=== PATIENT | female | born 1960 | race Caucasian/White ===

== ENCOUNTER 2017-12-20 06:11 | Inpatient (IN) | payer OTHER ==
[2017-12-20] MEDS ORDERED: IPRATROPIUM BROM 0.5MG/2.5ML ONE (06:38)
[2017-12-20] MEDS ORDERED: LEVALBUTEROL 1.25 MG/3 ML NEB ONE (06:38)
[2017-12-20 06:52] LABS: Absolute Lymphocytes (CBC) 4.6 K/uL (0.7-4.9); Absolute Neutrophil 7.2 K/uL (1.8-8.0); Basophils % 0.7 % (0-1.3); Eosinophils % 1.4 % (0-4.4); Hematocrit 42.4 % (36.0-45.0); Lymphocytes % 35.4 % (15.3-44.8); MCH 27.5 pg (27.0-35.0); MCV 86.2 fL (80-100); MPV 8.7 fL (7.6-11.3); Monocytes % 7.5 % (3.3-12.3); RBC Red Blood Cell Count 4.92 M/uL (3.86-4.86)
[2017-12-20 07:07] LABS: Protime INR 0.85
[2017-12-20 07:12] LABS: Potassium 3.9 mEq/L (3.6-5.0)
--- NOTE | 2017-12-20 07:15 | ER ---
Nurse's Notes [facility] Name: Ansley Henderson Age: 57 yrs Sex: Female : 1960 Arrival Date: 12/20/2017 Time: 06:13 Bed 7 Private MD: Diagnosis: Chronic obstructive pulmonary disease with (acute) exacerbation;Hypoxemia Presentation: 12/20 06:15 Presenting complaint: EMS states: they were called out for SOB. Upon arrival to aa1 residence pt RA O2 sat 88%. Pt given albuterol tx x 1 which increased O2 sat to 94% on RA. Pt reports hx of COPD and has been having SOB for over a month but became significantly worse in the past 24 hrs. Transition of care: patient was not received from another setting of care. Onset of symptoms was November 2017. Care prior to arrival: Medication(s) given: Albuterol Neb x 1. 06:15 Method Of Arrival: EMS: [facility] aa 06:15 Acuity: ENMANUEL 2 aa1 Triage Assessment: 06:20 General: Appears distressed, uncomfortable, Behavior is calm, cooperative, appropriate aa1 for age. Pain: Complains of pain in chest. Historical: - Allergies: 06:22 No Known Allergies; aa1 - Home Meds: 06:20 albuterol sulfate 90 mcg/actuation Inhl HFAA 1 puff every 4 hours [Active]; aspirin 81 aa1 mg Oral TbEC 1 tab once daily [Active]; lisinopril 20 mg Oral tab 1 tab once daily [Active]; prednisone 10 mg Oral tab 1 tab 2 times per day [Active]; Spiriva with HandiHaler 18 mcg inhalation CpDv 1 cap once daily [Active]; - PMHx: 06:20 CAD; COPD; HEART STENT; Hypertension; CVA; aa1 - PSHx: 06:20 ; aa1 - Immunization history:: Flu vaccine is not up to date. - Social history:: Smoking status: Patient/guardian denies using tobacco, the patient reports quitting approximately 2 years ago. Screenin:40 Abuse screen: Denies threats or abuse. Denies injuries from another. Nutritional tl1 screening: No deficits noted. Tuberculosis screening: No symptoms or risk factors identified. Fall Risk IV access (20 points). Assessment: 06:38 General: Appears distressed, uncomfortable, Behavior is cooperative, appropriate for tl1 age, anxious. Pain: Complains of pain in chest Pain currently is 10 out of 10 on a pain scale. Quality of pain is described as pressure, stabbing. Neuro: Level of Consciousness is awake, alert, obeys commands, Oriented to person, place, time, situation. Cardiovascular: Reports chest pain, shortness of breath, Rhythm is sinus rhythm. Respiratory: Reports shortness of breath at rest labored breathing pain with respiration Airway is patent Trachea midline Respiratory effort is labored, gasping, with retractions, using tripod position, Respiratory pattern is tachypnea Breath sounds are diminished bilaterally. Breath sounds with wheezes the patient has moderate shortness of breath. GI: Abdomen is non-distended, Bowel sounds present X 4 quads. Abd is soft and non tender X 4 quads. : No signs and/or symptoms were reported regarding the genitourinary system. EENT: No signs and/or symptoms were reported regarding the EENT system. Derm: No signs and/or symptoms reported regarding the dermatologic system. 07:45 Reassessment: Patient appears in no apparent distress at this time. Patient and/or ph family updated on plan of care and expected duration. Pain level reassessed. Patient is alert, oriented x 3, equal unlabored respirations, skin warm/dry/pink. Pt c/o pain in R side of chest, states, " I've been having pain off and on." Pt reports that pain is sharp and stabbing, worsened by inspiration, VSS, Spo2 95% on RA. 09:07 Reassessment: Patient appears in no apparent distress at this time. Patient and/or ph family updated on plan of care and expected duration. Pain level reassessed. Patient is alert, oriented x 3, equal unlabored respirations, skin warm/dry/pink. Dr Lucero at bedside to speak w/ pt. 10:30 Reassessment: Patient appears in no apparent distress at this time. Patient and/or ph family updated on plan of care and expected duration. Pain level reassessed. Patient is alert, oriented x 3, equal unlabored respirations, skin warm/dry/pink. Pt ambulated to restroom, became SOB and tachypneic, taken back to room via wheelchair, Spo2 91% RA after reaching room, pt placed on 2L NC for comfort, Spo2 95%. Vital Signs: 06:20 BP 139 / 89; Pulse 88; Resp 44; Temp 97.2; Pulse Ox 94% on R/A; Weight 72.57 kg; Height aa1 5 ft. 1 in. (154.94 cm); Pain 10/10; 06:41 BP 123 / 62; Pulse 73; Resp 28; Pulse Ox 100% on BiPAP; tl1 07:44 BP 126 / 55; Pulse 86; Resp 22; Pulse Ox 95% on R/A; ph 09:08 BP 129 / 50; Pulse 86; Resp 18; Temp 97.8(TE); Pulse Ox 95% on R/A; ph 10:30 BP 136 / 68; Pulse 79; Resp 22; Temp 97.8; Pulse Ox 95% on 2 lpm NC; ph 06:20 Body Mass Index 30.23 (72.57 kg, 154.94 cm) aa1 ED Course: 06:13 Patient arrived in ED. em1 06:17 Agustín Claudio MD is Attending Physician. tw4 06:19 Triage completed. aa1 06:20 Arm band placed on right wrist. Patient placed in an exam room, on a stretcher. aa1 06:29 X-ray completed. Portable x-ray completed in exam room. Patient tolerated procedure kp1 well. 06:30 XRAY Chest (1 view) In Process Unspecified. EDMS 06:41 No provider procedures requiring assistance completed. Inserted saline lock: 20 gauge tl1 in right antecubital area, using aseptic technique. Blood collected. 07:12 Sd Lucero MD is Hospitalizing Provider. tw4 07:32 Key Pickens, MESHA is Primary Nurse. ph 10:45 Patient has correct armband on for positive identification. Placed in gown. Bed in low ph position. Call light in reach. Side rails up X 1. laboratory monitor on. Pulse ox on. NIBP on. Warm blanket given. 10:45 Patient admitted, IV remains in place. ph Administered Medications: 06:22 Drug: Albuterol - atroVENT (3:1) (2.5 mg - 0.5 mg) 3 ml Route: Nebulizer; tl2 07:43 Follow up: Response: No adverse reaction ph 07:41 Drug: SOLU-Medrol 125 mg Route: IVP; Site: right antecubital; ph 07:43 Follow up: Response: No adverse reaction ph Outcome: 07:14 Decision to Hospitalize by Provider. tw4 10:50 Admitted to Tele accompanied by tech, via wheelchair, room 426, with oxygen, with ph chart, Report called to MESHA Levi 10:50 Condition: stable 10:50 Instructed on the need for admit. 11:04 Patient left the ED. ms Signatures: Dispatcher [employer] EDVirginia Sanchez RN RN aa1 Kayla Pickens ms, Eric em1 Lynnette Man RN RN tl1 Key Pickens RN RN Victoriano, Anamaria RN RN tl2 Zoe Rangel kp1 Agustín Claudio MD MD tw4 Corrections: (The following items were deleted from the chart) 09:08 09:07 Reassessment: Patient appears in no apparent distress at this time. Patient ph and/or family updated on plan of care and expected duration. Pain level reassessed. Patient is alert, oriented x 3, equal unlabored respirations, skin warm/dry/pink. ph
--- NOTE | 2017-12-20 07:15 | EDPHYS ---
Physician Documentation [facility] Name: Ansley Henderson Age: 57 yrs Sex: Female : 1960 Arrival Date: 12/20/2017 Time: 06:13 Bed 7 Private MD: ED Physician Agustín Claudio HPI: 12/20 06:33 This 57 yrs old Female presents to ER via EMS with complaints of SOB. tw4 06:33 The patient has shortness of breath at rest. Onset: The symptoms/episode began/occurred tw4 today. Duration: The symptoms are continuous, and are unchanged since they started. The patient's shortness of breath has no apparent modifying factors. Associated signs and symptoms: The patient has no apparent associated signs or symptoms. Severity of symptoms: At their worst the symptoms were moderate in the emergency department the symptoms are unchanged. The patient has not experienced similar symptoms in the past. Historical: - Allergies: 06:22 No Known Allergies; aa1 - Home Meds: 06:20 albuterol sulfate 90 mcg/actuation Inhl HFAA 1 puff every 4 hours [Active]; aspirin 81 aa1 mg Oral TbEC 1 tab once daily [Active]; lisinopril 20 mg Oral tab 1 tab once daily [Active]; prednisone 10 mg Oral tab 1 tab 2 times per day [Active]; Spiriva with HandiHaler 18 mcg inhalation CpDv 1 cap once daily [Active]; - PMHx: 06:20 CAD; COPD; HEART STENT; Hypertension; CVA; aa1 - PSHx: 06:20 ; aa1 - Immunization history:: Flu vaccine is not up to date. - Social history:: Smoking status: Patient/guardian denies using tobacco, the patient reports quitting approximately 2 years ago. ROS: 06:33 Constitutional: Negative for fever, chills, and weight loss, Eyes: Negative for injury, tw4 pain, redness, and discharge, Cardiovascular: Negative for chest pain, palpitations, and edema, Abdomen/GI: Negative for abdominal pain, nausea, vomiting, diarrhea, and constipation, Back: Negative for injury and pain. 06:33 Neuro: Negative for headache, weakness, numbness, tingling, and seizure, Psych: Negative for depression, anxiety, suicide ideation, homicidal ideation, and hallucinations. 06:33 Respiratory: Positive for cough, dyspnea on exertion, shortness of breath, wheezing, Negative for hemoptysis, orthopnea, pleurisy. Exam: 06:33 Constitutional: This is a well developed, well nourished patient who is awake, alert, tw4 and in no acute distress. Head/Face: Normocephalic, atraumatic. Chest/axilla: Normal chest wall appearance and motion. Nontender with no deformity. No lesions are appreciated. Cardiovascular: Regular rate and rhythm with a normal S1 and S2. No gallops, murmurs, or rubs. Normal PMI, no JVD. No pulse deficits. Respiratory: Lungs have equal breath sounds bilaterally, clear to auscultation and percussion. No rales, rhonchi or wheezes noted. No increased work of breathing, no retractions or nasal flaring. Abdomen/GI: Soft, non-tender, with normal bowel sounds. No distension or tympany. No guarding or rebound. No evidence of tenderness throughout. MS/ Extremity: Pulses equal, no cyanosis. Neurovascular intact. Full, normal range of motion. Neuro: Awake and alert, GCS 15, oriented to person, place, time, and situation. Cranial nerves II-XII grossly intact. Motor strength 5/5 in all extremities. Sensory grossly intact. Cerebellar exam normal. Normal gait. Vital Signs: 06:20 BP 139 / 89; Pulse 88; Resp 44; Temp 97.2; Pulse Ox 94% on R/A; Weight 72.57 kg; Height aa1 5 ft. 1 in. (154.94 cm); Pain 10/10; 06:41 BP 123 / 62; Pulse 73; Resp 28; Pulse Ox 100% on BiPAP; tl1 07:44 BP 126 / 55; Pulse 86; Resp 22; Pulse Ox 95% on R/A; ph 09:08 BP 129 / 50; Pulse 86; Resp 18; Temp 97.8(TE); Pulse Ox 95% on R/A; ph 10:30 BP 136 / 68; Pulse 79; Resp 22; Temp 97.8; Pulse Ox 95% on 2 lpm NC; ph 06:20 Body Mass Index 30.23 (72.57 kg, 154.94 cm) aa1 MDM: 06:17 Patient medically screened. tw4 07:10 Differential diagnosis: Chronic Obstructive Pulmonary Disease. Data reviewed: vital tw4 signs, nurses notes. Test interpretation: by ED physician or midlevel provider: ECG. Counseling: I had a detailed discussion with the patient and/or guardian regarding: the historical points, exam findings, and any diagnostic results supporting the discharge/admit diagnosis, lab results, radiology results. Physician consultation: Sd Lucero MD was contacted at 07:05, regarding admission, to the telemetry unit. patient's condition, and will see patient in ED. Admission orders: after a detailed discussion of the patient's condition and case, the admit orders are written by me. ED course: pt placed on BiPAP states she feels better. 12/20 06:21 Order name: Basic Metabolic Panel tw4 12/20 06:21 Order name: BNP tw4 12/20 06:21 Order name: CBC with Diff; Complete Time: 07:05 tw4 12/20 06:21 Order name: Ckmb tw4 12/20 06:21 Order name: CPK tw4 12/20 06:21 Order name: LFT's tw4 12/20 06:21 Order name: Magnesium tw4 12/20 06:21 Order name: PT-INR tw4 12/20 06:21 Order name: Ptt, Activated tw4 12/20 06:21 Order name: Troponin (emerg Dept Use Only) tw4 12/20 06:21 Order name: XRAY Chest (1 view) tw4 12/20 06:21 Order name: BIPAP tw4 12/20 07:15 Order name: ABG tw4 12/20 07:15 Order name: ABG Arterial Blood Gas [facility] 12/20 06:21 Order name: EKG; Complete Time: 06:22 tw12/20 06:21 Order name: Cardiac monitoring; Complete Time: 06:22 tw4 12/20 06:21 Order name: EKG - Nurse/Tech; Complete Time: 06:22 tw4 12/20 06:21 Order name: IV Saline Lock; Complete Time: 06:22 tw4 12/20 06:21 Order name: Labs collected and sent; Complete Time: 06:22 tw4 12/20 06:21 Order name: O2 Per Protocol; Complete Time: 06:22 tw4 12/20 06:21 Order name: O2 Sat Monitoring; Complete Time: 06:22 tw4 Administered Medications: 06:22 Drug: Albuterol - atroVENT (3:1) (2.5 mg - 0.5 mg) 3 ml Route: Nebulizer; tl2 07:43 Follow up: Response: No adverse reaction ph 07:41 Drug: SOLU-Medrol 125 mg Route: IVP; Site: right antecubital; ph 07:43 Follow up: Response: No adverse reaction ph Disposition: 12/20/17 07:14 Hospitalization ordered by Sd Lucero for Inpatient Admission. Preliminary diagnosis are Chronic obstructive pulmonary disease with (acute) exacerbation, Hypoxemia. - Bed requested for Telemetry/MedSurg (Inpatient). - Status is Inpatient Admission. ms - Condition is Fair. - Problem is an ongoing problem. - Symptoms are unchanged. UTI on Admission? No Signatures: Dispatcher [employer] Virginia Barcenas, RN RN aa1 Kayla Pickens ms, Shelby, RN RN Key Pickens RN RN [facility] RN RN tl2 Agustín Claudio MD MD tw4
[2017-12-20 07:18] LABS: Albumin 4.4 g/dL (3.2-5.5); Bilirubin Direct 0.1 mg/dL (0-0.2); Bilirubin Total 0.9 mg/dL (0.3-1.2); Magnesium 1.9 mg/dL (1.8-2.5); Protein, Total 7.5 g/dL (6.0-8.3)
[2017-12-20 07:22] LABS: CKMB Creatine Kinase MB 8.4 ng/ml (0.3-4.0)
[2017-12-20 07:31] LABS: Arterial Blood Carboxyhemoglob 0.5 % (0-1.5); Blood Gas Oxyhemoglobin 98.1 % (94-97); Blood O2 Saturation 99.4 % (92-98.5)
[2017-12-20] MEDS ORDERED: METHYLPREDNISOLONE 125 MG INJ ONE (07:54)
--- NOTE | 2017-12-20 09:56 | P.HP ---
Certification for Inpatient Patient admitted to: Observation With expected LOS: <2 Midnights Patient will require the following post-hospital care: None Practitioner: I am a practitioner with admitting privileges, knowledge of patient current condition, hospital course, and medical plan of care. Services: Services provided to patient in accordance with Admission requirements found in Title 42 Section 412.3 of the Code of Federal Regulations Patient History Date of Service: 12/20/17 (Hospitalist note) Reason for admission: Right-sided chest pain History of Present Illness: Patient is 57 years of age with a history off COPD noncompliance has not followed up with me for quite some time admitted with sudden onset of right- sided chest pain worse in the supine position unable to take a deep breath denies any fever chills cough sputum or hemoptysis no other complaints was admitted here from the emergency room Allergies No Known Allergies Allergy (Verified 01/18/17 22:07) Home Medications: Acetaminophen [Tylenol Extra Strength] 1,000 mg PO DAILY 01/18/17 Aspirin Chewable [Aspirin Chewable*] 81 mg PO DAILY 01/18/17 Albuterol Sulfate [Albuterol Sulfate 0.083% Neb Soln] 2.5 mg IH TID PRN #90 ml 01/20/17 Albuterol Sulfate [Proair Hfa] 8.5 gm IH TID PRN #90 hfa.aer.ad 01/20/17 Amlodipine [Norvasc*] 10 mg PO DAILY #30 tab 01/20/17 Carvedilol [Coreg*] 6.25 mg PO BID #60 tab 01/20/17 Fluticasone/Salmeterol [Advair 250/50 Diskus*] 1 puff IH BID #1 disk 01/20/17 Lisinopril [Prinivil*] 20 mg PO BID #60 tab 01/20/17 Omeprazole Magnesium [Prilosec Otc] 20 mg PO DAILY #30 tablet. 01/20/17 Prednisone [Prednisone*] 20 mg PO SEECOM #15 tab 01/20/17 Sulfamethoxazole/Trimethoprim [Bactrim Ds Tablet] 1 each PO BID #14 tablet 01/20 Tramadol HCl [Ultram] 50 mg PO TID PRN #15 tablet 01/20/17 - Past Medical/Surgical History Diabetic: No -: Hypertension -: Coronary artery disease, stent -: COPD -: hx Tobacco abuse -: GERD -: Gastric ulcers -: -: Stent placement Psychosocial/ Personal History: The patient is . She has 5 children. She currently lives by herself. She recently moved to the area from [place]. - Family History Mother -: Heart disease - Social History Alcohol use: Yes CD- Drugs: No Caffeine use: Yes Review of Systems 10-point ROS is otherwise unremarkable Physical Examination - Physical Exam General: Alert, Oriented x3 HEENT: Atraumatic Neck: Supple Respiratory: Clear to auscultation bilaterally, Diminished Cardiovascular: No edema, Normal S1 S2 Gastrointestinal: Normal bowel sounds, Soft and benign Musculoskeletal: No clubbing, No swelling, No contractures Integumentary: No rashes, No significant lesion Neurological: Normal speech, Normal strength at 5/5 x4 extr - Studies Laboratory Data (last 24 hrs) 12/20/17 05:15: PT 10.0, INR 0.85, APTT 29.8 12/20/17 05:15: WBC 13.1 H, Hgb 13.5, Hct 42.4, Plt Count 356 12/20/17 05:15: B-Natriuretic Peptide 12 12/20/17 05:15: Sodium 133 L, Potassium 3.9, BUN 16, Creatinine 0.75, Glucose 122 H, Magnesium 1.9, Total Bilirubin 0.9, AST 20, ALT 21, Alkaline Phosphatase 72 Assessment and Plan - Problems (Diagnosis) (1) Chest pain Onset Date: 01/20/17 Current Visit: No Status: Acute Plan: Patient is 57 years of age with a history of COPD noncompliance active smoker admitted with sudden onset of right-sided chest pain which is worse in the supine positions came on rather suddenly noncompliant with it inhalers patient' s chest x-ray is clear mildly elevated white count mildly hypoxic will Dc BiPAP start on bronchodilators steroids is atypical cuff chest pain monitor resume her home medication possible discharge tomorrow troponins Qualifiers: Chest pain type: chest pain on breathing Qualified Code(s): R07.1 - Chest pain on breathing; R07.81 - Pleurodynia - Advance Directives Does patient have a Living Will: Yes Does patient have a Durable POA for Healthcare: No
[2017-12-20 11:09] VITALS: BMI 30.2
--- NOTE | 2017-12-20 11:44 | RAD REPORT ---
EXAM DESCRIPTION: RAD - Chest Single View - 12/20/2017 6:31 am CLINICAL HISTORY: Shortness of breath. COMPARISON: 05/30/2017 FINDINGS: Portable technique limits examination quality. The lungs are grossly clear. The heart is normal in size. No displaced fractures. IMPRESSION: No acute intrathoracic process suspected.
--- NOTE | 2017-12-20 12:02 | EKG ---
Test Date: 2017-12-20 Test Time: 06:19:26 Digital Photographer: BRANDEE MEASUREMENT RESULTS: Intervals: Rate: 82 NJ: 126 QRSD: 72 QT: 368 QTc: 429 [employer]: P: 70 NJ: 126 QRS: 75 T: 72 INTERPRETIVE STATEMENTS: Normal sinus rhythm Normal ECG Compared to ECG 05/30/2017 15:33:41 No significant changes Electronically Signed On 12-20-17 12:02:09 CDT by Duc Winslow
[2017-12-20] MEDS: IPRATROPIUM BROM 0.5MG/2.5ML NEB SCH ×2 (13:30→19:48)
[2017-12-20] MEDS: METHYLPREDNISOLONE 40 MG INJ IV SCH (16:50)
[2017-12-20] MEDS ORDERED: ACETAMINOPHEN 500 MG TAB PO PRN (19:52)
[2017-12-21] MEDS: METHYLPREDNISOLONE 40 MG INJ IV SCH ×3 (00:36→16:33)
[2017-12-21] MEDS: IPRATROPIUM BROM 0.5MG/2.5ML NEB SCH ×6 (01:31→23:15)
[2017-12-21] MEDS ORDERED: ASPIRIN 81 MG CHEWABLE TABLET PO SCH (09:00)
[2017-12-21] MEDS ORDERED: RANITIDINE 150 MG TABLET PO SCH (09:00)
[2017-12-21] MEDS ORDERED: NITROGLYCERIN 0.4 MG/TAB SL PRN (09:31)
--- NOTE | 2017-12-21 09:38 | P.PN ---
Subjective Date of Service: 12/21/17 (Hospitalist) Chief Complaint: Right-sided chest pain No change she is still having a significant amount of discomfort and right admitted that chest worse with exertion for when she is lying down did by breathing no change with bronchodilators no ischemic changes Review of Systems General: Weakness Respiratory: Cough, Shortness of Breath Cardiovascular: Chest Pain Physical Examination - Vital Signs Temperature: 97 F Blood Pressure: 147/70 Pulse: 86 Respirations: 16 Pulse Ox (%): 90 - Physical Exam General: Alert, Oriented x3 Neck: Supple Respiratory: Clear to auscultation bilaterally Cardiovascular: No edema, Regular rate/rhythm, Normal S1 S2 Gastrointestinal: Normal bowel sounds, Soft and benign Assessment & Plan - Problems (Diagnosis) (1) Chest pain Onset Date: 01/20/17 Current Visit: No Status: Acute Plan: Patient admitted with chest pain she still continues to have chest pain despite the steroids and bronchodilators worse with exertion he points to the right- sided and retrosternal area of order another chest x-ray repeat EKG upon his negative EKGs normal cardiology consult Qualifiers: Chest pain type: chest pain on breathing Qualified Code(s): R07.1 - Chest pain on breathing; R07.81 - Pleurodynia
[2017-12-21] MEDS ORDERED: METOPROLOL TAR 25 MG TAB PO SCH (10:00)
[2017-12-21] MEDS ORDERED: ASPIRIN EC 81 MG TAB PO SCH (10:00)
--- NOTE | 2017-12-21 10:19 | EKG ---
Test Date: 2017-12-21 Test Time: 10:09:11 Japanese Tutor: SON MEASUREMENT RESULTS: Intervals: Rate: 88 TN: 136 QRSD: 76 QT: 356 QTc: 430 [place]: P: 69 TN: 136 QRS: 69 T: 70 INTERPRETIVE STATEMENTS: Normal sinus rhythm Normal ECG Compared to ECG 12/20/2017 06:19:26 No significant changes Electronically Signed On 12-21-17 10:18:54 CDT by Duc Winslow
[2017-12-21] MEDS: MORPHINE 4 MG/ML SYR IV PRN ×2 (10:21→23:51)
[2017-12-21 10:22] LABS: Hematocrit 39.5 % (36.0-45.0); MCH 27.9 pg (27.0-35.0); MCV 85.9 fL (80-100); MPV 8.7 fL (7.6-11.3)
[2017-12-21] MEDS: PANTOPRAZOLE 40MG TABLET PO SCH ×2 (10:22→16:33)
--- NOTE | 2017-12-21 10:57 | RAD REPORT ---
EXAM DESCRIPTION: [place] Single View12/21/2017 10:42 am CLINICAL HISTORY: Chest pain COMPARISON: December 20 2017 FINDINGS: The lungs are hyperaerated. The lungs appear clear of acute infiltrate. The heart is norm al size IMPRESSION: No acute abnormalities displayed
[2017-12-21] MEDS: ALBUTEROL 2.5 MG/3 ML NEB SOL NEB SCH ×4 (11:25→23:15)
[2017-12-21] MEDS ORDERED: IPRATROPIUM BROM 0.5MG/2.5ML ONE (11:43)
[2017-12-21] MEDS ORDERED: ALBUTEROL 2.5 MG/3 ML NEB SOL ONE (11:43)
[2017-12-21] MEDS: TIOTROPIUM (SPIRIVA) 5 SPRAYS/INHALER IH SCH (12:00)
--- NOTE | 2017-12-21 15:48 | CON ---
Chief Complaint: Chest pain. History Of Present Illness: Ms. Henderson has stent placed in her right coronary artery in April 2015 . Since then, she has had 4 separate evaluations for ischemic heart disease. They have all been neg ative. Nobody has repeated a cardiac cath, but she admitted in hospital, had negative enzymes, lalit l EKGs, normal stress test, normal echocardiogram, her last one was some 6 months ago, it was not don e here. The last one done in our hospital was January 20, 2017, so 11 months ago roughly. She is a heavy cigarette smoker. She has severe COPD. She has a record of poor medical compliance, often gets off medicines. She states that she quit smoking in April 2015. Outpatient Medications: Aspirin, albuterol, ranitidine, Spiriva, prednisone, and lisinopril. Allergies: SHE HAS NO ALLERGIES. Physical Examination: Vital Signs: 5 feet 1 inch, 160 pounds. General: Appears to be older than stated age. She is in [id number] respiratory distress. She is not wheezing. There was actually very little air movement. Lungs: Do not reveal wheezes or crackles. Abdomen: Soft. Extremities: Significant for palpable distal pulses. There is no cyanosis, clubbing, or edema. No ulcers. The EKG is normal and the troponins are all normal. Impression: Ms. Henderson is not having heart failure or an acute coronary syndrome. She is having se le asthma attack. Her chest x-ray would argue that is the case as well. The lungs are hyperinflat ed, diaphragm is depressed. There is no mass or infiltrate or pulmonary edema. I think we should in crease the amount of bronchodilator treatment she has. She is on metoprolol, which probably is harmf ul in her case. It is supposedly is cardioselective that I think her breathing probably got worse an d it is perhaps because of that she is on a significant dose of methylprednisolone when I think addin g albuterol to her regimen and increasing it every 4 hours would probably be helpful. When she is br eathing better, we can attempt a pharmacologic nuclear stress test. SH/MODL Voice ID: [id number] Report ID: [id number]
[2017-12-22] MEDS: METHYLPREDNISOLONE 40 MG INJ IV SCH ×2 (00:22→08:11)
[2017-12-22] MEDS: IPRATROPIUM BROM 0.5MG/2.5ML NEB SCH ×5 (03:36→19:28)
[2017-12-22] MEDS: ALBUTEROL 2.5 MG/3 ML NEB SOL NEB SCH ×5 (03:37→19:29)
[2017-12-22] MEDS: ARFORMOTEROL TARTRATE 15 MCG/2 ML VIAL.NEB NEB SCH ×2 (07:42→19:29)
[2017-12-22] MEDS: ASPIRIN EC 81 MG TAB PO SCH (08:11)
[2017-12-22] MEDS: PANTOPRAZOLE 40MG TABLET PO SCH ×2 (08:11→16:32)
[2017-12-22] MEDS: TIOTROPIUM (SPIRIVA) 5 SPRAYS/INHALER IH SCH (09:00)
[2017-12-22] MEDS: ALPRAZOLAM 0.25 MG TABLET PO PRN ×2 (09:52→20:28)
--- NOTE | 2017-12-22 11:06 | ECHO ---
HEIGHT: 5 ft 1 in WEIGHT: 160 lb 0 oz DATE OF STUDY: 12/22/[address]: Sd Lucero MD 2-DIMENSIONAL: YES M.MODE: YES DOPPLER: YES COLOR FLOW: YES TDS: NO PORTABLE: NO DEFINITY: NO BUBBLE STUDY: NO DIAGNOSIS: CHEST PAIN CARDIAC HISTORY: CATHERIZATION: YES SURGERY: NO PROSTHETIC VALVE: NO PACEMAKER: NO MEASUREMENTS (cm) DIASTOLIC (NORMALS) SYSTOLIC (NORMALS) IVSd 0.8 (0.6-1.2) LA Diam 2.7 (1.9-4.0) LVEF 71% LVIDd 3.7 (3.5-5.7) LVIDs 2.3 (2.0-3.5) %FS 39% LVPWd 0.9 (0.6-1.2) Ao Diam 2.7 (2.0-3.7) 2 DIMENSIONAL ASSESSMENT: RIGHT ATRIUM: NORMAL LEFT ATRIUM: NORMAL RIGHT VENTRICLE: NORMAL LEFT VENTRICLE: NORMAL TRICUSPID VALVE: NORMAL MITRAL VALVE: NORMAL PULMONIC VALVE: NORMAL AORTIC VALVE: NORMAL PERICARDIAL EFFUSION: NONE AORTIC ROOT: NORMAL LEFT VENTRICULAR WALL MOTION: NORMAL. DOPPLER/COLOR FLOW: PHYSIOLOGIC TRICUSPID REGURGITATION. NORMAL RIGHT VENTRICULAR SYSTOLIC PRESSURE. TRACE OF AORTIC REGURGITATION. COMMENTS: NORMAL 2D ECHO. TRACE OF AORTIC REGURGITATION. TECHNOLOGIST: GIANNA DUMONT
--- NOTE | 2017-12-22 11:35 | P.PN ---
Subjective Date of Service: 12/22/17 Chief Complaint: Right-sided chest pain Subjective: Doing well Physical Examination - Vital Signs Temperature: 97.1 F Blood Pressure: 130/69 Pulse: 71 Respirations: 16 Pulse Ox (%): 99 - Physical Exam General: Alert, In no apparent distress, Oriented x3, Cooperative HEENT: Atraumatic Neck: Supple Respiratory: Expiratory wheezes (Bilateral) Cardiovascular: Normal pulses, Regular rate/rhythm Gastrointestinal: Normal bowel sounds, Soft and benign, Non-distended, No tenderness, No masses, No rebound, No guarding Musculoskeletal: No erythema, No tenderness, No warmth Integumentary: No tenderness/swelling, No erythema, No warmth, No cyanosis Neurological: Normal speech, Normal strength at 5/5 x4 extr, Normal tone, Normal affect Lymphatics: No axilla or inguinal lymphadenopathy - Studies Medications List Reviewed: Yes Assessment & Plan - Problems (Diagnosis) (1) Chest pain Onset Date: 12/22/17 Current Visit: Yes Status: Acute Plan: Patient has history of CAD. Cardiology plans for a cardiac stress test. If negative plan to discharge for COPD exacerbation. Echo shows ejection fraction 71% with trace aortic regurgitation. Qualifiers: Chest pain type: chest pain on breathing Qualified Code(s): R07.1 - Chest pain on breathing; R07.81 - Pleurodynia (2) COPD (chronic obstructive pulmonary disease) Onset Date: 01/20/17 Current Visit: No Status: Acute Plan: Will continue with medication. Medications adjusted. Qualifiers: COPD type: COPD with acute exacerbation Qualified Code(s): J44.1 - Chronic obstructive pulmonary disease with (acute) exacerbation (3) Shortness of breath Onset Date: 01/20/17 Current Visit: No Status: Acute Plan: Secondary COPD exacerbation. Will continue with treatment. (4) Coronary artery disease Onset Date: 01/20/17 Current Visit: No Status: Chronic Plan: Cardiology recommends cardiac stress test. Await results. Qualifiers: Coronary Disease-Associated Artery/Lesion type: unspecified vessel or lesion type [place] vs. transplanted heart: unspecified whether [place] or transplanted heart Associated angina: angina presence unspecified Qualified Code(s): I25.10 - Atherosclerotic heart disease of [place] coronary artery without angina pectoris (5) GERD (gastroesophageal reflux disease) Onset Date: 01/20/17 Current Visit: No Status: Chronic Plan: Will provide medication. Qualifiers: Esophagitis presence: esophagitis presence not specified Qualified Code(s) : K21.9 - Gastro-esophageal reflux disease without esophagitis (6) Hypertension Onset Date: 01/20/17 Current Visit: No Status: Chronic Plan: Blood pressure stable at this time. Will monitor closely. Qualifiers: Hypertension type: essential hypertension Qualified Code(s): I10 - Essential (primary) hypertension (7) Noncompliance Current Visit: Yes Status: Acute Plan: Patient has been non compliance with medication and follow up. This was addressed in detail. At discharge patient will need to follow up with a PCP and with specialty care. Discharge Plan: Home Plan to discharge in: 24 Hours Time Spent Managing Pts Care (In Minutes): 55
--- NOTE | 2017-12-22 13:10 | RAD REPORT ---
EXAM DESCRIPTION: CT - Chest For Pe Angio - 12/22/2017 12:54 pm CLINICAL HISTORY: Chest pain, shortness of breath, past history of vascular stenting not otherwise specified COMPARISON: Chest film December 21, CT PE study May 2017 TECHNIQUE: Dynamically enhanced 3 mm thick images of the chest were obtained during administration o f approximately 150mL Isovue 370 IV contrast. Coronal and oblique reconstruction images were generate d and reviewed. Exam utilizes a protocol to evaluate the pulmonary arterial tree. All CT scans are performed using dose optimization technique as appropriate and may include automated exposure control or mA/KV adjustment according to patient size. FINDINGS: No pulmonary emboli are identified. The aorta as imaged shows no acute or suspicious finding. No pericardial thickening or effusion. No focal mass or infiltrate of the lung parenchyma. Emphysematous changes are present throughout the lung colindres in a pattern similar to the May comparison. No pleural effusion or pleural thickeni ng. No mediastinal or hilar suspicious masses. No chest wall masses or abnormal axillary lymphadenopathy. IMPRESSION: No pulmonary emboli identified. Lung parenchymal emphysema changes are similar to May 2017. No acute lung parenchymal process.
[2017-12-22] MEDS ORDERED: TRAMADOL HCL 50 MG TAB PO PRN (15:21)
[2017-12-22] MEDS ORDERED: ENOXAPARIN 40 MG/0.4 ML SQ SCH (17:00)
[2017-12-22 17:38] LABS: Barbiturates NEGATIVE; Benzodiazepines NEGATIVE; Cocaine NEGATIVE; METHAMPHETAM NEGATIVE; Opiates NEGATIVE; Phencyclidine NEGATIVE; THC Cannibis POSITIVE
[2017-12-22] MEDS: predniSONE 20 MG TAB PO SCH (20:28)
[2017-12-22] MEDS: MORPHINE 4 MG/ML SYR IV PRN (21:46)
[2017-12-23] MEDS: IPRATROPIUM BROM 0.5MG/2.5ML NEB SCH ×5 (03:56→16:07)
[2017-12-23] MEDS: ALBUTEROL 2.5 MG/3 ML NEB SOL NEB SCH ×5 (03:56→16:07)
[2017-12-23 06:16] LABS: Potassium 5.2 mEq/L (3.6-5.0)
[2017-12-23] MEDS: ARFORMOTEROL TARTRATE 15 MCG/2 ML VIAL.NEB NEB SCH (07:25)
[2017-12-23] MEDS ORDERED: REGADENOSON 0.4 MG/5 ML SYR IV ONE (07:40)
[2017-12-23] MEDS ORDERED: LISINOPRIL 10 MG TAB PO SCH (09:00)
[2017-12-23] MEDS ORDERED: TIOTROPIUM 5 SPRAYS/INHALER IH SCH (09:00)
--- NOTE | 2017-12-23 10:23 | P.PN ---
Subjective Date of Service: 12/23/17 Chief Complaint: Right-sided chest pain Subjective: Improving (Patient doing well. Patient to have stress test today.) Physical Examination - Vital Signs Temperature: 98.7 F Blood Pressure: 138/67 Pulse: 82 Respirations: 18 Pulse Ox (%): 93 - Physical Exam General: Alert, In no apparent distress, Oriented x3, Cooperative HEENT: Atraumatic Neck: Supple Respiratory: Clear to auscultation bilaterally, Normal air movement Cardiovascular: Normal pulses, Regular rate/rhythm Gastrointestinal: Normal bowel sounds, Soft and benign, Non-distended Musculoskeletal: No erythema, No tenderness, No warmth Integumentary: No tenderness/swelling, No erythema, No warmth, No cyanosis Neurological: Normal speech, Normal strength at 5/5 x4 extr, Normal tone, Normal affect Lymphatics: No axilla or inguinal lymphadenopathy - Studies Medications List Reviewed: Yes Assessment & Plan - Problems (Diagnosis) (1) Chest pain Onset Date: 12/22/17 Current Visit: Yes Status: Acute Plan: Patient has history of CAD. Cardiology plans for a cardiac stress test today. If negative plan to discharge for COPD exacerbation. Echo shows ejection fraction 71% with trace aortic regurgitation. CT angiogram negative for pulmonary embolism. COPD changes noted. Qualifiers: Chest pain type: chest pain on breathing Qualified Code(s): R07.1 - Chest pain on breathing; R07.81 - Pleurodynia (2) COPD (chronic obstructive pulmonary disease) Onset Date: 01/20/17 Current Visit: No Status: Acute Plan: Will continue with medication. Medications adjusted. Patient qualified for home oxygen to maintain sats above 90%. Patient will need Spiriva and Symbicort at discharge. Patient will need a follow up with pulmonology as an outpatient. Tobacco cessation addressed in detail. Qualifiers: COPD type: COPD with acute exacerbation Qualified Code(s): J44.1 - Chronic obstructive pulmonary disease with (acute) exacerbation (3) Shortness of breath Onset Date: 01/20/17 Current Visit: No Status: Acute Plan: Secondary COPD exacerbation. Will continue with treatment. Patient to have stress test today. Continue with above plan of care. (4) Coronary artery disease Onset Date: 01/20/17 Current Visit: No Status: Chronic Plan: Cardiology recommends cardiac stress test. Await results. Qualifiers: Coronary Disease-Associated Artery/Lesion type: unspecified vessel or lesion type [place] vs. transplanted heart: unspecified whether [place] or transplanted heart Associated angina: angina presence unspecified Qualified Code(s): I25.10 - Atherosclerotic heart disease of [place] coronary artery without angina pectoris (5) GERD (gastroesophageal reflux disease) Onset Date: 01/20/17 Current Visit: No Status: Chronic Plan: Will provide medication. Patient will need Protonix at discharge. Patient may benefit with GI evaluation as an outpatient. Qualifiers: Esophagitis presence: esophagitis presence not specified Qualified Code(s) : K21.9 - Gastro-esophageal reflux disease without esophagitis (6) Hypertension Onset Date: 01/20/17 Current Visit: No Status: Chronic Plan: Blood pressure stable at this time. Will monitor closely. Patient will require lisinopril at discharge. Qualifiers: Hypertension type: essential hypertension Qualified Code(s): I10 - Essential (primary) hypertension (7) Noncompliance Current Visit: Yes Status: Acute Plan: Patient has been non compliance with medication and follow up. This was addressed in detail. At discharge patient will need to follow up with a PCP and with specialty care. Discharge Plan: Home Plan to discharge in: 24 Hours Time Spent Managing Pts Care (In Minutes): 55
[2017-12-23] MEDS: PANTOPRAZOLE 40MG TABLET PO SCH (10:43)
[2017-12-23] MEDS: ASPIRIN EC 81 MG TAB PO SCH (10:43)
[2017-12-23] MEDS: predniSONE 20 MG TAB PO SCH (10:44)
--- NOTE | 2017-12-23 10:50 | RAD REPORT ---
EXAM DESCRIPTION: NM - Rest Stress Cardiac Imaging - 12/23/2017 10:28 am CLINICAL HISTORY: Chest pain. COMPARISON: 01/20/2017 TECHNIQUE: The patient was administered approximately 10mCi of Tc 99m Sestamibi prior to resting SPE CT imaging of the heart. The patient was then administered approximately 30 mCi of Tc 99m Sestamibi f ollowing exercise or pharmacologic stress. Multiplanar SPECT images were reviewed. FINDINGS: No stress induced ischemic defect is seen to suggest stress induced ischemia. No fixed def ect is seen to suggest hibernating myocardium or scarred myocardium. The end diastolic volume is 78 ml, the end systolic volume is 26 ml, and the ejection fraction is 67 %. IMPRESSION: No stress induced ischemia.
--- NOTE | 2017-12-23 11:09 | TREADPHA ---
DX: CHEST PAIN Date of Study: 12/23/2017 Ht: 5' 1 " Wt: 160 lb 0 oz Consulting Physician: LIV MEDICATIONS: TYLENOL, PROVENTIL, XANAX, BROVANA, ASPIRIN, LOVENOX, NITROSTAT, PROTONIX, DELTASONE, ULTRAM. HISTORY: 57 YEAR OLD FEMALE HERE FOR CHEST PAIN. HISTORY OF CORONARY ARTERY DISEASE, COPD, CARDIAC STENT, HYPERTENSION AND CEREBRAL VASCULAR ACCIDENT. PHYSICIAL EXAMINATION: RESTING B.P.: 158/81 RESTING H.R.: 84 RESTING EKG: NORMAL PROTOCOL: LEXISCAN EXERCISE TIME: 3:30 B.P. AT [place] STRESS: 155/67 IMPRESSION: LEXISCAN STRESS TEST PERFORMED. CARDIOLITE INJECTED PER PROTOCOL. NO ARRHYTHMIAS NOTED. COMPLAINTS 2/10 RIGHT UPPER CHEST PAIN THAT INCREASES WITH DEEP BREATH PRIOR TO TEST. PAIN RELIEVED DURING TEST. SEE NUCLEAR MEDICINE REPORT.
--- NOTE | 2017-12-23 11:14 | P.DS ---
Admission Date: 12/20/17 Discharge Date: 12/23/17 Primary Care Provider: guille Disposition: ROUTINE DISCHARGE Discharge Condition: GOOD Reason for Admission: Right-sided chest pain Consultations: Pulmonology-Dr. Lucero Cardiology-Dr. Winslow Procedures: Cardiac stress test: No stress-induced ischemia noted. Echocardiogram: Ejection fraction 71%. Trace aortic regurgitation noted CT angiogram: No pulmonary embolism. COPD changes noted - Problems (1) Chest pain Onset Date: 12/22/17 Current Visit: Yes Status: Acute Qualifiers: Chest pain type: chest pain on breathing Qualified Code(s): R07.1 - Chest pain on breathing; R07.81 - Pleurodynia (2) COPD (chronic obstructive pulmonary disease) Onset Date: 01/20/17 Current Visit: No Status: Acute Qualifiers: COPD type: COPD with acute exacerbation Qualified Code(s): J44.1 - Chronic obstructive pulmonary disease with (acute) exacerbation (3) Shortness of breath Onset Date: 01/20/17 Current Visit: No Status: Acute (4) Coronary artery disease Onset Date: 01/20/17 Current Visit: No Status: Chronic Qualifiers: Coronary Disease-Associated Artery/Lesion type: unspecified vessel or lesion type [place] vs. transplanted heart: unspecified whether [place] or transplanted heart Associated angina: angina presence unspecified Qualified Code(s): I25.10 - Atherosclerotic heart disease of [place] coronary artery without angina pectoris (5) GERD (gastroesophageal reflux disease) Onset Date: 01/20/17 Current Visit: No Status: Suspected Qualifiers: Esophagitis presence: esophagitis presence not specified Qualified Code(s) : K21.9 - Gastro-esophageal reflux disease without esophagitis (6) Hypertension Onset Date: 01/20/17 Current Visit: No Status: Chronic Qualifiers: Hypertension type: essential hypertension Qualified Code(s): I10 - Essential (primary) hypertension (7) Noncompliance Current Visit: Yes Status: Acute (8) Former smoker Onset Date: 01/20/17 Current Visit: No Status: Chronic Brief History of Present Illness: 57-year-old female present emergency room with increasing shortness of breath, cough, congestion with right-sided chest pain. Patient has been non compliant with her medications in the past. Patient with history of COPD, hypertension and CAD. Patient was admitted for treatment. Hospital Course: Patient presented with chest pain and shortness of breath. Patient evaluated by Cardiology and pulmonology. Cardiac enzymes remained unremarkable. Echocardiogram showed normal ejection fraction 71% with trace aortic regurgitation. Stress test showed no stress-induced ischemia. CT angiogram showed no pulmonary embolism, COPD changes noted. Chest pain likely related to COPD exacerbation. Patient was evaluated by pulmonology. Apparently the patient is not been compliant with her medication and follow up. Patient required oxygen at discharge. At discharge patient will continue with prednisone 20 mg 1 pill twice daily for 5 days then 1 pill once daily for 5 days. Patient will continue with Spiriva 1 puff daily. New medication- Symbicort 160 mcg 2 puffs twice daily will be added. She may continue with Pro air 2 puffs 3 times a day as needed for shortness of breath. Patient has qualified for home oxygen with her diagnosis of COPD. She will maintain sats above 90%. Patient will need to limit activity and exercise. Further adjustment can be done by pulmonology. Recommendation is for the patient to follow up with pulmonology as an outpatient to further monitor and address. Cardiology recommended no use of beta blockers in the future is the patient is not been able tolerate medication. Patient has hypertension. Patient has been non compliant with her medication. Medications have been adjusted. Patient will continue with lisinopril 10 mg daily at discharge. Recommendation is to maintain blood pressures less 150/80. Further adjustment can be done by her PCP. Tobacco cessation education will be provided. Compliance with follow up and medications addressed in detail. Patient likely has GERD. Patient will continue with Protonix 40 mg 1 pill once daily. Patient may benefit with GI evaluation as an outpatient. Vital Signs/Physical Exam: Temp Pulse Resp BP Pulse Ox 98.7 F 82 18 138/67 93 12/23/17 10:23 12/23/17 10:44 12/23/17 10:23 12/23/17 10:44 12/23/17 10:23 General: Alert, In no apparent distress, Oriented x3, Cooperative HEENT: Atraumatic, Mucous membr. moist/pink Neck: Supple Respiratory: Clear to auscultation bilaterally, Normal air movement Cardiovascular: Normal pulses, Regular rate/rhythm Gastrointestinal: Normal bowel sounds, Soft and benign, Non-distended, No tenderness, No masses, No rebound, No guarding Musculoskeletal: No erythema, No tenderness, No warmth Integumentary: No tenderness/swelling, No erythema, No warmth, No cyanosis Neurological: Normal speech, Normal strength at 5/5 x4 extr, Normal tone, Normal affect Laboratory Data at Discharge: WBC 15.2 K/uL (4.3-10.9) H D 12/21/17 10:02 Hgb 12.8 g/dL (12.0-15.0) 12/21/17 10:02 Hct 39.5 % (36.0-45.0) 12/21/17 10:02 Plt Count 315 K/uL (152-406) 12/21/17 10:02 PT 10.0 SECONDS (9.5-12.5) 12/20/17 05:15 INR 0.85 12/20/17 05:15 APTT 29.8 SECONDS (24.3-36.9) 12/20/17 05:15 Sodium 135 mEq/L (135-145) 12/23/17 05:31 Potassium 4.8 mEq/L (3.6-5.0) 12/23/17 07:59 BUN 14 mg/dL (6-20) 12/23/17 05:31 Creatinine 0.77 mg/dL (0.44-1.00) 12/23/17 05:31 Glucose 133 mg/dL (65-120) H 12/23/17 05:31 Magnesium 2.0 mg/dL (1.8-2.5) 12/23/17 05:31 Total Bilirubin 0.9 mg/dL (0.3-1.2) 12/20/17 05:15 AST 20 IU/L (10-42) 12/20/17 05:15 ALT 21 IU/L (10-60) 12/20/17 05:15 Alkaline Phosphatase 72 IU/L (42-121) 12/20/17 05:15 Troponin I 0.03 ng/mL (<0.03) 12/23/17 05:31 B-Natriuretic Peptide 12 pg/ml (<=100) 12/20/17 05:15 Home Medications: Aspirin Chewable [Aspirin Chewable*] 81 mg PO DAILY 01/18/17 Albuterol Sulfate [Proair Hfa] 8.5 gm IH TID PRN #90 hfa.aer.ad 01/20/17 Budesonide/Formoterol Fumarate [Symbicort 160-4.5 Mcg Inhaler] 2 puff IH BID #1 hfa.aer.ad 12/22/17 Lisinopril [Prinivil*] 10 mg PO DAILY #30 tab 12/22/17 Pantoprazole [Protonix Tab] 40 mg PO DAILY #30 tab 12/22/17 Prednisone [Prednisone*] 20 mg PO SEECOM #15 tab 12/22/17 Tiotropium [place] [Spiriva] 1 inhaler IH DAILY #1 inhaler 12/22/17 New Medications: Budesonide/Formoterol Fumarate [Symbicort 160-4.5 Mcg Inhaler] 2 puff IH BID #1 hfa.aer.ad Lisinopril [Prinivil*] 10 mg PO DAILY #30 tab Pantoprazole [Protonix Tab] 40 mg PO DAILY #30 tab Prednisone [Prednisone*] 20 mg PO SEECOM #15 tab Tiotropium [place] [Spiriva] 1 inhaler IH DAILY #1 inhaler Patient Discharge Instructions: 1. Patient will need a follow up with her PCP in 1 week to follow up this hospitalization. 2. Patient presented with chest pain patient evaluated by Cardiology. Cardiac enzymes unremarkable. Echocardiogram showed normal ejection fraction 71%. Stress test showed no stress-induced ischemia. CT angiogram showed no pulmonary embolism. Chest pain likely related to COPD exacerbation. At discharge patient will continue with prednisone 20 mg 1 pill twice daily for 5 days then 1 pill once daily for 5 days. Patient will continue with Spiriva 1 puff daily. New medication- Symbicort 160 mcg 2 puffs twice daily will be added. She may continue with Pro air 2 puffs 3 times a day as needed for shortness of breath. Patient has qualified for home oxygen with her diagnosis of COPD. She will maintain sats above 90%. Further adjustment can be done by pulmonology. Recommendation is for the patient to follow up with pulmonology as an outpatient to further monitor and address. 3. Patient has hypertension. Medications have been adjusted. Patient will continue with lisinopril 10 mg daily. Recommendation is to maintain blood pressures less 150/80. Further adjustment can be done by her PCP. 4. Tobacco cessation education will be provided. 5. Compliance with follow up and medications addressed in detail. 6. Patient likely has GERD. Patient will continue with Protonix 40 mg 1 pill once daily. Patient may benefit with GI evaluation as an outpatient. Diet: AHA Activity: Ad cathy Time spent managing pt's care (in minutes): 55
[2017-12-23 12:45] VITALS: O2SAT 93
[2017-12-23 12:52] VITALS: BP 132/61; TEMP 97.7
--- NOTE | 2017-12-24 02:21 | PN ---
The patient was admitted by Dr. Brown and seen by Dr. Winslow for chest pain. A stress Cardiolite th at was done today was normal. The EKG interpretation did not show any ischemic changes with normal b lood pressure response. No arrhythmias. Lexiscan interpretation was negative. She can go home when ever it is okay with Dr. Brown. WU/NATALY Voice ID: [id number] Report ID: [id number]
== END 2017-12-23 16:20 | disposition home or self-care (01) | DRG 192 ==
LOC: ER 06:11 → ERHOLD 08:21 → 4TH 10:51
PROVIDERS: ADMIT Internal Medicine Sleep Medicine; ATTEND Internal Medicine Sleep Medicine
DX: J44.1 Chronic obstructive pulmonary disease with (acute) exacerbation (principal); I25.10 Atherosclerotic heart disease of native coronary artery without angina pectoris; I10 Essential (primary) hypertension; Z91.14 Patient's other noncompliance with medication regimen; K21.9 Gastro-esophageal reflux disease without esophagitis; Z95.5 Presence of coronary angioplasty implant and graft; F17.210 Nicotine dependence, cigarettes, uncomplicated
CPT/HCPCS: 36415; 71045; 71275; 78452; 80048; 80076; 80307; 82550; 82553; 82805; 83735; 83880; 84132; 84484; 85025; 85027; 85610; 85730; 93005; 93017; 93306; 94640; 94660; 94760; 96374; 97163; 99285; A9500; J1650; J2785; J2920; J2930; J7512; J7605; Q9967

== ENCOUNTER 2018-05-24 10:21 | Emergency (ER) | payer OTHER ==
--- NOTE | 2018-05-24 10:59 | RAD REPORT ---
EXAM DESCRIPTION: CT - [id number] - 05/24/2018 10:45 am CLINICAL HISTORY: Fall, head and neck injury, altered mental status COMPARISON: None. TECHNIQUE: Axial 5 mm thick images of the head were obtained. Axial 2 mm thick images of the cervic al spine were obtained with sagittal and coronal reconstruction images generated and reviewed. All CT scans are performed using dose optimization technique as appropriate and may include automated exposure control or mA/KV adjustment according to patient size. FINDINGS: No intracranial hemorrhage, mass, edema or acute intracranial finding. No suspicion for acute infarct ion. No extra-axial fluid collections. Mastoid air cells and paranasal sinuses are clear. No globe or orbit abnormality seen. Cervical body height and alignment are normal. No disk space narrowing. No fracture or acute bony abn ormality. Moderate degenerative change at the dens anterior arch C1 level. No paraspinal mass or hematoma. IMPRESSION: Negative CT head examination for acute or significant finding. Negative CT cervical spine examination for acute or significant finding.
[2018-05-24] MEDS ORDERED: MULTIVITAMINS 10 ML VIAL (INJ) IV ONE (11:02)
[2018-05-24] MEDS ORDERED: FOLIC ACID 5 MG/ML VIAL ONE (11:02)
[2018-05-24] MEDS ORDERED: NA CHLORIDE 0.9% 100 ML IV ONE (11:02)
[2018-05-24] MEDS ORDERED: THIAMINE 200 MG/2 ML INJ ONE (11:02)
[2018-05-24 11:09] LABS: Absolute Lymphocytes (CBC) 2.5 K/uL (0.7-4.9); Absolute Monocytes 0.4 K/uL (0.1-1.3); Absolute Neutrophil 2.1 K/uL (1.8-8.0); Basophils % 1.5 % (0-1.3); Eosinophils % 3.1 % (0-4.4); Hematocrit 40.7 % (36.0-45.0); Lymphocytes % 47.3 % (15.3-44.8); MCH 28.9 pg (27.0-35.0); MCV 84.2 fL (80-100); MPV 7.9 fL (7.6-11.3); Monocytes % 7.1 % (3.3-12.3); RBC Red Blood Cell Count 4.83 M/uL (3.86-4.86)
[2018-05-24 11:15] LABS: Protime INR 0.94
[2018-05-24 11:28] LABS: BUN Blood Urea Nitrogen 10 mg/dL (7-18); Bicarbonate 31 mmol/L (21-32); CKMB Creatine Kinase MB 7.3 ng/mL (0.3-3.6); Creatine Phosphokinase 116 U/L (26-192); Glucose Level 92 mg/dL (74-106); Magnesium 2.2 mg/dL (1.8-2.4); Potassium 4.5 mmol/L (3.5-5.1); Sodium Level 140 mmol/L (136-145); Troponin (Emerg Dept Use Only) < 0.02 ng/mL (0.0-0.045)
[2018-05-24] MEDS ORDERED: ASPIRIN 81 MG CHEWABLE TABLET ONE (14:06)
[2018-05-24] MEDS ORDERED: NA CHLORIDE 0.9% 1,000 ML ONE (14:06)
[2018-05-24] MEDS ORDERED: LEVALBUTEROL 1.25 MG/3 ML NEB ONE (14:18)
--- NOTE | 2018-05-24 15:08 | EDPHYS ---
Physician Documentation [facility] Name: Ansley Henderson Age: 57 yrs Sex: Female : 1960 Arrival Date: 05/24/2018 Time: 10:22 Bed 7 Private MD: ED Physician Jose Mcmahon HPI: 05/24 10:29 This 57 yrs old Female presents to ER via Unassigned with complaints of Fall rn Injury. 10:29 Details of fall: The patient fell from an upright position. Onset: The symptoms/episode rn began/occurred this morning. Associated injuries: The patient sustained injury to the head. Severity of symptoms: At their worst the symptoms were mild, in the emergency department the symptoms are unchanged. It is unknown whether or not the patient has had similar symptoms in the past. Reports drinking heavily last night, woke up today outside, thinks tripped over brick and fell, reports thinks hit head on pole, when woke up noticed her speech was stuttering and left sided weakness. Has had stroke before, takes baby aspirin, and denies residual deficits from before. . Historical: - Allergies: 10:46 No Known Allergies; hb - Home Meds: 10:46 albuterol sulfate 90 mcg/actuation Inhl HFAA 1 puff every 4 hours [Active]; aspirin 81 hb mg Oral TbEC 1 tab once daily [Active]; lisinopril 20 mg Oral tab 1 tab once daily [Active]; prednisone 10 mg Oral tab 1 tab 2 times per day [Active]; Spiriva with HandiHaler 18 mcg inhalation CpDv 1 cap once daily [Active]; - PMHx: 10:46 COPD; CVA; HEART STENT; CAD; Hypertension; hb - PSHx: 10:46 ; hb - Immunization history:: Adult Immunizations up to date. - Family history:: not pertinent. - Social history:: Smoking status: Patient/guardian denies using tobacco. - Ebola Screening: : No symptoms or risks identified at this time. - Hospitalizations: : No recent hospitalization is reported. ROS: 10:29 Constitutional: Negative for fever, chills, and weight loss, Eyes: Negative for injury, rn pain, redness, and discharge, Neck: Negative for injury, pain, and swelling, Cardiovascular: Negative for chest pain, palpitations, and edema, Respiratory: Negative for shortness of breath, cough, wheezing, and pleuritic chest pain, Abdomen/GI: Negative for abdominal pain, nausea, vomiting, diarrhea, and constipation, MS/Extremity: Negative for injury and deformity, Skin: Negative for injury, rash, and discoloration, Neuro: + headache and weakness, + stuttering speech Exam: 10:29 Constitutional: This is a well developed, well nourished patient who is awake, alert, rn and in no acute distress. Head/Face: Normocephalic, atraumatic. Eyes: Pupils equal round and reactive to light, extra-ocular motions intact. Lids and lashes normal. Conjunctiva and sclera are non-icteric and not injected. Cornea within normal limits. Periorbital areas with no swelling, redness, or edema. Neck: Trachea midline, no thyromegaly or masses palpated, and no cervical lymphadenopathy. Supple, full range of motion without nuchal rigidity, or vertebral point tenderness. No Meningismus. Chest/axilla: Normal chest wall appearance and motion. Nontender with no deformity. No lesions are appreciated. Cardiovascular: Regular rate and rhythm with a normal S1 and S2. No gallops, murmurs, or rubs. Normal PMI, no JVD. No pulse deficits. Respiratory: mild tachypnea with bilateral wheezing Abdomen/GI: Soft, non-tender, with normal bowel sounds. No distension or tympany. No guarding or rebound. No evidence of tenderness throughout. MS/ Extremity: Pulses equal, no cyanosis. Neurovascular intact. Full, normal range of motion. Equal circumference. Neuro: Awake and alert, GCS 15, oriented to person, place, time, and situation. Cranial nerves II-XII grossly intact. Motor strength 4/5 LUE/LLE, 5/5 RUE/RLE. Sensory grossly intact. Cerebellar exam normal. + stuttering speech but not slurred and perfectly comprehensible Vital Signs: 10:23 BP 110 / 67; Pulse 75; Resp 19; Temp 98.2; Pulse Ox 95% on R/A; hb 11:20 BP 124 / 71; Pulse 71; Resp 17; Pulse Ox 96% on 3 lpm NC; hb 12:26 BP 97 / 68; Pulse 64; Resp 16; Pulse Ox 96% on 3 lpm NC; hb 13:00 BP 126 / 72; Pulse 65; Resp 19; Pulse Ox 96% on 3 lpm NC; hb 14:19 BP 138 / 73; Pulse 66; Resp 18; Pulse Ox 96% 3 lpm ; hb NIH Stroke Scale Scores: 10:46 NIHSS Score: 3 hb MDM: 10:23 Patient medically screened. rn 10:38 ED course: Last known normal last night, trauma involved, no TPA indicated given rn outside of window, still seems intoxicated, and head injury with syncope.. 15:06 Differential diagnosis: closed head injury, CVA, TIA, metabolic disorder. Data rn reviewed: vital signs, nurses notes, lab test result(s), EKG, radiologic studies, and as a result, I will admit patient. Counseling: I had a detailed discussion with the patient and/or guardian regarding: the historical points, exam findings, and any diagnostic results supporting the discharge/admit diagnosis, lab results, radiology results, the need to transfer to another facility, for higher level of care, [facility] does not immediately have the required specialist. Response to treatment: the patient's symptoms have mildly improved after treatment. Admission orders: after a detailed discussion of the patient's condition and case, the admit orders are written by me. ED course: Accepted for transfer to [facility] for neuro consult, still has left sided weakness even after clinically sober.. 05/24 10:23 Order name: glucometer results - FOR PT WITH NO ID; Complete Time: 13:35 ss 05/24 10:24 Order name: Basic Metabolic Panel; Complete Time: 12:23 rn 05/24 10:24 Order name: CBC with Diff; Complete Time: 11: rn 05/24 10:24 Order name: Ckmb; Complete Time: 12:23 rn 05/24 10:24 Order name: CPK; Complete Time: 12:23 rn 05/24 10:24 Order name: Magnesium; Complete Time: 12:23 rn 05/24 10:24 Order name: CT Head C Spine; Complete Time: 11:00 rn 05/24 10:24 Order name: Protime (+inr); Complete Time: 11:23 rn 05/24 10:24 Order name: Ptt, Activated; Complete Time: 11:23 rn 05/24 10:24 Order name: Troponin (emerg Dept Use Only); Complete Time: 12:23 rn 05/24 10:24 Order name: ETOH Level; Complete Time: 11:23 rn 05/24 16:06 Order name: Urine Dipstick--Ancillary (enter results) bd 05/24 10:24 Order name: EKG; Complete Time: 10:25 rn 05/24 10:24 Order name: Cardiac monitoring; Complete Time: 12:25 rn 05/24 10:24 Order name: EKG - Nurse/Tech; Complete Time: 12:25 rn 05/24 10:24 Order name: IV Saline Lock; Complete Time: 12:25 rn 05/24 10:24 Order name: Labs collected and sent; Complete Time: 12:25 rn 05/24 10:24 Order name: NPO; Complete Time: 12:25 rn 05/24 10:24 Order name: O2 Per Protocol; Complete Time: 12: rn 05/24 10:24 Order name: O2 Sat Monitoring; Complete Time: 12:25 rn Administered Medications: 10:55 Drug: Banana Bag - (NS 0.9% 1000 ml, foLIC Acid 1 mg, Thiamine 100 mg, Multivitamin 1 hb amp) Route: IV; Rate: calculated rate; Site: right antecubital; 12:16 Follow up: Response: No adverse reaction; IV Status: Completed infusion hb 14:07 Drug: Aspirin Chewable Tablet 324 mg Route: PO; hb 15:13 Follow up: Response: No adverse reaction hb 14:07 Drug: NS 0.9% 1000 ml Route: IV; Rate: 1000 ml; Site: right antecubital; hb 14:18 Drug: Xopenex 1.25 mg Route: Inhalation; hb 14:50 Follow up: Response: No adverse reaction hb 15:12 Drug: morphine 4 mg Route: IVP; Site: right antecubital; hb Point of Care Testing: Blood Glucose: 10:23 Blood Glucose: 89 mg/dL; ss Ranges: Critical Glucose Levels:Adult <50 mg/dl or >400 mg/dl <40 mg/dl or >180 mg/dl Disposition: 05/24/18 15:07 Transfer ordered to [facility]. Diagnosis are Weakness, Syncope and collapse, Chronic obstructive pulmonary disease, unspecified. - Reason for transfer: Higher level of care. - Accepting physician is Dr. Rodriguez. - Condition is Stable. - Problem is new. - Symptoms have improved. NIH Stroke Scale - NIH Stroke Score Date: 05/24/2018 Time: 10:46 Total Score = 3 1a. Level of Consciousness (LOC) - 0(Alert) 1b. Level of Consciousness (LOC) (Year \T\ Age) - 0(Both) 1c. LOC Commands (Open \T\ Closes Eyes/Chef & Owner) - 0(Both) 2. Best Gaze (Lateral Gaze Paresis) - 0(Normal) 3. Visual Field Loss - 0(No visual loss) 4. Facial Palsy - 0(Normal) 5a. Left Arm: Motor (10-second hold) - 1(Drift) 5b. Right Arm: Motor (10-second hold) - 0(No drift) 6a. Left Leg: Motor (5-second hold - always test supine) - 1(Drift) 6b. Right Leg: Motor (5-second hold - always test supine) - 0(No drift) 7. Limb Ataxia (finger/nose \T\ heel/cueto - test with eyes open) - 0(Absent) 8. Sensory Loss (pinprick arms/legs/face) - 0(Normal) 9. Best Language: Aphasia (description/naming/reading) - 0(No aphasia) 10. Dysarthria (speech clarity - read or repeat words) - 1(Mild to Moderate) 11. Extinction and Inattention (visual/tactile/auditory/spatial/personal) - 0(No abnormality) Initials: hb Signatures: Dispatcher [employer] EDMS Jose Mcmahon MD MD rn Smirch, Shelby, RN RN Annika Rivers RN RN hb Corrections: (The following items were deleted from the chart) 16:37 15:07 05/24/2018 15:07 Transfer ordered to [facility]. Diagnosis is Weakness; Syncope and collapse; Chronic obstructive pulmonary disease, unspecified. Reason for transfer: Higher level of care. Accepting physician is Dr. Rodriguez. Condition is Stable. Problem is new. Symptoms have improved. rn
--- NOTE | 2018-05-24 15:08 | ER ---
Nurse's Notes [facility] Name: Ansley Henderson Age: 57 yrs Sex: Female : 1960 Arrival Date: 05/24/2018 Time: 10:22 Bed 7 Private MD: Diagnosis: Weakness;Syncope and collapse;Chronic obstructive pulmonary disease, unspecified Presentation: 05/24 10:23 Presenting complaint: EMS states: Left sided weakness and stuttering after fall from standing this morning. Pt reported drinking a bottle of wine and 3 beers followed by "some whiskey" last night, woke this morning with generalized weakness, worse on left side, then fell outside of her house this morning. Unknown LOC. Last known normal was yesterday evening. No injuries noted. Smells of ETOH. GCS 15. VS WNL. Transition of care: patient was not received from another setting of care. Onset of symptoms was May 24, 2018. Risk Assessment: Do you want to hurt yourself or someone else? Patient reports no desire to harm self or others. Care prior to arrival: None. 10:23 Method Of Arrival: EMS: [facility] 10:23 Acuity: ENMANUEL 3 hb Triage Assessment: 10:24 General: Appears in no apparent distress. Behavior is calm, cooperative, Smells of alcohol. Pain: Denies pain. EENT: No signs and/or symptoms were reported regarding the EENT system. Neuro: Level of Consciousness is awake, alert, obeys commands, Oriented to person, place, time, situation, Nurse Special are weak on left Weakness in left leg(s) Speech stuttering. Facial symmetry appears normal, Pupils are PERRLA, Intact. Cardiovascular: Heart tones S1 S2 present Capillary refill < 3 seconds Patient's skin is warm and dry. Respiratory: Airway is patent Trachea midline Respiratory effort is even, unlabored, Respiratory pattern is regular, symmetrical, Breath sounds are clear bilaterally. GI: No signs and/or symptoms were reported involving the gastrointestinal system. : No signs and/or symptoms were reported regarding the genitourinary system. Derm: No signs and/or symptoms reported regarding the dermatologic system. Skin is intact, is healthy with good turgor. Musculoskeletal: No signs and/or symptoms reported regarding the musculoskeletal system. Historical: - Allergies: 10:46 No Known Allergies; hb - Home Meds: 10:46 albuterol sulfate 90 mcg/actuation Inhl HFAA 1 puff every 4 hours [Active]; aspirin 81 hb mg Oral TbEC 1 tab once daily [Active]; lisinopril 20 mg Oral tab 1 tab once daily [Active]; prednisone 10 mg Oral tab 1 tab 2 times per day [Active]; Spiriva with HandiHaler 18 mcg inhalation CpDv 1 cap once daily [Active]; - PMHx: 10:46 COPD; CVA; HEART STENT; CAD; Hypertension; hb - PSHx: 10:46 ; hb - Immunization history:: Adult Immunizations up to date. - Family history:: not pertinent. - Social history:: Smoking status: Patient/guardian denies using tobacco. - Ebola Screening: : No symptoms or risks identified at this time. - Hospitalizations: : No recent hospitalization is reported. Screenin:39 Abuse screen: Denies threats or abuse. Denies injuries from another. Nutritional hb screening: No deficits noted. Tuberculosis screening: No symptoms or risk factors identified. Fall Risk Total Lazar Fall Scale indicates Low Risk Score (25-44 pts). Fall prevention measures have been instituted. Side Rails Up X 2 Frequent Obs/Assesments occuring As available Patient and Family Educated on Fall Prevention Program and strategies. Assessment: 10:31 Reassessment: PT transported to CT via stretcher with tech. hb 10:40 Reassessment: Pt returned from CT. hb 11:00 Reassessment: Patient appears in no apparent distress at this time. No changes from hb previously documented assessment. Patient and/or family updated on plan of care and expected duration. Pain level reassessed. Patient is alert, oriented x 3, equal unlabored respirations, skin warm/dry/pink. 12:00 Reassessment: Patient appears in no apparent distress at this time. Patient and/or hb family updated on plan of care and expected duration. Pain level reassessed. Patient is alert, oriented x 3, equal unlabored respirations, skin warm/dry/pink. 13:00 Reassessment: Patient appears in no apparent distress at this time. No changes from hb previously documented assessment. Patient and/or family updated on plan of care and expected duration. Pain level reassessed. Patient is alert, oriented x 3, equal unlabored respirations, skin warm/dry/pink. 14:00 Reassessment: Patient appears in no apparent distress at this time. No changes from hb previously documented assessment. Patient and/or family updated on plan of care and expected duration. Pain level reassessed. Patient is alert, oriented x 3, equal unlabored respirations, skin warm/dry/pink. 14:54 Reassessment: Pt reports substernal chest pain 6/10, described as squeezing. Repeat EKG hb performed and Dr. Mcmahon notified. 15:32 Reassessment: Report called to Stefani ZIMMER at [facility]. hb 15:45 Reassessment: Patient appears in no apparent distress at this time. Patient and/or hb family updated on plan of care and expected duration. Pain level reassessed. Patient is alert, oriented x 3, equal unlabored respirations, skin warm/dry/pink. Vital Signs: 10:23 BP 110 / 67; Pulse 75; Resp 19; Temp 98.2; Pulse Ox 95% on R/A; hb 11:20 BP 124 / 71; Pulse 71; Resp 17; Pulse Ox 96% on 3 lpm NC; hb 12:26 BP 97 / 68; Pulse 64; Resp 16; Pulse Ox 96% on 3 lpm NC; hb 13:00 BP 126 / 72; Pulse 65; Resp 19; Pulse Ox 96% on 3 lpm NC; hb 14:19 BP 138 / 73; Pulse 66; Resp 18; Pulse Ox 96% 3 lpm ; hb NIH Stroke Scale Scores: 10:46 NIHSS Score: 3 hb ED Course: 10:22 Patient arrived in ED. ss 10:23 Jose Mcmahon MD is Attending Physician. rn 10:37 Triage completed. hb 10:37 Arm band placed on left wrist. hb 10:45 CT completed. Patient tolerated procedure well. Patient moved back from CT. bq 10:45 CT Head C Spine In Process Unspecified. EDMS 10:50 Inserted saline lock: 20 gauge in right antecubital area, using aseptic technique. hb Blood collected. 12:15 Annika Rivers, RN is Primary Nurse. hb Administered Medications: 10:55 Drug: Banana Bag - (NS 0.9% 1000 ml, foLIC Acid 1 mg, Thiamine 100 mg, Multivitamin 1 hb amp) Route: IV; Rate: calculated rate; Site: right antecubital; 12:16 Follow up: Response: No adverse reaction; IV Status: Completed infusion hb 14:07 Drug: Aspirin Chewable Tablet 324 mg Route: PO; hb 15:13 Follow up: Response: No adverse reaction hb 14:07 Drug: NS 0.9% 1000 ml Route: IV; Rate: 1000 ml; Site: right antecubital; hb 14:18 Drug: Xopenex 1.25 mg Route: Inhalation; hb 14:50 Follow up: Response: No adverse reaction hb 15:12 Drug: morphine 4 mg Route: IVP; Site: right antecubital; hb Point of Care Testing: Blood Glucose: 10:23 Blood Glucose: 89 mg/dL; Ranges: Outcome: 15:07 ER care complete, transfer ordered by . rn 16:37 Patient left the ED. NIH Stroke Scale - NIH Stroke Score Date: 05/24/2018 Time: 10:46 Total Score = 3 1a. Level of Consciousness (LOC) - 0(Alert) 1b. Level of Consciousness (LOC) (Year \\T\\ Age) - 0(Both) 1c. LOC Commands (Open \\T\\ Closes Eyes/Manager Commission) - 0(Both) 2. Best Gaze (Lateral Gaze Paresis) - 0(Normal) 3. Visual Field Loss - 0(No visual loss) 4. Facial Palsy - 0(Normal) 5a. Left Arm: Motor (10-second hold) - 1(Drift) 5b. Right Arm: Motor (10-second hold) - 0(No drift) 6a. Left Leg: Motor (5-second hold - always test supine) - 1(Drift) 6b. Right Leg: Motor (5-second hold - always test supine) - 0(No drift) 7. Limb Ataxia (finger/nose \\T\\ heel/cueto - test with eyes open) - 0(Absent) 8. Sensory Loss (pinprick arms/legs/face) - 0(Normal) 9. Best Language: Aphasia (description/naming/reading) - 0(No aphasia) 10. Dysarthria (speech clarity - read or repeat words) - 1(Mild to Moderate) 11. Extinction and Inattention (visual/tactile/auditory/spatial/personal) - 0(No abnormality) Initials: hb Signatures: Dispatcher [employer] EDMS Quilty, Nicole bq Mcmahon, Jose, MD MD rn Smirch, Zenaida, RN RN ss Rivers, Annika, RN RN hb Corrections: (The following items were deleted from the chart) 10:39 10:23 Pulse 75bpm; Resp 19bpm; Pulse Ox 95% RA; hb hb 10:47 10:28 NIHSS Score: 3 hb hb
[2018-05-24] MEDS ORDERED: MORPHINE 4 MG/ML SYR ONE (15:15)
[2018-05-24 16:13] LABS: Urine Blood NEGATIVE (NEG); Urine Glucose NEGATIVE (NEG); Urine Protein NEGATIVE (NEG); Urine Specific Gravity <1.005 (1.005-1.030); Urine pH 5.5 (5.0-7.0)
[2018-05-24 16:46] VITALS: TEMP 98.2
[2018-05-24 16:47] VITALS: O2SAT 96
[2018-05-24 16:51] VITALS: BP 138/73
--- NOTE | 2018-05-25 07:03 | EKG ---
Test Date: 2018-05-24 Test Time: 14:53:29 Weatherization Technician: YOLI MEASUREMENT RESULTS: Intervals: Rate: 85 NC: 150 QRSD: 74 QT: 390 QTc: 464 [place]: P: 78 NC: 150 QRS: 76 T: 71 INTERPRETIVE STATEMENTS: Normal sinus rhythm Normal ECG Compared to ECG 12/21/2017 10:09:11 No significant changes Electronically Signed On 05-25-18 07:01:13 CDT by Yosvany Vizcarra
== END 2018-05-24 16:37 | disposition short-term general hospital (02) ==
LOC: ER 10:21
DX: R55 Syncope and collapse (principal); J44.9 Chronic obstructive pulmonary disease, unspecified; R53.1 Weakness; F10.129 Alcohol abuse with intoxication, unspecified; R29.703 NIHSS score 3; I10 Essential (primary) hypertension; I25.10 Atherosclerotic heart disease of native coronary artery without angina pectoris; Z79.82 Long term (current) use of aspirin; Z79.52 Long term (current) use of systemic steroids; Z95.5 Presence of coronary angioplasty implant and graft; Z86.73 Personal history of transient ischemic attack (TIA), and cerebral infarction without residual deficits
CPT/HCPCS: 36415; 70450; 72125; 80048; 80320; 81003; 82550; 82553; 82962; 83735; 84484; 85025; 85610; 85730; 93005; 96365; 96375; 99285; J3411; J7030

== ENCOUNTER 2018-07-30 23:17 | Inpatient (IN) | payer OTHER ==
--- OUTSIDE RECORDS SUMMARY | 2018-07-30 23:20 | XMS REPORT ---
:1960 [facility] [address] [place] [address] Care Team Providers Name Role Phone JESE MABRYCecilia Unavailable Unavailable Problems This patient has no known problems. Allergies, Adverse Reactions, Alerts This patient has no known allergies or adverse reactions. Medications This patient has no known medications. Results Test Description Test Time Test Comments Text Results Atomic Results Result Comments [facility], [facility], 2018-05-26 16:02:00 FINAL REPORT PHARM, SPECT PROCEDURE: Rest/Stress MYOCARDIAL PERFUSION SPECT with regadenoson\XA9\ CPT CODE: 83117 INDICATION: Chest pain HISTORY: Cardiac risk factors: Hypertension, family history of early CAD. Other cardiovascular history: No reported CAD. Recent cardiac symptoms: Chest pain. PROTOCOL: 10.5 mCi of Tc-99m sestamibi was injected iv at rest, and SPECT (tomographic) images were obtained. Also, 32.4 mCi of Tc-99m sestamibi was injected iv at expected peak pharmacologic effect, and gated SPECT images were obtained. PRELIMINARY STRESS TEST DATA FROM NONINVASIVE CARDIOLOGY: Pharmacologic stress was by 10-second iv infusion of 0.4 mg of regadenoson. Radiotracer was injected 30 seconds after start of stress. Heart rate was 62 beats/min at rest and 83 beats/min (51 % of MPHR) at tracer injection. BP was 166/88 mmHg at rest and 170/88 mmHg at tracer injection. Stress was stopped for predetermined endpoint. The patient experienced dyspnea; treatment was not required. Preliminary ECG evaluation revealed sinus rhythm at rest and no ischemic changes with stress. (Final ECG interpretation and other stress and monitoring data are reported separately by Cardiology.) IMAGING FINDINGS: Study quality is good. Images obtained after rest and stress injections show normal LV activity. LV and RV volumes appear normal. Gated images obtained at rest after stress show normal LV wall motion and thickening. QGS LVEF is 68%. IMPRESSION: 1. Normal study. 2. Appropriate pharmacologic stress. 3. Normal myocardial perfusion. 4. Normal resting LV function. 5. Normal extracardiac tracer distribution. There is flattening of the diaphragms in the unprocessed images consistent with hyperinflation of the lung due to COPD. 6. No previous [facility] study for comparison. NONINVASIVE RISK STRATIFICATION: The above findings are considered low risk (<1% annual mortality rate) based on the following criterion:- Normal or small myocardial perfusion defect at rest or with stress(JACC. 2012;59(9):857-81.) Signed: Facundo Carpenter MDReport Verified Date/Time: 05/26/2018 16:02:19 Reading Location: [address] Reading Room C METABOLIC PANEL 2018-05-26 04:33:00 Test Item Value Reference Range Comments SODIUM (BEAKER) (test 135 meq/L 136-145 nuzn=365) POTASSIUM (BEAKER) (test 4.4 meq/L 3.5-5.1 anvx=489) CHLORIDE (BEAKER) (test 102 meq/L 98-107 dfhk=807) CO2 (BEAKER) (test nljg=842) 24 meq/L 22-29 BLOOD UREA NITROGEN (BEAKER) 11 mg/dL 7-21 (test njcv=240) CREATININE (BEAKER) (test 0.68 mg/dL 0.57-1.25 uqxa=060) GLUCOSE RANDOM (BEAKER) 96 mg/dL 70-105 (test tfdh=684) CALCIUM (BEAKER) (test 9.1 mg/dL 8.4-10.2 dzip=243) EGFR (BEAKER) (test 89 mL/min/1.73 sq m ESTIMATED GFR IS NOT kdxy=9539) ACCURATE CREATININE CLEARANCE IN PREDICTING GLOMERULAR FILTRATION RATE. ESTIMATED GFR IS NOT APPLICABLE FOR DIALYSIS PATIENTS. CBC (HEMOGRAM ONLY)2018-05-26 04:24:00 Test Item Value Reference Range Comments WHITE BLOOD CELL COUNT (BEAKER) (test gius=515) 6.3 K/ L 3.5-10.5 RED BLOOD CELL COUNT (BEAKER) (test rgsi=789) 4.07 M/ L 3.93-5.22 HEMOGLOBIN (BEAKER) (test exsj=439) 11.1 GM/DL 11.2-15.7 HEMATOCRIT (BEAKER) (test qehz=971) 35.9 % 34.1-44.9 MEAN CORPUSCULAR VOLUME (BEAKER) (test ghkx=373) 88.2 fL 79.4-94.8 MEAN CORPUSCULAR HEMOGLOBIN (BEAKER) (test 27.3 pg 25.6-32.2 isay=487) MEAN CORPUSCULAR HEMOGLOBIN CONC (BEAKER) (test 30.9 GM/DL 32.2-35.5 uhcw=289) RED CELL DISTRIBUTION WIDTH (BEAKER) (test 14.1 % 11.7-14.4 bfiu=937) PLATELET COUNT (BEAKER) (test ravu=254) 210 K/CU MM 150-450 MEAN PLATELET VOLUME (BEAKER) (test upxp=563) 9.9 fL 9.4-12.3 NUCLEATED RED BLOOD CELLS (BEAKER) (test 0 /100 WBC 0-0 ktzc=695) MR, MRA, BRAIN, WITHOUT [id number] 22:00:00Reason for exam:-> Ischemic Stroke EvaluationFINAL REPORT MR, BRAIN, WITHOUT CONTRAST, MR, MRA, NECK, WITHOUT IV CONTRAST,MR, MRA, BRAIN, WITHOUT CONTRAST INDICATION: StrokeIschemic Stroke Evaluation TECHNIQUE: Multiplanar, multisequence MR images of the brain. 3-D time of flight MRA of the cranial and cervical circulation. 2-D time of flight MRA of the neck. 3D MIP angiographic post-processing was performed. Stenosis evaluation utilized NASCET criteria. COMPARISON: Noncontrast brain CT of the same date FINDINGS: MRI BRAIN : Cerebral parenchyma: Unremarkable.Midline structures: Normally positioned.Cerebellum and brainstem: Normal.Ventricles: Normal volume.Extra- axial spaces: Unremarkable. Calvarium and skull base: Normal signal.Paranasal sinuses and mastoid air cells: Visible chambers are clear.Orbital contents: No acute abnormality. Additional findings: None. MRA BRAIN:Internal carotid arteries: Patent. Middle cerebral arteries: Patent to distal branches.Anterior cerebral arteries: Intact.Basilar system: Patent vertebrobasilar system.Posterior cerebral arteries:Patent beyond the quadrigeminal segments.Additionalfindings: None. MRA NECK:Common carotid arteries: Unremarkable. Bifurcations: No flow-limiting stenosis. Cervical internal carotid arteries: No flow limiting stenosis.Vertebral arteries: Codominant. Noorigin or extracranial stenosis. IMPRESSION: No acute ischemia or parenchymal hemorrhage. No flow limiting stenosis in the major branch vessels of the cervical or cranial circulation. Signed: JR Keating Robert MDReport Verified Date/Time: 05/25/2018 22:00:39 Reading Location: [address] Body Reading Room MR, MRA, NECK, WITHOUT IV [id number] 22:00: 00Reason for exam:->Ischemic Stroke EvaluationFINAL REPORT MR, BRAIN, WITHOUT CONTRAST, MR, MRA, NECK, WITHOUT IV CONTRAST,MR, MRA , BRAIN, WITHOUT CONTRAST INDICATION: StrokeIschemic Stroke Evaluation TECHNIQUE : Multiplanar, multisequence MR images of the brain. 3-D time of flight MRA of the cranial and cervical circulation. 2-D time of flight MRA of the neck. 3D MIP angiographic post-processing was performed. Stenosis evaluation utilized NASCET criteria. COMPARISON: Noncontrast brain CT of the same date FINDINGS: MRI BRAIN: Cerebral parenchyma: Unremarkable.Midline structures: Normally positioned.Cerebellum and brainstem: Normal.Ventricles: Normal volume.Extra- axial spaces: Unremarkable. Calvarium and skull base: Normal signal.Paranasal sinuses and mastoid air cells: Visible chambers are clear.Orbital contents: No acute abnormality. Additional findings: None. MRA BRAIN:Internal carotid arteries: Patent. Middle cerebral arteries: Patent to distal branches.Anterior cerebral arteries: Intact.Basilar system: Patent vertebrobasilar system.Posterior cerebral arteries:Patent beyond the quadrigeminal segments.Additionalfindings: None. MRA NECK:Common carotid arteries: Unremarkable. Bifurcations: No flow-limiting stenosis. Cervical internal carotid arteries: No flow limiting stenosis.Vertebral arteries: Codominant. Noorigin or extracranial stenosis. IMPRESSION: No acute ischemia or parenchymal hemorrhage. No flow limiting stenosis in the major branch vessels of the cervical or cranial circulation. Signed: JR Keating Robert MDReport Verified Date/Time: 05/25/2018 22:00:39 Reading Location: [address] Body Reading Room MR, BRAIN, WITHOUT [id number] 22:00:00Reason for exam:->Ischemic Stroke EvaluationFINAL REPORT MR, BRAIN, WITHOUT CONTRAST, MR, MRA, NECK, WITHOUT IV CONTRAST,MR, MRA, BRAIN, WITHOUT CONTRAST INDICATION: StrokeIschemic Stroke Evaluation TECHNIQUE: Multiplanar, multisequence MR images of the brain. 3-D time of flight MRA of the cranial and cervical circulation. 2-D time of flight MRA of the neck. 3D MIP angiographic post-processing was performed. Stenosis evaluation utilized NASCET criteria. COMPARISON: Noncontrast brain CT of the same date FINDINGS: MRI BRAIN: Cerebral parenchyma: Unremarkable.Midline structures: Normally positioned.Cerebellum and brainstem: Normal.Ventricles: Normal volume.Extra- axial spaces: Unremarkable. Calvarium and skull base: Normal signal.Paranasal sinuses and mastoid air cells: Visible chambers are clear.Orbital contents: No acute abnormality. Additional findings: None. MRA BRAIN:Internal carotid arteries: Patent. Middle cerebral arteries: Patent to distal branches.Anterior cerebral arteries: Intact.Basilar system: Patent vertebrobasilar system.Posterior cerebral arteries:Patent beyond the quadrigeminal segments.Additionalfindings: None. MRA NECK:Common carotid arteries: Unremarkable. Bifurcations: No flow-limiting stenosis. Cervical internal carotid arteries: No flow limiting stenosis.Vertebral arteries: Codominant. Noorigin or extracranial stenosis. IMPRESSION: No acute ischemia or parenchymal hemorrhage. No flow limiting stenosis in the major branch vessels of the cervical or cranial circulation. Signed: JR Keating Robert MDReport Verified Date/Time: 05/25/2018 22:00:39 Reading Location: [facility] B1 C013Y CT Body Reading Room HEMOGLOBIN [id number] 09:45:00 Test Item Value Reference Range Comments HEMOGLOBIN A1C (BEAKER) (test tpwb=559) 5.4 % 4.3-6.1 LIPID [id number] 07:58:00 Test Item Value Reference Range Comments TRIGLYCERIDES (BEAKER) (test huvh=474) 190 mg/dL CHOLESTEROL (BEAKER) (test osrc=550) 170 mg/dL HDL CHOLESTEROL (BEAKER) (test hqon=620) 62 mg/dL LDL CHOLESTEROL CALCULATED (BEAKER) (test 70 mg/dL ppyn=614) Triglyceride Reference Range: Low Risk <150 Borderline 150- 199 High Risk 200-499 Very High Risk >=500Cholesterol Reference Range: Low Risk <200 Borderline 200-239 High Risk > 240HDL Cholesterol Reference Range: Low Risk >=60 High Risk <40LDL Cholesterol Reference Range: Optimal <100 Near Optimal 100-129 Borderline 130-159 High 160-189 Very High >=190TSH/FREE T4 IF [id number] 06:27:00 Test Item Value Reference Range Comments THYROID STIMULATING HORMONE (BEAKER) (test 4.27 uIU/mL 0.35-4.94 udna=361) CREATINE KINASE (CK), TOTAL AND [id number] 06:13:00 Test Item Value Reference Range Comments CREATINE KINASE TOTAL (BEAKER) (test eyww=961) 53 U/L 29-200 CREATINE KINASE-MB (BEAKER) (test eleb=883) 3.9 ng/mL 0.0-6.6 CREATINE KINASE-MB INDEX (BEAKER) (test hvcl=390) 7.4 % CK-MB Reference Range:<6.7 Normal6.7-10.0 Borderline>10.0 AbnormalTROPONIN [id number] 06:13:00 Test Item Value Reference Range Comments TROPONIN I (BEAKER) (test wxft=635) < ng/mL 0.00-0.03 Troponin I (TnI) levels must be interpreted in the context of the presenting symptoms and the clinical findings. Elevated TnI levels indicate myocardial damage, but are not specific for ischemic heart disease. Elevated TnI levels are seen in patients with other cardiac conditions (including myocarditis and congestive heart failure), and slight TnI elevations occur in patients with other conditions, including sepsis, renal failure, acidosis, acute neurological disease, and persistent tachyarrhythmia.CALCIUM, [id number] 06:13:00 Test Item Value Reference Range Comments CALCIUM IONIZED (BEAKER) (test uwbw=236) 1.17 mmol/L 1.12-1.27 PH, BLOOD (BEAKER) (test dfym=8230) 7.33 [id number] 06:05:00 Test Item Value Reference Range Comments PHOSPHORUS (BEAKER) (test qhsg=048) 4.1 mg/dL 2.3-4.7 [id number] 06:05:00 Test Item Value Reference Range Comments MAGNESIUM (BEAKER) (test coio=070) 2.0 mg/dL 1.6-2.6 CBC W/PLT COUNT & AUTO [id number] 05:44:00 Test Item Value Reference Range Comments WHITE BLOOD CELL COUNT (BEAKER) (test uqgb=368) 7.1 K/ L 3.5-10.5 RED BLOOD CELL COUNT (BEAKER) (test ogcy=480) 4.23 M/ L 3.93-5.22 HEMOGLOBIN (BEAKER) (test ubcv=244) 11.6 GM/DL 11.2-15.7 HEMATOCRIT (BEAKER) (test homs=462) 37.2 % 34.1-44.9 MEAN CORPUSCULAR VOLUME (BEAKER) (test xuup=555) 87.9 fL 79.4-94.8 MEAN CORPUSCULAR HEMOGLOBIN (BEAKER) (test 27.4 pg 25.6-32.2 yrrx=525) MEAN CORPUSCULAR HEMOGLOBIN CONC (BEAKER) (test 31.2 GM/DL 32.2-35.5 efkz=214) RED CELL DISTRIBUTION WIDTH (BEAKER) (test 14.4 % 11.7-14.4 ukaq=583) PLATELET COUNT (BEAKER) (test ognw=298) 215 K/CU MM 150-450 MEAN PLATELET VOLUME (BEAKER) (test zick=188) 10.0 fL 9.4-12.3 NUCLEATED RED BLOOD CELLS (BEAKER) (test 0 /100 WBC 0-0 wewh=459) NEUTROPHILS RELATIVE PERCENT (BEAKER) (test 54 % cfbs=376) LYMPHOCYTES RELATIVE PERCENT (BEAKER) (test 35 % weqq=085) MONOCYTES RELATIVE PERCENT (BEAKER) (test 8 % fyba=356) EOSINOPHILS RELATIVE PERCENT (BEAKER) (test 2 % tamb=977) BASOPHILS RELATIVE PERCENT (BEAKER) (test 1 % jost=825) NEUTROPHILS ABSOLUTE COUNT (BEAKER) (test 3.79 K/ L 1.56-6.13 xddw=400) LYMPHOCYTES ABSOLUTE COUNT (BEAKER) (test 2.50 K/ L 1.18-3.74 rypm=969) MONOCYTES ABSOLUTE COUNT (BEAKER) (test 0.57 K/ L 0.24-0.36 rtjd=440) EOSINOPHILS ABSOLUTE COUNT (BEAKER) (test 0.15 K/ L 0.04-0.36 gpkg=792) BASOPHILS ABSOLUTE COUNT (BEAKER) (test 0.04 K/ L 0.01-0.08 unsq=543) IMMATURE GRANULOCYTES-RELATIVE PERCENT (BEAKER) 0 % 0-1 (test sthh=4845) TROPONIN [id number] 01:50:00 Test Item Value Reference Range Comments TROPONIN I (BEAKER) (test uqsa=353) 0.02 ng/mL 0.00-0.03 Troponin I (TnI) levels must be interpreted in the context of the presenting symptoms and the clinical findings. Elevated TnI levels indicate myocardial damage, but are not specific for ischemic heart disease. Elevated TnI levels are seen in patients with other cardiac conditions (including myocarditis and congestive heart failure), and slight TnI elevations occur in patients with other conditions, including sepsis, renal failure, acidosis, acute neurological disease, and persistent tachyarrhythmia.BASIC METABOLIC [id number] 22:36:00 Test Item Value Reference Range Comments SODIUM (BEAKER) (test 137 meq/L 136-145 oequ=453) POTASSIUM (BEAKER) (test 4.9 meq/L 3.5-5.1 Specimen slightly auqo=525) hemolyzed CHLORIDE (BEAKER) (test 106 meq/L 98-107 uucl=045) CO2 (BEAKER) (test 22 meq/L 22-29 edow=770) BLOOD UREA NITROGEN 13 mg/dL 7-21 (BEAKER) (test jqws=692) CREATININE (BEAKER) (test 0.72 mg/dL 0.57-1.25 Specimen slightly fiyz=056) hemolyzed GLUCOSE RANDOM (BEAKER) 100 mg/dL 70-105 (test fptz=477) CALCIUM (BEAKER) (test 8.6 mg/dL 8.4-10.2 eihn=692) EGFR (BEAKER) (test 83 mL/min/1.73 sq m ESTIMATED GFR IS NOT kooj=7258) ACCURATE CREATININE CLEARANCE IN PREDICTING GLOMERULAR FILTRATION RATE. ESTIMATED GFR IS NOT APPLICABLE FOR DIALYSIS PATIENTS. CREATINE KINASE (CK), TOTAL AND [id number] 21:46:00 Test Item Value Reference Range Comments CREATINE KINASE TOTAL (BEAKER) (test wmvo=305) 82 U/L 29-200 CREATINE KINASE-MB (BEAKER) (test psbj=147) 6.0 ng/mL 0.0-6.6 CREATINE KINASE-MB INDEX (BEAKER) (test iqcy=166) 7.3 % CK-MB Reference Range:<6.7 Normal6.7-10.0 Borderline>10.0 AbnormalPT/[id number] 21:28:00 Test Item Value Reference Range Comments PROTIME (BEAKER) (test bmvr=027) 14.5 seconds 11.7-14.7 INR (BEAKER) (test claz=325) 1.1 <=5.9 PARTIAL THROMBOPLASTIN TIME (BEAKER) (test 29.0 seconds 22.5-36.0 eday=713) RECOMMENDED COUMADIN/WARFARIN INR THERAPY RANGESSTANDARD DOSE: 2.0 - 3.0 Includes: PROPHYLAXIS forvenous thrombosis, systemic embolization; TREATMENT for venous thrombosis and/or pulmonary embolus.HIGH RISK: Target INR is 2.5-3.5 for patients with mechanical heart valves.RAD, CHEST, 1 VIEW, NON [id number] 20:22:00Reason for exam:->SOBShould this be performed at the bedside?-> YesIs the patient ?->NoFINAL REPORT History: Shortness of breath. Comparison: None. Findings: A single view of the chest is submitted. The patient is rotated to the left. The cardiomediastinal contours are unremarkable. The lungs are hyperinflated. There is no focal consolidation , pneumothorax, large pleural effusion or evidence of overt pulmonary edema. There is no acute bony abnormality. Signed: Jose Mercado Verified Date /Time: 05/24/2018 20:22:32 Reading Location: [address] Reading Room
--- OUTSIDE RECORDS SUMMARY | 2018-07-30 23:20 | XMS REPORT | Clinical Summary ---
:1960 Author Organization [facility] Address [address] [place] [address] Care Team Providers Name Role Phone Unavailable Primary Care Provider Unavailable Allergies No Known Allergies Medications Medication Sig Dispensed Refills Start Date End Date Status aspirin 81 MG Take 81 mg by 0 Active chewable tablet mouth daily. tiotropium Inhale 18 mcg by 0 Active (SPIRIVA) 18 mcg mouth via inhaler inhalation capsule daily. omeprazole Take 20 mg by 0 Active (PRILOSEC) 20 MG mouth daily. capsule nitroglycerin Place 0.4 mg 0 Active (NITROSTAT) 0.4 MG under the tongue SL tablet every 5 (five) minutes as needed for Chest pain Put 1 pill under tongue every 5min as needed for chest pain.No more than 3 doses in 15min.Call 911 if pain is unrelieved 5min after 1st dose . ipratropium Take 500 mcg by 0 Active (ATROVENT) 0.02 % nebulization nebulizer solution every 4 (four) hours. isosorbide Take 1 tablet (30 30 tablet 0 05/27/2018 Active mononitrate mg total) by 9 (IMDUR) 30 MG 24 mouth daily. hr tablet metoprolol Take 1 tablet (25 60 tablet 0 05/26/2018 Active (LOPRESSOR) 25 MG mg total) by 9 tablet mouth 2 (two) times daily. senna-docusate Take 1 tablet by 30 tablet 0 05/26/2018 Active (SENOKOT S) 8.6-50 mouth 2 (two) 9 mg per tablet times daily. amLODIPine Take 1 tablet (5 30 tablet 0 05/28/2018 Active (NORVASC) 5 MG mg total) by 9 tablet mouth daily. losartan (COZAAR) Take 1 tablet (50 30 tablet 0 05/28/2018 Active 50 MG tablet mg total) by 9 mouth daily. ipratropium Take 2.5 mLs (0.5 220 mL 0 05/27/2018 Active (ATROVENT) 0.02 % mg total) by 9 nebulizer solution nebulization 3 (three) times daily. atorvastatin Take 1 tablet (80 30 tablet 0 05/27/2018 Active (LIPITOR) 80 MG mg total) by 9 tablet mouth nightly. atorvastatin Take 1 tablet (80 30 tablet 0 05/26/2018 Discontinued (LIPITOR) 80 MG mg total) by 8 tablet mouth nightly. losartan (COZAAR) Take 1 tablet 30 tablet 0 05/28/2018 Discontinued 100 MG tablet (100 mg total) by 8 mouth daily. Active Problems Problem Noted Date Chronic bronchitis, unspecified chronic bronchitis type 05/25/2018 COPD (chronic obstructive pulmonary disease) 05/24/2018 Hypertension 05/24/2018 Chronic alcohol abuse 05/24/2018 Left-sided weakness 05/24/2018 Stroke (cerebrum) 05/24/2018 Encounters Date Type Specialty Care Team Description 05/24/2018 - Hospital Encounter General Internal Laurent Malagon Chronic bronchitis, unspecified chronic bronchitis type (HCC); 05/27/2018 Kulwinder Hill MD Essential hypertension; Juliocesar, Left-sided weakness; MD Zane Chronic alcohol abuse Verito Bhagat after 07/29/2017 Social History Tobacco Use Types Packs/Day Years Used Date Former Smoker Smokeless Tobacco: Never Used Alcohol Use Drinks/Week oz/Week Comments Yes 14 Glasses of wine 10.8 4 Cans of beer Sex Assigned at Date Recorded Not on file Job Start Date Occupation Industry Not on file Not on file Not on file Travel History Travel Start Travel End No recent travel history available. Last Filed Vital Signs Vital Sign Reading Time Taken Blood Pressure 138/63 05/27/2018 11:30 AM CDT Pulse 78 05/27/2018 12:32 PM CDT Temperature 36.4 C (97.5 F) 05/27/2018 11:30 AM CDT Respiratory Rate 18 05/27/2018 12:32 PM CDT Oxygen Saturation 95% 05/27/2018 12:32 PM CDT Inhaled Oxygen Concentration 28% 05/24/2018 9:09 PM CDT Weight 65.8 kg (145 lb) 05/24/2018 7:02 PM CDT Height 154.9 cm (5' 1") 05/24/2018 7:02 PM CDT Body Mass Index 27.4 05/24/2018 7:02 PM CDT Plan of Treatment Not on file Procedures Procedure Name Priority Date/Time Associated Comments Diagnosis RHYTHM STRIP - SCAN 05/28/2018 2:51 PM CDT NM MYOCARDIAL PERFUSION Routine 05/26/2018 3:46 Results for this SPECT, PHARM(LEXISCAN) PM CDT procedure are in the results section. TREADMILL Routine 05/26/2018 11:06 Results for this TOLERANCE(NON-NUCLEAR AM CDT procedure are in TREADMILL) the results section. BASIC METABOLIC PANEL Routine 05/26/2018 4:08 Results for this (7) AM CDT procedure are in the results section. CBC (HEMOGRAM ONLY) Routine 05/26/2018 4:08 Results for this AM CDT procedure are in the results section. MR BRAIN WITHOUT IV Routine 05/25/2018 9:50 Results for this CONTRAST PM CDT procedure are in the results section. MR MRA NECK WITHOUT IV Routine 05/25/2018 9:50 Results for this CONTRAST PM CDT procedure are in the results section. MR MRA HEAD WITHOUT Routine 05/25/2018 9:50 Results for this CONTRAST PM CDT procedure are in the results section. ECHOCARDIOGRAM REPORT - 05/25/2018 5:50 SCAN PM CDT 2D ECHO W/ DOPPLER Routine 05/25/2018 2:21 Results for this (CW/PW/COLOR) PM CDT procedure are in the results section. CBC W/PLT COUNT & AUTO Routine 05/25/2018 4:51 Results for this DIFFERENTIAL AM CDT procedure are in the results section. LIPID PANEL Add-On 05/25/2018 4:51 Results for this AM CDT procedure are in the results section. TROPONIN I Routine 05/25/2018 4:51 Results for this AM CDT procedure are in the results section. TSH/FREE T4 IF Routine 05/25/2018 4:51 Results for this INDICATED AM CDT procedure are in the results section. HEMOGLOBIN A1C Routine 05/25/2018 4:51 Results for this AM CDT procedure are in the results section. MAGNESIUM Routine 05/25/2018 4:51 Results for this AM CDT procedure are in the results section. CBC W/PLT COUNT & AUTO Routine 05/25/2018 4:51 Results for this DIFFERENTIAL AM CDT procedure are in the results section. PHOSPHORUS Routine 05/25/2018 4:51 Results for this AM CDT procedure are in the results section. CALCIUM, IONIZED Routine 05/25/2018 4:51 Results for this AM CDT procedure are in the results section. CREATINE KINASE (CK), Routine 05/25/2018 4:51 Results for this TOTAL AND MB AM CDT procedure are in the results section. BASIC METABOLIC PANEL Routine 05/24/2018 8:59 Results for this (7) PM CDT procedure are in the results section. PT/APTT Routine 05/24/2018 8:59 Results for this PM CDT procedure are in the results section. TROPONIN I Routine 05/24/2018 8:59 Results for this PM CDT procedure are in the results section. CREATINE KINASE (CK), Routine 05/24/2018 8:59 Results for this TOTAL AND MB PM CDT procedure are in the results section. XR CHEST 1 VIEW Routine 05/24/2018 7:09 Results for this PORTABLE/BEDSIDE PM CDT procedure are in the results section. ECG 12-LEAD STAT 05/24/2018 6:43 Results for this PM CDT procedure are in the results section. after 07/29/2017 Results RHYTHM STRIP - SCAN (05/28/2018 2:51 PM CDT) Narrative Performed At NM myocardial perfusion SPECT,pharm(Lexiscan) (05/26/2018 3:46 PM CDT) Narrative Performed At FINAL REPORT [employer] PROCEDURE:Rest/Stress MYOCARDIAL PERFUSION SPECT with regadenoson\\XA9\\ CPT CODE:15053 INDICATION:Chest pain HISTORY:Cardiac risk factors: Hypertension, family history of early CAD. Other cardiovascular history: No reported CAD. Recent cardiac symptoms: Chest pain. PROTOCOL:10.5 mCi of Tc-99m sestamibi was injected iv [...] data are reported separately by Cardiology.) IMAGING FINDINGS:Study quality is good. Images obtained after rest and stress injections show normal LV activity. LV and RV volumes appear normal. Gated images obtained at rest after stress show normal LV wall motion and thickening. QGS LVEF is 68%. IMPRESSION: 1. Normal study.2. Appropriate pharmacologic stress. 3. Normal myocardial perfusion.4. Normal resting LV function.5. Normal extracardiac tracer distribution. There is flattening of the diaphragms in the unprocessed images consistent with hyperinflation of the lung due to COPD.6. No previous [facility] study for comparison. NONINVASIVE RISK STRATIFICATION: The above findings are considered low risk (<1% annual mortality rate) based on the following criterion: - Normal or small myocardial perfusion defect at rest or with stress (JACC. 2012;59(9):857-81.) Signed: Case Carpenter MD Report Verified Date/Time:05/26/2018 16:02:19 Reading Location: [address] Reading Room Procedure Note Interface, External Ris In - 05/26/2018 4:04 PM CDT FINAL REPORT PROCEDURE: Rest/Stress MYOCARDIAL PERFUSION SPECT with regadenoson\\XA9\\ CPT CODE: 40871 INDICATION: Chest pain HISTORY: Cardiac risk factors: [...] lung due to COPD. 6. No previous [facility] study for comparison. NONINVASIVE RISK STRATIFICATION: The above findings are considered low risk (<1% annual mortality rate) based on the following criterion: - Normal or small myocardial perfusion defect at rest or with stress (JACC. 2012;59(9):857-81.) Signed: Case Carpenter MD Report Verified Date/Time: 05/26/2018 16:02:19 Reading Location: [address] Reading Room Performing Organization Address City/State/Zipcode Phone Number [employer] RIS Treadmill tolerance(Non-Nuclear Treadmill) (05/26/2018 11:06 AM CDT) Narrative Performed At Protocol Name Ezekiel SeatID Time In Exercise Phase 00:01:00 Max. Systolic BP 170 mmHg Max Diastolic BP 88 mmHg Max Heart Rate 83 BPM Max Predicted Heart Rate 161 BPM Reason For Termination Predetermined end point Reason for Test Chest Pain Target HR Formula (220 - Age)*100% Arrhythmias none Resting ECG Normal sinus rhythm ST Changes No Significant Changes Overall Impression Indeterminate due to pharmacological stress Chest Pain none HR Response To Exercise BP Response To Exercise ASA Atorvastatin Imdur lovenox metoprolol Confirmed by fellow Nick Fairchild ([id number]) on 05/26/2018 1:09:22 PM Confirmed by Tank Laurent ([id number]) on 05/28/2018 4:59:37 PM Procedure Note Interface, External Ris In - 05/28/2018 4:59 PM CDT Protocol Name Ezekiel Time In Exercise Phase 00:01:00 Max. Systolic BP 170 mmHg Max Diastolic BP 88 mmHg Max Heart Rate 83 BPM Max Predicted Heart Rate 161 BPM Reason For Termination Predetermined end point Reason for Test Chest Pain Target HR Formula (220 - Age)*100% Arrhythmias none Resting ECG Normal sinus rhythm ST Changes No Significant Changes Overall Impression Indeterminate due to pharmacological stress Chest Pain none HR Response To Exercise BP Response To Exercise ASA Atorvastatin Imdur lovenox metoprolol Confirmed by fellow Nick Fairchild ([id number]) on 05/26/2018 1:09:22 PM Confirmed by Tank Laurent ([id number]) on 05/28/2018 4:59:37 PM Performing Organization Address City/State/Zipcode Phone Number GE MUSE CBC (Hemogram only) (05/26/2018 4:08 AM CDT) WBC 6.3 3.5 - 10.5 K/L [facility] RBC 4.07 3.93 - 5.22 M/L [facility] Hemoglobin 11.1 (L) 11.2 - 15.7 GM/DL [facility] Hematocrit 35.9 34.1 - 44.9 % [facility] MCV 88.2 79.4 - 94.8 fL [facility] MCH 27.3 25.6 - 32.2 pg [facility] MCHC 30.9 (L) 32.2 - 35.5 GM/DL [facility] RDW 14.1 11.7 - 14.4 % [facility] Platelets 210 150 - 450 K/CU MM [facility] MPV 9.9 9.4 - 12.3 fL [facility] nRBC 0 0 - 0 /100 WBC [facility] Specimen Blood - Arm, Left Performing Organization Address [facility]/Zipcode Phone Number [facility] [address] [place] [address] [phone] PAW PAW Basic Metabolic Panel (05/26/2018 4:08 AM CDT)Only the most recent of2 resultswithin the time period is included. Sodium 135 (L) 136 - 145 meq/L [facility] Potassium 4.4 3.5 - 5.1 meq/L [facility] Chloride 102 98 - 107 meq/L [facility] CO2 24 22 - 29 meq/L [facility] BUN 11 7 - 21 mg/dL [facility] Creatinine 0.68 0.57 - 1.25 mg/dL [facility] Glucose 96 70 - 105 mg/dL [facility] Calcium 9.1 8.4 - 10.2 mg/dL [facility] EGFR 89Comment: ESTIMATED GFR IS mL/min/1.73 sq m [facility] NOT ACCURATE [facility] CLEARANCE IN PREDICTING GLOMERULAR FILTRATION RATE. ESTIMATED GFR IS NOT APPLICABLE FOR DIALYSIS PATIENTS. Specimen Blood - Arm, Left Performing Organization Address [facility] Phone Number [facility] [address] [place] [address] PAW PAW MR brain without IV contrast (05/25/2018 9:50 PM CDT) Narrative Performed At FINAL REPORT [employer] [facility] MR, BRAIN, WITHOUT CONTRAST, MR, MRA, NECK, WITHOUT IV CONTRAST, MR, MRA, BRAIN, WITHOUT CONTRAST INDICATION: Stroke Ischemic Stroke Evaluation TECHNIQUE: Multiplanar, multisequence MR images of the brain.3-D time of flight MRA of the cranial and cervical circulation. 2-D time of flight MRA of the neck. 3D MIP angiographic post-processing was performed. Stenosis evaluation utilized NASCET criteria. COMPARISON: Noncontrast brain CT of the same date FINDINGS: MRI BRAIN: Cerebral parenchyma: Unremarkable. Midline structures: Normally positioned. Cerebellum and brainstem: Normal. Ventricles: Normal volume. Extra-axial spaces: Unremarkable. Calvarium and skull base: Normal signal. Paranasal sinuses and mastoid air cells: Visible chambers are clear. Orbital contents: No acute abnormality. Additional findings: None. MRA BRAIN: Internal carotid arteries: Patent. Middle cerebral arteries: Patent to distal branches. Anterior cerebral arteries: Intact. Basilar system: Patent vertebrobasilar system. Posterior cerebral arteries:Patent beyond the quadrigeminal segments. Additional findings: None. MRA NECK: Common carotid arteries: Unremarkable. Bifurcations: No flow-limiting stenosis. Cervical internal carotid arteries: No flow limiting stenosis. Vertebral arteries: Codominant. No origin or extracranial stenosis. IMPRESSION: No acute ischemia or parenchymal hemorrhage. No flow limiting stenosis in the major branch vessels of the cervical or cranial circulation. Signed: JR Keating Robert MD Report Verified Date/Time:05/25/2018 22:00:39 Reading Location: [address] Body Reading Room Procedure Note Interface, External Ris In - 05/25/2018 10:02 PM CDT FINAL REPORT MR, BRAIN, WITHOUT CONTRAST, MR, MRA, NECK, WITHOUT IV CONTRAST, MR, MRA, BRAIN, WITHOUT CONTRAST INDICATION: Stroke Ischemic Stroke Evaluation TECHNIQUE: Multiplanar, multisequence MR images of the brain. 3-D time of flight MRA of the cranial and cervical circulation. 2-D time of flight MRA of the neck. 3D MIP angiographic post-processing was performed. Stenosis evaluation utilized NASCET criteria. COMPARISON: Noncontrast brain CT of the same date FINDINGS: MRI BRAIN: Cerebral parenchyma: Unremarkable. Midline structures: Normally positioned. Cerebellum and brainstem: Normal. Ventricles: Normal volume. Extra-axial spaces: Unremarkable. Calvarium and skull base: Normal signal. Paranasal sinuses and mastoid air cells: Visible chambers are clear. Orbital contents: No acute abnormality. Additional findings: None. MRA BRAIN: Internal carotid arteries: Patent. Middle cerebral arteries: Patent to distal branches. Anterior cerebral arteries: Intact. Basilar system: Patent vertebrobasilar system. Posterior cerebral arteries:Patent beyond the quadrigeminal segments. Additional findings: None. MRA NECK: Common carotid arteries: Unremarkable. Bifurcations: No flow-limiting stenosis. Cervical internal carotid arteries: No flow limiting stenosis. Vertebral arteries: Codominant. No origin or extracranial stenosis. IMPRESSION: No acute ischemia or parenchymal hemorrhage. No flow limiting stenosis in the major branch vessels of the cervical or cranial circulation. Signed: JR Keating Robert MD Report Verified Date/Time: 05/25/2018 22:00:39 Reading Location: [facility] C0[facility] CT Body Reading Room Performing Organization Address City/State/Zipcode Phone Number [employer] RIS MRA neck without IV contrast (05/25/2018 9:50 PM CDT) Narrative Performed At FINAL REPORT [employer] MR, BRAIN, WITHOUT CONTRAST, MR, MRA, NECK, WITHOUT IV CONTRAST, MR, MRA, BRAIN, WITHOUT CONTRAST INDICATION: Stroke Ischemic Stroke Evaluation TECHNIQUE: Multiplanar, multisequence MR images of the brain.3-D time of flight MRA of the cranial and cervical circulation. 2-D time of flight MRA of the neck. 3D MIP angiographic post-processing was performed. Stenosis evaluation utilized NASCET criteria. COMPARISON: Noncontrast brain CT of the same date FINDINGS: MRI BRAIN: Cerebral parenchyma: Unremarkable. Midline structures: Normally positioned. Cerebellum and brainstem: Normal. Ventricles: Normal volume. Extra-axial spaces: Unremarkable. Calvarium and skull base: Normal signal. Paranasal sinuses and mastoid air cells: Visible chambers are clear. Orbital contents: No acute abnormality. Additional findings: None. MRA BRAIN: Internal carotid arteries: Patent. Middle cerebral arteries: Patent to distal branches. Anterior cerebral arteries: Intact. Basilar system: Patent vertebrobasilar system. Posterior cerebral arteries:Patent beyond the quadrigeminal segments. Additional findings: None. MRA NECK: Common carotid arteries: Unremarkable. Bifurcations: No flow-limiting stenosis. Cervical internal carotid arteries: No flow limiting stenosis. Vertebral arteries: Codominant. No origin or extracranial stenosis. IMPRESSION: No acute ischemia or parenchymal hemorrhage. No flow limiting stenosis in the major branch vessels of the cervical or cranial circulation. Signed: JR Keating Robert MD Report Verified Date/Time:05/25/2018 22:00:39 Reading Location: [facility] C0[facility] CT Body Reading Room Procedure Note Interface, External Ris In - 05/25/2018 10:02 PM CDT FINAL REPORT MR, BRAIN, WITHOUT CONTRAST, MR, MRA, NECK, WITHOUT IV CONTRAST, MR, MRA, BRAIN, WITHOUT CONTRAST INDICATION: Stroke Ischemic Stroke Evaluation TECHNIQUE: Multiplanar, multisequence MR images of the brain. 3-D time of flight MRA of the cranial and cervical circulation. 2-D time of flight MRA of the neck. 3D MIP angiographic post-processing was performed. Stenosis evaluation utilized NASCET criteria. COMPARISON: Noncontrast brain CT of the same date FINDINGS: MRI BRAIN: Cerebral parenchyma: Unremarkable. Midline structures: Normally positioned. Cerebellum and brainstem: Normal. Ventricles: Normal volume. Extra-axial spaces: Unremarkable. Calvarium and skull base: Normal signal. Paranasal sinuses and mastoid air cells: Visible chambers are clear. Orbital contents: No acute abnormality. Additional findings: None. MRA BRAIN: Internal carotid arteries: Patent. Middle cerebral arteries: Patent to distal branches. Anterior cerebral arteries: Intact. Basilar system: Patent vertebrobasilar system. Posterior cerebral arteries:Patent beyond the quadrigeminal segments. Additional findings: None. MRA NECK: Common carotid arteries: Unremarkable. Bifurcations: No flow-limiting stenosis. Cervical internal carotid arteries: No flow limiting stenosis. Vertebral arteries: Codominant. No origin or extracranial stenosis. IMPRESSION: No acute ischemia or parenchymal hemorrhage. No flow limiting stenosis in the major branch vessels of the cervical or cranial circulation. Signed: JR Keating Robert MD Report Verified Date/Time: 05/25/2018 22:00:39 Reading Location: [facility] C013Y CT Body Reading Room Performing Organization Address City/State/Zipcode Phone Number [employer] MRA head without IV contrast (05/25/2018 9:50 PM CDT) Narrative Performed At FINAL REPORT [employer] MR, BRAIN, WITHOUT CONTRAST, MR, MRA, NECK, WITHOUT IV CONTRAST, MR, MRA, BRAIN, WITHOUT CONTRAST INDICATION: Stroke Ischemic Stroke Evaluation TECHNIQUE: Multiplanar, multisequence MR images of the brain.3-D time of flight MRA of the cranial and cervical circulation. 2-D time of flight MRA of the neck. 3D MIP angiographic post-processing was performed. Stenosis evaluation utilized NASCET criteria. COMPARISON: Noncontrast brain CT of the same date FINDINGS: MRI BRAIN: Cerebral parenchyma: Unremarkable. Midline structures: Normally positioned. Cerebellum and brainstem: Normal. Ventricles: Normal volume. Extra-axial spaces: Unremarkable. Calvarium and skull base: Normal signal. Paranasal sinuses and mastoid air cells: Visible chambers are clear. Orbital contents: No acute abnormality. Additional findings: None. MRA BRAIN: Internal carotid arteries: Patent. Middle cerebral arteries: Patent to distal branches. Anterior cerebral arteries: Intact. Basilar system: Patent vertebrobasilar system. Posterior cerebral arteries:Patent beyond the quadrigeminal segments. Additional findings: None. MRA NECK: Common carotid arteries: Unremarkable. Bifurcations: No flow-limiting stenosis. Cervical internal carotid arteries: No flow limiting stenosis. Vertebral arteries: Codominant. No origin or extracranial stenosis. IMPRESSION: No acute ischemia or parenchymal hemorrhage. No flow limiting stenosis in the major branch vessels of the cervical or cranial circulation. Signed: JR Keating Robert MD Report Verified Date/Time:05/25/2018 22:00:39 Reading Location: [address] Body Reading Room Procedure Note Interface, External Ris In - 05/25/2018 10:02 PM CDT FINAL REPORT MR, BRAIN, WITHOUT CONTRAST, MR, MRA, NECK, WITHOUT IV CONTRAST, MR, MRA, BRAIN, WITHOUT CONTRAST INDICATION: Stroke Ischemic Stroke Evaluation TECHNIQUE: Multiplanar, multisequence MR images of the brain. 3-D time of flight MRA of the cranial and cervical circulation. 2-D time of flight MRA of the neck. 3D MIP angiographic post-processing was performed. Stenosis evaluation utilized NASCET criteria. COMPARISON: Noncontrast brain CT of the same date FINDINGS: MRI BRAIN: Cerebral parenchyma: Unremarkable. Midline structures: Normally positioned. Cerebellum and brainstem: Normal. Ventricles: Normal volume. Extra-axial spaces: Unremarkable. Calvarium and skull base: Normal signal. Paranasal sinuses and mastoid air cells: Visible chambers are clear. Orbital contents: No acute abnormality. Additional findings: None. MRA BRAIN: Internal carotid arteries: Patent. Middle cerebral arteries: Patent to distal branches. Anterior cerebral arteries: Intact. Basilar system: Patent vertebrobasilar system. Posterior cerebral arteries:Patent beyond the quadrigeminal segments. Additional findings: None. MRA NECK: Common carotid arteries: Unremarkable. Bifurcations: No flow-limiting stenosis. Cervical internal carotid arteries: No flow limiting stenosis. Vertebral arteries: Codominant. No origin or extracranial stenosis. IMPRESSION: No acute ischemia or parenchymal hemorrhage. No flow limiting stenosis in the major branch vessels of the cervical or cranial circulation. Signed: JR Keating Robert MD Report Verified Date/Time: 05/25/2018 22:00:39 Reading Location: [facility] B1 C013Y CT Body Reading Room Performing Organization Address City/State/Zipcode Phone Number [employer] ECHOCARDIOGRAM REPORT - SCAN (05/25/2018 5:50 PM CDT) Narrative Performed At 2D Echo W/Doppler(CW/PW/Color) (05/25/2018 2:21 PM CDT) Ejection Fraction [facility] Narrative Performed At Transthoracic Echocardiography Report (TTE) [facility] Demographics Patient Name Marion ELLIOTT of Study 05/25/2018 [id number] GenderFemale Visit Number [id number] RaceCaucasian [id number] m Number [id number] Number Date of Birth1960 Referring Physician Michael Guardado MD Age57 year(s) Senior Trainer Mehran Muniz [facility] Franco Jones MD [facility] Physician Procedure Type of Study TTE procedure:2DECHO W DOPPLER(CW/PW/COLOR) (Routine) Indications:Shortness of breath. Clinical History HGB 11.6 HCT 37.2 % COPD, HTN, CVA, HX SMOKING, CAD, ALCOHOLISM, STENT (2015) Height: 61 inches Weight: 65.77 kg (145 lbs) BSA: 1.65 m^2 BMI: 27.4 kg/m^2 HR: 77 bpm BP: 183/77 mmHg Summary The left ventricle is chamber size (by vol index) is normal (female - LVED vol - 29-61ml/m2). Normal LV wall thickness. All of the LV segments are hyperkinetic . Global LV systolic function hyperdynamic . LVEF by [place]'s method of disk assessment is increased (>60%) . The LVEF was measured using [place]'s bi-plane method of disk . High (cardiac index >4 L/min/m2) cardiac output state at rest is noted. Grade 1 diastolic dysfunction (impaired relaxation and low-normal LA pressure). The right ventricular chamber size and systolic function are within normal limits. Unable to estimate peak systolic PA pressure; inadequate TR velocity signal. No pericardial effusion is visualized. Previous Study No prior exam available for comparison. Signature Findings Technical Quality: Technically adequate exam. Left Ventricle The left ventricle is chamber size (by vol index) is normal (female - LVED vol - 29-61ml/m2). Normal LV wall thickness. All of the LV segments are hy perkinetic . Global LV systolic function hy perdynamic . LVEF by [place]'s method of disk as sessment is increased (>60%) . The LVEF was me asured using [place]'s bi-plane method of disk . Hi gh (cardiac index >4 L/min/m2) cardiac output st ate at rest is noted. Grade 1 diastolic dy sfunction (impaired relaxation and low-normal LA pr essure). Left AtriumLA size is normal (16-34 ml/m2) . Right VentricleThe right ventricular chamber size and systolic fu nction are within normal limits. Right Atrium RA cavity size is normal . Aortic Valve AoV is partially visualized. Mi ld aortic regurgitation. Mitral Valve Normal MV structure. No evidence of mitral regurgitation. Tricuspid ValveA trace of tricuspid regurgitation. TV structure is normal. Un able to estimate peak systolic PA pressure; in adequate TR velocity signal. Pulmonic Valve PV is not well visualized; function appears normal by Doppler visualized. AortaAortic root size (SInus of Valsalva diameter) is no rmal . PericardiumNo pericardial effusion is visualized. IVC/SVC/PA/PV/PleuralThe estimated RA pressure by IVC dynamics 5-10mmHg . Th e inferior vena cava size is normal . Th e inferior vena cava is adequately visualized. Chambers/Structures Left Atrium LA Volume: 31.71 ml LA Area: 14.02 cm^2 LA Vol. Index: 19 ml/m^2 Left Ventricle LVIDd: 3.86 cm LVEDV:82.01 ml LV Septum Diastolic: 1.02 cm LV PW Diastolic: 1.1 cm LVEDV [place]'s:71.86 mlLV Length: 7.22 cm LVESV [place]'s:24.66 ml LVEF [place]'s: 65.7 %L VEDVI: 44 ml/m^2 LVESVI: 15 ml/m^2 LVOT Diameter: 1.93 cm Aorta Ao Root S of Jeannine.: 3.2 cm Doppler/Quantitative Measurements Mitral Valve MV Peak E-Wave: 0.98 m/s MV Peak A-Wave: 1.21 m/s P1/2t: 76.1 msec E/A Ratio: 0.81 Peak Gradient: 3.88 mmHg Deceleration Time: 206.4 msec MV Area (PHT): 2.89 cm^2 MV Michael. Peak: Aortic Valve Peak Velocity: 1.6 m/s Mean Velocity: 1.1 m/s Peak Gradient: 10.22 mmHgMean Gradient: 5.49 mmHg AV Area (continuity): 2.51 cm^2 AV VTI: 34.52 cm AV DVI: 0.86 LVOT Peak Velocity: 1.46 m/s Peak Gradient: 8.48 mmHg Mean Velocity: 0.87 m/s Mean Gradient: 3.64 mmHg LVOT Diameter: 1.93 cmLVOT VTI: 29.65 cm LVOT Area: 2.93 cm^2LVOT SV:86.7 ml LVOT CO: 6.68 l/min LVOT CI: 4.05 l/min/m^2 Procedure Note Interface, External Ris In - 05/25/2018 5:20 PM CDT Transthoracic Echocardiography Report (TTE) Demographics Patient Name ANSLEY ELLIOTT Date of Study 05/25/2018 Gender Female Visit Number [id number] Race Room Number 2251 Number Date of 1960 Referring Physician Michael Guardado MD Age 57 year(s) 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 Clinical History HGB 11.6 HCT 37.2 % COPD, HTN, CVA, HX SMOKING, CAD, ALCOHOLISM, STENT (2016) Height: 61 inches Weight: 65.77 kg (145 lbs) BSA: 1.65 m^2 BMI: 27.4 kg/m^2 HR: 77 bpm BP: 183/77 mmHg Summary The left ventricle is chamber size (by vol index) is normal (female - LVED vol - 29-61ml/m2). Normal LV wall thickness. All of the LV segments are hyperkinetic . Global LV systolic function hyperdynamic . LVEF by [place]'s method of disk assessment is increased (>60%) . The LVEF was measured using [place]'s bi-plane method of disk . High (cardiac index >4 L/min/m2) cardiac output state at rest is noted. Grade 1 diastolic dysfunction (impaired relaxation and low-normal LA pressure). The right ventricular chamber size and systolic function are within normal limits. Unable to estimate peak systolic PA pressure; inadequate TR velocity signal. No pericardial effusion is visualized. Previous Study No prior exam available for comparison. Signature Findings Technical Quality: Technically adequate exam. Left Ventricle The left ventricle is chamber size (by vol index) is normal (female - LVED vol - 29-61ml/m2). Normal LV wall thickness. All of the LV segments are hyperkinetic . Global LV systolic function hyperdynamic . LVEF by [place]'s method of disk assessment is increased (>60%) . The LVEF was measured using [place]'s bi-plane method of disk . High (cardiac index >4 L/min/m2) cardiac output state at rest is noted. Grade 1 diastolic dysfunction (impaired relaxation and low-normal LA pressure). Left Atrium LA size is normal (16-34 ml/m2) . Right Ventricle The right ventricular chamber size and systolic function are within normal limits. Right Atrium RA cavity size is normal . Aortic Valve AoV is partially visualized. Mild aortic regurgitation. Mitral Valve Normal MV structure. No evidence of mitral regurgitation. Tricuspid Valve A trace of tricuspid regurgitation. TV structure is normal. Unable to estimate peak systolic PA pressure; inadequate TR velocity signal. Pulmonic Valve PV is not well visualized; function appears normal by Doppler visualized. Aorta Aortic root size (SInus of Valsalva diameter) is normal . Pericardium No pericardial effusion is visualized. IVC/SVC/PA/PV/Pleural The estimated RA pressure by IVC dynamics 5-10mmHg . The inferior vena cava size is normal . The inferior vena cava is adequately visualized. Chambers/Structures Left Atrium LA Volume: 31.71 ml LA Area: 14.02 cm^2 LA Vol. Index: 19 ml/m^2 Left Ventricle LVIDd: 3.86 cm LVEDV:82.01 ml LV Septum Diastolic: 1.02 cm LV PW Diastolic: 1.1 cm LVEDV [place]'s:71.86 ml LV Length: 7.22 cm LVESV [place]'s:24.66 ml LVEF [place]'s: 65.7 % LVEDVI: 44 ml/m^2 LVESVI: 15 ml/m^2 LVOT Diameter: 1.93 cm Aorta Ao Root S of Jeannine.: 3.2 cm Doppler/Quantitative Measurements Mitral Valve MV Peak E-Wave: 0.98 m/s MV Peak A-Wave: 1.21 m/s P1/2t: 76.1 msec E/A Ratio: 0.81 Peak Gradient: 3.88 mmHg Deceleration Time: 206.4 msec MV Area (PHT): 2.89 cm^2 MV Michael. Peak: Aortic Valve Peak Velocity: 1.6 m/s Mean Velocity: 1.1 m/s Peak Gradient: 10.22 mmHg Mean Gradient: 5.49 mmHg AV Area (continuity): 2.51 cm^2 AV VTI: 34.52 cm AV DVI: 0.86 LVOT Peak Velocity: 1.46 m/s Peak Gradient: 8.48 mmHg Mean Velocity: 0.87 m/s Mean Gradient: 3.64 mmHg LVOT Diameter: 1.93 cm LVOT VTI: 29.65 cm LVOT Area: 2.93 cm^2 LVOT SV:86.7 ml LVOT CO: 6.68 l/min LVOT CI: 4.05 l/min/m^2 Performing Organization Address [facility] Phone Number [facility] ECHO HEARTLAB MKCKESSON CPACS TSH/Free T4 If Indicated (05/25/2018 4:51 AM CDT) TSH 4.27 0.35 - 4.94 uIU/mL [facility] Specimen Blood Performing Organization Address [facility] Phone Number [address] [address] CENTER Calcium, Ionized (05/25/2018 4:51 AM CDT) Calcium, Ion 1.17 1.12 - 1.27 mmol/L [facility] pH, Blood 7.33 [facility] Specimen Blood Performing Organization Address [facility] Phone Number [address] [address] PAW PAW CBC with platelet count + automated diff (05/25/2018 4:51 AM CDT) WBC 7.1 3.5 - 10.5 K/L [facility] RBC 4.23 3.93 - 5.22 M/L [facility] Hemoglobin 11.6 11.2 - 15.7 GM/DL [facility] Hematocrit 37.2 34.1 - 44.9 % [facility] MCV 87.9 79.4 - 94.8 fL [facility] MCH 27.4 25.6 - 32.2 pg [facility] MCHC 31.2 (L) 32.2 - 35.5 GM/DL [facility] RDW 14.4 11.7 - 14.4 % [facility] Platelets 215 150 - 450 K/CU MM [facility] MPV 10.0 9.4 - 12.3 fL [facility] nRBC 0 0 - 0 /100 WBC [facility] % Neutros 54 % [facility] % Lymphs 35 % [facility] % Monos 8 % [facility] % Eos 2 % [facility] % Baso 1 % [facility] # Neutros 3.79 1.56 - 6.13 K/L [facility] # Lymphs 2.50 1.18 - 3.74 K/L [facility] # Monos 0.57 (H) 0.24 - 0.36 K/L [facility] # Eos 0.15 0.04 - 0.36 K/L [facility] # Baso 0.04 0.01 - 0.08 K/L [facility] Immature Granulocytes-Relative 0 0 - 1 % [facility] Specimen Blood Performing Organization Address City/State/Zipcode Phone Number [facility] [address] [place] [address] CENTER Troponin I (05/25/2018 4:51 AM CDT)Only the most recent of2 resultswithin the time period is included. Troponin I <0.01 0.00 - 0.03 ng/mL [facility] Specimen Blood Narrative Performed At [facility] Troponin I (TnI) levels must be interpreted [...] failure, acidosis, acute neurological disease, and persistent tachyarrhythmia. Performing Organization Address City/State/Zipcode Phone Number [address] [address] [phone] CENTER Phosphorus (05/25/2018 4:51 AM CDT) Phosphorus 4.1 2.3 - 4.7 mg/dL [facility] Specimen Blood Performing Organization Address City/[facility] Phone Number [address] [address] CENTER Magnesium (05/25/2018 4:51 AM CDT) Magnesium 2.0 1.6 - 2.6 mg/dL [facility] Specimen Blood Performing Organization Address City/[facility]/Zipcode Phone Number [address] [address] CENTER Hemoglobin A1c (05/25/2018 4:51 AM CDT) Hemoglobin A1C 5.4 4.3 - 6.1 % [facility] Specimen Blood Performing Organization Address [facility] Phone Number [address] [address] [phone] CENTER Creatine Kinase (CK), Total and MB (05/25/2018 4:51 AM CDT)Only the most recent of2 resultswithin the time period is included. Total CK 53 29 - 200 U/L [facility] CK-MB 3.9 0.0 - 6.6 ng/mL [facility] MB Relative Index 7.4 % [facility] Specimen Blood Narrative Performed At CK-MB Reference Range: [facility] <6.7Normal 6.7-10.0Borderline >10.0 Abnormal Performing Organization Address [facility] Phone Number [address] [address] PAW PAW Lipid panel (05/25/2018 4:51 AM CDT) Triglycerides 190 mg/dL [facility] Cholesterol 170 mg/dL [facility] HDL 62 mg/dL [facility] LDL Calculated 70 mg/dL [facility] Specimen Blood Narrative Performed At [facility] Triglyceride Reference Range: Low Risk <150 [id number] High Risk 200-499 Very High Risk>=500 Cholesterol Reference Range: Low Risk <200 [id number] High Risk>240 HDL Cholesterol Reference Range: Low Risk >=60 High Risk <40 LDL Cholesterol Reference Range: Optimal<100 Near [id number] [id number] Lycu443-594 Very High >=190 Performing Organization Address [facility] Phone Number [address] [address] PAW PAW PT/aPTT (05/24/2018 8:59 PM CDT) Protime 14.5 11.7 - 14.7 seconds [facility] INR 1.1 <=5.9 [facility] PTT 29.0 22.5 - 36.0 seconds [facility] Specimen Blood Narrative Performed At [facility] RECOMMENDED COUMADIN/WARFARIN INR THERAPY RANGES STANDARD DOSE: 2.0 - 3.0 Includes: PROPHYLAXIS for venous thrombosis, systemic embolization; TREATMENT for venous thrombosis and/or pulmonary embolus. HIGH RISK: Target INR is 2.5-3.5 for patients with mechanical heart valves. Performing Organization Address City/[facility]/Zipcode Phone Number [facility] [address] [place] [address] CENTER XR chest 1 view portable / bedside (05/24/2018 7:09 PM CDT) Narrative Performed At FINAL REPORT [employer] History: Shortness of breath. Comparison: None. Findings: A single view of the chest is submitted. The patient is rotated to the left. The cardiomediastinal contours are unremarkable. The lungs are hyperinflated. There is no focal consolidation, pneumothorax, large pleural effusion or evidence of overt pulmonary edema. There is no acute bony abnormality. Signed: Jose Decker MD Report Verified Date/Time:05/24/2018 20:22:32 Reading Location: [address] Reading Room Procedure Note Interface, External Ris In - 05/24/2018 8:24 PM CDT FINAL REPORT History: Shortness of breath. Comparison: None. Findings: A single view of the chest is submitted. The patient is rotated to the left. The cardiomediastinal contours are unremarkable. The lungs are hyperinflated. There is no focal consolidation, pneumothorax, large pleural effusion or evidence of overt pulmonary edema. There is no acute bony abnormality. Signed: Jose Decker MD Report Verified Date/Time: 05/24/2018 20:22:32 Reading Location: [address] Reading Room Performing Organization Address City/[facility]/Zipcode Phone Number [facility] ECG 12 lead (05/24/2018 6:43 PM CDT) Narrative Performed At Ventricular Rate 85 BPM [facility] Atrial Rate 85 BPM P-R Interval 146 ms QRS Duration 76 ms Q-T Interval 368 ms QTC Calculation(Bazett) 437 ms P Mims 77 degrees R Mims 68 degrees T Mims 61 degrees Normal sinus rhythm Normal ECG No previous ECGs available Confirmed by MD MAURILIO, CYN ([id number]) on 05/25/2018 6:30:52 AM Procedure Note Interface, External Ris In - 05/25/2018 6:31 AM CDT Ventricular Rate 85 BPM Atrial Rate 85 BPM P-R Interval 146 ms QRS Duration 76 ms Q-T Interval 368 ms QTC Calculation(Bazett) 437 ms P Mims 77 degrees R Mims 68 degrees T Mims 61 degrees Normal sinus rhythm Normal ECG No previous ECGs available Confirmed by MD MAURILIO, CYN ([id number]) on 05/25/2018 6:30:52 AM Performing Organization Address City/State/Zipcode Phone Number [facility] MUSE after 07/29/2017 Insurance Payer Benefit Plan / Group Subscriber ID Type Phone Address MEDICAID - MEDICAID MEDICAID [employer] xxxxxxxxx Medicaid [facility]GD CARE Non-Contracted Advance Directives For more information, please contact:[address] [phone] Code Status Date Activated Date Inactivated Comments Full Code 05/24/2018 6:42 PM 05/27/2018 6:57 PM This code status was determined by: Patient
[2018-07-30] MEDS ORDERED: ALBUTEROL 2.5 MG/3 ML NEB SOL ONE (23:47)
[2018-07-30] MEDS ORDERED: METHYLPREDNISOLONE 125 MG INJ ONE (23:47)
[2018-07-30] MEDS ORDERED: IPRATROPIUM BROM 0.5MG/2.5ML ONE (23:47)
[2018-07-30] MEDS ORDERED: MAGNESIUM SULFATE 1 gm IVPB 1 GM/100 ML BAG IV ONE (23:48)
[2018-07-31 00:24] LABS: Absolute Monocytes 0.6 K/uL (0.1-1.3); Absolute Neutrophil 2.9 K/uL (1.8-8.0); Basophils % 0.3 % (0-1.3); Eosinophils % 2.1 % (0-4.4); Hematocrit 39.3 % (36.0-45.0); MCV 86.3 fL (80-100); RBC Red Blood Cell Count 4.55 M/uL (3.86-4.86)
[2018-07-31 00:26] LABS: BUN Blood Urea Nitrogen 11 mg/dL (7-18); Bicarbonate 28 mmol/L (21-32); Glucose Level 124 mg/dL (74-106); NT PRO-BNP 26 pg/mL (<125); Potassium 3.5 mmol/L (3.5-5.1); Sodium Level 143 mmol/L (136-145); Troponin (Emerg Dept Use Only) < 0.02 ng/mL (0.0-0.045)
[2018-07-31 01:23] LABS: Urine Blood TRACE (NEG); Urine Glucose NEGATIVE (NEG); Urine Protein NEGATIVE (NEG); Urine Specific Gravity <1.005 (1.005-1.030); Urine pH 6.5 (5.0-7.0)
[2018-07-31 01:30] LABS: Urine Culture Reflex Order REFLEXED
[2018-07-31 01:31] LABS: Urine Bacteria 20-50 /HPF (<20); Urine RBC NONE SEEN /HPF (NONE SEEN)
[2018-07-31] MEDS ORDERED: ALBUTEROL 2.5 MG/3 ML NEB SOL ONE (01:31)
[2018-07-31] MEDS ORDERED: IPRATROPIUM BROM 0.5MG/2.5ML ONE (01:31)
--- NOTE | 2018-07-31 01:56 | EDPHYS ---
Physician Documentation [facility] Name: Ansley Henderson Age: 57 yrs Sex: Female : 1960 Arrival Date: 07/30/2018 Time: 23:19 Bed 30 Private MD: ED Physician Gil Anderson HPI: 07/31 00:03 This 57 yrs old Female presents to ER via EMS with complaints of Breathing kb Difficulty. 00:03 The patient has shortness of breath at rest, and the patient has a history of COPD. kb Onset: The symptoms/episode began/occurred this morning. Duration: The symptoms are continuous. The patient's shortness of breath is aggravated by nothing, is alleviated by nothing. Associated signs and symptoms: Pertinent positives: productive cough, Pertinent negatives: chest pain, diaphoresis, dizziness, fever, hemoptysis, loss of consciousness, nausea, numbness in extremities, visual changes, vomiting. Severity of symptoms: At their worst the symptoms were moderate in the emergency department the symptoms are unchanged. The patient has experienced similar episodes in the past, chronically. The patient has not recently seen a physician. Historical: - Home Meds: 07/30 23:27 albuterol sulfate 90 mcg/actuation Inhl HFAA 1 puff every 4 hours [Active]; aspirin 81 tl3 mg Oral TbEC 1 tab once daily [Active]; lisinopril 20 mg Oral tab 1 tab once daily [Active]; Spiriva with HandiHaler 18 mcg inhalation CpDv 1 cap once daily [Active]; - PMHx: 23:27 CAD; COPD; CVA; HEART STENT; Hypertension; tl3 - PSHx: 23:27 ; tl3 - Immunization history:: Adult Immunizations unknown. - Social history:: Smoking status: unknown. - Ebola Screening: : No symptoms or risks identified at this time. ROS: 07/31 00:01 Constitutional: Negative for fever, chills, and weight loss, Cardiovascular: Negative kb for chest pain, palpitations, and edema, Abdomen/GI: Negative for abdominal pain, nausea, vomiting, diarrhea, and constipation, Back: Negative for injury and pain, MS/Extremity: Negative for injury and deformity, Skin: Negative for injury, rash, and discoloration, Neuro: Negative for headache, weakness, numbness, tingling, and seizure. Respiratory: Positive for cough, dyspnea on exertion, shortness of breath, Negative for hemoptysis, orthopnea, pleurisy. Exam: 00:01 Constitutional: This is a well developed, well nourished patient who is awake, alert, kb and in no acute distress. Head/Face: Normocephalic, atraumatic. Chest/axilla: Normal chest wall appearance and motion. Nontender with no deformity. No lesions are appreciated. Cardiovascular: Regular rate and rhythm with a normal S1 and S2. No gallops, murmurs, or rubs. Normal PMI, no JVD. No pulse deficits. Abdomen/GI: Soft, non-tender, with normal bowel sounds. No distension or tympany. No guarding or rebound. No evidence of tenderness throughout. Back: No spinal tenderness. No costovertebral tenderness. Full range of motion. Skin: Warm, dry with normal turgor. Normal color with no rashes, no lesions, and no evidence of cellulitis. MS/ Extremity: Pulses equal, no cyanosis. Neurovascular intact. Full, normal range of motion. Neuro: Awake and alert, GCS 15, oriented to person, place, time, and situation. Cranial nerves II-XII grossly intact. Motor strength 5/5 in all extremities. Sensory grossly intact. Cerebellar exam normal. Normal gait. 00:01 Respiratory: moderate respiratory distress is noted, Respirations: labored breathing, that is moderate, Breath sounds: rhonchi, that are moderate, are heard in the right middle lobe, right lower lobe, right posterior middle lobe and right posterior lower lobe, wheezing: expiratory that is moderate, is heard in the left lower lobe and left posterior lower lobe. Vital Signs: 07/30 23:27 BP 144 / 76; Pulse 83; Resp 20; Pulse Ox 95% on 3 lpm NC; tl3 07/31 00:00 BP 122 / 87; Pulse 86; Resp 21; Pulse Ox 97% on 2 lpm NC; rv 00:48 BP 136 / 74; Pulse 86; Resp 21; Pulse Ox 97% on 2 lpm NC; rv 01:07 BP 104 / 49; Pulse 89; Resp 17; Pulse Ox 97% on 2 lpm NC; rv 01:50 BP 118 / 65; Pulse 97; Resp 20; Pulse Ox 95% on 2 lpm NC; rv 02:35 BP 116 / 48; Pulse 93; Resp 25; Pulse Ox 95% on 2 lpm NC; rv 03:00 Pulse 91; Resp 17; Pulse Ox 95% on 2 lpm NC; rv MDM: 07/30 23:24 Patient medically screened. 07/31 00:00 Data reviewed: vital signs, nurses notes. Data interpreted: Pulse oximetry: on 1.5L(s) kb per nasal canula, is 95 %. Interpretation: acceptable. 01:54 Counseling: I had a detailed discussion with the patient and/or guardian regarding: the kb historical points, exam findings, and any diagnostic results supporting the discharge/admit diagnosis, lab results, radiology results, the need for further work-up and treatment in the hospital. 01:56 Physician consultation: Joycelyn Washburn MD was contacted at 01:56, regarding admission, kb to the telemetry unit. patient's condition, and will see patient in ED, immediately. 07/30 23:32 Order name: Basic Metabolic Panel; Complete Time: 00:30 kb 07/30 23:32 Order name: CBC with Diff; Complete Time: 00:30 kb 07/30 23:32 Order name: Magnesium; Complete Time: 00:30 kb 07/30 23:32 Order name: NT PRO-BNP; Complete Time: 00:30 kb 07/30 23:32 Order name: Troponin (emerg Dept Use Only); Complete Time: 00:30 kb 07/30 23:43 Order name: Flu; Complete Time: 00:36 kb 07/30 23:32 Order name: XRAY Chest (1 view) kb 07/31 00:26 Order name: Urine Microscopic Only; Complete Time: 01:49 rv 07/31 00:29 Order name: Urine Dipstick--Ancillary (enter results); Complete Time: 01:25 ms 07/31 01:33 Order name: Urine Culture EDMS 07/30 23:32 Order name: EKG; Complete Time: 23:33 kb 07/30 23:32 Order name: Cardiac monitoring; Complete Time: 00:05 kb 07/30 23:32 Order name: EKG - Nurse/Tech; Complete Time: 00:05 kb 07/30 23:32 Order name: IV Saline Lock; Complete Time: 00:07 kb 07/30 23:32 Order name: Labs collected and sent; Complete Time: 00:07 kb 07/30 23:32 Order name: O2 Per Protocol; Complete Time: 00:07 kb 07/30 23:32 Order name: O2 Sat Monitoring; Complete Time: 00:08 kb 07/31 01:05 Order name: Vital Signs; Complete Time: 01:07 kb Administered Medications: 07/30 23:30 Drug: DuoNeb (3:1) (2.5 mg - 0.5 mg) 3 ml Route: Nebulizer; rv 07/31 01:25 Follow up: Response: No adverse reaction rv 07/30 23:45 Drug: SOLU-Medrol 125 mg Route: IVP; Site: right forearm; rv 07/31 01:26 Follow up: Response: No adverse reaction rv 07/30 23:45 Drug: Magnesium Sulfate 1 grams Route: IVPB; Infused Over: 30 mins; Site: right forearm;rv 07/31 01:25 Follow up: IV Status: Completed infusion rv 01:25 Drug: DuoNeb (3:1) (2.5 mg - 0.5 mg) 3 ml Route: Nebulizer; rv 02:37 Follow up: Response: No adverse reaction rv Disposition: 07/31/18 01:56 Hospitalization ordered by Joycelyn Washburn for Observation. Preliminary diagnosis is Chronic obstructive pulmonary disease with (acute) exacerbation. - Bed requested for Telemetry/MedSurg (observation). - Status is Observation. aa1 - Condition is Stable. - Problem is an acute exacerbation. - Symptoms are unchanged. UTI on Admission? Yes Addendum: 08/03/2018 06:55 Co-signature as Attending Physician, Gil Anderson MD I agree with the assessment and c foster plan of care. Signatures: Dispatcher [employer] Yuliya Campos, TRAIN BRAKER-C TRAIN BRAKER-CkYoko Andrade RN RN kl Virginia Somers RN RN aa1 Gil Anderson MD MD cha Lowrey, Tammy, RN RN tl3 René Augustine RN RN rv Corrections: (The following items were deleted from the chart) 07/31 02:52 01:56 Hospitalization Ordered by Joycelyn Washburn MD for Observation. Preliminary kl diagnosis is Chronic obstructive pulmonary disease with (acute) exacerbation. Bed requested for Telemetry/MedSurg (observation). Status is Observation. Condition is Stable. Problem is an acute exacerbation. Symptoms are unchanged. UTI on Admission? Yes. kb 03:28 02:52 07/31/2018 01:56 Hospitalization Ordered by Joycelyn Washburn MD for Observation. aa1 Preliminary diagnosis is Chronic obstructive pulmonary disease with (acute) exacerbation. Bed requested for Telemetry/MedSurg (observation). Status is Observation. Condition is Stable. Problem is an acute exacerbation. Symptoms are unchanged. UTI on Admission? Yes. kl
--- NOTE | 2018-07-31 01:56 | ER ---
Nurse's Notes [facility] Name: Ansley Henderson Age: 57 yrs Sex: Female : 1960 Arrival Date: 07/30/2018 Time: 23:19 Bed 30 Private MD: Diagnosis: Chronic obstructive pulmonary disease with (acute) exacerbation Presentation: 07/30 23:23 Presenting complaint: EMS states: pt c/o shortness of breath and back pain, is on home tl3 O2 received albuterol and atrovent neb en route to hospital. Pt also reports drinking about 2.5-3 inches of whisky bottle with water tonight. Transition of care: patient was not received from another setting of care. Onset of symptoms was July 30, 2018 at 23:25. Risk Assessment: Do you want to hurt yourself or someone else? Patient reports no desire to harm self or others. Initial Sepsis Screen: Does the patient meet any 2 criteria? No. Patient's initial sepsis screen is negative. Does the patient have a suspected source of infection? No. Patient's initial sepsis screen is negative. Care prior to arrival: None. 23:23 Method Of Arrival: EMS: [facility] tl3 23:23 Acuity: ENMANUEL 3 tl3 Triage Assessment: 23:27 General: Appears uncomfortable, slender, Behavior is cooperative, appropriate for age, tl3 anxious, Smells of alcohol. Pain: Complains of pain in back and chest. EENT: Nares with drainage noted. Neuro: Level of Consciousness is awake, alert, obeys commands, Oriented to person, place, time, situation, Appropriate for age. Cardiovascular: Patient's skin is warm and dry. Respiratory: Reports shortness of breath at rest air hunger Airway is patent Respiratory effort is even, labored, Respiratory pattern is symmetrical, tachypnea Onset: The symptoms/episode began/occurred gradually, the patient has moderate shortness of breath. GI: No signs and/or symptoms were reported involving the gastrointestinal system. : No signs and/or symptoms were reported regarding the genitourinary system. Historical: - Home Meds: 23:27 albuterol sulfate 90 mcg/actuation Inhl HFAA 1 puff every 4 hours [Active]; aspirin 81 tl3 mg Oral TbEC 1 tab once daily [Active]; lisinopril 20 mg Oral tab 1 tab once daily [Active]; Spiriva with HandiHaler 18 mcg inhalation CpDv 1 cap once daily [Active]; - PMHx: 23:27 CAD; COPD; CVA; HEART STENT; Hypertension; tl3 - PSHx: 23:27 ; tl3 - Immunization history:: Adult Immunizations unknown. - Social history:: Smoking status: unknown. - Ebola Screening: : No symptoms or risks identified at this time. Screenin:29 Abuse screen: Denies threats or abuse. Nutritional screening: No deficits noted. tl3 Tuberculosis screening: No symptoms or risk factors identified. Fall Risk None identified. Assessment: 23:29 Reassessment: No changes from previously documented assessment. tl3 07/31 00:44 Cardiovascular: Rhythm is regular. Respiratory: Airway is patent Breath sounds with rv wheezes bilaterally. 00:50 Reassessment: Patient appears in no apparent distress at this time. Patient and/or rv family updated on plan of care and expected duration. Pain level reassessed. Patient is alert, oriented x 3, equal unlabored respirations, skin warm/dry/pink. 01:51 Reassessment: Patient appears in no apparent distress at this time. Patient and/or rv family updated on plan of care and expected duration. Pain level reassessed. Patient is alert, oriented x 3, equal unlabored respirations, skin warm/dry/pink. Vital Signs: 07/30 23:27 BP 144 / 76; Pulse 83; Resp 20; Pulse Ox 95% on 3 lpm NC; tl3 07/31 00:00 BP 122 / 87; Pulse 86; Resp 21; Pulse Ox 97% on 2 lpm NC; rv 00:48 BP 136 / 74; Pulse 86; Resp 21; Pulse Ox 97% on 2 lpm NC; rv 01:07 BP 104 / 49; Pulse 89; Resp 17; Pulse Ox 97% on 2 lpm NC; rv 01:50 BP 118 / 65; Pulse 97; Resp 20; Pulse Ox 95% on 2 lpm NC; rv 02:35 BP 116 / 48; Pulse 93; Resp 25; Pulse Ox 95% on 2 lpm NC; rv 03:00 Pulse 91; Resp 17; Pulse Ox 95% on 2 lpm NC; rv ED Course: 07/30 23:19 Patient arrived in ED. ds1 23:24 Yuliya Fabian FNP-C [facility] kb 23:24 Gil Anderson MD is Attending Physician. kb 23:25 Triage completed. tl3 23:27 Arm band placed on right wrist. tl3 23:29 Patient has correct armband on for positive identification. Placed in gown. Bed in low tl3 position. Call light in reach. Side rails up X2. sales counselor on. Pulse ox on. NIBP on. 23:29 No provider procedures requiring assistance completed. tl3 23:57 Initial lab(s) drawn, by me, sent to lab. Inserted saline lock: 20 gauge in right tl3 forearm, using aseptic technique. Blood collected. 07/31 00:14 XRAY Chest (1 view) In Process Unspecified. EDMS 01:55 Joycelyn Washburn MD is Hospitalizing Provider. kb 03:02 Patient admitted, IV remains in place. intact. rv Administered Medications: 07/30 23:30 Drug: DuoNeb (3:1) (2.5 mg - 0.5 mg) 3 ml Route: Nebulizer; rv 07/31 01:25 Follow up: Response: No adverse reaction rv 07/30 23:45 Drug: SOLU-Medrol 125 mg Route: IVP; Site: right forearm; rv 07/31 01:26 Follow up: Response: No adverse reaction rv 07/30 23:45 Drug: Magnesium Sulfate 1 grams Route: IVPB; Infused Over: 30 mins; Site: right forearm;rv 07/31 01:25 Follow up: IV Status: Completed infusion rv 01:25 Drug: DuoNeb (3:1) (2.5 mg - 0.5 mg) 3 ml Route: Nebulizer; rv 02:37 Follow up: Response: No adverse reaction rv Outcome: 00:50 Condition: good rv 01:56 Decision to Hospitalize by Provider. kb 03:01 Admitted to Med/surg accompanied by nurse, via wheelchair, room 218, with chart, Report rv called to STEVE ZIMMER 03:01 Instructed on the need for admit. 03:28 Patient left the ED. aa1 Signatures: Dispatcher [employer] EDCA Yuliya Fabian FNP-C FNP-[place]ia Mata RN RN aa1 Sujatha Storey ds1 Soco Coles RN RN tl3 Davide, René, RN RN rv
--- NOTE | 2018-07-31 03:27 | P.HP ---
Certification for Inpatient Patient admitted to: Observation With expected LOS: <2 Midnights Practitioner: I am a practitioner with admitting privileges, knowledge of patient current condition, hospital course, and medical plan of care. Services: Services provided to patient in accordance with Admission requirements found in Title 42 Section 412.3 of the Code of Federal Regulations Patient History Date of Service: 07/31/18 Reason for admission: COPD exacerbation History of Present Illness: Ms Henderson is a 57-year-old woman with history of coronary artery disease, COPD on home oxygen about 2 L by [facility] with productive cough about 3 or 4 days ago , her sputum is whitish, she also has had progressive shortness of breath. This afternoon around 2 o'clock, her symptoms had worse and she decided to come to ER for further evaluation. She denied any fever or chills at home. Workup in ER revealed normal WBC count, is afebrile, chest-x-ray showed not acute infiltrate. After receive breathing treatment and steroid IV steroid, the patient slightly improved, but she is still on significant shortness of breath and sign bronchospasm. Allergies No Known Allergies Allergy (Verified 01/18/17 22:07) Home medications list reviewed: Yes Home Medications: Aspirin Chewable [Aspirin Chewable*] 81 mg PO DAILY 01/18/17 Albuterol Sulfate [Proair Hfa] 8.5 gm IH TID PRN #90 hfa.aer.ad 01/20/17 Budesonide/Formoterol Fumarate [Symbicort 160-4.5 Mcg Inhaler] 2 puff IH BID #1 hfa.aer.ad 12/22/17 Lisinopril [Prinivil*] 10 mg PO DAILY #30 tab 12/22/17 Pantoprazole [Protonix Tab] 40 mg PO DAILY #30 tab 12/22/17 Tiotropium [place] [Spiriva] 1 inhaler IH DAILY #1 inhaler 12/22/17 predniSONE [Prednisone*] 20 mg PO SEECOM #15 tab 12/22/17 - Past Medical/Surgical History Diabetic: No -: Hypertension -: Coronary artery disease, stent -: COPD -: hx Tobacco abuse -: GERD -: Gastric ulcers -: -: Stent placement Psychosocial/ Personal History: The patient is . She has 5 children. She currently lives by herself. She recently moved to the area from [place]. - Family History Mother -: Heart disease - Social History Smoking Status: Former smoker Alcohol use: Yes CD- Drugs: No Caffeine use: Yes Place of Residence: Home Review of Systems 10-point ROS is otherwise unremarkable Physical Examination - Physical Exam General: Alert, In no apparent distress HEENT: Atraumatic, PERRLA, Mucous membr. moist/pink, EOMI, Sclerae nonicteric Neck: Supple, 2+ carotid pulse no bruit, No LAD, Without JVD or thyroid abnormality Respiratory: Diminished, Expiratory wheezes, Rhonchi/gurgles Cardiovascular: Regular rate/rhythm, Normal S1 S2 Gastrointestinal: Normal bowel sounds, No tenderness Musculoskeletal: No tenderness Integumentary: No rashes Neurological: Normal speech, Normal strength at 5/5 x4 extr, Normal tone, Normal affect Lymphatics: No axilla or inguinal lymphadenopathy - Studies Laboratory Data (last 24 hrs) 07/30/18 23:40: WBC 7.8, Hgb 13.2, Hct 39.3, Plt Count 268 07/30/18 23:40: Sodium 143, Potassium 3.5, BUN 11, Creatinine 0.60, Glucose 124 H, Magnesium 2.0 Microbiology Data (last 24 hrs): 07/30/18 23:40 Nasopharnyx Influenza Type A Antigen Screen - Final 07/30/18 23:40 Nasopharnyx Influenza Type B Antigen Screen - Final Assessment and Plan - Problems (Diagnosis) (1) COPD exacerbation Current Visit: Yes Status: Acute (2) Coronary artery disease Onset Date: 01/20/17 Current Visit: No Status: Chronic Qualifiers: Coronary Disease-Associated Artery/Lesion type: [place] artery [place] vs. transplanted heart: [place] heart Associated angina: without angina Qualified Code(s): I25.10 - Atherosclerotic heart disease of [place] coronary artery without angina pectoris (3) Former smoker Onset Date: 01/20/17 Current Visit: No Status: Chronic (4) Hypertension Onset Date: 01/20/17 Current Visit: No Status: Chronic Qualifiers: Hypertension type: essential hypertension (5) GERD (gastroesophageal reflux disease) Onset Date: 01/20/17 Current Visit: No Status: Suspected Qualifiers: Esophagitis presence: without esophagitis Qualified Code(s): K21.9 - Gastro -esophageal reflux disease without esophagitis - Plan The patient will be admitted to the hospital due to COPD exacerbation. She has normal WBC count, procalcitonin and lactate is still pending. Chest x-ray shows no acute infiltrate. Will continue IV steroids, breathing treatment. Will consult pulmonology for evaluation and recommendation. - Advance Directives Does patient have a Living Will: Yes Does patient have a Durable POA for Healthcare: No - Code Status/Comfort Care Code Status Assessed: Yes Code Status: Full Code
[2018-07-31] MEDS ORDERED: ONDANSETRON 4 MG/2 ML VIAL IV PRN (03:37)
[2018-07-31] MEDS ORDERED: NA CHLORIDE 0.9% 1,000 ML IV SCH (04:00)
[2018-07-31] MEDS: ALBUTEROL 2.5 MG/3 ML NEB SOL NEB SCH ×5 (04:32→20:00)
[2018-07-31] MEDS: IPRATROPIUM BROM 0.5MG/2.5ML NEB SCH ×4 (04:32→19:30)
[2018-07-31] MEDS: METHYLPREDNISOLONE 125 MG INJ IV SCH ×2 (05:29→11:55)
[2018-07-31] MEDS: ACETAMINOPHEN 500 MG TAB PO PRN ×3 (05:32→19:13)
[2018-07-31 06:03] VITALS: BMI 24.7
--- NOTE | 2018-07-31 07:05 | EKG ---
Test Date: 2018-07-31 Test Time: 00:14:12 Veneer Clipper Helper: MEASUREMENT RESULTS: Intervals: Rate: 87 CA: 162 QRSD: 74 QT: 368 QTc: 442 [place]: P: 70 CA: 162 QRS: 78 T: 68 INTERPRETIVE STATEMENTS: Normal sinus rhythm Nonspecific ST abnormality Abnormal ECG Compared to ECG 05/24/2018 14:53:29 ST (T wave) deviation now present Electronically Signed On 07-31-18 07:04:10 SHRIMP CLEANER by Duc Winslow
[2018-07-31] MEDS ORDERED: POTASSIUM CL SA 10 MEQ TAB PO ONE (07:54)
--- NOTE | 2018-07-31 08:19 | RAD REPORT ---
EXAM DESCRIPTION: RAD - Chest Single View - 07/31/2018 12:07 am CLINICAL HISTORY: Cough;Dyspnea Chest pain. COMPARISON: Chest Single View dated 12/21/2017; Chest Single View dated 12/20/2017; Chest Single View da christine 05/30/2017; Chest Pa And Lat (2 Views) dated 01/19/2017 FINDINGS: Portable technique limits examination quality. The lungs are grossly clear. The heart is normal in size. No displaced fractures. IMPRESSION: No acute intrathoracic process suspected.
[2018-07-31] MEDS: ENOXAPARIN 40 MG/0.4 ML SQ SCH (08:53)
--- NOTE | 2018-07-31 12:40 | P.CNS ---
Date of Consult: 07/31/18 Chief Complaint: COPD exacerbation History of Present Illness: Patient is 57 years of age well known to me history of recurrent COPD exacerbation been sick for about a month and now dollar inhalers currently not smoking she developed an upper respiratory tract infection was admitted with worsening dyspnea doing better she was much better are inhalers Allergies No Known Allergies Allergy (Verified 01/18/17 22:07) Home Medications: Amlodipine Besylate 5 mg PO DAILY 07/31/18 Aspirin [Adult Aspirin] 81 mg PO DAILY 07/31/18 Atorvastatin Calcium [Lipitor] 80 mg PO BEDTIME 07/31/18 Isosorbide Dinitrate 30 mg PO DAILY 07/31/18 Metoprolol Tartrate 25 mg PO DAILY 07/31/18 Omeprazole [Prilosec] 40 mg PO DAILY 07/31/18 - Past Medical/Surgical History Diabetic: No -: Hypertension -: Coronary artery disease, stent -: COPD -: hx Tobacco abuse -: GERD -: Gastric ulcers -: -: Stent placement Psychosocial/ Personal History: The patient is . She has 5 children. She currently lives by herself. She recently moved to the area from [place]. - Family History Mother Medical History: Heart disease - Social History Smoking Status: Unknown if ever smoked Alcohol use: Yes CD- Drugs: No Caffeine use: Yes Place of Residence: Home Review of Systems 10-point ROS is otherwise unremarkable Physical Examination Temp Pulse Resp BP Pulse Ox 97 F 105 H 18 132/64 92 07/31/18 08:00 07/31/18 08:00 07/31/18 08:00 07/31/18 08:00 07/31/18 08:00 General: Alert, Oriented x3 HEENT: Atraumatic Neck: Supple Respiratory: Expiratory wheezes Cardiovascular: No edema, Regular rate/rhythm Gastrointestinal: Normal bowel sounds, Soft and benign Musculoskeletal: No clubbing, No swelling Laboratory Data (last 24 hrs) 07/30/18 23:40: WBC 7.8, Hgb 13.2, Hct 39.3, Plt Count 268 07/30/18 23:40: Sodium 143, Potassium 3.5, BUN 11, Creatinine 0.60, Glucose 124 H, Magnesium 2.0 - Problems (1) COPD exacerbation Current Visit: Yes Status: Acute Plan: Patient is 57 years of age well known to me with a history of recurrent COPD exacerbation admitted with worsening dyspnea for the past month she had a are all or inhalers currently doing better labs reviewed unremarkable chest clear prior to discharge home tomorrow on prednisone 10 mg twice a day refill her Symbicort patient now has Medicaid recommend adding Spiriva continue with ProAir follow up in my office in 2 weeks patient has oxygen at home once portable oxygen with a regulator
[2018-07-31] MEDS: ARFORMOTEROL TARTRATE 15 MCG/2 ML VIAL.NEB NEB SCH ×2 (12:41→19:30)
--- NOTE | 2018-07-31 13:01 | EKG ---
Test Date: 2018-07-31 Test Time: 00:15:14 Decaler: MEASUREMENT RESULTS: Intervals: Rate: 84 [place]: 164 QRSD: 78 QT: 384 QTc: 453 [place]: P: 77 [place]: 164 QRS: 76 T: 74 INTERPRETIVE STATEMENTS: Normal sinus rhythm Nonspecific ST abnormality Abnormal ECG Compared to ECG 07/31/2018 00:14:12 No significant changes Electronically Signed On 07-31-18 13:00:15 ANAESTHETIC TECHNICIAN by Duc Winslow
[2018-07-31] MEDS: METHYLPREDNISOLONE 40 MG INJ IV SCH (16:19)
[2018-07-31] MEDS: ATORVASTATIN 80 MG TAB PO SCH (20:47)
[2018-08-01] MEDS: METHYLPREDNISOLONE 40 MG INJ IV SCH ×3 (00:03→16:41)
[2018-08-01] MEDS: TRAMADOL HCL 50 MG TAB PO PRN ×2 (00:56→20:08)
[2018-08-01] MEDS: IPRATROPIUM BROM 0.5MG/2.5ML NEB SCH ×3 (01:18→13:59)
[2018-08-01] MEDS: ALBUTEROL 2.5 MG/3 ML NEB SOL NEB SCH ×3 (02:00→13:59)
[2018-08-01] MEDS: PANTOPRAZOLE 40MG TABLET PO SCH (05:31)
[2018-08-01 06:12] LABS: Absolute Monocytes 0.2 K/uL (0.1-1.3); Absolute Neutrophil 10.6 K/uL (1.8-8.0); Basophils % 0.1 % (0-1.3); Lymphocytes % 8.7 % (15.3-44.8); MCH 29.2 pg (27.0-35.0); MCV 87.6 fL (80-100); MPV 8.3 fL (7.6-11.3); Monocytes % 1.8 % (3.3-12.3); RBC Red Blood Cell Count 3.88 M/uL (3.86-4.86)
[2018-08-01 06:29] LABS: BUN Blood Urea Nitrogen 11 mg/dL (7-18); Bicarbonate 29 mmol/L (21-32); Glucose Level 158 mg/dL (74-106); Potassium 4.5 mmol/L (3.5-5.1); Sodium Level 141 mmol/L (136-145)
[2018-08-01 07:10] LABS: Blood Morphology Comment NOT SEEN (NOT SEEN); Platelet Estimate ADEQ; Urine White Blood Cell Casts OK
[2018-08-01] MEDS: ARFORMOTEROL TARTRATE 15 MCG/2 ML VIAL.NEB NEB SCH ×2 (07:40→20:07)
[2018-08-01] MEDS: ASPIRIN EC 81 MG TAB PO SCH (08:40)
[2018-08-01] MEDS: ISOSORBIDE MONO SR 30 MG TAB PO SCH (08:41)
[2018-08-01] MEDS: AMLODIPINE 5 MG TAB PO SCH (08:41)
[2018-08-01] MEDS: METOPROLOL TAR 25 MG TAB PO SCH (08:41)
[2018-08-01] MEDS: ENOXAPARIN 40 MG/0.4 ML SQ SCH (08:42)
--- NOTE | 2018-08-01 09:39 | EKG ---
Test Date: 2018-08-01 Test Time: 08:56:39 Offset Pressman: GROVER Musa MEASUREMENT RESULTS: Intervals: Rate: 109 OH: 166 QRSD: 80 QT: 344 QTc: 463 [place]: P: 79 OH: 166 QRS: 67 T: 68 INTERPRETIVE STATEMENTS: Sinus tachycardia Nonspecific ST abnormality Abnormal ECG Compared to ECG 07/31/2018 00:15:14 Sinus rhythm no longer present ST (T wave) deviation still present Electronically Signed On 08-02-18 11:54:43 SHOT BLASTER by Duc Winslow
--- NOTE | 2018-08-01 11:10 | P.PN ---
Subjective Date of Service: 08/01/18 Chief Complaint: COPD exacerbation Subjective: Tolerating diet, Ambulating, Improving, Working w/ PT, Doing well Review of Systems 10-point ROS is otherwise unremarkable Physical Examination - Vital Signs Temperature: 98.4 F Blood Pressure: 151/65 Pulse: 114 Respirations: 18 Pulse Ox (%): 97 - Physical Exam General: Alert, In no apparent distress HEENT: Atraumatic, PERRLA, EOMI Neck: Supple, JVD not distended Respiratory: Normal air movement, Expiratory wheezes, Inspiratory wheezes Cardiovascular: Regular rate/rhythm, Normal S1 S2 Gastrointestinal: Normal bowel sounds, No tenderness Musculoskeletal: No tenderness Integumentary: No rashes Neurological: Normal speech, Normal tone, Normal affect Lymphatics: No axilla or inguinal lymphadenopathy - Studies Medications List Reviewed: Yes Assessment And Plan - Current Problems (Diagnosis) (1) COPD exacerbation Current Visit: Yes Status: Acute Plan: COPD exacerbation due to Viral Illness -Duonebs, Steriods and Oxygen for now -Uses Oxygen at home -anticipate Discharge 24 to 48 hrs (2) Coronary artery disease Onset Date: 01/20/17 Current Visit: No Status: Chronic Qualifiers: Coronary Disease-Associated Artery/Lesion type: [place] artery [place] vs. transplanted heart: [place] heart Associated angina: without angina Qualified Code(s): I25.10 - Atherosclerotic heart disease of [place] coronary artery without angina pectoris (3) Former smoker Onset Date: 01/20/17 Current Visit: No Status: Chronic (4) Hypertension Onset Date: 01/20/17 Current Visit: No Status: Chronic Qualifiers: Hypertension type: essential hypertension (5) GERD (gastroesophageal reflux disease) Onset Date: 01/20/17 Current Visit: No Status: Suspected Qualifiers: Esophagitis presence: without esophagitis Qualified Code(s): K21.9 - Gastro -esophageal reflux disease without esophagitis Discharge Plan: Home Plan to discharge in: 48 Hours - Code Status/Comfort Care Code Status Assessed: Yes Critical Care: No
[2018-08-01] MEDS ORDERED: IPRATROPIUM BROM 0.5MG/2.5ML NEB PRN (14:10)
[2018-08-01] MEDS ORDERED: LEVALBUTEROL 0.63 MG/3 ML NEB NEB PRN (14:10)
[2018-08-01] MEDS: ATORVASTATIN 80 MG TAB PO SCH (20:07)
[2018-08-02] MEDS: METHYLPREDNISOLONE 40 MG INJ IV SCH ×2 (00:04→09:00)
[2018-08-02] MEDS: PANTOPRAZOLE 40MG TABLET PO SCH (05:31)
[2018-08-02] MEDS: ARFORMOTEROL TARTRATE 15 MCG/2 ML VIAL.NEB NEB SCH (08:09)
[2018-08-02 09:03] VITALS: O2SAT 98
[2018-08-02 09:14] VITALS: TEMP 97.2
[2018-08-02] MEDS: AMLODIPINE 5 MG TAB PO SCH (09:21)
[2018-08-02] MEDS: ISOSORBIDE MONO SR 30 MG TAB PO SCH (09:21)
[2018-08-02] MEDS: ENOXAPARIN 40 MG/0.4 ML SQ SCH (09:21)
[2018-08-02] MEDS: METOPROLOL TAR 25 MG TAB PO SCH (09:22)
[2018-08-02] MEDS: ASPIRIN EC 81 MG TAB PO SCH (09:22)
--- NOTE | 2018-08-02 11:28 | P.PN ---
Subjective Date of Service: 08/02/18 Chief Complaint: COPD exacerbation Subjective: Improving (Patient is doing better still complaining of cough congestion coughing up some clear sputum) Review of Systems General: Weakness Respiratory: Cough, Shortness of Breath Physical Examination - Vital Signs Temperature: 97.2 F Blood Pressure: 149/75 Pulse: 81 Respirations: 18 Pulse Ox (%): 98 - Physical Exam General: Alert, Oriented x3 HEENT: Atraumatic Neck: Supple Respiratory: Expiratory wheezes Cardiovascular: No edema, Regular rate/rhythm - Studies Microbiology Data (last 24 hrs): 07/31/18 00:15 Clean Catch Urine [place] Count - Final >100,000 CFU/ML. 07/31/18 00:15 Clean Catch Urine - Final Escherichia Coli Medications List Reviewed: Yes Assessment & Plan - Problems (Diagnosis) (1) COPD exacerbation Current Visit: Yes Status: Acute Plan: Patient is 57 years of age admitted with COPD exacerbation from noncompliance ran out of her medications/can be discharged home Stiolto and pro air in addition to low-dose prednisone patient will not qualify for portable oxygen is chest x-rays clear no evidence of sepsis no antibiotics needed follow up with me in 1 or 2 weeks labs unremarkable E. coli isolated in the urine probably nonspecific Discharge Plan: Home
[2018-08-02 13:09] VITALS: BP 143/66
--- NOTE | 2018-08-02 14:25 | P.DS ---
Admission Date: 07/31/18 Discharge Date: 08/02/18 Disposition: ROUTINE DISCHARGE Discharge Condition: FAIR Reason for Admission: COPD exacerbation Consultations: Pulmonology - Problems (1) COPD exacerbation Status: Acute (2) Coronary artery disease Onset Date: 01/20/17 Status: Chronic Qualifiers: Coronary Disease-Associated Artery/Lesion type: [place] artery [place] vs. transplanted heart: [place] heart Associated angina: without angina Qualified Code(s): I25.10 - Atherosclerotic heart disease of [place] coronary artery without angina pectoris (3) Former smoker Onset Date: 01/20/17 Status: Chronic (4) Hypertension Onset Date: 01/20/17 Status: Chronic Qualifiers: Hypertension type: essential hypertension (5) GERD (gastroesophageal reflux disease) Onset Date: 01/20/17 Status: Suspected Qualifiers: Esophagitis presence: without esophagitis Qualified Code(s): K21.9 - Gastro -esophageal reflux disease without esophagitis Brief History of Present Illness: Ms Henderson is a 57-year-old woman with history of coronary artery disease, COPD on home oxygen about 2 L by [place] start with productive cough about 3 or 4 days ago , her sputum is whitish, she also has had progressive shortness of breath. This afternoon around 2 o'clock, her symptoms had worse and she decided to come to ER for further evaluation. She denied any fever or chills at home. Workup in ER revealed normal WBC count, is afebrile, chest-x-ray showed not acute infiltrate. After receive breathing treatment and steroid IV steroid, the patient slightly improved, but she is still on significant shortness of breath and sign bronchospasm. Hospital Course: Overall the hospital stay patient remained stable The patient was initially admitted to the hospital for COPD exacerbation was started on duo nebs, steroids, oxygen here. Pulmonology was consulted here in the hospital who recommended the patient be started on a new inhaler. After 48 hr of observation and resolution of her symptoms patient was discharged home under stable condition. Was asked to follow up with pulmonology in about 1-2 days post discharge. Vital Signs/Physical Exam: Temp Pulse Resp BP Pulse Ox 97.2 F 66 20 143/66 H 93 08/02/18 12:00 08/02/18 12:00 08/02/18 12:00 08/02/18 12:00 08/02/18 12:00 General: Alert, In no apparent distress HEENT: Atraumatic, PERRLA, EOMI Neck: Supple, JVD not distended Respiratory: Clear to auscultation bilaterally, Normal air movement Cardiovascular: Regular rate/rhythm, Normal S1 S2 Gastrointestinal: Normal bowel sounds, No tenderness Musculoskeletal: No tenderness Integumentary: No rashes Neurological: Normal speech, Normal tone, Normal affect Lymphatics: No axilla or inguinal lymphadenopathy Laboratory Data at Discharge: WBC 11.9 K/uL (4.3-10.9) H D 08/01/18 05:15 Hgb 11.3 g/dL (12.0-15.0) L 08/01/18 05:15 Hct 34.0 % (36.0-45.0) L 08/01/18 05:15 Plt Count 241 K/uL (152-406) 08/01/18 05:15 Sodium 141 mmol/L (136-145) 08/01/18 05:15 Potassium 4.5 mmol/L (3.5-5.1) 08/01/18 05:15 BUN 11 mg/dL (7-18) 08/01/18 05:15 Creatinine 0.50 mg/dL (0.55-1.3) L 08/01/18 05:15 Glucose 158 mg/dL (74-106) H 08/01/18 05:15 Magnesium 2.0 mg/dL (1.8-2.4) 07/30/18 23:40 Home Medications: Amlodipine Besylate 5 mg PO DAILY 07/31/18 Aspirin [Adult Aspirin] 81 mg PO DAILY 07/31/18 Atorvastatin Calcium [Lipitor] 80 mg PO BEDTIME 07/31/18 Isosorbide Dinitrate 30 mg PO DAILY 07/31/18 Metoprolol Tartrate 25 mg PO DAILY 07/31/18 Omeprazole [Prilosec] 40 mg PO DAILY 07/31/18 Tiotropium Br/Olodaterol HCl [Stiolto Respimat Inhal Reasnor] 4 gm IH DAILY #1 mist.inhal 08/02/18 predniSONE [Deltasone] 10 mg PO BID #20 tab 08/02/18 New Medications: predniSONE [Deltasone] 10 mg PO BID #20 tab Tiotropium Br/Olodaterol HCl [Stiolto Respimat Inhal Reasnor] 4 gm IH DAILY #1 mist.inhal Patient Discharge Instructions: I have faxed prescription for STiato and prednisone. Patient will not qualify for portable oxygen as a room-air sats is normal please inform patient will discuss at followup Diet: Regular Activity: Ad cathy Followup: Sd Lucero MD [ACTIVE - CAN ADMIT] - 1-2 Weeks (call to schedule an appointment)
== END 2018-08-02 14:15 | disposition home or self-care (01) | DRG 192 ==
LOC: ER 23:17 → ERHOLD 07-31 02:12 → 2ND 07-31 03:06 → OBSVTOIN 07-31 12:30
PROVIDERS: ADMIT Internal Medicine; ATTEND Internal Medicine
DX: J44.1 Chronic obstructive pulmonary disease with (acute) exacerbation (principal); Z99.81 Dependence on supplemental oxygen; I25.10 Atherosclerotic heart disease of native coronary artery without angina pectoris; I10 Essential (primary) hypertension; K21.9 Gastro-esophageal reflux disease without esophagitis; Z95.5 Presence of coronary angioplasty implant and graft; Z87.891 Personal history of nicotine dependence; Z79.82 Long term (current) use of aspirin
CPT/HCPCS: 36415; 71045; 80048; 81003; 81015; 83605; 83735; 83880; 84132; 84145; 84484; 85025; 87077; 87086; 87088; 87186; 87804; 93005; 94640; 94760; 96365; 96366; 96375; 99285; G0378; J1650; J2920; J2930; J3475; J7030; J7605

== ENCOUNTER 2018-08-15 21:17 | Inpatient (IN) | payer OTHER ==
--- OUTSIDE RECORDS SUMMARY | 2018-08-15 21:19 | XMS REPORT | Clinical Summary ---
:1960 Author Organization [facility] Address [address] [place] [address] Care Team Providers Name Role Phone Unavailable [...] Zane Chronic alcohol abuse Verito Bhagat after 08/14/2017 Social History Tobacco Use Types Packs/Day Years [...] procedure are in the results section. after 08/14/2017 Results RHYTHM STRIP - SCAN (05/28/2018 2:51 PM CDT) Narrative Performed At NM myocardial perfusion SPECT,pharm(Lexiscan) (05/26/2018 3:46 PM CDT) Narrative Performed At FINAL REPORT [employer] PROCEDURE:Rest/Stress MYOCARDIAL PERFUSION SPECT with regadenoson\\XA9\\ CPT CODE:27410 INDICATION:Chest pain HISTORY:Cardiac risk factors: Hypertension, family [...] the lung due to COPD.6. No previous [facility] study for comparison. NONINVASIVE RISK STRATIFICATION: The above findings are considered low risk (<1% annual mortality rate) based on the following criterion: - Normal or small myocardial perfusion defect at rest or with stress (JACC. 2012;59(9):857-81.) Signed: Case Carpenter MD Report Verified Date/Time:05/26/2018 16:02:19 Reading Location: [address] Reading Room Procedure Note Interface, External Ris In - 05/26/2018 4:04 PM CDT FINAL REPORT PROCEDURE: Rest/Stress MYOCARDIAL PERFUSION SPECT with regadenoson\\XA9\\ CPT CODE: 82869 INDICATION: Chest pain HISTORY: Cardiac risk factors: [...] lung due to COPD. 6. No previous [facility] study for comparison. NONINVASIVE RISK STRATIFICATION: The above findings are considered low risk (<1% annual mortality rate) based on the following criterion: - Normal or small myocardial perfusion defect at rest or with stress (JACC. 2012;59(9):857-81.) Signed: Case Carpenter MD Report Verified Date/Time: 05/26/2018 16:02:19 Reading Location: [address] Reading Room Performing Organization Address City/State/Zipcode Phone Number [employer] RIS Treadmill tolerance(Non-Nuclear Treadmill) (05/26/2018 11:06 AM CDT) Narrative Performed At Protocol Name [facility] Time In Exercise Phase 00:01:00 Max. Systolic [...] lovenox metoprolol Confirmed by fellow Nick Fairchild ([id number]) on 05/26/2018 1:09:22 PM Confirmed by Tank Laurent ([id number]) on 05/28/2018 4:59:37 PM Procedure Note Interface, [...] 05/26/2018 1:09:22 PM Confirmed by Tank Laurent ([id number]) on 05/28/2018 4:59:37 PM Performing Organization Address City/State/Zipcode Phone Number GE MUSE CBC (Hemogram only) (05/26/2018 4:08 AM CDT) WBC 6.3 3.5 - 10.5 K/L [facility] RBC 4.07 3.93 - 5.22 M/L [facility] Hemoglobin 11.1 (L) 11.2 - 15.7 GM/DL [facility] Hematocrit 35.9 34.1 - 44.9 % [facility] MCV 88.2 79.4 - 94.8 fL [facility] MCH 27.3 25.6 - 32.2 pg [facility] MCHC 30.9 (L) 32.2 - 35.5 GM/DL [facility] RDW 14.1 11.7 - 14.4 % [facility] Platelets 210 150 - 450 K/CU MM [facility] MPV 9.9 9.4 - 12.3 fL [facility] nRBC 0 0 - 0 /100 WBC [facility] Specimen Blood - Arm, Left Performing Organization Address [facility]/Zipcode Phone Number [facility] [address] [place] [address] [place] Basic Metabolic Panel (05/26/2018 4:08 AM CDT)Only the most recent of2 resultswithin the time period is included. Sodium 135 (L) 136 - 145 meq/L [facility] Potassium 4.4 3.5 - 5.1 meq/L [facility] Chloride 102 98 - 107 meq/L [facility] CO2 24 22 - 29 meq/L [facility] BUN 11 7 - 21 mg/dL [facility] Creatinine 0.68 0.57 - 1.25 mg/dL [facility] Glucose 96 70 - 105 mg/dL [facility] Calcium 9.1 8.4 - 10.2 mg/dL [facility] EGFR 89Comment: ESTIMATED GFR IS mL/min/1.73 sq m [facility] NOT ACCURATE CREATININE [facility] CLEARANCE IN PREDICTING GLOMERULAR FILTRATION RATE. ESTIMATED GFR IS NOT APPLICABLE FOR DIALYSIS PATIENTS. Specimen Blood - Arm, Left Performing Organization Address [facility] Phone Number [facility] [address] [place] [address] [place] MR brain without IV contrast (05/25/2018 9:50 PM CDT) Narrative Performed At FINAL REPORT [facility] MR, BRAIN, WITHOUT CONTRAST, MR, MRA, [...] MD Report Verified Date/Time:05/25/2018 22:00:39 Reading Location: [address] Body Reading Room Procedure Note [...] Report Verified Date/Time: 05/25/2018 22:00:39 Reading Location: [facility] C[facility] Body Reading Room Performing Organization Address City/State/Zipcode Phone Number [employer] RIS MRA neck without IV contrast (05/25/2018 9:50 PM CDT) Narrative Performed At FINAL REPORT [employer] MR, BRAIN, WITHOUT CONTRAST, MR, MRA, NECK, [...] MD Report Verified Date/Time:05/25/2018 22:00:39 Reading Location: [facility] C[facility] Body Reading Room Procedure Note [...] Report Verified Date/Time: 05/25/2018 22:00:39 Reading Location: [facility] C013Y CT Body Reading Room Performing Organization Address City/State/Zipcode Phone Number [employer] MRA head without IV contrast (05/25/2018 9:50 PM CDT) Narrative Performed At FINAL REPORT [employer] MR, BRAIN, WITHOUT CONTRAST, MR, MRA, NECK, [...] MD Report Verified Date/Time:05/25/2018 22:00:39 Reading Location: [address] Body Reading Room Procedure Note [...] Verified Date/Time: 05/25/2018 22:00:39 Reading Location: [facility] B1 C[address] [address] Body Reading Room Performing Organization Address City/State/Zipcode Phone Number [employer] ECHOCARDIOGRAM REPORT - SCAN (05/25/2018 5:50 PM CDT) Narrative Performed At 2D Echo W/Doppler(CW/PW/Color) (05/25/2018 2:21 PM CDT) Ejection Fraction [facility] Narrative Performed At Transthoracic Echocardiography Report (TTE) [facility] Demographics Patient Name Marion ELLIOTT of Study 05/25/2018 [id number] GenderFemale Visit Number [id number] RaceCaucasian [id number] m Number 2251 Number Date of Birth1960 Referring Physician Michael Guardado MD Age57 year(s) Support Representative Mehran Muniz [facility] Franco Jones MD [facility] Physician Procedure Type of Study TTE [...] of Study 05/25/2018 Gender Female Visit Number [id number] Race Room Number 2251 Number Date of 1960 Referring Physician Michael Guardado MD Age 57 year(s) Support Representative Mehran Muniz [facility] Clamp Jig Assembler Sarah Snider, Interpreting Yong Javed MD [facility] Physician Procedure Type of Study TTE [...] LVOT CI: 4.05 l/min/m^2 Performing Organization Address [facility] Phone Number [facility] ECHO HEART[facility] MKCKESSON CPACS TSH/Free T4 If Indicated (05/25/2018 4:51 AM CDT) TSH 4.27 0.35 - 4.94 uIU/mL [facility] Specimen Blood Performing Organization Address [facility] [place] Phone Number [address] [address] [phone] CENTER Calcium, Ionized (05/25/2018 4:51 AM CDT) Calcium, Ion 1.17 1.12 - 1.27 mmol/L [facility] pH, Blood 7.33 [facility] Specimen Blood Performing Organization Address [facility] [place] Phone Number [address] [address] [phone] [place] CBC with platelet count + automated diff (05/25/2018 4:51 AM CDT) WBC 7.1 3.5 - 10.5 K/L [facility] RBC 4.23 3.93 - 5.22 M/L [facility] Hemoglobin 11.6 11.2 - 15.7 GM/DL [facility] Hematocrit 37.2 34.1 - 44.9 % [facility] MCV 87.9 79.4 - 94.8 fL [facility] MCH 27.4 25.6 - 32.2 pg [facility] MCHC 31.2 (L) 32.2 - 35.5 GM/DL [facility] RDW 14.4 11.7 - 14.4 % [facility] Platelets 215 150 - 450 K/CU MM [facility] MPV 10.0 9.4 - 12.3 fL [facility] nRBC 0 0 - 0 /100 WBC [facility] % Neutros 54 % [facility] % Lymphs 35 % [facility] % Monos 8 % [facility] % Eos 2 % [facility] % Baso 1 % [facility] # Neutros 3.79 1.56 - 6.13 K/L [facility] # Lymphs 2.50 1.18 - 3.74 K/L [facility] # Monos 0.57 (H) 0.24 - 0.36 K/L [facility] # Eos 0.15 0.04 - 0.36 K/L [facility] # Baso 0.04 0.01 - 0.08 K/L [facility] Immature Granulocytes-Relative 0 0 - 1 % [facility] Specimen Blood Performing Organization Address City/State/Zipcode Phone Number [facility] [address] [place] [address] CENTER Troponin I (05/25/2018 4:51 AM CDT)Only the most recent of2 resultswithin the time period is included. Troponin I <0.01 0.00 - 0.03 ng/mL [facility] Specimen Blood Narrative Performed At [facility] Troponin I (TnI) levels must be interpreted [...] tachyarrhythmia. Performing Organization Address City/State/Zipcode Phone Number [address] [address] [phone] CENTER Phosphorus (05/25/2018 4:51 AM CDT) Phosphorus 4.1 2.3 - 4.7 mg/dL [facility] Specimen Blood Performing Organization Address City/[facility] Phone Number [address] [address] [phone] CENTER Magnesium (05/25/2018 4:51 AM CDT) Magnesium 2.0 1.6 - 2.6 mg/dL [facility] Specimen Blood Performing Organization Address City/[facility]/Zipcode Phone Number [address] [address] CENTER Hemoglobin A1c (05/25/2018 4:51 AM CDT) Hemoglobin A1C 5.4 4.3 - 6.1 % [facility] Specimen Blood Performing Organization Address [facility] Phone Number [address] [address] [phone] CENTER Creatine Kinase (CK), Total and MB (05/25/2018 4:51 AM CDT)Only the most recent of2 resultswithin the time period is included. Total CK 53 29 - 200 U/L [facility] CK-MB 3.9 0.0 - 6.6 ng/mL [facility] MB Relative Index 7.4 % [facility] Specimen Blood Narrative Performed At CK-MB Reference Range: [facility] <6.7Normal 6.7-10.0Borderline >10.0 Abnormal Performing Organization Address [facility] [place] Phone Number [address] [address] [place] Lipid panel (05/25/2018 4:51 AM CDT) Triglycerides 190 mg/dL [facility] Cholesterol 170 mg/dL [facility] HDL 62 mg/dL [facility] LDL Calculated 70 mg/dL [facility] Specimen Blood Narrative Performed At [facility] Triglyceride Reference Range: Low Risk <150 Exylvmfsbo762-905 High Risk 200-499 Very High Risk>=500 Cholesterol Reference Range: Low Risk <200 Gspbnnlzox672-523 High Risk>240 HDL Cholesterol Reference Range: Low Risk >=60 High Risk <40 LDL Cholesterol Reference Range: Optimal<100 Near Oxujggd729-355 Jeobgoqufh677-847 Lxkv189-305 Very High >=190 Performing Organization Address City/[facility] Phone Number [address] [address] [place] PT/aPTT (05/24/2018 8:59 PM CDT) Protime 14.5 11.7 - 14.7 seconds [facility] INR 1.1 <=5.9 [facility] PTT 29.0 22.5 - 36.0 seconds [facility] Specimen Blood Narrative Performed At [facility] RECOMMENDED COUMADIN/WARFARIN INR THERAPY RANGES STANDARD DOSE: 2.0 - 3.0 Includes: PROPHYLAXIS for venous thrombosis, systemic embolization; TREATMENT for venous thrombosis and/or pulmonary embolus. HIGH RISK: Target INR is 2.5-3.5 for patients with mechanical heart valves. Performing Organization Address City/[facility]/Zipcode Phone Number [facility] [address] [place] [address] [phone] CENTER XR chest 1 view portable / bedside (05/24/2018 7:09 PM CDT) Narrative Performed At FINAL REPORT [employer] History: Shortness of breath. Comparison: None. Findings: A single view of the chest is submitted. The patient is rotated to the left. The cardiomediastinal contours are unremarkable. The lungs are hyperinflated. There is no focal consolidation, pneumothorax, large pleural effusion or evidence of overt pulmonary edema. There is no acute bony abnormality. Signed: Jose Decker MD Report Verified Date/Time:05/24/2018 20:22:32 Reading Location: [address] Reading Room Procedure Note Interface, External [...] Report Verified Date/Time: 05/24/2018 20:22:32 Reading Location: [address] Reading Room Performing Organization Address City/[facility]/Zipcode Phone Number GE RIS ECG 12 lead (05/24/2018 6:43 PM CDT) Narrative Performed At Ventricular Rate 85 BPM GE MUSE Atrial Rate 85 BPM P-R Interval 146 ms QRS Duration 76 ms Q-T Interval 368 ms QTC Calculation(Bazett) 437 ms P [place] 77 degrees R [place] 68 degrees T [place] 61 degrees Normal sinus rhythm Normal ECG No previous ECGs available Confirmed by MD MAURILIO, CYN ([id number]) on 05/25/2018 6:30:52 AM Procedure Note Interface, External Ris In - 05/25/2018 6:31 AM CDT Ventricular Rate 85 BPM Atrial Rate 85 BPM P-R Interval 146 ms QRS Duration 76 ms Q-T Interval 368 ms QTC Calculation(Bazett) 437 ms P [place] 77 degrees R [place] 68 degrees T [place] 61 degrees Normal sinus rhythm Normal ECG No previous ECGs available Confirmed by MD MAURILIO, CYN ([id number]) on 05/25/2018 6:30:52 AM Performing Organization Address City/State/Zipcode Phone Number GE MUSE after 08/14/2017 Insurance Payer Benefit Plan / Group Subscriber ID Type Phone Address MEDICAID - MEDICAID MEDICAID [employer] xxxxxxxxx Medicaid MGD CARE Non-Contracted Advance Directives For more information, please contact:[address] [phone] Code Status Date Activated Date Inactivated Comments Full Code 05/24/2018 6:42 PM 05/27/2018 6:57 PM This code status was determined by: Patient
--- OUTSIDE RECORDS SUMMARY | 2018-08-15 21:20 | XMS REPORT ---
:1960 [facility] Address [address] [place] [address] Care Team Providers Name Role Phone JESE MABRYCecilia Unavailable Unavailable Problems This patient has no known problems. Allergies, Adverse Reactions, Alerts This patient has no known allergies or adverse reactions. Medications This patient has no known medications. Results Test Description Test Time Test Comments Text Results Atomic Results Result Comments MYOCARD MICAELA, YANCY, 2018-05-26 16:02:00 FINAL REPORT PHARM, SPECT PROCEDURE: Rest/Stress MYOCARDIAL PERFUSION SPECT with regadenoson\XA9\ CPT CODE: [id number] INDICATION: Chest pain HISTORY: Cardiac risk factors: [...] lung due to COPD. 6. No previous [facility] study for comparison. NONINVASIVE RISK STRATIFICATION: The above findings are considered low risk (<1% annual mortality rate) based on the following criterion:- Normal or small myocardial perfusion defect at rest or with stress(JACC. 2012;59(9):857-81.) Signed: Facundo Carpenter MDReport Verified Date/Time: 05/26/2018 16:02:19 Reading Location: [address] Reading Room C METABOLIC PANEL 2018-05-26 04:33:00 Test Item Value Reference Range Comments SODIUM (BEAKER) (test 135 meq/L 136-145 riew=620) POTASSIUM (BEAKER) (test 4.4 meq/L 3.5-5.1 qdkh=273) CHLORIDE (BEAKER) (test 102 meq/L 98-107 zjvg=329) CO2 (BEAKER) (test bxzp=895) 24 meq/L 22-29 BLOOD UREA NITROGEN (BEAKER) 11 mg/dL 7-21 (test wabh=321) CREATININE (BEAKER) (test 0.68 mg/dL 0.57-1.25 ekio=605) GLUCOSE RANDOM (BEAKER) 96 mg/dL 70-105 (test ddwz=525) CALCIUM (BEAKER) (test 9.1 mg/dL 8.4-10.2 yvhl=657) EGFR (BEAKER) (test 89 mL/min/1.73 sq m ESTIMATED GFR IS NOT dhpu=4456) ACCURATE CREATININE CLEARANCE IN PREDICTING GLOMERULAR FILTRATION RATE. ESTIMATED GFR IS NOT APPLICABLE FOR DIALYSIS PATIENTS. CBC (HEMOGRAM ONLY)2018-05-26 04:24:00 Test Item Value Reference Range Comments WHITE BLOOD CELL COUNT (BEAKER) (test tgjc=702) 6.3 K/ L 3.5-10.5 RED BLOOD CELL COUNT (BEAKER) (test uwfl=036) 4.07 M/ L 3.93-5.22 HEMOGLOBIN (BEAKER) (test csvy=978) 11.1 GM/DL 11.2-15.7 HEMATOCRIT (BEAKER) (test iyra=116) 35.9 % 34.1-44.9 MEAN CORPUSCULAR VOLUME (BEAKER) (test uejr=188) 88.2 fL 79.4-94.8 MEAN CORPUSCULAR HEMOGLOBIN (BEAKER) (test 27.3 pg 25.6-32.2 zejw=778) MEAN CORPUSCULAR HEMOGLOBIN CONC (BEAKER) (test 30.9 GM/DL 32.2-35.5 xvch=700) RED CELL DISTRIBUTION WIDTH (BEAKER) (test 14.1 % 11.7-14.4 bhli=297) PLATELET COUNT (BEAKER) (test mkaj=974) 210 K/CU MM 150-450 MEAN PLATELET VOLUME (BEAKER) (test upow=472) 9.9 fL 9.4-12.3 NUCLEATED RED BLOOD CELLS (BEAKER) (test 0 /100 WBC 0-0 jpli=789) MR, MRA, BRAIN, WITHOUT [id number] 22:00:00Reason for exam:-> Ischemic Stroke EvaluationFINAL REPORT [...] MDReport Verified Date/Time: 05/25/2018 22:00:39 Reading Location: [address] Body Reading Room MR, MRA, NECK, WITHOUT IV [id number] 22:00: 00Reason for exam:->Ischemic Stroke EvaluationFINAL REPORT [...] MDReport Verified Date/Time: 05/25/2018 22:00:39 Reading Location: [address] Body Reading Room MR, BRAIN, WITHOUT [id number] 22:00:00Reason for exam:->Ischemic Stroke EvaluationFINAL REPORT MR, [...] MDReport Verified Date/Time: 05/25/2018 22:00:39 Reading Location: [facility] B1 C013[facility] CT Body Reading Room HEMOGLOBIN [id number] 09:45:00 Test Item Value Reference Range Comments HEMOGLOBIN A1C (BEAKER) (test ppyr=325) 5.4 % 4.3-6.1 LIPID [id number] 07:58:00 Test Item Value Reference Range Comments TRIGLYCERIDES (BEAKER) (test yady=484) 190 mg/dL CHOLESTEROL (BEAKER) (test bswh=408) 170 mg/dL HDL CHOLESTEROL (BEAKER) (test btvh=446) 62 mg/dL LDL CHOLESTEROL CALCULATED (BEAKER) (test 70 mg/dL uzuy=513) Triglyceride Reference Range: Low Risk <150 Borderline 150- 199 High Risk 200-499 Very High Risk >=500Cholesterol Reference Range: Low Risk <200 Borderline 200-239 High Risk > 240HDL Cholesterol Reference Range: Low Risk >=60 High Risk <40LDL Cholesterol Reference Range: Optimal <100 Near Optimal 100-129 Borderline 130-159 High 160-189 Very High >=190TSH/FREE T4 IF [id number] 06:27:00 Test Item Value Reference Range Comments THYROID STIMULATING HORMONE (BEAKER) (test 4.27 uIU/mL 0.35-4.94 bxrf=292) CREATINE KINASE (CK), TOTAL AND [id number] 06:13:00 Test Item Value Reference Range Comments CREATINE KINASE TOTAL (BEAKER) (test made=869) 53 U/L 29-200 CREATINE KINASE-MB (BEAKER) (test prsj=357) 3.9 ng/mL 0.0-6.6 CREATINE KINASE-MB INDEX (BEAKER) (test ejdr=688) 7.4 % CK-MB Reference Range:<6.7 Normal6.7-10.0 Borderline>10.0 AbnormalTROPONIN [id number] 06:13:00 Test Item Value Reference Range Comments TROPONIN I (BEAKER) (test cmpw=373) < ng/mL 0.00-0.03 Troponin I (TnI) levels [...] acidosis, acute neurological disease, and persistent tachyarrhythmia.CALCIUM, [id number] 06:13:00 Test Item Value Reference Range Comments CALCIUM IONIZED (BEAKER) (test tamg=438) 1.17 mmol/L 1.12-1.27 PH, BLOOD (BEAKER) (test bzln=4805) 7.33 [id number] 06:05:00 Test Item Value Reference Range Comments PHOSPHORUS (BEAKER) (test obgo=930) 4.1 mg/dL 2.3-4.7 [id number] 06:05:00 Test Item Value Reference Range Comments MAGNESIUM (BEAKER) (test wwaq=503) 2.0 mg/dL 1.6-2.6 CBC W/PLT COUNT & AUTO [id number] 05:44:00 Test Item Value Reference Range Comments WHITE BLOOD CELL COUNT (BEAKER) (test hqtg=508) 7.1 K/ L 3.5-10.5 RED BLOOD CELL COUNT (BEAKER) (test iggt=233) 4.23 M/ L 3.93-5.22 HEMOGLOBIN (BEAKER) (test vstw=014) 11.6 GM/DL 11.2-15.7 HEMATOCRIT (BEAKER) (test fkcf=772) 37.2 % 34.1-44.9 MEAN CORPUSCULAR VOLUME (BEAKER) (test trky=507) 87.9 fL 79.4-94.8 MEAN CORPUSCULAR HEMOGLOBIN (BEAKER) (test 27.4 pg 25.6-32.2 hbba=857) MEAN CORPUSCULAR HEMOGLOBIN CONC (BEAKER) (test 31.2 GM/DL 32.2-35.5 pbci=295) RED CELL DISTRIBUTION WIDTH (BEAKER) (test 14.4 % 11.7-14.4 narm=159) PLATELET COUNT (BEAKER) (test sxbv=412) 215 K/CU MM 150-450 MEAN PLATELET VOLUME (BEAKER) (test gljg=159) 10.0 fL 9.4-12.3 NUCLEATED RED BLOOD CELLS (BEAKER) (test 0 /100 WBC 0-0 ptqc=061) NEUTROPHILS RELATIVE PERCENT (BEAKER) (test 54 % acdy=613) LYMPHOCYTES RELATIVE PERCENT (BEAKER) (test 35 % pmdi=386) MONOCYTES RELATIVE PERCENT (BEAKER) (test 8 % vxhn=289) EOSINOPHILS RELATIVE PERCENT (BEAKER) (test 2 % avuu=108) BASOPHILS RELATIVE PERCENT (BEAKER) (test 1 % eptl=809) NEUTROPHILS ABSOLUTE COUNT (BEAKER) (test 3.79 K/ L 1.56-6.13 lbtu=520) LYMPHOCYTES ABSOLUTE COUNT (BEAKER) (test 2.50 K/ L 1.18-3.74 pbir=280) MONOCYTES ABSOLUTE COUNT (BEAKER) (test 0.57 K/ L 0.24-0.36 bheg=154) EOSINOPHILS ABSOLUTE COUNT (BEAKER) (test 0.15 K/ L 0.04-0.36 fxke=651) BASOPHILS ABSOLUTE COUNT (BEAKER) (test 0.04 K/ L 0.01-0.08 euwa=786) IMMATURE GRANULOCYTES-RELATIVE PERCENT (BEAKER) 0 % 0-1 (test evut=2188) TROPONIN [id number] 01:50:00 Test Item Value Reference Range Comments TROPONIN I (BEAKER) (test tlrx=854) 0.02 ng/mL 0.00-0.03 Troponin I (TnI) levels [...] acute neurological disease, and persistent tachyarrhythmia.BASIC METABOLIC [id number] 22:36:00 Test Item Value Reference Range Comments SODIUM (BEAKER) (test 137 meq/L 136-145 vldl=318) POTASSIUM (BEAKER) (test 4.9 meq/L 3.5-5.1 Specimen slightly ylzn=739) hemolyzed CHLORIDE (BEAKER) (test 106 meq/L 98-107 rawu=280) CO2 (BEAKER) (test 22 meq/L 22-29 bedb=089) BLOOD UREA NITROGEN 13 mg/dL 7-21 (BEAKER) (test antd=015) CREATININE (BEAKER) (test 0.72 mg/dL 0.57-1.25 Specimen slightly bthu=480) hemolyzed GLUCOSE RANDOM (BEAKER) 100 mg/dL 70-105 (test vigj=011) CALCIUM (BEAKER) (test 8.6 mg/dL 8.4-10.2 vltn=751) EGFR (BEAKER) (test 83 mL/min/1.73 sq m ESTIMATED GFR IS NOT ddgd=3228) ACCURATE CREATININE CLEARANCE IN PREDICTING GLOMERULAR FILTRATION RATE. ESTIMATED GFR IS NOT APPLICABLE FOR DIALYSIS PATIENTS. CREATINE KINASE (CK), TOTAL AND [id number] 21:46:00 Test Item Value Reference Range Comments CREATINE KINASE TOTAL (BEAKER) (test rcxj=070) 82 U/L 29-200 CREATINE KINASE-MB (BEAKER) (test iikj=030) 6.0 ng/mL 0.0-6.6 CREATINE KINASE-MB INDEX (BEAKER) (test pavs=885) 7.3 % CK-MB Reference Range:<6.7 Normal6.7-10.0 Borderline>10.0 AbnormalPT/[id number] 21:28:00 Test Item Value Reference Range Comments PROTIME (BEAKER) (test ydyu=869) 14.5 seconds 11.7-14.7 INR (BEAKER) (test iexb=470) 1.1 <=5.9 PARTIAL THROMBOPLASTIN TIME (BEAKER) (test 29.0 seconds 22.5-36.0 afxh=815) RECOMMENDED COUMADIN/WARFARIN INR THERAPY RANGESSTANDARD DOSE: 2.0 - 3.0 Includes: PROPHYLAXIS forvenous thrombosis, systemic embolization; TREATMENT for venous thrombosis and/or pulmonary embolus.HIGH RISK: Target INR is 2.5-3.5 for patients with mechanical heart valves.RAD, CHEST, 1 VIEW, NON [id number] 20:22:00Reason for exam:->SOBShould this be performed [...] There is no acute bony abnormality. Signed: Cash Mercado Verified Date /Time: 05/24/2018 20:22:32 Reading Location: [address] Reading Room
[2018-08-15] MEDS ORDERED: IPRATROPIUM BROM 0.5MG/2.5ML ONE ×2 (21:39→23:35)
[2018-08-15] MEDS ORDERED: LEVALBUTEROL 1.25 MG/3 ML NEB ONE ×2 (21:39→23:35)
[2018-08-15 21:44] LABS: Absolute Lymphocytes (CBC) 2.8 K/uL (0.7-4.9); Absolute Monocytes 0.9 K/uL (0.1-1.3); Absolute Neutrophil 9.3 K/uL (1.8-8.0); Basophils % 0.8 % (0-1.3); Eosinophils % 0.2 % (0-4.4); Hematocrit 36.9 % (36.0-45.0); Lymphocytes % 21.5 % (15.3-44.8); MCH 28.9 pg (27.0-35.0); MCV 86.7 fL (80-100); Monocytes % 6.7 % (3.3-12.3); RBC Red Blood Cell Count 4.25 M/uL (3.86-4.86)
[2018-08-15 22:00] LABS: BUN Blood Urea Nitrogen 14 mg/dL (7-18); Bicarbonate 24 mmol/L (21-32); Glucose Level 136 mg/dL (74-106); NT PRO-BNP 42 pg/mL (<125); Potassium 4.1 mmol/L (3.5-5.1); Sodium Level 128 mmol/L (136-145); Troponin (Emerg Dept Use Only) < 0.02 ng/mL (0.0-0.045)
[2018-08-15] MEDS ORDERED: MAGNESIUM SULFATE 1 gm IVPB 1 GM/100 ML BAG IV ONE (22:00)
[2018-08-15] MEDS ORDERED: METHYLPREDNISOLONE 125 MG INJ ONE (22:00)
[2018-08-15] MEDS ORDERED: NA CHLORIDE 0.9% 500 ML ONE (22:00)
--- NOTE | 2018-08-15 23:24 | EDPHYS ---
Physician Documentation [facility] Name: Ansley Henderson Age: 57 yrs Sex: Female : 1960 Arrival Date: 08/15/2018 Time: 21:19 Bed 4 Private MD: ED Physician Jose Mcmahon HPI: 08/15 21:27 This 57 yrs old Female presents to ER via Unassigned with complaints of rn cough/sob. 21:27 The patient has shortness of breath at rest. Onset: The symptoms/episode began/occurred rn 3 day(s) ago. Duration: The symptoms are continuous. The patient's shortness of breath is aggravated by coughing, light activity, talking, walking. Severity of symptoms: At their worst the symptoms were moderate in the emergency department the symptoms have improved. The patient has experienced similar episodes in the past. Reports 2-3 days of cough/sob, worse today, no fever, no hemoptysis, on 3L home O2, had respiratory distress, EMS gave albuterol/atrovent, with some improvement but still sob. . Historical: - Allergies: 22: No Known Allergies; aj1 - Home Meds: 22:01 lisinopril 20 mg Oral tab 1 tab once daily [Active]; prednisone 20 mg Oral tab 1 tab 2 aj1 times per day [Active]; aspirin 81 mg Oral TbEC 1 tab once daily [Active]; tiotropium bromide inhalation inhalation once daily [Active]; ranitidine HCl 150 mg Oral tab 1 tab once daily [Active]; albuterol sulfate 90 mcg/actuation Inhl HFAA 1 puff every 4 hours [Active]; - PMHx: 22: CAD; COPD; CVA; HEART STENT; Hypertension; GERD; aj1 - PSHx: 22:01 ; aj1 - Immunization history:: Flu vaccine is not up to date. - Social history:: Smoking status: Patient/guardian denies using tobacco, the patient reports quitting approximately 3 years ago. - Family history:: not pertinent. - Ebola Screening: : Patient denies travel to an Ebola-affected area in the 21 days before illness onset. - Hospitalizations: : No recent hospitalization is reported. ROS: 21:27 Constitutional: Negative for fever, chills, and weight loss, Eyes: Negative for injury, rn pain, redness, and discharge, Neck: Negative for injury, pain, and swelling, Cardiovascular: Negative for edema, Respiratory: + sob and cough Abdomen/GI: Negative for abdominal pain, nausea, vomiting, diarrhea, and constipation, MS/Extremity: Negative for injury and deformity, Skin: Negative for injury, rash, and discoloration, Neuro: Negative for headache, numbness, tingling, and seizure. Exam: 21:27 Constitutional: This is a well developed, well nourished patient who is awake, alert, rn mild tachypnea Head/Face: Normocephalic, atraumatic. ENT: no stridor Cardiovascular: irregular rhythm, normal rate Respiratory: + coarse bilateral breath sounds, + diffuse wheezing, + moderate tachypnea, speaking 5 wors sentences Abdomen/GI: Soft, non-tender, with normal bowel sounds. No distension or tympany. No guarding or rebound. No evidence of tenderness throughout. MS/ Extremity: Pulses equal, no cyanosis. Neurovascular intact. Full, normal range of motion. Equal circumference. Neuro: Awake and alert, GCS 15, oriented to person, place, time, and situation. Cranial nerves II-XII grossly intact. Motor strength 5/5 in all extremities. Sensory grossly intact. Vital Signs: 21:25 BP 130 / 72; Pulse 87; Resp 22; Temp 98.7(O); Pulse Ox 93% on R/A; Weight 68.04 kg (R); aj1 Height 5 ft. 1 in. (154.94 cm) (R); 21:30 Resp 16; Pulse Ox 98% on 3 lpm NC; aj1 22:01 BP 135 / 64; Pulse 108; Resp 15; Pulse Ox 99% on Nebulizer Mask; aj1 23:20 BP 160 / 89; Pulse 102; Resp 23; Pulse Ox 96% on 3 lpm NC; ak1 23:45 BP 136 / 60; Pulse 110; Resp 21; Temp 98.7; Pulse Ox 96% on Nebulizer Mask; ak1 08/16 00:34 BP 124 / 58; Pulse 92; Resp 19; Temp 98.7; Pulse Ox 98% on 3 lpm NC; Pain 0/10; ak1 08/15 21:25 Body Mass Index 28.34 (68.04 kg, 154.94 cm) aj MDM: 08/15 21:20 Patient medically screened. rn 23:22 Differential diagnosis: Chronic Obstructive Pulmonary Disease pneumonia, Pneumothorax rn pulmonary edema. Data reviewed: vital signs, nurses notes, lab test result(s), EKG, radiologic studies, plain films, and as a result, I will admit patient. Counseling: I had a detailed discussion with the patient and/or guardian regarding: the historical points, exam findings, and any diagnostic results supporting the discharge/admit diagnosis, lab results, radiology results, the need for further work-up and treatment in the hospital. Admission orders: after a detailed discussion of the patient's condition and case, the admit orders are written by me. 08/15 21:25 Order name: Blood Culture Adult (2) rn 08/15 21:25 Order name: BMP rn 08/15 21:25 Order name: CBC with Diff rn 08/15 21:25 Order name: NT PRO-BNP rn 08/15 21:25 Order name: Troponin (emerg Dept Use Only) rn 08/15 21:45 Order name: CBC with Automated Diff; Complete Time: 23:12 EDMS 08/15 21:25 Order name: XRAY CXR (1 view) rn 08/15 22:00 Order name: Basic Metabolic Panel; Complete Time: 23:12 EDMS 08/15 22:00 Order name: Troponin (Emerg Dept Use Only); Complete Time: 23:12 EDMS 08/15 22:00 Order name: NT PRO-BNP; Complete Time: 23:12 EDMS 08/15 21:25 Order name: EKG; Complete Time: 21:26 rn 08/15 21:25 Order name: Cardiac monitoring; Complete Time: 21:42 rn 08/15 21:25 Order name: EKG - Nurse/Tech; Complete Time: 21:42 rn 08/15 21:25 Order name: IV Saline Lock; Complete Time: 21:42 rn 08/15 21:25 Order name: Labs collected and sent; Complete Time: 21:42 rn 08/15 21:25 Order name: O2 Per Protocol; Complete Time: 21:42 rn 08/15 21:25 Order name: O2 Sat Monitoring; Complete Time: 21:42 rn Administered Medications: 21:25 Drug: Xopenex (3) 1.25 mg Route: Inhalation; aj1 22:00 Drug: SOLU-Medrol 125 mg Route: IVP; Site: right antecubital; aj1 23:52 Follow up: Response: No adverse reaction ak1 22:00 Drug: Magnesium Sulfate 1 grams Route: IVPB; Infused Over: 1 hrs; Site: right aj1 antecubital; 23:38 Follow up: IV Status: Completed infusion ak1 22:00 Drug: NS 0.9% 500 ml Route: IV; Rate: bolus; Site: right antecubital; aj1 23:37 Follow up: IV Status: Completed infusion ak1 23:36 Drug: Xopenex 1.25 mg Route: Inhalation; ak1 23:36 Drug: AtroVENT Aerosol 0.5 mg Route: Inhalation; ak1 Disposition: 08/15/18 23:23 Hospitalization ordered by Jacinda Markham for Inpatient Admission. Preliminary diagnosis is Chronic obstructive pulmonary disease with (acute) exacerbation. - Bed requested for Telemetry/MedSurg (Inpatient). - Status is Inpatient Admission. ak1 - Condition is Stable. - Problem is an acute exacerbation. - Symptoms have improved. UTI on Admission? No Signatures: Dispatcher [employer] EDMS Angelica Padron RN RN aj1 Yoko Reaves RN RN kl Nieto, Roman, MD MD rn Krenek, Amber, RN RN ak Corrections: (The following items were deleted from the chart) 08/16 00:07 08/15 23:23 Hospitalization Ordered by Jacinda Markham MD for Inpatient Admission. kl Preliminary diagnosis is Chronic obstructive pulmonary disease with (acute) exacerbation. Bed requested for Telemetry/MedSurg (Inpatient). Status is Inpatient Admission. Condition is Stable. Problem is an acute exacerbation. Symptoms have improved. UTI on Admission? No. rn 08/16 01:20 00:07 08/15/2018 23:23 Hospitalization Ordered by Jacinda Markham MD for Inpatient ak1 Admission. Preliminary diagnosis is Chronic obstructive pulmonary disease with (acute) exacerbation. Bed requested for Telemetry/MedSurg (Inpatient). Status is Inpatient Admission. Condition is Stable. Problem is an acute exacerbation. Symptoms have improved. UTI on Admission? No. kl
--- NOTE | 2018-08-15 23:24 | ER ---
Nurse's Notes [facility] Name: Ansley Henderson Age: 57 yrs Sex: Female : 1960 Arrival Date: 08/15/2018 Time: 21:19 Bed 4 Private MD: Diagnosis: Chronic obstructive pulmonary disease with (acute) exacerbation Presentation: 08/15 21:25 Presenting complaint: Patient states: Shortness of breath for the past 3 days, today aj1 she starting having chest pain as well. Patient wears O2 \T\ 3L per nc at home. EMS personnel states that her O2 saturation was 98% on their arrival. Albuterol and atrovent nebulizer treatments given en route. Breath sounds with wheezing bilaterally. 21:25 Transition of care: patient was not received from another setting of care. Onset of aj1 symptoms was August 14, 2018. Risk Assessment: Do you want to hurt yourself or someone else? Patient reports no desire to harm self or others. Initial Sepsis Screen: Does the patient meet any 2 criteria? RR > 20 per min. No. Patient's initial sepsis screen is negative. Does the patient have a suspected source of infection? Yes: Productive cough/pneumonia. Care prior to arrival: None. 21:25 Method Of Arrival: EMS: [facility] aj1 21:25 Acuity: ENMANUEL 3 aj1 Triage Assessment: 22:01 General: Appears uncomfortable, Behavior is calm, cooperative, appropriate for age. aj1 Pain: Complains of pain in chest Pain currently is 5 out of 10 on a pain scale. Historical: - Allergies: 22: No Known Allergies; aj1 - Home Meds: 22: lisinopril 20 mg Oral tab 1 tab once daily [Active]; prednisone 20 mg Oral tab 1 tab 2 aj1 times per day [Active]; aspirin 81 mg Oral TbEC 1 tab once daily [Active]; tiotropium bromide inhalation inhalation once daily [Active]; ranitidine HCl 150 mg Oral tab 1 tab once daily [Active]; albuterol sulfate 90 mcg/actuation Inhl HFAA 1 puff every 4 hours [Active]; - PMHx: 22:01 CAD; COPD; CVA; HEART STENT; Hypertension; GERD; aj1 - PSHx: 22:01 ; aj1 - Immunization history:: Flu vaccine is not up to date. - Social history:: Smoking status: Patient/guardian denies using tobacco, the patient reports quitting approximately 3 years ago. - Family history:: not pertinent. - Ebola Screening: : Patient denies travel to an Ebola-affected area in the 21 days before illness onset. - Hospitalizations: : No recent hospitalization is reported. Screenin:30 Abuse screen: Denies threats or abuse. Denies injuries from another. Nutritional aj1 screening: No deficits noted. Tuberculosis screening: No symptoms or risk factors identified. 23:18 Fall Risk None identified. ak1 Assessment: 21:30 General: Appears uncomfortable, Behavior is calm, cooperative, appropriate for age. aj1 Pain: Complains of pain in chest Pain does not radiate. Pain currently is 5 out of 10 on a pain scale. Quality of pain is described as pressure. Neuro: Level of Consciousness is awake, alert, obeys commands, Oriented to person, place, time, situation, Speech sounds hoarse. Cardiovascular: Reports chest pain, shortness of breath, Heart tones S1 S2 present Patient's skin is warm and dry. Rhythm is regular. Respiratory: Reports shortness of breath at rest cough that is hacking, persistent Airway is patent Respiratory effort is even, unlabored, Respiratory pattern is regular, symmetrical, Breath sounds with wheezes bilaterally. Onset: The symptoms/episode began/occurred 3 days ago, the patient has moderate shortness of breath. GI: No signs and/or symptoms were reported involving the gastrointestinal system. : No signs and/or symptoms were reported regarding the genitourinary system. EENT: No signs and/or symptoms were reported regarding the EENT system. Derm: No signs and/or symptoms reported regarding the dermatologic system. Skin is pink, warm \T\ dry. normal. Musculoskeletal: No signs and/or symptoms reported regarding the musculoskeletal system. Circulation, motion, and sensation intact. 22:45 Reassessment: Patient appears in no apparent distress at this time. No changes from ak1 previously documented assessment. 23:20 Reassessment: pt with increased SOB and coughing after using restroom. pt informed of ak1 need for admit. Vital Signs: 21:25 BP 130 / 72; Pulse 87; Resp 22; Temp 98.7(O); Pulse Ox 93% on R/A; Weight 68.04 kg (R); aj1 Height 5 ft. 1 in. (154.94 cm) (R); 21:30 Resp 16; Pulse Ox 98% on 3 lpm NC; aj1 22:01 BP 135 / 64; Pulse 108; Resp 15; Pulse Ox 99% on Nebulizer Mask; aj1 23:20 BP 160 / 89; Pulse 102; Resp 23; Pulse Ox 96% on 3 lpm NC; ak1 23:45 BP 136 / 60; Pulse 110; Resp 21; Temp 98.7; Pulse Ox 96% on Nebulizer Mask; ak1 12 00:34 BP 124 / 58; Pulse 92; Resp 19; Temp 98.7; Pulse Ox 98% on 3 lpm NC; Pain 0/10; ak1 08/15 21:25 Body Mass Index 28.34 (68.04 kg, 154.94 cm) aj1 ED Course: 08/15 21:19 Patient arrived in ED. em1 21:20 Jose Mcmahon MD is Attending Physician. rn 21:30 Patient has correct armband on for positive identification. Bed in low position. Call aj1 light in reach. Side rails up X 1. guest services assistant on. Pulse ox on. NIBP on. 21:30 No provider procedures requiring assistance completed. Initial lab(s) drawn, by ky, aj1 sent to lab. Inserted saline lock: 20 gauge in right antecubital area, using aseptic technique. ,using aseptic technique. by MESHA Salas Blood collected. 21:42 Angelica Padron, MESHA is Primary Nurse. aj1 21:47 Triage completed. aj1 23:18 Arm band placed on Patient placed in an exam room, on a stretcher, on oxygen, on ak1 manager cardiac, on pulse oximetry, Patient notified of wait time. 23:23 Jacinda Markham MD is Hospitalizing Provider. rn 23:37 Patient admitted, IV remains in place. ak1 Administered Medications: 21:25 Drug: Xopenex (3) 1.25 mg Route: Inhalation; aj1 22:00 Drug: SOLU-Medrol 125 mg Route: IVP; Site: right antecubital; aj1 23:52 Follow up: Response: No adverse reaction ak1 22:00 Drug: Magnesium Sulfate 1 grams Route: IVPB; Infused Over: 1 hrs; Site: right aj1 antecubital; 23:38 Follow up: IV Status: Completed infusion ak1 22:00 Drug: NS 0.9% 500 ml Route: IV; Rate: bolus; Site: right antecubital; aj1 23:37 Follow up: IV Status: Completed infusion ak1 23:36 Drug: Xopenex 1.25 mg Route: Inhalation; ak1 23:36 Drug: AtroVENT Aerosol 0.5 mg Route: Inhalation; ak1 Outcome: 23:23 Decision to Hospitalize by Provider. rn 23:36 Condition: stable ak1 23:36 Instructed on the need for admit. 08/16 00:23 Admitted to Med/surg accompanied by tech, via wheelchair, room 425, with oxygen, with ak1 chart. 01:20 Patient left the ED. ak1 Signatures: Angelica Padron RN RN aj1 Jose Mcmahon MD MD rn Martinez, Eric em1 Vicki Luis RN RN ak1 Corrections: (The following items were deleted from the chart) 08/15 21:49 21:25 BP 130 / 72; Pulse 87bpm; Resp 32bpm; Pulse Ox 93% RA; Temp 98.7F Oral; 68.04 kg aj1 Reported; Height 5 ft. 1 in. Reported; BMI: 28.3; aj1
[2018-08-15] MEDS ORDERED: NA CHLORIDE 0.9% 1,000 ML IV SCH (23:45)
[2018-08-15] MEDS ORDERED: MAGNESIUM HYDROXIDE 8% 30 ML PO PRN (23:54)
[2018-08-15] MEDS ORDERED: ALBUTEROL 2.5 MG/3 ML NEB SOL NEB PRN (23:54)
[2018-08-15] MEDS ORDERED: ACETAMINOPHEN 500 MG TAB PO PRN (23:54)
[2018-08-15] MEDS ORDERED: ONDANSETRON 4 MG/2 ML VIAL IV PRN (23:54)
[2018-08-16 01:47] VITALS: BMI 25.2
[2018-08-16] MEDS ORDERED: PANTOPRAZOLE 40 MG INJ IVP ONE (01:51)
[2018-08-16] MEDS ORDERED: SODIUM CHLORIDE 0.9% 10ML INJ IV PRN (01:51)
[2018-08-16] MEDS ORDERED: IBUPROFEN 200 MG TAB PO ONE (01:51)
[2018-08-16] MEDS ORDERED: IPRATROPIUM BROM 0.5MG/2.5ML NEB SCH (02:00)
[2018-08-16] MEDS ORDERED: ALBUTEROL 2.5 MG/3 ML NEB SOL NEB SCH (02:00)
[2018-08-16] MEDS ORDERED: NA CHLORIDE 0.9% 1,000 ML IV SCH (02:00)
[2018-08-16] MEDS: IPRATROPIUM BROM 0.5MG/2.5ML NEB SCH ×4 (03:10→20:11)
[2018-08-16 04:39] LABS: Urine Appearance CLEAR; Urine Bilirubin NEGATIVE (NEG); Urine Blood NEGATIVE (NEG); Urine Color YELLOW; Urine Glucose NEGATIVE (NEG); Urine Protein NEGATIVE (NEG); Urine Specific Gravity <=1.005 (1.005-1.030); Urine Urobilinogen 0.2 mg/dL (0.2-1.0)
[2018-08-16 05:42] LABS: Urine Microscopic Reflex NO UMIC
[2018-08-16] MEDS: PANTOPRAZOLE 40MG TABLET PO SCH (06:12)
[2018-08-16] MEDS: METHYLPREDNISOLONE 125 MG INJ IV SCH ×3 (06:12→17:18)
--- NOTE | 2018-08-16 06:16 | EKG ---
Test Date: 2018-08-15 Test Time: 21:22:35 Public Health Social Worker: MEASUREMENT RESULTS: Intervals: Rate: 87 [place]: 146 QRSD: 78 QT: 336 QTc: 404 [place]: P: 68 [place]: 146 QRS: 75 T: 81 INTERPRETIVE STATEMENTS: Sinus rhythm Normal ECG Compared to ECG 08/01/2018 08:56:39 Sinus tachycardia no longer present ST (T wave) deviation no longer present Electronically Signed On 08-16-18 06:15:41 OFFICE REP by Duc Winslow
[2018-08-16 07:16] LABS: Absolute Lymphocytes (CBC) 0.7 K/uL (0.7-4.9); Absolute Monocytes 0.1 K/uL (0.1-1.3); Absolute Neutrophil 6.6 K/uL (1.8-8.0); Basophils % 0.4 % (0-1.3); Hematocrit 34.8 % (36.0-45.0); Lymphocytes % 9.3 % (15.3-44.8); MCH 29.8 pg (27.0-35.0); MCV 87.3 fL (80-100); MPV 8.1 fL (7.6-11.3); RBC Red Blood Cell Count 3.98 M/uL (3.86-4.86)
[2018-08-16 07:35] LABS: Albumin 3.3 g/dL (3.4-5.0); Bilirubin Total 0.3 mg/dL (0.2-1.0); Phosphorus 4.3 mg/dL (2.5-4.9); Potassium 4.7 mmol/L (3.5-5.1); Protein, Total 6.9 g/dL (6.4-8.2)
--- NOTE | 2018-08-16 08:29 | RAD REPORT ---
EXAM DESCRIPTION: RAD - Chest Single View - 08/15/2018 10:04 pm CLINICAL HISTORY: Persistent shortness of breath COMPARISON: July 30 TECHNIQUE: AP portable chest image was obtained 2159 hours . FINDINGS: Motion degradation is present accentuating interstitial pattern. No true change from the p rior study suspected. Heart and vasculature are normal. No measurable pleural effusion and no pneumot horax. No acute bony abnormality seen. No acute aortic findings suspected. IMPRESSION: No acute cardiopulmonary process. No significant change from comparison.
[2018-08-16] MEDS ORDERED: OLODATEROL HCL IH SCH (09:00)
[2018-08-16] MEDS ORDERED: RANITIDINE 150 MG TABLET PO SCH (09:00)
[2018-08-16] MEDS ORDERED: TIOTROPIUM BR IH SCH (09:00)
[2018-08-16] MEDS: CEFTRIAXONE/SWI 1gm 1 GM/10 ML SYR IVP SCH ×2 (09:38→20:54)
[2018-08-16] MEDS: ASPIRIN EC 81 MG TAB PO SCH (09:38)
[2018-08-16] MEDS: FAMOTIDINE 20 MG TAB PO SCH (09:38)
[2018-08-16] MEDS: ENOXAPARIN 40 MG/0.4 ML SQ SCH (09:38)
--- NOTE | 2018-08-16 10:14 | P.HP ---
Certification for Inpatient Patient admitted to: Inpatient With expected LOS: >2 Midnights Patient will require the following post-hospital care: None Practitioner: I am a practitioner with admitting privileges, knowledge of patient current condition, hospital course, and medical plan of care. Services: Services provided to patient in accordance with Admission requirements found in Title 42 Section 412.3 of the Code of Federal Regulations Patient History Date of Service: 08/15/18 Reason for admission: COPD exacerbation History of Present Illness: Patient is a 57-year-old female who came into the hospital with shortness of breath. Patient has some difficulty breathing. Was more more short of breath over the last couple of days. Her symptoms progressively worse. Patient was wheezing and she decided to come into the ER for further evaluation. In the ER patient was given nebs, steroids, and antibiotics. Her clinical symptoms have slightly improved. However, she states she is not feeling back to her baseline. He will be admitted to the hospital for further treatment of her COPD exacerbation. Will consult Pulmonary for further evaluation as well. Allergies No Known Allergies Allergy (Verified 08/16/18 01:17) Home Medications: Aspirin [Adult Aspirin] 81 mg PO DAILY 07/31/18 Albuterol Sulfate [Proair Hfa] 2 puff IH Q2H PRN 08/16/18 Ipratropium Neb [Atrovent*] 1 amp IH Q4H PRN 08/16/18 Lisinopril 1 tab PO DAILY 08/16/18 Ranitidine HCl [Heartburn Relief] 1 tab PO DAILY 08/16/18 Tiotropium Br/Olodaterol HCl [Stiolto Respimat Inhal [place]] 2 spray IH DAILY 11/02 Tiotropium [place] [Spiriva Respimat] 2 spray IH DAILY 08/16/18 predniSONE [Deltasone] 20 mg PO BID 08/16/18 - Past Medical/Surgical History Has patient received pneumonia vaccine in the past: No Diabetic: No -: Hypertension -: Coronary artery disease, stent -: COPD -: hx Tobacco abuse -: GERD -: Gastric ulcers -: -: Stent placement Psychosocial/ Personal History: The patient is . She has 5 children. She currently lives by herself. She recently moved to the area from [place]. - Family History Mother Medical History: Heart disease, Cancer - Social History Smoking Status: Former smoker Alcohol use: Yes CD- Drugs: No Caffeine use: Yes Place of Residence: Home Review of Systems 10-point ROS is otherwise unremarkable Physical Examination - Vital Signs Temperature: 97.4 F Blood Pressure: 145/77 Pulse: 91 Respirations: 18 Pulse Ox (%): 96 - Physical Exam General: Alert, In no apparent distress, Oriented x3 HEENT: Atraumatic, PERRLA, Mucous membr. moist/pink, EOMI, Sclerae nonicteric Neck: Supple, 2+ carotid pulse no bruit, No LAD, Without JVD or thyroid abnormality Respiratory: Diminished, Expiratory wheezes Cardiovascular: Regular rate/rhythm, Normal S1 S2, Systolic murmur Gastrointestinal: Normal bowel sounds, Soft and benign, Non-distended, No tenderness, No rebound, No guarding Musculoskeletal: No clubbing, No swelling, No tenderness Integumentary: No rashes Neurological: Normal gait, Normal speech, Normal strength at 5/5 x4 extr, Normal tone, Sensation intact, Cranial nerves 3-12 intact, Normal reflexes 2+, Normal affect Lymphatics: No axilla or inguinal lymphadenopathy - Studies Laboratory Data (last 24 hrs) 08/15/18 21:30: WBC 13.2 H, Hgb 12.3, Hct 36.9, Plt Count 349 08/15/18 21:30: Sodium 128 L, Potassium 4.1, BUN 14, Creatinine 0.70, Glucose 136 H Assessment & Plan - Problems (Diagnosis) (1) COPD with acute exacerbation Current Visit: Yes Status: Acute (2) Coronary artery disease Onset Date: 01/20/17 Current Visit: No Status: Chronic Qualifiers: Coronary Disease-Associated Artery/Lesion type: [place] artery (3) Former smoker Onset Date: 01/20/17 Current Visit: No Status: Chronic (4) Hypertension Onset Date: 01/20/17 Current Visit: No Status: Chronic Qualifiers: Hypertension type: essential hypertension - Plan -nebs, steroids, and antibiotics -O2 per protocol. -Echo to evaluate right sided pressures -repeat chest x-ray -pulmonary consultation Discharge Plan: Home Plan to discharge in: Greater than 2 days - Advance Directives Does patient have a Living Will: No Does patient have a Durable POA for Healthcare: Yes - Code Status/Comfort Care Code Status Assessed: Yes Code Status: Full Code Critical Care: No Time Spent Managing PTS Care (In Minutes): 50
--- NOTE | 2018-08-16 19:21 | PN ---
Date of Progress Note: 08/16/2018 Subjective: Patient seen and examined. Chart reviewed and case discussed with RN. Patient does rep ort some significant shortness of breath and wheezing. Still having some cough. Review of Systems: Negative except as above. Medications: List reviewed. Physical Examination: Vital Signs: Temperature 98, heart rate 80, blood pressure 164/68, respirations 18, O2 97% on 3 L vi a nasal cannula. General: Awake, alert, oriented x3, in some mild respiratory distress, ill-appearing female. CV: S1, S2. Regular rate and rhythm. Peripheral pulses present. Respiratory: Diminished breath sounds. Diffuse wheezing heard throughout. The patient is not tachy pneic. Not using any 6 accessory muscles. Gastrointestinal: Abdomen is soft, nontender, nondistended. Positive bowel sounds. Extremities: No clubbing, cyanosis, or edema. Neuro: Nonfocal. Cranial nerves 2-12 intact grossly. No focal neurological deficits. Skin: No rashes. Normal skin turgor. Laboratory Data: Sodium 136, potassium 4.7, chloride 102, CO2 27, BUN 13, creatinine 0.7, glucose 18 4, calcium 9.2, phosphorus 4.3, magnesium 2. Troponin less than 0.02 x2. Albumin 3.3, cholesterol o f 210, HDL 97. WBC 7.4, H and H 11.9 and 34.8, platelets 319, neutrophils 89.3%. UA is negative. B lood cultures and sputum cultures pending. Assessment And Plan: A 57-year-old female with: 1.Acute chronic obstructive pulmonary disease exacerbation. Continue with nebulizer treatments and IV steroids. Continue to monitor pulse ox. 2.Coronary artery disease, [place] artery and [place] heart without angina. 3.Essential hypertension, stable. We will resume home medications as appropriate. 4.Gastroesophageal reflux disease without esophagitis. Continue ranitidine. Plan: Consult Pulmonology. Continue to monitor. Likely discharge in the next 24-48 hours depending on clinical response. Chest x-ray is clear, personally reviewed. /NATALY Voice ID: [id number] Report ID: [id number]
[2018-08-17] MEDS: METHYLPREDNISOLONE 125 MG INJ IV SCH ×2 (00:54→06:42)
[2018-08-17] MEDS: IPRATROPIUM BROM 0.5MG/2.5ML NEB SCH ×3 (02:00→13:47)
[2018-08-17 04:58] LABS: Absolute Lymphocytes (CBC) 1.1 K/uL (0.7-4.9); Absolute Monocytes 0.6 K/uL (0.1-1.3); Absolute Neutrophil 14.7 K/uL (1.8-8.0); Basophils % 0.1 % (0-1.3); Hematocrit 34.2 % (36.0-45.0); Lymphocytes % 6.5 % (15.3-44.8); MCH 29.3 pg (27.0-35.0); MCV 87.5 fL (80-100); MPV 8.4 fL (7.6-11.3); Monocytes % 3.6 % (3.3-12.3); RBC Red Blood Cell Count 3.91 M/uL (3.86-4.86)
[2018-08-17 05:14] LABS: Albumin 3.1 g/dL (3.4-5.0); Bilirubin Total 0.2 mg/dL (0.2-1.0); Potassium 4.5 mmol/L (3.5-5.1); Protein, Total 6.3 g/dL (6.4-8.2)
[2018-08-17 05:56] LABS: Blood Morphology Comment NOT SEEN (NOT SEEN); Platelet Estimate ADEQ; Urine White Blood Cell Casts OK
[2018-08-17] MEDS: PANTOPRAZOLE 40MG TABLET PO SCH (06:43)
[2018-08-17] MEDS ORDERED: GUAIFENESIN/CODEINE 5ML UCUP PO PRN (08:22)
[2018-08-17] MEDS: ASPIRIN EC 81 MG TAB PO SCH (08:36)
[2018-08-17] MEDS: FAMOTIDINE 20 MG TAB PO SCH (08:36)
[2018-08-17] MEDS: CEFTRIAXONE/SWI 1gm 1 GM/10 ML SYR IVP SCH (08:37)
[2018-08-17] MEDS: ENOXAPARIN 40 MG/0.4 ML SQ SCH (08:37)
[2018-08-17 08:56] VITALS: O2SAT 97
[2018-08-17] MEDS ORDERED: THEOPHYLLINE SR 100 MG TAB PO SCH (09:00)
[2018-08-17] MEDS ORDERED: predniSONE 20 MG TAB PO SCH (09:00)
[2018-08-17] MEDS ORDERED: LISINOPRIL 20 MG TAB PO SCH (09:00)
--- NOTE | 2018-08-17 12:21 | P.CNS ---
Date of Consult: 08/17/18 Reason for Consult: COPD exacerbation Chief Complaint: COPD exacerbation History of Present Illness: Patient is 57 years of age recurrent hospital admissions admitted yet again she was just here about 2 weeks ago admitted with worsening shortness of breath. Patient has recurrent hospital admissions apparently she ran out of steroids and out call my office wants refills on her medications Allergies No Known Allergies Allergy (Verified 08/16/18 01:17) Home Medications: Aspirin [Adult Aspirin] 81 mg PO DAILY 07/31/18 Albuterol Sulfate [Proair Hfa] 2 puff IH Q2H PRN 08/16/18 Ipratropium Neb [Atrovent*] 1 amp IH Q4H PRN 08/16/18 Lisinopril 1 tab PO DAILY 08/16/18 Ranitidine HCl [Heartburn Relief] 1 tab PO DAILY 08/16/18 Tiotropium Br/Olodaterol HCl [Stiolto Respimat Inhal [place]] 2 spray IH DAILY 11/02 Tiotropium [place] [Spiriva Respimat] 2 spray IH DAILY 08/16/18 predniSONE [Deltasone] 20 mg PO BID 08/16/18 - Past Medical/Surgical History Diabetic: No -: Hypertension -: Coronary artery disease, stent -: COPD -: hx Tobacco abuse -: GERD -: Gastric ulcers -: -: Stent placement Psychosocial/ Personal History: The patient is . She has 5 children. She currently lives by herself. She recently moved to the area from [place]. - Family History Mother Medical History: Heart disease, Cancer - Social History Smoking Status: Unknown if ever smoked Alcohol use: Yes CD- Drugs: No Caffeine use: Yes Place of Residence: Home Review of Systems 10-point ROS is otherwise unremarkable Physical Examination Temp Pulse Resp BP Pulse Ox 97.6 F 89 24 H 145/65 H 98 08/17/18 08:00 08/17/18 08:35 08/17/18 08:00 08/17/18 08:35 08/17/18 08:00 General: Alert, Oriented x3 Neck: Supple Respiratory: Clear to auscultation bilaterally Cardiovascular: No edema, Regular rate/rhythm - Problems (1) COPD (chronic obstructive pulmonary disease) Onset Date: 01/20/17 Current Visit: No Status: Acute Plan: Patient is 57 years of age with a history of COPD recurrent admissions finally she has a problem with ID unable to obtain 1 due to problems with a certificate and appeared in the hospital yet again she does use Stiolto at home I recommend adding theophylline 200 mg twice a day resume prednisone 10 mg once a day is no evidence of infection chest x-rays clear discharge Qualifiers: COPD type: COPD with acute exacerbation Qualified Code(s): J44.1 - Chronic obstructive pulmonary disease with (acute) exacerbation
[2018-08-17 13:35] VITALS: BP 139/66; TEMP 98
--- NOTE | 2018-08-18 13:16 | DS ---
Date of Discharge: 08/17/2018 Consultants: Dr. Lucero with Pulmonology. Admitting Diagnoses: 1.Acute chronic obstructive pulmonary disease exacerbation. 2.Coronary artery disease, pala artery and pala heart without angina. 3.Essential hypertension. 4.Chronic respiratory failure on home oxygen due to chronic obstructive pulmonary disease. 5.Gastroesophageal reflux disease without esophagitis, on ranitidine. Discharge Diagnoses: 1.Acute chronic obstructive pulmonary disease exacerbation, improved. 2.Coronary artery disease, pala artery and pala heart without angina. 3.Essential hypertension, stable. 4.Gastroesophageal reflux disease without esophagitis, on ranitidine. 5.Chronic respiratory failure, on home O2. Hospital Course: The patient is a 57-year-old female, who was recently discharged from the hospital with similar issues. The patient has difficulty establishing care with primary care physician or [facility] er consultants due to lack of form of identification. The patient does not have an ID and she does n ot have a certificate due to some issues long time ago and is unable to make an ID, therefore, is unable to establish care with PCP or other consultants. The patient runs out of her medications a nd comes to the hospital for refills. The patient was treated with IV steroids, nebulizer treatments . Theophylline was added due to her significant dyspnea even with minimal exertion. The patient did have some improvement in her symptoms. Her sodium levels did improve. She was seen by Dr. Lucero with Pulmonology. Cardiac enzymes were negative. Chest pain with ACS was ruled out. The patient d eveloped some steroid-induced leukocytosis. Her flu screen was also negative. Chest x-ray did not s how any acute infiltrates and does show some chronic changes. The patient was doing well. She was b ack to her baseline. The patient was then discharged in a stable condition. Activity: No strenuous activity. Medications: As per medication reconciliation list. Followup: Follow up with primary care in 2-3 days. Follow up with mill worker, Dr. Lucero in 2 weeks. Return to ER for worsening condition. Social Work to discuss with the patient regarding gett ing ID. Diet: Heart healthy. Physical Examination: General: Awake, alert, oriented x3. No acute distress. CV: S1 and S2. No murmurs. Respiratory: Moving air well bilaterally. No wheezing. Abdomen: Abdomen is soft, nontender, nondistended. Positive bowel sounds. Extremities: No clubbing, cyanosis, or edema. Neurologic: Nonfocal. Total time spent discharging the patient was 33 minutes. /NATALY Voice ID: [id number] Report ID: [id number]
== END 2018-08-17 17:14 | disposition home or self-care (01) | DRG 191 ==
LOC: ER 21:17 → ERHOLD 23:25 → 4TH 08-16 00:38
PROVIDERS: ADMIT Hospitalist; ATTEND Family Medicine
DX: J44.1 Chronic obstructive pulmonary disease with (acute) exacerbation (principal); J96.10 Chronic respiratory failure, unspecified whether with hypoxia or hypercapnia; I10 Essential (primary) hypertension; I25.10 Atherosclerotic heart disease of native coronary artery without angina pectoris; K21.9 Gastro-esophageal reflux disease without esophagitis; Z87.11 Personal history of peptic ulcer disease; Z79.82 Long term (current) use of aspirin; Z95.5 Presence of coronary angioplasty implant and graft; Z87.891 Personal history of nicotine dependence; Z99.81 Dependence on supplemental oxygen
CPT/HCPCS: 36415; 71045; 80048; 80053; 80061; 81003; 83735; 83880; 84100; 84484; 85025; 87040; 87070; 87205; 87804; 93005; 94640; 94760; 96365; 96366; 96375; 99285; C9113; J0696; J1650; J2930; J3475; J7030; J7512

== ENCOUNTER 2020-01-16 01:26 | Emergency (ER) | payer OTHER ==
--- OUTSIDE RECORDS SUMMARY | 2020-01-16 01:28 | XMS REPORT ---
:1960 Author Organization [facility] t Address [address] [place] [address] Care Team Providers Name Role Phone JESE MABRY Liz Unavailable Unavailable Problems This patient has no known problems. Allergies, Adverse Reactions, Alerts This patient has no known allergies or adverse reactions. Medications This patient has no known medications. Results Test Description Test Time Test Comments Text Results Atomic Results Result Comments [facility], [facility], 2018-05-26 16:02:00 ANGELICA Sanchez REPORT PHARM, SPECT PROCEDURE: Rest/Stress MYOCARDIAL PERFUSION SPECT w ith regadenoson\XA9\ CPT CODE: 02353 INDICATION: Chest pain HISTORY: Cardiac ri sk factors: Hypertension, famil y history of early CAD. Other cardiovascular history: No r eported CAD. Recent cardiac symptoms : Chest pain. PROTOCOL: 10.5 m Ci of Tc-99m sestamibi was injecte d iv at rest, and SPECT (tomographic ) images were obtained. Also, 32.4 mC i of Tc-99m sestamibi was injecte d iv at expected peak pharmacologic effect, and gated SPECT images were obtained. PRELIMINARY STRES S TEST DATA FROM NONINVASIVE CARDIO LOGY: Pharmacologic stress was by 10-second iv infusion of 0.4 mg of regadenoson. Radiotracer was injected [address] art of stress. Heart rate was 62 be ats/min at rest and 83 beats/min (51 % of MPHR) at tracer injection. B P was 166/88 mmHg at rest and 170/ 88 mmHg at tracer injection. Stress was stopped for predetermined en dpoint. The patient experienced dysp neo; treatment was not required. Preliminary ECG evaluation r evealed sinus rhythm at rest and no ischemic changes with stress. (Final ECG interpretation and other str ess and monitoring data are reported separately by Cardiology.) IMAGING FINDINGS: Study quali ty is good. Images obtained after rest and stress injections show lalit l LV activity. LV and RV volumes appear normal. Gated images obtaine d at rest after stress show lalit l LV wall motion and thickening. QGS LVEF is 68%. IMPRESSION: 1. No rmal study. 2. Appropriate pharm acologic stress. 3. Normal myocardia l perfusion. 4. Normal restin g LV function. 5. Normal extraca rdiac tracer distribution. There i s flattening of the diaphragms in the unprocessed images consisten t with hyperinflation of the lung d ue to COPD. 6. No previous [facility] study for comparison. NONINVASIV E RISK STRATIFICATION: The above fi ndings are considered low risk (<1% annual mortality rate) based on the following criterion:- Normal or small myocardial perfusion d efect at rest or with stress(JACC. 2012;59(9):857-81.) Signed: Facundo Carpenter MDReport Verified Da te/Time: 05/26/2018 16:02:19 Reading Location: [address] Reading Room Electronical ly signed by: FACUNDO VASQUEZ RD, MD on 05/26/2018 04:02 PM BASIC METABOLIC PANEL 2018-05-26 04:33:00 Test Item Value Reference Range Comments SODIUM (BEAKER) (test code = 135 meq/L 136-145 381) POTASSIUM (BEAKER) (test 4.4 meq/L 3.5-5.1 code = 379) CHLORIDE (BEAKER) (test code 102 meq/L 98-107 = 382) CO2 (BEAKER) (test code = 24 meq/L 22-29 355) BLOOD UREA NITROGEN (BEAKER) 11 mg/dL 7-21 (test code = 354) CREATININE (BEAKER) (test 0.68 mg/dL 0.57-1.25 code = 358) GLUCOSE RANDOM (BEAKER) 96 mg/dL 70-105 (test code = 652) CALCIUM (BEAKER) (test code 9.1 mg/dL 8.4-10.2 = 697) EGFR (BEAKER) (test code = 89 mL/min/1.73 sq m E STIMATED GFR IS NOT 1092) ACCURATE CREA TININE CLEARANCE IN PRE DICTING GLOMERULAR FILTR ATION RATE. ESTIMATED GFR IS NOT APPLICABLE FOR D IALYSIS PATIENTS. CBC (HEMOGRAM ONLY)2018-05-26 04:24:00 Test Item Value Reference Range Comments WHITE BLOOD CELL COUNT (BEAKER) (test code = 6.3 K/ L 3.5 -10.5 775) RED BLOOD CELL COUNT (BEAKER) (test code = 761) 4.07 M/ L 3.93-5.22 HEMOGLOBIN (BEAKER) (test code = 410) 11.1 GM/DL 11.2-15.7 HEMATOCRIT (BEAKER) (test code = 411) 35.9 % 34.1-44.9 MEAN CORPUSCULAR VOLUME (BEAKER) (test code = 88.2 fL 79 .4-94.8 753) MEAN CORPUSCULAR HEMOGLOBIN (BEAKER) (test code 27.3 pg 25.6-32.2 = 751) MEAN CORPUSCULAR HEMOGLOBIN CONC (BEAKER) (test 30.9 GM/DL 32.2-35.5 code = 752) RED CELL DISTRIBUTION WIDTH (BEAKER) (test code 14.1 % 11.7-14.4 = 412) PLATELET COUNT (BEAKER) (test code = 756) 210 K/CU MM 150-45 0 MEAN PLATELET VOLUME (BEAKER) (test code = 754) 9.9 fL 9.4-12.3 NUCLEATED RED BLOOD CELLS (BEAKER) (test code = 0 /100 WBC 0-0 413) MR, MRA, BRAIN, WITHOUT [id number] 22:00:00Reason for exam:->Ischemic Stroke EvaluationFINAL REPORT MR, [...] structures: Normally positioned.Cerebellum and brainstem: Normal.Ventricles: Normal volume.Extra-axial spaces: Unremarkable. Calvarium and skull base: Normal [...] MDReport Verified Date/Time: 05/25/2018 22:00:39 Reading Location: [address] Body Reading Room MR, MRA, NECK, WITHOUT IV [id number] 22:00:00Reason for exam:- >Ischemic Stroke EvaluationFINAL REPORT MR, BRAIN, WITHOUT CONTRAST, [...] structures: Normally positioned.Cerebellum and brainstem: Normal.Ventricles: Normal volume.Extra-axial spaces: Unremarkable. Calvarium and skull base: Normal [...] MDReport Verified Date/Time: 05/25/2018 22:00:39 Reading Location: [address] Body Reading Room MR, BRAIN, WITHOUT [id number] 22:00:00Reason for exam:- >Ischemic Stroke EvaluationFINAL REPORT MR, BRAIN, WITHOUT CONTRAST, [...] structures: Normally positioned.Cerebellum and brainstem: Normal.Ventricles: Normal volume.Extra-axial spaces: Unremarkable. Calvarium and skull base: Normal [...] MDReport Verified Date/Time: 05/25/2018 22:00:39 Reading Location: [facility] C013Y CT Body Reading Room HEMOGLOBIN [id number] 09:45:00 Test Item Value Reference Range Comments HEMOGLOBIN A1C (BEAKER) (test code = 368) 5.4 % 4.3-6. 1 LIPID [id number] 07:58:00 Test Item Value Reference Range Comments TRIGLYCERIDES (BEAKER) (test code = 540) 190 mg/dL CHOLESTEROL (BEAKER) (test code = 631) 170 mg/dL HDL CHOLESTEROL (BEAKER) (test code = 976) 62 mg/dL LDL CHOLESTEROL CALCULATED (BEAKER) (test code = 70 mg/dL 633) Triglyceride Reference Range: Low Risk <150 Borderline 150-199 High Risk 200-499 Very High Risk >=500Cholesterol Reference Range: Low Risk <200 Borderline 200-239 High Risk >240HDL Cholesterol Reference Range: Low Risk >=60 High Risk <40LDL Cholesterol Reference Range: Optimal <100 Near Optimal 100-129 Borderline 130-159 High 160-189 Very High >=190TSH/FREE T4 IF [id number] 06:27:00 Test Item Value Reference Range Comments THYROID STIMULATING HORMONE (BEAKER) (test code 4.27 uIU/mL 0.35-4.94 = 772) CREATINE KINASE (CK), TOTAL AND [id number] 06:13:00 Test Item Value Reference Range Comments CREATINE KINASE TOTAL (BEAKER) (test code = 380) 53 U/L 29-200 CREATINE KINASE-MB (BEAKER) (test code = 750) 3.9 ng/mL 0. 0-6.6 CREATINE KINASE-MB INDEX (BEAKER) (test code = 7.4 % 395) CK-MB Reference Range:<6.7 Normal6.7-10.0 Borderline>10.0 AbnormalTROPONIN [id number] 06:13:00 Test Item Value Reference Range Comments TROPONIN I (BEAKER) (test code = 397) < ng/mL 0.00-0.03 Troponin I (TnI) levels [...] acidosis, acute neurological disease, and persistent tachyarrhythmia.CALCIUM, [id number] 06:13:00 Test Item Value Reference Range Comments CALCIUM IONIZED (BEAKER) (test code = 698) 1.17 mmol/L 1.12- 1.27 PH, BLOOD (BEAKER) (test code = 1810) 7.33 [id number] 06:05:00 Test Item Value Reference Range Comments PHOSPHORUS (BEAKER) (test code = 604) 4.1 mg/dL 2.3-4.7 [id number] 06:05:00 Test Item Value Reference Range Comments MAGNESIUM (BEAKER) (test code = 627) 2.0 mg/dL 1.6-2.6 CBC W/PLT COUNT & AUTO [id number] 05:44:00 Test Item Value Reference Range Comments WHITE BLOOD CELL COUNT (BEAKER) (test code = 7.1 K/ L 3.5 -10.5 775) RED BLOOD CELL COUNT (BEAKER) (test code = 761) 4.23 M/ L 3.93-5.22 HEMOGLOBIN (BEAKER) (test code = 410) 11.6 GM/DL 11.2-15.7 HEMATOCRIT (BEAKER) (test code = 411) 37.2 % 34.1-44.9 MEAN CORPUSCULAR VOLUME (BEAKER) (test code = 87.9 fL 79 .4-94.8 753) MEAN CORPUSCULAR HEMOGLOBIN (BEAKER) (test code 27.4 pg 25.6-32.2 = 751) MEAN CORPUSCULAR HEMOGLOBIN CONC (BEAKER) (test 31.2 GM/DL 32.2-35.5 code = 752) RED CELL DISTRIBUTION WIDTH (BEAKER) (test code 14.4 % 11.7-14.4 = 412) PLATELET COUNT (BEAKER) (test code = 756) 215 K/CU MM 150-45 0 MEAN PLATELET VOLUME (BEAKER) (test code = 754) 10.0 fL 9.4-12.3 NUCLEATED RED BLOOD CELLS (BEAKER) (test code = 0 /100 WBC 0-0 413) NEUTROPHILS RELATIVE PERCENT (BEAKER) (test code 54 % = 429) LYMPHOCYTES RELATIVE PERCENT (BEAKER) (test code 35 % = 430) MONOCYTES RELATIVE PERCENT (BEAKER) (test code = 8 % 431) EOSINOPHILS RELATIVE PERCENT (BEAKER) (test code 2 % = 432) BASOPHILS RELATIVE PERCENT (BEAKER) (test code = 1 % 437) NEUTROPHILS ABSOLUTE COUNT (BEAKER) (test code = 3.79 K/ L 1.56-6.13 670) LYMPHOCYTES ABSOLUTE COUNT (BEAKER) (test code = 2.50 K/ L 1.18-3.74 414) MONOCYTES ABSOLUTE COUNT (BEAKER) (test code = 0.57 K/ L 0 .24-0.36 415) EOSINOPHILS ABSOLUTE COUNT (BEAKER) (test code = 0.15 K/ L 0.04-0.36 416) BASOPHILS ABSOLUTE COUNT (BEAKER) (test code = 0.04 K/ L 0 .01-0.08 417) IMMATURE GRANULOCYTES-RELATIVE PERCENT (BEAKER) 0 % 0-1 (test code = 2801) TROPONIN [id number] 01:50:00 Test Item Value Reference Range Comments TROPONIN I (BEAKER) (test code = 397) 0.02 ng/mL 0.00-0.03 Troponin I (TnI) levels [...] acute neurological disease, and persistent tachyarrhythmia.BASIC METABOLIC [id number] 22:36:00 Test Item Value Reference Range Comments SODIUM (BEAKER) (test 137 meq/L 136-145 code = 381) POTASSIUM (BEAKER) (test 4.9 meq/L 3.5-5.1 Specime n slightly code = 379) hemolyzed CHLORIDE (BEAKER) (test 106 meq/L 98-107 code = 382) CO2 (BEAKER) (test code = 22 meq/L 22-29 355) BLOOD UREA NITROGEN 13 mg/dL 7-21 (BEAKER) (test code = 354) CREATININE (BEAKER) (test 0.72 mg/dL 0.57-1.25 Specim en slightly code = 358) hemolyzed GLUCOSE RANDOM (BEAKER) 100 mg/dL 70-105 (test code = 652) CALCIUM (BEAKER) (test 8.6 mg/dL 8.4-10.2 code = 697) EGFR (BEAKER) (test code 83 mL/min/1.73 sq m EST IMATED GFR IS NOT = 1092) ACCURATE CREA TININE CLEARANCE IN PRE DICTING GLOMERULAR FILTR ATION RATE. ESTIMATED GFR IS NOT APPLICABLE F OR DIALYSIS PATIENT S. CREATINE KINASE (CK), TOTAL AND [id number] 21:46:00 Test Item Value Reference Range Comments CREATINE KINASE TOTAL (BEAKER) (test code = 380) 82 U/L 29-200 CREATINE KINASE-MB (BEAKER) (test code = 750) 6.0 ng/mL 0. 0-6.6 CREATINE KINASE-MB INDEX (BEAKER) (test code = 7.3 % 395) CK-MB Reference Range:<6.7 Normal6.7-10.0 Borderline>10.0 [id number] 21:28:00 Test Item Value Reference Range Comments PROTIME (BEAKER) (test code = 759) 14.5 seconds 11.7-14.7 INR (BEAKER) (test code = 370) 1.1 <=5.9 PARTIAL THROMBOPLASTIN TIME (BEAKER) (test code 29.0 seconds 22.5-36.0 = 760) RECOMMENDED COUMADIN/WARFARIN INR THERAPY RANGESSTANDARD DOSE: 2.0 - 3.0 Includes: PROPHYLAXIS forvenous thrombosis, systemic embolization; TREATMENT for venous thrombosis and/or pulmonary embolus.HIGH RISK: Target INR is 2.5-3.5 for patients with mechanical heart valves.RAD, CHEST, 1 VIEW, NON [id number] 20:22:00Reason for exam:->SOBShould this be performed at the bedside?- >YesIs the patient ?->NoFINAL REPORT History: Shortness of breath. Comparison: None. Findings: A single view of the chest is submitted. The patient is rotated to the left. The cardiomediastinal contours are unremarkable. The lungs are hyperinflated. There is no focal consolidation, pneumothorax, large pleural effusion or evidence of overt pulmonary edema. There is no acute bony abnormality. Signed: Jose Mercado MDReport Verified Date/Time: 05/24/2018 20:22:32 Reading Location: [address] Reading Room
[2020-01-16] MEDS ORDERED: NA CHLORIDE 0.9% 1,000 ML ONE (02:06)
[2020-01-16] MEDS ORDERED: MORPHINE 4 MG/ML SYR ONE (02:06)
[2020-01-16] MEDS ORDERED: ONDANSETRON 4 MG/2 ML VIAL ONE (02:06)
[2020-01-16 02:17] LABS: Absolute Lymphocytes (CBC) 2.7 K/uL (0.7-4.9); Basophils % 0.7 % (0-1.3); Hematocrit 31.7 % (36.0-45.0); Lymphocytes % 29.7 % (15.3-44.8); MPV 8.4 fL (7.6-11.3); RBC Red Blood Cell Count 3.59 M/uL (3.86-4.86)
[2020-01-16 02:37] LABS: ALT/SGPT 28 U/L (12-78); AST/SGOT 18 U/L (15-37); Albumin 3.1 g/dL (3.4-5.0); Alkaline Phosphatase 111 U/L (45-117); BUN Blood Urea Nitrogen 5 mg/dL (7-18); Bicarbonate 25 mmol/L (21-32); Bilirubin Total 0.4 mg/dL (0.2-1.0); Glucose Level 111 mg/dL (74-106); Potassium 3.5 mmol/L (3.5-5.1); Protein, Total 6.5 g/dL (6.4-8.2); Sodium Level 132 mmol/L (136-145)
--- NOTE | 2020-01-16 02:53 | EDPHYS ---
Physician Documentation [facility] Name: Ansley Henderson Age: 59 yrs Sex: Female : 1960 Arrival Date: 01/16/2020 Time: 01:27 Bed 5 Private MD: ED Physician Gil Anderson HPI: 01/15 01:42 This 59 yrs old Female presents to ER via EMS with complaints of Fall Injury. [facility] 01:42 Details of fall: The patient fell from an upright position, while standing, while amna walking. Onset: The symptoms/episode began/occurred 3 day(s) ago. Associated injuries: The patient sustained right bicep and right tricep, decreased range of motion, hematoma, painful injury, swelling. Severity of symptoms: At their worst the symptoms were. The patient has not experienced similar symptoms in the past. Historical: - Home Meds: :31 albuterol sulfate 90 mcg/actuation Inhl HFAA 1 puff every 4 hours [Active]; aspirin 81 jd3 mg Oral TbEC 1 tab once daily [Active]; lisinopril 20 mg Oral tab 1 tab once daily [Active]; prednisone 20 mg Oral tab 1 tab 2 times per day [Active]; ranitidine HCl 150 mg Oral tab 1 tab once daily [Active]; tiotropium bromide inhalation once daily [Active]; - PMHx: 01:31 CAD; COPD; CVA; GERD; HEART STENT; Hypertension; jd3 - PSHx: 01:31 ; jd3 - Immunization history:: Adult Immunizations unknown. - Social history:: Smoking status: Patient/guardian denies using tobacco, the patient reports quitting approximately 4 years ago. - Family history:: not pertinent. ROS: 01:42 Constitutional: Negative for fever, chills, and weight loss, Eyes: Negative for injury, amna pain, redness, and discharge, ENT: Negative for injury, pain, and discharge, Neck: Negative for injury, pain, and swelling, Cardiovascular: Negative for chest pain, palpitations, and edema, Respiratory: Negative for shortness of breath, cough, wheezing, and pleuritic chest pain, Abdomen/GI: Negative for abdominal pain, nausea, vomiting, diarrhea, and constipation, Back: Negative for injury and pain, : Negative for injury, bleeding, discharge, and swelling, Skin: Negative for injury, rash, and discoloration, Neuro: Negative for headache, weakness, numbness, tingling, and seizure, Psych: Negative for depression, anxiety, suicide ideation, homicidal ideation, and hallucinations, Allergy/Immunology: Negative for hives, rash, and allergies, Endocrine: Negative for neck swelling, polydipsia, polyuria, polyphagia, and marked weight changes, Hematologic/Lymphatic: Negative for swollen nodes, abnormal bleeding, and unusual bruising. 01:42 MS/extremity: Positive for decreased range of motion, pain, swelling, tenderness, of the right bicep and right tricep. Exam: 01:42 Constitutional: This is a well developed, well nourished patient who is awake, alert, amna and in no acute distress. Head/Face: Normocephalic, atraumatic. Eyes: Pupils equal round and reactive to light, extra-ocular motions intact. Lids and lashes normal. Conjunctiva and sclera are non-icteric and not injected. Cornea within normal limits. Periorbital areas with no swelling, redness, or edema. ENT: Nares patent. No nasal discharge, no septal abnormalities noted. Tympanic membranes are normal and external auditory canals are clear. Oropharynx with no redness, swelling, or masses, exudates, or evidence of obstruction, uvula midline. Mucous membranes moist. Neck: Trachea midline, no thyromegaly or masses palpated, and no cervical lymphadenopathy. Supple, full range of motion without nuchal rigidity, or vertebral point tenderness. No Meningismus. Chest/axilla: Normal chest wall appearance and motion. Nontender with no deformity. No lesions are appreciated. Cardiovascular: Regular rate and rhythm with a normal S1 and S2. No gallops, murmurs, or rubs. Normal PMI, no JVD. No pulse deficits. Respiratory: Lungs have equal breath sounds bilaterally, clear to auscultation and percussion. No rales, rhonchi or wheezes noted. No increased work of breathing, no retractions or nasal flaring. Abdomen/GI: Soft, non-tender, with normal bowel sounds. No distension or tympany. No guarding or rebound. No evidence of tenderness throughout. Back: No spinal tenderness. No costovertebral tenderness. Full range of motion. Skin: Warm, dry with normal turgor. Normal color with no rashes, no lesions, and no evidence of cellulitis. Neuro: Awake and alert, GCS 15, oriented to person, place, time, and situation. Cranial nerves II-XII grossly intact. Motor strength 5/5 in all extremities. Sensory grossly intact. Cerebellar exam normal. Normal gait. Psych: Awake, alert, with orientation to person, place and time. Behavior, mood, and affect are within normal limits. 01:42 Musculoskeletal/extremity: ROM: limited active range of motion due to pain, limited passive range of motion due to pain, Circulation is intact in all extremities. Sensation intact. Compartment Syndrome exam of affected extremity: is normal. DVT Exam: negative Homans' sign noted on exam, no appreciated bluish discoloration, no erythema, no increased warmth, pain, swelling, tenderness. 03:12 Neuro: Orientation: is normal, appropriate for stated age, no acute changes, Mentation: amna is normal, appropriate for stated age, no acute changes, Memory: is normal, appropriate for stated age, no acute changes, Cranial nerves: grossly normal, is grossly normal based on the patient's age, no acute changes, Cerebellar function: is grossly normal, is grossly normal based on the patient's age, no acute changes, Motor: is normal, is grossly normal based on the patient's age, no acute changes, moves all fours, Sensation: tingling, that is mild, that is moderate, of the right hand, Gait: not tested. Deep tendon reflexes are 2+ (normal) in the bilateral brachioradialis, bicep, tricep and patellar and Achilles tendons, seizure activity, is not displayed by the patient. Vital Signs: 01:31 BP 163 / 64; Pulse 97; Resp 19 S; Temp 97.6(A); Pulse Ox 96% on R/A; Weight 68.04 kg jd3 (R); Height 5 ft. 1 in. (154.94 cm) (R); Pain 8/10; 02:56 BP 132 / 60; Pulse 91; Resp 17 S; Pulse Ox 95% on R/A; jd3 01:31 Body Mass Index 28.34 (68.04 kg, 154.94 cm) jd3 MDM: 01:29 Patient medically screened. [facility] 01:45 Data reviewed: vital signs, nurses notes, lab test result(s), radiologic studies, plain amna films. 01:45 Differential diagnosis: fracture. Data interpreted: groundwater monitoring technician: not applicable for [facility] this patient encounter. Pulse oximetry: on room air is 99 %. Test interpretation: by ED physician or midlevel provider: plain radiologic studies. Counseling: I had a detailed discussion with the patient and/or guardian regarding: the historical points, exam findings, and any diagnostic results supporting the discharge/admit diagnosis, lab results, radiology results. 03:11 Other consultation: trauma at [facility], will transfer. [facility] 03:11 ED course: explained reason for transfer, pt understands and is gratful. [facility] 01/15 01:42 Order name: CBC with Diff; Complete Time: 02:46 [facility] 01/15 01:42 Order name: Comprehensive Metabolic Panel; Complete Time: 02:46 [facility] 01/15 01:42 Order name: Humerus Right XRAY [facility] 01/15 01:42 Order name: Chest Single View XRAY [facility] 01/15 01:42 Order name: Splint: coaption splint; Complete Time: 02:25 [facility] Administered Medications: 02:07 Drug: Zofran (Ondansetron) 4 mg Route: IVP; Site: left antecubital; ls4 02:56 Follow up: Response: No adverse reaction jd3 02:08 Drug: NS 0.9% 1000 ml Route: IV; Rate: 125 ml/hr; Site: left antecubital; ls4 03:39 Follow up: Response: No adverse reaction; IV Status: Infusion continued upon transfer jd3 02:08 Drug: morphine 4 mg Route: IVP; Site: left antecubital; ls4 02:56 Follow up: Response: No adverse reaction; RASS: Alert and Calm (0) jd3 02:12 Not Given (Physician Discretion): TORadol 30 mg IVP once jd3 Disposition: 01/16/20 02:52 Transfer ordered to [facility]. Diagnosis are Fall due to bumping against object, Abrasion, left lower leg, Comminuted fracture of shaft of humerus - 3 piece, Chronic obstructive pulmonary disease, unspecified. - Reason for transfer: Higher level of care. - Accepting physician is to trauma, ortho. - Condition is Stable. - Problem is new. - Symptoms have improved. Signatures: Dispatcher [employer] EDMS Gil Anderson MD MD cha Davies, Jonathon, RN RN jd3 Montserrat Stovall RN RN ls4 Corrections: (The following items were deleted from the chart) 03:40 02:52 01/16/2020 02:52 Transfer ordered to [facility]. Diagnosis is Fall jd3 due to bumping against object; Abrasion, left lower leg; Comminuted fracture of shaft of humerus - 3 piece; Chronic obstructive pulmonary disease, unspecified. Reason for transfer: Higher level of care. Accepting physician is to trauma, ortho. Condition is Stable. Problem is new. Symptoms have improved. amna
--- NOTE | 2020-01-16 02:53 | ER ---
Nurse's Notes [facility] Name: Ansley Henderson Age: 59 yrs Sex: Female : 1960 Arrival Date: 01/16/2020 Time: :27 Bed 5 Private MD: Diagnosis: Fall due to bumping against object;Abrasion, left lower leg;Comminuted fracture of shaft of humerus-3 piece;Chronic obstructive pulmonary disease, unspecified Presentation: 01/15 01:27 Chief complaint: Patient states: "The pt fell 2 days ago and she went to the ER in [address] she was told she had a broken arm, splinted, and sent home. she says that today her arm is swelling and she can't get the pain under control.". Coronavirus screen: Proceed with normal triage. Ebola Screen: Patient negative for fever greater than or equal to 101.5 degrees Fahrenheit, and additional compatible Ebola Virus Disease symptoms. Initial Sepsis Screen: Does the patient meet any 2 criteria? No. Patient's initial sepsis screen is negative. Does the patient have a suspected source of infection? No. Patient's initial sepsis screen is negative. Risk Assessment: Do you want to hurt yourself or someone else? Patient reports no desire to harm self or others. Onset of symptoms was January 16, 2020. 01:27 Method Of Arrival: EMS: [facility] 01:27 Acuity: ENMANUEL 3 jd3 Historical: - Home Meds: albuterol sulfate 90 mcg/actuation Inhl HFAA 1 puff every 4 hours [Active]; aspirin 81 jd3 mg Oral TbEC 1 tab once daily [Active]; lisinopril 20 mg Oral tab 1 tab once daily [Active]; prednisone 20 mg Oral tab 1 tab 2 times per day [Active]; ranitidine HCl 150 mg Oral tab 1 tab once daily [Active]; tiotropium bromide inhalation once daily [Active]; - PMHx: 01:31 CAD; COPD; CVA; GERD; HEART STENT; Hypertension; jd3 - PSHx: : ; jd3 - Immunization history:: Adult Immunizations unknown. - Social history:: Smoking status: Patient/guardian denies using tobacco, the patient reports quitting approximately 4 years ago. - Family history:: not pertinent. Screenin:33 Abuse screen: Denies threats or abuse. Nutritional screening: No deficits noted. jd3 Tuberculosis screening: No symptoms or risk factors identified. Fall Risk Ambulatory Aid- None/Bed Rest/Nurse Assist (0 pts). Gait- Normal/Bed Rest/Wheelchair (0 pts) Mental Status- Oriented to own ability (0 pts). Total Lazar Fall Scale indicates No Risk (0-24 pts). Assessment: 01:32 General: Appears in no apparent distress. uncomfortable, Behavior is calm, cooperative, jd3 appropriate for age. Pain: Complains of pain in right arm Quality of pain is described as aching, sharp, tender. Neuro: Level of Consciousness is awake, alert, obeys commands, Oriented to person, place, time, situation. Cardiovascular: Denies chest pain, Capillary refill < 3 seconds Patient's skin is warm and dry. Respiratory: Airway is patent Respiratory effort is even, unlabored, Respiratory pattern is regular, symmetrical, Denies cough, shortness of breath. GI: No signs and/or symptoms were reported involving the gastrointestinal system. : No signs and/or symptoms were reported regarding the genitourinary system. EENT: No signs and/or symptoms were reported regarding the EENT system. Derm: Skin is intact, Skin is dry, Skin is normal, Skin temperature is warm. Musculoskeletal: Circulation, motion, and sensation intact. Range of motion: intact in right hand limited in right arm Swelling present in right hand and right arm. 02:56 Reassessment: Patient appears in no apparent distress at this time. Patient and/or jd3 family updated on plan of care and expected duration. Pain level reassessed. Patient is alert, oriented x 3, equal unlabored respirations, skin warm/dry/pink. Patient states feeling better. 03:09 Reassessment: report given to MESHA Nathan of [facility]. [facility] 03:39 Reassessment: report given to [facility]. [facility] Vital Signs: 01:31 BP 163 / 64; Pulse 97; Resp 19 S; Temp 97.6(A); Pulse Ox 96% on R/A; Weight 68.04 kg jd3 (R); Height 5 ft. 1 in. (154.94 cm) (R); Pain 8/10; 02:56 BP 132 / 60; Pulse 91; Resp 17 S; Pulse Ox 95% on R/A; jd3 01:31 Body Mass Index 28.34 (68.04 kg, 154.94 cm) jd3 ED Course: 01:27 Patient arrived in ED. ds1 01:27 Alessandro De Guzman, RN is Primary Nurse. jd3 01:29 Gil Anderson MD is Attending Physician. amna 01:30 Triage completed. jd3 01:32 Arm band placed on. jd3 01:33 Patient has correct armband on for positive identification. Bed in low position. Call jd3 light in reach. Side rails up X 1. Pulse ox on. NIBP on. 02:01 Inserted saline lock: 20 gauge in left antecubital area, using aseptic technique. Blood jd3 collected. 02:20 Orthoglass splint: Coaptation splint applied on right arm. Sling applied to right arm. ds4 02:25 Comprehensive Metabolic Panel Sent. ds4 02:38 Humerus Right XRAY In Process Unspecified. EDMS 02:38 Chest Single View XRAY In Process Unspecified. EDMS 03:38 No provider procedures requiring assistance completed. Patient transferred, IV remains jd3 in place. Administered Medications: 02:07 Drug: Zofran (Ondansetron) 4 mg Route: IVP; Site: left antecubital; ls4 02:56 Follow up: Response: No adverse reaction jd3 02:08 Drug: NS 0.9% 1000 ml Route: IV; Rate: 125 ml/hr; Site: left antecubital; ls4 03:39 Follow up: Response: No adverse reaction; IV Status: Infusion continued upon transfer jd3 02:08 Drug: morphine 4 mg Route: IVP; Site: left antecubital; ls4 02:56 Follow up: Response: No adverse reaction; RASS: Alert and Calm (0) jd3 02:12 Not Given (Physician Discretion): TORadol 30 mg IVP once jd3 Outcome: 02:52 ER care complete, transfer ordered by . amna 03:38 Transferred by ground EMS to [facility], Transfer form completed. X-rays sent jd3 w/ patient. 03:38 Condition: stable 03:38 Instructed on the need for admit, Demonstrated understanding of instructions. 03:40 Patient left the ED. jd3 Signatures: Dispatcher [employer] EDMS Gil Anderson MD MD amna Storey, Sujatha ds1 Markel Harvey ds4 Alessandro De Guzman RN RN jd3 Shaheen Pires RN RN mg2 Montserrat Stovall RN RN ls4
[2020-01-16 04:20] VITALS: TEMP 97.6
[2020-01-16 04:21] VITALS: BP 132/60; O2SAT 95
--- NOTE | 2020-01-16 11:57 | RAD REPORT ---
EXAM DESCRIPTION: RAD - Humerus Right - 01/16/2020 2:38 am CLINICAL HISTORY: PAIN COMPARISON: No comparisons FINDINGS: Fracture of the proximal right humerus is seen with notable butterfly fragment. Fracture f ragments are mildly angulated. No dislocation evident.
--- NOTE | 2020-01-16 11:57 | RAD REPORT ---
EXAM DESCRIPTION: RAD - Chest Single View - 01/16/2020 2:38 am CLINICAL HISTORY: COUGH Chest pain. COMPARISON: Chest Single View dated 08/15/2018; Chest Single View dated 07/30/2018; Chest Single View dated 12/21/2017; Chest Single View dated 12/20/2017 FINDINGS: Portable technique limits examination quality. The lungs are grossly clear. The heart is normal in size. Oblique fracture is seen proximal right hum erus.
== END 2020-01-16 03:40 | disposition short-term general hospital (02) ==
LOC: ER 01:26
PROC: 2W38X1Z Immobilization of Right Upper Extremity using Splint (ICD-10-PCS; principal; 2020-01-16)
DX: S42.351A Displaced comminuted fracture of shaft of humerus, right arm, initial encounter for closed fracture (principal); S80.812A Abrasion, left lower leg, initial encounter; J44.9 Chronic obstructive pulmonary disease, unspecified; W18.00XA Striking against unspecified object with subsequent fall, initial encounter; Y93.01 Activity, walking, marching and hiking; Y92.9 Unspecified place or not applicable; I10 Essential (primary) hypertension; Z79.82 Long term (current) use of aspirin; Z86.73 Personal history of transient ischemic attack (TIA), and cerebral infarction without residual deficits; Z95.818 Presence of other cardiac implants and grafts
CPT/HCPCS: 85025; 36415; 80053; 71045; 73060; 29105; J7030; J2405; 96361; 96374; 96375; 99285

== ENCOUNTER 2020-11-10 11:38 | Emergency (ER) | payer OTHER ==
--- OUTSIDE RECORDS SUMMARY | 2020-11-10 11:41 | XMS REPORT | Continuity of Care Document ---
:1960 Author Organization [facility] t Address [address] [place] [address] Care Team Providers Name Role Phone Martin Live Attending Clinician Liz MABRY Attending Clinician Unavailable Liz MABRY Admitting Clinician Unavailable Problems Condition Condition Condition Status Onset Resolution Last Treating Co mments Source Name Details Category Date Date Treatment Clinician Date Chronic Chronic Disease Active [facility] bronchitis bronchitis 05-25 - , , 00:00: Medical unspecifie unspecifie 00 [facility] chronic d chronic bronchitis bronchitis type type Left-sided Left-sided Disease Active [facility] weakness weakness 05-24 - 00:00: Medical 00 [place] Stroke Stroke Disease Active [facility] (cerebrum) (cerebrum) 05-24 - 00:00: Medical 00 [place] COPD COPD Disease Active [facility] (chronic (chronic 05-24 - obstructiv obstructiv 00:00: Co dical e e 00 [place] pulmonary pulmonary disease) disease) Hypertensi Hypertensi Disease Active [facility] on on 05-24 - 00:00: Medical 00 [place] Chronic Chronic Disease Active [facility] alcohol alcohol 05-24 [facility] - abuse abuse 00:00: Medical [address] [place] [address] Allergies, Adverse Reactions, Alerts This patient has no known allergies or adverse reactions. Social History Social Habit Start Date Stop Date Quantity Comments Source Sex Assigned At [facility] Tobacco use and 2018-05-26 2018-05-26 Never used [facility] - exposure 00:00:00 00:00:00 [facility] Alcohol intake 2018-05-26 2018-05-26 Current [facility]er [facility] - [facility]00 00:00:00 of alcohol [facility] Center (finding) Smoking Status Start Date Stop Date Source Former smoker 2018-05-26 00:00:00 2018-05-26 00:00:[address] [facility] Medications Ordered Filled Start Stop Current Ordering Indication Dosage Frequency Signature Comments Components Source Medication Medication Date Date Medication? Clinician (SIG) Name Name aspirin 81 Yes 81mg QD Take [address] MG chewable 9-12 by mouth Luke s - tablet 16:57: daily. Medical 24 Center tiotropium Yes 18ug QD Inhale [address] (SPIRIVA) 9-12 mcg by [facility] - 18 mcg 16:57: mouth via Medica l inhalation 24 inhaler Center capsule daily. omeprazole Yes 20mg QD Take [address] (PRILOSEC) 9-12 by mouth [facility]ukes - 20 MG 16:57: daily. Medical capsule 24 Center nitroglycer Yes .4mg Place 0.[address] in 9-12 mg under [facility]ukes - (NITROSTAT) 16:57: the tongue Medical 0.4 MG SL 24 every 5 Center tablet (five) minutes as needed for Chest pain Put 1 pill under tongue every 5min as needed for chest pain.No more than 3 doses in 15min.Call 911 if pain is unrelieved 5min after 1st dose . ipratropium Yes 500ug Take [address] (ATROVENT) 9-12 mcg by [facility] - 0.02 % 16:57: nebulizati Medic al nebulizer 24 on every 4 Cent er solution (four) hours. Procedures This patient has no known procedures. Plan of Care Planned Activity Planned Date Details Comments Source Future Scheduled 2021-05-[address] [facility] - Test 00:00:00 (procedure) [code = [facility] Center [id number]] Future Scheduled 2020-05-16 INFLUENZA VACCINE (#1) [facility] - Test 00:00:00 [code = INFLUENZA Medical Ce nter VACCINE (#1)] Future Scheduled [address] - Test 00:00:00 [facility] cervix (procedure) [code = 428601458] Future Scheduled [address] [facility] - Test 00:00:00 0-64 YRS (1 of 1 - Medical C enter PPSV23) [code = PNEUMOCOCCAL VACCINE 0-64 YRS (1 of 1 - PPSV23)] Future Scheduled [address] [facility] - Test 00:00:00 malignant neoplasm of [facility] breast (procedure) [code = 871135597] Future Scheduled [address] [facility] - Test 00:00:00 malignant neoplasm of [facility] colon (procedure) [code = 793845106] Encounters Start End Encounter Admission Attending Care Care Encounter Source Date/Time Date/Time Type Type Clinicians Facility Department ID 2020-01-18 2020-01-18 [facility] [id number] 09:46:00 23:59:00 Encounter [employer] [id number] Surgical [id number] Specialti [id number] es [address] [place] 2020-01-18 2020-01-18 Office [facility] [id number] 09:27:00 09:42:00 Visit Martin Dot [id number] Surgical [id number] Specialti [id number] es [address] [place] Results Test Description Test Time Test Comments Results Result [facility] e Comments [facility], 2018-05-26 FINAL REPORT PATIENT MITCHELL HAINES, 16:02:00 ID: [id number] SPECT PROCEDURE: Rest/Stress MYOCARDIAL PERFUSION SPECT with regadenoson\XA9\ CPT CODE: 24432 INDICATION: Chest pain HISTORY: Cardiac risk factors: [...] lung due to COPD. 6. No previous [facility] study for comparison. NONINVASIVE RISK STRATIFICATION: The above findings are considered low risk (<1% annual mortality rate) based on the following criterion:- Normal or small myocardial perfusion defect at rest or with stress(JACC. 2012;59(9):857-81.) Signed: Facundo Carpenter MDReport Verified Date/Time: 05/26/2018 16:02:19 Reading Location: [address] Reading Room C METABOLIC PANEL 2018-05-26 04:33:00 Test Item Value Reference Range Interpretation Comme nts SODIUM (BEAKER) (test code 135 meq/L 136-145 L = 381) POTASSIUM (BEAKER) (test 4.4 meq/L 3.5-5.1 code = 379) CHLORIDE (BEAKER) (test 102 meq/L 98-107 code = 382) CO2 (BEAKER) (test code = 24 meq/L 22-29 355) BLOOD UREA NITROGEN 11 mg/dL 7-21 (BEAKER) (test code = 354) CREATININE (BEAKER) (test 0.68 mg/dL 0.57-1.25 code = 358) GLUCOSE RANDOM (BEAKER) 96 mg/dL 70-105 (test code = 652) CALCIUM (BEAKER) (test code 9.1 mg/dL 8.4-10.2 = 697) EGFR (BEAKER) (test code = 89 mL/min/1.73 sq m ESTIMATED GFR IS NOT 1092) ACCURATE CRE ATININE CLEARANCE IN PA EDICTING GLOMERULAR FILT RATION RATE. ESTIMATED GFR IS NOT APPLICABLE FOR DIALYSIS PATIENTS. CBC (HEMOGRAM ONLY)2018-05-26 04:24:00 Test Item Value Reference Range Interpretation Comments WHITE BLOOD CELL COUNT (BEAKER) 6.3 K/ L 3.5-10.5 (test code = 775) RED BLOOD CELL COUNT (BEAKER) 4.07 M/ L 3.93-5.22 (test code = 761) HEMOGLOBIN (BEAKER) (test code = 11.1 GM/DL 11.2-15.7 L 410) HEMATOCRIT (BEAKER) (test code = 35.9 % 34.1-44.9 411) MEAN CORPUSCULAR VOLUME (BEAKER) 88.2 fL 79.4-94.8 (test code = 753) MEAN CORPUSCULAR HEMOGLOBIN 27.3 pg 25.6-32.2 (BEAKER) (test code = 751) MEAN CORPUSCULAR HEMOGLOBIN CONC 30.9 GM/DL 32.2-35.5 L (BEAKER) (test code = 752) RED CELL DISTRIBUTION WIDTH 14.1 % 11.7-14.4 (BEAKER) (test code = 412) PLATELET COUNT (BEAKER) (test 210 K/CU MM 150-450 code = 756) MEAN PLATELET VOLUME (BEAKER) 9.9 fL 9.4-12.3 (test code = 754) NUCLEATED RED BLOOD CELLS 0 /100 WBC 0-0 (BEAKER) (test code = 413) MR, MRA, BRAIN, WITHOUT [id number] 22:00:00Reason for exam:->Ischemic Stroke EvaluationFINAL REPORT MR, [...] MDReport Verified Date/Time: 05/25/2018 22:00:39 Reading Location: [address] Body Reading Room MR, MRA, NECK, WITHOUT IV [id number] 22:00:00Reason for exam:- >Ischemic Stroke EvaluationFINAL REPORT [...] MDReport Verified Date/Time: 05/25/2018 22:00:39 Reading Location: [place] [id number] CT Body Reading Room MR, BRAIN, WITHOUT [id number] 22:00:00Reason for exam:- >Ischemic Stroke EvaluationFINAL REPORT [...] MDReport Verified Date/Time: 05/25/2018 22:00:39 Reading Location: [facility] C013Y CT Body Reading Room HEMOGLOBIN [id number] 09:45:00 Test Item Value Reference Range Interpretation Comments HEMOGLOBIN A1C (BEAKER) (test code = 5.4 % 4.3-6.1 368) LIPID [id number] 07:58:00 Test Item Value Reference Range Interpretation Comments TRIGLYCERIDES (BEAKER) (test code = 190 mg/dL 540) CHOLESTEROL (BEAKER) (test code = 170 mg/dL 631) HDL CHOLESTEROL (BEAKER) (test code 62 mg/dL = 976) LDL CHOLESTEROL CALCULATED (BEAKER) 70 mg/dL (test code = 633) Triglyceride Reference Range: Low Risk <150 Borderline 150-199 High Risk 200-499 Very High Risk >=500Cholesterol Reference Range: Low Risk <200 Borderline 200-239 High Risk >240HDL Cholesterol Reference Range: Low Risk >=60 High Risk <40LDL Cholesterol Reference Range: Optimal <100 Near Optimal 100-129 Borderline 130-159 High 160-189 Very High >=190TSH/FREE T4 IF [id number] 06:27:00 Test Item Value Reference Range Interpretation Comments THYROID STIMULATING HORMONE 4.27 uIU/mL 0.35-4.94 (BEAKER) (test code = 772) CREATINE KINASE (CK), TOTAL AND [id number] 06:13:00 Test Item Value Reference Range Interpretation Comments CREATINE KINASE TOTAL (BEAKER) 53 U/L 29-200 (test code = 380) CREATINE KINASE-MB (BEAKER) (test 3.9 ng/mL 0.0-6.6 code = 750) CREATINE KINASE-MB INDEX (BEAKER) 7.4 % (test code = 395) CK-MB Reference Range:<6.7 Normal6.7-10.0 Borderline>10.0 AbnormalTROPONIN [id number] 06:13:00 Test Item Value Reference Range Interpretation Comments TROPONIN I (BEAKER) (test code = [...] acidosis, acute neurological disease, and persistent tachyarrhythmia.CALCIUM, [id number] 06:13:00 Test Item Value Reference Range Interpretation Comments CALCIUM IONIZED (BEAKER) (test 1.17 mmol/L 1.12-1.27 code = 698) PH, BLOOD (BEAKER) (test code = 7.33 1810) [id number] 06:05:00 Test Item Value Reference Range Interpretation Comments PHOSPHORUS (BEAKER) (test code = 4.1 mg/dL 2.3-4.7 604) [id number] 06:05:00 Test Item Value Reference Range Interpretation Comments MAGNESIUM (BEAKER) (test code = 2.0 mg/dL 1.6-2.6 627) CBC W/PLT COUNT & AUTO [id number] 05:44:00 Test Item Value Reference Range Interpretation Comments WHITE BLOOD CELL COUNT (BEAKER) 7.1 K/ L 3.5-10.5 (test code = 775) RED BLOOD CELL COUNT (BEAKER) 4.23 M/ L 3.93-5.22 (test code = 761) HEMOGLOBIN (BEAKER) (test code = 11.6 GM/DL 11.2-15.7 410) HEMATOCRIT (BEAKER) (test code = 37.2 % 34.1-44.9 411) MEAN CORPUSCULAR VOLUME (BEAKER) 87.9 fL 79.4-94.8 (test code = 753) MEAN CORPUSCULAR HEMOGLOBIN 27.4 pg 25.6-32.2 (BEAKER) (test code = 751) MEAN CORPUSCULAR HEMOGLOBIN CONC 31.2 GM/DL 32.2-35.5 L (BEAKER) (test code = 752) RED CELL DISTRIBUTION WIDTH 14.4 % 11.7-14.4 (BEAKER) (test code = 412) PLATELET COUNT (BEAKER) (test 215 K/CU MM 150-450 code = 756) MEAN PLATELET VOLUME (BEAKER) 10.0 fL 9.4-12.3 (test code = 754) NUCLEATED RED BLOOD CELLS 0 /100 WBC 0-0 (BEAKER) (test code = 413) NEUTROPHILS RELATIVE PERCENT 54 % (BEAKER) (test code = 429) LYMPHOCYTES RELATIVE PERCENT 35 % (BEAKER) (test code = 430) MONOCYTES RELATIVE PERCENT 8 % (BEAKER) (test code = 431) EOSINOPHILS RELATIVE PERCENT 2 % (BEAKER) (test code = 432) BASOPHILS RELATIVE PERCENT 1 % (BEAKER) (test code = 437) NEUTROPHILS ABSOLUTE COUNT 3.79 K/ L 1.56-6.13 (BEAKER) (test code = 670) LYMPHOCYTES ABSOLUTE COUNT 2.50 K/ L 1.18-3.74 (BEAKER) (test code = 414) MONOCYTES ABSOLUTE COUNT (BEAKER) 0.57 K/ L 0.24-0.36 H (test code = 415) EOSINOPHILS ABSOLUTE COUNT 0.15 K/ L 0.04-0.36 (BEAKER) (test code = 416) BASOPHILS ABSOLUTE COUNT (BEAKER) 0.04 K/ L 0.01-0.08 (test code = 417) IMMATURE GRANULOCYTES-RELATIVE 0 % 0-1 PERCENT (BEAKER) (test code = 2801) TROPONIN [id number] 01:50:00 Test Item Value Reference Range Interpretation Comments TROPONIN I (BEAKER) (test code = 0.02 ng/mL 0.00-0.03 397) Troponin I (TnI) levels must be interpreted [...] acute neurological disease, and persistent tachyarrhythmia.BASIC METABOLIC [id number] 22:36:00 Test Item Value Reference Range Interpretation Comments SODIUM (BEAKER) 137 meq/L 136-145 (test code = 381) POTASSIUM (BEAKER) 4.9 meq/L 3.5-5.1 Specimen slightly (test code = 379) hemolyzed CHLORIDE (BEAKER) 106 meq/L 98-107 (test code = 382) CO2 (BEAKER) (test 22 meq/L 22-29 code = 355) BLOOD UREA NITROGEN 13 mg/dL 7-21 (BEAKER) (test code = 354) CREATININE (BEAKER) 0.72 mg/dL 0.57-1.25 Specimen slightly (test code = 358) hemolyzed GLUCOSE RANDOM 100 mg/dL 70-105 (BEAKER) (test code = 652) CALCIUM (BEAKER) 8.6 mg/dL 8.4-10.2 (test code = 697) EGFR (BEAKER) (test 83 mL/min/1.73 ESTIMA HERNAN GFR IS code = 1092) sq m NOT ACCURATE CREATININE CLEARANCE IN PREDICTING GLOMERULAR FILTRATION RATE . ESTIMATED GFR I S NOT APPLICABLE FOR DIALYSIS PATIEN TS. CREATINE KINASE (CK), TOTAL AND [id number] 21:46:00 Test Item Value Reference Range Interpretation Comments CREATINE KINASE TOTAL (BEAKER) 82 U/L 29-200 (test code = 380) CREATINE KINASE-MB (BEAKER) (test 6.0 ng/mL 0.0-6.6 code = 750) CREATINE KINASE-MB INDEX (BEAKER) 7.3 % (test code = 395) CK-MB Reference Range:<6.7 Normal6.7-10.0 Borderline>10.0 AbnormalPT/[id number] 21:28:00 Test Item Value Reference Range Interpretation Comments PROTIME (BEAKER) (test code = 14.5 seconds 11.7-14.7 759) INR (BEAKER) (test code = 370) 1.1 <=5.9 PARTIAL THROMBOPLASTIN TIME 29.0 seconds 22.5-36.0 (BEAKER) (test code = 760) RECOMMENDED COUMADIN/WARFARIN INR THERAPY RANGESSTANDARD DOSE: 2.0 - 3.0 Includes: PROPHYLAXIS forvenous thrombosis, systemic embolization; TREATMENT for venous thrombosis and/or pulmonary embolus.HIGH RISK: Target INR is 2.5-3.5 for patients with mechanical heart valves.RAD, CHEST, 1 VIEW, NON [id number] 20:22:00Reason for exam:->SOBShould this be performed at [...] no acute bony abnormality. Signed: Cash Mercado MDReport Verified Date/Time: 05/24/2018 20:22:32 Reading Location: [address] Reading Room
[2020-11-10] MEDS ORDERED: METHYLPREDNISOLONE 125 MG INJ ONE (12:42)
[2020-11-10] MEDS ORDERED: MAGNESIUM SULFATE 1 gm IVPB 1 GM/100 ML BAG IV ONE (12:43)
[2020-11-10] MEDS ORDERED: IPRATROPIUM BROM 0.5MG/2.5ML ONE (12:43)
[2020-11-10] MEDS ORDERED: ALBUTEROL 2.5 MG/3 ML NEB SOL ONE (12:43)
[2020-11-10 12:46] LABS: Basophils % 1.2 % (0-1.3); Hematocrit 41.5 % (36.0-45.0); Lymphocytes % 29.6 % (15.3-44.8); MPV 7.8 fL (7.6-11.3); RBC Red Blood Cell Count 4.81 M/uL (3.86-4.86)
[2020-11-10 12:54] LABS: BUN Blood Urea Nitrogen 7 mg/dL (7-18); Bicarbonate 23 mmol/L (21-32); Glucose Level 91 mg/dL (74-106); Potassium 4.3 mmol/L (3.5-5.1); Sodium Level 137 mmol/L (136-145)
--- NOTE | 2020-11-10 13:02 | RAD REPORT ---
EXAM DESCRIPTION: RAD - Chest Single View - 11/10/2020 12:56 pm CLINICAL HISTORY: Cough;Congestion Chest pain. COMPARISON: Chest Single View dated 01/16/2020; Chest Single View dated 08/15/2018; Chest Single View d ated 07/30/2018; Chest Single View dated 12/21/2017; Humerus Right dated 01/16/2020 FINDINGS: Portable technique limits examination quality. The lungs are emphysematous but grossly clear. The heart is normal in size. Incompletely healed fract ure of the proximal right humerus noted. IMPRESSION: Mild COPD.
[2020-11-10 13:36] LABS: SARS-COV-2 RT PCR NEGATIVE (NEGATIVE)
--- NOTE | 2020-11-10 13:49 | ER ---
Nurse's Notes [facility] Name: Ansley Henderson Age: 60 yrs Sex: Female : 1960 Arrival Date: 11/10/2020 Time: 11:40 Bed 24 Private MD: Diagnosis: Chronic obstructive pulmonary disease with (acute) exacerbation;Bronchitis, not specified as acute or chronic Presentation: 11/10 11:44 Chief complaint: Patient states: Cough, SOB, CP for 3 days. No fever. Coronavirus ll1 screen: Client denies travel out of the [place] in the last 14 days. congestion, cough unrelated to allergies, difficulty breathing, shortness of breath, sore throat, Client presents with at least one sign or symptom that may indicate coronavirus-19. Standard/surgical mask placed on the client. Ebola Screen: Patient denies travel to an Ebola-affected area in the 21 days before illness onset. Initial Sepsis Screen: Does the patient meet any 2 criteria? HR > 90 bpm. No. Patient's initial sepsis screen is negative. Does the patient have a suspected source of infection? Yes: Productive cough/pneumonia. Risk Assessment: Do you want to hurt yourself or someone else? Patient reports no desire to harm self or others. Onset of symptoms was November 08, 2020. 11:44 Method Of Arrival: Ambulatory ll1 11:44 Acuity: ENMANUEL 3 ll1 Historical: - Allergies: 11:44 No Known Allergies; ll1 - PMHx: 11:44 CAD; COPD; CVA; GERD; HEART STENT; Hypertension; ll1 - PSHx: 11:44 ; ll1 - Immunization history:: Flu vaccine is not up to date. - Social history:: Smoking status: Patient/guardian denies using tobacco, the patient reports quitting approximately 4 years ago. Screenin:52 Abuse screen: Denies threats or abuse. Denies injuries from another. Nutritional ec1 screening: No deficits noted. Tuberculosis screening: No symptoms or risk factors identified. Fall Risk Fall in past 12 months (25 points). Secondary diagnosis (15 points) No IV (0 pts). Ambulatory Aid- None/Bed Rest/Nurse Assist (0 pts). Gait- Normal/Bed Rest/Wheelchair (0 pts) Mental Status- Oriented to own ability (0 pts). Assessment: 11:52 General: Appears comfortable, Behavior is calm, cooperative. Pain: Complains of pain in ec1 chest Pain does not radiate. Pain currently is 5 out of 10 on a pain scale. Quality of pain is described as pressure. Neuro: Level of Consciousness is awake, alert, obeys commands. Cardiovascular: Rhythm is sinus rhythm. Respiratory: Reports cough that is productive, reports yellow and green sputum Airway is patent Respiratory effort is even, labored, Respiratory pattern is tachypnea Breath sounds are diminished bilaterally. GI: No signs and/or symptoms were reported involving the gastrointestinal system. : No signs and/or symptoms were reported regarding the genitourinary system. EENT: No signs and/or symptoms were reported regarding the EENT system. Derm: No signs and/or symptoms reported regarding the dermatologic system. Musculoskeletal: right arm/ shoulder is in sling. 13:11 Reassessment: Patient appears in no apparent distress at this time. No changes from ec1 previously documented assessment. Patient and/or family updated on plan of care and expected duration. Pain level reassessed. 13:12 Respiratory: Reports improved sob. Breath sounds are clear in right upper lobe Breath ec1 sounds are diminished in left upper lobe, left lower lobe and right lower lobe. Vital Signs: 11:44 BP 184 / 89; Pulse 95; Resp 20; Temp 97.4; Pulse Ox 100% ; Weight 68.04 kg; Height 5 ll1 ft. 1 in. (154.94 cm); Pain 7/10; 12:00 BP 127 / 91; Pulse 86; Resp 18; Pulse Ox 97% on R/A; vg1 12:30 BP 149 / 102; Pulse 88; Resp 20; Pulse Ox 98% on R/A; vg1 13:00 BP 133 / 63; Pulse 83; Resp 20 S; Pulse Ox 100% on R/A; ec1 13:45 BP 148 / 71; Pulse 106; Resp 18 S; Pulse Ox 95% on R/A; ec1 11:44 Body Mass Index 28.34 (68.04 kg, 154.94 cm) ll1 ED Course: 11:40 Patient arrived in ED. ds1 11:45 Triage completed. ll1 11:45 Arm band placed on Patient placed in an exam room, on a stretcher. ll1 11:46 Danita Skelton, RN is Primary Nurse. ec1 11:47 [facility]uliya Fabian F[facility]-C [facility]. kb 11:47 Charlie Vásquez MD is Attending Physician. kb 11:52 Patient has correct armband on for positive identification. Bed in low position. ec1 12:22 Inserted saline lock: 20 gauge in right wrist, using aseptic technique. Blood collected.jp3 12:22 First set of blood cultures drawn by me. jp3 12:24 COVID swab sent to lab. Flu and/or RSV swab sent to lab. jp3 12:28 Initial lab(s) drawn, by me, sent to lab. Second set of blood cultures drawn by me. jp3 12:56 Chest Single View XRAY In Process Unspecified. EDMS 14:01 No provider procedures requiring assistance completed. IV discontinued, intact, ec1 bleeding controlled, Pressure dressing applied. Administered Medications: 12:41 Drug: SOLU-Medrol 125 mg Route: IVP; Site: right wrist; vg1 13:38 Follow up: Response: No adverse reaction vg1 12:41 Drug: Magnesium Sulfate 1 grams Route: IVPB; Infused Over: 1 hrs; Site: right wrist; vg1 13:38 Follow up: IV Status: Completed infusion vg1 12:41 Drug: DuoNeb (3:1) (2.5 mg - 0.5 mg) 3 ml Route: Nebulizer; vg1 13:38 Follow up: Response: No adverse reaction vg1 Outcome: 13:49 Discharge ordered by . kb 14:01 Discharged to home ambulatory. ec1 14:01 Discharged to home ambulatory. 14:01 Condition: good 14:01 Discharge instructions given to patient, Instructed on discharge instructions, follow up and referral plans. Demonstrated understanding of instructions, follow-up care, medications, Prescriptions given X 2. 14:02 Patient left the ED. ec1 Signatures: Dispatcher [employer] EDCA Yuliya Fabian FNP-C FNP-Ckb Sanford, Demi ds1 Pisarski, Jacob jp3 Maranda Valentine, MESHA RN vg1 Grover Reaves RN RN ll1 Danita Skelton RN RN ec1
--- NOTE | 2020-11-10 13:49 | EDPHYS ---
Physician Documentation [facility] Name: Ansley Henderson Age: 60 yrs Sex: Female : 1960 Arrival Date: 11/10/2020 Time: 11:40 Bed 24 Private MD: ED Physician Charlie Vásquez HPI: 11/10 19:38 This 60 yrs old Female presents to ER via Ambulatory with complaints of kb Breathing Difficulty. 19:38 The patient or guardian reports cough, that is intermittent, described as mild, kb difficulty breathing. The patient has not experienced similar symptoms in the past. The patient has not recently seen a physician. 19:38 Onset: The symptoms/episode began/occurred 3 day(s) ago. Severity of symptoms: At their kb worst the symptoms were mild, moderate, in the emergency department the symptoms are unchanged. Modifying factors: The symptoms are alleviated by nothing, the symptoms are aggravated by nothing. Associated signs and symptoms: Pertinent positives: rhinorrhea, sore throat, Pertinent negatives: chest pain, diarrhea, ear ache, fever, nausea, vomiting. Historical: - Allergies: 11:44 No Known Allergies; ll1 - PMHx: 11:44 CAD; COPD; CVA; GERD; HEART STENT; Hypertension; ll1 - PSHx: 11:44 ; ll1 - Immunization history:: Flu vaccine is not up to date. - Social history:: Smoking status: Patient/guardian denies using tobacco, the patient reports quitting approximately 4 years ago. ROS: 19:36 Constitutional: Negative for fever, chills, and weight loss, Cardiovascular: Negative kb for chest pain, palpitations, and edema, Abdomen/GI: Negative for abdominal pain, nausea, vomiting, diarrhea, and constipation, MS/Extremity: Negative for injury and deformity, Skin: Negative for injury, rash, and discoloration, Neuro: Negative for headache, weakness, numbness, tingling, and seizure. 19:36 ENT: Positive for rhinorrhea, sinus congestion. 19:36 Respiratory: Positive for cough, with yellow sputum, dyspnea on exertion, shortness of breath. Exam: 19:36 Constitutional: This is a well developed, well nourished patient who is awake, alert, kb and in no acute distress. Head/Face: Normocephalic, atraumatic. Cardiovascular: Regular rate and rhythm with a normal S1 and S2. No gallops, murmurs, or rubs. Normal PMI, no JVD. No pulse deficits. Abdomen/GI: Soft, non-tender, with normal bowel sounds. No distension or tympany. No guarding or rebound. No evidence of tenderness throughout. Skin: Warm, dry with normal turgor. Normal color with no rashes, no lesions, and no evidence of cellulitis. MS/ Extremity: Pulses equal, no cyanosis. Neurovascular intact. Full, normal range of motion. Neuro: Awake and alert, GCS 15, oriented to person, place, time, and situation. Cranial nerves II-XII grossly intact. Motor strength 5/5 in all extremities. Sensory grossly intact. Cerebellar exam normal. Normal gait. 19:36 Respiratory: moderate respiratory distress is noted, Respirations: labored breathing, that is moderate, Breath sounds: wheezing: expiratory that is moderate, is scattered. Vital Signs: 11:44 BP 184 / 89; Pulse 95; Resp 20; Temp 97.4; Pulse Ox 100% ; Weight 68.04 kg; Height 5 ll1 ft. 1 in. (154.94 cm); Pain 7/10; 12:00 BP 127 / 91; Pulse 86; Resp 18; Pulse Ox 97% on R/A; vg1 12:30 BP 149 / 102; Pulse 88; Resp 20; Pulse Ox 98% on R/A; vg1 13:00 BP 133 / 63; Pulse 83; Resp 20 S; Pulse Ox 100% on R/A; ec1 13:45 BP 148 / 71; Pulse 106; Resp 18 S; Pulse Ox 95% on R/A; ec1 11:44 Body Mass Index 28.34 (68.04 kg, 154.94 cm) ll1 MDM: 11:47 Patient medically screened. kb 19:35 Data reviewed: vital signs, nurses notes. Data interpreted: Pulse oximetry: on room air kb is 95 %. Interpretation: normal. Counseling: I had a detailed discussion with the patient and/or guardian regarding: the historical points, exam findings, and any diagnostic results supporting the discharge/admit diagnosis, lab results, radiology results, the need for outpatient follow up, a family practitioner, to return to the emergency department if symptoms worsen or persist or if there are any questions or concerns that arise at home. ED course: Pt has oxygen at home for PRN use. States she doesn't use nebs because she doesn't like the way they make her shake. States her breathing now is the same as it normally is. Pt appears more comfortable than arrival, wheezing decreased. 11/10 12:08 Order name: CBC with Diff; Complete Time: 13:09 kb 11/10 12:08 Order name: Basic Metabolic Panel; Complete Time: 13:09 kb 11/10 12:08 Order name: Procalcitonin; Complete Time: 13:28 kb 11/10 12:08 Order name: Lactate; Complete Time: 13:09 kb 11/10 12:08 Order name: Blood Culture Adult (2) kb 11/10 12:08 Order name: IV Start; Complete Time: 12:37 kb 11/10 12:08 Order name: Chest Single View XRAY; Complete Time: 13:09 kb 11/10 13:37 Order name: COVID-19/FLU A+B; Complete Time: 13:39 EDMS Administered Medications: 12:41 Drug: SOLU-Medrol 125 mg Route: IVP; Site: right wrist; vg1 13:38 Follow up: Response: No adverse reaction vg1 12:41 Drug: Magnesium Sulfate 1 grams Route: IVPB; Infused Over: 1 hrs; Site: right wrist; vg1 13:38 Follow up: IV Status: Completed infusion vg1 12:41 Drug: DuoNeb (3:1) (2.5 mg - 0.5 mg) 3 ml Route: Nebulizer; vg1 13:38 Follow up: Response: No adverse reaction vg1 Disposition: 11/10/20 13:49 Discharged to Home. Impression: Chronic obstructive pulmonary disease with (acute) exacerbation, Bronchitis, not specified as acute or chronic. - Condition is Stable. - Discharge Instructions: Chronic Obstructive Pulmonary Disease Exacerbation, Acute Bronchitis, [id number]. - Prescriptions for Prednisone 20 mg Oral Tablet - take 1 tablet by ORAL route once daily for 5 days; 5 tablet. Zithromax Z- Mickey 250 mg Oral Tablet - take 1 tablet by ORAL route as directed for 5 days Day 1 - take two (2) tablets one time. Day 2, 3, 4 , 5 take one (1) tablet once daily.; 6 tablet. - Medication Reconciliation Form, Thank You Letter, Antibiotic Education, Prescription Opioid Use form. - Follow up: Emergency Department; When: As needed; Reason: Worsening of condition. Follow up: Private Physician; When: 2 - 3 days; Reason: Recheck today's complaints, Continuance of care, Re-evaluation by your physician. Addendum: 11/13/2020 06:01 Co-signature as Attending Physician, Charlie Vásquez MD I agree with the assessment and k dr plan of care. Signatures: Dispatcher [employer] EDUT Yuliya Fabian, HELP DESK REPRESENTATIVE-C HELP DESK REPRESENTATIVE-Ckb Charlie Vásquez MD MD kdr Maranda Valentine, RN RN vg1 Grover Reaves RN RN ll1 Danita Skelton, RN RN ec1 Corrections: (The following items were deleted from the chart) 11/10 12:50 12:09 Influenza Screen (A \T\ B)+BA.LAB.BRZ ordered. EDUT EDUT 12:50 12:09 CORONAVIRUS+MR.LAB.BRZ ordered. EDUT EDMS 14:02 13:49 11/10/2020 13:49 Discharged to Home. Impression: Chronic obstructive pulmonary ec1 disease with (acute) exacerbation; Bronchitis, not specified as acute or chronic. Condition is Stable. Forms are Medication Reconciliation Form, Thank You Letter, Antibiotic Education, Prescription Opioid Use. Follow up: Emergency Department; When: As needed; Reason: Worsening of condition. Follow up: Private Physician; When: 2 - 3 days; Reason: Recheck today's complaints, Continuance of care, Re-evaluation by your physician. kb 19:38 19:35 ED course: Pt has oxygen at home for PRN use. States she doesn't use nebs because kb she doesn't like the way they make her shake. States her breathing now is the same as it normally is.. kb
[2020-11-10 15:01] VITALS: TEMP 97.4
[2020-11-10 15:05] VITALS: BP 133/63; O2SAT 100
== END 2020-11-10 14:02 | disposition home or self-care (01) ==
LOC: ER 11:38
DX: J44.1 Chronic obstructive pulmonary disease with (acute) exacerbation (principal); J40 Bronchitis, not specified as acute or chronic; I10 Essential (primary) hypertension; Z20.822 Contact with and (suspected) exposure to COVID-19; Z87.891 Personal history of nicotine dependence; Z95.818 Presence of other cardiac implants and grafts
CPT/HCPCS: 96365; 87040 ×2; 85025; 80048; 36415; 83605; 84145; 0240U; 71045; 96375; 99285; J3475; J2930

== ENCOUNTER 2021-02-06 22:47 | Observation (INO) | payer OTHER ==
--- OUTSIDE RECORDS SUMMARY | 2021-02-06 22:50 | XMS REPORT | Continuity of Care Document ---
:1960 Author Organization [facility] t Address [address] [place] [address] Care Team Providers Name Role Phone Jean Paul FRANK, Su Gordon Attending Clinician Art GONZALEZ MD Attending Clinician Liz MABRY Attending Clinician Unavailable [...] St weakness weakness 05-24 - 00:00: Medical [address] [place] [address] Stroke Stroke Disease Active [facility] ([facility] (cerebrum) 05-24 - 00:00: Medical [address] [place] [address] COPD COPD Disease Active [facility] (chronic (chronic 05-24 - obstructiv obstructiv 00:00: Ga dical e e 00 [place] pulmonary pulmonary disease) disease) Hypertensi Hypertensi Disease Active [facility] on on 05-24 - 00:00: Medical [address] [place] [address] Chronic Chronic Disease Active [facility] alcohol alcohol 05-24 - abuse abuse 00:00: Medical 00 [place] Allergies, Adverse Reactions, Alerts This patient has no known allergies or adverse reactions. Social History Social Habit Start Date Stop Date Quantity Comments Source Sex Assigned At [facility] Tobacco use and 2018-05-26 2018-05-26 Never used MACKENZIE Cabrera [place] kes - exposure 00:00:00 [facility]:00 [facility] Alcohol intake 2018-05-26 2018-05-26 Current drinker [facility] - 00:[facility]:00 00:00:00 of alcohol [facility] (finding) Smoking Status Start Date Stop Date Source Former smoker 2018-05-26 00:00:00 2018-05-26 00:00:[address] [facility] Medications Ordered Filled Start Stop Current Ordering Indication Dosage Frequency Signature Comments Components Source Medication Medication Date Date Medication? Clinician (SIG) Name Name aspirin 81 2018 Yes 81mg QD Take 81 mg C [...] s - Test 00:00:00 (procedure) [code = [facility] 56645278] Future Scheduled 2020-05-16 INFLUENZA VACCINE (#1) [facility] - Test 00:00:00 [code = INFLUENZA Medical Ce nter VACCINE (#1)] Future Scheduled [address] [facility] - Test 00:00:00 malignant neoplasm of [facility] cervix (procedure) [code = 701364697] Future Scheduled [address] [facility] - Test 00:00:00 0-64 YRS (1 of 1 - Medical C enter PPSV23) [code = PNEUMOCOCCAL VACCINE 0-64 YRS (1 of 1 - PPSV23)] Future Scheduled [address] [facility] - Test 00:00:00 malignant neoplasm of [facility] breast (procedure) [code = 135759956] Future Scheduled [address] [facility] - Test 00:00:00 malignant neoplasm of [facility] colon (procedure) [code = 190842937] Encounters Start End Encounter Admission Attending Care Care Encounter Source Date/Time Date/Time Type Type Clinicians Facility Department ID 2021-01-01 2021-01-01 Abstract Jean Paul [facility] [id number] 00:00:00 00:00:00 Su PRIMARY [id number] [facility] [id number] PAVILLION [id number] 2020-12-14 2020-12-14 Office Art [facility] [id number] 10:39:46 12:35:18 Visit Bereket [facility] [id number] CARE [id number] PAVILLION [id number] Results Test Description Test Time Test Comments Results Result [facility] e Comments [facility], 2018-05-26 FINAL REPORT PATIENT MITCHELL HAINES, 16:02:00 ID: [id number] SPECT PROCEDURE: Rest/Stress MYOCARDIAL PERFUSION SPECT with regadenoson\XA9\ CPT CODE: 03785 INDICATION: Chest pain HISTORY: Cardiac risk factors: [...] lung due to COPD. 6. No previous [facility] study for comparison. NONINVASIVE RISK STRATIFICATION: The above findings are considered low risk (<1% annual mortality rate) based on the following criterion:- Normal or small myocardial perfusion defect at rest or with stress(JACC. 2012;59(9):857-81.) Signed: Case Carpenter MDReport Verified Date/Time: 05/26/2018 16:02:19 Reading Location: [address] Reading Room C METABOLIC PANEL 2018-05-26 [...] NOT 1092) ACCURATE CRE ATININE CLEARANCE IN NC EDICTING GLOMERULAR FILT RATION RATE. ESTIMATED GFR [...] code = 413) MR, MRA, BRAIN, WITHOUT [id number] 22:00:00Reason for exam:->Ischemic Stroke EvaluationFINAL REPORT MR, [...] MDReport Verified Date/Time: 05/25/2018 22:00:39 Reading Location: [address] Body Reading Room MR, MRA, NECK, WITHOUT IV [id number] 22:00:00Reason for exam:- >Ischemic Stroke EvaluationFINAL REPORT [...] or cranial circulation. Signed: JR Keating Robert MDRepremy Verified Date/Time: 05/25/2018 22:00:39 Reading Location: [address] Body Reading Room MR, BRAIN, WITHOUT [id number] 22:00:00Reason for exam:- >Ischemic Stroke EvaluationFINAL REPORT [...] the cervical or cranial circulation. Signed: JR Zuri, Catrachita Wiseman Verified Date/Time: 05/25/2018 22:00:39 Reading Location: [facility] B[address] CT Body Reading Room HEMOGLOBIN [id number] 09:45:00 Test Item Value Reference Range Interpretation Comments HEMOGLOBIN A1C (BEAKER) (test code = 5.4 % 4.3-6.1 368) LIPID [id number] 07:58:00 Test Item Value Reference Range Interpretation [...] High 160-189 Very High >=190TSH/FREE T4 IF [id number] 06:27:00 Test Item Value Reference Range Interpretation Comments THYROID STIMULATING HORMONE 4.27 uIU/mL 0.35-4.94 (BEAKER) (test code = 772) CREATINE KINASE (CK), TOTAL AND [id number] 06:13:00 Test Item Value Reference Range Interpretation Comments CREATINE KINASE TOTAL (BEAKER) 53 U/L 29-200 (test code = 380) CREATINE KINASE-MB (BEAKER) (test 3.9 ng/mL 0.0-6.6 code = 750) CREATINE KINASE-MB INDEX (BEAKER) 7.4 % (test code = 395) CK-MB Reference Range:<6.7 Normal6.7-10.0 Borderline>10.0 AbnormalTROPONIN [id number] 06:13:00 Test Item Value Reference Range Interpretation [...] acidosis, acute neurological disease, and persistent tachyarrhythmia.CALCIUM, [id number] 06:13:00 Test Item Value Reference Range Interpretation Comments CALCIUM IONIZED (BEAKER) (test 1.17 mmol/L 1.12-1.27 code = 698) PH, BLOOD (BEAKER) (test code = 7.33 1810) [id number] 06:05:00 Test Item Value Reference Range Interpretation Comments PHOSPHORUS (BEAKER) (test code = 4.1 mg/dL 2.3-4.7 604) [id number] 06:05:00 Test Item Value Reference Range Interpretation Comments MAGNESIUM (BEAKER) (test code = 2.0 mg/dL 1.6-2.6 627) CBC W/PLT COUNT & AUTO [id number] 05:44:00 Test Item Value Reference Range Interpretation [...] PERCENT (BEAKER) (test code = 2801) TROPONIN [id number] 01:50:00 Test Item Value Reference Range Interpretation [...] acute neurological disease, and persistent tachyarrhythmia.BASIC METABOLIC [id number] 22:36:00 Test Item Value Reference Range Interpretation [...] PATIEN TS. CREATINE KINASE (CK), TOTAL AND [id number] 21:46:00 Test Item Value Reference Range Interpretation Comments CREATINE KINASE TOTAL (BEAKER) 82 U/L 29-200 (test code = 380) CREATINE KINASE-MB (BEAKER) (test 6.0 ng/mL 0.0-6.6 code = 750) CREATINE KINASE-MB INDEX (BEAKER) 7.3 % (test code = 395) CK-MB Reference Range:<6.7 Normal6.7-10.0 Borderline>10.0 AbnormalPT/[id number] 21:28:00 Test Item Value Reference Range Interpretation [...] mechanical heart valves.RAD, CHEST, 1 VIEW, NON [id number] 20:22:00Reason for exam:->SOBShould this be performed at [...] MDReport Verified Date/Time: 05/24/2018 20:22:32 Reading Location: [address] Reading Room
[2021-02-06] MEDS ORDERED: ONDANSETRON 4 MG/2 ML VIAL ONE ×2 (23:08→23:47)
[2021-02-06] MEDS ORDERED: FAMOTIDINE 20 MG/2 ML VIAL IV ONE (23:09)
[2021-02-06] MEDS ORDERED: MORPHINE 4 MG/ML SYR ONE (23:18)
[2021-02-06 23:28] LABS: Protime INR 0.88
[2021-02-06 23:30] LABS: Absolute Lymphocytes (CBC) 3.5 K/uL (0.7-4.9); Basophils % 0.6 % (0-1.3); Hematocrit 42.3 % (36.0-45.0); Lymphocytes % 20.1 % (15.3-44.8); MPV 7.9 fL (7.6-11.3); RBC Red Blood Cell Count 4.76 M/uL (3.86-4.86)
[2021-02-06 23:39] LABS: ALT/SGPT 27 U/L (12-78); AST/SGOT 24 U/L (15-37); Albumin 3.9 g/dL (3.4-5.0); Alkaline Phosphatase 131 U/L (45-117); BUN Blood Urea Nitrogen 12 mg/dL (7-18); Bicarbonate 25 mmol/L (21-32); Bilirubin Direct 0.1 mg/dL (0-0.2); Bilirubin Total 0.3 mg/dL (0.2-1.0); Glucose Level 173 mg/dL (74-106); Lipase 66 U/L (73-393); Magnesium 1.9 mg/dL (1.8-2.4); NT PRO-BNP 55 pg/mL (<125); Potassium 3.5 mmol/L (3.5-5.1); Protein, Total 7.8 g/dL (6.4-8.2); Sodium Level 134 mmol/L (136-145); Troponin (Emerg Dept Use Only) < 0.02 ng/mL (0.0-0.045)
[2021-02-06] MEDS ORDERED: NA CHLORIDE 0.9% 0 ML ONE (23:47)
[2021-02-06] MEDS ORDERED: NA CHLORIDE 0.9% 500 ML ONE (23:49)
[2021-02-07] MEDS ORDERED: LABETALOL 20 MG/4ML SYRINGE IV ONE (00:07)
--- NOTE | 2021-02-07 01:10 | ER ---
Nurse's Notes [facility] Name: Ansley Henderson Age: 60 yrs Sex: Female : 1960 Arrival Date: 02/06/2021 Time: 22:48 Bed 6 Private MD: Diagnosis: Chest pain, unspecified;Nausea and vomiting;Unspecified abdominal pain Presentation: 02/06 22:48 Chief complaint: EMS states: they were called for nausea and vomiting 1 hour prior to 8 arrival. Patient was drinking something and started to have nausea and vomiting. Complaining of chest pain and SOB upon arrival. Dry heaving upon arrival. Coronavirus screen: Client denies travel out of the [place] in the last 14 days. cough unrelated to allergies, difficulty breathing, nausea, vomiting. Client presents with at least one sign or symptom that may indicate coronavirus-19. Ebola Screen: Patient negative for fever greater than or equal to 101.5 degrees Fahrenheit, and additional compatible Ebola Virus Disease symptoms Patient denies exposure to infectious person. Patient denies travel to an Ebola-affected area in the 21 days before illness onset. Initial Sepsis Screen: Does the patient meet any 2 criteria? HR > 90 bpm. Does the patient have a suspected source of infection? No. Patient's initial sepsis screen is negative. Risk Assessment: Do you want to hurt yourself or someone else? Patient reports no desire to harm self or others. Onset of symptoms was February 06, 2021 at 21:30. 22:48 Method Of Arrival: EMS: [facility] 22:48 Acuity: ENMANUEL 2 8 Triage Assessment: 22:59 General: Appears distressed, uncomfortable, Behavior is calm, cooperative, appropriate [facility] for age. Pain: Complains of pain in chest Pain currently is 5 out of 10 on a pain scale. Quality of pain is described as heavy, Pain began 1 hour ago. Alleviated by medications, Also complains of nausea, shortness of breath. EENT: No deficits noted. No signs and/or symptoms were reported regarding the EENT system. 23:00 Neuro: No deficits noted. Level of Consciousness is awake, alert, obeys commands, jm8 Oriented to person, place, time. Cardiovascular: Reports chest pain, Rhythm is sinus rhythm Chest pain is described as diffuse, Pain is 5 out of 10 on a pain scale. quality is pressure. Respiratory: Reports shortness of breath at rest Airway is patent Trachea midline Respiratory effort is even, unlabored, Respiratory pattern is regular, symmetrical, Breath sounds are clear the patient has moderate shortness of breath. GI: Pt is actively vomiting dry heaving Reports nausea, vomiting. : No deficits noted. No signs and/or symptoms were reported regarding the genitourinary system. Derm: No deficits noted. No signs and/or symptoms reported regarding the dermatologic system. Skin is intact, is healthy with good turgor, Skin is diaphoretic, Skin is pink, warm \T\ dry. Skin temperature is cold. Derm: Skin is clammy. Musculoskeletal: No deficits noted. No signs and/or symptoms reported regarding the musculoskeletal system. Historical: - Allergies: 22:58 No Known Allergies; jm8 - Home Meds: 22:58 albuterol sulfate 90 mcg/actuation Inhl HFAA 1 puff every 4 hours [Active]; aspirin 81 jm8 mg Oral TbEC 1 tab once daily [Active]; lisinopril 20 mg Oral tab 1 tab once daily [Active]; prednisone 20 mg Oral tab 1 tab 2 times per day [Active]; ranitidine HCl 150 mg Oral tab 1 tab once daily [Active]; tiotropium bromide inhalation once daily [Active]; - PMHx: 22:58 CAD; COPD; CVA; GERD; HEART STENT; Hypertension; jm8 - PSHx: 22:58 Heart stents; jm8 - Immunization history:: Adult Immunizations up to date. - Social history:: Patient uses street drugs, marijuana, Smoking status: Patient denies any tobacco usage or history of. Screenin:03 Abuse screen: Denies threats or abuse. Denies injuries from another. Nutritional [facility] screening: No deficits noted. Tuberculosis screening: No symptoms or risk factors identified. Fall Risk None identified. IV access (20 points). Assessment: 23:03 Reassessment: see triage assessment. 8 02/07 00:04 Reassessment: Patient and/or family updated on plan of care and expected duration. Pain ad5 level reassessed. Patient is alert, oriented x 3, equal unlabored respirations, skin warm/dry/pink. Patient states feeling better. 02:04 Reassessment: Patient and/or family updated on plan of care and expected duration. Pain ad5 level reassessed. Patient is alert, oriented x 3, equal unlabored respirations, skin warm/dry/pink. Patient states symptoms have improved. Vital Signs: 02/06 22:48 BP 205 / 102; Pulse 95; Resp 20; Temp 97.7; Pulse Ox 95% on R/A; Weight 58.97 kg; jm8 Height 5 ft. 1 in. (154.94 cm); Pain 10/10; 02/07 00:03 BP 172 / 72; Pulse 76; Resp 18; Pulse Ox 98% on 3 lpm NC; ad5 01:16 BP 159 / 73; Pulse 74; Resp 18 S; Pulse Ox 98% on 3 lpm NC; Pain 5/10; ad5 02:04 BP 129 / 55; Pulse 77; Resp 16 S; Pulse Ox 98% on 3 lpm NC; Pain 4/10; ad5 02/06 22:48 Body Mass Index 24.56 (58.97 kg, 154.94 cm) jm8 ED Course: 02/06 22:48 Patient arrived in ED. jm8 22:51 Jacinda Medina MD is Attending Physician. ma2 22:52 Gil Anton PA is PHCP. cp 22:56 Channing Dee is Primary Nurse. ad5 22:56 Triage completed. jm8 23:04 Patient has correct armband on for positive identification. Call light in reach. Side jm8 rails up X2. 23:04 Arm band placed on right wrist. jm8 23:04 Inserted saline lock: 20 gauge in left hand, using aseptic technique. jm8 23:18 No provider procedures requiring assistance completed. Initial lab(s) drawn, by me, ad5 sent to lab. COVID swab sent to lab. 23:32 XRAY Chest (1 view) In Process Unspecified. EDMS 02/07 00:44 CT Aorta for Dissection Sent. ad5 00:52 CT Aorta for Dissection In Process Unspecified. EDMS 01:08 Manuel Andrade FNP-C is Hospitalizing Provider. cp 01:10 Isai Brown DO is Hospitalizing Provider. la1 02:46 Patient admitted, IV remains in place. ad5 Administered Medications: 02/06 22:56 Drug: Zofran (Ondansetron) 4 mg Route: IVP; Site: left hand; ad5 23:32 Follow up: Response: No adverse reaction ad5 22:56 Drug: Pepcid (famotidine) 20 mg Route: IVP; Site: left hand; ad5 23:32 Follow up: Response: No adverse reaction ad5 23:08 Drug: morphine 4 mg Route: IVP; Site: left hand; jm8 23:32 Follow up: Response: No adverse reaction ad5 23:34 Follow up: Response: No adverse reaction; Pain is decreased [facility] 23:30 Drug: NS 0.9% 500 ml Route: IV; Rate: bolus; Site: left hand; 8 02/07 01:09 Follow up: IV Status: Completed infusion; IV Intake: 500ml ad5 02/06 23:31 Drug: Zofran (Ondansetron) 4 mg Route: IVP; Site: left hand; [facility] 02/07 00:03 Follow up: Response: No adverse reaction; Nausea is decreased ad5 02/06 23:55 Drug: Trandate (labetalol) 20 mg Route: IVP; Site: left hand; ad5 02/07 00:44 Follow up: Response: No adverse reaction ad5 01:08 Drug: Zofran (Ondansetron) 4 mg Route: IVP; Site: left forearm; ad5 02:05 Follow up: Response: No adverse reaction; Nausea is decreased ad5 01:08 Drug: morphine 4 mg {Note: RASS 0.} Route: IVP; Site: left forearm; ad5 02:05 Follow up: Response: No adverse reaction; Pain is decreased; RASS: Alert and Calm (0) ad5 01:52 Drug: Cipro (ciprofloxacin) 400 mg Volume: 200 ml; Route: IVPB; Infused Over: 60 mins; jm8 Site: left forearm; 01:52 Drug: Flagyl (metroNIDAZOLE) 500 mg Volume: 100 ml; Route: IVPB; Rate: 200 ml/hr; jm8 Infused Over: 30 mins; Site: left hand; Intake: 01:09 IV: 500ml; Total: 500ml. ad5 Outcome: 01:08 Decision to Hospitalize by Provider. cp 02:45 Admitted to ER Hold. Please see [facility] for further documentation. ad5 02:45 Condition: stable 02:45 Instructed on the need for admit, Demonstrated understanding of instructions. 07:51 Patient left the ED. hb Signatures: Dispatcher [employer] EDMS Manuel Andrade, MEDICATION AIDE-C MEDICATION AIDE-Cla1 Gil Anton PA PA cp Baxter, Heather, RN RN Jacinda Medina MD MD md2 Yong Ko RN RN jm8 Channing Dee Corrections: (The following items were deleted from the chart) 02/06 23:03 22:59 Pain: Complains of pain in chest Pain currently is 10 out of 10 on a pain scale. jm8 Quality of pain is described as heavy, Pain began 1 hour ago. Alleviated by medications, Also complains of nausea, shortness of breath, jm8
--- NOTE | 2021-02-07 01:10 | EDPHYS ---
Physician Documentation [facility] Name: Ansley Henderson Age: 60 yrs Sex: Female : 1960 Arrival Date: 02/06/2021 Time: 22:48 Bed 6 Private MD: ED Physician Jacinda Medina HPI: 02/06 22:55 This 60 yrs old Female presents to ER via EMS with complaints of Nausea and cp Vomiting. 22:55 The patient or guardian reports chest pain that is located primarily in the substernal cp area. Onset: suddenly, just prior to arrival. The pain does not radiate. Associated signs and symptoms: Pertinent positives: nausea, vomiting. Historical: - Allergies: 22:58 No Known Allergies; jm8 - Home Meds: 22:58 albuterol sulfate 90 mcg/actuation Inhl HFAA 1 puff every 4 hours [Active]; aspirin 81 jm8 mg Oral TbEC 1 tab once daily [Active]; lisinopril 20 mg Oral tab 1 tab once daily [Active]; prednisone 20 mg Oral tab 1 tab 2 times per day [Active]; ranitidine HCl 150 mg Oral tab 1 tab once daily [Active]; tiotropium bromide inhalation once daily [Active]; - PMHx: 22:58 CAD; COPD; CVA; GERD; HEART STENT; Hypertension; jm8 - PSHx: 22:58 Heart stents; jm8 - Immunization history:: Adult Immunizations up to date. - Social history:: Patient uses street drugs, marijuana, Smoking status: Patient denies any tobacco usage or history of. ROS: 23:00 Constitutional: Negative for body aches, chills, fever. cp 23:00 Eyes: Negative for injury, pain, redness, and discharge. cp 23:00 Cardiovascular: Positive for chest pain, Negative for edema, palpitations. 23:00 Respiratory: Negative for cough, shortness of breath, wheezing. 23:00 Abdomen/GI: Positive for nausea and vomiting, Negative for diarrhea, constipation, hematemesis. 23:00 Back: Negative for radiated pain. Exam: 22:57 ECG was reviewed by the Attending Physician. cp 23:05 Constitutional: The patient appears alert, awake, non-toxic, well developed, well cp nourished, in obvious distress, mildly distressed, uncomfortable. 23:05 Head/Face: Normocephalic, atraumatic. cp 23:05 Eyes: Periorbital structures: appear normal, Conjunctiva: normal, no exudate, no cp injection, Sclera: no appreciated abnormality, Lids and lashes: appear normal, bilaterally. 23:05 ENT: External ear(s): are unremarkable, Nose: is normal, Mouth: Lips: moist, Oral cp mucosa: moist, Posterior pharynx: Airway: no evidence of obstruction, patent. 23:05 Neck: ROM/movement: is normal, is supple, without pain, no range of motions limitations. 23:05 Chest/axilla: Inspection: normal, Palpation: is normal, no crepitus, no tenderness. 23:05 Cardiovascular: Rate: normal, Rhythm: regular, Pulses: Pulses are 2+ in right radial artery and left radial artery. Edema: is not appreciated, JVD: is not appreciated. 23:05 Respiratory: the patient does not display signs of respiratory distress, Respirations: normal, no use of accessory muscles, no retractions, labored breathing, is not present, Breath sounds: are clear throughout, no decreased breath sounds. 23:05 Abdomen/GI: Inspection: abdomen appears normal, Palpation: soft, in all quadrants, moderate abdominal tenderness, in the epigastric area, rebound tenderness, is not appreciated, involuntary guarding, is elicited in the epigastric area. 23:05 Neuro: Orientation: to person, place \T\ time. Mentation: is normal. Vital Signs: 22:48 BP 205 / 102; Pulse 95; Resp 20; Temp 97.7; Pulse Ox 95% on R/A; Weight 58.97 kg; jm8 Height 5 ft. 1 in. (154.94 cm); Pain 06/24; 02/07 00:03 BP 172 / 72; Pulse 76; Resp 18; Pulse Ox 98% on 3 lpm NC; ad5 01:16 BP 159 / 73; Pulse 74; Resp 18 S; Pulse Ox 98% on 3 lpm NC; Pain 5/10; ad5 02:04 BP 129 / 55; Pulse 77; Resp 16 S; Pulse Ox 98% on 3 lpm NC; Pain 4/10; ad5 02/06 22:48 Body Mass Index 24.56 (58.97 kg, 154.94 cm) 8 MDM: 02/06 22:54 Patient medically screened. 02/07 01:10 Data reviewed: vital signs, nurses notes, lab test result(s), EKG, radiologic studies, cp CT scan, plain films. 02/06 22:54 Order name: Basic Metabolic Panel; Complete Time: 23:43 02/06 23:43 Interpretation: Normal except: NA 134; GLUC 173. 02/06 22:54 Order name: CBC with Diff; Complete Time: 23:43 02/07 00:17 Interpretation: Normal except: WBC 17.70; BASHIR% 76.4; MN% 2.7; NEUT A 13.5. 02/06 22:54 Order name: LFT's; Complete Time: 23:43 02/07 00:17 Interpretation: Normal except: ALK 131; GLOB 3.9; A/G 1.0. 02/06 22:54 Order name: Magnesium; Complete Time: 23:43 02/06 22:54 Order name: NT PRO-BNP; Complete Time: 23:43 02/06 22:54 Order name: PT-INR; Complete Time: 23:43 02/06 22:54 Order name: Troponin (emerg Dept Use Only); Complete Time: 23:43 02/07 00:18 Interpretation: TROPED < 0.02; Reviewed. 02/06 22:54 Order name: Lipase; Complete Time: 23:43 02/07 00:08 Order name: SARS-COV-2 RT PCR; Complete Time: 00:17 [facility] 02/07 00:17 Interpretation: Results reviewed. 02/07 01:44 Order name: Procalcitonin; Complete Time: 02:32 [facility] 02/07 04:59 Order name: CBC with Automated Diff [facility] 02/07 05:34 Order name: Manual Differential [facility] 02/07 05:40 Order name: Comprehensive Metabolic Panel [facility] 02/06 22:54 Order name: XRAY Chest (1 view) 02/06 22:54 Order name: EKG; Complete Time: 22:55 02/06 23:45 Order name: CT Aorta for Dissection 02/07 05:40 Order name: T4 Free [facility] 02/07 05:40 Order name: Magnesium [facility] 02/07 05:40 Order name: Thyroid Stimulating Hormone [facility] 02/06 22:54 Order name: Cardiac monitoring; Complete Time: 22:57 cp 02/06 22:54 Order name: EKG - Nurse/Tech; Complete Time: :57 cp 02/06 22:54 Order name: IV Saline Lock; Complete Time: :57 cp 02/06 22:54 Order name: Labs collected and sent; Complete Time: 23:06 cp 02/06 22:54 Order name: O2 Per Protocol; Complete Time: 23:06 cp 02/06 22:54 Order name: O2 Sat Monitoring; Complete Time: :57 cp EC/25 22:57 Rate is 95 beats/min. Rhythm is regular. MD interval is normal. QRS interval is normal. cp QT interval is normal. T waves are Inverted in lead aVR. Interpreted by me. Reviewed by me. Administered Medications: 22:56 Drug: Zofran (Ondansetron) 4 mg Route: IVP; Site: left hand; ad5 23:32 Follow up: Response: No adverse reaction ad5 22:56 Drug: Pepcid (famotidine) 20 mg Route: IVP; Site: left hand; ad5 23:32 Follow up: Response: No adverse reaction ad5 23:08 Drug: morphine 4 mg Route: IVP; Site: left hand; 8 23:32 Follow up: Response: No adverse reaction ad5 23:34 Follow up: Response: No adverse reaction; Pain is decreased [facility] 23:30 Drug: NS 0.9% 500 ml Route: IV; Rate: bolus; Site: left hand; [facility] 02/07 01:09 Follow up: IV Status: Completed infusion; IV Intake: 500ml ad5 02/06 23:31 Drug: Zofran (Ondansetron) 4 mg Route: IVP; Site: left hand; 8 02/07 00:03 Follow up: Response: No adverse reaction; Nausea is decreased ad5 02/06 23:55 Drug: Trandate (labetalol) 20 mg Route: IVP; Site: left hand; ad5 02/07 00:44 Follow up: Response: No adverse reaction ad5 01:08 Drug: Zofran (Ondansetron) 4 mg Route: IVP; Site: left forearm; ad5 02:05 Follow up: Response: No adverse reaction; Nausea is decreased ad5 01:08 Drug: morphine 4 mg {Note: RASS 0.} Route: IVP; Site: left forearm; ad5 02:05 Follow up: Response: No adverse reaction; Pain is decreased; RASS: Alert and Calm (0) ad5 01:52 Drug: Cipro (ciprofloxacin) 400 mg Volume: 200 ml; Route: IVPB; Infused Over: 60 mins; jm8 Site: left forearm; 01:52 Drug: Flagyl (metroNIDAZOLE) 500 mg Volume: 100 ml; Route: IVPB; Rate: 200 ml/hr; jm8 Infused Over: 30 mins; Site: left hand; Disposition: 02/07/21 01:08 Hospitalization ordered by Isai Brown for Observation. Preliminary diagnosis are Chest pain, unspecified, Nausea and vomiting, Unspecified abdominal pain. - Bed requested for Telemetry/MedSurg (observation). - Status is Observation. hb - Condition is Stable. - Problem is new. - Symptoms have improved. Signatures: Dispatcher [employer] EDWI Edwige Mendez RN RN mw Williams, Irene, RN RN iw Attema, Lee, HORTICULTURAL SERVICES SUPERVISOR-C HORTICULTURAL SERVICES SUPERVISOR-[facility] Gil Anton PA PA cp Annika Rivers RN RN Yong Ko RN RN jm8 Channing Dee ad5 Corrections: (The following items were deleted from the chart) 02/06 23:17 22:55 CORONAVIRUS+.JACKELYN ordered. [facility] 02/07 01:09 01:08 Hospitalization Ordered by Manuel PLAZAP-C for Observation. Preliminary cp diagnosis is Chest pain, unspecified; Nausea and vomiting. Bed requested for Telemetry/MedSurg (observation). Status is Observation. Condition is Stable. Problem is new. Symptoms have improved. cp 01:10 01:09 02/07/2021 01:08 Hospitalization Ordered by Manuel PLAZAP-C for Observation. la1 Preliminary diagnosis is Chest pain, unspecified; Nausea and vomiting; Unspecified abdominal pain. Bed requested for Telemetry/MedSurg (observation). Status is Observation. Condition is Stable. Problem is new. Symptoms have improved. cp 02:38 01:10 02/07/2021 01:08 Hospitalization Ordered by Isai Brown DO for Observation. iw Preliminary diagnosis is Chest pain, unspecified; Nausea and vomiting; Unspecified abdominal pain. Bed requested for Telemetry/MedSurg (observation). Status is Observation. Condition is Stable. Problem is new. Symptoms have improved. la1 04:28 02:38 02/07/2021 01:08 Hospitalization Ordered by Isai Brown DO for Observation. mw Preliminary diagnosis is Chest pain, unspecified; Nausea and vomiting; Unspecified abdominal pain. Bed requested for [facility] ER HOLD. Status is Observation. Condition is Stable. Problem is new. Symptoms have improved. iw 07:51 04:28 02/07/2021 01:08 Hospitalization Ordered by Isai Brown DO for Observation. hb Preliminary diagnosis is Chest pain, unspecified; Nausea and vomiting; Unspecified abdominal pain. Bed requested for Telemetry/MedSurg (observation). Status is Observation. Condition is Stable. Problem is new. Symptoms have improved. mw
[2021-02-07] MEDS ORDERED: ONDANSETRON 4 MG/2 ML VIAL ONE (01:20)
[2021-02-07] MEDS ORDERED: MORPHINE 4 MG/ML SYR ONE (01:20)
[2021-02-07] MEDS ORDERED: METRONIDAZOLE 500mg IVPB 500 MG/100 ML BAG IV ONE (02:04)
[2021-02-07] MEDS ORDERED: CIPROFLOXACIN 400mg IV 400 MG/200 ML BAG IV ONE (02:04)
[2021-02-07] MEDS ORDERED: ACETAMINOPHEN 500 MG TAB PO PRN (02:17)
[2021-02-07] MEDS ORDERED: ONDANSETRON 4 MG/2 ML VIAL IV PRN (02:17)
[2021-02-07] MEDS ORDERED: IPRATROPIUM BROM 0.5MG/2.5ML NEB PRN (02:17)
[2021-02-07] MEDS ORDERED: ALBUTEROL 2.5 MG/3 ML NEB SOL NEB PRN ×2 (02:17→11:00)
[2021-02-07] MEDS ORDERED: MORPHINE 2 MG/ML SYR IV PRN (02:17)
--- NOTE | 2021-02-07 02:17 | P.HP ---
Certification for Inpatient Patient admitted to: Observation With expected LOS: <2 Midnights Patient will require the following post-hospital care: None Practitioner: I am a practitioner with admitting privileges, knowledge of patient current condition, hospital course, and medical plan of care. Services: Services provided to patient in accordance with Admission requirements found in Title 42 Section 412.3 of the Code of Federal Regulations Patient History Date of Service: 02/07/21 Primary Care Provider: none Reason for admission: Enteritis, vomiting History of Present Illness: 60-year-old female with history of CAD, COPD, CVA, GERD, hypertension presents emergency department for abdominal pain and vomiting. Patient reports that pain and vomiting began today. Patient also admits to drinking approximately 1 6 pack per day, last beverage was yesterday in the afternoon. Labs significant for white blood cell count 17.7 [address] chest abdomen pelvis with contrast demonstrates mild wall thickening involving loops of the small bowel in the left abdomen representing likely nonspecific enteritis. Also noted approximately 50 % stenosis of the left common iliac artery and 40% stenosis of the right common iliac artery. Patient not tolerating p.o., still actively vomiting, ED provider wishes to admit under observation for further evaluation and management. Allergies No Known Allergies Allergy (Verified 08/16/18 01:17) Home Medications: Aspirin [Adult Aspirin] 81 mg PO DAILY 07/31/18 Albuterol Sulfate [Proair Hfa] 2 puff IH Q2H PRN 08/16/18 Tiotropium Br/Olodaterol HCl [Stiolto Respimat Inhal Crane] 2 spray IH DAILY 08/16/18 Tiotropium Bolton [Spiriva Respimat] 2 spray IH DAILY 08/16/18 lisinopriL [Lisinopril] 1 tab PO DAILY 08/16/18 raNITIdine HCL [Heartburn Relief] 1 tab PO DAILY 08/16/18 Ipratropium Neb [Atrovent*] 1 amp IH Q6H PRN 30 Days amp 08/17/18 Theophylline [Kirill-Dur] 200 mg PO BID #120 tab 08/17/18 predniSONE [Prednisone] 20 mg PO BID #60 tablet 08/17/18 - Past Medical/Surgical History Diabetic: No -: Hypertension -: Coronary artery disease, stent -: COPD on home oxygen and chronic steroids -: hx Tobacco abuse -: GERD -: Gastric ulcers -: -: Stent placement Psychosocial/ Personal History: The patient is . She has 5 children. She currently lives by herself. She recently moved to the area from [place]. - Family History Mother -: Heart disease, Cancer - Social History Smoking Status: Former smoker Alcohol use: Yes CD- Drugs: Yes Caffeine use: Yes Place of Residence: Home Review of Systems 10-point ROS is otherwise unremarkable Respiratory: Shortness of Breath Gastrointestinal: Nausea, Vomiting, Abdominal Pain Physical Examination - Physical Exam General: Alert, In no apparent distress, Oriented x3 HEENT: Atraumatic, PERRLA, Mucous membr. moist/pink, EOMI, Sclerae nonicteric Neck: Supple, 2+ carotid pulse no bruit, No LAD, Without JVD or thyroid abnormality Respiratory: Clear to auscultation bilaterally, Normal air movement Cardiovascular: Regular rate/rhythm, Normal S1 S2 Gastrointestinal: Normal bowel sounds, Tenderness (Mild left-sided abdominal tenderness noted on exam) Musculoskeletal: No tenderness Integumentary: No rashes Neurological: Normal speech, Normal strength at 5/5 x4 extr, Normal tone, Normal affect - Studies Laboratory Data (last 24 hrs) 02/06/21 22:57: PT 10.1, INR 0.88 02/06/21 22:57: WBC 17.70 H, Hgb 14.0, Hct 42.3, Plt Count 330 02/06/21 22:57: Sodium 134 L, Potassium 3.5, BUN 12, Creatinine 0.57, Glucose 173 H, Magnesium 1.9, Total Bilirubin 0.3, AST 24, ALT 27, Alkaline Phosphatase 131 H, Lipase 66 L Assessment and Plan - Plan Assessment Abdominal pain, vomiting secondary to enteritis Chronic alcohol abuse Chronic COPD on home oxygen and chronic steroid therapy CAD status post stent GERD Hypertension Plan Abdominal pain, vomiting secondary to enteritis: NPO, advanced to clears as tolerated. IV Cipro/Flagyl. Protonix. Daily labs, leukocytosis noted to be contributing by chronic steroid use as well. Serial abdominal exams, mild left- sided tenderness noted. DVT prophylaxis Lovenox 40 mg subcutaneous once daily. Chronic alcohol abuse: Patient reports drinking approximately a 6 pack per day for the last year or 2, last beverage was 02/06/21. Will need to monitor for signs of withdrawal. Chronic COPD on home oxygen and chronic steroid therapy: Continue steroids, inhalers, oxygen. No acute exacerbation noted. CAD status post stent: Continue aspirin GERD: Protonix. Hypertension: Continue home medications once verified. Discharge Plan: Home Plan to discharge in: 24 Hours - Advance Directives Does patient have a Living Will: No Does patient have a Durable POA for Healthcare: Yes - Code Status/Comfort Care Code Status Assessed: Yes (Full code) Critical Care: No Time Spent Managing Pts Care (In Minutes): 55
[2021-02-07 02:35] VITALS: BMI 24.5
[2021-02-07] MEDS ORDERED: LORazepam 2 MG/ML VIAL IV PRN (02:59)
[2021-02-07] MEDS ORDERED: NA CHLORIDE 0.9% 1,000 ML IV SCH (03:00)
[2021-02-07] MEDS ORDERED: LORazepam 2 MG/ML VIAL ONE (03:17)
[2021-02-07] MEDS ORDERED: NA CHLORIDE 0.9% 1,000 ML ONE (03:23)
[2021-02-07 04:57] LABS: Absolute Lymphocytes (CBC) 0.3 K/uL (0.7-4.9); Basophils % 0.2 % (0-1.3); Hematocrit 35.2 % (36.0-45.0); Lymphocytes % 3.7 % (15.3-44.8); MPV 7.6 fL (7.6-11.3)
[2021-02-07 05:19] LABS: ALT/SGPT 21 U/L (12-78); AST/SGOT 14 U/L (15-37); BUN Blood Urea Nitrogen 13 mg/dL (7-18); Bicarbonate 26 mmol/L (21-32); Glucose Level 120 mg/dL (74-106); Potassium 3.6 mmol/L (3.5-5.1); Sodium Level 138 mmol/L (136-145)
[2021-02-07 05:20] LABS: Alkaline Phosphatase 92 U/L (45-117); Bilirubin Total 0.4 mg/dL (0.2-1.0); Magnesium 1.8 mg/dL (1.8-2.4); Protein, Total 5.9 g/dL (6.4-8.2)
[2021-02-07 05:33] LABS: Blood Morphology Comment NOT SEEN (NOT SEEN); Platelet Estimate ADEQ
[2021-02-07] MEDS ORDERED: PANTOPRAZOLE 40MG TABLET PO SCH (06:30)
[2021-02-07] MEDS ORDERED: PANTOPRAZOLE 40MG TABLET PO ONE (06:52)
--- NOTE | 2021-02-07 08:57 | RAD REPORT ---
EXAM DESCRIPTION: RAD - Chest Single View - 02/06/2021 11:32 pm CLINICAL HISTORY: CHEST PAIN Chest pain. COMPARISON: Chest Single View dated 11/10/2020; Chest Single View dated 01/16/2020; Chest Single View d ated 08/15/2018; Chest Single View dated 07/30/2018 FINDINGS: Portable technique limits examination quality. The lungs are grossly clear. The heart is normal in size. No displaced fractures. IMPRESSION: No acute intrathoracic process suspected.
[2021-02-07] MEDS ORDERED: DULERA 100/5 (MOMETASONE/FORMOTEROL) INHALER IH SCH (09:00)
[2021-02-07] MEDS ORDERED: CIPROFLOXACIN 400mg IV 400 MG/200 ML BAG IV SCH (09:00)
[2021-02-07] MEDS ORDERED: LACTOBACILLUS/ACIDOPHILUS TAB PO SCH (09:00)
[2021-02-07] MEDS ORDERED: ASPIRIN EC 81 MG TAB PO SCH (09:00)
[2021-02-07] MEDS ORDERED: ENOXAPARIN 40 MG/0.4 ML SQ SCH (09:00)
[2021-02-07] MEDS ORDERED: METRONIDAZOLE 500mg IVPB 500 MG/100 ML BAG IV SCH (09:00)
[2021-02-07] MEDS ORDERED: predniSONE 10 MG TAB PO SCH (09:00)
[2021-02-07 09:21] VITALS: O2SAT 100
--- NOTE | 2021-02-07 10:41 | P.DS ---
Admission Date: 02/07/21 Discharge Date: 02/07/21 Primary Care Provider: none Disposition: ROUTINE DISCHARGE Discharge Condition: GOOD Reason for Admission: Enteritis, vomiting Consultations: none Procedures: COVID: [Negative] CXR: COMPARISON: Chest Single View dated 11/10/2020; Chest Single View dated 01/16/2020; Chest Single View dated 08/15/2018; Chest Single View dated 07/30/2018 FINDINGS: Portable technique limits examination quality. The lungs are grossly clear. The heart is normal in size. No displaced fractures. IMPRESSION: No acute intrathoracic process suspected. CT Scan: FINDINGS: Chest: Thyroid: No abnormalities of the visualized thyroid. Great Vessels: Great vessels have normal anatomic configuration. Thoracic Aorta: Atherosclerotic calcification of normal caliber thoracic aorta. No dissection.. Pulmonary arteries: The main pulmonary artery is not dilated. Heart: Coronary artery atherosclerosis. No cardiomegaly or significant pericardial effusion. Lymph Nodes: No enlarged mediastinal lymph nodes identified. Esophagus: No abnormalities of the esophagus identified Other: No additional findings. Lungs: Centrilobular emphysematous change. No confluent airspace consolidation Pleura: No pleural effusion or pneumothorax. Trachea/Airways: No abnormalities of the visualized trachea or airways. Abdomen: Liver: Hepatomegaly and decreased density. No intrahepatic mass or biliary dilatation. Gallbladder: No calcified gallstones. Spleen, Pancreas, and Adrenal Glands: The spleen, pancreas, and adrenal glands are unremarkable. Kidneys: The kidneys have normal size and contour without evidence of solid mass or hydronephrosis. Vasculature: The abdominal aorta is normal caliber without evidence of aneurysm or dissection. Calcified and noncalcified atherosclerotic plaque. Approximately 50% stenosis of the left common iliac artery on the basis of calcified atherosclerotic plaque. Proximally 40% stenosis of the right common iliac artery on the basis of calcified atherosclerotic plaque. The external iliac arteries are patent with mild atherosclerotic plaque. Mild atherosclerotic plaque of the common femoral arteries without flow-limiting stenosis. The proximal superficial femoral arteries are patent without flow-limiting stenosis. The internal iliac and profunda femoral arteries are patent. The celiac, superior mesenteric, and inferior mesenteric arteries are patent without stenosis or occlusion. Mild ostial plaque origin of the renal arteries bilaterally. No flow-limiting stenosis. The portal vein is patent. The proximal visceral and renal arteries are patent. Stomach: The stomach and duodenum have normal course. Other: No free intraperitoneal air. No free fluid or lymphadenopathy. Pelvis: Bladder: Urinary bladder is unremarkable. Bowel: No dilated loops of large or small bowel. Mild wall thickening involving loops of small bowel in the left abdomen. Scattered diverticula of the colon. Appendix: Normal appendix. Pelvis: Uterus is not enlarged. Bones: No destructive bone lesions identified. IMPRESSION: 1. No evidence of aortic dissection or aneurysm. No pulmonary embolus. 2. Approximately 50% stenosis of the left common iliac artery and 40% stenosis of the right common iliac artery on the basis of calcified atherosclerotic plaque. 3. Mild wall thickening involving loops of small bowel in the left abdomen. This may represent nonspecific enteritis. 4. Hepatomegaly and hepatic steatosis. 5. Centrilobular emphysematous change. 6. Coronary artery atherosclerosis. Medical Problem List: Abdominal pain, vomiting secondary to enteritis Chronic alcohol abuse Chronic COPD on home oxygen and chronic steroid therapy CAD status post stent GERD Hypertension PVD Brief History of Present Illness: History of Present Illness: 60-year-old female with history of CAD, COPD, CVA, GERD, hypertension presents emergency department for abdominal pain and vomiting. Patient reports that pain and vomiting began today. Patient also admits to drinking approximately 1 6 pack per day, last beverage was yesterday in the afternoon. Labs significant for white blood cell count 17.7 [address] chest abdomen pelvis with contrast demonstrates mild wall thickening involving loops of the small bowel in the left abdomen representing likely nonspecific enteritis. Also noted approximately 50 % stenosis of the left common iliac artery and 40% stenosis of the right common iliac artery. Patient not tolerating p.o., still actively vomiting, ED provider wishes to admit under observation for further evaluation and management. Hospital Course: Patient presented with abdominal pain, nausea secondary to enteritis. Patient was admitted for observation. Patient given and started on IV antibiotic therapy. Her diet was advanced. Patient doing well at this time. At discharge patient will continue with Cipro 500 mg 1 pill twice daily and Flagyl 500 mg 3 times a day for 7 days. Lactobacillus 3 times a day also provided. Recommend follow-up with PCP to further monitor and address. Patient would benefit with GI evaluation as an outpatient in 4 to 6 weeks with possible outpatient colonoscopy to further address. Education on enteritis provided. Patient with chronic alcohol abuse. Alcohol cessation education provided. Patient with chronic COPD on chronic oxygen and chronic steroids. At discharge she will continue with her current COPD medicationStiolto 2 sprays once daily, theophylline 200 mg 1 pill twice daily and prednisone 20 mg twice daily, Albuterol 2 puffs 3 times a day as needed for shortness of breath and Atrovent 1 puff 3 times a day as needed. At discharge she will continue with home oxygen. Patient currently on 2 L per nasal cannula. Recommend follow-up with pulmonology to further monitor and adjust her medication. Patient with CAD and prior stent. At discharge she will continue with aspirin daily. Patient with GERD. At discharge she will continue with Protonix 40 mg daily. Patient with hypertension. At discharge she will continue with her current medicationlisinopril once daily. Recommend to maintain blood pressure less than 130/80. Further adjustment can be done by her PCP. Patient with chronic pain and prior fracture to the right humerus. Patient is to follow-up with orthopedics as an outpatient to further address. Fall precautions in place. Patient with PVD. Follow up with PCP and Cardiology to further address. Vital Signs/Physical Exam: Temp Pulse Resp BP Pulse Ox 98.6 F 81 20 145/71 H 95 02/07/21 08:00 02/07/21 08:00 02/07/21 08:00 02/07/21 08:00 02/07/21 08:00 General: Alert, In no apparent distress, Oriented x3, Cooperative HEENT: Atraumatic Neck: Supple Respiratory: Clear to auscultation bilaterally, Normal air movement Cardiovascular: Normal pulses, Regular rate/rhythm Gastrointestinal: Normal bowel sounds, No ascites, No tenderness, No masses, No rebound, No guarding Musculoskeletal: No erythema, No tenderness, No warmth Integumentary: No tenderness/swelling Neurological: Normal speech, Normal strength at 5/5 x4 extr, Normal tone, Normal affect, Other (Brace to the right humerus in place.) Laboratory Data at Discharge: WBC 9.40 K/uL (4.3-10.9) D 02/07/21 04:42 Hgb 11.9 g/dL (12.0-15.0) L 02/07/21 04:42 Hct 35.2 % (36.0-45.0) L D 02/07/21 04:42 Plt Count 173 K/uL (152-406) D 02/07/21 04:42 PT 10.1 SECONDS (9.5-12.5) 02/06/21 22:57 INR 0.88 02/06/21 22:57 Sodium 138 mmol/L (136-145) 02/07/21 04:42 Potassium 3.6 mmol/L (3.5-5.1) 02/07/21 04:42 BUN 13 mg/dL (7-18) 02/07/21 04:42 Creatinine 0.45 mg/dL (0.55-1.3) L 02/07/21 04:42 Glucose 120 mg/dL (74-106) H 02/07/21 04:42 Magnesium 1.8 mg/dL (1.8-2.4) 02/07/21 04:42 Total Bilirubin 0.4 mg/dL (0.2-1.0) 02/07/21 04:42 AST 14 U/L (15-37) L 02/07/21 04:42 ALT 21 U/L (12-78) 02/07/21 04:42 Alkaline Phosphatase 92 U/L (45-117) 02/07/21 04:42 Lipase 66 U/L (73-393) L 02/06/21 22:57 Home Medications: Aspirin [Adult Aspirin] 81 mg PO DAILY 07/31/18 Albuterol Sulfate [Proair Hfa] 2 puff IH Q2H PRN 08/16/18 Tiotropium Br/Olodaterol HCl [Stiolto Respimat Inhal Thomson] 2 spray IH DAILY 08/16/18 lisinopriL [Lisinopril] 1 tab PO DAILY 08/16/18 Theophylline [Kirill-Dur*] 200 mg PO BID #120 tab 08/17/18 predniSONE [Prednisone] 20 mg PO BID #60 tablet 08/17/18 Ciprofloxacin HCl [Cipro 500 MG Tablet] 500 mg PO BID #14 tab 02/07/21 Lactobacillus Acidophilus [Acidophilus Lactobacilli] 1 each PO TID #90 capsule 02/07/21 Pantoprazole [Protonix Tab] 40 mg PO DAILY #30 tab 02/07/21 metroNIDAZOLE [Flagyl] 500 mg PO Q8H #21 tablet 02/07/21 New Medications: Lactobacillus Acidophilus [Acidophilus Lactobacilli] 1 each PO TID #90 capsule Ciprofloxacin HCl [Cipro 500 MG Tablet] 500 mg PO BID #14 tab metroNIDAZOLE [Flagyl] 500 mg PO Q8H #21 tablet Pantoprazole [Protonix Tab] 40 mg PO DAILY #30 tab Diet: AHA Activity: Ad cathy Followup: NONE,NONE [Primary Care Provider] - Time spent managing pt's care (in minutes): 55
[2021-02-07] MEDS ORDERED: POTASSIUM CL SA 10 MEQ TAB PO ONE (11:00)
[2021-02-07] MEDS ORDERED: MAGNESIUM SULFATE 1 gm IVPB 1 GM/100 ML BAG IV ONE (11:30)
--- NOTE | 2021-02-07 11:31 | RAD REPORT ---
EXAM DESCRIPTION: CTA of the chest, abdomen, and pelvis with contrast CLINICAL HISTORY: CHEST PAIN COMPARISON: 12/22/2017 TECHNIQUE: CTA of the chest, abdomen and pelvis performed following IV administration of iodinated c ontrast. 3-D/MIP reformatted images available. This exam was performed according to our departmental dose-optimization program, which includes automated exposure control, adjustment of the mA and/or kV according to patient size and/or use of iterative reconstruction technique. FINDINGS: Chest: Thyroid: No abnormalities of the visualized thyroid. Great Vessels: Great vessels have normal anatomic configuration. Thoracic Aorta: Atherosclerotic calcification of normal caliber thoracic aorta. No dissection.. Pulmonary arteries: The main pulmonary artery is not dilated. Heart: Coronary artery atherosclerosis. No cardiomegaly or significant pericardial effusion. Lymph Nodes: No enlarged mediastinal lymph nodes identified. Esophagus: No abnormalities of the esophagus identified Other: No additional findings. Lungs: Centrilobular emphysematous change. No confluent airspace consolidation Pleura: No pleural effusion or pneumothorax. Trachea/Airways: No abnormalities of the visualized trachea or airways. Abdomen: Liver: Hepatomegaly and decreased density. No intrahepatic mass or biliary dilatation. Gallbladder: No calcified gallstones. Spleen, Pancreas, and Adrenal Glands: The spleen, pancreas, and adrenal glands are unremarkable. Kidneys: The kidneys have normal size and contour without evidence of solid mass or hydronephrosis. Vasculature: The abdominal aorta is normal caliber without evidence of aneurysm or dissection. Calcif ied and noncalcified atherosclerotic plaque. Approximately 50% stenosis of the left common iliac andi ry on the basis of calcified atherosclerotic plaque. Proximally 40% stenosis of the right common jhony c artery on the basis of calcified atherosclerotic plaque. The external iliac arteries are patent wit h mild atherosclerotic plaque. Mild atherosclerotic plaque of the common femoral arteries without christina w-limiting stenosis. The proximal superficial femoral arteries are patent without flow-limiting steno sis. The internal iliac and profunda femoral arteries are patent. The celiac, superior mesenteric, an d inferior mesenteric arteries are patent without stenosis or occlusion. Mild ostial plaque origin of the renal arteries bilaterally. No flow-limiting stenosis. The portal vein is patent. The proximal visceral and renal arteries are patent. Stomach: The stomach and duodenum have normal course. Other: No free intraperitoneal air. No free fluid or lymphadenopathy. Pelvis: Bladder: Urinary bladder is unremarkable. Bowel: No dilated loops of large or small bowel. Mild wall thickening involving loops of small zac l in the left abdomen. Scattered diverticula of the colon. Appendix: Normal appendix. Pelvis: Uterus is not enlarged. Bones: No destructive bone lesions identified. IMPRESSION: 1. No evidence of aortic dissection or aneurysm. No pulmonary embolus. 2. Approximately 50% stenosis of the left common iliac artery and 40% stenosis of the right common iliac artery on the basis of calcified atherosclerotic plaque. 3. Mild wall thickening involving loops of small bowel in the left abdomen. This may represent nons pecific enteritis. 4. Hepatomegaly and hepatic steatosis. 5. Centrilobular emphysematous change. 6. Coronary artery atherosclerosis. Electronically signed by: Juan Diallo 02/07/2021 1:13 AM CDT Due to temporary technical issues with the PACS/Fluency reporting system, reports are being signed by the in house radiologist without review as a courtesy to ensure prompt reporting. The interpreting r adiologist is fully responsible for the content of the report.
--- NOTE | 2021-02-07 11:57 | EKG ---
Test Date: 2021-02-06 Test Time: 22:50:00 Data Capture Specialist: JESENIA MEASUREMENT RESULTS: Intervals: Rate: 95 HI: 154 QRSD: 76 QT: 350 QTc: 439 [place]: P: 78 HI: 154 QRS: 65 T: 69 INTERPRETIVE STATEMENTS: Normal sinus rhythm Nonspecific ST abnormality Abnormal ECG Compared to ECG 08/15/2018 21:22:35 ST (T wave) deviation now present Electronically Signed On 02-07-21 11:56:51 CDT by Yosvany Vizcarra
[2021-02-07 12:19] VITALS: BP 152/67; TEMP 98.8
== END 2021-02-07 13:55 | disposition home or self-care (01) ==
LOC: ER 22:47 → ERHOLD 02-07 02:05 → 2ND 02-07 07:30
PROVIDERS: ADMIT Family Medicine; ATTEND Family Medicine
DX: K52.9 Noninfective gastroenteritis and colitis, unspecified (principal); F10.10 Alcohol abuse, uncomplicated; J44.9 Chronic obstructive pulmonary disease, unspecified; Z99.81 Dependence on supplemental oxygen; Z79.52 Long term (current) use of systemic steroids; Z20.822 Contact with and (suspected) exposure to COVID-19; I25.10 Atherosclerotic heart disease of native coronary artery without angina pectoris; Z95.5 Presence of coronary angioplasty implant and graft; K21.9 Gastro-esophageal reflux disease without esophagitis; I10 Essential (primary) hypertension; I73.9 Peripheral vascular disease, unspecified; Z86.73 Personal history of transient ischemic attack (TIA), and cerebral infarction without residual deficits; G89.29 Other chronic pain; Z87.891 Personal history of nicotine dependence; R94.31 Abnormal electrocardiogram [ECG] [EKG]
CPT/HCPCS: 93005; 85025 ×2; 80048; 36415 ×2; 83735 ×2; 85610; 80076; 84443; 84484; 84439; 83690; 80053; 84145; 83880; 71275; 74175; 71045; 99285; U0003; Q9967; J7512; J1650; J3475; J7606; J7040; J7030; J2405 ×3; J0744 ×2

== ENCOUNTER 2022-03-09 04:49 | Inpatient (IN) | payer OTHER ==
--- OUTSIDE RECORDS SUMMARY | 2022-03-09 04:54 | XMS REPORT | Continuity of Care Document ---
:1960 Author Organization [facility] t Address [address] [place] [address] Care Team Providers Name Role Phone PCP, PATIENT DOES NOT HAVE A Primary Care Physician Unavailvictorino ALANIS Attending Clinician Unavailable Heidi Reaves MD Attending Clinician Art GONZALEZ MD Attending Clinician Maulik Baker MD Attending Clinician Khris MURDOCK, F Attending Clinician Vincent MIRANDA Attending Clinician Unavailable Ruben SHEFFIELD, S Attending Clinician Rolly Cameron Attending Clinician ROLLY CARRASCO Attending Clinician Unavailable Liz MABRY Attending Clinician Unavailable Liz MABRY Admitting Clinician Unavailable Payers Payer Name Policy Type Policy Number Effective Date Expiration Date [facility] [id number] 2017 00:00:00 Problems Condition Condition Condition Status Onset Resolution Last Treating Co mments Source Name Details Category Date Date Treatment Clinician Date No known No known Disease Unive rs active active ity of problems problems [facility] Allergies, Adverse Reactions, Alerts Allergy Allergy Status Severity Reaction(s) Onset Inactive Treating Comm ents Source Name Type Date Date Clinician NO KNOWN Drug Active Univers ALLERGIE Class ity of S [facility] Social History Social Habit Start Date Stop Date Quantity Comments Source Exposure to Not sure University SARS-CoV-2 (event) [facility] Cigarettes smoked 2020-12-14 2020-12-14 Univers ity of current (pack per 00:00:00 00:00:00 ) - Reported Branch Cigarette 2020-12-14 2020-12-14 University of pack-years 00:00:00 00:00:00 [facility] Alcohol intake 2020-12-14 2020-12-14 Current drinker Unive rsity of 00:00:00 00:00:00 of alcohol [facility] (finding) Branch History of tobacco 2015-12-15 Cigarette Smoker University of use 00:00:00 [facility] Sex [birth year] Universit y of 00:00:00 00:00:00 [facility] Smoking Status Start Date Stop Date Source Former smoker 2020-12-14 00:00:00 2020-12-14 00:00:00 Universi ty [facility] Unknown if ever smoked [facility] Medications Ordered Filled Start Stop Current Ordering Indication Dosage Frequency Signature Comments Components Source Medication Medication Date Date Medication? Clinician (SIG) Name Name theophyllin Yes 200mg Take 200 U nivers e (FÉLIX-24) 4-01 mg by ity of 200 mg 24 16:44: mouth [place] hr capsule 06 daily. Medical Branch tiotropium- Yes 1{puff} Inhale 1 Univers olodaterol 4-01 Puff. ity of (STIOLTO 16:44: [place] RESPIMAT) 06 Medical 2.5-2.5 Branch mcg/actuati on Mist thiamine Yes 100mg Take 100 Univ ers (VITAMIN 4-01 mg by ity of B-1) 100 mg 16:44: mouth [place] tablet 06 daily. Medical Branch predniSONE Yes 10mg Take 10 mg U nivers 10 mg 4-01 by mouth ity of tablet 16:44: daily. [place] [address] Medical Branch theophyllin Yes 200mg Take 200 U nivers e (FÉLIX-24) 4-01 mg by ity of 200 mg 24 16:44: mouth [place] hr capsule 06 daily. Medical Branch tiotropium- Yes 1{puff} Inhale 1 Univers olodaterol 4-01 Puff. ity of (STIOLTO 16:44: [place] RESPIMAT) 06 Medical 2.5-2.5 Branch mcg/actuati on Mist thiamine 2021-0 Yes 100mg Take 100 Univ ers (VITAMIN 4-01 mg by ity of B-1) 100 mg 16:44: mouth [place] tablet 06 daily. Medical Branch predniSONE Yes 10mg Take 10 mg U nivers 10 mg 4-01 by mouth ity of tablet 16:44: daily. Medical Branch theophyllin Yes 200mg Take 200 U nivers e (FÉLIX-24) 4-01 mg by ity of 200 mg 24 16:44: mouth [place] hr capsule 06 daily. Medical Branch tiotropium- Yes 1{puff} Inhale 1 Univers olodaterol 4-01 Puff. ity of (STIOLTO 16:44: [place] RESPIMAT) 06 Medical 2.5-2.5 Branch mcg/actuati on Mist thiamine Yes 100mg Take 100 Univ ers (VITAMIN 4-01 mg by ity of B-1) 100 mg 16:44: mouth [place] tablet 06 daily. Medical Branch predniSONE Yes 10mg Take 10 mg U nivers 10 mg 4-01 by mouth ity of tablet 16:44: daily. Medical Branch theophyllin Yes 200mg Take 200 U nivers e (FÉLIX-24) 4-01 mg by ity of 200 mg 24 16:44: mouth [place] hr capsule 06 daily. Medical Branch tiotropium- Yes 1{puff} Inhale 1 Univers olodaterol 4-01 Puff. ity of (STIOLTO 16:44: [place] RESPIMAT) 06 Medical 2.5-2.5 Branch mcg/actuati on Mist thiamine Yes 100mg Take 100 Univ ers (VITAMIN 4-01 mg by ity of B-1) 100 mg 16:44: mouth [place] tablet 06 daily. Medical Branch predniSONE Yes 10mg Take 10 mg U nivers 10 mg 4-01 by mouth ity of tablet 16:44: daily. Medical Branch theophyllin Yes 200mg Take 200 U nivers e (FÉLIX-24) 4-01 mg by ity of 200 mg 24 16:44: mouth [place] hr capsule 06 daily. Medical Branch tiotropium- Yes 1{puff} Inhale 1 Univers olodaterol 4-01 Puff. ity of (STIOLTO 16:44: [place] RESPIMAT) 06 Medical 2.5-2.5 Branch mcg/actuati on Mist thiamine Yes 100mg Take 100 Univ ers (VITAMIN 4-01 mg by ity of B-1) 100 mg 16:44: mouth [place] tablet 06 daily. Medical Branch predniSONE Yes 10mg Take 10 mg U nivers 10 mg 4-01 by mouth ity of tablet 16:44: daily. 06 Medical Branch ketorolac 2020- No 30mg 30 mg, Unive rs (TORADOL) 12-09 Intramuscu ity of injection 18:00: 17:09 [place], ONCE, [place] 30 mg 00 :00 1 dose, Medical Sat Branch 12/09/20 at 1300, SYMONE
[facility] Rest[facility] medication : SUNNY GARDNER FENTanyl PF 2020- No 50ug 50 mcg, Un hallie (SUBLIMAZE 12-09 Intramuscu it y of (PF)) 16:45: 16:45 lar, ONCE, [place] injection 00 :00 1 dose, Medical 50 mcg Sat Branch 12/09/20 at 1145, Routine traMADoL 50 Yes 2745 50mg Take 1 Univ ers mg tablet 3-27 tablet by ity o f 00:00: mouth [place] 00 every 6 Medical (six) Branch hours as needed for Pain (scale 7-10). Indication s: chronic pain traMADoL 50 Yes 2745 50mg Take 1 Univ ers mg tablet 3-27 tablet by ity o f 00:00: mouth [place] 00 every 6 Medical (six) Branch hours as needed for Pain (scale 7-10). Indication s: chronic pain traMADoL 50 Yes 2745 50mg Take 1 Univ ers mg tablet 3-27 tablet by ity o f 00:00: mouth [place] 00 every 6 Medical (six) Branch hours as needed for Pain (scale 7-10). Indication s: chronic pain traMADoL 50 Yes 2745 50mg Take 1 Univ ers mg tablet 3-27 tablet by ity o f 00:00: mouth [place] 00 every 6 Medical (six) Branch hours as needed for Pain (scale 7-10). Indication s: chronic pain traMADoL 50 2020-0 Yes 2745 50mg Take 1 Univ ers mg tablet 3-27 tablet by ity o f 00:00: mouth [place] 00 every 6 Medical (six) Branch hours as needed for Pain (scale 7-10). Indication s: chronic pain traMADoL 50 2020-0 Yes 2745 50mg Take 1 Univ ers mg tablet 3-27 tablet by ity o f 00:00: mouth [place] 00 every 6 Medical (six) Branch hours as needed for Pain (scale 7-10). Indication s: chronic pain traMADoL 50 2020-0 Yes 2745 50mg Take 1 Univ ers mg tablet 3-27 tablet by ity o f 00:00: mouth [place] 00 every 6 Medical (six) Branch hours as needed for Pain (scale 7-10). Indication s: chronic pain HYDROcodone 2019-0 2020- No 1{tbl} 1 tablet, Univers -acetaminop 5-04 05-04 Oral, ity of hen (NORCO) 04:30: 03:35 [place]CE[place] 1 [place] 10-325 mg 00 :00 dose, Sun Medic al tablet 1 01/16/20 at Branch tablet 2330, Routine albuterol 2019-0 Yes Inhale. Unive rs sulfate 5-04 ity of (PROAIR 02:39: [place] DIGIHALER) 45 Medical 90 Branch mcg/actuati on aebs theophyllin 2019-0 Yes 200mg Take 200 U nivers e (FÉLIX-24) 5-04 mg by ity of 200 mg 24 02:39: mouth [place] hr capsule 45 daily. Medical Branch tiotropium- 2020-0 Yes 1{puff} Inhale 1 Univers olodaterol 5-04 Puff. ity of (STIOLTO 02:39: [place] RESPIMAT) 45 Medical 2.5-2.5 Branch mcg/actuati on Mist thiamine 2020-0 Yes 100mg Take 100 Univ ers (VITAMIN 5-04 mg by ity of B-1) 100 mg 02:39: mouth [place] tablet 45 daily. Medical Branch predniSONE 2020-0 Yes 10mg Take 10 mg U nivers 10 mg 5-04 by mouth ity of tablet 02:39: daily. [place] 45 Medical Branch albuterol 2020-0 Yes Inhale. Unive rs sulfate 5-04 ity of (PROAIR 02:39: [place] DIGIHALER) 45 Medical 90 Branch mcg/actuati on aebs theophyllin 2020-0 Yes 200mg Take 200 U nivers e (FÉLIX-24) 5-04 mg by ity of 200 mg 24 02:39: mouth [place] hr capsule 45 daily. Medical Branch tiotropium- 2020-0 Yes 1{puff} Inhale 1 Univers olodaterol 5-04 Puff. ity of (STIOLTO 02:39: [place] RESPIMAT) 45 Medical 2.5-2.5 Branch mcg/actuati on Mist thiamine 2020-0 Yes 100mg Take 100 Univ ers (VITAMIN 5-04 mg by ity of B-1) 100 mg 02:39: mouth [place] tablet 45 daily. Medical Branch predniSONE 2020-0 Yes 10mg Take 10 mg U nivers 10 mg 5-04 by mouth ity of tablet 02:39: daily. [place] 45 Medical Branch albuterol 2020-0 Yes Inhale. Unive rs sulfate 5-04 ity of (PROAIR 02:39: [place] DIGIHALER) 45 Medical 90 Branch mcg/actuati on aebs albuterol 2020-0 Yes Inhale. Unive rs sulfate 5-04 ity of (PROAIR 02:39: [place] DIGIHALER) 45 Medical 90 Branch mcg/actuati on aebs albuterol 2020-0 Yes Inhale. Unive rs sulfate 5-04 ity of (PROAIR 02:39: [place] DIGIHALER) 45 Medical 90 Branch mcg/actuati on aebs albuterol 2020-0 Yes Inhale. Unive rs sulfate 5-04 ity of (PROAIR 02:39: [place] DIGIHALER) 45 Medical 90 Branch mcg/actuati on aebs albuterol 2020-0 Yes Inhale. Unive rs sulfate 5-04 ity of (PROAIR 02:39: [place] DIGIHALER) 45 Medical 90 Branch mcg/actuati on aebs albuterol 2020-0 Yes Inhale. Unive rs sulfate 5-04 ity of (PROAIR 02:39: [place] DIGIHALER) 45 Medical 90 Branch mcg/actuati on aebs theophyllin 2020-0 Yes 200mg Take 200 U nivers e (FÉLIX-24) 5-04 mg by ity of 200 mg 24 02:39: mouth [place] hr capsule 45 daily. Medical Branch tiotropium- 2020-0 Yes 1{puff} Inhale 1 Univers olodaterol 5-04 Puff. ity of (STIOLTO 02:39: [place] RESPIMAT) 45 Medical 2.5-2.5 Branch mcg/actuati on Mist thiamine 2020-0 Yes 100mg Take 100 Univ ers (VITAMIN 5-04 mg by ity of B-1) 100 mg 02:39: mouth [place] tablet 45 daily. Medical Branch predniSONE 2020-0 Yes 10mg Take 10 mg U nivers 10 mg 5-04 by mouth ity of tablet 02:39: daily. Medical Branch albuterol 2020-0 Yes Inhale. Unive rs sulfate 5-04 ity of (PROAIR 02:39: [place] DIGIHALER) 45 Medical 90 Branch mcg/actuati on aebs theophyllin 2020-0 Yes 200mg Take 200 U nivers e (FÉLIX-24) 5-04 mg by ity of 200 mg 24 02:39: mouth [place] hr capsule 45 daily. Medical Branch tiotropium- 2020-0 Yes 1{puff} Inhale 1 Univers olodaterol 5-04 Puff. ity of (STIOLTO 02:39: [place] RESPIMAT) 45 Medical 2.5-2.5 Branch mcg/actuati on Mist thiamine 2020-0 Yes 100mg Take 100 Univ ers (VITAMIN 5-04 mg by ity of B-1) 100 mg 02:39: mouth [place] tablet 45 daily. Medical Branch predniSONE 2020-0 Yes 10mg Take 10 mg U nivers 10 mg 5-04 by mouth ity of tablet 02:39: daily. Medical Branch albuterol 2020-0 Yes Inhale. Unive rs sulfate 5-04 ity of (PROAIR 02:39: [place] DIGIHALER) 45 Medical 90 Branch mcg/actuati on aebs theophyllin 2020-0 Yes 200mg Take 200 U nivers e (FÉLIX-24) 5-04 mg by ity of 200 mg 24 02:39: mouth [place] hr capsule 45 daily. Medical Branch tiotropium- 2020-0 Yes 1{puff} Inhale 1 Univers olodaterol 5-04 Puff. ity of (STIOLTO 02:39: [place] RESPIMAT) 45 Medical 2.5-2.5 Branch mcg/actuati on Mist thiamine 2020-0 Yes 100mg Take 100 Univ ers (VITAMIN 5-04 mg by ity of B-1) 100 mg 02:39: mouth [place] tablet 45 daily. Medical Branch predniSONE 2020-0 Yes 10mg Take 10 mg U nivers 10 mg 5-04 by mouth ity of tablet 02:39: daily. Medical Branch albuterol 2020-0 Yes Inhale. Unive rs sulfate 5-04 ity of (PROAIR 02:39: [place] DIGIHALER) 45 Medical 90 Branch mcg/actuati on aebs theophyllin 2020-0 Yes 200mg Take 200 U nivers e (FÉLIX-24) 5-04 mg by ity of 200 mg 24 02:39: mouth [place] hr capsule 45 daily. Medical Branch tiotropium- 2020-0 Yes 1{puff} Inhale 1 Univers olodaterol 5-04 Puff. ity of (STIOLTO 02:39: [place] RESPIMAT) 45 Medical 2.5-2.5 Branch mcg/actuati on Mist thiamine 2020-0 Yes 100mg Take 100 Univ ers (VITAMIN 5-04 mg by ity of B-1) 100 mg 02:39: mouth [place] tablet 45 daily. Medical Branch predniSONE 2020-0 Yes 10mg Take 10 mg U nivers 10 mg 5-04 by mouth ity of tablet 02:39: daily. Medical Branch albuterol 2020-0 Yes Inhale. Unive rs sulfate 5-04 ity of (PROAIR 02:39: [place] DIGIHALER) 45 Medical 90 Branch mcg/actuati on aebs theophyllin 2020-0 Yes 200mg Take 200 U nivers e (FÉLIX-24) 5-04 mg by ity of 200 mg 24 02:39: mouth [place] hr capsule 45 daily. Medical Branch tiotropium- 2020-0 Yes 1{puff} Inhale 1 Univers olodaterol 5-04 Puff. ity of (STIOLTO 02:39: [place] RESPIMAT) 45 Medical 2.5-2.5 Branch mcg/actuati on Mist thiamine 2020-0 Yes 100mg Take 100 Univ ers (VITAMIN 5-04 mg by ity of B-1) 100 mg 02:39: mouth [place] tablet 45 daily. Medical Branch predniSONE 2020-0 Yes 10mg Take 10 mg U nivers 10 mg 5-04 by mouth ity of tablet 02:39: daily. [place] 45 Medical Branch acetaminoph 2020-0 Yes [id number] 1{tbl} Take 1 Univers en-codeine 5-03 tablet by ity of 300-30 mg 00:00: mouth [place] tablet 00 every 4 Medical (four) Branch hours as needed for Pain (scale 4-6). acetaminoph 2020-0 Yes [id number] 1{tbl} Take 1 Univers en-codeine 5-03 tablet by ity of 300-30 mg 00:00: mouth [place] tablet 00 every 4 Medical (four) Branch hours as needed for Pain (scale 4-6). acetaminoph 2020-0 Yes [id number] 1{tbl} Take 1 Univers en-codeine 5-03 tablet by ity of 300-30 mg 00:00: mouth [place] tablet 00 every 4 Medical (four) Branch hours as needed for Pain (scale 4-6). acetaminoph 2020-0 Yes [id number] 1{tbl} Take 1 Univers en-codeine 5-03 tablet by ity of 300-30 mg 00:00: mouth [place] tablet 00 every 4 Medical (four) Branch hours as needed for Pain (scale 4-6). acetaminoph 2020-0 Yes [id number] 1{tbl} Take 1 Univers en-codeine 5-03 tablet by ity of 300-30 mg 00:00: mouth [place] tablet 00 every 4 Medical (four) Branch hours as needed for Pain (scale 4-6). acetaminoph 2020-0 Yes [id number] 1{tbl} Take 1 Univers en-codeine 5-03 tablet by ity of 300-30 mg 00:00: mouth [place] tablet 00 every 4 Medical (four) Branch hours as needed for Pain (scale 4-6). acetaminoph 2020-0 Yes [id number] 1{tbl} Take 1 Univers en-codeine 5-03 tablet by ity of 300-30 mg 00:00: mouth [place] tablet 00 every 4 Medical (four) Branch hours as needed for Pain (scale 4-6). acetaminoph 20200 2020- No [id number] 1{tbl} Take 1 Univers en-codeine 5-03 04-01 tablet by ity of 300-30 mg 00:00: 00:00 mouth [place] tablet 00 :00 every 4 Medical (four) Branch hours as needed for Pain (scale 4-6). acetaminoph 2020-0 2020- No [id number] 1{tbl} Take 1 Univers en-codeine 5-03 04-01 tablet by ity of 300-30 mg 00:00: 00:00 mouth [place] tablet 00 :00 every 4 Medical (four) Branch hours as needed for Pain (scale 4-6). acetaminoph 2020-0 2020- No [id number] 1{tbl} Take 1 Univers en-codeine 5-03 04-01 tablet by ity of 300-30 mg 00:00: 00:00 mouth [place] tablet 00 :00 every 4 Medical (four) Branch hours as needed for Pain (scale 4-6). omeprazole 2020-0 Yes Univers 40 mg 3-31 ity of capsule 00:00: 00 Medical Branch PROAIR HFA 2020-0 Yes Univers 90 3-31 ity of mcg/actuati 00:00: on inhaler 00 Medical Branch omeprazole 2020-0 Yes Univers 40 mg 3-31 ity of capsule 00:00: 00 Medical Branch PROAIR HFA 2020-0 Yes Univers 90 3-31 ity of mcg/actuati 00:00: [place] on inhaler 00 Medical Branch omeprazole 2020-0 Yes Univers 40 mg 3-31 ity of capsule 00:00: 00 Medical Branch PROAIR HFA 2020-0 Yes Univers 90 3-31 ity of mcg/actuati 00:00: [place] on inhaler 00 Medical Branch omeprazole 2020-0 Yes Univers 40 mg 3-31 ity of capsule 00:00: 00 Medical Branch PROAIR HFA 2020-0 Yes Univers 90 3-31 ity of mcg/actuati 00:00: [place] on inhaler 00 Medical Branch omeprazole 2020-0 Yes Univers 40 mg 3-31 ity of capsule 00:00: 00 Medical Branch PROAIR HFA 2020-0 Yes Univers 90 3-31 ity of mcg/actuati 00:00: [place] on inhaler 00 Medical Branch omeprazole 2020-0 Yes Univers 40 mg 3-31 ity of capsule 00:00: 00 Medical Branch PROAIR HFA 2020-0 Yes Univers 90 3-31 ity of mcg/actuati 00:00: [place] on inhaler 00 Medical Branch omeprazole 2020-0 Yes Univers 40 mg 3-31 ity of capsule 00:00: [place] 00 Medical Branch PROAIR HFA 2020-0 Yes Univers 90 3-31 ity of mcg/actuati 00:00: [place] on inhaler 00 Medical Branch omeprazole 2020-0 Yes Univers 40 mg 3-31 ity of capsule 00:00: [place] 00 Medical Branch PROAIR HFA 2020-0 Yes Univers 90 3-31 ity of mcg/actuati 00:00: [place] on inhaler 00 Medical Branch omeprazole 2020-0 Yes Univers 40 mg 3-31 ity of capsule 00:00: [place] 00 Medical Branch PROAIR HFA 2020-0 Yes Univers 90 3-31 ity of mcg/actuati 00:00: [place] on inhaler 00 Medical Branch omeprazole 2020-0 Yes Univers 40 mg 3-31 ity of capsule 00:00: [place] 00 Medical Branch PROAIR HFA 2020-0 Yes Univers 90 3-31 ity of mcg/actuati 00:00: [place] on inhaler 00 Medical Branch benzonatate 2020-0 Yes Univer s 100 mg 2-11 ity of capsule 00:00: [place] 00 Medical Branch levoFLOXaci 2020-0 Yes Univer s n 500 mg 2-11 ity of tablet 00:00: [place] 00 Medical Branch benzonatate 2020-0 Yes Univer s 100 mg 2-11 ity of capsule 00:00: [place] 00 Medical Branch levoFLOXaci 2020-0 Yes Univer s n 500 mg 2-11 ity of tablet 00:00: [place] 00 Medical Branch benzonatate 2020-0 Yes Univer s 100 mg 2-11 ity of capsule 00:00: [place] 00 Medical Branch levoFLOXaci 2020-0 Yes Univer s n 500 mg 2-11 ity of tablet 00:00: [place] 00 Medical Branch benzonatate 2020-0 Yes Univer s 100 mg 2-11 ity of capsule 00:00: [place] 00 Medical Branch benzonatate 2020-0 Yes Univer s 100 mg 2-11 ity of capsule 00:00: [place] 00 Medical Branch benzonatate 2020-0 Yes Univer s 100 mg 2-11 ity of capsule 00:00: [place] 00 Medical Branch benzonatate 2020-0 Yes Univer s 100 mg 2-11 ity of capsule 00:00: [place] 00 Medical Branch benzonatate 2020-0 Yes Univer s 100 mg 2-11 ity of capsule 00:00: [place] 00 Medical Branch benzonatate 2020-0 Yes Univer s 100 mg 2-11 ity of capsule 00:00: [place] 00 Medical Branch levoFLOXaci 2020-0 Yes Univer s n 500 mg 2-11 ity of tablet 00:00: [place] 00 Medical Branch benzonatate 2020-0 Yes Univer s 100 mg 2-11 ity of capsule 00:00: [place] 00 Medical Branch levoFLOXaci 2020-0 Yes Univer s n 500 mg 2-11 ity of tablet 00:00: [place] 00 Medical Branch levoFLOXaci 2020-0 2020- No Unive rs n 500 mg 2-11 - ity of tablet 00:00: 00:00 [place] 00 :00 Medical Branch levoFLOXaci 2020-0 2020- No Unive rs n 500 mg 2-07 19- ity of tablet 00:00: 00:00 [place] 00 :00 Medical Branch levoFLOXaci 2020-0 2020- No Unive rs n 500 mg 2-12-14 ity of tablet 00:00: 00:00 [place] 00 :00 Medical Branch Vital Signs Vital Name Observation Time Observation Value Comments Source Body temperature 2020-12-14 16:33:00 36.17 Nicky [facility] Body weight 2020-12-14 16:33:00 61.735 kg [facility] BMI 2020-12-14 16:33:00 25.72 kg/m2 [facility] Body temperature 2020-12-14 16:33:00 36.17 [facility] Body weight 2020-12-14 16:33:00 61.735 kg [facility] BMI 2020-12-14 16:33:00 25.72 kg/m2 [facility] Systolic blood 2020-12-09 18:39:00 139 mm[Hg] Univer sity of pressure [facility] Diastolic blood 2020-12-09 18:39:00 76 mm[Hg] Unive rsity of pressure [facility] Heart rate 2020-12-09 18:39:00 81 /min [facility] Body temperature 2020-12-09 18:39:00 36.67 [facility] [place] [facility] 2020-12-09 18:39:00 18 /min [facility] ersity of [facility] Oxygen saturation in 2020-12-09 18:39:00 93 /min University of Arterial blood by [facility] Pulse oximetry Branch Body weight 2020-12-09 15:32:00 68 kg Universi ty of [facility] BMI 2020-12-09 15:32:00 28.33 kg/m2 Universi ty of [facility] Body height 2020-01-18 14:28:00 154.9 cm Universi ty of [place] [facility] [place] Body weight 2020-01-18 14:28:00 68.04 kg Universi ty of [facility] BMI 2020-01-18 14:28:00 28.34 kg/m2 Universi ty of [facility] Systolic blood 2020-01-17 03:47:00 165 mm[Hg] Univer sity of [facility] Diastolic blood 2020-01-17 03:47:00 71 mm[Hg] [facility] Heart rate 2020-01-17 03:47:00 116 /min Universi ty of [facility] Respiratory rate 2020-01-17 03:47:00 22 /min [facility] [place] [facility] Oxygen saturation in 2020-01-17 03:47:00 98 /min University of Arterial blood by [facility] Pulse oximetry Branch Body temperature 2020-01-17 02:34:00 37.33 Nicky [facility] ersity of [facility] Body height 2020-01-17 02:34:00 154.9 cm Universi ty of [facility] Body weight 2020-01-17 02:34:00 68.04 kg Universi ty of [facility] BMI 2020-01-17 02:34:00 28.34 kg/m2 Universi ty of [facility] Procedures Procedure Date / Time Performed Performing Clinician Mounika newsome XR HUMERUS 2 VW RIGHT 2020-12-14 15:54:43 [facility]UM[facility] 2 VW RIGHT 2020-12-09 16:05:13 [facility]R HUMERUS 2 VW RIGHT 2020-01-18 14:46:40 Miquel Miranda [facility] Encounters Start End Encounter Admission Attending Care Care Encounter Source Date/Time Date/Time Type Type Clinicians Facility Department ID 2021-07-15 Emergency [facility] [id number] Univers 08:56:48 ity [facility] 2021-01-04 2021-01-04 Outpatient Oanh ART [facility] [id number] Univers 11:10:00 11:10:00 JAGDISH [id number] ity [facility] 2021-01-04 2021-01-04 [facility] [id number] Univers 11:10:00 11:10:00 JAGDISH ity [facility] 2021-01-01 2021-01-01 [facility] [id number] 00:00:00 00:00:00 Su PRIMARY [id number] Heidi CARE [id number] PAVILLION [id number] 2021-01-01 2021-01-01 [facility] [id number] Univers 00:00:00 00:00:00 Su PRIMARY [id number] it y of [id number] [id number] Dc dical [address] [place] 2020-12-14 2020-12-14 [facility] [id number] [facility] 10:45:35 23:59:00 Encounter Jagdish PRIMARY [id number] [id number] [id number] Dc dical [address] [place] 2020-12-14 2020-12-14 [facility] [id number] 10:39:46 12:35:18 Visit Jagdish PRIMARY [id number] CARE [id number] PAVILLION [id number] [facility] 2020-12-14 2020-12-14 [facility] [id number] Univers 10:39:46 12:35:18 Visit Jagdish PRIMARY [id number] it [id number] [id number] Me dical [address] [place] 2020-12-14 2020-12-14 Outpatient Oanh ALANIS [facility] [id number] Univers 10:30:00 10:30:00 JAGDISH [id number] ity of [facility] 2020-12-14 2020-12-14 Outpatient Oanh ALANIS [facility] [id number] Univers 10:30:00 10:30:00 JAGDISH ity [facility] 2020-12-13 2020-12-13 [facility] [id number] Univers 00:00:00 00:00:00 Ginette Fluke PRIMARY [id number] it[id number] [id number] Dc dical [address] [place] 2020-12-09 2020-12-09 Emergency Ibikunle, TRAUMA 1.2.840.114 [id number] Univers 09:47:00 14:21:00 [facility] [id number] [id number] [id number] [address] 2020-03-14 2020-03-14 [facility] [id number] Univers 13:00:00 13:00:00 MIQUEL [id number] ity [facility] 2020-03-14 2020-03-14 [facility] [id number] Univers 13:00:00 13:00:00 MIQUEL ity [facility] 2020-01-18 2020-01-18 Outpatient R RUBEN [facility] [id number] Univers 09:46:40 23:59:00 MIQUEL ity [facility] 2020-01-18 2020-01-18 [facility] [id number] Univers 09:46:00 23:59:00 Encounter Miquel [facility] [id number] ity of Surgical [id number] [place] [facility] [id number] Dc dical es [address] [facility] 2020-01-18 2020-01-18 Office [facility] [id number] Univers 09:27:00 09:42:00 Visit [facility] [id number] it y of Surgical 4.2.7.2.686 [place] [id number] Dc dical es 198 [facility] 2020-01-17 2020-01-17 Telephone Ruben [facility] [id number] Univers 00:00:00 00:00:00 Miquel [facility] [id number] it y of Surgical 4.2.7.2.686 [place] [id number] Dc dical es 198 [facility] 2020-01-16 2020-01-16 Emergency Nilam Carrasco [facility] [id number] Univers 21:39:45 22:49:00 [facility] [id number] i [place].2.686 [place] [id number] [facility] 0[address] [place] 2020-01-16 2020-01-16 Emergency X Nilam CARRASCO [facility] ERT [id number] Univers 21:39:45 21:39:45 ity of [facility] Results Test Test Test Results Result Source Description Time Comments Comments XR HUMERUS 2 VW 2020-12- 1. Angulated right [facility] RIGHT 01 humeral shaft fracture [facility] 20:06:57 shows slightly increased Branch callusformation but shows no significant healing.2. There is no new fracture.3. Bones are demineralized. [id number] End of report STUDY:XR HUMERUS 2 VW RIGHT ORDERING PHYSICIAN: JAGDISH ALANIS II CLINICAL HISTORY: fx fu ; COMPARISON:12/09/2020 TECHNIQUE:2 radiographs of the right humerus. ? FINDINGS/[facility], Radiant Results Inft User - 12/14/2020 3:08 PM CDTSTUDY:XR HUMERUS 2 VW RIGHTORDERING PHYSICIAN: JAGDISH ALANIS IICLINICAL HISTORY: fx fu ;COMPARISON:12/09/2020TEC HNIQUE:2 radiographs of the right humerus. FINDINGS/IMPRESSION1. Angulated right humeral shaft fracture shows slightly increased callusformation but shows no significant healing.2. There is no new fracture.3. Bones are demineralized.[id number] of report HUMERUS 2 VW 2020-11- Remote right humerus [facility] 27 fracture with [place] [facility] 16:39:04 posttraumatic remodeling Branch and soft tissuedeformity. Preliminary Report Dictated by Resident: Abdirizak Good MD., have reviewed this study and agree with the abovereport.EXAM: XR HUMERUS 2 VW RIGHT HISTORY: right arm pain COMPARISON: 01/18/2020. FINDINGS: Radiographs of the right humerus demonstrate a remote, comminuted fractureof the proximal tibial diaphysis with heterotopic ossification andposttraumatic remodeling with minimal bridging callus. Alignment appearsworsened with increased lateral apex angulation. Soft tissue deformity isnoted at the right humeral mid-diaphysis. Marked osteopenia is present. [facility], Radiant Results Inft User - 12/09/2020 11:40 AM CDTEXAM: XR HUMERUS 2 VW RIGHTHISTORY: right arm pain COMPARISON: 01/18/2020.FINDINGS: Radiographs of the right humerus demonstrate a remote, comminuted fractureof the proximal tibial diaphysis with heterotopic ossification andposttraumatic remodeling with minimal bridging callus. Alignment appearsworsened with increased lateral apex angulation. Soft tissue deformity isnoted at the right humeral mid-diaphysis. Marked osteopenia is present.IMPRESSIONRemote right humerus fracture with posttraumatic remodeling and soft tissuedeformity.Prelimin whitney Report Dictated by Resident: Rashid Stevenson, Abdirizak Valentine MD., have reviewed this study and agree with the abovereport. XR HUMERUS 2 VW 2020-01- Her immobilization in [place] [address] the [facility] brace and [facility] 15:05:29 arm sling she came in [facility] with are much better than she initially had with a coaptation splint. ?She has a midshaft humerus fracture with a butterfly fragment. MYOCARD 2018-05- FINAL REPORT PATIENT ID: YANCY HINOJOSA, [id number] PROCEDURE: PHARM, SPECT 16:02:00 Rest/Stress MYOCARDIAL PERFUSION SPECT with regadenoson\XA9\ CPT CODE: 05232 INDICATION: Chest pain HISTORY: Cardiac risk factors: [...] lung due to COPD. 6. No previous [facility] study for comparison. NONINVASIVE RISK STRATIFICATION: The above findings are considered low risk (<1% annual mortality rate) based on the following criterion:- Normal or small myocardial perfusion defect at rest or with stress(JACC. 2012;59(9):857-81.) Signed: Case Carpenter MDReport Verified Date/Time: 05/26/2018 16:02:19 Reading Location: [address] Reading Room C METABOLIC PANEL 2018-05-26 [...] NOT 1092) ACCURATE CRE ATININE CLEARANCE IN MD EDICTING GLOMERULAR FILT RATION RATE. ESTIMATED GFR [...] code = 413) MR, MRA, BRAIN, WITHOUT [id number] 22:00:00Reason for exam:->Ischemic Stroke EvaluationFINAL REPORT MR, [...] MDReport Verified Date/Time: 05/25/2018 22:00:39 Reading Location: [address] Body Reading Room MR, MRA, NECK, WITHOUT IV [id number] 22:00:00Reason for exam:->Ischemic Stroke EvaluationFINAL REPORT MR, [...] CT of the same date FINDINGS: MRI B RAIN: Cerebral parenchyma: Unremarkable.Midline structures: Normally positioned.Cerebellum and brainstem: Normal.Ventricles: Normal volume.Extra- axial spaces: Unremarkable. Calvarium and skull base: Normal signal.Paranasal sinuses and mastoid air cells: Visible chambers are clear.Orbital contents: No a cute abnormality. Additional findings: None. MRA BRAIN:Internal carotid [...] MDReport Verified Date/Time: 05/25/2018 22:00:39 Reading Location: [address] Body Reading Room MR, BRAIN, WITHOUT [id number] 22:00:00Reason for exam:- >Ischemic Stroke EvaluationFINAL REPORT [...] MDReport Verified Date/Time: 05/25/2018 22:00:39 Reading Location: [address] Body Reading Room HEMOGLOBIN [id number] 09:45:00 Test Item Value Reference Range Interpretation Comments HEMOGLOBIN A1C (BEAKER) (test code = 5.4 % 4.3-6.1 368) LIPID [id number] 07:58:00 Test Item Value Reference Range Interpretation [...] High 160-189 Very High >=190TSH/FREE T4 IF [id number] 06:27:00 Test Item Value Reference Range Interpretation Comments THYROID STIMULATING HORMONE 4.27 uIU/mL 0.35-4.94 (BEAKER) (test code = 772) CREATINE KINASE (CK), TOTAL AND [id number] 06:13:00 Test Item Value Reference Range Interpretation Comments CREATINE KINASE TOTAL (BEAKER) 53 U/L 29-200 (test code = 380) CREATINE KINASE-MB (BEAKER) (test 3.9 ng/mL 0.0-6.6 code = 750) CREATINE KINASE-MB INDEX (BEAKER) 7.4 % (test code = 395) CK-MB Reference Range:<6.7 Normal6.7-10.0 Borderline>10.0 AbnormalTROPONIN [id number] 06:13:00 Test Item Value Reference Range Interpretation [...] acidosis, acute neurological disease, and persistent tachyarrhythmia.CALCIUM, [id number] 06:13:00 Test Item Value Reference Range Interpretation Comments CALCIUM IONIZED (BEAKER) (test 1.17 mmol/L 1.12-1.27 code = 698) PH, BLOOD (BEAKER) (test code = 7.33 1810) [id number] 06:05:00 Test Item Value Reference Range Interpretation Comments PHOSPHORUS (BEAKER) (test code = 4.1 mg/dL 2.3-4.7 604) [id number] 06:05:00 Test Item Value Reference Range Interpretation Comments MAGNESIUM (BEAKER) (test code = 2.0 mg/dL 1.6-2.6 627) CBC W/PLT COUNT & AUTO [id number] 05:44:00 Test Item Value Reference Range Interpretation [...] PERCENT (BEAKER) (test code = 2801) TROPONIN [id number] 01:50:00 Test Item Value Reference Range Interpretation [...] acute neurological disease, and persistent tachyarrhythmia.BASIC METABOLIC [id number] 22:36:00 Test Item Value Reference Range Interpretation [...] PATIEN TS. CREATINE KINASE (CK), TOTAL AND [id number] 21:46:00 Test Item Value Reference Range Interpretation Comments CREATINE KINASE TOTAL (BEAKER) 82 U/L 29-200 (test code = 380) CREATINE KINASE-MB (BEAKER) (test 6.0 ng/mL 0.0-6.6 code = 750) CREATINE KINASE-MB INDEX (BEAKER) 7.3 % (test code = 395) CK-MB Reference Range:<6.7 Normal6.7-10.0 Borderline>10.0 AbnormalPT/[id number] 21:28:00 Test Item Value Reference Range Interpretation Comments PROTIME (BEAKER) (test code = 14.5 seconds 11.7-14.7 759) INR (BEAKER) (test code = 370) 1.1 <=5.9 PARTIAL THROMBOPLASTIN TIME 29.0 seconds 22.5-36.0 (CHAPITO) (test code = 760) RECOMMENDED COUMADIN/WARFARIN INR THERAPY RANGESSTANDARD DOSE: 2.0 - 3.0 Includes: PROPHYLAXIS forvenous thrombosis, systemic embolization; TREATMENT for venous thrombosis and/or pulmonary embolus.HIGH RISK: Target INR is 2.5-3.5 for patients with mechanical heart valves.RAD, CHEST, 1 VIEW, NON [id number] 20:22:00Reason for exam:->SOBShould this be performed at [...] no acute bony abnormality. Signed: Jose Decker MDReport Verified Date/Time: 05/24/2018 20:22:32 Reading Location: [address] Reading Room
[2022-03-09] MEDS ORDERED: METHYLPREDNISOLONE 125 MG INJ ONE (05:28)
[2022-03-09] MEDS ORDERED: IPRATROPIUM BROM 0.5MG/2.5ML ONE ×2 (05:29→09:24)
[2022-03-09] MEDS ORDERED: ALBUTEROL 2.5 MG/3 ML NEB SOL ONE ×2 (05:29→09:24)
[2022-03-09 05:42] LABS: Absolute Lymphocytes (CBC) 2.1 K/uL (0.7-4.9); Hematocrit 42.1 % (36.0-45.0); Lymphocytes % 21.6 % (15.3-44.8); MCV 90.5 fL (80-100); MPV 6.9 fL (7.6-11.3); RBC Red Blood Cell Count 4.65 M/uL (3.86-4.86)
[2022-03-09 05:43] LABS: Protime INR 0.9
[2022-03-09 05:59] LABS: ALT/SGPT 33 U/L (12-78); AST/SGOT 21 U/L (15-37); Albumin 3.3 g/dL (3.4-5.0); Alkaline Phosphatase 110 U/L (45-117); BUN Blood Urea Nitrogen 5 mg/dL (7-18); Bicarbonate 26 mmol/L (21-32); Bilirubin Total 0.2 mg/dL (0.2-1.0); Glomerular Filtration Rate 107 ml/min (=/>90); Glucose Level 147 mg/dL (74-106); Magnesium 1.9 mg/dL (1.8-2.4); NT PRO-BNP 56 pg/mL (<125); Potassium 3.9 mmol/L (3.5-5.1); Protein, Total 7.1 g/dL (6.4-8.2); Sodium Level 131 mmol/L (136-145); Troponin High Sensitivity 8.3 pg/mL (<58.9)
[2022-03-09 06:02] LABS: Bilirubin Direct < 0.1 mg/dL (0-0.2)
--- NOTE | 2022-03-09 07:32 | ER ---
Nurse's Notes [facility] Name: Ansley Henderson Age: 61 yrs Sex: Female : 1960 Arrival Date: 03/09/2022 Time: 04:52 Bed 20 Private MD: Diagnosis: COPD/ Chronic obstructive pulmonary disease with (acute) exacerbation Presentation: 03/09 04:52 Chief complaint: EMS states: pt has had difficulty breathing for about 2 to 3 days and kd3 has had a cough. pt is audibly wheezing and says he back hurts from coughing so much. pt was given a breathing treatment en route. Coronavirus screen: Vaccine status: Patient reports being unvaccinated. Ebola Screen: No symptoms or risks identified at this time. Initial Sepsis Screen: Does the patient meet any 2 criteria? No. Patient's initial sepsis screen is negative. Does the patient have a suspected source of infection? No. Patient's initial sepsis screen is negative. Risk Assessment: Do you want to hurt yourself or someone else? Patient reports no desire to harm self or others. Onset of symptoms was March 09, 2022. 04:52 Method Of Arrival: EMS kd3 04:52 Acuity: ENMANUEL 3 kd3 Triage Assessment: 04:54 General: Appears uncomfortable, Behavior is calm, cooperative. Pain: Complains of pain kd3 in upper back aches from coughing. Historical: - Home Meds: 04:54 albuterol sulfate 90 mcg/actuation Inhl HFAA 1 puff every 4 hours [Active]; aspirin 81 kd3 mg Oral TbEC 1 tab once daily [Active]; lisinopril 20 mg Oral tab 1 tab once daily [Active]; prednisone 20 mg Oral tab 1 tab 2 times per day [Active]; ranitidine HCl 150 mg Oral tab 1 tab once daily [Active]; tiotropium bromide inhalation once daily [Active]; - PMHx: 04:54 CAD; COPD; CVA; GERD; HEART STENT; Hypertension; kd3 - Immunization history:: Adult Immunizations up to date. - Social history:: Smoking status: unknown. Screenin:55 Abuse screen: Denies threats or abuse. Denies injuries from another. Nutritional kd3 screening: No deficits noted. Tuberculosis screening: No symptoms or risk factors identified. Fall Risk None identified. Assessment: 05:14 General: Appears uncomfortable. Neuro: Level of Consciousness is awake, alert, obeys kd3 commands, Oriented to person, place, time, situation. Cardiovascular: Patient's skin is warm and dry. Respiratory: Airway is patent Trachea midline Respiratory effort is even, unlabored, Respiratory pattern is regular, symmetrical. 06:35 Reassessment: PT took two of her extra strength Tylenol for headache. kd3 07:35 General: Appears comfortable, Behavior is cooperative. Neuro: Level of Consciousness is ww awake, alert, obeys commands, Oriented to person, place, time, situation, Moves all extremities. Speech is normal. Cardiovascular: Patient's skin is warm and dry. Respiratory: Airway is patent Respiratory effort is unlabored, Respiratory pattern is regular, symmetrical, Sputum is green. GI: No signs and/or symptoms were reported involving the gastrointestinal system. : Urine is clear. Derm: No signs and/or symptoms reported regarding the dermatologic system. Musculoskeletal: No signs and/or symptoms reported regarding the musculoskeletal system. 08:30 Reassessment: Patient appears in no apparent distress at this time. No changes from previously documented assessment. Patient and/or family updated on plan of care and expected duration. Pain level reassessed. Patient is alert, oriented x 3, equal unlabored respirations, skin warm/dry/pink. 09:26 Reassessment: Attempted to call report to Leanna and she will call back. 09:33 Reassessment: Patient appears in no apparent distress at this time. No changes from previously documented assessment. Patient and/or family updated on plan of care and expected duration. Pain level reassessed. Patient is alert, oriented x 3, equal unlabored respirations, skin warm/dry/pink. Dr. Tsang at bedside. 10:11 Reassessment: report given to Amita. Patient informed. Vital Signs: 04:58 BP 149 / 70; Pulse 98; Resp 19; Temp 98.3; Pulse Ox 96% ; Weight 65.77 kg; Height 5 ft. kd3 1 in. (154.94 cm); Pain 8/10; 05:14 BP 149 / 70; Pulse 91; Resp 24; Temp 98.3; Pulse Ox 95% on R/A; kd3 06:39 BP 132 / 74; Pulse 102; Resp 23; Pulse Ox 94% on 1 lpm NC; kd3 06:52 BP 145 / 66; Pulse 96; Resp 21; Pulse Ox 97% on 1 lpm NC; kd3 07:50 BP 134 / 54; Pulse 94; Resp 19; Pulse Ox 96% on 1 lpm NC; ww 04:58 Body Mass Index 27.40 (65.77 kg, 154.94 cm) kd3 ED Course: 04:52 Patient arrived in ED. kd3 04:54 Triage completed. kd3 04:54 Arm band placed on right wrist. kd3 04:55 Patient has correct armband on for positive identification. kd3 05:14 Heather Davidson, RN is Primary Nurse. kd3 05:15 Inserted saline lock: 20 gauge in left antecubital area, using aseptic technique. Blood kd3 collected. 05:16 No provider procedures requiring assistance completed. kd3 05:19 Ronaldo Barrios MD is Attending Physician. mh7 05:56 XRAY Chest (1 view) In Process Unspecified. EDMS 07:31 Mitch Tsang MD is Hospitalizing Provider. [facility] 10:11 Patient admitted, IV remains in place. ww Administered Medications: 05:48 Drug: SOLU-Medrol (methylPrednisoLONE) 125 mg Route: IVP; Site: left antecubital; kd3 05:48 Drug: Albuterol - atroVENT (ipratropium) (3:1) (2.5 mg - 0.5 mg) 3 ml Route: Nebulizer; kd3 Medication: 04:59 VIS not applicable for this client. kd3 Outcome: 07:32 Decision to Hospitalize by Provider. 7 10:11 Admitted to Med/surg room 212, with oxygen, Report called to Amita abdi 10:11 Condition: stable 10:11 Instructed on the need for admit. 10:56 Patient left the ED. ww Signatures: Dispatcher [employer] EDMS Ronaldo Barrios MD MD [facility] Heather Davidson, MESHA ZIMMER 3 Melisa Min RN RN ww
--- NOTE | 2022-03-09 07:32 | EDPHYS ---
Physician Documentation [facility] Name: Ansley Henderson Age: 61 yrs Sex: Female : 1960 Arrival Date: 03/09/2022 Time: 04:52 Bed 20 Private MD: ED Physician Ronaldo Barrios HPI: 03/09 05:20 This 61 yrs old Female presents to ER via EMS with complaints of Shortness Of Breath. mh7 05:20 The patient has shortness of breath at rest. Onset: The symptoms/episode began/occurred mh7 3 day(s) ago. Duration: The symptoms are continuous, and are steadily getting worse. The patient's shortness of breath is aggravated by coughing, is alleviated by nothing. Associated signs and symptoms: Pertinent positives: productive cough, Pertinent negatives: chest pain, non-productive cough, diaphoresis, dizziness, fever, hemoptysis, loss of consciousness, nausea, numbness in extremities, visual changes, vomiting. Severity of symptoms: At their worst the symptoms were moderate last night, in the emergency department the symptoms have improved moderately. Historical: - Home Meds: 04:54 albuterol sulfate 90 mcg/actuation Inhl HFAA 1 puff every 4 hours [Active]; aspirin 81 kd3 mg Oral TbEC 1 tab once daily [Active]; lisinopril 20 mg Oral tab 1 tab once daily [Active]; prednisone 20 mg Oral tab 1 tab 2 times per day [Active]; ranitidine HCl 150 mg Oral tab 1 tab once daily [Active]; tiotropium bromide inhalation once daily [Active]; - PMHx: 04:54 CAD; COPD; CVA; GERD; HEART STENT; Hypertension; kd3 - Immunization history:: Adult Immunizations up to date. - Social history:: Smoking status: unknown. ROS: 05:20 Constitutional: Negative for fever, chills, and weight loss, Eyes: Negative for injury, mh7 pain, redness, and discharge, ENT: Negative for injury, pain, and discharge, Neck: Negative for injury, pain, and swelling, Cardiovascular: Negative for chest pain, palpitations, and edema, Abdomen/GI: Negative for abdominal pain, nausea, vomiting, diarrhea, and constipation, Back: Negative for injury and pain, : Negative for injury, bleeding, discharge, and swelling, MS/Extremity: Negative for injury and deformity, Skin: Negative for injury, rash, and discoloration, Neuro: Negative for headache, weakness, numbness, tingling, and seizure, Psych: Negative for depression, anxiety, suicide ideation, homicidal ideation, and hallucinations, Allergy/Immunology: Negative for hives, rash, and allergies. 05:20 Endocrine: Negative for neck swelling, polydipsia, polyuria, polyphagia, and marked mh7 weight changes, Hematologic/Lymphatic: Negative for swollen nodes, abnormal bleeding, and unusual bruising. Exam: 05:20 Head/Face: Normocephalic, atraumatic. Eyes: Pupils equal round and reactive to light, 7 extra-ocular motions intact. Lids and lashes normal. Conjunctiva and sclera are non-icteric and not injected. Cornea within normal limits. Periorbital areas with no swelling, redness, or edema. Neck: Trachea midline, no thyromegaly or masses palpated, and no cervical lymphadenopathy. Supple, full range of motion without nuchal rigidity, or vertebral point tenderness. No Meningismus. Chest/axilla: Normal chest wall appearance and motion. Nontender with no deformity. No lesions are appreciated. Cardiovascular: Regular rate and rhythm with a normal S1 and S2. No gallops, murmurs, or rubs. Normal PMI, no JVD. No pulse deficits. 05:20 Abdomen/GI: Soft, non-tender, with normal bowel sounds. No distension or tympany. No guarding or rebound. No evidence of tenderness throughout. Back: No spinal tenderness. No costovertebral tenderness. Full range of motion. Skin: Warm, dry with normal turgor. Normal color with no rashes, no lesions, and no evidence of cellulitis. MS/ Extremity: Pulses equal, no cyanosis. Neurovascular intact. Full, normal range of motion. Neuro: Awake and alert, GCS 15, oriented to person, place, time, and situation. Cranial nerves II-XII grossly intact. Motor strength 5/5 in all extremities. Sensory grossly intact. Cerebellar exam normal. Normal gait. Psych: Awake, alert, with orientation to person, place and time. Behavior, mood, and affect are within normal limits. 05:20 Constitutional: The patient appears in obvious distress, mildly distressed. 05:20 Respiratory: mild respiratory distress is noted, Respirations: prolonged exhalation, that is moderate, tachypnea, that is mild, Breath sounds: rhonchi, that are moderate, are scattered, wheezing: expiratory that is moderate, is heard diffusely, Respiratory rate: 26 Vital Signs: 04:58 BP 149 / 70; Pulse 98; Resp 19; Temp 98.3; Pulse Ox 96% ; Weight 65.77 kg; Height 5 ft. kd3 1 in. (154.94 cm); Pain 8/10; 05:14 BP 149 / 70; Pulse 91; Resp 24; Temp 98.3; Pulse Ox 95% on R/A; kd3 06:39 BP 132 / 74; Pulse 102; Resp 23; Pulse Ox 94% on 1 lpm NC; kd3 06:52 BP 145 / 66; Pulse 96; Resp 21; Pulse Ox 97% on 1 lpm NC; kd3 07:50 BP 134 / 54; Pulse 94; Resp 19; Pulse Ox 96% on 1 lpm NC; ww 04:58 Body Mass Index 27.40 (65.77 kg, 154.94 cm) kd3 MDM: 07:30 Differential diagnosis: Anemia Anxiety Reaction asthma, Bronchitis CHF exacerbation, mh7 Chronic Obstructive Pulmonary Disease Myocardial Infarction pneumonia, Pneumothorax Psychogenic pulmonary edema, reactive airway disease, Sepsis. Data reviewed: vital signs, nurses notes, lab test result(s), cardiac enzymes, CBC, electrolytes, EKG, radiologic studies, plain films. Data interpreted: Pulse oximetry: on 2L(s) per nasal canula, is 94 %. Interpretation: acceptable. Counseling: I had a detailed discussion with the patient and/or guardian regarding: the historical points, exam findings, and any diagnostic results supporting the discharge/admit diagnosis, the presence of at least one elevated blood pressure reading (>120/80) during this emergency department visit, lab results, radiology results, the need for further work-up and treatment in the hospital. Response to treatment: the patient's symptoms have mildly improved after treatment. 07:[address] [facility] 03/09 05:19 Order name: Basic Metabolic Panel; Complete Time: 06:21 [facility] 03/09 05:19 Order name: CBC with Diff; Complete Time: 06:21 [facility] 03/09 05:19 Order name: LFT's; Complete Time: 06:21 [facility] 03/09 05:19 Order name: Magnesium; Complete Time: 06:21 [facility] 03/09 05:19 Order name: NT PRO-BNP; Complete Time: 06:21 [facility] 03/09 05:19 Order name: PT-INR; Complete Time: 06:21 [facility] 03/09 05:19 Order name: Troponin HS; Complete Time: 06:21 [facility] 03/09 05:19 Order name: XRAY Chest ([address]) [facility] 03/09 06:22 Order name: COVID-19 SARS RT PCR (Document "Date of Onset" if Symptomatic) [facility] 03/09 08:55 Order name: Basic Metabolic Panel [facility] 03/09 08:55 Order name: Basic Metabolic Panel [facility] 03/09 08:55 Order name: CBC with Automated Diff [facility] 03/09 08:55 Order name: CBC with Automated Diff [facility] 03/09 05:19 Order name: EKG; Complete Time: 05:20 [facility] 03/09 05:19 Order name: Cardiac monitoring; Complete Time: 05:20 [facility] 03/09 05:19 Order name: EKG - Nurse/Tech; Complete Time: 05:20 [facility] 03/09 05:19 Order name: IV Saline Lock; Complete Time: 05:20 [facility] 03/09 05:19 Order name: Labs collected and sent; Complete Time: 05:20 [facility] 03/09 05:19 Order name: O2 Per Protocol; Complete Time: 05:20 [facility] 03/09 05:19 Order name: O2 Sat Monitoring; Complete Time: 05:20 [facility] 03/09 08:55 Order name: Heart Healthy EDMS Administered Medications: 05:48 Drug: SOLU-Medrol (methylPrednisoLONE) 125 mg Route: IVP; Site: left antecubital; kd3 05:48 Drug: Albuterol - atroVENT (ipratropium) (3:1) (2.5 mg - 0.5 mg) 3 ml Route: Nebulizer; kd3 Disposition Summary: 03/09/22 07:32 Hospitalization Ordered Hospitalization Status: Inpatient Admission [facility] Provider: Mitch Tsang [facility] Location: Telemetry/MedSurg (Inpatient) [facility] Condition: Stable [facility] Problem: an acute exacerbation [facility] Symptoms: have improved [facility] Bed/Room Type: Standard [facility] Room Assignment: [facility](03/09/22 09:07) mio Diagnosis - COPD/ Chronic obstructive pulmonary disease with (acute) exacerbation [facility] Forms: - Medication Reconciliation Form [facility] - SBAR form [facility] Signatures: Dispatcher [employer] EDAzucena Camacho RN RN bb Botello, Elizabeth eb Holmes, Maurice, MD MD 7 Heather Davidson RN RN kd3 Corrections: (The following items were deleted from the chart) 06:57 06:22 Arterial Blood Gas+RC.LAB.BRZ ordered. [facility] 09:07 07:32 wes lieberman
[2022-03-09] MEDS ORDERED: ONDANSETRON 4 MG/2 ML VIAL IV PRN (08:50)
[2022-03-09] MEDS ORDERED: ALBUTEROL 2.5 MG/3 ML NEB SOL NEB PRN (08:50)
[2022-03-09] MEDS ORDERED: ZOLPIDEM TARTRATE 5 MG TABLET PO PRN (08:50)
--- NOTE | 2022-03-09 08:58 | P.HP ---
Certification for Inpatient Patient admitted to: Observation With expected LOS: <2 Midnights Practitioner: I am a practitioner with admitting privileges, knowledge of patient current condition, hospital course, and medical plan of care. Services: Services provided to patient in accordance with Admission requirements found in Title 42 Section 412.3 of the Code of Federal Regulations Patient History Date of Service: 03/09/22 Reason for admission: COPD exacerbation. History of Present Illness: 61 y o patient was has a medical history significant for hypertension, hyperlipidemia, history of coronary artery disease, COPD who recently had exposure to a family member who was diagnosed with bronchitis. She reports shortness of breath with cough and she has sputum production. Sputum was said to be greenish in color and smells foul. She did report occasions of chills. She had no reported fever. She had no episode of nausea with vomiting or diarrhea. She was worked up in the emergency department and found to have significant respiratory distress and she was started on breathing treatment. She was asked to be admitted for inpatient care secondary to COPD exacerbation with suspicion for infectious process. She did report that she follows up with pulmonary physician on outpatient and she has had significant issues with long-acting medication of Advair and Symbicort. She presently takes Spiriva for COPD management. Allergies No Known Allergies Allergy (Verified 08/16/18 01:17) Home medications list reviewed: Yes Home Medications: Aspirin [Adult Aspirin] 81 mg PO DAILY 07/31/18 Albuterol Sulfate [Proair Hfa] 2 puff IH Q2H PRN 08/16/18 Omeprazole Magnesium [Prilosec Otc] 20 mg PO DAILY 03/09/22 Tiotropium Br/Olodaterol HCl [Stiolto Respimat Inhal [place]] 4 gm IH DAILY 03/09/22 predniSONE [Prednisone] 10 mg PO DAILY 03/09/22 - Past Medical/Surgical History Diabetic: No -: Hypertension -: Coronary artery disease, stent -: COPD on home oxygen and chronic steroids -: hx Tobacco abuse -: GERD -: Gastric ulcers -: -: Stent placement Psychosocial/ Personal History: The patient is . She has 5 children. She currently lives by herself. She recently moved to the area from [place]. - Family History Mother -: Heart disease, Cancer - Social History Alcohol use: Yes CD- Drugs: Yes Caffeine use: Yes Review of Systems General: Malaise Eyes: Unremarkable ENT: Unremarkable Respiratory: Cough, Shortness of Breath, SOB with Excertion Cardiovascular: Unremarkable Gastrointestinal: Unremarkable Genitourinary: Unremarkable Musculoskeletal: Unremarkable Integumentary: Unremarkable Neurological: Unremarkable Physical Examination - Physical Exam General: Alert, Moderate distress HEENT: Atraumatic, Normocephalic Neck: Supple Respiratory: Diminished, Expiratory wheezes Cardiovascular: Regular rate/rhythm, Normal S1 S2 Gastrointestinal: Soft and benign Musculoskeletal: No swelling Neurological: Normal speech, Normal affect - Studies Laboratory Data (last 24 hrs) 03/09/22 05:23: PT 9.9, INR 0.90 03/09/22 05:23: WBC 9.6, Hgb 14.1, Hct 42.1, Plt Count 278 03/09/22 05:23: Sodium 131 L, Potassium 3.9, BUN 5 L, Creatinine 0.47 L, Glucose 147 H, Magnesium 1.9, Total Bilirubin 0.2, AST 21, ALT 33, Alkaline Phosphatase 110 Assessment and Plan - Plan COPD with exacerbation: This is deemed infectious in etiology as per sputum production and symptomatology. Will continue present care with budesonide, DuoNeb inhalation therapy. Will continue IV steroid for management of COPD exacerbation. Empiric antibiotic with Rocephin and azithromycin started for suspected bronchitis/pneumonia management. Will follow symptomatology closely. Pulmonary physician to evaluate. Pneumonia: Presently deemed the cause of COPD exacerbation. Empiric antibiotic with Rocephin and azithromycin started. Follow closely. Hypertension: Monitor vital signs per unit protocol and continue antihypertensive medications History of coronary artery disease: Will continue antiplatelet therapy and statin. Prophylaxis: Lovenox for DVT prophylaxis CODE STATUS: Full code Disposition: She will be discharged home when she is deemed clinically stable. - Advance Directives Does patient have a Living Will: No Does patient have a Durable POA for Healthcare: No
[2022-03-09] MEDS: METHYLPREDNISOLONE 40 MG INJ IV SCH ×2 (09:00→20:33)
[2022-03-09] MEDS ORDERED: METHYLPREDNISOLONE 40 MG INJ ONE (09:24)
[2022-03-09] MEDS: ENOXAPARIN 40 MG/0.4 ML SQ SCH (11:33)
[2022-03-09 12:21] VITALS: BMI 27.3
[2022-03-09] MEDS: CEFTRIAXONE 1,000 MG in NA CHLORIDE 0.9% 50 ML IVPB SCH (12:43)
[2022-03-09] MEDS ORDERED: CEFTRIAXONE 1000 MG/VIAL ONE (12:45)
[2022-03-09] MEDS ORDERED: NA CHLORIDE 0.9% 50 ML ONE (12:47)
[2022-03-09] MEDS ORDERED: AZITHROMYCIN 250 MG TAB PO SCH (13:00)
[2022-03-09] MEDS: IPRATROPIUM BROM 0.5MG/2.5ML NEB SCH ×2 (14:20→19:45)
--- NOTE | 2022-03-09 17:27 | EKG ---
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
[2022-03-09] MEDS: ACETAMINOPHEN 500 MG TAB PO PRN (20:33)
[2022-03-09] MEDS ORDERED: lisinopriL 10 MG TAB PO ONE (20:37)
[2022-03-10] MEDS: IPRATROPIUM BROM 0.5MG/2.5ML NEB SCH ×4 (01:10→19:51)
[2022-03-10 03:49] LABS: Absolute Lymphocytes (CBC) 0.9 K/uL (0.7-4.9); Hematocrit 39.8 % (36.0-45.0); Lymphocytes % 6.1 % (15.3-44.8); MCV 89.6 fL (80-100); MPV 7.1 fL (7.6-11.3); RBC Red Blood Cell Count 4.44 M/uL (3.86-4.86)
[2022-03-10 04:07] LABS: Potassium 4.1 mmol/L (3.5-5.1)
[2022-03-10] MEDS: METHYLPREDNISOLONE 40 MG INJ IV SCH ×2 (07:48→21:37)
[2022-03-10] MEDS: AZITHROMYCIN 250 MG TAB PO SCH (07:49)
[2022-03-10] MEDS: ENOXAPARIN 40 MG/0.4 ML SQ SCH (07:49)
[2022-03-10] MEDS: CEFTRIAXONE 1,000 MG in NA CHLORIDE 0.9% 50 ML IVPB SCH (07:49)
[2022-03-10] MEDS: lisinopriL 10 MG TAB PO SCH (08:40)
[2022-03-10] MEDS ORDERED: ACETAMINOPHEN 500 MG TAB PO PRN (11:38)
[2022-03-10] MEDS: AMLODIPINE 5 MG TAB PO SCH (11:58)
[2022-03-10] MEDS ORDERED: HOME MED 1 EA UNK [ALBUTEROL INHALER 60 PUFF/8 GM] IH PRN (12:10)
[2022-03-10] MEDS: GUAIFENESIN 600 MG SA TAB PO SCH ×2 (15:21→21:37)
[2022-03-10] MEDS: ACETAMINOPHEN 500 MG TAB PO PRN (17:26)
[2022-03-11] MEDS: IPRATROPIUM BROM 0.5MG/2.5ML NEB SCH ×4 (01:41→19:57)
[2022-03-11 06:00] LABS: Phosphorus 3.3 mg/dL (2.5-4.9); Potassium 4.4 mmol/L (3.5-5.1)
[2022-03-11] MEDS: ENOXAPARIN 40 MG/0.4 ML SQ SCH (07:40)
[2022-03-11] MEDS: CEFTRIAXONE 1,000 MG in NA CHLORIDE 0.9% 50 ML IVPB SCH (07:40)
[2022-03-11] MEDS: ASPIRIN EC 81 MG TAB PO SCH (07:41)
[2022-03-11] MEDS: AZITHROMYCIN 250 MG TAB PO SCH (07:41)
[2022-03-11] MEDS: GUAIFENESIN 600 MG SA TAB PO SCH ×2 (07:41→21:23)
[2022-03-11] MEDS: CYANOCOBALAMIN 1,000 MCG TAB PO SCH (07:42)
[2022-03-11] MEDS: PANTOPRAZOLE 40MG TABLET PO SCH (07:42)
[2022-03-11] MEDS: AMLODIPINE 5 MG TAB PO SCH (07:42)
[2022-03-11] MEDS: METHYLPREDNISOLONE 40 MG INJ IV SCH ×2 (07:42→21:23)
[2022-03-11] MEDS: lisinopriL 10 MG TAB PO SCH (07:43)
[2022-03-11] MEDS: OLODATEROL HCL MIST IH SCH (07:45)
[2022-03-11] MEDS: TIOTROPIUM BR IH SCH (07:45)
[2022-03-11] MEDS ORDERED: HOME MED 1 EA UNK (Cyanocobalamin (Vitamin B-12) [Vitamin B-12] 1,000 MCG Capsule) PO SCH (09:00)
[2022-03-11] MEDS ORDERED: HOME MED 1 EA UNK (Omeprazole Magnesium [Prilosec Otc] 20 MG Tablet.Dr) PO SCH (09:00)
--- NOTE | 2022-03-11 12:54 | RAD REPORT ---
EXAM DESCRIPTION: RAD - Chest Single View - 03/09/2022 5:54 am CLINICAL HISTORY: 61 years Female, SOB COMPARISON: CT Chest performed on 02/07/2021 TECHNIQUE: Single portable x-ray view of the chest performed on 03/09/2022 at 5:43 AM FINDINGS: The lungs are well expanded and are clear. There is no evidence of a pneumothorax. There a re punctate granulomata bilaterally. The cardiac silhouette is normal in size and configuration. The mediastinal contours are normal. No acute osseous abnormality is identified. There are chronic changes of the visualized right humeral diaphysis. No acute soft tissue abnormalities are seen. Lines and tubes: None. Free air: None IMPRESSION: 1. No evidence of acute intrathoracic disease. 2. Evidence of prior granulomatous disease. Electronically signed by: Aleta Bhatti DO 03/09/2022 6:30 AM CDT Due to temporary technical issues with the PACS/Fluency reporting system, reports are being signed by the in house radiologist without review as a courtesy to ensure prompt reporting. The interpreting r adiologist is fully responsible for the content of the report.
--- NOTE | 2022-03-11 14:44 | EKG ---
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
[2022-03-11] MEDS ORDERED: HYDRALAZINE HCL 20 MG/ML VIAL IV PRN (23:48)
--- NOTE | 2022-03-11 23:58 | P.PN ---
Date of Service: 03/11/22 Subjective Date of Service: 03/10/22 Chief Complaint: COPD exacerbation. Subjective: No new changes Physical Examination - Vital Signs Temperature: 97.3 F Blood Pressure: 182/78 Pulse: 87 Respirations: 18 Pulse Ox (%): 97 - Physical Exam General: Alert, Oriented x3 HEENT: Atraumatic, Normocephalic Neck: Supple Cardiovascular: Regular rate/rhythm, Normal S1 S2 Gastrointestinal: Soft and benign Musculoskeletal: No swelling Neurological: Normal speech Assessment And Plan - Plan COPD with exacerbation: This is deemed infectious in etiology as per sputum production and symptomatology. She has had some improvement. Will continue present care with DuoNeb inhalation therapy. Will continue IV steroid for management of COPD exacerbation. Empiric antibiotic with Rocephin and azithromycin to be continued for suspected bronchitis/pneumonia management. Will follow symptomatology closely. Pulmonary physician to evaluate. Pneumonia: Presently deemed the cause of COPD exacerbation. Empiric antibiotic with Rocephin and azithromycin to be continued. Follow closely. Hypertension: Blood pressure control is still poor. Monitor vital signs per unit protocol and continue antihypertensive medications. we will add amlodipine for better blood pressure management. History of coronary artery disease: Will continue antiplatelet therapy and statin. Prophylaxis: Lovenox for DVT prophylaxis CODE STATUS: Full code Disposition: for possible discharge in am.
[2022-03-12] MEDS: IPRATROPIUM BROM 0.5MG/2.5ML NEB SCH ×2 (01:10→08:21)
[2022-03-12 06:13] LABS: Absolute Lymphocytes (CBC) 1.1 K/uL (0.7-4.9); Hematocrit 41.8 % (36.0-45.0); Lymphocytes % 10.7 % (15.3-44.8); MPV 7.1 fL (7.6-11.3); RBC Red Blood Cell Count 4.65 M/uL (3.86-4.86)
[2022-03-12 06:29] LABS: Potassium 4.1 mmol/L (3.5-5.1)
--- NOTE | 2022-03-12 07:06 | RAD REPORT ---
EXAM DESCRIPTION: RAD - Chest Single View - 03/12/2022 5:36 am CLINICAL HISTORY: pneumonia COMPARISON: Portable March 09 TECHNIQUE: AP portable chest image was obtained 03/12/2022 5:36 am . FINDINGS: No new or progressive lung parenchymal process. Interstitial pattern is stable from February 14. Heart and vasculature are normal. No measurable pleural effusion and no pneumothorax. No acute bon y abnormality seen. No acute aortic findings suspected. IMPRESSION: Stable chest examination from March 09.
[2022-03-12] MEDS: METHYLPREDNISOLONE 40 MG INJ IV SCH (08:45)
[2022-03-12] MEDS: lisinopriL 10 MG TAB PO SCH (08:45)
[2022-03-12] MEDS: PANTOPRAZOLE 40MG TABLET PO SCH (08:46)
[2022-03-12] MEDS: AMLODIPINE 5 MG TAB PO SCH (08:46)
[2022-03-12] MEDS: CYANOCOBALAMIN 1,000 MCG TAB PO SCH (08:46)
[2022-03-12] MEDS: AZITHROMYCIN 250 MG TAB PO SCH (08:46)
[2022-03-12] MEDS: GUAIFENESIN 600 MG SA TAB PO SCH (08:46)
[2022-03-12] MEDS: ENOXAPARIN 40 MG/0.4 ML SQ SCH (08:47)
[2022-03-12] MEDS: CEFTRIAXONE 1,000 MG in NA CHLORIDE 0.9% 50 ML IVPB SCH (08:47)
[2022-03-12] MEDS: ASPIRIN EC 81 MG TAB PO SCH (08:47)
[2022-03-12] MEDS: TIOTROPIUM BR IH SCH (08:48)
[2022-03-12] MEDS: OLODATEROL HCL MIST IH SCH (08:48)
[2022-03-12] MEDS: ACETAMINOPHEN 500 MG TAB PO PRN (09:02)
[2022-03-12 09:32] VITALS: O2SAT 95
[2022-03-12 12:03] VITALS: BP 138/63; TEMP 99.2
--- NOTE | 2022-03-12 23:48 | P.DS ---
Discharge Date: 03/12/22 Disposition: ROUTINE DISCHARGE Discharge Condition: GOOD Reason for Admission: COPD exacerbation. Brief History of Present Illness: 61 y o patient was has a medical history significant for hypertension, hyperlipidemia, history of coronary artery disease, COPD who recently had exposure to a family member who was diagnosed with bronchitis. She reports shortness of breath with cough and she has sputum production. Sputum was said to be greenish in color and smells foul. She did report occasions of chills. She had no reported fever. She had no episode of nausea with vomiting or diarrhea. She was worked up in the emergency department and found to have significant respiratory distress and she was started on breathing treatment. She was asked to be admitted for inpatient care secondary to COPD exacerbation with suspicion for infectious process. She did report that she follows up with pulmonary physician on outpatient and she has had significant issues with long-acting medication of Advair and Symbicort. She presently takes Spiriva for COPD management. Hospital Course: Patient has done well during hospital stay. Clinically, patient is much better. At this time, patient is stable for discharge home. Patient will follow-up with consultants and PCP as an outpatient. Patient is feeling much better. She is going to follow up with Pulmonary as an outpatient. She is going to continue nebulizer treatments as needed. At this time, she is stable for discharge home. Vital Signs/Physical Exam: Temp Pulse Resp BP Pulse Ox 99.2 F 73 18 138/63 94 03/12/22 12:00 03/12/22 12:00 03/12/22 12:00 03/12/22 12:00 03/12/22 12:00 General: Alert, In no apparent distress, Oriented x3 Laboratory Data at Discharge: WBC 9.8 K/uL (4.3-10.9) D 03/12/22 05:52 Hgb 14.1 g/dL (12.0-15.0) 03/12/22 05:52 Hct 41.8 % (36.0-45.0) 03/12/22 05:52 Plt Count 269 K/uL (152-406) 03/12/22 05:52 PT 9.9 SECONDS (9.5-12.5) 03/09/22 05:23 INR 0.90 03/09/22 05:23 Sodium 132 mmol/L (136-145) L 03/12/22 05:52 Potassium 4.1 mmol/L (3.5-5.1) 03/12/22 05:52 BUN 14 mg/dL (7-18) 03/12/22 05:52 Creatinine 0.64 mg/dL (0.55-1.3) 03/12/22 05:52 Glucose 134 mg/dL (74-106) H 03/12/22 05:52 Phosphorus 3.3 mg/dL (2.5-4.9) 03/11/22 05:30 Magnesium 1.9 mg/dL (1.8-2.4) 03/09/22 05:23 Total Bilirubin 0.2 mg/dL (0.2-1.0) 03/09/22 05:23 AST 21 U/L (15-37) 03/09/22 05:23 ALT 33 U/L (12-78) 03/09/22 05:23 Alkaline Phosphatase 110 U/L (45-117) 03/09/22 05:23 Home Medications: Aspirin [Adult Aspirin] 81 mg PO DAILY 07/31/18 Albuterol Sulfate [Proair Hfa] 1 puff IH Q3H PRN 08/16/18 Acetaminophen [Acetaminophen Extra Strength] 2 tab PO BID PRN 03/09/22 Cyanocobalamin (Vitamin B-12) [Vitamin B-12] 1 tab PO DAILY 03/09/22 Omeprazole Magnesium [Prilosec Otc] 20 mg PO DAILY 03/09/22 Tiotropium Br/Olodaterol HCl [Stiolto Respimat Inhal [place]] 2 puff IH DAILY 03/09/22 Amlodipine [Norvasc*] 5 mg PO DAILY #30 tab 03/12/22 Azithromycin Tab [Zithromax*] 250 mg PO DAILY #5 tab 03/12/22 Ipratropium/Albuterol Sulfate [Iprat-Albut 0.5-3(2.5) mg/3 ml] 3 ml IH Q6HP PRN #60 ampul.neb 03/12/22 Nebulizer Accessories [Aeroneb Go] 1 each MC DAILY #1 each 03/12/22 Nebulizer [Aeroneb Go Nebulizer] 1 each MC DAILY #1 each 03/12/22 lisinopriL [Prinivil*] 10 mg PO DAILY #30 tab 03/12/22 predniSONE [Prednisone] 20 mg PO BID #20 03/12/22 New Medications: Nebulizer Accessories [Aeroneb Go] 1 each MC DAILY #1 each Nebulizer [Aeroneb Go Nebulizer] 1 each MC DAILY #1 each Ipratropium/Albuterol Sulfate [Iprat-Albut 0.5-3(2.5) mg/3 ml] 3 ml IH Q6HP PRN #60 ampul.neb PRN Reason: dyspnea Amlodipine [Norvasc*] 5 mg PO DAILY #30 tab predniSONE [Prednisone] 20 mg PO BID #20 lisinopriL [Prinivil*] 10 mg PO DAILY #30 tab Azithromycin Tab [Zithromax*] 250 mg PO DAILY #5 tab Physician Discharge Instructions: OK TO DC IV AND DC HOME FOLLOW-UP WITH PRIMARY CARE PROVIDER IN 1-2 WEEKS FOLLOW-UP WITH PULMONARY IN 1-2 WEEKS RETURN TO THE ER IF symptoms worsen CALL DR. HERNANDEZ AT [phone] IF ANY QUESTIONS REGARDING HOSPITAL STAY. PLEASE CALL THE FLOOR AT [phone] IF ANY MEDICATION OR NURSING QUESTIONS. Diet: Regular Activity: Fall precautions Followup: NONE,NONE [Primary Care Provider] - Time spent managing pt's care (in minutes): 35
== END 2022-03-12 12:36 | disposition home or self-care (01) | DRG 190 ==
LOC: ER 04:49 → ERHOLD 08:51 → 2ND 10:17 → OBSVTOIN 03-11 17:10
PROVIDERS: ADMIT Internal Medicine Nephrology; ATTEND Internal Medicine Nephrology
DX: J44.0 Chronic obstructive pulmonary disease with (acute) lower respiratory infection (principal); J18.9 Pneumonia, unspecified organism; J44.1 Chronic obstructive pulmonary disease with (acute) exacerbation; E78.5 Hyperlipidemia, unspecified; I25.10 Atherosclerotic heart disease of native coronary artery without angina pectoris; I10 Essential (primary) hypertension; R06.03 Acute respiratory distress; K21.9 Gastro-esophageal reflux disease without esophagitis; Z95.5 Presence of coronary angioplasty implant and graft; Z99.81 Dependence on supplemental oxygen; Z79.51 Long term (current) use of inhaled steroids; Z20.822 Contact with and (suspected) exposure to COVID-19; Z79.82 Long term (current) use of aspirin
CPT/HCPCS: 36415; 71045; 80048; 80076; 83735; 83880; 84100; 84484; 85025; 85610; 87070; 87205; 93005; 94640; 96374; 99285; G0378; J0360; J1650; J2920; J2930; U0003

== ENCOUNTER 2022-04-17 03:42 | Inpatient (IN) | payer OTHER ==
--- OUTSIDE RECORDS SUMMARY | 2022-04-17 03:47 | XMS REPORT | Continuity of Care Document ---
:1960 Author Organization [facility] t Address [address] [place] [address] Care Team Providers Name Role Phone PCP, PATIENT DOES NOT HAVE A Primary Care Physician UnavailJAGDISH Cole Attending Clinician Unavailable Jean Paul FRANK, Su Gordon Attending Clinician Art GONZALEZ MD, John Attending Clinician Samuel FRANK, Ginette Willingham Attending Clinician Sunny Montalvo Attending Clinician MIQUEL MIRANDA Attending Clinician Unavailable Miquel Live Attending Clinician Nilam Cameron Attending Clinician Nilam CARRASCO Attending Clinician Unavailable JESE MABRY Attending Clinician Unavailable JESE MABRY Admitting Clinician Unavailable Payers Payer Name Policy Type Policy Number Effective Date Expiration Date [facility] [id number] 2017 00:00:00 Problems Condition Condition Condition Status Onset Resolution Last Treating Co mments Source Name Details Category Date Date Treatment Clinician Date No known No known Disease Unive rs active active ity of problems problems [facility] Allergies, Adverse Reactions, Alerts Allergy Allergy Status Severity Reaction(s) Onset Inactive Treating Comm ents Source Name Type Date Date Clinician NO KNOWN Drug Active Univers ALLERGIE Class ity of S [facility] Social History Social Habit Start Date Stop Date Quantity Comments Source Exposure to Not sure University SARS-CoV-2 (event) [facility] Cigarettes smoked 2020-12-14 2020-12-14 Univers ity of current (pack per 00:00:00 00:00:00 [facility] ) - Reported Branch Cigarette 2020-12-14 2020-12-14 University of pack-years 00:00:00 00:00:00 [facility] Alcohol intake 2020-12-14 2020-12-14 Current drinker Unive rsity of 00:00:00 00:00:00 of alcohol [place] [facility] (finding) [facility] History of tobacco 2015-12-15 Cigarette Smoker University of use 00:00:00 [facility] Sex [birth year] Universit y of 00:00:00 00:00:00 [facility] Smoking Status Start Date Stop Date Source Former smoker 2020-12-14 00:00:00 2020-12-14 00:00:00 Universi ty of [facility] Unknown if ever smoked Formerly [facility] y [facility] Medications Ordered Filled Start Stop [...] by mouth ity of tablet 16:44: daily. [place] [address] Medical Branch theophyllin Yes 200mg Take 200 [...] by mouth ity of tablet 16:44: daily. [place] 06 Medical Branch ketorolac 2020- No 30mg 30 mg, Unive rs (TORADOL) 12-09 Intramuscu ity of injection 18:00: 17:09 lar, ONCE, [place] 30 mg 00 :00 1 dose, Medical Sat Branch 12/09/20 at 1300, SYMONE
Fa culty member approving Restricted medication : SUNNY GARDNER [...] (scale 7-10). Indication s: chronic pain HYDROcodone 2020-0 2020- No 1{tbl} 1 tablet, Univers -acetaminop 5-04 05-04 Oral, ity of hen (NORCO) 04:30: 03:35 ONCE, 1 [place] 10-325 mg 00 :00 dose, Sun Medic al tablet 1 01/16/20 at Branch tablet 2330, Routine albuterol 2020-0 Yes Inhale. Unive rs sulfate 5-04 ity of (PROAIR 02:39: [place] DIGIHALER) 45 Medical 90 Branch mcg/actuati on [...] by mouth ity of tablet 02:39: daily. [place] 45 [facility] Branch albuterol 2020-0 Yes Inhale. [...] by mouth ity of tablet 02:39: daily. [place] [address] Medical Branch acetaminoph 2020-0 Yes [id number] 1{tbl} Take 1 Univers en-codeine 5-03 tablet by ity of 300-30 mg 00:00: mouth [place] tablet 00 every 4 Medical (four) Branch hours as needed for Pain (scale 4-6). acetaminoph Yes [id number] 1{tbl} Take 1 Univers en-codeine 5-03 tablet by ity of 300-30 mg 00:00: mouth [place] tablet 00 every 4 Medical (four) Branch hours as needed for Pain (scale 4-6). acetaminoph Yes [id number] 1{tbl} Take 1 Univers en-codeine 5-03 tablet by ity of 300-30 mg 00:00: mouth [place] tablet 00 every 4 Medical (four) Branch hours as needed for Pain (scale 4-6). acetaminoph Yes [id number] 1{tbl} Take 1 Univers en-codeine 5-03 tablet by ity of 300-30 mg 00:00: mouth [place] tablet 00 every 4 Medical (four) Branch hours as needed for Pain (scale 4-6). acetaminoph Yes [id number] 1{tbl} Take 1 Univers en-codeine 5-03 tablet by ity of 300-30 mg 00:00: mouth [place] tablet 00 every 4 Medical (four) Branch hours as needed for Pain (scale 4-6). acetaminoph Yes [id number] 1{tbl} Take 1 Univers en-codeine 5-03 tablet by ity of 300-30 mg 00:00: mouth [place] tablet 00 every 4 Medical (four) Branch hours as needed for Pain (scale 4-6). acetaminoph 2020 Yes [id number] 1{tbl} Take 1 Univers en-codeine 5-03 tablet by ity of 300-30 mg 00:00: mouth [place] tablet 00 every 4 Medical (four) Branch hours as needed for Pain (scale 4-6). acetaminoph 2020- No [id number] 1{tbl} Take 1 Univers en-codeine 5-03 04-01 tablet by ity of 300-30 mg 00:00: 00:00 mouth [place] tablet 00 :00 every 4 Medical (four) Branch hours as needed for Pain (scale 4-6). acetaminoph 2020-0 2020- No [id number] 1{tbl} Take 1 Univers en-codeine 5-03 04-01 tablet by ity of 300-30 mg 00:00: 00:00 mouth [place] tablet 00 :00 every 4 Medical (four) Branch hours as needed for Pain (scale 4-6). acetaminoph 2019-0 2020- No [id number] 1{tbl} Take 1 Univers en-codeine 5-03 04-01 [...] 40 mg 3-31 ity of capsule 00:00: [place] 00 Medical Branch PROAIR HFA 2020-0 Yes [...] Univers 90 3-31 ity of mcg/actuati 00:00: [place] on inhaler 00 Medical Branch omeprazole 2020-0 Yes Univers 40 mg 3-31 ity of capsule 00:00: [place] 00 [facility] Branch PROAIR HFA 2020-0 Yes Univers 90 3-31 ity of mcg/actuati 00:00: [place] on inhaler 00 Medical Branch omeprazole 2020-0 Yes Univers 40 mg 3-31 ity of capsule 00:00: [place] 00 [facility] Branch PROAIR HFA 2020-0 Yes Univers 90 3-31 ity of mcg/actuati 00:00: [place] on inhaler 00 Medical Branch omeprazole 2020-0 Yes Univers 40 mg 3-31 ity of capsule 00:00: [place] 00 [facility] Branch PROAIR HFA 2020-0 Yes Univers 90 3-31 ity of mcg/actuati 00:00: [place] on inhaler 00 Medical Branch omeprazole 2020-0 Yes Univers 40 mg 3-31 ity of capsule 00:00: [place] 00 [facility] Branch PROAIR HFA 2020-0 Yes Univers 90 3-31 ity of mcg/actuati 00:00: [place] on inhaler 00 Medical Branch benzonatate 2020-0 Yes Univer s 100 mg 2-11 ity of capsule 00:00: [place] 00 [facility] Branch levoFLOXaci 2020-0 Yes Univer s n 500 mg 2-11 ity of tablet 00:00: [place] 00 [facility] Branch benzonatate 2020-0 Yes Univer s 100 mg 2-11 ity of capsule 00:00: [place] 00 [facility] Branch levoFLOXaci 2020-0 Yes Univer s n 500 mg 2-11 ity of tablet 00:00: [place] 00 [facility] Branch benzonatate 2020-0 Yes Univer s 100 mg 2-11 ity of capsule 00:00: [place] 00 [facility] Branch levoFLOXaci 2020-0 Yes Univer s n 500 mg 2-11 ity of tablet 00:00: [place] 00 [facility] Branch benzonatate 2020-0 Yes Univer s 100 mg 2-11 ity of capsule 00:00: [place] 00 [facility] Branch benzonatate 2020-0 Yes Univer s 100 mg 2-11 ity of capsule 00:00: [place] 00 [facility] Branch benzonatate 2020-0 Yes Univer s 100 mg 2-11 ity of capsule 00:00: [place] 00 [facility] Branch benzonatate 2020-0 Yes Univer s 100 mg 2-11 ity of capsule 00:00: [place] 00 [facility] Branch benzonatate 2020-0 Yes Univer s 100 mg 2-11 ity of capsule 00:00: [place] 00 [facility] Branch benzonatate 2020-0 Yes Univer s 100 mg 2-11 ity of capsule 00:00: [place] 00 [facility] Branch levoFLOXaci 2020-0 Yes Univer s n 500 mg 2-11 ity of tablet 00:00: [place] 00 [facility] Branch benzonatate 2020-0 Yes Univer s 100 mg 2-11 ity of capsule 00:00: [place] 00 [facility] Branch levoFLOXaci 2020-0 Yes Univer s n 500 mg 2-11 ity of tablet 00:00: [place] 00 [facility] Branch levoFLOXaci 2020-0 2020- No Unive rs n 500 mg 2-11 - ity of tablet 00:00: 00:00 [place] 00 :00 Medical Branch levoFLOXaci 2020-0 2020- No Unive rs n 500 mg 2-07 19- ity of tablet 00:00: 00:00 [place] 00 :00 Medical Branch levoFLOXaci 2020-0 2020- No Unive rs n 500 mg 2-07 19- ity of tablet 00:00: 00:00 [place] 00 :00 Medical Branch Vital Signs Vital Name Observation Time Observation Value Comments Source Body temperature 2020-12-14 16:33:00 36.17 [facility] Body weight 2020-12-14 16:33:00 61.735 kg [facility] BMI 2020-12-14 16:33:00 25.72 kg/m2 [facility] Body temperature 2020-12-14 16:33:00 36.17 [facility] Body weight 2020-12-14 16:33:00 61.735 kg [facility] BMI 2020-12-14 16:33:00 25.72 kg/m2 [facility] Systolic blood 2020-12-09 18:39:00 139 mm[Hg] Univer sity of pressure [facility] Diastolic blood 2020-12-09 18:39:00 76 mm[Hg] Unive rsity of pressure [facility] Heart rate 2020-12-09 18:39:00 81 /min [facility] Body temperature 2020-12-09 18:39:00 36.67 [facility] Respiratory rate 2020-12-09 18:39:00 18 /min [facility] Oxygen saturation in 2020-12-09 18:39:00 93 /min University of Arterial blood by [facility] Pulse oximetry Branch Body weight 2020-12-09 15:32:00 68 kg Universi ty of [facility] BMI 2020-12-09 15:32:00 28.33 kg/m2 Universi ty of [facility] Body height 2020-01-18 14:28:00 154.9 cm Universi ty of [facility] Body weight 2020-01-18 14:28:00 68.04 kg Universi ty of [facility] BMI 2020-01-18 14:28:00 28.34 kg/m2 Universi ty of [facility] Systolic blood 2020-01-17 03:47:00 165 mm[Hg] [facility] [place] [facility] 2020-01-17 03:47:00 71 mm[Hg] [facility] Heart rate 2020-01-17 03:47:00 116 /min Universi ty [facility] Respiratory rate 2020-01-17 03:47:00 22 /min [facility] Oxygen saturation in 2020-01-17 03:47:00 98 /min University of Arterial blood by [facility] Pulse oximetry [place] Body temperature 2020-01-17 02:34:00 37.33 Nicky [facility] Body height 2020-01-17 02:34:00 154.9 cm Universi ty of [facility] Body weight 2020-01-17 02:34:00 68.04 kg Universi ty of [facility] BMI 2020-01-17 02:34:00 28.34 kg/m2 Universi ty of [facility] Procedures Procedure Date / Time Performed Performing Clinician Mounika newsome XR HUMERUS 2 VW RIGHT 2020-12-14 15:54:43 [facility] Baker [facility]UM[facility] 2 VW RIGHT 2020-12-09 16:05:13 Sunny Gardner [facility] XR HUMERUS 2 VW RIGHT 2020-01-18 14:46:40 Miquel Miranda [facility] Encounters Start End Encounter Admission Attending Care Care Encounter Source Date/Time Date/Time Type Type Clinicians Facility Department ID 2021-07-15 Emergency [facility] [id number] Univers 08:56:48 ity [facility] 2021-01-04 2021-01-04 Outpatient Oanh ALANIS [facility] [id number] Univers 11:10:00 11:10:00 JAGDISH [id number] ity [facility] 2021-01-04 2021-01-04 [facility] [id number] [facility] 11:10:00 11:10:00 JAGDISH [facility] 2021-01-01 2021-01-01 [facility] [id number] 00:00:00 00:00:00 Su PRIMARY [id number] Heidi CARE [id number] PAVILLION [id number] [facility] 2021-01-01 2021-01-01 Abstract Jean Paul [facility] [id number] [facility] 00:00:00 00:00:00 Su PRIMARY [id number] it y of [place]idi [id number] [id number] Hi dical 198 [place] 2020-12-14 2020-12-14 [facility] [id number] Univers 10:45:35 23:59:00 Encounter Jagdish PRIMARY [id number] it[place] of [id number] [place] [id number] Hi dical 807 [place] 2020-12-14 2020-12-14 Office [facility] [id number] 10:39:46 12:35:18 Visit Jagdish PRIMARY [id number] CARE 4.2.7.2.686 PAVILLION [id number] [facility] 2020-12-14 2020-12-14 [facility] [id number] Univers 10:39:46 12:35:18 Visit Jagdish PRIMARY [id number] it [place] of [id number] [id number] Hi dical [address] [place] 2020-12-14 2020-12-14 Outpatient Oanh ART [facility] [id number] Univers 10:30:00 10:30:00 JAGDISH [id number] ity of [facility] 2020-12-14 2020-12-14 [facility] [id number] Univers 10:30:00 10:30:00 JAGDISH ity [facility] 2020-12-13 2020-12-13 [facility] [id number] Univers 00:00:00 00:00:00 Ginette Fluke PRIMARY [id number] it[place] of [id number] [id number] Hi dical [address] [place] 2020-12-09 2020-12-09 Emergency Ibikunle, TRAUMA 1.2.840.114 [id number] Univers 09:47:00 14:21:00 [facility] [id number] [place] [id number] [address] 2020-03-14 2020-03-14 [facility] [id number] Univers 13:00:00 13:00:00 MIQUEL [id number] ity [facility] 2020-03-14 2020-03-14 [facility] [id number] Univers 13:00:00 13:00:00 MIQUEL ity [facility] 2020-01-18 2020-01-18 [facility]patient [facility] [id number] Univers 09:46:40 23:59:00 MIQUEL ity [facility] 2020-01-18 2020-01-18 [facility] 1.2.840.114 [id number] Univers 09:46:00 23:59:00 Encounter Miquel [facility] [id number] ity of Surgical 4.2.7.2.686 [place] Special[place] [id number] Hi dical es 809 [facility] 2020-01-18 2020-01-18 Office William [facility] [id number] Univers 09:27:00 09:42:00 Visit Miquel Kaur [facility] [id number] it y of Surgical 4.2.7.2.686 [place] [id number] Me dical es 198 [facility] 2020-01-17 2020-01-17 Telephone William [facility] [id number] Univers 00:00:00 00:00:00 Miquel Yan [id number] it y of Surgical 4.2.7.2.686 [place] [id number] Me dical es 198 [facility] 2020-01-16 2020-01-16 Emergency Nilam Carrasco [facility] [id number] Univers 21:39:45 22:49:00 [facility] 350.1.13.10 i ty of [place] 4.2.7.2.686 [place] [facility] [id number] [facility] 084 [place] 2020-01-16 2020-01-16 Emergency X Nilam CARRASCO [facility] ERT [id number] Univers 21:39:45 21:39:45 ity of [facility] Results Test Test Test Results Result Source [...] TECHNIQUE:2 radiographs of the right humerus. ? FINDINGS/[facility], Radiant Results Inft User - 12/14/2020 3:08 PM CDTSTUDY:XR HUMERUS 2 VW RIGHTORDERING PHYSICIAN: JAGDISH ALANIS IICLINICAL HISTORY: fx fu ;COMPARISON:12/09/2020TEC HNIQUE:2 radiographs of the right humerus. FINDINGS/IMPRESSION1. Angulated right humeral shaft fracture shows slightly increased callusformation but shows no significant healing.2. There is no new fracture.3. Bones are demineralized.RL:[id number] of report HUMERUS 2 VW 2020-11- Remote right humerus [facility] 27 fracture with [place] [facility] 16:39:04 [...] soft tissuedeformity.Prelimin whitney Report Dictated by Resident: Abdirizak Cerna MD., have reviewed this study and agree with the abovereport. XR HUMERUS 2 VW 2020-01- Her immobilization in [place] [address] the [place]man[place] brace and [place] [facility] 15:05:29 arm sling she [facility] with are much better than she initially had with a coaptation splint. ?She has a midshaft humerus fracture with a butterfly fragment. MYOCARD 2018-05- FINAL REPORT PATIENT ID: MICAELA, MULTI, 11 [id number] PROCEDURE: PHARM, SPECT 16:02:00 Rest/Stress MYOCARDIAL PERFUSION SPECT with regadenoson\XA9\ CPT CODE: 48901 INDICATION: Chest pain HISTORY: Cardiac risk factors: [...] MDReport Verified Date/Time: 05/26/2018 16:02:19 Reading Location: [address] Reading Room C METABOLIC PANEL 2018-05-26 [...] NOT 1092) ACCURATE CRE ATININE CLEARANCE IN SC EDICTING GLOMERULAR FILT RATION RATE. ESTIMATED GFR [...] code = 413) MR, MRA, BRAIN, WITHOUT [id number] 22:00:00Reason for exam:->Ischemic Stroke EvaluationFINAL REPORT MR, BRAIN, WITHOUT CONTRAST, MR, MRA, NECK, WITHOUT IV CONTRAST, MR, MRA, BRAIN, WITHOUT CONTRAST INDICATION: StrokeIschemic Stroke Evaluation TECHNIQUE: Multiplanar, m ultisequence MR images of the brain. 3-D time of flight MRA of the cranial and cervical circulation.2-D time of flight MRA of the neck. 3D MIP angiographic post-processing was performed. Stenosis evaluation utilized NASCET criteria. COMPARISON: Noncontrast brain CT of the same date FINDINGS: MRI BRAIN: Cerebral parenchyma: Unremarkable.Midline structures: Normally positioned.Cerebellum and brainstem: Normal.Ventricles: Normal volume.Extra-axial spaces: Unremarkable. Calvarium and skull base: Normalsignal.Paranasal sinuses and mastoid air cells: Visible chambers are clear.Orbital contents: No acute abnormality. Additional findings: None. MRA BRAIN:Internal carotid arteries: Patent. Middle cerebral arteries: Patent to distal branches.Anterior cerebral arteries: Intact.Basilar system: Patent vertebrobasilar system.Posterior cerebral arteries:Patent beyond the quadrigeminal segments.Additional findings: None. MRA NECK:Common carotid arteries: Unremarkable. Bifurcations: No flow-limiting stenosis.Cervical internal carotid arteries: No flow limiting stenosis.Vertebral arteries: Codominant. No origin or extracranial stenosis. IMPRESSION: No acute ischemia or parenchymal hemorrhage. No flow limiting stenosis in the major branch vessels of the cervical or cranial circulation. Signed: JR Keating Robert MDReport Verified Date/Time: 05/25/2018 22:00:39 Reading Location: [facility] C013Y CT Body Reading Room MR, MRA, NECK, WITHOUT IV [id number] 22:00:00Reason for exam:- >Ischemic Stroke EvaluationFINAL REPORT MR, BRAIN, WITHOUT CONTRAST, MR, MRA, NECK, WITHOUT IV CONTRAST, MR, MRA, BRAIN, WITHOUT CONTRAST INDICATION: StrokeIschemic Stroke Evaluation TECHNIQUE: Multiplanar, m ultisequence MR images of the brain. 3-D time of flight MRA of the cranial and cervical circulation.2-D time of flight MRA of the neck. 3D MIP angiographic post-processing was performed. Stenosis evaluation utilized NASCET criteria. COMPARISON: Noncontrast brain CT of the same date FINDINGS: MRI BRAIN: Cerebral parenchyma: Unremarkable.Midline structures: Normally positioned.Cerebellum and brainstem: Normal.Ventricles: Normal volume.Extra-axial spaces: Unremarkable. Calvarium and skull base: Normalsignal.Paranasal sinuses and mastoid air cells: Visible chambers are clear.Orbital contents: No acute abnormality. Additional findings: None. MRA BRAIN:Internal carotid arteries: Patent. Middle cerebral arteries: Patent to distal branches.Anterior cerebral arteries: Intact.Basilar system: Patent vertebrobasilar system.Posterior cerebral arteries:Patent beyond the quadrigeminal segments.Additional findings: None. MRA NECK:Common carotid arteries: Unremarkable. Bifurcations: No flow-limiting stenosis.Cervical internal carotid arteries: No flow limiting stenosis.Vertebral arteries: Codominant. No origin or extracranial stenosis. IMPRESSION: No acute ischemia or parenchymal hemorrhage. No flow limiting stenosis in the major branch vessels of the cervical or cranial circulation. Signed: JR Keating Robert MDReport Verified Date/Time: 05/25/2018 22:00:39 Reading Location: [address] Body Reading Room MR, BRAIN, WITHOUT [id number] 22:00:00Reason for exam:- >Ischemic Stroke EvaluationFINAL REPORT MR, BRAIN, WITHOUT CONTRAST, MR, MRA, NECK, WITHOUT IV CONTRAST, MR, MRA, BRAIN, WITHOUT CONTRAST INDICATION: StrokeIschemic Stroke Evaluation TECHNIQUE: Multiplanar, m ultisequence MR images of the brain. 3-D time of flight MRA of the cranial and cervical circulation.2-D time of flight MRA of the neck. 3D MIP angiographic post-processing was performed. Stenosis evaluation utilized NASCET criteria. COMPARISON: Noncontrast brain CT of the same date FINDINGS: MRI BRAIN: Cerebral parenchyma: Unremarkable.Midline structures: Normally positioned.Cerebellum and brainstem: Normal.Ventricles: Normal volume.Extra-axial spaces: Unremarkable. Calvarium and skull base: Normalsignal.Paranasal sinuses and mastoid air cells: Visible chambers are clear.Orbital contents: No acute abnormality. Additional findings: None. MRA BRAIN:Internal carotid arteries: Patent. Middle cerebral arteries: Patent to distal branches.Anterior cerebral arteries: Intact.Basilar system: Patent vertebrobasilar system.Posterior cerebral arteries:Patent beyond the quadrigeminal segments.Additional findings: None. MRA NECK:Common carotid arteries: Unremarkable. Bifurcations: No flow-limiting stenosis.Cervical internal carotid arteries: No flow limiting stenosis.Vertebral arteries: Codominant. No origin or extracranial stenosis. IMPRESSION: No acute ischemia or parenchymal hemorrhage. No flow limiting stenosis in the major branch vessels of the cervical or cranial circulation. Signed: JR Keating Robert MDReport Verified Date/Time: 05/25/2018 22:00:39 Reading Location: [place] [id number] CT Body Reading Room HEMOGLOBIN [id number] 09:45:00 Test Item Value Reference Range Interpretation Comments HEMOGLOBIN A1C (BEAKER) (test code = 5.4 % 4.3-6.1 368) LIPID [id number] 07:58:00 Test Item Value Reference Range Interpretation Comments TRIGLYCERIDES (BEAKER) (test code = 190 mg/dL 540) CHOLESTEROL (BEAKER) (test code = 170 mg/dL 631) HDL CHOLESTEROL (BEAKER) (test code 62 mg/dL = 976) LDL CHOLESTEROL CALCULATED (BEAKER) 70 mg/dL (test code = 633) Triglyceride Reference Range: Low Risk <150 Borderline 150-199 High Risk 200- 499 Very High Risk >=500Cholesterol Reference Range: Low Risk <200 Borderline 200-239 High Risk >240HDL Cholesterol Reference Range: Low Risk >=60 High Risk <40LDL Cholesterol Reference Range: Optimal <100 Near Optimal 100-129 Borderline 130-159 High 160-189 Very High >=190TSH/FREE T4 IF [id number] 06:27:00 Test Item Value Reference Range Interpretation Comments THYROID STIMULATING HORMONE 4.27 uIU/mL 0.35-4.94 (BEAKER) (test code = 772) CREATINE KINASE (CK), TOTAL AND [id number] 06:13:00 Test Item Value Reference Range Interpretation Comments CREATINE KINASE TOTAL (BEAKER) 53 U/L 29-200 (test code = 380) CREATINE KINASE-MB (BEAKER) (test 3.9 ng/mL 0.0-6.6 code = 750) CREATINE KINASE-MB INDEX (BEAKER) 7.4 % (test code = 395) CK-MB Reference Range:<6.7 Normal6.7-10.0 Borderline>10.0 AbnormalTROPONIN [id number] 06:13:00 Test Item Value Reference Range Interpretation [...] acidosis, acute neurological disease, and persistent tachyarrhythmia.CALCIUM, [id number] 06:13:00 Test Item Value Reference Range Interpretation Comments CALCIUM IONIZED (BEAKER) (test 1.17 mmol/L 1.12-1.27 code = 698) PH, BLOOD (BEAKER) (test code = 7.33 1810) [id number] 06:05:00 Test Item Value Reference Range Interpretation Comments PHOSPHORUS (BEAKER) (test code = 4.1 mg/dL 2.3-4.7 604) [id number] 06:05:00 Test Item Value Reference Range Interpretation Comments MAGNESIUM (BEAKER) (test code = 2.0 mg/dL 1.6-2.6 627) CBC W/PLT COUNT & AUTO [id number] 05:44:00 Test Item Value Reference Range Interpretation [...] PERCENT (BEAKER) (test code = 2801) TROPONIN [id number] 01:50:00 Test Item Value Reference Range Interpretation [...] acute neurological disease, and persistent tachyarrhythmia.BASIC METABOLIC [id number] 22:36:00 Test Item Value Reference Range Interpretation [...] PATIEN TS. CREATINE KINASE (CK), TOTAL AND [id number] 21:46:00 Test Item Value Reference Range Interpretation Comments CREATINE KINASE TOTAL (BEAKER) 82 U/L 29-200 (test code = 380) CREATINE KINASE-MB (BEAKER) (test 6.0 ng/mL 0.0-6.6 code = 750) CREATINE KINASE-MB INDEX (BEAKER) 7.3 % (test code = 395) CK-MB Reference Range:<6.7 Normal6.7-10.0 Borderline>10.0 AbnormalPT/APTT 2018-05-24 21:28:00 Test Item Value Reference Range Interpretation Comments PROTIME (BEAKER) (test code = 14.5 seconds 11.7-14.7 759) INR (BEAKER) (test code = 370) 1.1 <=5.9 PARTIAL THROMBOPLASTIN TIME 29.0 seconds 22.5-36.0 (CHAPITO) (test code = 760) RECOMMENDED COUMADIN/WARFARIN INR THERAPY RANGESSTANDARD DOSE: 2.0 - 3.0 Includes: PROPHYLAXIS for venous thrombosis, systemic embolization; TREATMENT for venous thrombosis and/or pulmonary embolus.HIGH RISK: Target INR is 2.5-3.5 for patients with mechanical heart valves.RAD, CHEST, 1 VIEW, NON [id number] 20:22:00Reason for exam:->SOBShould this be performed at the bedside?- >YesIs the patient ?->NoFINAL REPORT History: Shortness of breath. Comparison: None. Findings: A singleview of the chest is submitted. The patient is rotated to the left. The cardiomediastinal contours ar e unremarkable. The lungs are hyperinflated. There is no focal consolidation, pneumothorax, large pleural effusion or evidence of overt pulmonary edema. There is no acute bony abnormality. Signed: Jose Decker MDReport Verified Date/Time: 05/24/2018 20:22:32 Reading Location: [address] Reading Room
[2022-04-17] MEDS ORDERED: LEVALBUTEROL 1.25 MG/3 ML NEB ONE (03:54)
[2022-04-17] MEDS ORDERED: METHYLPREDNISOLONE 125 MG INJ ONE (03:54)
[2022-04-17] MEDS ORDERED: MAGNESIUM SULFATE 1 gm IVPB 1 GM/100 ML BAG IV ONE (04:02)
[2022-04-17] MEDS ORDERED: NA CHLORIDE 0.9% 1,000 ML ONE (04:02)
[2022-04-17 04:20] LABS: Arterial Blood Carboxyhemoglob 1.2 % (0-1.5); Blood Gas Oxyhemoglobin 92.7 % (94-97); Blood O2 Saturation 95.2 % (92-98.5)
[2022-04-17 05:00] LABS: Absolute Lymphocytes (CBC) 5.1 K/uL (0.7-4.9); Hematocrit 41.3 % (36.0-45.0); Lymphocytes % 38.3 % (15.3-44.8); MCV 91.5 fL (80-100); MPV 6.6 fL (7.6-11.3); RBC Red Blood Cell Count 4.51 M/uL (3.86-4.86)
[2022-04-17 05:03] LABS: Protime INR 0.85
[2022-04-17 05:13] LABS: ALT/SGPT 27 U/L (12-78); AST/SGOT 21 U/L (15-37); Albumin 3.6 g/dL (3.4-5.0); Alkaline Phosphatase 90 U/L (45-117); BUN Blood Urea Nitrogen 8 mg/dL (7-18); Bicarbonate 33 mmol/L (21-32); Bilirubin Total 0.1 mg/dL (0.2-1.0); Glomerular Filtration Rate 100 ml/min (=/>90); Glucose Level 118 mg/dL (74-106); Magnesium 2.3 mg/dL (1.8-2.4); NT PRO-BNP 51 pg/mL (<125); Potassium 3.9 mmol/L (3.5-5.1); Protein, Total 7.5 g/dL (6.4-8.2); Sodium Level 137 mmol/L (136-145)
[2022-04-17 05:14] LABS: Bilirubin Direct < 0.1 mg/dL (0-0.2)
--- NOTE | 2022-04-17 05:32 | P.HP ---
Certification for Inpatient Patient admitted to: Inpatient With expected LOS: >2 Midnights Patient will require the following post-hospital care: None Practitioner: I am a practitioner with admitting privileges, knowledge of patient current condition, hospital course, and medical plan of care. Services: Services provided to patient in accordance with Admission requirements found in Title 42 Section 412.3 of the Code of Federal Regulations <Manuel Andrade - Last Filed: 04/17/22 05:28> Patient History Date of Service: 04/17/22 Reason for admission: COPD exacerbation History of Present Illness: 61-year-old female with history of COPD on chronic home oxygen at 2 L and chronic steroid therapy prednisone 10 mg daily, CVA, GERD, hypertension, CAD presents to the emergency department for hypoxia. She also admits to drinking daily, she had had a few beers this evening and fell asleep without her oxygen on she was found by her family hypoxic and cyanotic, oxygen was applied to patient and her color and mental status had improved although she still has diffuse expiratory wheezing and COPD exacerbation. Her labs were significant for mild hypercapnic respiratory failure, mild leukocytosis although she is on chronic steroids and alcohol level of 430. ED provider wishes to admit for further evaluation and management of COPD with exacerbation, acute on chronic hypercapnic/hypoxic respiratory. - Past Medical/Surgical History Diabetic: No -: Hypertension -: Coronary artery disease, stent -: COPD on home oxygen and chronic steroids -: hx Tobacco abuse -: GERD -: Gastric ulcers -: Alcohol abuse -: -: Stent placement Psychosocial/ Personal History: The patient is . She has 5 children. She currently lives by herself. She recently moved to the area from [place]. - Family History Mother -: Heart disease, Cancer - Social History Alcohol use: Yes CD- Drugs: Yes Caffeine use: Yes Place of Residence: Home <Manuel Andrade - Last Filed: 04/17/22 05:28> Date of Service: 04/17/22 <Josue Mcmahon - Last Filed: 04/17/22 19:08> Allergies No Known Allergies Allergy (Verified 08/16/18 01:17) Home Medications: Aspirin [Adult Aspirin] 81 mg PO DAILY 07/31/18 Albuterol Sulfate [Proair Hfa] 1 puff IH Q3H PRN 08/16/18 Acetaminophen [Acetaminophen Extra Strength] 2 tab PO BID PRN 03/09/22 Cyanocobalamin (Vitamin B-12) [Vitamin B-12] 1 tab PO DAILY 03/09/22 Omeprazole Magnesium [Prilosec Otc] 20 mg PO DAILY 03/09/22 Tiotropium Br/Olodaterol HCl [Stiolto Respimat Inhal [place]] 2 puff IH DAILY 03/09/22 Amlodipine [Norvasc*] 5 mg PO DAILY #30 tab 03/12/22 Azithromycin Tab [Zithromax*] 250 mg PO DAILY #5 tab 03/12/22 Ipratropium/Albuterol Sulfate [Iprat-Albut 0.5-3(2.5) mg/3 ml] 3 ml IH Q6HP PRN #60 ampul.neb 03/12/22 Nebulizer Accessories [Aeroneb Go] 1 each MC DAILY #1 each 03/12/22 Nebulizer [Aeroneb Go Nebulizer] 1 each MC DAILY #1 each 03/12/22 lisinopriL [Prinivil*] 10 mg PO DAILY #30 tab 03/12/22 predniSONE [Prednisone] 10 mg PO BID 04/17/22 traMADol HCL [Ultram*] 1 tab PO Q12H 04/17/22 Review of Systems 10-point ROS is otherwise unremarkable Respiratory: Cough, Shortness of Breath, SOB with Excertion, Sputum, Wheezing <Manuel Andrade - Last Filed: 04/17/22 05:28> Physical Examination - Physical Exam General: Alert, In no apparent distress, Oriented x3 HEENT: Atraumatic, PERRLA, Mucous membr. moist/pink, EOMI, Sclerae nonicteric Neck: Supple, 2+ carotid pulse no bruit, No LAD, Without JVD or thyroid abnormality Respiratory: Diminished, Expiratory wheezes, Other (Tachypnea) Cardiovascular: Regular rate/rhythm, Normal S1 S2 Capillary refill: <2 Seconds Gastrointestinal: Normal bowel sounds, No tenderness Musculoskeletal: No tenderness Integumentary: No rashes Neurological: Normal speech, Normal strength at 5/5 x4 extr, Normal tone, Normal affect Lymphatics: No axilla or inguinal lymphadenopathy - Studies Laboratory Data (last 24 hrs) 04/17/22 03:45: PT 9.3 L, INR 0.85, APTT 34.7 04/17/22 03:45: WBC 13.2 H, Hgb 13.6, Hct 41.3, Plt Count 349 04/17/22 03:45: Sodium 137, Potassium 3.9, BUN 8, Creatinine 0.61, Glucose 118 H, Magnesium 2.3, Total Bilirubin 0.1 L, AST 21, ALT 27, Alkaline Phosphatase 90 <Manuel Andrade - Last Filed: 04/17/22 05:28> - Studies Laboratory Data (last 24 hrs) 04/17/22 03:46: PT Cancelled, INR Cancelled, APTT Cancelled 04/17/22 03:46: WBC Cancelled, Hgb Cancelled, Hct Cancelled, Plt Count Cancelled 04/17/22 03:46: Sodium Cancelled, Potassium Cancelled, BUN Cancelled, Creatinine Cancelled, Glucose Cancelled, Magnesium Cancelled, Total Bilirubin Cancelled, AST Cancelled, ALT Cancelled, Alkaline Phosphatase Cancelled 04/17/22 03:45: PT 9.3 L, INR 0.85, APTT 34.7 04/17/22 03:45: WBC 13.2 H, Hgb 13.6, Hct 41.3, Plt Count 349 04/17/22 03:45: Sodium 137, Potassium 3.9, BUN 8, Creatinine 0.61, Glucose 118 H, Magnesium 2.3, Total Bilirubin 0.1 L, AST 21, ALT 27, Alkaline Phosphatase 90 <Josue Mcmahon - Last Filed: 04/17/22 19:08> Assessment and Plan - Plan Assessment: Acute on chronic hypercapnic/hypoxic respiratory failure secondary to COPD with exacerbation-on home oxygen/chronic steroids History of CAD History of CVA Hypertension GERD Alcohol abuse Plan: Acute on chronic hypercapnic/hypoxic respiratory failure secondary to COPD with exacerbation-on home oxygen/chronic steroids: IV steroids, scheduled nebs, ICS, pulmonology consult in place. Supplemental oxygen as needed, daily saturations on 2 L nasal cannula. Appreciate further input from pulmonology. Patient counseled on dangers of drinking/not wearing oxygen at home as she was found hypoxic/cyanotic after falling asleep or passing out without her oxygen on. History of CAD: Continue medications, patient unsure of her medications but does take aspirin daily we will continue aspirin. History of CVA: Continue aspirin, other home medications once verified. Hypertension: Lisinopril continued, continue other home medications once verified. GERD: Continue home medications Alcohol abuse: Alcohol level significantly elevated 430 she reports drinking around 6 18 ounce beers per day and also occasionally "some whiskey". Monitor for signs of alcohol withdrawal, as needed benzos. DVT PPX: Lovenox Code status: Full Discharge Plan: Home Plan to discharge in: 48 Hours - Advance Directives Does patient have a Living Will: No Does patient have a Durable POA for Healthcare: No - Code Status/Comfort Care Code Status Assessed: Yes (Full code) Critical Care: No Time Spent Managing Pts Care (In Minutes): 70 <Manuel Andrade - Last Filed: 04/17/22 05:28> - Plan Plan of care reviewed and agree as noted above. patient seen and examined on rounds this morning COPD exacerbation, continue treatment as noted above. pulm consulted h/o CAD, CVA, presentation most likely COPD. reports progressive SOB and dyspnea over the last month check echocardiogram, r/o CHF <Josue Mcmahon - Last Filed: 04/17/22 19:08>
[2022-04-17 06:04] VITALS: BMI 25.0
[2022-04-17] MEDS ORDERED: ONDANSETRON 4 MG/2 ML VIAL IV PRN (06:08)
[2022-04-17] MEDS ORDERED: BENZONATATE 100 MG CAP PO PRN (06:08)
--- NOTE | 2022-04-17 07:20 | EKG ---
Test Date: 2022-04-17 Test Time: 03:50:58 Candle Cutter: MEASUREMENT RESULTS: Intervals: Rate: 97 CT: 142 QRSD: 76 QT: 328 QTc: 416 [place]: P: 61 CT: 142 QRS: 54 T: 66 INTERPRETIVE STATEMENTS: Normal sinus rhythm Normal ECG Compared to ECG 03/30/2022 05:14:32 No significant changes Electronically Signed On 04-17-22 07:19:12 CDT by Yosvany Vizcarra
[2022-04-17] MEDS: ALBUTEROL 2.5 MG/3 ML NEB SOL NEB SCH ×2 (08:00→14:00)
[2022-04-17] MEDS: IPRATROPIUM BROM 0.5MG/2.5ML NEB SCH ×2 (08:15→14:00)
[2022-04-17] MEDS ORDERED: ALBUTEROL 2.5 MG/3 ML NEB SOL ONE (08:18)
[2022-04-17] MEDS ORDERED: IPRATROPIUM BROM 0.5MG/2.5ML ONE (08:18)
[2022-04-17] MEDS ORDERED: lisinopriL 10 MG TAB PO SCH (09:00)
[2022-04-17] MEDS ORDERED: METHYLPREDNISOLONE 40 MG INJ IV SCH (09:00)
[2022-04-17] MEDS ORDERED: ENOXAPARIN 40 MG/0.4 ML SQ SCH (09:00)
[2022-04-17] MEDS ORDERED: DULERA 200/5 (MOMETASONE/FORMOTEROL) INHALER IH SCH (09:00)
[2022-04-17] MEDS ORDERED: ASPIRIN EC 81 MG TAB PO SCH (09:00)
[2022-04-17] MEDS ORDERED: ASPIRIN EC 81 MG TAB PO ONE (09:33)
[2022-04-17] MEDS ORDERED: lisinopriL 10 MG TAB ONE (09:34)
[2022-04-17] MEDS ORDERED: METHYLPREDNISOLONE 40 MG INJ ONE (09:34)
[2022-04-17] MEDS ORDERED: ENOXAPARIN 40 MG/0.4 ML SQ ONE (09:35)
--- NOTE | 2022-04-17 10:46 | EDPHYS ---
Physician Documentation [facility] Name: Ansley Henderson Age: 61 yrs Sex: Female : 1960 Arrival Date: 04/17/2022 Time: 03:45 Bed 7 Private MD: ED Physician Jose Mcmahon HPI: 04/17 03:49 This 61 yrs old Female presents to ER via Unassigned with complaints of Breathing rn Difficulty. 03:49 The patient has shortness of breath at rest. Onset: The symptoms/episode began/occurred rn just prior to arrival. Duration: The symptoms are continuous. The patient's shortness of breath is aggravated by exertion, light activity, talking. Associated signs and symptoms: Pertinent positives: non-productive cough, Pertinent negatives: chest pain, fever, hemoptysis, loss of consciousness. Severity of symptoms: At their worst the symptoms were moderate in the emergency department the symptoms have improved. The patient has experienced similar episodes in the past. The patient has not recently seen a physician. EMS reports patient drinking tonight with daughter, thinks fell asleep without oxygen on. Normally on 2 L O2. NO fever. EMS reported respiratory distress, patient was "blue", put on oxygen with improvement of mental status and color. . Historical: - Allergies: 04:04 No Known Allergies; ll3 - PMHx: 04:04 CAD; COPD; CVA; GERD; HEART STENT; Hypertension; ll3 - Immunization history:: Client reports having NOT received the Covid vaccine. - Social history:: Smoking status: Patient/guardian denies using tobacco. - Family history:: not pertinent. - Hospitalizations: : No recent hospitalization is reported. ROS: 03:49 Constitutional: Negative for fever, chills, and weight loss, Eyes: Negative for injury, rn pain, redness, and discharge, Neck: Negative for injury, pain, and swelling, Cardiovascular: Negative for chest pain, palpitations, and edema, Respiratory: + sob Abdomen/GI: Negative for abdominal pain, nausea, vomiting, diarrhea, and constipation, Back: Negative for injury and pain, MS/Extremity: Negative for injury and deformity, Skin: Negative for injury, rash, and discoloration, Neuro: Negative for headache, weakness, numbness, tingling, and seizure. Exam: 03:49 Constitutional: This is a well developed, well nourished patient who is awake, alert, rn appears intoxicated, moderate tachypnea with 2-3 word sentences. Head/Face: Normocephalic, atraumatic. Eyes: Periorbital areas with no swelling, redness, or edema. ENT: dry MM, no stridor Cardiovascular: Tachycardic, regular. No pulse deficits. Respiratory: + moderate tachypnea with diffuse wheezing Abdomen/GI: soft, non-tender Skin: Warm, dry, no current cyanosis MS/ Extremity: Pulses equal, no cyanosis Neuro: Awake and alert, GCS 15 05:26 ECG was reviewed by the Attending Physician. rn Vital Signs: 03:58 BP 111 / 54; Pulse 96; Resp 25; Temp 97.6(O); Pulse Ox 89% on R/A; Weight 60.15 kg (M); ll3 Height 5 ft. 1 in. (154.94 cm); 05:22 BP 109 / 61; Pulse 98; Pulse Ox 100% on 2.5 lpm NC; ll3 03:58 Body Mass Index 25.05 (60.15 kg, 154.94 cm) ll3 MDM: 03:45 Patient medically screened. rn 05:08 Differential diagnosis: Bronchitis Chronic Obstructive Pulmonary Disease pneumonia, rn Pneumothorax pulmonary edema, reactive airway disease. Data reviewed: vital signs, nurses notes, lab test result(s), radiologic studies, plain films, and as a result, I will admit patient. Counseling: I had a detailed discussion with the patient and/or guardian regarding: the historical points, exam findings, and any diagnostic results supporting the discharge/admit diagnosis, lab results, radiology results, the need for further work-up and treatment in the hospital. Response to treatment: the patient's symptoms have mildly improved after treatment, and as a result, I will admit patient. Admission orders: after a detailed discussion of the patient's condition and case, the admit orders are written by me. ED course: Pt still dyspneic and tachypneic, speaking 2-3 word sentences, no longer cyanotic but require admission for COPD exacerbation. . 04/17 03:46 Order name: BMP rn 04/17 03:46 Order name: Blood Culture Adult (2) rn 04/17 03:46 Order name: CBC with Diff rn 04/17 03:46 Order name: Hepatic Function rn 04/17 03:46 Order name: Magnesium rn 04/17 03:46 Order name: NT PRO-BNP rn 04/17 03:46 Order name: PT-INR rn 04/17 03:46 Order name: Ptt, Activated rn 04/17 03:46 Order name: ETOH Level rn 04/17 03:46 Order name: SARS-COV-2 RT PCR (Document "Date of Onset" if Symptomatic) rn 04/17 03:48 Order name: ABG rn 04/17 03:54 Order name: ABG Arterial Blood Gas; Complete Time: 04:28 EDMS 04/17 04:25 Order name: SARS-COV-2 RT PCR EDMS 04/17 04:52 Order name: Basic Metabolic Panel; Complete Time: 05:27 EDMS 04/17 03:46 Order name: XRAY CXR (1 view) rn 04/17 03:52 Order name: Chest Single View EDMS 04/17 04:52 Order name: Liver (Hepatic) Function; Complete Time: 05:27 EDMS 04/17 04:52 Order name: NT PRO-BNP; Complete Time: 05:27 EDMS 04/17 04:52 Order name: Magnesium; Complete Time: 05:27 EDMS 04/17 04:52 Order name: Alcohol Serum/Plasma; Complete Time: 05:27 EDMS 04/17 04:52 Order name: CBC with Automated Diff; Complete Time: 05:05 EDMS 04/17 04:52 Order name: Protime (+INR); Complete Time: 05:05 EDMS 04/17 04:52 Order name: PTT, Activated Partial Thromb; Complete Time: 05:05 EDMS 04/17 04:53 Order name: Blood Culture EDMS 04/17 04:53 Order name: Blood Culture EDMS 04/17 11:52 Order name: Blood Culture EDMS 04/17 03:46 Order name: EKG; Complete Time: 08:27 rn 04/17 03:46 Order name: Cardiac monitoring; Complete Time: 04:26 rn 04/17 03:46 Order name: EKG - Nurse/Tech; Complete Time: 03:52 rn 04/17 03:46 Order name: IV Saline Lock; Complete Time: 04:43 rn 04/17 03:46 Order name: Labs collected and sent; Complete Time: 04:43 rn 04/17 03:46 Order name: O2 Per Protocol; Complete Time: 04:08 rn 04/17 03:46 Order name: O2 Sat Monitoring; Complete Time: 04:08 rn EC:26 Rate is 97 beats/min. Rhythm is regular. QRS [place] is Normal. MS interval is normal. QRS rn interval is normal. QT interval is normal. No Q waves. T waves are Normal. No ST changes noted. Clinical impression: Normal ECG. Interpreted by me. Reviewed by me. Administered Medications: 03:52 Drug: SOLU-Medrol (methylPrednisoLONE) 125 mg Route: IVP; Site: left wrist; kl 03:52 Drug: Xopenex (levalbuterol) (3) 1.25 mg Route: Inhalation; kl 04:38 Drug: Magnesium Sulfate 1 grams Route: IVPB; Infused Over: 1 hrs; Site: left forearm; aa9 04:38 Drug: NS 0.9% 1000 ml Route: IV; Rate: 1000 ml; Site: left forearm; aa9 Disposition Summary: 04/17/22 05:11 Hospitalization Ordered Hospitalization Status: Inpatient Admission rn Provider: Josue Mcmahon rn Condition: Stable rn Problem: an acute exacerbation rn Symptoms: have improved rn Bed/Room Type: Standard rn Location: Telemetry/MedSurg (Inpatient)(04/17/22 18:25) bd Room Assignment: 209(04/17/22 18:25) bd Diagnosis - COPD/ Chronic obstructive pulmonary disease with (acute) exacerbation rn - Alcohol abuse with intoxication rn Forms: - Medication Reconciliation Form rn - SBAR form rn Signatures: Dispatcher [employer] EDMS Fannie Noe Kimberly RN Edwige Pope RN Jose Andrews MD MD rn Attema, Lee, MAP MAKER-C MAP MAKER-Cla1 Guillaume Rush RN RN ll3 Mary Anne Orozco RN RN aa9 Corrections: (The following items were deleted from the chart) 05:39 05:11 Telemetry/MedSurg (Inpatient) jose j jhaveri 05:39 05:11 jose j jhaveri 18:25 05:39 [facility] ER HOLD mw 18:25 05:39 ERHOLD- bd
--- NOTE | 2022-04-17 10:46 | ER ---
Nurse's Notes [facility] Name: Ansley Henderson Age: 61 yrs Sex: Female : 1960 Arrival Date: 04/17/2022 Time: 03:45 Bed 7 Private MD: Diagnosis: COPD/ Chronic obstructive pulmonary disease with (acute) exacerbation;Alcohol abuse with intoxication Presentation: 04/17 03:58 Chief complaint: EMS states: Toned out for respiratory distress, EMS states pt was ll3 purple and O2 sats were in the 80s upon arrival, EMS reports pt intoxicated. Coronavirus screen: Vaccine status: Patient reports being unvaccinated. shortness of breath. Ebola Screen: No symptoms or risks identified at this time. Initial Sepsis Screen: Does the patient meet any 2 criteria? No. Patient's initial sepsis screen is negative. Does the patient have a suspected source of infection? No. Patient's initial sepsis screen is negative. Risk Assessment: Do you want to hurt yourself or someone else? Patient reports no desire to harm self or others. Onset of symptoms was April 17, 2022. Care prior to arrival: IV initiated. 20 GA, in the left wrist, Oxygen administered. via a non-rebreather mask. 03:58 Method Of Arrival: EMS: [facility] ll3 03:58 Acuity: ENMANUEL 2 ll3 04:50 Note pt refusing to be monitored removing cardiac leads bp cuff and o2 sensor. kl Triage Assessment: 04:04 General: Appears uncomfortable, Behavior is calm, agitated. General: Smells of alcohol. ll3 Pain: Denies pain. Neuro: Level of Consciousness is awake, alert, obeys commands, Oriented to person, place, time, situation. Respiratory: Reports shortness of breath Respiratory effort is labored, Onset: The symptoms/episode began/occurred today, the patient has moderate shortness of breath. Derm: Skin is pink, warm \T\ dry. Historical: - Allergies: 04:04 No Known Allergies; ll3 - PMHx: 04:04 CAD; COPD; CVA; GERD; HEART STENT; Hypertension; ll3 - Immunization history:: Client reports having NOT received the Covid vaccine. - Social history:: Smoking status: Patient/guardian denies using tobacco. - Family history:: not pertinent. - Hospitalizations: : No recent hospitalization is reported. Screenin:20 Abuse screen: Denies threats or abuse. Nutritional screening: No deficits noted. ll3 Tuberculosis screening: No symptoms or risk factors identified. Fall Risk No fall in past 12 months (0 pts). No secondary diagnosis (0 pts). IV access (20 points). Ambulatory Aid- None/Bed Rest/Nurse Assist (0 pts). Gait- Normal/Bed Rest/Wheelchair (0 pts) Mental Status- Oriented to own ability (0 pts). Total Lazar Fall Scale indicates No Risk (0-24 pts). Assessment: 04:15 General: Appears uncomfortable, Behavior is anxious, uncooperative, Smells of alcohol. kl Pain: Denies pain. Neuro: Level of Consciousness is awake, alert, obeys commands, Oriented to person, place. Cardiovascular: No deficits noted. Rhythm is sinus rhythm. Respiratory: Airway is patent Trachea midline Respiratory effort is labored, with nasal flaring, pursed lip, Respiratory pattern is tachypnea Breath sounds are diminished bilaterally. GI: No deficits noted. No signs and/or symptoms were reported involving the gastrointestinal system. : No deficits noted. No signs and/or symptoms were reported regarding the genitourinary system. EENT: No deficits noted. No signs and/or symptoms were reported regarding the EENT system. Derm: Bruising that is dark purple, on right arm and left arm. Musculoskeletal: brace to right upper arm pt reports broken humerus in 2015. 04:15 Respiratory: Breath sounds with wheezes bilaterally. kl 05:22 Reassessment: No changes from previously documented assessment. Patient and/or family ll3 updated on plan of care and expected duration. Pain level reassessed. 19:01 Reassessment: PT REFUSING ADMIT. COUNSELED BY HOSPITALIST TO REMAIN, BUT REFUSED. bp Vital Signs: 03:58 BP 111 / 54; Pulse 96; Resp 25; Temp 97.6(O); Pulse Ox 89% on R/A; Weight 60.15 kg (M); ll3 Height 5 ft. 1 in. (154.94 cm); 05:22 BP 109 / 61; Pulse 98; Pulse Ox 100% on 2.5 lpm NC; ll3 03:58 Body Mass Index 25.05 (60.15 kg, 154.94 cm) ll3 ED Course: 03:45 Patient arrived in ED. bb 03:45 Jose Mcmahon MD is Attending Physician. rn 04:04 Triage completed. ll3 04:04 Arm band placed on Patient placed in an exam room, on a stretcher, on rn cardiac, ll3 on pulse oximetry. 04:11 Chest Single View In Process Unspecified. EDMS 04:25 SARS-COV-2 RT PCR Sent. ll3 04:33 Guillaume Rush RN is Primary Nurse. ll3 04:50 Maintain EMS IV. Dressing intact. Good blood return noted. Site clean \T\ dry. Gauge \T\ kl site: 18 left wrist. 05:10 Josue Mcmahon MD is Hospitalizing Provider. rn 07:18 Primary Nurse role handed off by Guillaume Rush RN bp 07:18 Rashid Haywood, RN is Primary Nurse. bp 19:02 No provider procedures requiring assistance completed. IV discontinued. bp Administered Medications: 03:52 Drug: SOLU-Medrol (methylPrednisoLONE) 125 mg Route: IVP; Site: left wrist; kl 03:52 Drug: Xopenex (levalbuterol) (3) 1.25 mg Route: Inhalation; kl 04:38 Drug: Magnesium Sulfate 1 grams Route: IVPB; Infused Over: 1 hrs; Site: left forearm; aa9 04:38 Drug: NS 0.9% 1000 ml Route: IV; Rate: 1000 ml; Site: left forearm; aa9 Outcome: 05:11 Decision to Hospitalize by Provider. rn 19:02 AMA AMA form signed bp 19:02 Condition: stable 19:02 Instructed on the need for admit. 19:06 Patient left the ED. bp Signatures: Dispatcher [employer] EDMS Yoko Reaves RN RN kl Ballard, Brenda, RN RN bb Nieto, Roman, MD MD rn Peltier, Brian, RN RN bp Guillaume Rush RN RN ll3 Mary Anne Orozco RN RN aa9 Corrections: (The following items were deleted from the chart) 04:20 03:58 BP 111 / 54; Pulse 96bpm; Resp 22bpm; Pulse Ox 95% RA; Temp 97.6F Oral; Height 5 ll3 ft. 1 in.; ll3 05:59 03:58 BP 111 / 54; Pulse 96bpm; Resp 25bpm; Pulse Ox 89% RA; Temp 97.6F Oral; Height 5 ll3 ft. 1 in.; ll3
[2022-04-17] MEDS ORDERED: PNEUMOCOCCAL VACCINE 0.5 ML IMVAC ONE (12:00)
--- NOTE | 2022-04-17 13:56 | RAD REPORT ---
EXAM DESCRIPTION: RAD - Chest Single View - 04/17/2022 4:09 am CLINICAL HISTORY: 61 years Female, dyspnea COMPARISON: 03/09/2022 TECHNIQUE: Single portable x-ray view of the chest performed on 04/17/2022 at 4:05 AM FINDINGS: The lungs are hyperinflated. There is very mild coarsening of the interstitial lung markin gs. No focal airspace consolidation is identified. The lateral costophrenic sulci are clear. There is no evidence of a pneumothorax. The cardiac silhouette is normal in size and configuration. The mediastinal contours are normal. No acute osseous abnormality is identified. No acute soft tissue abnormalities are seen. Lines and tubes: None. Free air: None IMPRESSION: 1. Hyperinflation of the lungs. 2. Mild coarsening of the interstitial lung markings. No focal airspace consolidation is identified . No significant change when compared to the prior study. Electronically signed by: Aleta Bhatti DO 04/17/2022 4:56 AM CDT Due to temporary technical issues with the PACS/Fluency reporting system, reports are being signed by the in house radiologists without review as a courtesy to insure prompt reporting. The interpreting radiologist is fully responsible for the content of the report.
--- NOTE | 2022-04-17 14:22 | P.CNS ---
Date of Consult: 04/17/22 Reason for Consult: Respiratory failure Chief Complaint: COPD exacerbation History of Present Illness: Patient is 61 years of age well known to me with a history of severe COPD frequent exacerbations admitted to the hospital patient apparently ran out of her medications noncompliance as far as follow-up is concerned came in with hypoxic hypercapnia respiratory failure Allergies No Known Allergies Allergy (Verified 08/16/18 01:17) Home Medications: Aspirin [Adult Aspirin] 81 mg PO DAILY 07/31/18 Albuterol Sulfate [Proair Hfa] 1 puff IH Q3H PRN 08/16/18 Acetaminophen [Acetaminophen Extra Strength] 2 tab PO BID PRN 03/09/22 Cyanocobalamin (Vitamin B-12) [Vitamin B-12] 1 tab PO DAILY 03/09/22 Omeprazole Magnesium [Prilosec Otc] 20 mg PO DAILY 03/09/22 Tiotropium Br/Olodaterol HCl [Stiolto Respimat Inhal [place]] 2 puff IH DAILY 03/09/22 Amlodipine [Norvasc*] 5 mg PO DAILY #30 tab 03/12/22 Azithromycin Tab [Zithromax*] 250 mg PO DAILY #5 tab 03/12/22 Ipratropium/Albuterol Sulfate [Iprat-Albut 0.5-3(2.5) mg/3 ml] 3 ml IH Q6HP PRN #60 ampul.neb 03/12/22 Nebulizer Accessories [Aeroneb Go] 1 each MC DAILY #1 each 03/12/22 Nebulizer [Aeroneb Go Nebulizer] 1 each MC DAILY #1 each 03/12/22 lisinopriL [Prinivil*] 10 mg PO DAILY #30 tab 03/12/22 predniSONE [Prednisone] 10 mg PO BID 04/17/22 traMADol HCL [Ultram*] 1 tab PO Q12H 04/17/22 - Past Medical/Surgical History Diabetic: No -: Hypertension -: Coronary artery disease, stent -: COPD on home oxygen and chronic steroids -: hx Tobacco abuse -: GERD -: Gastric ulcers -: Alcohol abuse -: -: Stent placement Psychosocial/ Personal History: The patient is . She has 5 children. She currently lives by herself. She recently moved to the area from [place]. - Family History Mother Medical History: Heart disease, Cancer - Social History Smoking Status: Unknown if ever smoked Alcohol use: Yes CD- Drugs: Yes Caffeine use: Yes Place of Residence: Home Review of Systems General: Weakness Respiratory: Shortness of Breath Physical Examination Temp Pulse Resp BP Pulse Ox 93 H 20 126/76 97 04/17/22 08:00 04/17/22 08:00 04/17/22 08:00 04/17/22 08:00 General: Alert, Oriented x3, Mild distress Respiratory: Clear to auscultation bilaterally Cardiovascular: No edema, Regular rate/rhythm, Normal S1 S2 Integumentary: No rashes Laboratory Data (last 24 hrs) 04/17/22 03:46: PT Cancelled, INR Cancelled, APTT Cancelled 04/17/22 03:46: WBC Cancelled, Hgb Cancelled, Hct Cancelled, Plt Count Cancelled 04/17/22 03:46: Sodium Cancelled, Potassium Cancelled, BUN Cancelled, Creatinine Cancelled, Glucose Cancelled, Magnesium Cancelled, Total Bilirubin Cancelled, AST Cancelled, ALT Cancelled, Alkaline Phosphatase Cancelled 04/17/22 03:45: PT 9.3 L, INR 0.85, APTT 34.7 04/17/22 03:45: WBC 13.2 H, Hgb 13.6, Hct 41.3, Plt Count 349 04/17/22 03:45: Sodium 137, Potassium 3.9, BUN 8, Creatinine 0.61, Glucose 118 H, Magnesium 2.3, Total Bilirubin 0.1 L, AST 21, ALT 27, Alkaline Phosphatase 90 - Problems (1) Respiratory failure, acute and chronic Current Visit: Yes Status: Acute Plan: Patient is 61 years of age severe terminal COPD history of frequent exacerbations admitted again now with an exacerbation she was just recently discharged that I need and out of her medications patient does not follow up in my office did not contact my officeChest x-ray is consistent with COPD there is no evidence of an infectionPatient continues to drink heavily at home /Medications fax from my office medications fax from my office include prednisone, omeprazole, ProCare and Stiolto. Patient's oxygenation is satisfactory she is 96% on 2 L blood pressure is also stable patient continues to drink heavily and has been counseled many times is also following in the past with the fractures prognosis over already poorly planned to follow-up in my clinic and wonder two weeks Qualifiers: Respiratory failure complication: hypoxia and hypercapnia Qualified Code(s): J96.21 - Acute and chronic respiratory failure with hypoxia; J96.22 - Acute and chronic respiratory failure with hypercapnia
[2022-04-17 20:06] VITALS: TEMP 97.6
[2022-04-17 20:09] VITALS: BP 109/61; O2SAT 100
--- NOTE | 2022-04-17 23:59 | P.DS ---
Admission Date: 04/17/22 Discharge Date: 04/17/22 Disposition: AMA-LEFT AGAINST MEDICAL ADVIC Discharge Condition: FAIR Reason for Admission: COPD exacerbation Consultations: pulmonary-Jazmine Procedures: CXR 04/17/2022 4:09 am CLINICAL HISTORY: 61 years Female, dyspnea COMPARISON: 03/09/2022 TECHNIQUE: Single portable x-ray view of the chest performed on 04/17/2022 at 4:05 AM FINDINGS: The lungs are hyperinflated. There is very mild coarsening of the interstitial lung markings. No focal airspace consolidation is identified. The lateral costophrenic sulci are clear. There is no evidence of a pneumothorax. The cardiac silhouette is normal in size and configuration. The mediastinal contours are normal. No acute osseous abnormality is identified. No acute soft tissue abnormalities are seen. Lines and tubes: None. Free air: None IMPRESSION: 1. Hyperinflation of the lungs. 2. Mild coarsening of the interstitial lung markings. No focal airspace consolidation is identified. No significant change when compared to the prior study. Brief History of Present Illness: 61-year-old female with history of COPD on chronic home oxygen at 2 L and chronic steroid therapy prednisone 10 mg daily, CVA, GERD, hypertension, CAD presents to the emergency department for hypoxia. She also admits to drinking daily, she had had a few beers this evening and fell asleep without her oxygen on she was found by her family hypoxic and cyanotic, oxygen was applied to patient and her color and mental status had improved although she still has diffuse expiratory wheezing and COPD exacerbation. Her labs were significant for mild hypercapnic respiratory failure, mild leukocytosis although she is on chronic steroids and alcohol level of 430. ED provider wishes to admit for further evaluation and management of COPD with exacerbation, acute on chronic hypercapnic/hypoxic respiratory. Hospital Course: Pt was admitted overnight for COPD exacerbation, this evening she decided hat she wanted to leave AMA. She reports that she would like to go back home and sleep in her own bed and she will call Dr. Lucero for an appointment. She was instructed to increase her prednisone to 20mg PO BID for the next four days then back down to 10mg daily. She does have home 02. She was counseled on the risks of drinking excessively with her need for oxygen as it had come off in her sleep yesterday which could lead to from respiratory arrest. She feels as if her breathing is better and desires to leave now AMA. Pt was given strict return precautions. Vital Signs/Physical Exam: Temp Pulse Resp BP Pulse Ox 97.6 F 98 H 25 H 109/61 98 04/17/22 20:05 04/17/22 20:07 04/17/22 20:05 04/17/22 20:07 04/17/22 16:00 General: Alert, In no apparent distress, Oriented x3 HEENT: Atraumatic, PERRLA, EOMI Neck: Supple, JVD not distended Respiratory: Clear to auscultation bilaterally, Normal air movement Cardiovascular: Regular rate/rhythm, Normal S1 S2 Gastrointestinal: Normal bowel sounds, No tenderness Musculoskeletal: No tenderness Integumentary: No rashes Neurological: Normal speech, Normal tone, Normal affect Lymphatics: No axilla or inguinal lymphadenopathy Laboratory Data at Discharge: WBC Cancelled 04/17/22 03:46 Hgb Cancelled 04/17/22 03:46 Hct Cancelled 04/17/22 03:46 Plt Count Cancelled 04/17/22 03:46 PT Cancelled 04/17/22 03:46 INR Cancelled 04/17/22 03:46 APTT Cancelled 04/17/22 03:46 Sodium Cancelled 04/17/22 03:46 Potassium Cancelled 04/17/22 03:46 BUN Cancelled 04/17/22 03:46 Creatinine Cancelled 04/17/22 03:46 Glucose Cancelled 04/17/22 03:46 Magnesium Cancelled 04/17/22 03:46 Total Bilirubin Cancelled 04/17/22 03:46 AST Cancelled 04/17/22 03:46 ALT Cancelled 04/17/22 03:46 Alkaline Phosphatase Cancelled 04/17/22 03:46 Home Medications: Aspirin [Adult Aspirin] 81 mg PO DAILY 07/31/18 Albuterol Sulfate [Proair Hfa] 1 puff IH Q3H PRN 08/16/18 Acetaminophen [Acetaminophen Extra Strength] 2 tab PO BID PRN 03/09/22 Cyanocobalamin (Vitamin B-12) [Vitamin B-12] 1 tab PO DAILY 03/09/22 Omeprazole Magnesium [Prilosec Otc] 20 mg PO DAILY 03/09/22 Tiotropium Br/Olodaterol HCl [Stiolto Respimat Inhal [place]] 2 puff IH DAILY 03/09/22 Amlodipine [Norvasc*] 5 mg PO DAILY #30 tab 03/12/22 Azithromycin Tab [Zithromax*] 250 mg PO DAILY #5 tab 03/12/22 Ipratropium/Albuterol Sulfate [Iprat-Albut 0.5-3(2.5) mg/3 ml] 3 ml IH Q6HP PRN #60 ampul.neb 03/12/22 Nebulizer Accessories [Aeroneb Go] 1 each MC DAILY #1 each 03/12/22 Nebulizer [Aeroneb Go Nebulizer] 1 each MC DAILY #1 each 03/12/22 lisinopriL [Prinivil*] 10 mg PO DAILY #30 tab 03/12/22 predniSONE [Prednisone] 10 mg PO BID 04/17/22 traMADol HCL [Ultram*] 1 tab PO Q12H 04/17/22 Diet: Regular Activity: Ad cathy Followup: Unknown,U [Primary Care Provider] - Time spent managing pt's care (in minutes): 35
== END 2022-04-17 19:05 | disposition left against medical advice (07) | DRG 189 ==
LOC: ER 03:42 → ERHOLD 05:21
PROVIDERS: ADMIT Hospitalist; ATTEND Hospitalist
DX: J96.21 Acute and chronic respiratory failure with hypoxia (principal); J44.1 Chronic obstructive pulmonary disease with (acute) exacerbation; J96.22 Acute and chronic respiratory failure with hypercapnia; K21.9 Gastro-esophageal reflux disease without esophagitis; I10 Essential (primary) hypertension; I25.10 Atherosclerotic heart disease of native coronary artery without angina pectoris; F10.10 Alcohol abuse, uncomplicated; Z99.81 Dependence on supplemental oxygen; Z53.29 Procedure and treatment not carried out because of patient's decision for other reasons; Z79.52 Long term (current) use of systemic steroids; Z86.73 Personal history of transient ischemic attack (TIA), and cerebral infarction without residual deficits; Z95.5 Presence of coronary angioplasty implant and graft; Z91.19 Patient's noncompliance with other medical treatment and regimen; Z20.822 Contact with and (suspected) exposure to COVID-19
CPT/HCPCS: 36415; 71045; 80048; 80076; 80320; 82805; 83735; 83880; 85025; 85610; 85730; 87040; 87205; 93005; 99285; J1650; J2920; J2930; J3475; J7030; U0003

== ENCOUNTER 2022-04-28 08:15 | Emergency (ER) | payer OTHER ==
--- OUTSIDE RECORDS SUMMARY | 2022-04-28 08:19 | XMS REPORT | Continuity of Care Document ---
:1960 Author Organization [facility] t Address [address] [place] [address] Care Team Providers Name Role Phone PCP, [...] Type Policy Number Effective Date Expiration Date [facility] [id number] 2017 00:00:00 Problems Condition Condition Condition Status Onset Resolution Last Treating Co mments Source Name Details Category Date Date Treatment Clinician Date No known No known Disease Unive rs active active ity of problems problems [facility] Allergies, Adverse Reactions, Alerts Allergy Allergy Status Severity Reaction(s) Onset Inactive Treating Comm ents Source Name Type Date Date Clinician NO KNOWN Drug Active Univers ALLERGIE Class ity of S [facility] Social History Social Habit Start Date Stop Date Quantity Comments Source Exposure to Not sure University of SARS-CoV-2 (event) [facility] Cigarettes smoked 2020-12-14 2020-12-14 Univers ity of current (pack per 00:00:00 00:00:00 [facility] ) - Reported Branch Cigarette 2020-12-14 2020-12-14 University of pack-years 00:00:00 00:00:00 [facility] Alcohol intake 2020-12-14 2020-12-14 Current drinker Unive rsity of 00:00:00 00:00:00 of alcohol [place] [facility] (finding) Branch History of tobacco 2015-12-15 Cigarette Smoker University of use 00:00:00 [facility] Sex [birth year] At [birth year] Universit y of 00:00:00 00:00:00 [facility] Smoking Status Start Date Stop Date Source Former smoker 2020-12-14 00:00:00 2020-12-14 00:00:00 Universi ty [facility] Unknown if ever smoked [facility] y [facility] Medications Ordered Filled Start Stop Current Ordering [...] by mouth ity of tablet 16:44: daily. [place] [address] Medical Branch theophyllin Yes 200mg Take 200 [...] hr capsule 06 daily. Medical Branch tiotropium- 2021-0 Yes 1{puff} Inhale 1 Univers olodaterol 4-01 [...] rs sulfate 5-04 ity of (PROAIR 02:39: [place] DIGIHALER) 45 Medical 90 Branch mcg/actuati on [...] by mouth ity of tablet 02:39: daily. [place] 45 Medical Branch albuterol 2020-0 Yes Inhale. [...] tablet 02:39: daily. [place] 45 [facility] Branch acetaminoph 2020- Yes [id number] 1{tbl} Take 1 Univers en-codeine 5-03 tablet by ity of 300-30 mg 00:00: mouth [place] tablet 00 every 4 Medical (four) Branch hours as needed for Pain (scale 4-6). acetaminoph 2019- Yes [id number] 1{tbl} Take 1 Univers en-codeine 5-03 tablet by ity of 300-30 mg 00:00: mouth [place] tablet 00 every 4 Medical (four) Branch hours as needed for Pain (scale 4-6). acetaminoph Yes [id number] 1{tbl} Take 1 Univers en-codeine 5-03 tablet by ity of 300-30 mg 00:00: mouth [place] tablet 00 every 4 Medical (four) Branch hours as needed for Pain (scale 4-6). acetaminoph Yes [id number] 1{tbl} Take 1 Univers en-codeine 5-03 tablet by ity of 300-30 mg 00:00: mouth [place] tablet 00 every 4 Medical (four) Branch hours as needed for Pain (scale 4-6). acetaminoph Yes [id number] 1{tbl} Take 1 Univers en-codeine 5-03 tablet by ity of 300-30 mg 00:00: mouth [place] tablet 00 every 4 Medical (four) Branch hours as needed for Pain (scale 4-6). acetaminoph Yes [id number] 1{tbl} Take 1 Univers en-codeine 5-03 tablet by ity of 300-30 mg 00:00: mouth [place] tablet 00 every 4 Medical (four) Branch hours as needed for Pain (scale 4-6). acetaminoph Yes [id number] 1{tbl} Take 1 Univers en-codeine 5-03 tablet by ity of 300-30 mg 00:00: mouth [place] tablet 00 every 4 Medical (four) Branch hours as needed for Pain (scale 4-6). acetaminoph 2020- No [id number] 1{tbl} Take 1 Univers en-codeine 5-03 04-01 tablet by ity of 300-30 mg 00:00: 00:00 mouth [place] tablet 00 :00 every 4 Medical (four) Branch hours as needed for Pain (scale 4-6). acetaminoph 2020-0 2020- No [id number] 1{tbl} Take 1 Univers en-codeine 5-11 16- tablet by ity of 300-30 mg 00:00: 00:00 mouth [place] tablet 00 :00 every 4 Medical (four) Branch hours as needed for Pain (scale 4-6). acetaminoph 2020-0 2020- No [id number] 1{tbl} Take 1 Univers en-codeine 5-11 16- tablet by ity of 300-30 mg 00:00: 00:00 mouth [place] tablet 00 :00 every 4 Medical (four) Branch hours as needed for Pain (scale 4-6). omeprazole 2020-0 Yes Univers 40 mg 3-31 ity of capsule 00:00: [place] 00 Medical Branch PROAIR HFA 2020-0 Yes Univers 90 3-31 ity of mcg/actuati 00:00: [place] on inhaler 00 Medical Branch omeprazole 2020-0 Yes Univers 40 mg 3-31 ity of capsule 00:00: [place] 00 Medical Branch PROAIR HFA 2020-0 Yes Univers 90 3-31 ity of mcg/actuati 00:00: [place] on inhaler 00 Medical Branch omeprazole 2020-0 Yes Univers 40 mg 3-31 ity of capsule 00:00: [place] 00 Medical Branch PROAIR HFA 2020-0 Yes Univers 90 3-31 ity of mcg/actuati 00:00: [place] on inhaler 00 Medical Branch omeprazole 2020-0 Yes Univers 40 mg 3-31 ity of capsule 00:00: [place] 00 Medical Branch PROAIR HFA 2020-0 Yes Univers 90 3-31 ity of mcg/actuati 00:00: [place] on inhaler 00 Medical Branch omeprazole 2020-0 Yes Univers 40 mg 3-31 ity of capsule 00:00: [place] 00 Medical Branch PROAIR HFA 2020-0 Yes Univers 90 3-31 ity of mcg/actuati 00:00: [place] on inhaler 00 Medical Branch omeprazole 2020-0 Yes Univers 40 mg 3-31 ity of capsule 00:00: [place] 00 Medical Branch PROAIR HFA 2020-0 Yes Univers 90 3-31 ity of mcg/actuati 00:00: [place] on inhaler 00 Medical Branch omeprazole 2020-0 Yes Univers 40 mg 3-31 ity of capsule 00:00: [place] 00 Medical Branch PROAIR HFA 2020-0 Yes Univers 90 3-31 ity of mcg/actuati 00:00: [place] on inhaler 00 Medical Branch omeprazole 2020-0 Yes Univers 40 mg 3-31 ity of capsule 00:00: [place] 00 Medical Branch PROAIR HFA 2020-0 Yes Univers 90 3-31 ity of mcg/actuati 00:00: [place] on inhaler 00 Medical Branch omeprazole 2020-0 Yes Univers 40 mg 3-31 ity of capsule 00:00: [place] 00 Medical Branch PROAIR HFA 2020-0 Yes Univers 90 3-31 ity of mcg/actuati 00:00: [place] on inhaler 00 Medical Branch omeprazole 2020-0 Yes Univers 40 mg 3-31 ity of capsule 00:00: [place] 00 Medical Branch PROAIR HFA 2020-0 Yes Univers 90 3-31 ity of mcg/actuati 00:00: [place] on inhaler 00 Medical Branch benzonatate 2020-0 Yes Univer s 100 mg 2-11 ity of capsule 00:00: [place] 00 Medical Branch levoFLOXaci 2020-0 Yes Univer s n 500 mg 2-11 ity of tablet 00:00: [place] 00 Medical Branch benzonatate 2020-0 Yes Univer s 100 mg 2-11 ity of capsule 00:00: [place] 00 Medical Branch levoFLOXaci 2020-0 Yes Univer s n 500 mg 2-11 ity of tablet 00:00: [place] 00 Medical Branch benzonatate 2020-0 Yes Univer s 100 mg 2-11 ity of capsule 00:00: [place] 00 Medical Branch levoFLOXaci 2020-0 Yes Univer s n 500 mg 2-11 ity of tablet 00:00: [place] 00 Medical Branch benzonatate 2020-0 Yes Univer s 100 mg 2-11 ity of capsule 00:00: [place] 00 Medical Branch benzonatate 2020-0 Yes Univer s 100 mg 2-11 ity of capsule 00:00: [place] 00 Medical Branch benzonatate 2020-0 Yes Univer s 100 mg 2-11 ity of capsule 00:00: [place] 00 Medical Branch benzonatate 2020-0 Yes Univer s 100 mg 2-11 ity of capsule 00:00: [place] 00 Medical Branch benzonatate 2020-0 Yes Univer s 100 mg 2-11 ity of capsule 00:00: [place] 00 Medical Branch benzonatate 2020-0 Yes Univer s 100 mg 2-11 ity of capsule 00:00: [place] 00 Medical Branch levoFLOXaci 2020-0 Yes Univer s n 500 mg 2-11 ity of tablet 00:00: [place] 00 Medical Branch benzonatate 2020-0 Yes Univer s 100 mg 2-11 ity of capsule 00:00: [place] 00 Medical Branch levoFLOXaci 2020-0 Yes Univer s n 500 mg 2-11 ity of tablet 00:00: [place] 00 Medical Branch levoFLOXaci 2020-0 2020- No Unive rs n 500 mg 2-07 19- ity of tablet 00:00: 00:00 [place] 00 :00 Medical Branch levoFLOXaci 2020-0 2020- No Unive rs n 500 mg 2- ity of tablet 00:00: 00:00 [place] 00 :00 Medical Branch levoFLOXaci 2020-0 2020- No Unive rs n 500 mg 10-26- ity of tablet 00:00: 00:00 [place] 00 :00 Medical Branch Vital Signs Vital Name Observation Time Observation Value Comments Source Body temperature 2020-12-14 16:33:00 36.17 [facility] Body weight 2020-12-14 16:33:00 61.735 kg [facility] BMI 2020-12-14 16:33:00 25.72 kg/m2 [facility] Body temperature 2020-12-14 16:33:00 36.17 [facility] Body weight 2020-12-14 16:33:00 61.735 kg [facility] BMI 2020-12-14 16:33:00 25.72 kg/m2 [facility] Systolic blood 2020-12-09 18:39:00 139 mm[Hg] Univer sity of pressure [facility] Diastolic blood 2020-12-09 18:39:00 76 mm[Hg] Unive rsity of pressure [facility] Heart rate 2020-12-09 18:39:00 81 /min [facility] Body temperature 2020-12-09 18:39:00 36.67 Nicky [facility] ersity of [facility] Respiratory rate 2020-12-09 18:39:00 18 /min [facility] ersity of [facility] Oxygen saturation in 2020-12-09 18:39:00 93 /min University of Arterial blood by [facility] Pulse oximetry Branch Body weight 2020-12-09 15:32:00 68 kg Universi ty of [facility] BMI 2020-12-09 15:32:00 28.33 kg/m2 Universi ty of [facility] Body height 2020-01-18 14:28:00 154.9 cm Universi ty of [facility] Body weight 2020-01-18 14:28:00 68.04 kg Universi ty of [facility] BMI 2020-01-18 14:28:00 28.34 kg/m2 Universi ty of [facility] Systolic blood 2020-01-17 03:47:00 165 mm[Hg] [facility] Diastolic blood 2020-01-17 03:47:00 71 mm[Hg] [facility] 2020-01-17 03:47:00 116 /min Universi ty of [facility] Respiratory rate 2020-01-17 03:47:00 22 /min [facility] Oxygen saturation in 2020-01-17 03:47:00 98 /min University of Arterial blood by [facility] Pulse oximetry Branch Body temperature 2020-01-17 02:34:00 37.33 Nicky [facility] ersity [facility] Body height 2020-01-17 02:34:00 154.9 cm Universi ty of [facility] Body weight 2020-01-17 02:34:00 68.04 kg Universi ty of [facility] BMI 2020-01-17 02:34:00 28.34 kg/m2 Universi ty of [facility] Procedures Procedure Date / Time Performed Performing Clinician Mounika newsome XR HUMERUS 2 VW RIGHT 2020-12-14 15:54:43 [facility]W RIGHT 2020-12-09 16:05:13 [facility] HUMERUS 2 VW RIGHT 2020-01-18 14:46:40 Miquel Miranda [facility] En[facility] Start End Encounter Admission Attending Care Care Encounter Source Date/Time Date/Time Type Type Clinicians Facility Department ID 2021-07-15 Emergency [facility] [id number] Univers 08:56:48 ity [facility] 2021-01-04 2021-01-04 Outpatient [facility] [id number] Univers 11:10:00 11:10:00 JAGDISH [id number] ity [facility] 2021-01-04 2021-01-04 Outpatient [facility] [id number] Univers 11:10:00 11:10:00 JAGDISH [place] [facility] 2021-01-01 2021-01-01 [facility] [id number] 00:00:00 00:00:00 Su PRIMARY [id number] Heidi CARE [id number] PAVILLION [id number] 198 2021-01-01 2021-01-01 Abstract Jean Paul [facility] [id number] [facility] 00:00:00 00:00:00 Su PRIMARY [id number] it y of [id number] [id number] [place] dical 198 Branch 2020-12-14 2020-12-14 [facility] [id number] [facility] 10:45:35 23:59:00 Encounter Jagdish PRIMARY [id number] it[place] of [id number] [id number] [place]ical [address] [place] 2020-12-14 2020-12-14 [facility] [id number] 10:39:46 12:35:18 Visit Jagdish PRIMARY [id number] CARE [id number] PAVILLION [id number] [facility] 2020-12-14 2020-12-14 [facility] [id number] Univers 10:39:46 12:35:18 Visit Jagdish PRIMARY [id number] it [place] of [id number] [id number] Me dical [address] [place] 2020-12-14 2020-12-14 Outpatient Oanh ART [facility] [id number] Univers 10:30:00 10:30:00 JAGDISH [id number] ity of [facility] 2020-12-14 2020-12-14 Outpatient [facility] [id number] Univers 10:30:00 10:30:00 JAGDISH ity of [facility] 2020-12-13 2020-12-13 [facility] 1.2.840.114 [id number] Univers 00:00:00 00:00:00 Ginette Fluke PRIMARY [id number] it[place] of [id number] [id number] [place] dical [address] [place] 2020-12-09 2020-12-09 Emergency Ibikunle, TRAUMA 1.2.840.114 [id number] Univers 09:47:00 14:21:00 [facility] [id number] [place] [id number] [address] 2020-03-14 2020-03-14 Outpatient [facility] [id number] Univers 13:00:00 13:00:00 MIQUEL [id number] ity [facility] 2020-03-14 2020-03-14 Outpatient Oanh [facility] [id number] Univers 13:00:00 13:00:00 MIQUEL ity [facility] 2020-01-18 2020-01-18 Outpatient Oanh MIRANDA [facility] [id number] Univers 09:46:40 23:59:00 MIQUEL ity [facility] 2020-01-18 2020-01-18 [facility] 1.2.840.114 [id number] Univers 09:46:00 23:59:00 Encounter Miquel [facility] 350.1.13.10 ity of Surgical 4.2.7.2.686 [place] [id number] [place] dical es 809 [facility] 2020-01-18 2020-01-18 Office William [facility] 1.2.840.114 [id number] Univers 09:27:00 09:42:00 Visit Miquel Kaur [facility] [id number] it y of Surgical [id number] [place] [id number] Me dical es 198 [facility] 2020-01-17 2020-01-17 Telephone William [facility] [id number] Univers 00:00:00 00:00:00 Miquel Kaur [facility] [id number] it y of Surgical [id number] [place] [id number] Me dical es 198 [facility] 2020-01-16 2020-01-16 Emergency Nilam Carrasco [facility] 1.2.840.114 [id number] Univers 21:39:45 22:49:00 Rebecca Tok [id number] [place] [id number] [facility] 0[address] [place] 2020-01-16 2020-01-16 Emergency X DANILO, K [facility] ERT [id number] Univers 21:39:45 21:39:45 ity of [facility] Results Test Test Test Results Result Source [...] HUMERUS 2 VW 2020-11- Remote right humerus [facility] 27 fracture with [place] [facility] [...] soft tissuedeformity.Prelimin whitney Report Dictated by Resident: Adbirizak Cerna MD., have reviewed this study and agree with the abovereport. XR HUMERUS 2 VW 2020-01- Her immobilization in [place] [address] the Almanzar brace and [facility] 15:05:29 arm sling she came in [facility] with are much better than she initially had with a coaptation splint. ?She has a midshaft humerus fracture with a butterfly fragment. MYOCARD 2018-05- FINAL REPORT PATIENT ID: MICAELA, [facility], [id number] PROCEDURE: PHARM, SPECT 16:02:00 Rest/Stress MYOCARDIAL PERFUSION SPECT with regadenoson\XA9\ CPT CODE: 92323 INDICATION: Chest pain HISTORY: Cardiac risk factors: [...] lung due to COPD. 6. No previous [facility] study for comparison. NONINVASIVE RISK STRATIFICATION: The above findings are considered low risk (<1% annual mortality rate) based on the following criterion:- Normal or small myocardial perfusion defect at rest or with stress(JACC. 2012;59(9):857-81.) Signed: Case Carpenter MDReport Verified Date/Time: 05/26/2018 16:02:19 Reading Location: [address] Reading Room C METABOLIC PANEL 2018-05-26 [...] NOT 1092) ACCURATE CRE ATININE CLEARANCE IN [place] EDICTING GLOMERULAR FILT RATION RATE. ESTIMATED GFR [...] code = 413) MR, MRA, BRAIN, WITHOUT [id number] 22:00:00Reason for exam:->Ischemic Stroke EvaluationFINAL REPORT MR, [...] MDReport Verified Date/Time: 05/25/2018 22:00:39 Reading Location: [facility] B[facility] C013Y [facility] Body Reading Room MR, MRA, NECK, WITHOUT IV [id number] 22:00:00Reason for exam:- >Ischemic Stroke EvaluationFINAL REPORT [...] MDReport Verified Date/Time: 05/25/2018 22:00:39 Reading Location: [address] Body Reading Room MR, BRAIN, WITHOUT [id number] 22:00:00Reason for exam:- >Ischemic Stroke EvaluationFINAL REPORT [...] MDReport Verified Date/Time: 05/25/2018 22:00:39 Reading Location: [facility] C013Y CT Body Reading Room HEMOGLOBIN [id number] 09:45:00 Test Item Value Reference Range Interpretation Comments HEMOGLOBIN A1C (BEAKER) (test code = 5.4 % 4.3-6.1 368) LIPID [id number] 07:58:00 Test Item Value Reference Range Interpretation [...] High 160-189 Very High >=190TSH/FREE T4 IF [id number] 06:27:00 Test Item Value Reference Range Interpretation Comments THYROID STIMULATING HORMONE 4.27 uIU/mL 0.35-4.94 (BEAKER) (test code = 772) CREATINE KINASE (CK), TOTAL AND [id number] 06:13:00 Test Item Value Reference Range Interpretation Comments CREATINE KINASE TOTAL (BEAKER) 53 U/L 29-200 (test code = 380) CREATINE KINASE-MB (BEAKER) (test 3.9 ng/mL 0.0-6.6 code = 750) CREATINE KINASE-MB INDEX (BEAKER) 7.4 % (test code = 395) CK-MB Reference Range:<6.7 Normal6.7-10.0 Borderline>10.0 AbnormalTROPONIN [id number] 06:13:00 Test Item Value Reference Range Interpretation [...] acidosis, acute neurological disease, and persistent tachyarrhythmia.CALCIUM, [id number] 06:13:00 Test Item Value Reference Range Interpretation Comments CALCIUM IONIZED (BEAKER) (test 1.17 mmol/L 1.12-1.27 code = 698) PH, BLOOD (BEAKER) (test code = 7.33 1810) [id number] 06:05:00 Test Item Value Reference Range Interpretation Comments PHOSPHORUS (BEAKER) (test code = 4.1 mg/dL 2.3-4.7 604) [id number] 06:05:00 Test Item Value Reference Range Interpretation Comments MAGNESIUM (BEAKER) (test code = 2.0 mg/dL 1.6-2.6 627) CBC W/PLT COUNT & AUTO [id number] 05:44:00 Test Item Value Reference Range Interpretation [...] PERCENT (BEAKER) (test code = 2801) TROPONIN [id number] 01:50:00 Test Item Value Reference Range Interpretation [...] acute neurological disease, and persistent tachyarrhythmia.BASIC METABOLIC [id number] 22:36:00 Test Item Value Reference Range Interpretation [...] PATIEN TS. CREATINE KINASE (CK), TOTAL AND [id number] 21:46:00 Test Item Value Reference Range Interpretation [...] mechanical heart valves.RAD, CHEST, 1 VIEW, NON [id number] 20:22:00Reason for exam:->SOBShould this be performed at [...] MDReport Verified Date/Time: 05/24/2018 20:22:32 Reading Location: [address] Reading Room
[2022-04-28] MEDS ORDERED: METHYLPREDNISOLONE 125 MG INJ ONE (08:39)
[2022-04-28] MEDS ORDERED: ALBUTEROL 2.5 MG/3 ML NEB SOL ONE (08:40)
[2022-04-28] MEDS ORDERED: MAGNESIUM SULFATE 1 gm IVPB 1 GM/100 ML BAG IV ONE (08:40)
[2022-04-28] MEDS ORDERED: IPRATROPIUM BROM 0.5MG/2.5ML ONE (08:40)
[2022-04-28 09:13] LABS: Protime INR 0.85
[2022-04-28 09:14] LABS: Absolute Lymphocytes (CBC) 1.1 K/uL (0.7-4.9); MCV 92.1 fL (80-100); MPV 6.7 fL (7.6-11.3); RBC Red Blood Cell Count 4.56 M/uL (3.86-4.86)
[2022-04-28 09:26] LABS: ALT/SGPT 56 U/L (12-78); AST/SGOT 27 U/L (15-37); Albumin 3.3 g/dL (3.4-5.0); Alkaline Phosphatase 65 U/L (45-117); BUN Blood Urea Nitrogen 13 mg/dL (7-18); Bicarbonate 23 mmol/L (21-32); Bilirubin Total 0.2 mg/dL (0.2-1.0); Glomerular Filtration Rate 103 ml/min (=/>90); Glucose Level 161 mg/dL (74-106); Magnesium 2.2 mg/dL (1.8-2.4); NT PRO-BNP 28 pg/mL (<125); Potassium 4.5 mmol/L (3.5-5.1); Protein, Total 6.9 g/dL (6.4-8.2); Sodium Level 129 mmol/L (136-145); Troponin High Sensitivity 6.3 pg/mL (<58.9)
[2022-04-28 09:27] LABS: Bilirubin Direct < 0.1 mg/dL (0-0.2)
[2022-04-28 09:34] LABS: SARS-CoV-2 Antigen Rapid Res Negative (Negative)
--- NOTE | 2022-04-28 10:22 | RAD REPORT ---
EXAM DESCRIPTION: RAD - Chest Single View - 04/28/2022 9:06 am CLINICAL HISTORY: SOB Chest pain. COMPARISON: Chest Single View dated 04/17/2022; Chest Single View dated 03/12/2022; Chest Single View d ated 03/09/2022; Chest Single View dated 02/06/2021 FINDINGS: Portable technique limits examination quality. The lungs are grossly clear. The heart is normal in size. No displaced fractures. IMPRESSION: No acute intrathoracic process suspected.
--- NOTE | 2022-04-28 11:13 | ER ---
Nurse's Notes [facility] Name: Ansley Henderson Age: 61 yrs Sex: Female : 1960 Arrival Date: 04/28/2022 Time: 08:17 Bed 4 Private MD: Diagnosis: COPD/ Chronic obstructive pulmonary disease with (acute) exacerbation Presentation: 04/28 08:17 Chief complaint: EMS states: SHORTNESS OF BREATH AFTER DRINKING LAST NIGHT. Coronavirus bp screen: At this time, the client does not indicate any symptoms associated with coronavirus-19. Ebola Screen: No symptoms or risks identified at this time. Initial Sepsis Screen: Does the patient meet any 2 criteria? No. Patient's initial sepsis screen is negative. Does the patient have a suspected source of infection? No. Patient's initial sepsis screen is negative. Risk Assessment: Do you want to hurt yourself or someone else? Patient reports no desire to harm self or others. Onset of symptoms was April 28, 2022 at 06:00. Care prior to arrival: Medication(s) given: Albuterol Neb x 1, Atrovent Neb x 1. 08:17 Method Of Arrival: EMS: [facility] bp 08:17 Acuity: ENMNAUEL 3 bp Triage Assessment: 08:19 General: Appears distressed, Behavior is cooperative, appropriate for age, anxious. bp Pain: Denies pain. EENT: No deficits noted. Neuro: No deficits noted. Cardiovascular: Rhythm is sinus rhythm. Respiratory: Reports shortness of breath cough that is Onset: The symptoms/episode began/occurred this morning, the patient has moderate shortness of breath. GI: No signs and/or symptoms were reported involving the gastrointestinal system. : No signs and/or symptoms were reported regarding the genitourinary system. Derm: No deficits noted. Musculoskeletal: No deficits noted. Historical: - Allergies: 08: No Known Allergies; bp - Home Meds: 08: albuterol sulfate 90 mcg/actuation Inhl HFAA 1 puff every 4 hours [Active]; aspirin 81 bp mg Oral TbEC 1 tab once daily [Active]; lisinopril 20 mg Oral tab 1 tab once daily [Active]; prednisone 20 mg Oral tab 1 tab 2 times per day [Active]; ranitidine HCl 150 mg Oral tab 1 tab once daily [Active]; tiotropium bromide inhalation once daily [Active]; - PMHx: 08:19 CAD; COPD; CVA; GERD; HEART STENT; Hypertension; bp - Immunization history:: Adult Immunizations up to date. - Social history:: Smoking status: Patient reports the use of cigarette tobacco products, unknown amount. Screenin:21 Abuse screen: Denies threats or abuse. Denies injuries from another. Nutritional bp screening: No deficits noted. Tuberculosis screening: No symptoms or risk factors identified. Fall Risk None identified. Assessment: 08:20 General: SEE TRIAGE NOTE. Cardiovascular: Rhythm is sinus rhythm. Respiratory: Airway bp is patent Respiratory effort is labored, Breath sounds with wheezes bilaterally. 09:57 Reassessment: No changes from previously documented assessment. Patient and/or family bp updated on plan of care and expected duration. Pain level reassessed. 11:29 Reassessment: PT D/C HOME AMBULATORY WITH FAMILY. bp Vital Signs: 08:17 BP 136 / 78; Pulse 78; Resp 20; Temp 98; Pulse Ox 97% on 10% Nebulizer Mask; bp 09:57 BP 126 / 59; Pulse 92; Resp 20; Pulse Ox 98% ; bp 11:29 bp 11:29 PT REFUSED bp ED Course: 08:17 Patient arrived in ED. bp 08:19 Triage completed. bp 08:19 Luis Jeong PA is PHCP. jmm 08:19 Jonathan Marroquin DO is Attending Physician. jmm 08:20 Arm band placed on. bp 08:21 Patient has correct armband on for positive identification. Bed in low position. Call bp light in reach. Side rails up X2. 08:22 Attending Physician role handed off by Jonathan Marroquin DO amna 08:22 Gil Anderson MD is Attending Physician. amna 08:26 Rashid Haywood, MESHA is Primary Nurse. bp 08:45 Inserted saline lock: 22 gauge in right forearm, using aseptic technique. Blood bp collected. 08:56 EKG done, by ED staff. tm3 09:08 XRAY Chest (1 view) In Process Unspecified. EDMS 11:30 No provider procedures requiring assistance completed. IV discontinued, intact, bp bleeding controlled, No redness/swelling at site. Pressure dressing applied. Administered Medications: 08:45 Drug: DuoNeb (albuterol 2.5 mg, ipratropium 0.5 mg) (3:1) (2.5 mg - 0.5 mg) 3 ml Route: bp Nebulizer; 11:31 Follow up: Response: No adverse reaction bp 08:45 Drug: Magnesium Sulfate 1 grams Route: IVPB; Infused Over: 1 hrs; Site: right forearm; bp 11:31 Follow up: IV Status: Completed infusion; IV Intake: 100ml bp 08:45 Drug: SOLU-Medrol (methylPrednisoLONE) 125 mg Route: IVP; Site: right forearm; bp 11:31 Follow up: Response: No adverse reaction bp Medication: 11:29 VIS not applicable for this client. bp Intake: 11:31 IV: 100ml; Total: 100ml. bp Outcome: 11:13 Discharge ordered by . carline 11:30 Discharged to home ambulatory, with family. bp 11:30 Condition: stable 11:30 Discharge instructions given to patient, Instructed on discharge instructions, follow up and referral plans. medication usage, Demonstrated understanding of instructions, follow-up care, medications, Prescriptions given X 3. 11:32 Patient left the ED. bp Signatures: Dispatcher [employer] EDMS Slade Chao tm3 Gil Anderson MD MD cha Mickail, Joel, PA PA Rashid Morse, RN RN bp
--- NOTE | 2022-04-28 11:13 | EDPHYS ---
Physician Documentation [facility] Name: Ansley Henderson Age: 61 yrs Sex: Female : 1960 Arrival Date: 04/28/2022 Time: 08:17 Bed 4 Private MD: ED Physician Gil Anderson HPI: 04/28 08:27 This 61 yrs old Female presents to ER via EMS with complaints of Shortness Of Breath. jmm 08:27 The patient has shortness of breath at rest. Onset: The symptoms/episode began/occurred jmm gradually, last night. Duration: The symptoms are continuous, and are steadily getting worse. The patient's shortness of breath is aggravated by nothing, is alleviated by nothing. Associated signs and symptoms: Pertinent positives: chest pain, non-productive cough. This is a 61 year old female with a history of copd, cva, cad, that presents to the ED with complaints of shortness of breath, wheezing which she states is consistent with her copd. Patient states being released from the hospital 2 days ago. . Historical: - Allergies: 08:19 No Known Allergies; bp - Home Meds: 08:19 albuterol sulfate 90 mcg/actuation Inhl HFAA 1 puff every 4 hours [Active]; aspirin 81 bp mg Oral TbEC 1 tab once daily [Active]; lisinopril 20 mg Oral tab 1 tab once daily [Active]; prednisone 20 mg Oral tab 1 tab 2 times per day [Active]; ranitidine HCl 150 mg Oral tab 1 tab once daily [Active]; tiotropium bromide inhalation once daily [Active]; - PMHx: 08:19 CAD; COPD; CVA; GERD; HEART STENT; Hypertension; bp - Immunization history:: Adult Immunizations up to date. - Social history:: Smoking status: Patient reports the use of cigarette tobacco products, unknown amount. ROS: 08:27 Constitutional: Positive for body aches. jmm 08:27 Cardiovascular: Positive for chest pain, with cough. 08:27 Respiratory: Positive for cough, shortness of breath, wheezing. 08:27 All other systems are negative. Exam: 08:27 Constitutional: This is a well developed, well nourished patient who is awake, alert, jmm and in no acute distress. Head/Face: atraumatic. Eyes: EOMI, no conjunctival erythema appreciated ENT: Moist Mucus Membranes Neck: Trachea midline, Supple Chest/axilla: Normal chest wall appearance and motion. Cardiovascular: Regular rate and rhythm. No edema appreciated 08:27 Back: Normal ROM Skin: General appearance color normal MS/ Extremity: Moves all extremities, no obvious deformities appreciated, no edema noted to the lower extremities Neuro: Awake and alert Psych: Behavior is normal, Mood is normal, Patient is cooperative and pleasant 08:27 Respiratory: moderate respiratory distress is noted, Respirations: accessory muscle usage, that is moderate, Breath sounds: decreased breath sounds, that are moderate, are located in both bases. Vital Signs: 08:17 BP 136 / 78; Pulse 78; Resp 20; Temp 98; Pulse Ox 97% on 10% Nebulizer Mask; bp 09:57 BP 126 / 59; Pulse 92; Resp 20; Pulse Ox 98% ; bp 11:29 bp 11:29 PT REFUSED bp MDM: 08:23 Patient medically screened. amna 11:13 Data reviewed: vital signs, nurses notes. Counseling: I had a detailed discussion with [facility] the patient and/or guardian regarding: the historical points, exam findings, and any diagnostic results supporting the discharge/admit diagnosis, lab results, radiology results, the need for outpatient follow up, to return to the emergency department if symptoms worsen or persist or if there are any questions or concerns that arise at home. 12:13 Refusal of service: The patient/guardian displays adequate decision making capability [facility] and despite a detailed discussion of alternatives, benefits, risks, and consequences refuses: Admission to the hospital for further work-up and treatment. 04/28 08:24 Order name: Basic Metabolic Panel; Complete Time: [facility] 04/28 08:24 Order name: CBC with Diff; Complete Time: 09:24 [facility] 04/28 08:24 Order name: LFT's; Complete Time: : [facility] 04/28 08:24 Order name: Magnesium; Complete Time: [facility] 04/28 08:24 Order name: NT PRO-BNP; Complete Time: [facility] 04/28 08:24 Order name: PT-INR; Complete Time: 09:15 [facility] 04/28 08:24 Order name: Troponin HS; Complete Time: [facility] 04/28 08:24 Order name: XRAY Chest (1 view); Complete Time: 10:38 [facility] 04/28 08:24 Order name: EKG; Complete Time: 08:26 [facility] 04/28 08:25 Order name: SARS RAPID; Complete Time: 09:35 [facility] 04/28 09:25 Order name: ETOH Level; Complete Time: 11:14 [facility] 04/28 08:24 Order name: Cardiac monitoring; Complete Time: 09:01 [facility] 04/28 08:24 Order name: EKG - Nurse/Tech; Complete Time: 09:01 [facility] 04/28 08:24 Order name: IV Saline Lock; Complete Time: 09:01 [facility] 04/28 08:24 Order name: Labs collected and sent; Complete Time: 09:01 [facility] 04/28 08:24 Order name: O2 Per Protocol; Complete Time: 08:27 [facility] 04/28 08:24 Order name: O2 Sat Monitoring; Complete Time: 08:27 [facility] Administered Medications: 08:45 Drug: DuoNeb (albuterol 2.5 mg, ipratropium 0.5 mg) (3:1) (2.5 mg - 0.5 mg) 3 ml Route: bp Nebulizer; 11:31 Follow up: Response: No adverse reaction bp 08:45 Drug: Magnesium Sulfate 1 grams Route: IVPB; Infused Over: 1 hrs; Site: right forearm; bp 11:31 Follow up: IV Status: Completed infusion; IV Intake: 100ml bp 08:45 Drug: SOLU-Medrol (methylPrednisoLONE) 125 mg Route: IVP; Site: right forearm; bp 11:31 Follow up: Response: No adverse reaction bp Disposition Summary: 04/28/22 11:13 Discharge Ordered Location: Home [facility] Condition: Stable [facility] Diagnosis - COPD/ Chronic obstructive pulmonary disease with (acute) exacerbation [facility] Followup: [facility] - With: Private Physician - When: Tomorrow - Reason: Recheck today's complaints, Continuance of care, Re-evaluation by your physician Discharge Instructions: - Discharge Summary Sheet [facility] - Chronic Obstructive Pulmonary Disease Exacerbation [facility] Forms: - Medication Reconciliation Form [facility] - Thank You Letter [facility] - Antibiotic Education [facility] - Prescription Opioid Use [facility] Prescriptions: - albuterol sulfate 90 mcg/actuation Inhalation HFA aerosol inhaler - inhale 2 puff by INHALATION route every 4 hours; 1 Pump; Refills: 0, Product [facility] Selection Permitted - Prednisone 20 mg Oral Tablet - take 3 tablets by ORAL route once daily for 5 days; 15 tablet; Refills: 0, [facility] Product Selection Permitted - Zithromax Z-Mickey 250 mg Oral Tablet - take 1 tablet by ORAL route as directed for 5 days Day 1 - take two (2) tablets m one time. Day 2, 3, 4 , 5 take one (1) tablet once daily.; 6 tablet; Refills: 0, Product Selection Permitted Signatures: Dispatcher [employer] Gil Hwang MD MD cha Mickail, Joel, PA PA jmm Peltier, Brian, RN RN bp
[2022-04-28 12:27] VITALS: TEMP 98
[2022-04-28 12:36] VITALS: BP 126/59; O2SAT 98
--- NOTE | 2022-04-30 08:20 | EKG ---
Test Date: 2022-04-28 Test Time: 08:54:31 Correctional Supervisor Lieutenant: TM MEASUREMENT RESULTS: Intervals: Rate: 80 W[place]: 144 QRSD: 78 QT: 352 QTc: 405 [place]: P: 58 W[place]: 144 QRS: 43 T: 77 INTERPRETIVE STATEMENTS: Normal sinus rhythm Normal ECG Compared to ECG 04/17/2022 03:50:58 No significant changes Electronically Signed On 04-30-22 08:11:59 CDT by Yosvany Vizcarra
--- NOTE | 2022-04-30 08:20 | EKG ---
Test Date: 2022-04-28 Test Time: 08:55:40 Dry Room Attendant: TM MEASUREMENT RESULTS: Intervals: Rate: 85 [place]: 140 QRSD: 84 QT: 350 QTc: 416 [place]: P: 58 [place]: 140 QRS: 46 T: 68 INTERPRETIVE STATEMENTS: Normal sinus rhythm Normal ECG Compared to ECG 04/28/2022 08:54:31 No significant changes Electronically Signed On 04-30-22 08:11:58 CDT by Yosvany Vizcarra
== END 2022-04-28 11:32 | disposition home or self-care (01) ==
LOC: ER 08:15
DX: J44.1 Chronic obstructive pulmonary disease with (acute) exacerbation (principal); F17.210 Nicotine dependence, cigarettes, uncomplicated; I10 Essential (primary) hypertension; Z20.822 Contact with and (suspected) exposure to COVID-19; Z79.82 Long term (current) use of aspirin; Z95.5 Presence of coronary angioplasty implant and graft
CPT/HCPCS: 96365; 93005 ×2; 85025; 80048; 36415; 80320; 83735; 85610; 80076; 84484; 83880; 71045; 94640; 96375; 99285; 96366; 87811; J3475; J2930

== ENCOUNTER 2022-07-19 01:52 | Inpatient (IN) | payer OTHER ==
--- OUTSIDE RECORDS SUMMARY | 2022-07-19 01:57 | XMS REPORT | Continuity of Care Document ---
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 neurological disease, and persistent tachyarrhythmia.CALCIUM, [id number] 06:13:00 Test Item Value Reference Range Interpretation Comments CALCIUM IONIZED (BEAKER) (test 1.17 mmol/L 1.12-1.27 code = 698) PH, BLOOD (BEAKER) (test code = 7.33 1810) [id number] 06:05:00 Test Item Value Reference Range Interpretation Comments PHOSPHORUS (BEAKER) (test code = 4.1 mg/dL 2.3-4.7 604) [id number] 06:05:00 Test Item Value Reference Range Interpretation Comments MAGNESIUM (BEAKER) (test code = 2.0 mg/dL 1.6-2.6 627) CBC W/PLT COUNT & AUTO [id number] 05:44:00 Test Item Value Reference Range Interpretation [...] PERCENT (BEAKER) (test code = 2801) TROPONIN [id number] 01:50:00 Test Item Value Reference Range Interpretation [...] acute neurological disease, and persistent tachyarrhythmia.BASIC METABOLIC [id number] 22:36:00 Test Item Value Reference Range Interpretation [...] PATIEN TS. CREATINE KINASE (CK), TOTAL AND [id number] 21:46:00 Test Item Value Reference Range Interpretation [...] mechanical heart valves.RAD, CHEST, 1 VIEW, NON [id number] 20:22:00Reason for exam:->SOBShould this be performed at [...] MDReport Verified Date/Time: 05/24/2018 20:22:32 Reading Location: [address] Reading Room
[2022-07-19] MEDS ORDERED: ALBUTEROL 2.5 MG/3 ML NEB SOL ONE (02:06)
[2022-07-19] MEDS ORDERED: IPRATROPIUM BROM 0.5MG/2.5ML ONE (02:07)
[2022-07-19 02:21] LABS: Absolute Lymphocytes (CBC) 1.3 K/uL (0.7-4.9); Hematocrit 40.6 % (36.0-45.0); Lymphocytes % 18.9 % (15.3-44.8); RBC Red Blood Cell Count 4.41 M/uL (3.86-4.86)
[2022-07-19 02:36] LABS: ALT/SGPT 41 U/L (12-78); AST/SGOT 37 U/L (15-37); Albumin 3.1 g/dL (3.4-5.0); Alkaline Phosphatase 88 U/L (45-117); BUN Blood Urea Nitrogen 4 mg/dL (7-18); Bicarbonate 26 mmol/L (21-32); Bilirubin Direct < 0.1 mg/dL (0-0.2); Bilirubin Total 0.2 mg/dL (0.2-1.0); Glomerular Filtration Rate 106 ml/min (=/>90); Glucose Level 139 mg/dL (74-106); Lipase 108 U/L (73-393); Potassium 4.7 mmol/L (3.5-5.1); Protein, Total 6.7 g/dL (6.4-8.2); Sodium Level 120 mmol/L (136-145)
--- NOTE | 2022-07-19 04:10 | EDPHYS ---
Physician Documentation [facility] Name: Ansley Henderson Age: 61 yrs Sex: Female : 1960 Arrival Date: 07/19/2022 Time: 01:55 Bed 5 Private MD: ED Physician Nolan Rebollar HPI: 07/19 02:03 This 61 yrs old Female presents to ER via Unassigned with complaints of bs3 wrist, chest, head pain. 02:03 This is a 61-year-old female history of alcohol abuse, COPD, hypertension, CAD who bs3 presents status post fall complaining of head pain chest pain and wrist pain she notes that she was going to the bathroom and tripped and fell she did not have any lightheadedness or dizziness before the fall she was ambulatory after the incident no numbness tingling or weakness she does feel slightly short of breath she also notes a history of a right humerus fracture which they cannot do surgery on and it is always in a splint. Historical: - Allergies: 02:02 No Known Allergies; vc1 - Home Meds: 02:02 albuterol sulfate 90 mcg/actuation Inhl HFAA 1 puff every 4 hours [Active]; aspirin 81 vc1 mg Oral TbEC 1 tab once daily [Active]; prednisone 20 mg Oral tab 1 tab 2 times per day [Active]; Thiamine Oral [Active]; tramadol 50 mg Oral tab 1 tab twice a day [Active]; omeprazole 40 mg oral cpDR 1 cap once daily [Active]; ProAir HFA 90 mcg/actuation inhalation HFAA [Active]; - PMHx: 02:02 CAD; COPD; CVA; GERD; HEART STENT; Hypertension; Alcoholism; vc1 - Immunization history:: Client reports having NOT received the Covid vaccine. - Social history:: Smoking status: Patient denies any tobacco usage or history of. Patient uses alcohol, on a daily basis. ROS: 02:03 Constitutional: Negative for fever, chills Neck: Negative for injury, pain, and bs3 swelling, Cardiovascular: Negative for chest pain, palpitations, and edema, Abdomen/GI: Negative for abdominal pain, nausea, vomiting, diarrhea Neuro: Negative for headache, weakness, numbness, tingling, and seizure, Psych: Negative for depression, anxiety, suicide ideation, homicidal ideation, and hallucinations. 02:03 All other systems are negative. Exam: 02:03 Constitutional: This is a well developed, well nourished patient who is awake, alert, bs3 and in no acute distress. Head/Face: periorbital ecchymosis on right, PERRL, FROM of right eye muscles, pain to palpation over right orbit, no loose teeth. Eyes: Pupils equal round and reactive to light, extra-ocular motions intact. Lids and lashes normal. ENT: mmm, no posterior phyarngeal erythema Neck: Trachea midline, no thyromegaly, no neck stiffness Chest/axilla: right chest wall tenderness, no ecchymosis or bruising, anteriology on upper chest Cardiovascular: Regular rate and rhythm with a normal S1 and S2. symmetric pulses in upper extremities Respiratory: diffuse wheezing b/l, no hypoxia, mild inc wob Abdomen/GI: Soft, non-tender, no rebound or guarding Back: No spinal tenderness. No costovertebral tenderness. Full range of motion. Skin: Warm, dry with normal turgor. Normal color with no rashes, no lesions, and no evidence of cellulitis. MS/ Extremity: Pulses equal, no cyanosis. Neurovascular intact. Full, normal range of motion., hematoma to dorsum of right wrist, no scaphoid tenderness, pain to palpation over right right, pain with rom. normal sensation in first, 3rd and fifth digits. Neuro: Awake and alert, GCS 15, oriented to person, place, time, and situation. Cranial nerves II-XII grossly intact. Motor strength 5/5 in all extremities. Sensory grossly intact. Psych: Awake, alert, with orientation to person, place and time. Behavior, mood, and affect are within normal limits. Vital Signs: 02:01 BP 139 / 74; Pulse 87; Resp 15; Temp 97.5(O); Pulse Ox 99% on NC; Weight 68.04 kg; vc1 Height 5 ft. 1 in. (154.94 cm); Pain 10/10; 04:19 BP 128 / 57; Pulse 90; Resp 15 S; Pulse Ox 93% on R/A; as6 04:41 BP 125 / 54; Pulse 98; Resp 15; Pulse Ox 97% on R/A; vc1 05:20 BP 139 / 63; Pulse 79; Resp 14; Pulse Ox 92% on R/A; vc1 02:01 Body Mass Index 28.34 (68.04 kg, 154.94 cm) vc1 MDM: 01:58 Patient medically screened. bs3 02:07 Data interpreted: nurse monitoring:. ED course: ecg nsr [address] elevation or depression bs3 qtc 418. Patient with multiple injuries status post slip and fall in the setting of alcohol use, will rule out distal radius fracture will rule out rib fractures will rule out intracranial hemorrhage and orbital fracture given her alcohol use will rule out C-spine fracture will give DuoNeb given her diffuse wheezing although I suspect this is chronic we will reassess. 02:37 ED course: xr consistent with not sig displaced fx, will place in sugartong.. bs3 03:58 ED course: ct head/neck neg for acute pathology, labs notable for elevated etoh. bs3 04:05 ED course: pt found to be hyponatremia, likely beer potomania. will admit. will place bs3 on CIWA. 04:09 Data reviewed: vital signs, nurses notes. bs3 07/19 02:01 Order name: Basic Metabolic Panel; Complete Time: 03:58 bs3 07/19 02:01 Order name: CBC with Diff; Complete Time: 02:32 bs3 07/19 02:01 Order name: ETOH Level; Complete Time: 03:58 bs3 07/19 02:01 Order name: Hepatic Function; Complete Time: 03:58 bs3 07/19 02:01 Order name: Lipase; Complete Time: 03:58 bs3 07/19 02:01 Order name: Type And Screen; Complete Time: 03:58 bs3 07/19 02:01 Order name: CT Head C Spine bs3 07/19 02:01 Order name: CT Chest Wo Con bs3 07/19 02:01 Order name: Wrist Right 3 View XRAY bs3 07/19 02:33 Interpretation: Abnormal: non-displaced fx. bs3 07/19 04:12 Order name: SARS RAPID; Complete Time: 04:43 as6 07/19 02:01 Order name: EKG; Complete Time: 02:01 bs3 07/19 02:01 Order name: EKG - Nurse/Tech; Complete Time: 02:04 bs3 07/19 02:01 Order name: IV Saline Lock; Complete Time: 02:04 bs3 07/19 02:01 Order name: Labs collected and sent; Complete Time: 02:10 bs3 07/19 02:01 Order name: NPO; Complete Time: 02:04 bs3 07/19 02:01 Order name: O2 Per Protocol; Complete Time: 02:04 bs3 07/19 02:01 Order name: O2 Sat Monitoring; Complete Time: 02:04 bs3 Administered Medications: 02:10 Drug: DuoNeb (albuterol 2.5 mg, ipratropium 0.5 mg) (3:1) (2.5 mg - 0.5 mg) 3 ml Route: vc1 Nebulizer; 05:38 Follow up: Response: No adverse reaction as6 04:38 Drug: NS 0.9% 500 ml Route: IV; Rate: bolus; Site: left antecubital; as6 05:39 Follow up: Response: No adverse reaction; IV Status: Completed infusion; IV Intake: as6 500ml 04:38 Drug: Thiamine 100 mg Route: IV; Rate: 1 bolus; Site: left antecubital; as6 05:39 Follow up: Response: No adverse reaction; IV Status: Completed infusion; IV Intake: [id number] 04:38 Drug: foLIC Acid 1 mg Route: PO; as6 05:39 Follow up: Response: No adverse reaction as6 Disposition Summary: 07/19/22 04:09 Hospitalization Ordered Hospitalization Status: Inpatient Admission bs3 Provider: Jacinda Markham [facility] bs3 Condition: Guarded bs3 Problem: new bs3 Symptoms: have worsened bs3 Bed/Room Type: Standard bs3 Room Assignment: 201(07/19/22 05:06) Diagnosis - Hypo-osmolality and hyponatremia bs3 - Colles' fracture of right radius bs3 Forms: - Medication Reconciliation Form bs3 - SBAR form bs3 Signatures: Dispatcher [employer] Edwige Arshad RN RN mw Gautam Haddad RN RN as6 Shauna Simpson RN RN vc1 Nolan Rebollar MD MD bs3 Minerva Perry PA-C PABenton sb4 Corrections: (The following items were deleted from the chart) 05:06 04:09 bs3 mw
--- NOTE | 2022-07-19 04:10 | ER ---
Nurse's Notes [facility] Name: Ansley Henderson Age: 61 yrs Sex: Female : 1960 Arrival Date: 07/19/2022 Time: 01:55 Bed 5 Private MD: Diagnosis: Hypo-osmolality and hyponatremia;Colles' fracture of right radius Presentation: 07/19 02:04 Coronavirus screen: Vaccine status: Patient reports being unvaccinated. Client denies vc1 travel out of the [place] in the last 14 days. At this time, the client does not indicate any symptoms associated with coronavirus-19. Ebola Screen: No symptoms or risks identified at this time. Initial Sepsis Screen: Does the patient meet any 2 criteria? No. Patient's initial sepsis screen is negative. Does the patient have a suspected source of infection? No. Patient's initial sepsis screen is negative. Risk Assessment: Do you want to hurt yourself or someone else? Patient reports no desire to harm self or others. Onset of symptoms was July 19, 2022. 02:04 Acuity: ENMANUEL 2 vc1 02:04 Method Of Arrival: EMS: [facility] vc1 02:04 Chief complaint: Patient states: "I got drunk and fell". vc1 Triage Assessment: 02:17 General: Appears in no apparent distress. Behavior is cooperative, Smells of alcohol. vc1 Pain: Complains of pain in right side of forehead and dorsal aspect of right wrist Pain does not radiate. Pain currently is 10 out of 10 on a pain scale. EENT: No deficits noted. Neuro: Level of Consciousness is obeys commands, Oriented to person, place, time, situation. Cardiovascular: No deficits noted. Respiratory: Airway is patent Respiratory effort is even, unlabored, Respiratory pattern is regular, symmetrical. GI: No deficits noted. : No deficits noted. Derm: Bruising that is bright red, on right side of forehead and dorsal aspect of right wrist. Musculoskeletal: Bony deformity noted of dorsal aspect of right wrist Swelling present in right side of forehead and dorsal aspect of right wrist. Historical: - Allergies: 02:02 No Known Allergies; vc1 - Home Meds: 02:02 albuterol sulfate 90 mcg/actuation Inhl HFAA 1 puff every 4 hours [Active]; aspirin 81 vc1 mg Oral TbEC 1 tab once daily [Active]; prednisone 20 mg Oral tab 1 tab 2 times per day [Active]; Thiamine Oral [Active]; tramadol 50 mg Oral tab 1 tab twice a day [Active]; omeprazole 40 mg oral cpDR 1 cap once daily [Active]; ProAir HFA 90 mcg/actuation inhalation HFAA [Active]; - PMHx: 02:02 CAD; COPD; CVA; GERD; HEART STENT; Hypertension; Alcoholism; vc1 - Immunization history:: Client reports having NOT received the Covid vaccine. - Social history:: Smoking status: Patient denies any tobacco usage or history of. Patient uses alcohol, on a daily basis. Screenin:13 Abuse screen: Denies threats or abuse. Denies injuries from another. Nutritional as6 screening: No deficits noted. Tuberculosis screening: No symptoms or risk factors identified. Fall Risk Fall in past 12 months (25 points). IV access (20 points). Total Lazar Fall Scale indicates High Risk Score (45 or more points). Fall prevention measures have been instituted. Side Rails Up X 2. Assessment: 04:11 Reassessment: No changes from previously documented assessment. Patient and/or family as6 updated on plan of care and expected duration. Pain level reassessed. Vital Signs: 02:01 BP 139 / 74; Pulse 87; Resp 15; Temp 97.5(O); Pulse Ox 99% on NC; Weight 68.04 kg; vc1 Height 5 ft. 1 in. (154.94 cm); Pain 10/10; 04:19 BP 128 / 57; Pulse 90; Resp 15 S; Pulse Ox 93% on R/A; as6 04:41 BP 125 / 54; Pulse 98; Resp 15; Pulse Ox 97% on R/A; vc1 05:20 BP 139 / 63; Pulse 79; Resp 14; Pulse Ox 92% on R/A; vc1 02:01 Body Mass Index 28.34 (68.04 kg, 154.94 cm) vc1 ED Course: 01:55 Patient arrived in ED. vc1 01:58 Nolan Rebollar MD is Attending Physician. bs3 02:01 Shauna Simpson RN is Primary Nurse. vc1 02:04 Triage completed. vc1 02:05 Maintain EMS IV. Dressing intact. Good blood return noted. Site clean \\T\\ dry. Gauge \\T\\ as 6 site: 20g left ac. 02:12 Basic Metabolic Panel Sent. as6 02:12 CBC with Diff Sent. as6 02:12 ETOH Level Sent. as6 02:12 Hepatic Function Sent. as6 02:12 Lipase Sent. as6 02:12 Type And Screen Sent. as6 02:13 Bed in low position. Call light in reach. Side rails up X2. Client placed on continuous as6 cardiac and pulse oximetry monitoring. NIBP monitoring applied. 02:13 Arm band placed on. as6 02:19 Wrist Right 3 View XRAY In Process Unspecified. EDMS 02:52 CT Head C Spine In Process Unspecified. EDMS 02:52 CT Chest Wo Con In Process Unspecified. EDMS 04:07 Jacinda [place] MD is Hospitalizing Provider. bs3 04:19 SARS RAPID Sent. as6 05:26 Patient admitted, IV remains in place. as6 05:40 No provider procedures requiring assistance completed. Orthoglass splint: Sugar tong as6 splint applied on right arm. Administered Medications: 02:10 Drug: DuoNeb (albuterol 2.5 mg, ipratropium 0.5 mg) (3:1) (2.5 mg - 0.5 mg) 3 ml Route: vc1 Nebulizer; 05:38 Follow up: Response: No adverse reaction as6 04:38 Drug: NS 0.9% 500 ml Route: IV; Rate: bolus; Site: left antecubital; as6 05:39 Follow up: Response: No adverse reaction; IV Status: Completed infusion; IV Intake: as6 500ml 04:38 Drug: Thiamine 100 mg Route: IV; Rate: 1 bolus; Site: left antecubital; as6 05:39 Follow up: Response: No adverse reaction; IV Status: Completed infusion; IV Intake: [id number] 04:38 Drug: foLIC Acid 1 mg Route: PO; as6 05:39 Follow up: Response: No adverse reaction as6 Medication: 04:42 VIS not applicable for this client. vc1 Intake: 05:39 IV: 500ml; Total: 500ml. as6 05:39 IV: 10ml; Total: 510ml. as6 Outcome: 04:09 Decision to Hospitalize by Provider. bs3 05:25 Admitted to Med/surg accompanied by tech, via wheelchair, room 201, with chart, Report as6 called to susie ZIMMER 05:25 Condition: stable 05:25 Instructed on the need for admit. 06:02 Patient left the ED. as6 Signatures: Dispatcher [employer] Gautam Kruger RN RN as6 Shauna Simpson RN RN vc1 Nolan Rebollar MD MD bs3
[2022-07-19] MEDS ORDERED: THIAMINE 200 MG/2 ML INJ ONE (04:34)
[2022-07-19] MEDS ORDERED: FOLIC ACID 1 MG TABLET ONE (04:34)
[2022-07-19] MEDS ORDERED: NA CHLORIDE 0.9% 500 ML ONE (04:34)
[2022-07-19 04:35] LABS: SARS-CoV-2 Antigen Rapid Res Negative (Negative)
--- NOTE | 2022-07-19 04:52 | P.HP ---
Certification for Inpatient Patient admitted to: Inpatient With expected LOS: <2 Midnights Patient will require the following post-hospital care: None Practitioner: I am a practitioner with admitting privileges, knowledge of patient current condition, hospital course, and medical plan of care. Services: Services provided to patient in accordance with Admission requirements found in Title 42 Section 412.3 of the Code of Federal Regulations Patient History Date of Service: 07/19/22 Reason for admission: Hyponatremia History of Present Illness: Patient is a 61-year-old female with history of COPD on chronic home oxygen, CVA, GERD, hypertension, CAD, and alcohol abuse who presented to the ED s/p fall. She had been drinking tonight, slipped and fell. She landed on her right wrist and also hit her head. She did not lose consciousness nor is she on blood thinners. Her head CT was negative. Chest xray showed emphysema. Xray showed right distal radius fracture. Labs significant for sodium 120, chloride 85,serum alcohol 430. Patient reports she had 6 beers tonight but she typically drinks 4 beers/night. She was given 500 mL NS, breathing treatment, thiamine, and folic acid in ED. Patient is admitted for further management. Allergies No Known Allergies Allergy (Verified 08/16/18 01:17) Home medications list reviewed: Yes Home Medications: Aspirin [Adult Aspirin] 81 mg PO DAILY 07/31/18 Albuterol Sulfate [Proair Hfa] 1 puff IH Q3H PRN 08/16/18 Acetaminophen [Acetaminophen Extra Strength] 2 tab PO BID PRN 03/09/22 Cyanocobalamin (Vitamin B-12) [Vitamin B-12] 1 tab PO DAILY 03/09/22 Omeprazole Magnesium [Prilosec Otc] 20 mg PO DAILY 03/09/22 Tiotropium Br/Olodaterol HCl [Stiolto Respimat Inhal [facility]] 2 puff IH DAILY 03/09/22 Amlodipine [Norvasc*] 5 mg PO DAILY #30 tab 03/12/22 Azithromycin Tab [Zithromax*] 250 mg PO DAILY #5 tab 03/12/22 Ipratropium/Albuterol Sulfate [Iprat-Albut 0.5-3(2.5) mg/3 ml] 3 ml IH Q6HP PRN #60 ampul.neb 03/12/22 Nebulizer Accessories [Aeroneb Go] 1 each MC DAILY #1 each 03/12/22 Nebulizer [Aeroneb Go Nebulizer] 1 each MC DAILY #1 each 03/12/22 lisinopriL [Prinivil*] 10 mg PO DAILY #30 tab 03/12/22 predniSONE [Prednisone] 10 mg PO BID 04/17/22 traMADol HCL [Ultram*] 1 tab PO Q12H 04/17/22 - Past Medical/Surgical History Diabetic: No -: Hypertension -: Coronary artery disease, stent -: COPD on home oxygen and chronic steroids -: hx Tobacco abuse -: GERD -: Gastric ulcers -: Alcohol abuse -: -: Stent placement Psychosocial/ Personal History: The patient is . She has 5 children. - Family History Mother -: Heart disease, Cancer - Social History Smoking Status: Former smoker Alcohol use: Yes CD- Drugs: Yes Caffeine use: Yes Place of Residence: Home Review of Systems Cardiovascular: Chest Pain Musculoskeletal: Arm Pain Physical Examination - Physical Exam General: Alert, In no apparent distress HEENT: PERRLA, Other (ecchymosis noted to right eye), EOMI, Sclerae nonicteric Neck: Supple, 2+ carotid pulse no bruit, No LAD, Without JVD or thyroid abnormality Respiratory: Clear to auscultation bilaterally, Normal air movement Cardiovascular: Regular rate/rhythm, Normal S1 S2 Gastrointestinal: Normal bowel sounds, No tenderness Musculoskeletal: No tenderness Integumentary: No rashes Neurological: Normal gait, Normal speech, Normal strength at 5/5 x4 extr, Normal tone, Normal affect - Studies Laboratory Data (last 24 hrs) 07/19/22 02:09: WBC 7.00, Hgb 13.4, Hct 40.6, Plt Count 231 07/19/22 02:09: Sodium 120 L, Potassium 4.7, BUN 4 L, Creatinine 0.49 L, Glucose 139 H, Total Bilirubin 0.2, AST 37, ALT 41, Alkaline Phosphatase 88, Lipase 108 Assessment and Plan - Problems (Diagnosis) (1) Hyponatremia Current Visit: Yes Status: Acute (2) Alcohol abuse Current Visit: Yes Status: Chronic (3) COPD (chronic obstructive pulmonary disease) Current Visit: Yes Status: Acute Qualifiers: COPD type: emphysema Emphysema type: unspecified Qualified Code(s): J43.9 - Emphysema, unspecified (4) Coronary artery disease Current Visit: Yes Status: Chronic Qualifiers: Coronary Disease-Associated Artery/Lesion type: [place] artery [place] vs. transplanted heart: [place] heart Associated angina: without angina Qualified Code(s): I25.10 - Atherosclerotic heart disease of [place] coronary artery with out angina pectoris (5) Hypertension Current Visit: Yes Status: Chronic Qualifiers: Hypertension type: primary hypertension Qualified Code(s): I10 - Essential (primary) hypertension - Plan Hyponatremia likely secondary to beer potomania. Serum osmolality, urine osmolality, urine sodium pending Patient reports drinking 4 beers/night although she likely consumes more given her serum etoh level. CIWA protocol if necessary Patient has home O2, 3L, but reports she only uses it after exertion. Breathing treatments PRN Continue NS @ 100 for now and adjust based on repeat BMP. BMP ordered q6h Outpatient ortho follow up for distal radius fracture. Patient has previous nonoperative right humerus fracture requiring splint as well. Urine pending- urinalysis and UDS Monitor and replete electrolytes per protocol Reconcile and continue home medications Lovenox for VTE prophylaxis Full code Discharge Plan: Home Plan to discharge in: 48 Hours - Advance Directives Does patient have a Living Will: No Does patient have a Durable POA for Healthcare: No - Code Status/Comfort Care Code Status Assessed: Yes (Full) Critical Care: No Time Spent Managing Pts Care (In Minutes): 50
[2022-07-19] MEDS ORDERED: ONDANSETRON 4 MG/2 ML VIAL IV PRN (05:27)
[2022-07-19 06:25] VITALS: BMI 25.6
[2022-07-19 07:08] LABS: Magnesium 1.8 mg/dL (1.8-2.4); Phosphorus 2.8 mg/dL (2.5-4.9)
[2022-07-19] MEDS ORDERED: ALBUTEROL 2.5 MG/3 ML NEB SOL NEB PRN (08:00)
[2022-07-19] MEDS: ENOXAPARIN 40 MG/0.4 ML SQ SCH (08:17)
[2022-07-19] MEDS: NA CHLORIDE 0.9% 1,000 ML IV SCH ×3 (08:20→17:49)
[2022-07-19] MEDS ORDERED: MAGNESIUM SULFATE 1 gm IVPB 1 GM/100 ML BAG IV ONE (09:00)
[2022-07-19] MEDS: ACETAMINOPHEN 500 MG TAB PO PRN ×3 (11:32→21:13)
--- NOTE | 2022-07-19 12:07 | P.PN ---
Date of Service: 07/19/22 Patient seen and examined. She is awake and alert. She states she has been ambulating to and from bathroom without issues since hospitalization. Repeat sodium level is up to 127. Diagnosis; Hyponatremia secondary to beer potomania. Chronic alcoholism with alcohol intoxication Fall secondary to alcohol intoxication. Right radial Colles' fracture. Right periorbital bruise. Plan: Continue IV normal saline and monitor BMP closely. Pain management as needed. PT evaluation Right upper extremity immobilized
[2022-07-19 12:37] LABS: Potassium 4.1 mmol/L (3.5-5.1)
--- NOTE | 2022-07-19 15:19 | RAD REPORT ---
EXAM DESCRIPTION: CT - Thorax Javon Brito - 07/19/2022 2:49 am CLINICAL HISTORY: The patient is 61 years old and is Female; pain around chest sp fall TECHNIQUE: Axial computed tomography images of the chest without intravenous contrast. Sagittal an d coronal reformatted images were created and reviewed. This CT exam was performed using one or mor e of the following dose reduction techniques: automated exposure control, adjustment of the mA and/ or kV according to patient size, and/or use of iterative reconstruction technique. COMPARISON: No relevant prior studies available. FINDINGS: Lungs: Mild centrilobular emphysema. No pulmonary consolidation or groundglass opacities to suggest pneumonia. Pleural space: No pleural effusion or pneumothorax. Heart: Coronary artery calcifications. No significant pericardial effusion. Mediastinum: No pneumomediastinum. Bones/joints: No acute sternal fracture. No sternoclavicular joint dislocation. Mild kyphoscoliosis. T8 and T4 compression fractures, old/chronic in appearance. No retropuls ion. No acute rib fracture visualized. 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 Soft tissues: Unremarkable. Vasculature: Unremarkable. No thoracic aortic aneurysm. Lymph nodes: No pathologically enlarged lymph nodes. IMPRESSION: 1. No acute thoracic injury identified. 2. Mild centrilobular emphysema. Electronically signed by: Sadia Hinojosa MD 07/19/2022 3:18 AM CDT Due to temporary technical issues with the PACS/Fluency reporting system, reports are being signed by the in house radiologists without review as a courtesy to insure prompt reporting. The interpreting radiologist is fully responsible for the content of the report.
--- NOTE | 2022-07-19 15:24 | RAD REPORT ---
EXAM DESCRIPTION: CT - Head C Spine Mpr Wo Con - 07/19/2022 2:49 am CLINICAL HISTORY: Trauma TECHNIQUE: Axial computed tomography images of the head/brain and cervical spine without intravenous contrast. Sagittal and coronal reformatted images were created and reviewed. This CT exam was pe rformed using one or more of the following dose reduction techniques: automated exposure control, a djustment of the mA and/or kV according to patient size, and/or use of iterative reconstruction techn ique. COMPARISON: CT Head Cervical Spine dated 05/24/2018 FINDINGS: Brain: Unremarkable. No hemorrhage. No significant white matter disease. No edema. Ventricles: Unremarkable. No ventriculomegaly. Skull: No acute fracture. Sinuses: Unremarkable as visualized. No acute sinusitis. Mastoid air cells: Unremarkable as visualized. No mastoid effusion. Vertebrae: Unremarkable. No acute fracture. Normal alignment. Discs/spinal canal/neural foramina: Early degenerative changes at C5-C6 mildly progressed. No spi nal canal stenosis. Soft tissues: Moderate right forehead/supraorbital soft tissue contusion/hematoma. Vasculature: There is atherosclerotic disease of the internal carotid arteries bilaterally. Lung apices: Moderate bilateral upper lobe centrilobular emphysema. IMPRESSION: 1. No acute intracranial or extra-axial abnormality. 2. No acute cervical spine injury. Electronically signed by: Susan Caballero MD 07/19/2022 3:14 AM CDT Due to temporary technical issues with the PACS/Fluency reporting system, reports are being signed by the in house radiologists without review as a courtesy to insure prompt reporting. The interpreting radiologist is fully responsible for the content of the report.
--- NOTE | 2022-07-19 15:29 | RAD REPORT ---
EXAM DESCRIPTION: RAD - Wrist Right 3 View - 07/19/2022 2:18 am CLINICAL HISTORY: DEFORMITY TECHNIQUE: Frontal, lateral and oblique views of the right wrist. COMPARISON: No relevant prior studies available. FINDINGS: Bones/joints: Osseous structures are osteopenic. Mildly impacted distal radial metaphy seal fracture. Intra-articular extension cannot be entirely excluded. No dislocation. Soft tissues: Moderate soft tissue swelling most pronounced along the dorsal aspect of the wrist. No radiopaque foreign body. IMPRESSION: Distal radial fracture. Intra-articular extension cannot be excluded. Electronically signed by: Susan Caballero MD 07/19/2022 3:22 AM CDT Due to temporary technical issues with the PACS/Fluency reporting system, reports are being signed by the in house radiologists without review as a courtesy to insure prompt reporting. The interpreting radiologist is fully responsible for the content of the report.
[2022-07-19] MEDS ORDERED: HYDRALAZINE HCL 20 MG/ML VIAL IV PRN (20:24)
[2022-07-19] MEDS: MORPHINE 4 MG/ML SYR IV PRN (21:29)
[2022-07-19 22:04] LABS: Barbiturates NEGATIVE (NEGATIVE); Benzodiazepines NEGATIVE (NEGATIVE); Cocaine NEGATIVE (NEGATIVE); METHAMPHETAM NEGATIVE (NEGATIVE); Methadone NEGATIVE (NEGATIVE); Opiates NEGATIVE (NEGATIVE); Phencyclidine NEGATIVE (NEGATIVE); THC Cannibis NEGATIVE (NEGATIVE)
[2022-07-19 22:24] LABS: Urine Bacteria <20 /HPF (<20); Urine Mucus Slight /HPF (None Seen)
[2022-07-19 22:25] LABS: Specific Gravity < 1.005 (1.005-1.030); Urine Bilirubin NEGATIVE (Negative); Urine Blood Negative (Negative); Urine Clarity Clear (Clear); Urine Color Colorless (Yellow); Urine Glucose NEGATIVE (Negative); Urine Protein NEGATIVE (Negative); Urine Urobilinogen Normal (Normal); Urine pH 5.5 (5.0-7.0)
[2022-07-20] MEDS: NA CHLORIDE 0.9% 1,000 ML IV SCH ×3 (01:33→09:57)
[2022-07-20 06:00] LABS: Absolute Lymphocytes (CBC) 1.6 K/uL (0.7-4.9); Hematocrit 35.8 % (36.0-45.0); MCV 92.1 fL (80-100); MPV 6.9 fL (7.6-11.3); RBC Red Blood Cell Count 3.89 M/uL (3.86-4.86)
[2022-07-20 06:10] LABS: Magnesium 2.1 mg/dL (1.8-2.4); Potassium 3.9 mmol/L (3.5-5.1)
[2022-07-20] MEDS: ENOXAPARIN 40 MG/0.4 ML SQ SCH (07:37)
[2022-07-20] MEDS ORDERED: POTASSIUM CL SA 10 MEQ TAB PO ONE (09:00)
[2022-07-20] MEDS ORDERED: AMLODIPINE 5 MG TAB PO SCH (09:00)
[2022-07-20] MEDS ORDERED: lisinopriL 10 MG TAB PO SCH (09:00)
[2022-07-20] MEDS: MORPHINE 4 MG/ML SYR IV PRN (09:50)
[2022-07-20 10:19] VITALS: O2SAT 100
--- NOTE | 2022-07-20 12:31 | P.DS ---
Admission Date: 07/19/22 Discharge Date: 07/20/22 Disposition: ROUTINE DISCHARGE Discharge Condition: FAIR Reason for Admission: Hyponatremia - Problems (1) Alcohol intoxication Current Visit: Yes Status: Acute (2) Right wrist fracture Current Visit: Yes Status: Acute (3) Chronic respiratory failure with hypoxia Current Visit: Yes Status: Acute (4) COPD (chronic obstructive pulmonary disease) Current Visit: Yes Status: Acute Qualifiers: COPD type: emphysema Emphysema type: unspecified Qualified Code(s): J43.9 - Emphysema, unspecified (5) Hyponatremia Current Visit: Yes Status: Acute (6) Alcohol abuse Current Visit: Yes Status: Chronic Brief History of Present Illness: Patient is a 61-year-old female with history of COPD on chronic home oxygen, CVA, GERD, hypertension, CAD, and alcohol abuse who presented to the ED s/p fall. She had been drinking tonight, slipped and fell. She landed on her right wrist and also hit her head. She did not lose consciousness nor is she on blood thinners. Her head CT was negative. Chest xray showed emphysema. Xray showed right distal radius fracture. Labs significant for sodium 120, chloride 85,serum alcohol 430. Patient reports she had 6 beers tonight but she typically drinks 4 beers/night. She was given 500 mL NS, breathing treatment, thiamine, and folic acid in ED. Patient was admitted for further management. Hospital Course: Patient was treated with IV normal saline for be able to manage. Sodium level improved to 135. Patient remained alert and oriented. She did not experience alcohol withdrawal. She ambulated with physical therapy in the hallway independently, no walker or any form of assistance. Sodium level has significantly improved, right wrist immobilized. Patient is deemed stable for discharge. Fall precautions discussed. Recommending home health to reevaluate her risk of falls at home. Vital Signs/Physical Exam: Temp Pulse Resp BP Pulse Ox 97 F 87 20 148/70 H 99 07/20/22 08:00 07/20/22 09:51 07/20/22 09:50 07/20/22 09:51 07/20/22 09:50 General: Alert, In no apparent distress, Other HEENT: Mucous membr. moist/pink Neck: JVD not distended Respiratory: Clear to auscultation bilaterally, Normal air movement Cardiovascular: Regular rate/rhythm, Normal S1 S2 Gastrointestinal: Normal bowel sounds, Soft and benign, Non-distended, No tenderness Integumentary: No cyanosis Neurological: Normal strength at 5/5 x4 extr Laboratory Data at Discharge: WBC 5.40 K/uL (4.3-10.9) 07/20/22 05:47 Hgb 12.0 g/dL (12.0-15.0) D 07/20/22 05:47 Hct 35.8 % (36.0-45.0) L 07/20/22 05:47 Plt Count 142 K/uL (152-406) L D 07/20/22 05:47 Sodium 135 mmol/L (136-145) L D 07/20/22 05:47 Potassium 3.9 mmol/L (3.5-5.1) 07/20/22 05:47 BUN 4 mg/dL (7-18) L 07/20/22 05:47 Creatinine 0.35 mg/dL (0.55-1.3) L 07/20/22 05:47 Glucose 96 mg/dL (74-106) 07/20/22 05:47 Phosphorus 2.8 mg/dL (2.5-4.9) 07/19/22 06:48 Magnesium 2.1 mg/dL (1.8-2.4) 07/20/22 05:47 Total Bilirubin 0.2 mg/dL (0.2-1.0) 07/19/22 02:09 AST 37 U/L (15-37) 07/19/22 02:09 ALT 41 U/L (12-78) 07/19/22 02:09 Alkaline Phosphatase 88 U/L (45-117) 07/19/22 02:09 Lipase 108 U/L (73-393) 07/19/22 02:09 Home Medications: Aspirin [Adult Aspirin] 81 mg PO DAILY 07/31/18 Albuterol Sulfate [Proair Hfa] 1 puff IH Q3H PRN 08/16/18 Acetaminophen [Acetaminophen Extra Strength] 2 tab PO BID PRN 03/09/22 Cyanocobalamin (Vitamin B-12) [Vitamin B-12] 1 tab PO DAILY 03/09/22 Omeprazole Magnesium [Prilosec Otc] 20 mg PO DAILY 03/09/22 Tiotropium Br/Olodaterol HCl [Stiolto Respimat Inhal [place]] 2 puff IH DAILY 03/09/22 Amlodipine [Norvasc*] 5 mg PO DAILY #30 tab 03/12/22 Ipratropium/Albuterol Sulfate [Iprat-Albut 0.5-3(2.5) mg/3 ml] 3 ml IH Q6HP PRN #60 ampul.neb 03/12/22 lisinopriL [Prinivil*] 10 mg PO DAILY #30 tab 03/12/22 Hydrocodone 5/APAP 325 [[place] 5/325] 1 tab PO Q6H PRN #12 tab 07/20/22 Thiamine HCl 100 mg PO DAILY #30 tab 07/20/22 predniSONE [Prednisone] 10 mg PO BID #8 tab 07/20/22 New Medications: Hydrocodone 5/APAP 325 [[place] 5/325] 1 tab PO Q6H PRN #12 tab PRN Reason: Pain predniSONE [Prednisone] 10 mg PO BID #8 tab Thiamine HCl 100 mg PO DAILY #30 tab Diet: AHA Activity: Fall precautions Followup: NONE,NONE [Primary Care Provider] - 1 Week Time spent managing pt's care (in minutes): 34
--- NOTE | 2022-07-20 12:38 | EKG ---
Test Date: 2022-07-19 Test Time: 02:01:37 Turning Sander Operator: MEASUREMENT RESULTS: Intervals: Rate: 82 CT: 160 QRSD: 86 QT: 358 QTc: 418 Shiner: P: 64 CT: 160 QRS: 65 T: 84 INTERPRETIVE STATEMENTS: Normal sinus rhythm Nonspecific ST abnormality Abnormal ECG Compared to ECG 04/28/2022 08:55:40 ST (T wave) deviation now present Electronically Signed On 07-20-22 12:36:00 CDT by Yosvany Vizcarra
[2022-07-20 14:01] VITALS: BP 194/88; TEMP 98.4
== END 2022-07-20 14:15 | disposition home or self-care (01) | DRG 641 ==
LOC: ER 01:52 → ERHOLD 05:06 → 2ND 05:11
PROVIDERS: ADMIT Internal Medicine; ATTEND Internal Medicine
DX: E87.1 Hypo-osmolality and hyponatremia (principal); S52.531A Colles' fracture of right radius, initial encounter for closed fracture; J96.11 Chronic respiratory failure with hypoxia; I10 Essential (primary) hypertension; J43.9 Emphysema, unspecified; M25.531 Pain in right wrist; K21.9 Gastro-esophageal reflux disease without esophagitis; I25.10 Atherosclerotic heart disease of native coronary artery without angina pectoris; F10.129 Alcohol abuse with intoxication, unspecified; S09.90XA Unspecified injury of head, initial encounter; R07.9 Chest pain, unspecified; Z95.5 Presence of coronary angioplasty implant and graft; Z79.82 Long term (current) use of aspirin; Z79.52 Long term (current) use of systemic steroids; Z99.81 Dependence on supplemental oxygen; Z86.73 Personal history of transient ischemic attack (TIA), and cerebral infarction without residual deficits; Z87.891 Personal history of nicotine dependence; Z79.899 Other long term (current) drug therapy; Z28.310 Unvaccinated for COVID-19; Z20.822 Contact with and (suspected) exposure to COVID-19; W01.0XXA Fall on same level from slipping, tripping and stumbling without subsequent striking against object, initial encounter; Y92.091 Bathroom in other non-institutional residence as the place of occurrence of the external cause; Y93.01 Activity, walking, marching and hiking; Y90.8 Blood alcohol level of 240 mg/100 ml or more
CPT/HCPCS: 36415; 70450; 71250; 72125; 80048; 80076; 80307; 80320; 81003; 83690; 83735; 83930; 83935; 84100; 84300; 85025; 86850; 86900; 86901; 87811; 93005; 94640; 94760; 96365; 97161; 99285; J0360; J1650; J3411; J3475; J7030; J7040

== ENCOUNTER 2022-09-12 09:13 | Observation (INO) | payer OTHER ==
--- OUTSIDE RECORDS SUMMARY | 2022-09-12 09:18 | XMS REPORT | Continuity of Care Document ---
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 ATININE CLEARANCE IN [place] EDICTING GLOMERULAR FILT RATION RATE. ESTIMATED GFR [...] code = 413) MR, MRA, BRAIN, WITHOUT [id number] 22:00:00Reason for exam:->Ischemic Stroke EvaluationFINAL REPORT MR, [...] MDReport Verified Date/Time: 05/25/2018 22:00:39 Reading Location: [facility] C013Y CT Body Reading Room MR, MRA, NECK, WITHOUT IV [id number] 22:00:00Reason for exam:- >Ischemic Stroke EvaluationFINAL REPORT [...] MDReport Verified Date/Time: 05/25/2018 22:00:39 Reading Location: [facility] B1 C013Y CT Body Reading Room MR, BRAIN, WITHOUT [id number] 22:00:00Reason for exam:- >Ischemic Stroke EvaluationFINAL REPORT [...] MDReport Verified Date/Time: 05/25/2018 22:00:39 Reading Location: [place] [address] CT Body Reading Room HEMOGLOBIN [id number] 09:45:00 Test Item Value Reference Range Interpretation Comments HEMOGLOBIN A1C (BEAKER) (test code = 5.4 % 4.3-6.1 368) LIPID [id number] 07:58:00 Test Item Value Reference Range Interpretation [...] High 160-189 Very High >=190TSH/FREE T4 IF [id number] 06:27:00 Test Item Value Reference Range Interpretation Comments THYROID STIMULATING HORMONE 4.27 uIU/mL 0.35-4.94 (BEAKER) (test code = 772) CREATINE KINASE (CK), TOTAL AND [id number] 06:13:00 Test Item Value Reference Range Interpretation Comments CREATINE KINASE TOTAL (BEAKER) 53 U/L 29-200 (test code = 380) CREATINE KINASE-MB (BEAKER) (test 3.9 ng/mL 0.0-6.6 code = 750) CREATINE KINASE-MB INDEX (BEAKER) 7.4 % (test code = 395) CK-MB Reference Range:<6.7 Normal6.7-10.0 Borderline>10.0 AbnormalTROPONIN [id number] 06:13:00 Test Item Value Reference Range Interpretation [...] acidosis, acute neurological disease, and persistent tachyarrhythmia.CALCIUM, [id number] 06:13:00 Test Item Value Reference Range Interpretation Comments CALCIUM IONIZED (BEAKER) (test 1.17 mmol/L 1.12-1.27 code = 698) PH, BLOOD (BEAKER) (test code = 7.33 1810) [id number] 06:05:00 Test Item Value Reference Range Interpretation Comments PHOSPHORUS (BEAKER) (test code = 4.1 mg/dL 2.3-4.7 604) [id number] 06:05:00 Test Item Value Reference Range Interpretation Comments MAGNESIUM (BEAKER) (test code = 2.0 mg/dL 1.6-2.6 627) CBC W/PLT COUNT & AUTO [id number] 05:44:00 Test Item Value Reference Range Interpretation [...] PERCENT (BEAKER) (test code = 2801) TROPONIN [id number] 01:50:00 Test Item Value Reference Range Interpretation [...] acute neurological disease, and persistent tachyarrhythmia.BASIC METABOLIC [id number] 22:36:00 Test Item Value Reference Range Interpretation [...] PATIEN TS. CREATINE KINASE (CK), TOTAL AND [id number] 21:46:00 Test Item Value Reference Range Interpretation [...] mechanical heart valves.RAD, CHEST, 1 VIEW, NON [id number] 20:22:00Reason for exam:->SOBShould this be performed at [...] MDReport Verified Date/Time: 05/24/2018 20:22:32 Reading Location: [address] Reading Room
[2022-09-12] MEDS ORDERED: NITROGLYCERIN 0.4 MG/TAB SL ONE (09:30)
[2022-09-12 09:34] LABS: Absolute Lymphocytes (CBC) 2.4 K/uL (0.7-4.9); Hematocrit 43.6 % (36.0-45.0); Lymphocytes % 33.6 % (15.3-44.8); MPV 6.8 fL (7.6-11.3); RBC Red Blood Cell Count 4.64 M/uL (3.86-4.86)
[2022-09-12 09:36] LABS: Protime INR 0.86
[2022-09-12 09:51] LABS: ALT/SGPT 27 U/L (13-56); AST/SGOT 25 U/L (15-37); Albumin 3.2 g/dL (3.4-5.0); Alkaline Phosphatase 121 U/L (45-117); BUN Blood Urea Nitrogen 5 mg/dL (7-18); Bicarbonate 24 mmol/L (21-32); Bilirubin Total 0.2 mg/dL (0.2-1.0); Glomerular Filtration Rate 111 ml/min (=/>90); Glucose Level 126 mg/dL (74-106); Magnesium 1.9 mg/dL (1.6-2.4); NT PRO-BNP 44 pg/mL (<125); Potassium 4.5 mmol/L (3.5-5.1); Sodium Level 132 mmol/L (136-145); Troponin High Sensitivity 8.2 pg/mL (<58.9)
[2022-09-12 09:52] LABS: Bilirubin Direct < 0.1 mg/dL (0-0.2)
[2022-09-12 10:10] LABS: SARS-COV-2 RT PCR NEGATIVE (NEGATIVE)
--- NOTE | 2022-09-12 10:25 | RAD REPORT ---
EXAM DESCRIPTION: RAD - Chest Single View - 09/12/2022 10:03 am CLINICAL HISTORY: CHEST PAIN COMPARISON: Chest Single View dated 04/28/2022; Chest Single View dated 04/17/2022; Chest Single View d ated 03/12/2022; Chest Single View dated 03/09/2022 FINDINGS: Lines: None. Lungs: No evidence of edema or pneumonia. Pleural: No significant pleural effusions or pneumothorax. Cardiac: The heart size is within normal limits. Mediastinum: Within normal limits. Bones: No acute fractures. Other: None IMPRESSION: No acute cardiopulmonary disease.
[2022-09-12] MEDS ORDERED: METOPROLOL TAR 25 MG TAB ONE (10:54)
[2022-09-12] MEDS ORDERED: MORPHINE 2 MG/ML SYR ONE (10:54)
[2022-09-12] MEDS ORDERED: IPRATROPIUM BROM 0.5MG/2.5ML ONE (10:55)
[2022-09-12] MEDS ORDERED: ALBUTEROL 2.5 MG/3 ML NEB SOL ONE (10:55)
--- NOTE | 2022-09-12 11:46 | EDPHYS ---
Physician Documentation [facility] Name: Ansley Henderson Age: 61 yrs Sex: Female : 1960 Arrival Date: 09/12/2022 Time: 09:17 Bed 7 Private MD: ED Physician Sadia Moyer HPI: 09/12 09:25 This 61 yrs old Female presents to ER via EMS with complaints of Chest Pain. cp 09:25 The patient or guardian reports chest pain that is located primarily in the anterior cp chest wall, bilaterally. Onset: this morning. The pain does not radiate. 09/13 13:04 Associated signs and symptoms: Pertinent positives: cough, Pertinent negatives: cp abdominal pain, lower extremity pain, lower extremity swelling, syncope, vomiting. Historical: - Allergies: 09/12 09:20 No Known Allergies; ko1 - PMHx: 09:20 Alcoholism; CAD; COPD; CVA; GERD; HEART STENT; Hypertension; ko1 - Immunization history:: Adult Immunizations unknown. - Social history:: Smoking status: Patient/guardian denies using tobacco. ROS: 09:28 Constitutional: Negative for body aches, chills, fever, poor PO intake. cp 09:28 Cardiovascular: Positive for chest pain, Negative for edema, palpitations. 09:28 Respiratory: Negative for cough, shortness of breath, wheezing. 09:28 Abdomen/GI: Negative for abdominal pain, nausea, vomiting, and diarrhea. 09:28 Eyes: Negative for injury, pain, redness, and discharge. cp 09:28 ENT: Negative for drainage from ear(s), ear pain, sore throat, difficulty swallowing, difficulty handling secretions. 09:28 Back: Negative for pain at rest, pain with movement. cp 09:28 Skin: Negative for cellulitis, rash. 09:28 Neuro: Negative for altered mental status, dizziness, headache, numbness, syncope, weakness. 09:29 All other systems are negative. cp Exam: 09:22 ECG was reviewed by the Attending Physician. cp 09:30 Constitutional: The patient appears in no acute distress, alert, awake, cp non-diaphoretic, non-toxic, well developed, well nourished, uncomfortable. 09:30 Head/Face: Normocephalic, atraumatic. cp 09:30 Eyes: Periorbital structures: appear normal, Pupils: equal, round, and reactive to cp light and accomodation, Extraocular movements: intact throughout, Conjunctiva: normal, no exudate, no injection, Sclera: no appreciated abnormality, Lids and lashes: appear normal, bilaterally. 09:30 ENT: External ear(s): are unremarkable, Nose: is normal, Mouth: Lips: moist, Oral mucosa: pink and intact, moist, Posterior pharynx: Airway: no evidence of obstruction, patent. 09:30 Neck: ROM/movement: is normal, is supple, without pain, no range of motions limitations. 09:30 Chest/axilla: Inspection: normal, Palpation: is normal, no crepitus, no tenderness. 09:30 Cardiovascular: Rate: normal, Rhythm: regular, Edema: is not appreciated, JVD: is not appreciated. 09:30 Respiratory: the patient does not display signs of respiratory distress, Respirations: labored breathing, that is mild, Breath sounds: decreased breath sounds, that are moderate, throughout, stridor, is not appreciated, wheezing: is not appreciated. 09:30 Abdomen/GI: Inspection: abdomen appears normal, Palpation: abdomen is soft and non-tender, in all quadrants. 09:30 Back: pain, is absent, ROM is normal. cp 09:30 Skin: cellulitis, is not appreciated, no rash present. 09:30 Neuro: Orientation: to person, place \T\ time. Mentation: is normal, Motor: moves all fours, strength is normal, Sensation: is normal. Vital Signs: 09:18 BP 170 / 87; Pulse 80; Resp 22; Temp 97.4(O); Pulse Ox 97% on 3 lpm NC; ko1 11:04 BP 127 / 71; Pulse 92; Pulse Ox 96% on 3 lpm NC; ko1 14:18 BP 134 / 90; Pulse 99; Pulse Ox 100% on 3 lpm NC; ko1 15:29 BP 152 / 86; Pulse 91; Resp 17; Pulse Ox 99% on 3 lpm NC; hb MDM: 09:21 Patient medically screened. cp 10:00 Differential diagnosis: abnormal EKG, acute myocardial infarction, acute pericarditis, cp pleurisy, pneumonia, pneumothorax, pulmonary embolus, stable angina, thoracic aortic disection, unstable angina. 11:40 The patient was not given aspirin in the Emergency Department. Administered by EMS. 11:40 Data reviewed: vital signs, nurses notes, lab test result(s), EKG, radiologic studies, cp plain films. Test interpretation: by ED physician or midlevel provider: ECG, plain radiologic studies. Counseling: I had a detailed discussion with the patient and/or guardian regarding: the historical points, exam findings, and any diagnostic results supporting the discharge/admit diagnosis, lab results, radiology results, the need for further work-up and treatment in the hospital. Physician consultation: Yong Gaona was contacted at 11:40, regarding admission, to the telemetry unit. patient's condition. 09/12 09:22 Order name: Basic Metabolic Panel; Complete Time: 10:20 09/12 10:20 Interpretation: Normal except: NA 132; GLUC 126; BUN 5; CRE 0.40. 09/12 09:22 Order name: CBC with Diff; Complete Time: 10:20 09/12 10:21 Interpretation: Normal except: MPV 6.8. 09/12 09:22 Order name: LFT's; Complete Time: 10:20 09/12 10:26 Interpretation: Normal except: ALK 121; ALB 3.2; GLOB 3.8; A/G 0.8. 09/12 09:22 Order name: Magnesium; Complete Time: 10:20 09/12 09:22 Order name: NT PRO-BNP; Complete Time: 10:20 09/12 09:22 Order name: PT-INR; Complete Time: 10:20 09/12 09:22 Order name: Troponin HS; Complete Time: 10:20 09/12 10:30 Interpretation: Reviewed. 09/12 09:22 Order name: XRAY Chest (1 view); Complete Time: 10:25 09/12 10:26 Interpretation: Report review. 09/12 09:23 Order name: COVID-19/FLU A+B; Complete Time: 10:20 09/12 10:51 Order name: LAB Add On 09/12 10:51 Order name: D-Dimer; Complete Time: 11:17 09/12 09:22 Order name: EKG; Complete Time: 09:23 09/12 09:22 Order name: Cardiac monitoring; Complete Time: 09: cp 09/12 09:22 Order name: EKG - Nurse/Tech; Complete Time: : cp 09/12 09:22 Order name: IV Saline Lock; Complete Time: cp 09/12 09:22 Order name: Labs collected and sent; Complete Time: cp 09/12 09:22 Order name: O2 Per Protocol; Complete Time: cp 09/12 09:22 Order name: O2 Sat Monitoring; Complete Time: cp 09/12 11:48 Order name: Diet Regular; Complete Time: 12:05 cp EC:22 Rate is 87 beats/min. Rhythm is regular. MS interval is normal. QRS interval is normal. cp QT interval is normal. T waves are Inverted in lead aVR. Interpreted by me. Reviewed by me. Administered Medications: : Drug: Nitroglycerin 0.4 mg Route: Sublingual; ko1 09: Not Given (given by EMS): Aspirin Chewable Tablet 324 mg PO once; 81 mg tablets x 4 ko1 10:59 Drug: AtroVENT (ipratropium) Aerosol 0.5 mg Route: Inhalation; ko1 11:00 Drug: morphine 2 mg Route: IVP; Infused Over: 4 mins; Site: left forearm; ko1 11:00 Drug: Albuterol 2.5 mg Route: Inhalation; ko1 Disposition Summary: 09/12/22 11:45 Hospitalization Ordered Hospitalization Status: Observation cp Provider: Yong Gaona cp Location: Telemetry/MedSurg (observation) cp Condition: Stable cp Problem: new cp Symptoms: have improved cp Bed/Room Type: Standard cp Room Assignment: 219(09/12/22 14:27) Diagnosis - Chest pain, unspecified cp Forms: - Medication Reconciliation Form cp - SBAR form cp Addendum: 09/16/2022 18:23 STAFF ATTESTATION STATEMENT: I was immediately available onsite in the emergency s d2 department for consultation in the care of this patient. I did not see or examine this patient. Sadia Moyer MD. Signatures: Dispatcher [employer] EDZenaida Dennison RN RN ss Gil Anton, BOBY PA Sadia Urbina MD MD sd2 Zoe Abernathy RN RN ko1 Corrections: (The following items were deleted from the chart) 09/12 09: 09:26 Constitutional: This is a well developed, well nourished patient who is awake, cp alert, and in no acute distress. Head/Face: Normocephalic, atraumatic. Eyes: Pupils equal round and reactive to light, extra-ocular motions intact. Lids and lashes normal. Conjunctiva and sclera are non-icteric and not injected. Cornea within normal limits. Periorbital areas with no swelling, redness, or edema. ENT: Nares patent. No nasal discharge, no septal abnormalities noted. Tympanic membranes are normal and external auditory canals are clear. Oropharynx with no redness, swelling, or masses, exudates, or evidence of obstruction, uvula midline. Mucous membranes moist. Neck: Trachea midline, no thyromegaly or masses palpated, and no cervical lymphadenopathy. Supple, full range of motion without nuchal rigidity, or vertebral point tenderness. No Meningismus. Chest/axilla: Normal chest wall appearance and motion. Nontender with no deformity. No lesions are appreciated. Cardiovascular: Regular rate and rhythm with a normal S1 and S2. No gallops, murmurs, or rubs. Normal PMI, no JVD. No pulse deficits. Respiratory: Lungs have equal breath sounds bilaterally, clear to auscultation and percussion. No rales, rhonchi or wheezes noted. No increased work of breathing, no retractions or nasal flaring. Abdomen/GI: Soft, non-tender, with normal bowel sounds. No distension or tympany. No guarding or rebound. No evidence of tenderness throughout. Back: No spinal tenderness. No costovertebral tenderness. Full range of motion. Skin: Warm, dry with normal turgor. Normal color with no rashes, no lesions, and no evidence of cellulitis. Neuro: Awake and alert, GCS 15, oriented to person, place, time, and situation. Cranial nerves II-XII grossly intact. Motor strength 5/5 in all extremities. Sensory grossly intact. Cerebellar exam normal. Normal gait. cp : 09:27 Constitutional: Negative for fever, chills, and weight loss, Eyes: Negative for cp injury, pain, redness, and discharge, ENT: Negative for injury, pain, and discharge, Neck: Negative for injury, pain, and swelling, Cardiovascular: Negative for chest pain, palpitations, and edema, Respiratory: Negative for shortness of breath, cough, wheezing, and pleuritic chest pain, Abdomen/GI: Negative for abdominal pain, nausea, vomiting, diarrhea, and constipation, Back: Negative for injury and pain, : Negative for injury, bleeding, discharge, and swelling, MS/Extremity: Negative for injury and deformity, Skin: Negative for injury, rash, and discoloration, Neuro: Negative for headache, weakness, numbness, tingling, and seizure, Psych: Negative for depression, anxiety, suicide ideation, homicidal ideation, and hallucinations, cp 14:27 11:45 cp ss 09/13 13:21 09/12 09:28 All other systems are negative, cp cp
--- NOTE | 2022-09-12 11:46 | ER ---
Nurse's Notes [facility] Name: Ansley Henderson Age: 61 yrs Sex: Female : 1960 Arrival Date: 09/12/2022 Time: 09:17 Bed 7 Private MD: Diagnosis: Chest pain, unspecified Presentation: 09/12 09:18 Chief complaint: EMS states: patient called for chest pain, has a history of AR with ko1 stent placement, COPD, CVA and HTN. Coronavirus screen: At this time, the client does not indicate any symptoms associated with coronavirus-19. Ebola Screen: No symptoms or risks identified at this time. Initial Sepsis Screen: Does the patient meet any 2 criteria? No. Patient's initial sepsis screen is negative. Does the patient have a suspected source of infection? No. Patient's initial sepsis screen is negative. Risk Assessment: Do you want to hurt yourself or someone else? Patient reports no desire to harm self or others. Onset of symptoms. 09:18 Method Of Arrival: EMS: [facility] ko1 09:18 Acuity: ENMANUEL 2 ko1 09:23 Care prior to arrival: Medication(s) given: ASA, 81 mg, x 4. ko1 09:29 Onset of symptoms was September 08, 2022 at 08:00. ko1 Triage Assessment: 09:20 General: Appears in no apparent distress. uncomfortable, Behavior is calm, cooperative, ko1 appropriate for age. Pain: Complains of pain in chest. Historical: - Allergies: 09:20 No Known Allergies; ko1 - PMHx: 09:20 Alcoholism; CAD; COPD; CVA; GERD; HEART STENT; Hypertension; ko1 - Immunization history:: Adult Immunizations unknown. - Social history:: Smoking status: Patient/guardian denies using tobacco. Screenin:42 [facility] ED Fall Risk Assessment (Adult) Score/Fall Risk Level 3 or more points = High hb Risk Oriented to surroundings, Maintained a safe environment. Abuse screen: Denies threats or abuse. Denies injuries from another. Nutritional screening: No deficits noted. Tuberculosis screening: No symptoms or risk factors identified. Assessment: 09:23 Neuro: No deficits noted. Cardiovascular: Reports chest pain. Respiratory: No deficits ko1 noted. GI: No deficits noted. : No signs and/or symptoms were reported regarding the genitourinary system. EENT: No deficits noted. Derm: No deficits noted. Musculoskeletal: No deficits noted. 11:00 Reassessment: Patient appears in no apparent distress at this time. Patient and/or hb family updated on plan of care and expected duration. Pain level reassessed. Patient is alert, oriented x 3, equal unlabored respirations, skin warm/dry/pink. 12:30 Reassessment: Patient appears in no apparent distress at this time. Patient and/or hb family updated on plan of care and expected duration. Pain level reassessed. Patient is alert, oriented x 3, equal unlabored respirations, skin warm/dry/pink. 14:00 Reassessment: Patient appears in no apparent distress at this time. Patient and/or hb family updated on plan of care and expected duration. Pain level reassessed. Patient is alert, oriented x 3, equal unlabored respirations, skin warm/dry/pink. Vital Signs: 09:18 BP 170 / 87; Pulse 80; Resp 22; Temp 97.4(O); Pulse Ox 97% on 3 lpm NC; ko1 11:04 BP 127 / 71; Pulse 92; Pulse Ox 96% on 3 lpm NC; ko1 14:18 BP 134 / 90; Pulse 99; Pulse Ox 100% on 3 lpm NC; ko1 15:29 BP 152 / 86; Pulse 91; Resp 17; Pulse Ox 99% on 3 lpm NC; hb ED Course: 09:17 Patient arrived in ED. ko1 09:18 Gil Anton PA is PHCP. cp 09:18 Sadia Moyer MD is Attending Physician. cp 09:20 Triage completed. ko1 09:20 Arm band placed on left wrist. ko1 09:22 Patient has correct armband on for positive identification. Fall risk band placed. Bed ko1 in low position. Call light in reach. Side rails up X2. Client placed on continuous cardiac and pulse oximetry monitoring. NIBP monitoring applied. rail car repair carman on. :22 Inserted saline lock: 20 gauge in left forearm, using aseptic technique. Blood ko1 collected. 09:24 Basic Metabolic Panel Sent. ko1 09:24 CBC with Diff Sent. ko1 09:24 LFT's Sent. ko1 09:24 Magnesium Sent. ko1 09:24 NT PRO-BNP Sent. ko1 09:24 PT-INR Sent. ko1 09:24 Troponin HS Sent. ko1 09:29 COVID-19/FLU A+B Sent. hb 09:42 Annika Rivers, RN is Primary Nurse. hb 10:05 XRAY Chest (1 view) In Process Unspecified. EDMS 10:59 LAB Add On Sent. ko1 11:44 Yong Gaona is Hospitalizing Provider. cp 13:03 No provider procedures requiring assistance completed. ko1 14:28 Primary Nurse role handed off by Annika Rivers, RN ss Administered Medications: :28 Drug: Nitroglycerin 0.4 mg Route: Sublingual; ko1 09:28 Not Given (given by EMS): Aspirin Chewable Tablet 324 mg PO once; 81 mg tablets x 4 ko1 10:59 Drug: AtroVENT (ipratropium) Aerosol 0.5 mg Route: Inhalation; ko1 11:00 Drug: morphine 2 mg Route: IVP; Infused Over: 4 mins; Site: left forearm; ko1 11:00 Drug: Albuterol 2.5 mg Route: Inhalation; ko1 Medication: 09:42 VIS not applicable for this client. hb Outcome: 11:45 Decision to Hospitalize by Provider. cp 14:28 Patient left the ED. ss 16:47 Patient left the ED. hb Signatures: Dispatcher [employer] EDMD Zenaida Hewitt RN RN Gil Anton PA PA cp Annika Rivers RN RN Zoe Abernathy RN RN ko1
--- NOTE | 2022-09-12 13:23 | P.HP ---
Patient History Date of Service: 09/12/22 Allergies No Known Allergies Allergy (Verified 08/16/18 01:17) Home Medications: Aspirin [Adult Aspirin] 81 mg PO DAILY 07/31/18 Albuterol Sulfate [Proair Hfa] 1 puff IH Q3H PRN 08/16/18 Acetaminophen [Acetaminophen Extra Strength] 2 tab PO BID PRN 03/09/22 Cyanocobalamin (Vitamin B-12) [Vitamin B-12] 1 tab PO DAILY 03/09/22 Omeprazole Magnesium [Prilosec Otc] 20 mg PO DAILY 03/09/22 Tiotropium Br/Olodaterol HCl [Stiolto Respimat Inhal [place]] 2 puff IH DAILY 03/09/22 Amlodipine [Norvasc*] 5 mg PO DAILY #30 tab 03/12/22 Ipratropium/Albuterol Sulfate [Iprat-Albut 0.5-3(2.5) mg/3 ml] 3 ml IH Q6HP PRN #60 ampul.neb 03/12/22 lisinopriL [Prinivil*] 10 mg PO DAILY #30 tab 03/12/22 Hydrocodone 5/APAP 325 [[place] 5/325] 1 tab PO Q6H PRN #12 tab 07/20/22 Thiamine HCl 100 mg PO DAILY #30 tab 07/20/22 predniSONE [Prednisone] 10 mg PO BID #8 tab 07/20/22 - Past Medical/Surgical History Diabetic: No -: Hypertension -: Coronary artery disease, stent -: COPD on home oxygen and chronic steroids -: hx Tobacco abuse -: GERD -: Gastric ulcers -: Alcohol abuse -: -: Stent placement Psychosocial/ Personal History: The patient is . She has 5 children. - Family History Mother -: Heart disease, Cancer - Social History Alcohol use: Yes CD- Drugs: Yes Caffeine use: Yes Physical Examination - Studies Laboratory Data (last 24 hrs) 09/12/22 09:20: PT 9.5, INR 0.86 09/12/22 09:20: WBC 7.00, Hgb 14.6, Hct 43.6, Plt Count 362 09/12/22 09:20: Sodium 132 L, Potassium 4.5, BUN 5 L, Creatinine 0.40 L, Glucose 126 H, Magnesium 1.9, Total Bilirubin 0.2, AST 25, ALT 27, Alkaline Phosphatase 121 H Assessment and Plan - Advance Directives Does patient have a Living Will: No Does patient have a Durable POA for Healthcare: Yes
--- NOTE | 2022-09-12 16:16 | P.HP ---
Certification for Inpatient Patient admitted to: Observation With expected LOS: <2 Midnights Practitioner: I am a practitioner with admitting privileges, knowledge of patient current condition, hospital course, and medical plan of care. Services: Services provided to patient in accordance with Admission requirements found in Title 42 Section 412.3 of the Code of Federal Regulations Patient History Date of Service: 09/12/22 Reason for admission: Chest pain History of Present Illness: 61-year-old woman with a history of COPD and coronary artery disease status post stent several years ago presented to the emergency department with a complaint of chest pain of onset this morning. Patient report intermittent chest pain located in bilateral flanks and in-between shoulder blades that has been present for a month, worse with deep breathing and coughing. She stated her pain became much worse today precipitated by an argument with her daughter. She described his pain as worse with deep breathing and coughing. She has a history of COPD and chronic respiratory failure on oxygen by nasal cannula. No known relieving factors. Work-up in the emergency department has been unremarkable, initial troponin negative, EKG with no ischemic changes, chest x-ray shows no acute disease. Patient chest pain appears atypical and likely pleuritic but given personal history of coronary artery disease patient is placed on observation for further work-up for ACS. Allergies No Known Allergies Allergy (Verified 08/16/18 01:17) Home Medications: Aspirin [Adult Aspirin] 81 mg PO DAILY 07/31/18 Albuterol Sulfate [Proair Hfa] 1 puff IH Q3H PRN 08/16/18 Acetaminophen [Acetaminophen Extra Strength] 2 tab PO BID PRN 03/09/22 Cyanocobalamin (Vitamin B-12) [Vitamin B-12] 1 tab PO DAILY 03/09/22 Omeprazole Magnesium [Prilosec Otc] 20 mg PO DAILY 03/09/22 Tiotropium Br/Olodaterol HCl [Stiolto Respimat Inhal [place]] 2 puff IH DAILY 03/09/22 Amlodipine [Norvasc*] 5 mg PO DAILY #30 tab 03/12/22 Ipratropium/Albuterol Sulfate [Iprat-Albut 0.5-3(2.5) mg/3 ml] 3 ml IH Q6HP PRN #60 ampul.neb 03/12/22 lisinopriL [Prinivil*] 10 mg PO DAILY #30 tab 03/12/22 Hydrocodone 5/APAP 325 [[place] 5/325] 1 tab PO Q6H PRN #12 tab 07/20/22 Thiamine HCl 100 mg PO DAILY #30 tab 07/20/22 predniSONE [Prednisone] 10 mg PO BID #8 tab 07/20/22 - Past Medical/Surgical History Diabetic: No -: Hypertension -: Coronary artery disease, stent -: COPD on home oxygen and chronic steroids -: hx Tobacco abuse -: GERD -: Gastric ulcers -: Alcohol abuse -: -: Stent placement Psychosocial/ Personal History: The patient is . She has 5 children. - Family History Mother -: Heart disease, Cancer - Social History Alcohol use: Yes CD- Drugs: Yes Caffeine use: Yes Review of Systems Other: Patient denied any fever, denied abdominal pain, denied any nausea or vomiting or diarrhea. Except as documented, all other systems reviewed and negative. Physical Examination - Physical Exam General: Alert, In no apparent distress, Oriented x3 HEENT: Mucous membr. moist/pink Neck: JVD not distended Respiratory: Clear to auscultation bilaterally, Diminished (Bilateral) Cardiovascular: No edema, Regular rate/rhythm, Normal S1 S2 Capillary refill: <2 Seconds Gastrointestinal: Normal bowel sounds, Soft and benign, Non-distended, No tenderness Musculoskeletal: No swelling, No tenderness Integumentary: No rashes, No cyanosis Neurological: Normal speech, Normal strength at 5/5 x4 extr, Cranial nerves 3-12 intact Lymphatics: No axilla or inguinal lymphadenopathy - Studies Laboratory Data (last 24 hrs) 09/12/22 09:20: PT 9.5, INR 0.86 09/12/22 09:20: WBC 7.00, Hgb 14.6, Hct 43.6, Plt Count 362 09/12/22 09:20: Sodium 132 L, Potassium 4.5, BUN 5 L, Creatinine 0.40 L, Glucose 126 H, Magnesium 1.9, Total Bilirubin 0.2, AST 25, ALT 27, Alkaline Phosphatase 121 H Assessment and Plan - Problems (Diagnosis) (1) Chest pain Onset Date: 12/22/17 Current Visit: No Status: Acute Qualifiers: Chest pain type: chest pain on breathing Qualified Code(s): R07.1 - Chest pain on breathing; R07.81 - Pleurodynia (2) COPD (chronic obstructive pulmonary disease) Current Visit: No Status: Acute Qualifiers: COPD type: emphysema Emphysema type: unspecified Qualified Code(s): J43.9 - Emphysema, unspecified (3) Chronic respiratory failure with hypoxia Current Visit: No Status: Acute (4) Coronary artery disease Current Visit: No Status: Chronic Qualifiers: Coronary Disease-Associated Artery/Lesion type: [place] artery [place] vs. transplanted heart: [place] heart Associated angina: without angina Qualified Code(s): I25.10 - Atherosclerotic heart disease of [place] coronary artery without angina pectoris (5) GERD (gastroesophageal reflux disease) Onset Date: 01/20/17 Current Visit: No Status: Suspected Qualifiers: Esophagitis presence: without esophagitis Qualified Code(s): K21.9 - Gastro-esophageal reflux disease without esophagitis - Plan Place under observation on the medical floor. Continue to trend troponin. Patient chest pain appears atypical and likely secondary to pleurisy. Given patient's CAD risk factors including personal history, would recommend stress test in a.m. if her troponin trend negative. Continue bronchodilators for COPD. Continue home dose steroid. Aspirin. No beta-blockers for now given history of advanced COPD. Check lipid profile and start statin. Reconcile and continue other home medications. - Advance Directives Does patient have a Living Will: No Does patient have a Durable POA for Healthcare: Yes
[2022-09-12] MEDS ORDERED: NITROGLYCERIN 0.4 MG/TAB SL PRN (16:33)
[2022-09-12 17:03] VITALS: BMI 24.5
[2022-09-12 18:16] LABS: Troponin High Sensitivity 11.4 pg/mL (<58.9)
[2022-09-12] MEDS: MORPHINE 2 MG/ML SYR IV PRN (18:59)
[2022-09-13] MEDS: MORPHINE 2 MG/ML SYR IV PRN ×2 (03:28→09:32)
[2022-09-13 03:56] LABS: Absolute Lymphocytes (CBC) 2.4 K/uL (0.7-4.9); Hematocrit 37.9 % (36.0-45.0); Lymphocytes % 30.6 % (15.3-44.8); MCV 93.7 fL (80-100); MPV 6.9 fL (7.6-11.3); RBC Red Blood Cell Count 4.04 M/uL (3.86-4.86)
[2022-09-13 04:13] LABS: Potassium 4.2 mmol/L (3.5-5.1)
[2022-09-13 08:34] VITALS: BP 181/63; TEMP 97.8
[2022-09-13] MEDS ORDERED: ASPIRIN EC 81 MG TAB PO SCH (09:00)
[2022-09-13] MEDS ORDERED: ENOXAPARIN 40 MG/0.4 ML SQ SCH (09:00)
[2022-09-13 10:57] VITALS: O2SAT 95
--- NOTE | 2022-09-13 12:42 | P.DS ---
Admission Date: 09/12/22 Discharge Date: 09/13/22 Discharge Condition: FAIR Reason for Admission: Chest pain - Problems (1) Chest pain Onset Date: 12/22/17 Current Visit: No Status: Acute Qualifiers: Chest pain type: chest pain on breathing Qualified Code(s): R07.1 - Chest pain on breathing; R07.81 - Pleurodynia (2) COPD (chronic obstructive pulmonary disease) Current Visit: No Status: Acute Qualifiers: COPD type: emphysema Emphysema type: unspecified Qualified Code(s): J43.9 - Emphysema, unspecified (3) Chronic respiratory failure with hypoxia Current Visit: No Status: Acute (4) Coronary artery disease Current Visit: No Status: Chronic Qualifiers: Coronary Disease-Associated Artery/Lesion type: [place] artery [place] vs. transplanted heart: [place] heart Associated angina: without angina Qualified Code(s): I25.10 - Atherosclerotic heart disease of [place] coronary artery without angina pectoris (5) GERD (gastroesophageal reflux disease) Onset Date: 01/20/17 Current Visit: No Status: Suspected Qualifiers: Esophagitis presence: without esophagitis Qualified Code(s): K21.9 - Gastro-esophageal reflux disease without esophagitis Brief History of Present Illness: 61-year-old woman with a history of COPD and coronary artery disease status post stent several years ago presented to the emergency department with a complaint of chest pain of onset this morning. Patient report intermittent chest pain located in bilateral flanks and in-between shoulder blades that has been present for a month, worse with deep breathing and coughing. She stated her pain became much worse today precipitated by an argument with her daughter. She described his pain as worse with deep breathing and coughing. She has a history of COPD and chronic respiratory failure on oxygen by nasal cannula. No known relieving factors. Work-up in the emergency department has been unremarkable, initial troponin negative, EKG with no ischemic changes, chest x-ray shows no acute disease. Patient chest pain appears atypical and likely pleuritic but given personal history of coronary artery disease patient is placed on observation for further work-up for ACS. Hospital Course: Patient placed on observation on medical floor. Troponin trended negative. Patient was complaining of shortness of breath related to her COPD which is chronic. She also reported bilateral flank pain only with coughing or deep breathing. ACS has been ruled out. Patient is informed to follow-up with cardiology to [facility] as outpatient for arrangement for stress test. Dr. Guzman made aware. She is also prescribed prednisone and a nebulizer for her COPD. Patient deemed stable for discharge. Vital Signs/Physical Exam: Temp Pulse Resp BP Pulse Ox 97.8 F 88 16 181/63 H 95 09/13/22 08:00 09/13/22 08:00 09/13/22 09:32 09/13/22 08:00 09/13/22 09:32 General: Alert, In no apparent distress HEENT: Mucous membr. moist/pink Neck: JVD not distended Respiratory: Diminished, Other (No crackles or wheezes) Cardiovascular: No edema, Regular rate/rhythm, Normal S1 S2 Gastrointestinal: Normal bowel sounds, Soft and benign, Non-distended, No t enderness Musculoskeletal: No swelling Integumentary: No rashes, No cyanosis Neurological: Normal strength at 5/5 x4 extr Laboratory Data at Discharge: WBC 7.90 K/uL (4.3-10.9) 09/13/22 03:23 Hgb 12.7 g/dL (12.0-15.0) D 09/13/22 03:23 Hct 37.9 % (36.0-45.0) 09/13/22 03:23 Plt Count 263 K/uL (152-406) D 09/13/22 03:23 PT 9.5 SECONDS (9.5-12.5) 09/12/22 09:20 INR 0.86 09/12/22 09:20 Sodium 136 mmol/L (136-145) D 09/13/22 03:23 Potassium 4.2 mmol/L (3.5-5.1) 09/13/22 03:23 BUN 10 mg/dL (7-18) 09/13/22 03:23 Creatinine 0.42 mg/dL (0.55-1.02) L 09/13/22 03:23 Glucose 107 mg/dL (74-106) H 09/13/22 03:23 Magnesium 1.9 mg/dL (1.6-2.4) 09/12/22 09:20 Total Bilirubin 0.2 mg/dL (0.2-1.0) 09/12/22 09:20 AST 25 U/L (15-37) 09/12/22 09:20 ALT 27 U/L (13-56) 09/12/22 09:20 Alkaline Phosphatase 121 U/L (45-117) H 09/12/22 09:20 Triglycerides 232 mg/dL (<150) H 09/12/22 17:36 Cholesterol 225 mg/dL (<200) H 09/12/22 17:36 HDL Cholesterol 105 mg/dL (40-60) H 09/12/22 17:36 Cholesterol/HDL Ratio 2.14 09/12/22 17:36 Home Medications: Tiotropium Br/Olodaterol HCl [Stiolto Respimat Inhal [place]] 2 puff IH DAILY 03/09/22 Ipratropium/Albuterol Sulfate [Iprat-Albut 0.5-3(2.5) mg/3 ml] 3 ml IH Q6HP PRN #60 ampul.neb 03/12/22 Aspirin [Aspirin EC 81 MG] 81 mg PO DAILY #30 tab 09/13/22 Atorvastatin Calcium [Lipitor] 40 mg PO BEDTIME #30 tab 09/13/22 Hydrocodone 5/APAP 325 [[place] 5/325] 1 tab PO Q6H PRN #15 tab 09/13/22 Nebulizer 1 each IH QID #1 kit 09/13/22 predniSONE [Prednisone] 10 mg PO BID #10 tab 09/13/22 New Medications: Aspirin [Aspirin EC 81 MG] 81 mg PO DAILY #30 tab Atorvastatin Calcium [Lipitor] 40 mg PO BEDTIME #30 tab Nebulizer 1 each IH QID #1 kit Hydrocodone 5/APAP 325 [[place] 5/325] 1 tab PO Q6H PRN #15 tab PRN Reason: Pain predniSONE [Prednisone] 10 mg PO BID #10 tab Diet: AHA Activity: Ad cathy Followup: González Guzman MD [ACTIVE - CAN ADMIT] - 1-2 Weeks (Please [phone] for arrangement for stress test.)
--- NOTE | 2022-09-13 14:52 | EKG ---
Test Date: 2022-09-12 Test Time: 09:15:39 Associate Professor Of Biostatistics: HB MEASUREMENT RESULTS: Intervals: Rate: 87 WA: 146 QRSD: 72 QT: 364 QTc: 438 [place]: P: 50 WA: 146 QRS: 61 T: 51 INTERPRETIVE STATEMENTS: Normal sinus rhythm Cannot rule out Anterior infarct, age undetermined Abnormal ECG Compared to ECG 07/19/2022 02:01:37 Myocardial infarct finding now present ST (T wave) deviation no longer present Electronically Signed On 09-13-22 14:50:48 [employer]GEMENT ADVISER by González Guzman
--- NOTE | 2022-09-17 07:47 | ECHO ---
HEIGHT: 5 ft 1 in WEIGHT: 130 lb 0 oz DATE OF STUDY: 09/13/[address]: Yong Gaona MD 2-DIMENSIONAL: YES M.MODE: YES DOPPLER: YES COLOR FLOW: YES TDS: NO PORTABLE: YES DEFINITY: NO BUBBLE STUDY: NO DIAGNOSIS: CORONARY ARTERY DISEASE WITH CHEST PAIN CARDIAC HISTORY: CATHERIZATION: YES SURGERY: NO PROSTHETIC VALVE: NO PACEMAKER: NO MEASUREMENTS (cm) DIASTOLIC (NORMALS) SYSTOLIC (NORMALS) IVSd 1.0 (0.6-1.2) LA Diam 3.5 (1.9-4.0) LVEF 75% LVIDd 3.5 (3.5-5.7) LVIDs 2.0 (2.0-3.5) %FS 43% LVPWd 1.2 (0.6-1.2) Ao Diam 3.0 (2.0-3.7) 2 DIMENSIONAL ASSESSMENT: RIGHT ATRIUM: NORMAL LEFT ATRIUM: NORMAL RIGHT VENTRICLE: NORMAL LEFT VENTRICLE: NORMAL TRICUSPID VALVE: MILD TRICUSPID REGURGITATION MITRAL VALVE: NORMAL PULMONIC VALVE: NORMAL AORTIC VALVE: MILD AORTIC INSUFFICIENCY PERICARDIAL EFFUSION: NONE AORTIC ROOT: NORMAL LEFT VENTRICULAR WALL MOTION: NORMAL. DOPPLER/COLOR FLOW: SEE BELOW. COMMENTS: NORMAL LEFT VENTRICULAR EJECTION FRACTION 60-65%. NORMAL WALL MOTION. MILD TRICUSPID REGURGITATION. MILD AORTIC INSUFFICIENCY. TECHNOLOGIST: ACACIA LONG
== END 2022-09-13 14:32 | disposition home or self-care (01) ==
LOC: ER 09:13 → ERHOLD 13:16 → 2ND 16:18 → UNDODISOB 09-13 11:53
PROVIDERS: ADMIT Internal Medicine; ATTEND Internal Medicine
DX: R07.1 Chest pain on breathing (principal); J43.9 Emphysema, unspecified; J96.11 Chronic respiratory failure with hypoxia; I25.10 Atherosclerotic heart disease of native coronary artery without angina pectoris; K21.9 Gastro-esophageal reflux disease without esophagitis; Z95.5 Presence of coronary angioplasty implant and graft; Z20.822 Contact with and (suspected) exposure to COVID-19
CPT/HCPCS: 93005; 93306; 85025 ×2; 80048 ×2; 36415; 83735; 85610; 80061; 85379; 80076; 84484 ×3; 83880; 0240U; 71045; 94760 ×3; 96374; 99285; J7613; J7644; J1650; J2270 ×4

== ENCOUNTER 2022-10-16 16:09 | Observation (INO) | payer OTHER ==
--- OUTSIDE RECORDS SUMMARY | 2022-10-16 16:16 | XMS REPORT | Continuity of Care Document ---
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 small myocardial perfusion defect at rest or with stress(JACC. 2012;59(9):857-81.) Signed: Case Carpenter MDReport Verified Date/Time: 05/26/2018 16:02:19 Reading Location: [address] Reading Room C METABOLIC PANEL 2018-05-26 [...] NOT 1092) ACCURATE CRE ATININE CLEARANCE IN MO EDICTING GLOMERULAR FILT RATION RATE. ESTIMATED GFR [...] code = 413) MR, MRA, BRAIN, WITHOUT [id number] 22:00:00Reason for exam:->Ischemic Stroke EvaluationFINAL REPORT MR, [...] MDReport Verified Date/Time: 05/25/2018 22:00:39 Reading Location: [address] Body Reading Room MR, MRA, NECK, WITHOUT IV [id number] 22:00:00Reason for exam:- >Ischemic Stroke EvaluationFINAL REPORT [...] MDReport Verified Date/Time: 05/25/2018 22:00:39 Reading Location: [address] Body Reading Room MR, BRAIN, WITHOUT [id number] 22:00:00Reason for exam:- >Ischemic Stroke EvaluationFINAL REPORT [...] MDReport Verified Date/Time: 05/25/2018 22:00:39 Reading Location: [facility] B[facility] C[facility] Body Reading Room HEMOGLOBIN [id number] 09:45:00 Test Item Value Reference Range Interpretation Comments HEMOGLOBIN A1C (BEAKER) (test code = 5.4 % 4.3-6.1 368) LIPID [id number] 07:58:00 Test Item Value Reference Range Interpretation [...] High 160-189 Very High >=190TSH/FREE T4 IF [id number] 06:27:00 Test Item Value Reference Range Interpretation Comments THYROID STIMULATING HORMONE 4.27 uIU/mL 0.35-4.94 (BEAKER) (test code = 772) CREATINE KINASE (CK), TOTAL AND [id number] 06:13:00 Test Item Value Reference Range Interpretation Comments CREATINE KINASE TOTAL (BEAKER) 53 U/L 29-200 (test code = 380) CREATINE KINASE-MB (BEAKER) (test 3.9 ng/mL 0.0-6.6 code = 750) CREATINE KINASE-MB INDEX (BEAKER) 7.4 % (test code = 395) CK-MB Reference Range:<6.7 Normal6.7-10.0 Borderline>10.0 AbnormalTROPONIN [id number] 06:13:00 Test Item Value Reference Range Interpretation [...] acidosis, acute neurological disease, and persistent tachyarrhythmia.CALCIUM, [id number] 06:13:00 Test Item Value Reference Range Interpretation Comments CALCIUM IONIZED (BEAKER) (test 1.17 mmol/L 1.12-1.27 code = 698) PH, BLOOD (BEAKER) (test code = 7.33 1810) [id number] 06:05:00 Test Item Value Reference Range Interpretation Comments PHOSPHORUS (BEAKER) (test code = 4.1 mg/dL 2.3-4.7 604) [id number] 06:05:00 Test Item Value Reference Range Interpretation Comments MAGNESIUM (BEAKER) (test code = 2.0 mg/dL 1.6-2.6 627) CBC W/PLT COUNT & AUTO [id number] 05:44:00 Test Item Value Reference Range Interpretation [...] PERCENT (BEAKER) (test code = 2801) TROPONIN [id number] 01:50:00 Test Item Value Reference Range Interpretation [...] acute neurological disease, and persistent tachyarrhythmia.BASIC METABOLIC [id number] 22:36:00 Test Item Value Reference Range Interpretation [...] PATIEN TS. CREATINE KINASE (CK), TOTAL AND [id number] 21:46:00 Test Item Value Reference Range Interpretation [...] mechanical heart valves.RAD, CHEST, 1 VIEW, NON [id number] 20:22:00Reason for exam:->SOBShould this be performed at [...] MDReport Verified Date/Time: 05/24/2018 20:22:32 Reading Location: [address] Reading Room
[2022-10-16 16:56] LABS: Protime INR 0.85
[2022-10-16 17:06] LABS: Absolute Lymphocytes (CBC) 3.5 K/uL (0.7-4.9); Hematocrit 41.7 % (36.0-45.0); Lymphocytes % 30.1 % (15.3-44.8); MCV 93.6 fL (80-100); MPV 6.8 fL (7.6-11.3); RBC Red Blood Cell Count 4.45 M/uL (3.86-4.86)
[2022-10-16 17:10] LABS: Albumin 3.2 g/dL (3.4-5.0); Bilirubin Direct 0.1 mg/dL (0-0.2); Bilirubin Total 0.5 mg/dL (0.2-1.0); Potassium 3.6 mmol/L (3.5-5.1); Protein, Total 6.7 g/dL (6.4-8.2); Troponin High Sensitivity 11.1 pg/mL (<58.9)
--- NOTE | 2022-10-16 17:19 | RAD REPORT ---
EXAM DESCRIPTION: rPosper Single View10/16/2022 5:06 pm CLINICAL HISTORY: Shortness of breath COMPARISON: August 2022 FINDINGS: Lungs are mildly hyperaerated. The lungs appear clear of acute infiltrate. The heart is normal size IMPRESSION: No acute abnormalities displayed
[2022-10-16] MEDS ORDERED: METHYLPREDNISOLONE 125 MG INJ ONE (17:35)
[2022-10-16] MEDS ORDERED: MAGNESIUM SULFATE 1 gm IVPB 1 GM/100 ML BAG IV ONE (17:36)
[2022-10-16] MEDS ORDERED: LEVALBUTEROL 1.25 MG/3 ML NEB ONE ×2 (17:36→20:31)
--- NOTE | 2022-10-16 19:38 | ER ---
Nurse's Notes [facility] Name: Ansley Henderson Age: 61 yrs Sex: Female : 1960 Arrival Date: 10/16/2022 Time: 16:10 Bed External Waiting Private MD: Diagnosis: COPD/ Chronic obstructive pulmonary disease with (acute) exacerbation Presentation: 10/16 16:11 Chief complaint: EMS states: Pt c/o SOB and back pain x 1 week, hx of COPD, room air ph Spo2 96%, BP elevated at 200s systolic, pt states that she has been out of her prescriptions for multiple months, other VSS. Coronavirus screen: Vaccine status: Patient reports being unvaccinated. Ebola Screen: No symptoms or risks identified at this time. Initial Sepsis Screen: Does the patient meet any 2 criteria? No. Patient's initial sepsis screen is negative. Does the patient have a suspected source of infection? No. Patient's initial sepsis screen is negative. Risk Assessment: Do you want to hurt yourself or someone else? Patient reports no desire to harm self or others. Onset of symptoms was October 16, 2022. 16:11 Method Of Arrival: EMS: [facility] ph 16:11 Acuity: ENMANUEL 2 ph Historical: - Allergies: 16:14 No Known Allergies; ph - Home Meds: 16:14 albuterol sulfate 90 mcg/actuation Inhl HFAA 1 puff every 4 hours [Active]; aspirin 81 ph mg Oral TbEC 1 tab once daily [Active]; lisinopril 20 mg Oral tab 1 tab once daily [Active]; omeprazole 40 mg Oral cpDR 1 cap once daily [Active]; prednisone 20 mg Oral tab 1 tab 2 times per day [Active]; ProAir HFA 90 mcg/actuation inhalation HFAA [Active]; ranitidine HCl 150 mg Oral tab 1 tab once daily [Active]; Thiamine Oral [Active]; tiotropium bromide inhalation once daily [Active]; tramadol 50 mg Oral tab 1 tab twice a day [Active]; - PMHx: 16:14 Alcoholism; CAD; COPD; CVA; GERD; HEART STENT; Hypertension; ph - Immunization history:: Adult Immunizations unknown. - Social history:: Smoking status: Patient/guardian denies using tobacco, the patient reports quitting approximately 6 years ago. Screenin:15 Abuse screen: Denies threats or abuse. Denies injuries from another. Nutritional ph screening: No deficits noted. Tuberculosis screening: No symptoms or risk factors identified. 17:51 [facility] ED Fall Risk Assessment (Adult) History of falling in the last 3 months, ph including since admission No falls in past 3 months (0 pts) Confusion or Disorientation No (0 pts) Intoxicated or Sedated No (0 pts) Impaired Gait No (0 pts) Mobility Assist Device Used No (0 pt) Altered Elimination No (0 pt) Score/Fall Risk Level 0 - 2 = Low Risk Oriented to surroundings, Maintained a safe environment, Hourly rounding (assess needs \T\ fall precautionary measures) done. Assessment: 16:30 General: Appears in no apparent distress. uncomfortable, Behavior is calm, cooperative, ph appropriate for age, Denies fever, feeling ill. Pain: Complains of pain in mid back area. Neuro: Level of Consciousness is awake, alert, obeys commands, Oriented to person, place, time, situation. Cardiovascular: Reports shortness of breath, Denies chest pain, Capillary refill < 3 seconds in bilateral fingers Patient's skin is warm and dry. Rhythm is regular. Respiratory: Reports shortness of breath at rest on exertion Airway is patent Respiratory effort is even, unlabored, Respiratory pattern is regular, symmetrical, Breath sounds are clear bilaterally. GI: No signs and/or symptoms were reported involving the gastrointestinal system. Derm: Skin is healthy with good turgor, Skin is pink, warm \T\ dry. Musculoskeletal: Circulation, motion, and sensation intact. Range of motion: intact in all extremities. 17:30 Reassessment: Patient appears in no apparent distress at this time. Patient and/or eh3 family updated on plan of care and expected duration. Pain level reassessed. Patient is alert, oriented x 3, equal unlabored respirations, skin warm/dry/pink. 18:30 Reassessment: Patient appears in no apparent distress at this time. Patient and/or eh3 family updated on plan of care and expected duration. Pain level reassessed. Patient is alert, oriented x 3, equal unlabored respirations, skin warm/dry/pink. 19:30 Reassessment: Patient appears in no apparent distress at this time. Patient and/or eh3 family updated on plan of care and expected duration. Pain level reassessed. Patient is alert, oriented x 3, equal unlabored respirations, skin warm/dry/pink. 19:37 Reassessment: After ambulating to restroom O2 sat is 89% on room air. 3 20:30 Reassessment: Patient appears in no apparent distress at this time. Patient and/or 3 family updated on plan of care and expected duration. Pain level reassessed. Patient is alert, oriented x 3, equal unlabored respirations, skin warm/dry/pink. Vital Signs: 16:11 BP 214 / 105; Pulse 88; Resp 24; Temp 97.9(O); Pulse Ox 96% on R/A; Weight 61.23 kg; ph Height 5 ft. 1 in. (154.94 cm); 17:50 BP 208 / 98; Pulse 89; Resp 18; Pulse Ox 99% on Nebulizer Mask; ph 19:00 BP 173 / 77; Pulse 106; Resp 20; Pulse Ox 93% on R/A; eh3 20:30 BP 162 / 65; Pulse 115; Resp 18; Pulse Ox 97% on Nebulizer Mask; eh3 16:11 Body Mass Index 25.51 (61.23 kg, 154.94 cm) ph ED Course: 16:10 Patient arrived in ED. ph 16:13 Luis Jeong PA is PHCP. [facility] 16:13 Charlie Vásquez MD is Attending Physician. [facility] 16:14 Triage completed. ph 16:14 Arm band placed on Patient placed in an exam room, on a stretcher, on pulse oximetry. ph 16:16 Patient has correct armband on for positive identification. Bed in low position. Call light in reach. Side rails up X 1. wreath inspector on. Pulse ox on. NIBP on. 16:39 Initial lab(s) drawn, by de, sent to lab. EKG done, by ED staff, reviewed by Luis em1 Jean-Paul LANDIS. Inserted saline lock: 22 gauge in left antecubital area, using aseptic technique. Blood collected. 17:08 XRAY Chest (1 view) In Process Unspecified. EDMS 17:12 Key Pickens, MESHA is Primary Nurse. ph 19:37 Philippe Salinas MD is Hospitalizing Provider. [facility] 19:51 ABG: ok for vbg Sent. eh3 19:59 COVID-19/FLU A+B Sent. eh3 10/17 19:20 Attending Physician role handed off by Charlie Vásquez MD 19:20 PHCP role handed off by Luis Jeong PA Administered Medications: 10/16 09:42 Drug: hydrALAZINE 10 mg Route: IVP; Site: left antecubital; eh3 20:30 Follow up: Response: No adverse reaction eh3 17:47 Drug: Magnesium Sulfate 1 grams Route: IVPB; Infused Over: 1 hrs; Site: left ph antecubital; 19:00 Follow up: Response: No adverse reaction; IV Status: Completed infusion; IV Intake: eh3 100ml 17:48 Drug: SOLU-Medrol (methylPrednisoLONE) 125 mg Route: IVP; Site: left antecubital; ph 19:00 Follow up: Response: No adverse reaction eh3 17:48 Drug: Xopenex (levalbuterol) (3) 1.25 mg Route: Inhalation; ph 19:00 Follow up: Response: No adverse reaction eh3 20:30 Drug: morphine 2 mg Route: IVP; Infused Over: 4 mins; Site: left antecubital; eh3 21:00 Follow up: Response: Pain is decreased eh3 20:55 Drug: Xopenex (levalbuterol) 1.25 mg Route: Inhalation; eh3 Intake: 19:00 IV: 100ml; Total: 100ml. eh3 Outcome: 19:38 Decision to Hospitalize by Provider. [facility] 21:51 Patient left the ED. kl Signatures: Dispatcher [employer] EDMS Yoko Reaves RN RN kl Mickail, Joel, PA PA jmm Martinez, Eric em1 Zenaida Hewitt RN RN ss Hall, Patricia, RN RN Ginette Pickens RN RN eh3 Corrections: (The following items were deleted from the chart) 10/17 19:26 19:25 Patient left the ED. 3 eh3
--- NOTE | 2022-10-16 19:39 | EDPHYS ---
Physician Documentation [facility] Name: Ansley Henderson Age: 61 yrs Sex: Female : 1960 Arrival Date: 10/16/2022 Time: 16:10 Bed External Waiting Private MD: ED Physician HPI: 10/16 16:15 This 61 yrs old Female presents to ER via EMS with complaints of Shortness Of Breath, jmm Back Pain. 16:15 The patient has shortness of breath at rest. Onset: The symptoms/episode began/occurred jmm gradually, 1 week(s) ago. Duration: The symptoms are continuous, and are steadily getting worse. The patient's shortness of breath is aggravated by nothing, is alleviated by nothing. Associated signs and symptoms: Pertinent negatives: chest pain. The patient has experienced similar episodes in the past. Historical: - Allergies: 16:14 No Known Allergies; ph - Home Meds: 16:14 albuterol sulfate 90 mcg/actuation Inhl HFAA 1 puff every 4 hours [Active]; aspirin 81 ph mg Oral TbEC 1 tab once daily [Active]; lisinopril 20 mg Oral tab 1 tab once daily [Active]; omeprazole 40 mg Oral cpDR 1 cap once daily [Active]; prednisone 20 mg Oral tab 1 tab 2 times per day [Active]; ProAir HFA 90 mcg/actuation inhalation HFAA [Active]; ranitidine HCl 150 mg Oral tab 1 tab once daily [Active]; Thiamine Oral [Active]; tiotropium bromide inhalation once daily [Active]; tramadol 50 mg Oral tab 1 tab twice a day [Active]; - PMHx: 16:14 Alcoholism; CAD; COPD; CVA; GERD; HEART STENT; Hypertension; ph - Immunization history:: Adult Immunizations unknown. - Social history:: Smoking status: Patient/guardian denies using tobacco, the patient reports quitting approximately 6 years ago. ROS: 16:15 Constitutional: Negative for fever, chills, and weight loss, Cardiovascular: Negative jmm for chest pain, palpitations, and edema. 16:15 Respiratory: Positive for cough, shortness of breath. 16:15 All other systems are negative. Exam: 16:15 Constitutional: This is a well developed, well nourished patient who is awake, alert, jmm and in no acute distress. Head/Face: atraumatic. Eyes: EOMI, no conjunctival erythema appreciated ENT: Moist Mucus Membranes Neck: Trachea midline, Supple Chest/axilla: Normal chest wall appearance and motion. Cardiovascular: Regular rate and rhythm. No edema appreciated Respiratory: Normal respirations, no respiratory distress appreciated 16:15 Back: Normal ROM Skin: General appearance color normal MS/ Extremity: Moves all extremities, no obvious deformities appreciated, no edema noted to the lower extremities Neuro: Awake and alert Psych: Behavior is normal, Mood is normal, Patient is cooperative and pleasant 16:15 Abdomen/GI: Inspection: abdomen appears normal, Bowel sounds: normal, Palpation: soft, nontender, in all quadrants. Vital Signs: 16:11 BP 214 / 105; Pulse 88; Resp 24; Temp 97.9(O); Pulse Ox 96% on R/A; Weight 61.23 kg; ph Height 5 ft. 1 in. (154.94 cm); 17:50 BP 208 / 98; Pulse 89; Resp 18; Pulse Ox 99% on Nebulizer Mask; ph 19:00 BP 173 / 77; Pulse 106; Resp 20; Pulse Ox 93% on R/A; eh3 20:30 BP 162 / 65; Pulse 115; Resp 18; Pulse Ox 97% on Nebulizer Mask; eh3 16:11 Body Mass Index 25.51 (61.23 kg, 154.94 cm) ph MDM: 16:15 Patient medically screened. [facility] 17:10 Data reviewed: vital signs, nurses notes. [facility] 19:36 Differential diagnosis: Pneumonia, COPD, myocardial infarction. Consideration of [facility] Admission/Observation Patient was admitted/placed on observation. Management of patient was discussed with the following: Hospitalist: Manuel Andrade. I considered the following discharge prescriptions or medication management in the emergency department Medications were administered in the Emergency Department. See MAR. Independent interpretation of the following test(s) in the Emergency Department X-Ray: My interpretation is No infiltrate appreciated, COPD. Counseling: I had a detailed discussion with the patient and/or guardian regarding: the historical points, exam findings, and any diagnostic results supporting the discharge/admit diagnosis, lab results, radiology results, the need for further work-up and treatment in the hospital. 10/16 16:16 Order name: Basic Metabolic Panel; Complete Time: 17:[address] [facility] 10/16 16:16 Order name: CBC with Diff; Complete Time: 17:[address] [facility] 10/16 16:16 Order name: LFT's; Complete Time: 17:[address] [facility] 10/16 16:16 Order name: Magnesium; Complete Time: 17:[address] [facility] 10/16 16:16 Order name: NT PRO-BNP; Complete Time: 17:[address] [facility] 10/16 16:16 Order name: PT-INR; Complete Time: 17:[address] [facility] 10/16 16:16 Order name: Troponin HS; Complete Time: 17:[address] [facility] 10/16 16:16 Order name: XRAY Chest (1 view); Complete Time: 17:[address] [facility] 10/16 19:43 Order name: ABG: ok for vbg; Complete Time: 21:30 rt 10/16 19:44 Order name: COVID-19/FLU A+B; Complete Time: 20:52 la1 10/16 16:16 Order name: EKG; Complete Time: 16:[address] [facility] 10/16 16:16 Order name: Cardiac monitoring; Complete Time: 17:[address] [facility] 10/16 16:16 Order name: EKG - Nurse/Tech; Complete Time: 16:[address] [facility] 10/16 16:16 Order name: IV Saline Lock; Complete Time: 16:[address] [facility] 10/16 16:16 Order name: Labs collected and sent; Complete Time: 16:[address] [facility] 10/16 16:16 Order name: O2 Per Protocol; Complete Time: 16:[address] [facility] 10/16 16:16 Order name: O2 Sat Monitoring; Complete Time: 16:[address] [facility] 10/16 18:21 Order name: Misc. Order: ambulate o2; Complete Time: 19:37 jm Administered Medications: 09:42 Drug: hydrALAZINE 10 mg Route: IVP; Site: left antecubital; eh3 20:30 Follow up: Response: No adverse reaction eh3 17:47 Drug: Magnesium Sulfate 1 grams Route: IVPB; Infused Over: 1 hrs; Site: left ph antecubital; 19:00 Follow up: Response: No adverse reaction; IV Status: Completed infusion; IV Intake: eh3 100ml 17:48 Drug: SOLU-Medrol (methylPrednisoLONE) 125 mg Route: IVP; Site: left antecubital; ph 19:00 Follow up: Response: No adverse reaction eh3 17:48 Drug: Xopenex (levalbuterol) (3) 1.25 mg Route: Inhalation; ph 19:00 Follow up: Response: No adverse reaction eh3 20:30 Drug: morphine 2 mg Route: IVP; Infused Over: 4 mins; Site: left antecubital; eh3 21:00 Follow up: Response: Pain is decreased eh3 20:55 Drug: Xopenex (levalbuterol) 1.25 mg Route: Inhalation; eh3 Disposition Summary: 10/16/22 19:38 Hospitalization Ordered Hospitalization Status: Inpatient Admission [facility] Provider: Philippe Salinas Location: Telemetry/MedSurg (Inpatient) [facility] Condition: Stable [facility] Problem: an acute exacerbation jm Symptoms: are unchanged [facility] Bed/Room Type: Standard [facility] Room Assignment: 425(10/16/22 20:46) eb1 Diagnosis - COPD/ Chronic obstructive pulmonary disease with (acute) exacerbation [facility] Forms: - Medication Reconciliation Form [facility] - SBAR form [facility] Signatures: Dispatcher [employer] EDMS Luis Jeong PA PA [facility] Manuel Andrade, ELECTRON BEAM PHOTO MASK MAKER-C ELECTRON BEAM PHOTO MASK MAKER-Cla1 Key Pickens RN RN Danita Valentine RN RN eb1 Ginette Pickens RN RN 3 Corrections: (The following items were deleted from the chart) 20:46 19:38 [place] [id number]
[2022-10-16] MEDS ORDERED: MORPHINE 2 MG/ML SYR ONE (19:56)
--- NOTE | 2022-10-16 20:17 | P.HP ---
Certification for Inpatient Patient admitted to: Observation With expected LOS: <2 Midnights Patient will require the following post-hospital care: None Practitioner: I am a practitioner with admitting privileges, knowledge of patient current condition, hospital course, and medical plan of care. Services: Services provided to patient in accordance with Admission requirements found in Title 42 Section 412.3 of the Code of Federal Regulations <Manuel Andrade - Last Filed: 10/16/22 20:13> Patient History Date of Service: 10/16/22 Reason for admission: COPD exacerbation History of Present Illness: 61-year-old female with history of COPD on chronic steroids/home O2, CAD, CVA, GERD, hypertension presents to the emergency department for shortness of breath. She reports increasing dyspnea over the course of the last 1 week. She has also been out of her home medications for the past few months. In the ER she was given nebulizer treatments, IV steroids, IV magnesium still with significant dyspnea, expiratory wheezing. ED provider wishes to admit for further evaluation and management of COPD exacerbation. - Past Medical/Surgical History Diabetic: No -: Hypertension -: Coronary artery disease, stent -: COPD on home oxygen and chronic steroids -: hx Tobacco abuse -: GERD -: Gastric ulcers -: Alcohol abuse -: -: Stent placement Psychosocial/ Personal History: The patient is . She has 5 children. - Family History Mother -: Heart disease, Cancer - Social History Smoking Status: Former smoker Alcohol use: Yes CD- Drugs: No Caffeine use: Yes Place of Residence: Home <Manuel Andrade - Last Filed: 10/16/22 20:13> Date of Service: 10/17/22 <Philippe Salinas - Last Filed: 10/17/22 19:33> Allergies No Known Allergies Allergy (Verified 10/16/22 21:54) Home Medications: RX: Tiotropium Br/Olodaterol HCl [Stiolto Respimat Inhal [place]] 2 puff IH DAILY 03/09/22 RX: Ipratropium/Albuterol Sulfate [Iprat-Albut 0.5-3(2.5) mg/3 ml] 3 ml IH Q6HP PRN #60 ampul.neb 03/12/22 Aspirin [Aspirin EC 81 MG] 81 mg PO DAILY #30 tab 09/13/22 Acetaminophen [Tylenol Extra Strength] 1,250 mg PO Q6H 10/16/22 RX: Omeprazole 1 tab PO DAILY 10/16/22 RX: predniSONE [Prednisone] 10 mg PO DAILY 10/16/22 Review of Systems 10-point ROS is otherwise unremarkable Respiratory: Shortness of Breath, SOB with Excertion, Wheezing <Manuel Andrade - Last Filed: 10/16/22 20:13> Physical Examination - Physical Exam General: Alert, In no apparent distress, Oriented x3 HEENT: Atraumatic, PERRLA, Mucous membr. moist/pink, EOMI, Sclerae nonicteric Neck: Supple, 2+ carotid pulse no bruit, No LAD, Without JVD or thyroid abnormality Respiratory: Diminished, Expiratory wheezes Cardiovascular: Regular rate/rhythm, Normal S1 S2 Capillary refill: <2 Seconds Gastrointestinal: Normal bowel sounds, No tenderness Musculoskeletal: No tenderness Integumentary: No rashes Neurological: Normal speech, Normal strength at 5/5 x4 extr, Normal tone, Normal affect - Studies Laboratory Data (last 24 hrs) 10/16/22 16:30: PT 9.4 L, INR 0.85 10/16/22 16:30: WBC 11.50 H, Hgb 13.8, Hct 41.7, Plt Count 304 10/16/22 16:30: Sodium 134 L, Potassium 3.6, BUN 10, Creatinine 0.42 L, Glucose 86, Magnesium 2.0, Total Bilirubin 0.5, AST 14 L, ALT 22, Alkaline Phosphatase 107 <Manuel Andrade - Last Filed: 10/16/22 20:13> Assessment and Plan - Plan Assessment: COPD with exacerbationon home O2/chronic steroids Hypertension hyperlipidemia History of CAD/CVA GERD Plan: COPD with exacerbationon home O2/chronic steroids: Continue IV steroids, as needed nebs, ICS, supplemental oxygen. Daily room air sats on 3 L per nasal cannula. Pulmonology consult in place. Hypertension: Continue home meds once verified hyperlipidemia:Continue home meds once verified History of CAD/CVA: Continue ASA, other home meds GERD: Continue PPI DVT PPX: Lovenox Code status: Full Discharge Plan: Home Plan to discharge in: 24 Hours - Advance Directives Does patient have a Living Will: No Does patient have a Durable POA for Healthcare: Yes - Code Status/Comfort Care Code Status Assessed: Yes (Full code) Critical Care: No Time Spent Managing Pts Care (In Minutes): 55 <Manuel Andrade - Last Filed: 10/16/22 20:13> Physician Review: Patient Assessed, Agree with Above Assessment and Plan <Philippe Salinas - Last Filed: 10/17/22 19:33>
[2022-10-16 20:39] LABS: SARS-COV-2 RT PCR NEGATIVE (NEGATIVE)
[2022-10-16 21:25] LABS: Arterial Blood Carboxyhemoglob 0.9 % (0-1.5); Blood O2 Saturation 64.6 % (92-98.5)
[2022-10-16] MEDS ORDERED: IPRATROPIUM BROM 0.5MG/2.5ML NEB PRN (21:52)
[2022-10-16] MEDS ORDERED: BENZONATATE 100 MG CAP PO PRN (21:52)
[2022-10-16] MEDS: DULERA 200/5 (MOMETASONE/FORMOTEROL) INHALER IH SCH (21:52)
[2022-10-16] MEDS ORDERED: ONDANSETRON 4 MG/2 ML VIAL IV PRN (21:52)
[2022-10-16] MEDS ORDERED: ALBUTEROL 2.5 MG/3 ML NEB SOL NEB PRN (21:52)
[2022-10-16 22:17] VITALS: BMI 24.7
[2022-10-17] MEDS ORDERED: HYDROCODONE/APAP 5/325 MG TAB PO PRN (00:59)
[2022-10-17] MEDS ORDERED: HYDRALAZINE HCL 20 MG/ML VIAL IV PRN (00:59)
[2022-10-17] MEDS: METHYLPREDNISOLONE 40 MG INJ IV SCH ×2 (01:13→07:43)
[2022-10-17 03:28] LABS: Absolute Lymphocytes (CBC) 0.3 K/uL (0.7-4.9); Hematocrit 38.9 % (36.0-45.0); Lymphocytes % 3.2 % (15.3-44.8); MCV 94.3 fL (80-100); MPV 7.1 fL (7.6-11.3); RBC Red Blood Cell Count 4.12 M/uL (3.86-4.86)
[2022-10-17 03:34] LABS: Potassium 4.5 mmol/L (3.5-5.1)
[2022-10-17 04:25] LABS: Blood Morphology Comment NOT SEEN (NOT SEEN); Platelet Estimate ADEQ
[2022-10-17] MEDS: lisinopriL 10 MG TAB PO SCH (07:43)
[2022-10-17] MEDS: ENOXAPARIN 40 MG/0.4 ML SQ SCH (07:43)
[2022-10-17] MEDS: ASPIRIN EC 81 MG TAB PO SCH (07:43)
[2022-10-17] MEDS: DULERA 200/5 (MOMETASONE/FORMOTEROL) INHALER IH SCH ×2 (07:44→21:00)
[2022-10-17] MEDS ORDERED: INFLUENZA VACCINE (for 6+ mo) 0.5 ML DOSE IMVAC ONE (08:00)
[2022-10-17] MEDS: IPRATROPIUM BROM 0.5MG/2.5ML NEB SCH ×3 (08:52→19:35)
[2022-10-17] MEDS: predniSONE 20 MG TAB PO SCH ×2 (09:00→20:22)
[2022-10-17] MEDS: levoFLOXacin 750 MG TAB PO SCH (10:00)
[2022-10-17] MEDS: HYDROCODONE/APAP 10/325 TAB PO PRN ×2 (10:05→20:21)
--- NOTE | 2022-10-17 10:42 | RAD REPORT ---
EXAM DESCRIPTION: CT - Chest Angio - 10/17/2022 10:05 am CLINICAL HISTORY: R/O PE, chest pain, shortness of breath COMPARISON: Thorax Wo Con dated 07/19/2022 TECHNIQUE: Dynamically enhanced 3 mm thick images of the chest were obtained during administration o f approximately 150mL Isovue 370 IV contrast. Coronal and oblique MIP reconstruction images were gene rated and reviewed. Exam utilizes a protocol to evaluate the pulmonary arterial tree. All CT scans are performed using dose optimization technique as appropriate and may include automated exposure control or mA/KV adjustment according to patient size. FINDINGS: No pulmonary emboli are identified. Respiratory motion limits the far peripheral pulmonary artery branch assessment. However, no pulmonary emboli suspected. The aorta as imaged shows no acute or suspicious finding. No pericardial thickening or effusion. No infiltrate or mass in the lung parenchyma. No pleural effusion or pleural thickening. Emphysema ch anges are present in the lung parenchyma similar to prior imaging. No mediastinal or hilar suspicious masses. No chest wall masses or abnormal axillary lymphadenopathy. IMPRESSION: No pulmonary emboli identified. Lung parenchymal emphysema changes with no acute infiltrate or mass.
--- NOTE | 2022-10-17 10:45 | RAD REPORT ---
EXAM DESCRIPTION: CT - C Spine Wo Con - 10/17/2022 10:05 am CLINICAL HISTORY: Neck pain, possible compression fracture, radiculopathy COMPARISON: CT cervical spine study of 07/19/2022 TECHNIQUE: Axial 2 mm thick images of the cervical spine were obtained with sagittal and coronal rec onstruction images generated and reviewed. All CT scans are performed using dose optimization technique as appropriate and may include automated exposure control or mA/KV adjustment according to patient size. FINDINGS: Cervical bodies are normal in height. No compression fracture or acute cervical finding. T here is slight retrolisthesis of C5 on C6 with C5-6 disc space narrowing. This matches the prior stud y. No other measurable disc space narrowing. No pathologic bone process. Facet joint degenerative amna nges are present. No paraspinal mass or hematoma. Central canal detail is inherently limited. No gross evidence for a large disc herniation or other si gnificant central canal process. IMPRESSION: Negative CT cervical spine examination for fracture or acute finding.
--- NOTE | 2022-10-17 10:51 | RAD REPORT ---
EXAM DESCRIPTION: CT - Thoracic Spine W/o Cont - 10/17/2022 10:05 am CLINICAL HISTORY: Back pain COMPARISON: CT chest 07/19/2022 TECHNIQUE: Axial 2 mm thick images of the thoracic spine were obtained with sagittal and coronal rec onstruction images generated and reviewed. All CT scans are performed using dose optimization technique as appropriate and may include automated exposure control or mA/KV adjustment according to patient size. FINDINGS: Minimal T4 wedge compression has not change from the comparison study. T8 wedge compressio n fracture also stable. Since the prior examination mild wedge compression deformities are present in the T6 and T7 vertebral bodies. No retropulsion into the central canal. There is gas in the T5-6 and T6-7 disc spaces that is new from prior imaging. Age of the new fractures is indeterminate. Patholog ic component is not suspected. Pedicles and posterior elements are not involved. There is slightly ac centuated kyphosis now present. No other significant disc space narrowing or degenerative disc diseas e. No paraspinal mass or hematoma. Central canal detail is inherently limited on CT imaging. IMPRESSION: Since the July 2022 CT chest examination, the patient has developed mild wedge compr ession fractures in the T6 and T7 vertebrae. Height loss is approximately 20% in each vertebral body. Age of the fractures is indeterminate other than new from July 19. No pathologic changes suspected . Stable mild wedge compression fractures of T4 and T8. New degenerative disc disease T5-6 and T6-7.
--- NOTE | 2022-10-17 13:24 | P.CNS ---
Chief Complaint: COPD exacerbation Allergies No Known Allergies Allergy (Verified 10/16/22 21:54) Home Medications: Tiotropium Br/Olodaterol HCl [Stiolto Respimat Inhal [place]] 2 puff IH DAILY 03/09/22 Ipratropium/Albuterol Sulfate [Iprat-Albut 0.5-3(2.5) mg/3 ml] 3 ml IH Q6HP PRN #60 ampul.neb 03/12/22 Aspirin [Aspirin EC 81 MG] 81 mg PO DAILY #30 tab 09/13/22 Acetaminophen [Tylenol Extra Strength] 1,250 mg PO Q6H 10/16/22 Omeprazole 1 tab PO DAILY 10/16/22 predniSONE [Prednisone] 10 mg PO DAILY 10/16/22 - Past Medical/Surgical History Diabetic: No -: Hypertension -: Coronary artery disease, stent -: COPD on home oxygen and chronic steroids -: hx Tobacco abuse -: GERD -: Gastric ulcers -: Alcohol abuse -: -: Stent placement Psychosocial/ Personal History: The patient is . She has 5 children. - Family History Mother Medical History: Heart disease, Cancer - Social History Smoking Status: Current every day smoker Alcohol use: Yes CD- Drugs: No Caffeine use: Yes Place of Residence: Home Physical Examination Temp Pulse Resp BP Pulse Ox 97 F 95 H 19 167/72 H 96 10/17/22 12:00 10/17/22 12:00 10/17/22 12:00 10/17/22 12:00 10/17/22 12:00 Laboratory Data (last 24 hrs) 10/16/22 16:30: PT 9.4 L, INR 0.85 10/16/22 16:30: WBC 11.50 H, Hgb 13.8, Hct 41.7, Plt Count 304 10/16/22 16:30: Sodium 134 L, Potassium 3.6, BUN 10, Creatinine 0.42 L, Glucose 86, Magnesium 2.0, Total Bilirubin 0.5, AST 14 L, ALT 22, Alkaline Phosphatase 107
--- NOTE | 2022-10-17 19:37 | P.PN ---
Subjective Date of Service: 10/17/22 Chief Complaint: COPD exacerbation No acute events overnight. She reports persistent shortness of breath and dry cough. She denies any chest pain or palpitations. She reports persistent mid- back pain. Review of Systems 10-point ROS is otherwise unremarkable Respiratory: Cough, Dry, Shortness of Breath Musculoskeletal: Back Pain Physical Examination - Vital Signs Temperature: 97.7 F Blood Pressure: 153/66 Pulse: 85 Respirations: 18 Pulse Ox (%): 97 - Physical Exam General: Alert, In no apparent distress, Oriented x3 HEENT: Atraumatic, Mucous membr. moist/pink, EOMI, Sclerae nonicteric Neck: JVD not distended Respiratory: Diminished, Expiratory wheezes (end-expiratory) Cardiovascular: No edema, Regular rate/rhythm, Normal S1 S2, No gallops, No rubs, No murmurs Gastrointestinal: Normal bowel sounds, Soft and benign, Non-distended, No tenderness, No rebound, No guarding Musculoskeletal: No clubbing, Tenderness (mid-thoracic, lower-cervical point tenderness) Integumentary: No rashes Neurological: Normal speech, Normal affect Assessment And Plan - Plan # Acute Chronic Obstructive Pulmonary Disease Exacerbation # Chronic Respiratory Failure secondary to COPD on Home Oxygen 3 L - Evaluation thus far: - Physical exam = faint expiratory-wheezing throughout - Chest x-ray = "No acute abnormalities displayed" - CT chest angiogram = pending - Plan: - Pulmonary Medicine consulted and spoke with Dr. Lucero - recommendations appreciated - Bronchodilators and steroids per Pulm - Consulted Respiratory Therapy - Supplemental oxygen to maintain SpO2 > 92% - Assess inhaler technique one improved from COPD exacerbation # Severe Back Pain - Ordered CT cervical/thoracic spine to evaluate for compression fractures - PRN pain control # History of Coronary Artery Disease # History of Cerebrovascular Accident # Hypertension # Dyslipidemia # Gastroesophageal Reflux Disease - Continue home medications Philippe Salinas M.D.
[2022-10-18] MEDS: IPRATROPIUM BROM 0.5MG/2.5ML NEB SCH ×3 (01:30→13:51)
[2022-10-18 03:55] LABS: Potassium 4.9 mmol/L (3.5-5.1)
[2022-10-18] MEDS: ENOXAPARIN 40 MG/0.4 ML SQ SCH (08:06)
[2022-10-18] MEDS: lisinopriL 10 MG TAB PO SCH (08:06)
[2022-10-18] MEDS: ASPIRIN EC 81 MG TAB PO SCH (08:07)
[2022-10-18] MEDS: levoFLOXacin 750 MG TAB PO SCH (08:07)
[2022-10-18] MEDS: predniSONE 20 MG TAB PO SCH (08:07)
[2022-10-18] MEDS: DULERA 200/5 (MOMETASONE/FORMOTEROL) INHALER IH SCH (08:07)
[2022-10-18] MEDS: HYDROCODONE/APAP 10/325 TAB PO PRN ×2 (11:02→18:33)
--- NOTE | 2022-10-18 12:21 | P.PN ---
Subjective Date of Service: 10/18/22 Chief Complaint: COPD exacerbation No change in patient's condition she has a compression fracture of her thoracic spine complaining of pain also has a problem with her right arm has a chronic fracture still short of breath coughing wheezing Review of Systems General: Weakness Respiratory: Cough, Shortness of Breath Physical Examination - Vital Signs Temperature: 98.2 F Blood Pressure: 179/70 Pulse: 83 Respirations: 18 Pulse Ox (%): 100 - Physical Exam General: Alert, Oriented x3, Moderate distress Respiratory: Expiratory wheezes Cardiovascular: No edema, Regular rate/rhythm, Normal S1 S2 Gastrointestinal: Normal bowel sounds, Soft and benign, Non-distended Assessment And Plan - Current Problems (Diagnosis) (1) COPD (chronic obstructive pulmonary disease) Current Visit: No Status: Acute Plan: Patient is 61 years of age well-known to me history of chronic alcohol tobacco abuse she quit drinking recently frequent falls minute with chronic severe back pain from compression fractures currently stable conservative treatment Labs meds reviewed blood pressure elevated scheduled pain meds sickle therapy orthopedic consult no evidence of thromboembolism CT scan is negative blood pressure control increase lisinopril add low-dose spironolactone I suspect this is venous blood gases Qualifiers: COPD type: emphysema Emphysema type: unspecified Qualified Code(s): J43.9 - Emphysema, unspecified Physician Review: Patient Assessed, Agree with Above Assessment and Plan
--- NOTE | 2022-10-18 12:22 | P.CNS ---
Date of Consult: 10/17/22 Chief Complaint: COPD exacerbation History of Present Illness: Patient is 61 years of age well-known to me admitted with worsening dyspnea severe pain in her back area able to ambulate she has a history of chronic falls alcohol abuse he also had fractures of her right arm has not been able to seek any treatment complaining of coughing productive Allergies No Known Allergies Allergy (Verified 10/16/22 21:54) Home Medications: Tiotropium Br/Olodaterol HCl [Stiolto Respimat Inhal [place]] 2 puff IH DAILY 03/09/22 Ipratropium/Albuterol Sulfate [Iprat-Albut 0.5-3(2.5) mg/3 ml] 3 ml IH Q6HP PRN #60 ampul.neb 03/12/22 Aspirin [Aspirin EC 81 MG] 81 mg PO DAILY #30 tab 09/13/22 Acetaminophen [Tylenol Extra Strength] 1,250 mg PO Q6H 10/16/22 Omeprazole 1 tab PO DAILY 10/16/22 predniSONE [Prednisone] 10 mg PO DAILY 10/16/22 - Past Medical/Surgical History Diabetic: No -: Hypertension -: Coronary artery disease, stent -: COPD on home oxygen and chronic steroids -: hx Tobacco abuse -: GERD -: Gastric ulcers -: Alcohol abuse -: -: Stent placement Psychosocial/ Personal History: The patient is . She has 5 children. - Family History Mother Medical History: Heart disease, Cancer - Social History Smoking Status: Current every day smoker Alcohol use: Yes CD- Drugs: No Caffeine use: Yes Place of Residence: Home Review of Systems General: Weakness Respiratory: Cough, Shortness of Breath Musculoskeletal: Arm Pain Physical Examination Temp Pulse Resp BP Pulse Ox 98.2 F 83 18 179/70 H 100 10/18/22 12:20 10/18/22 12:20 10/18/22 12:20 10/18/22 12:20 10/18/22 12:20 General: Alert, In no apparent distress, Moderate distress Respiratory: Expiratory wheezes Cardiovascular: No edema, Regular rate/rhythm, Normal S1 S2 Gastrointestinal: Normal bowel sounds, Soft and benign, Non-distended - Problems (1) COPD (chronic obstructive pulmonary disease) Current Visit: No Status: Acute Plan: Patient is 61 years of age history of terminal COPD alcoholism frequent falls. With thoracic pain she does have compression fractures continue with conservative management resume her inhalers low-dose prednisone regular diet oxygenation stable history is reviewed white count is normal levofloxacin Qualifiers: COPD type: emphysema Emphysema type: unspecified Qualified Code(s): J43.9 - Emphysema, unspecified
[2022-10-18] MEDS ORDERED: SPIRONOLACTONE 25 MG TABLET PO SCH (12:28)
--- NOTE | 2022-10-18 15:22 | RAD REPORT ---
EXAM DESCRIPTION: RAD - Humerus Right - 10/18/2022 3:02 pm CLINICAL HISTORY: Right arm pain FINDINGS: Comminuted old moderately to markedly displaced fracture proximal to mid humerus. Nonunion of fracture fragments. Prominent angulation present at the fracture site. Lucencies are present throughout the bone. These may represent areas of focal osteoporosis. . If the patient has clinical symptoms to suggest osteomyelitis then MRI would be recommended
[2022-10-18 16:51] VITALS: BP 158/71; TEMP 97
--- NOTE | 2022-10-18 16:53 | P.DS ---
Admission Date: 10/16/22 Discharge Date: 10/18/22 Disposition: ROUTINE DISCHARGE Discharge Condition: GOOD Reason for Admission: COPD exacerbation Consultations: 1. Pulmonary Medicine 2. Orthopedic Surgery Hospital Course: DIAGNOSES: # Acute Chronic Obstructive Pulmonary Disease Exacerbation # Chronic Respiratory Failure secondary to COPD on Home Oxygen 3 L # Hypertensive Urgency # Severe Back Pain secondary to Mild T6-T7 Wedge Compression Fractures # Right Arm Pain secondary Old Communited Displaced Proximal/Mid Humerus Fracture # Osteoporosis # History of Coronary Artery Disease # History of Cerebrovascular Accident # Alcohol Use Disorder # Hypertension # Dyslipidemia # Gastroesophageal Reflux Disease HOSPITAL COURSE: Ms. Ansley Henderson is a 61 year old female with a past medical history significant for chronic respiratory failure secondary to chronic obstructive pulmonary disease on home oxygen, chronic right humerus fracture, coronary art alexus disease, history of cerebrovascular accident, alcohol use disorder, hypertension, dyslipidemia, and gastroesophageal reflux disease who was admitted to the [facility] on 10/16/2022 for shortness of breath. She was admitted to the Medicine service. Upon further evaluation, she was found to be in an acute COPD exacerbation. Her chest x-ray revealed, "no acute abnormalities displayed." Her CT chest angiogram revealed, "no pulmonary emboli identified. Lung parenchymal emphysema changes with no acute infiltrate or mass." Pulmonary Medicine was consulted and she was evaluated by Dr. Lucero. She was treated with bronchodilators and steroids, with significant improvement in her breathing. He has cleared her for discharge on her home home medications. He states that he will see her within the next week. Of note, during her stay, she reported significant back pain and right arm pain. She states that she has had a chronic fracture in her right humerus for over 6 years, which has not been surgically corrected. A CT of the cervical and thoracic spine was obtained. Her CT cervical spine revealed, "negative CT cervical spine examination for fracture or acute finding." CT thoracic spine revealed, "since the July 2022 CT chest examination, the patient has developed mild wedge compression fractures in the T6 and T7 vertebrae. Height loss is approximately 20% in each vertebral body. Age of the fractures is indeterminate other than new from July 19. No pathologic changes suspected. Stable mild wedge compression fractures of T4 and T8. New degenerative disc disease T5-6 and T6-7." She denied any alarm symptoms, specifically denying any saddle anesthesia, unilateral leg weakness, or urinary/bowel incontinence. A right humerus x-ray was obtained which revealed, "comminuted old moderately to markedly displaced fracture proximal to mid humerus. Nonunion of fracture fragments. Prominent angulation present at the fracture site. Lucencies are present throughout the bone. These may represent areas of focal osteoporosis." Orthopedic Surgery was consulted and her images were reviewed by Dr. Sutton. He has recommended discharge with outpatient follow-up in his clinic. On 10/18/2022, she was seen on rounds and deemed medically stable for discharge. She was discharged with instructions to schedule follow-up appointments with her PCP, with Pulmonology (Dr. Lucero), and with Orthopedic Surgery (Dr. Sutton). She was provided prescriptions for hydrochlorothiazide and hydrocodone-acetaminophen. She was given the opportunity to ask questions and re ported no further questions. Furthermore, all questions were answered to the best of my ability. Prior to the controlled substance prescription, a PDMP review was completed. Over the last 2 years, she has received 8 prescriptions from 3 prescribers to 2 pharmacies. Her opioid overdose risk score is 220. A copy of this discharge summary will be sent to the above providers to facilitate continuity of care. Today, I personally spent 35 minutes on her case, of which greater than 50% of the time was spent in patient education, counseling, and coordination of care as described above. - Physical Exam General: Alert, In no apparent distress, Oriented x3 HEENT: Atraumatic, EOMI, Sclerae nonicteric Neck: JVD not distended Respiratory: Diminished, clear to auscultation without wheezes, rhonchi, or rales Cardiovascular: No edema, Regular rate/rhythm, Normal S1 S2, No gallops, No rubs, No murmurs Gastrointestinal: Normal bowel sounds, Soft and benign, Non-distended, No tenderness, No rebound, No guarding Musculoskeletal: No clubbing, Tenderness (mid-thoracic, lower-cervical point tenderness, improved), Right upper extremity with skin intact. Right arm in splint. Integumentary: No rashes Neurological: Normal speech, Normal affect Vital Signs/Physical Exam: Temp Pulse Resp BP Pulse Ox 97 F 97 H 19 158/71 H 97 10/18/22 16:00 10/18/22 16:00 10/18/22 16:10/18/22 16:10/18/22 16:00 Laboratory Data at Discharge: WBC 9.80 K/uL (4.3-10.9) 10/17/22 02:55 Hgb 12.9 g/dL (12.0-15.0) 10/17/22 02:55 Hct 38.9 % (36.0-45.0) 10/17/22 02:55 Plt Count 251 K/uL (152-406) 10/17/22 02:55 PT 9.4 SECONDS (9.5-12.5) L 10/16/22 16:30 INR 0.85 10/16/22 16:30 Sodium 135 mmol/L (136-145) L 10/18/22 03:22 Potassium 4.9 mmol/L (3.5-5.1) 10/18/22 03:22 BUN 18 mg/dL (7-18) 10/18/22 03:22 Creatinine 0.55 mg/dL (0.55-1.02) 10/18/22 03:22 Glucose 169 mg/dL (74-106) H 10/18/22 03:22 Magnesium 2.0 mg/dL (1.6-2.4) 10/16/22 16:30 Total Bilirubin 0.5 mg/dL (0.2-1.0) 10/16/22 16:30 AST 14 U/L (15-37) L 10/16/22 16:30 ALT 22 U/L (13-56) 10/16/22 16:30 Alkaline Phosphatase 107 U/L (45-117) 10/16/22 16:30 Home Medications: Tiotropium Br/Olodaterol HCl [Stiolto Respimat Inhal [place]] 2 puff IH DAILY 03/09/22 Ipratropium/Albuterol Sulfate [Iprat-Albut 0.5-3(2.5) mg/3 ml] 3 ml IH Q6HP PRN #60 ampul.neb 03/12/22 Aspirin [Aspirin EC 81 MG] 81 mg PO DAILY #30 tab 09/13/22 Acetaminophen [Tylenol Extra Strength] 1,250 mg PO Q6H 10/16/22 Omeprazole 1 tab PO DAILY 10/16/22 predniSONE [Prednisone] 10 mg PO DAILY 10/16/22 Hydrocodone 5/APAP 325 [[place] 5/325] 1 tab PO Q6H PRN 3 Days #12 tab 10/18/22 hydroCHLOROthiazide [Hydrochlorothiazide*] 12.5 mg PO DAILY #30 cap 10/18/22 New Medications: hydroCHLOROthiazide [Hydrochlorothiazide*] 12.5 mg PO DAILY #30 cap Hydrocodone 5/APAP 325 [[place] 5/325] 1 tab PO Q6H PRN 3 Days #12 tab PRN Reason: Pain Scale 8-10 (Severe) Physician Discharge Instructions: 1. Please call and schedule a follow-up appointment with your PCP in 3-5 days 2. Please call and schedule a follow-up appointment with your Front Office Assistant (Dr. Lucero) in 3-5 days 3. Please call and schedule a follow-up appointment with Orthopedic Surgery (Dr. Sutton) in 3-5 days Diet: AHA Activity: Ad cathy Followup: Lloyd Sutton MD [ACTIVE - CAN ADMIT] - Sd Lucero MD [ACTIVE - CAN ADMIT] -
[2022-10-18] MEDS ORDERED: hydroCHLOROthiazide 12.5 MG CAP PO SCH (18:00)
[2022-10-18] MEDS ORDERED: THIAMINE HCL 100 MG TABLET PO SCH (21:00)
[2022-10-18] MEDS ORDERED: predniSONE 10 MG TAB PO SCH (21:00)
[2022-10-18 21:59] VITALS: O2SAT 98
[2022-10-19] MEDS ORDERED: lisinopriL 20 MG TAB PO SCH (09:00)
== END 2022-10-18 19:16 | disposition home or self-care (01) ==
LOC: ER 16:09 → ERHOLD 20:02 → 4TH 20:51
PROVIDERS: ADMIT Internal Medicine; ATTEND Internal Medicine
DX: J44.1 Chronic obstructive pulmonary disease with (acute) exacerbation (principal); J96.10 Chronic respiratory failure, unspecified whether with hypoxia or hypercapnia; I16.0 Hypertensive urgency; I25.10 Atherosclerotic heart disease of native coronary artery without angina pectoris; M79.621 Pain in right upper arm; S42.201G Unspecified fracture of upper end of right humerus, subsequent encounter for fracture with delayed healing; X58.XXXD Exposure to other specified factors, subsequent encounter; M48.54XA Collapsed vertebra, not elsewhere classified, thoracic region, initial encounter for fracture; K21.9 Gastro-esophageal reflux disease without esophagitis; I10 Essential (primary) hypertension; E78.5 Hyperlipidemia, unspecified; F10.90 Alcohol use, unspecified, uncomplicated; M54.9 Dorsalgia, unspecified; M81.0 Age-related osteoporosis without current pathological fracture; Z99.81 Dependence on supplemental oxygen; Z86.73 Personal history of transient ischemic attack (TIA), and cerebral infarction without residual deficits; Z91.81 History of falling; Z20.822 Contact with and (suspected) exposure to COVID-19; Z23 Encounter for immunization; Z72.0 Tobacco use; Z95.5 Presence of coronary angioplasty implant and graft
CPT/HCPCS: 96365; 93005; 85025 ×2; 80048 ×3; 36415 ×2; 83735; 85610; 80076; 84484; 83880; 0240U; 72125; 72128; 71275; 71045; 73060; 97116; 97161; 97530; 94010; 94640 ×6; 82805; 96375; 99285; Q9967; J0360; J7614 ×2; J7512 ×2; J7613; J7644 ×5; J1650 ×2; J3475; J2270; J3535; J2930; J2920 ×2; G0378

== ENCOUNTER 2023-04-24 23:59 | Emergency (ER) | payer OTHER ==
--- OUTSIDE RECORDS SUMMARY | 2023-04-25 00:14 | XMS REPORT | Continuity of Care Document ---
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 [facility] 1.2.840.114 [id number] Univers 21:39:45 22:49:00 [place] [id number] i ty of [place]2.[place] [phone] [facility] [address] 2020-01-16 2020-01-16 Emergency X Nilam CARRASCO [facility] ERT [id number] Univers 21:39:45 21:39:45 ity [facility] [place] [facility] Results Test Test Test Results Result Source [...] HUMERUS 2 VW 2020-11- Remote right humerus [facility] 27 fracture with [place] [facility] [...] HUMERUS 2 VW 2020-01- Her immobilization in [place] [address] the [facility]manzar brace and [facility] 15:05:29 arm sling she came in Bra counts include [facility] beds at the [facility] with are much better than she initially had with a coaptation splint. ?She has a midshaft humerus fracture with a butterfly fragment. MYOCARD 2018-05- FINAL REPORT PATIENT ID: MICAELA, [facility], [id number] PROCEDURE: PHARM, SPECT 16:02:00 Rest/Stress MYOCARDIAL PERFUSION SPECT with regadenoson\XA9\ CPT CODE: 80831 INDICATION: Chest pain HISTORY: Cardiac risk factors: [...] lung due to COPD. 6. No previous [facility] study for comparison. NONINVASIVE RISK STRATIFICATION: The above findings are considered low risk (<1% annual mortality rate) based on the following criterion:- Normal or small myocardial perfusion defect at rest or with stress(JACC. 2012;59(9):857-81.) Signed: Case Carpenter MDReport Verified Date/Time: 05/26/2018 16:02:19 Reading Location: [address] Reading Room C METABOLIC PANEL 2018-05-26 [...] NOT 1092) ACCURATE CRE ATININE CLEARANCE IN [place] EDICTING GLOMERULAR FILT RATION RATE. ESTIMATED GFR [...] code = 413) MR, MRA, BRAIN, WITHOUT [id number] 22:00:00Reason for exam:->Ischemic Stroke EvaluationFINAL REPORT MR, [...] MDReport Verified Date/Time: 05/25/2018 22:00:39 Reading Location: [address] Body Reading Room MR, MRA, NECK, WITHOUT IV [id number] 22:00:00Reason for exam:- >Ischemic Stroke EvaluationFINAL REPORT [...] MDReport Verified Date/Time: 05/25/2018 22:00:39 Reading Location: [facility] C013Y CT Body Reading Room MR, BRAIN, WITHOUT [id number] 22:00:00Reason for exam:- >Ischemic Stroke EvaluationFINAL REPORT [...] MDReport Verified Date/Time: 05/25/2018 22:00:39 Reading Location: [facility] B[facility] C013Y CT Body Reading Room HEMOGLOBIN [id number] 09:45:00 Test Item Value Reference Range Interpretation Comments HEMOGLOBIN A1C (BEAKER) (test code = 5.4 % 4.3-6.1 368) LIPID [id number] 07:58:00 Test Item Value Reference Range Interpretation [...] High 160-189 Very High >=190TSH/FREE T4 IF [id number] 06:27:00 Test Item Value Reference Range Interpretation Comments THYROID STIMULATING HORMONE 4.27 uIU/mL 0.35-4.94 (BEAKER) (test code = 772) CALCIUM, [id number] 06:13:00 Test Item Value Reference Range Interpretation Comments CALCIUM IONIZED (BEAKER) (test 1.17 mmol/L 1.12-1.27 code = 698) PH, BLOOD (BEAKER) (test code = 7.33 1810) CREATINE KINASE (CK), TOTAL AND [id number] 06:13:00 Test Item Value Reference Range Interpretation Comments CREATINE KINASE TOTAL (BEAKER) 53 U/L 29-200 (test code = 380) CREATINE KINASE-MB (BEAKER) (test 3.9 ng/mL 0.0-6.6 code = 750) CREATINE KINASE-MB INDEX (BEAKER) 7.4 % (test code = 395) CK-MB Reference Range:<6.7 Normal6.7-10.0 Borderline>10.0 AbnormalTROPONIN [id number] 06:13:00 Test Item Value Reference Range Interpretation [...] failure, acidosis, acute neurological disease, and persistent tachyarrhythmia.[id number] 06:05:00 Test Item Value Reference Range Interpretation Comments PHOSPHORUS (BEAKER) (test code = 4.1 mg/dL 2.3-4.7 604) [id number] 06:05:00 Test Item Value Reference Range Interpretation Comments MAGNESIUM (BEAKER) (test code = 2.0 mg/dL 1.6-2.6 627) CBC W/PLT COUNT & AUTO [id number] 05:44:00 Test Item Value Reference Range Interpretation [...] PERCENT (BEAKER) (test code = 2801) TROPONIN [id number] 01:50:00 Test Item Value Reference Range Interpretation [...] acute neurological disease, and persistent tachyarrhythmia.BASIC METABOLIC [id number] 22:36:00 Test Item Value Reference Range Interpretation [...] PATIEN TS. CREATINE KINASE (CK), TOTAL AND [id number] 21:46:00 Test Item Value Reference Range Interpretation [...] mechanical heart valves.RAD, CHEST, 1 VIEW, NON [id number] 20:22:00Reason for exam:->SOBShould this be performed at [...] is no acute bony abnormality. Signed: Jose Deckereport Verified Date/Time: 05/24/2018 20:22:32 Reading Location: [address] Reading Room
[2023-04-25 01:06] LABS: Protime INR 0.92
[2023-04-25 01:08] LABS: Absolute Lymphocytes (CBC) 5.4 K/uL (0.7-4.9); Hematocrit 41.1 % (36.0-45.0); Lymphocytes % 47.3 % (15.3-44.8); MCV 88.5 fL (80-100); MPV 6.9 fL (7.6-11.3); Platelets 302 thou/uL (152-406); RBC Red Blood Cell Count 4.64 M/uL (3.86-4.86)
[2023-04-25 01:19] LABS: Magnesium 2.1 mg/dL (1.6-2.4); Potassium 3.9 mEq/L (3.5-5.1); Troponin High Sensitivity 6.5 pg/mL (<58.9)
[2023-04-25] MEDS ORDERED: METHYLPREDNISOLONE 125 MG INJ ONE (01:56)
--- NOTE | 2023-04-25 03:45 | ER ---
Nurse's Notes [facility] Name: Ansley Henderson Age: 62 yrs Sex: Female : 1960 Arrival Date: 04/24/2023 Time: 23:59 Bed 4 Private MD: Diagnosis: Fall on same level, unspecified;Fracture of thoracic vertebra-T11 40% with retropulsion;Wedge compression fracture of unspecified thoracic vertebra;Alcohol abuse with intoxication Presentation: 04/25 00:18 Chief complaint: EMS states: MULTIPLE FALLS SINCE YESTERDAY. DENIES LOC. + ETOH. RIGHT rv KNEE AND RIGHT ELBOW PAIN. Care prior to arrival: None. Mechanism of Injury: Fall from standing position. Trauma event details: Injury occurred in the [facility], Injury occurred: at home. Injury occurred: April 25, 2023. 00:18 Acuity: ENMANUEL 2 rv 00:18 Method Of Arrival: EMS: [facility] rv 00:39 Coronavirus screen: At this time, the client does not indicate any symptoms associated rv with coronavirus-19. Ebola Screen: No symptoms or risks identified at this time. Initial Sepsis Screen: Does the patient meet any 2 criteria? No. Patient's initial sepsis screen is negative. Does the patient have a suspected source of infection? No. Patient's initial sepsis screen is negative. Risk Assessment: Do you want to hurt yourself or someone else? Patient reports no desire to harm self or others. Onset of symptoms was April 25, 2023. Trauma Activation: Not Applicable Physician: ED Physician; Name: ; Notified At: ; Arrived At: Physician: General Surgeon; Name: ; Notified At: ; Arrived At: Physician: Radiology; Name: ; Notified At: ; Arrived At: Physician: Respiratory; Name: ; Notified At: ; Arrived At: Physician: Lab; Name: ; Notified At: ; Arrived At: Historical: - Allergies: 00:38 No Known Allergies; rv - PMHx: 00:38 Alcoholism; CAD; COPD; CVA; GERD; HEART STENT; Hypertension; rv - PSHx: 00:38 Unable to Obtain; rv - Immunization history: Last tetanus immunization: unknown. - Social history:: Smoking status: unknown. Screenin:38 [facility] ED Fall Risk Assessment (Adult) History of falling in the last 3 months, rv including since admission Yes- fall prone (multiple falls) (3 pts) Confusion or Disorientation Yes (5 pts) Intoxicated or Sedated Yes (3 pts) Impaired Gait Yes (1 pt) Mobility Assist Device Used No (0 pt) Altered Elimination No (0 pt) Score/Fall Risk Level 3 or more points = High Risk Oriented to surroundings, Maintained a safe environment, Educated pt \T\ family on fall prevention, incl call for assistance when getting out of bed, Assessed \T\ reinforced patient's understanding of fall precautions, Provided non-skid footwear, Hourly rounding (assess needs \T\ fall precautionary measures) done, Used ambulatory aids as needed (educated on \T\ assisted with), Used gait belt as appropriate Implemented a Fall Risk Plan of Care, Apply high fall risk patient identification: yellow non skid footwear/ fall signage, Placed fall mat w/ non beveled edge next to bed, Activated bed/chair alarm, Remained w/in arm's length of patient and in sight while toileting, Offered frequent toileting (1:1 observation), Remained with patient while ambulating, Utilized family, sitter, or virtual mobile service rv technician as indicated. Abuse screen: Denies threats or abuse. Denies injuries from another. Nutritional screening: No deficits noted. Tuberculosis screening: No symptoms or risk factors identified. Primary Survey: 00:25 NO uncontrolled hemorrhage observed. Breathing/Chest: Spontaneous respiratory effort, rv equal unlabored respirations, breath sounds clear bilaterally, regular pattern, symmetrical chest rise and fall. Circulation: No external hemorrhage present. Regular and strong central pulse, skin warm/dry/normal color. Disability Pupils are equal, round, reactive to light and accommodation. Exposure/Environment: A warming method has been applied: A warm blanket has been provided to the patient. 00:39 Reassessment Breathing: Spontaneous respiratory effort, equal unlabored respirations, rv breath sounds clear bilaterally, regular pattern with symmetrical chest rise and fall. Secondary Survey: 00:38 HEENT: No deficits noted. Gastrointestinal: No deficits noted. : No deficits noted. rv Musculoskeletal: No deficits noted. Assessment: 00:24 General: Appears INTOXICATED. Behavior is calm, cooperative. Pain: Denies pain. Neuro: rv Level of Consciousness is confused. Cardiovascular: Capillary refill < 3 seconds. Respiratory: Airway is patent Respiratory effort is even, unlabored. Derm:. Musculoskeletal: Range of motion: intact in all extremities. 02:00 Reassessment: Patient and/or family updated on plan of care and expected duration. Pain rv level reassessed. Patient is alert, oriented x 3, equal unlabored respirations, skin warm/dry/pink. 03:00 Reassessment: Patient and/or family updated on plan of care and expected duration. Pain rv level reassessed. Patient is alert, oriented x 3, equal unlabored respirations, skin warm/dry/pink. 04:00 Reassessment: Patient and/or family updated on plan of care and expected duration. Pain rv level reassessed. Patient is alert, oriented x 3, equal unlabored respirations, skin warm/dry/pink. 05:00 Reassessment: Patient and/or family updated on plan of care and expected duration. Pain rv level reassessed. Patient is alert, oriented x 3, equal unlabored respirations, skin warm/dry/pink. 06:27 Reassessment: Patient and/or family updated on plan of care and expected duration. Pain rv level reassessed. Patient is alert, oriented x 3, equal unlabored respirations, skin warm/dry/pink. 07:18 Reassessment: Patient appears in no apparent distress at this time. Patient and/or iw family updated on plan of care and expected duration. Pain level reassessed. Patient is alert, oriented x 3, equal unlabored respirations, skin warm/dry/pink. pt ambulated to bathroom with steady gait, assisted back to bed via wheelchair Patient denies pain at this time. Patient states feeling better. Vital Signs: 00:26 BP 161 / 95; Pulse 86; Resp 17; Temp 98; Pulse Ox 95% on 2 lpm NC; rv 02:00 BP 151 / 75; Pulse 75; Resp 16; Pulse Ox 96% on 4 lpm NC; rv 03:00 BP 160 / 79; Pulse 77; Resp 17; Pulse Ox 95% on 4 lpm NC; rv 04:00 BP 153 / 68; Pulse 96; Resp 17; Pulse Ox 96% on 4 lpm NC; rv 05:00 BP 141 / 73; Pulse 94; Resp 16; Pulse Ox 96% on 4 lpm NC; rv 06:00 BP 149 / 68; Pulse 97; Resp 16; Pulse Ox 96% on 4 lpm NC; rv 06:49 BP 145 / 75; Pulse 87; Resp 18; Pulse Ox 94% on 4 lpm NC; rv 07:34 BP 153 / 78; Pulse 84; Resp 16; Pulse Ox 96% on 2 lpm NC; Pain 0/10; iw 07:34 Pain Scale: Adult iw [place] Coma Score: 00:26 Eye Response: spontaneous(4). Motor Response: obeys commands(6). Verbal Response: rv oriented(5). Total: 15. 01:00 Eye Response: spontaneous(4). Motor Response: obeys commands(6). Verbal Response: rv confused(4). Total: 14. 02:00 Eye Response: spontaneous(4). Motor Response: obeys commands(6). Verbal Response: rv confused(4). Total: 14. 03:00 Eye Response: spontaneous(4). Motor Response: obeys commands(6). Verbal Response: rv oriented(5). Total: 15. 04:00 Eye Response: spontaneous(4). Motor Response: obeys commands(6). Verbal Response: rv oriented(5). Total: 15. 05:00 Eye Response: spontaneous(4). Motor Response: obeys commands(6). Verbal Response: rv oriented(5). Total: 15. 06:00 Eye Response: spontaneous(4). Motor Response: obeys commands(6). Verbal Response: rv oriented(5). Total: 15. 06:49 Eye Response: spontaneous(4). Motor Response: obeys commands(6). Verbal Response: rv oriented(5). Total: 15. 07:34 Eye Response: spontaneous(4). Motor Response: obeys commands(6). Verbal Response: iw oriented(5). Total: 15. Trauma Score (Adult): 00:26 Eye Response: spontaneous(1); Verbal Response: confused(1); Motor Response: obeys rv commands(2); Systolic BP: > 89 mm Hg(4); Respiratory Rate: 10 to 29 per min(4); Srikanth Score: 14; Trauma Score: 12 02:00 Eye Response: spontaneous(1); Verbal Response: confused(1); Motor Response: obeys rv commands(2); Systolic BP: > 89 mm Hg(4); Respiratory Rate: 10 to 29 per min(4); [place] Score: 14; Trauma Score: 12 03:00 Eye Response: spontaneous(1); Verbal Response: oriented(1); Motor Response: obeys rv commands(2); Systolic BP: > 89 mm Hg(4); Respiratory Rate: 10 to 29 per min(4); Srikanth Score: 15; Trauma Score: 12 05:00 Eye Response: spontaneous(1); Verbal Response: oriented(1); Motor Response: obeys rv commands(2); Systolic BP: > 89 mm Hg(4); Respiratory Rate: 10 to 29 per min(4); Srikanth Score: 15; Trauma Score: 12 06:00 Eye Response: spontaneous(1); Verbal Response: oriented(1); Motor Response: obeys rv commands(2); Systolic BP: > 89 mm Hg(4); Respiratory Rate: 10 to 29 per min(4); [place] Score: 15; Trauma Score: 12 06:49 Eye Response: spontaneous(1); Verbal Response: oriented(1); Motor Response: obeys rv commands(2); Systolic BP: > 89 mm Hg(4); Respiratory Rate: 10 to 29 per min(4); Srikanth Score: 15; Trauma Score: 12 07:34 Eye Response: spontaneous(1); Verbal Response: oriented(1); Motor Response: obeys iw commands(2); Systolic BP: > 89 mm Hg(4); Respiratory Rate: 10 to 29 per min(4); Srikanth Score: 15; Trauma Score: 12 ED Course: 00:09 Patient arrived in ED. jj6 00:12 René Augustine RN is Primary Nurse. rv 00:12 Gil Anton PA is PHCP. cp 00:12 Gil Anderson MD is Attending Physician. cp 00:24 Triage completed. rv 00:26 XRAY Chest (1 view) In Process Unspecified. EDMS 00:37 Inserted saline lock: 20 gauge in left antecubital area, using aseptic technique. Blood rv collected. 00:39 Patient has correct armband on for positive identification. Placed in gown. Bed in low rv position. Call light in reach. Side rails up X2. Provided Education on: fall precaution. Client placed on continuous cardiac and pulse oximetry monitoring. NIBP monitoring applied. vp informatics on. 00:40 Thermoregulation: warm blanket given to patient. rv 00:40 No provider procedures requiring assistance completed. rv 00:40 Arm band placed on. rv 01:00 Oxygen administration via nasal cannula \T\ 4L/min. rv 01:39 CT Traumagram (Head C Spine CAP wo con) In Process Unspecified. EDMS 05:59 transfer reinitiated with Edyta from the [facility]. eb 06:00 Patient transferred, IV remains in place. Inserted saline lock: 20 gauge in left rv forearm, using aseptic technique. 06:04 administrative approval given by Edyta Andres Rn/ patient has been accepted to [facility] ER/ Dr. Valerio has accepted the patient without conference with / report to be called to [phone]. Administered Medications: 02:11 Drug: MethylPrednisoLONE IVP 125 mg Route: IVP; Site: left antecubital; ll3 06:33 Follow up: Response: No adverse reaction rv 03:00 Drug: NS 0.9% IV 500 ml Route: IV; Rate: bolus; Site: left forearm; rv 06:33 Follow up: IV Status: Completed infusion; IV Intake: 500ml rv Medication: 06:32 VIS not applicable for this client. rv Intake: 00:38 PO: 210ml (Water); Total: 210ml. rv 06:33 IV: 500ml; Total: 710ml. rv Outcome: 03:45 ER care complete, transfer ordered by . [facility] 06:31 Condition: stable rv 06:31 Instructed on the need for transfer. 06:31 PT IS UNDECIDED TO TRANSFERPatient's length of stay extended due to rv 06:32 Transferred by ground EMS to [facility], Transfer form completed. X-rays sent rv w/ patient. Note: REPORT GIVEN TO KO ZIMMER ED 07:37 Patient left the ED. iw Signatures: Dispatcher [employer] EDGil Hankins MD MD cha Williams, Irene, RN RN iw Gil Anton PA PA cp Botello, Elizabeth René Augustine RN RN rv Naomie Bahena Lynsea, RN RN ll3
--- NOTE | 2023-04-25 03:45 | EDPHYS ---
Physician Documentation [facility] Name: Ansley Henderson Age: 62 yrs Sex: Female : 1960 Arrival Date: 04/24/2023 Time: 23:59 Bed 4 Private MD: ED Physician Gil Anderson HPI: 04/25 00:20 This 62 yrs old Female presents to ER via EMS with complaints of Fall Injury, POSSIBLE cp INTOXICATION. 00:20 Details of fall: The patient fell from an upright position, while walking. cp 00:20 Onset: The symptoms/episode began/occurred today. Associated injuries: The patient cp sustained right upper arm in brace from previous injury. Patient reportedly consumed alcohol this evening. C/o shortness of breath and no complaints of pain. Historical: - Allergies: 00:38 No Known Allergies; rv - PMHx: 00:38 Alcoholism; CAD; COPD; CVA; GERD; HEART STENT; Hypertension; rv - PSHx: 00:38 Unable to Obtain; rv - Immunization history: Last tetanus immunization: unknown. - Social history:: Smoking status: unknown. ROS: 00:25 Constitutional: Negative for fever, poor PO intake. cp 00:25 Eyes: Negative for injury, pain, redness, and discharge. cp 00:25 ENT: Negative for drainage from ear(s), ear pain, sore throat, difficulty swallowing, difficulty handling secretions. 00:25 Cardiovascular: Negative for chest pain, edema, palpitations. 00:25 Respiratory: Positive for cough, shortness of breath. 00:25 Abdomen/GI: Negative for abdominal pain, vomiting, diarrhea, constipation. 00:25 Neuro: Negative for altered mental status. 00:25 All other systems are negative. Exam: 00:30 Constitutional: The patient appears in no acute distress, alert, awake, cp non-diaphoretic, non-toxic, well developed, well nourished. 00:30 Head/Face: Normocephalic, atraumatic. cp 00:30 Eyes: Periorbital structures: appear normal, Pupils: equal, round, and reactive to light and accomodation, Conjunctiva: normal, no exudate, no injection, Lids and lashes: appear normal, bilaterally. 00:30 ENT: External ear(s): are unremarkable, Nose: is normal, Mouth: Lips: moist, Oral mucosa: moist, Posterior pharynx: is normal, airway is patent, no erythema, no exudate. 00:30 Neck: C-spine: vertebral tenderness, is not appreciated, crepitus, is not appreciated. 00:30 Chest/axilla: Inspection: normal. 00:30 Cardiovascular: Rate: normal, Rhythm: regular. 00:30 Respiratory: the patient does not display signs of respiratory distress, Respirations: normal, no use of accessory muscles, no retractions, labored breathing, is not present, Breath sounds: decreased breath sounds, that are moderate, throughout, stridor, is not appreciated. 00:30 Abdomen/GI: Inspection: abdomen appears normal, Palpation: abdomen is soft and non-tender, in all quadrants. 00:30 Neuro: Orientation: to person, place, situation, Mentation: able to follow commands, slow to respond, Motor: moves all fours, strength is normal, Sensation: no obvious gross deficits. 00:38 ECG was reviewed by the Attending Physician. cp Vital Signs: 00:26 BP 161 / 95; Pulse 86; Resp 17; Temp 98; Pulse Ox 95% on 2 lpm NC; rv 02:00 BP 151 / 75; Pulse 75; Resp 16; Pulse Ox 96% on 4 lpm NC; rv 03:00 BP 160 / 79; Pulse 77; Resp 17; Pulse Ox 95% on 4 lpm NC; rv 04:00 BP 153 / 68; Pulse 96; Resp 17; Pulse Ox 96% on 4 lpm NC; rv 05:00 BP 141 / 73; Pulse 94; Resp 16; Pulse Ox 96% on 4 lpm NC; rv 06:00 BP 149 / 68; Pulse 97; Resp 16; Pulse Ox 96% on 4 lpm NC; rv 06:49 BP 145 / 75; Pulse 87; Resp 18; Pulse Ox 94% on 4 lpm NC; rv 07:34 BP 153 / 78; Pulse 84; Resp 16; Pulse Ox 96% on 2 lpm NC; Pain 0/10; iw 07:34 Pain Scale: Adult iw [place] Coma Score: 00:26 Eye Response: spontaneous(4). Motor Response: obeys commands(6). Verbal Response: rv oriented(5). Total: 15. 01:00 Eye Response: spontaneous(4). Motor Response: obeys commands(6). Verbal Response: rv confused(4). Total: 14. 02:00 Eye Response: spontaneous(4). Motor Response: obeys commands(6). Verbal Response: rv confused(4). Total: 14. 03:00 Eye Response: spontaneous(4). Motor Response: obeys commands(6). Verbal Response: rv oriented(5). Total: 15. 04:00 Eye Response: spontaneous(4). Motor Response: obeys commands(6). Verbal Response: rv oriented(5). Total: 15. 05:00 Eye Response: spontaneous(4). Motor Response: obeys commands(6). Verbal Response: rv oriented(5). Total: 15. 06:00 Eye Response: spontaneous(4). Motor Response: obeys commands(6). Verbal Response: rv oriented(5). Total: 15. 06:49 Eye Response: spontaneous(4). Motor Response: obeys commands(6). Verbal Response: rv oriented(5). Total: 15. 07:34 Eye Response: spontaneous(4). Motor Response: obeys commands(6). Verbal Response: iw oriented(5). Total: 15. Trauma Score (Adult): 00:26 Eye Response: spontaneous(1); Verbal Response: confused(1); Motor Response: obeys rv commands(2); Systolic BP: > 89 mm Hg(4); Respiratory Rate: 10 to 29 per min(4); [place] Score: 14; Trauma Score: 12 02:00 Eye Response: spontaneous(1); Verbal Response: confused(1); Motor Response: obeys rv commands(2); Systolic BP: > 89 mm Hg(4); Respiratory Rate: 10 to 29 per min(4); [place] Score: 14; Trauma Score: 12 03:00 Eye Response: spontaneous(1); Verbal Response: oriented(1); Motor Response: obeys rv commands(2); Systolic BP: > 89 mm Hg(4); Respiratory Rate: 10 to 29 per min(4); [place] Score: 15; Trauma Score: 12 05:00 Eye Response: spontaneous(1); Verbal Response: oriented(1); Motor Response: obeys rv commands(2); Systolic BP: > 89 mm Hg(4); Respiratory Rate: 10 to 29 per min(4); [place] Score: 15; Trauma Score: 12 06:00 Eye Response: spontaneous(1); Verbal Response: oriented(1); Motor Response: obeys rv commands(2); Systolic BP: > 89 mm Hg(4); Respiratory Rate: 10 to 29 per min(4); [place] Score: 15; Trauma Score: 12 06:49 Eye Response: spontaneous(1); Verbal Response: oriented(1); Motor Response: obeys rv commands(2); Systolic BP: > 89 mm Hg(4); Respiratory Rate: 10 to 29 per min(4); [place] Score: 15; Trauma Score: 12 07:34 Eye Response: spontaneous(1); Verbal Response: oriented(1); Motor Response: obeys iw commands(2); Systolic BP: > 89 mm Hg(4); Respiratory Rate: 10 to 29 per min(4); [place] Score: 15; Trauma Score: 12 MDM: 00:13 Patient medically screened. 03:28 Data reviewed: vital signs, nurses notes, lab test result(s), EKG, radiologic studies, cp plain films. 04/25 00:13 Order name: Basic Metabolic Panel; Complete Time: : 04/25 01:57 Interpretation: Normal except: NA 131; CL 95; CRE 0.41; CA 7.9. 04/25 00:13 Order name: CBC with Diff; Complete Time: : 04/25 01:57 Interpretation: Normal except: WBC 11.40; MPV 6.9; LYM% 47.3; LYMA 5.4. 04/25 00:13 Order name: Magnesium; Complete Time: :56 04/25 00:13 Order name: NT PRO-BNP; Complete Time: :56 04/25 00:13 Order name: PT-INR; Complete Time: : 04/25 00:13 Order name: Troponin HS; Complete Time: :56 04/25 00:13 Order name: ETOH Level; Complete Time: :56 04/25 01:57 Interpretation: Abnormal: ETOH 342. 04/25 00:13 Order name: XRAY Chest (1 view) 04/25 00:58 Order name: CT Traumagram (Head C Spine CAP wo con) 04/25 00:13 Order name: EKG; Complete Time: 00: cp 04/25 00:13 Order name: Cardiac monitoring; Complete Time: cp 04/25 00:13 Order name: EKG - Nurse/Tech; Complete Time: cp 04/25 00:13 Order name: IV Saline Lock; Complete Time: cp 04/25 00:13 Order name: Labs collected and sent; Complete Time: cp 04/25 00:13 Order name: O2 Per Protocol; Complete Time: cp 04/25 00:13 Order name: O2 Sat Monitoring; Complete Time: cp EC:38 Rate is 84 beats/min. Rhythm is regular. DC interval is normal. QRS interval is normal. cp QT interval is normal. T waves are Inverted in lead aVR. Interpreted by me. Reviewed by me. Administered Medications: 02:11 Drug: MethylPrednisoLONE IVP 125 mg Route: IVP; Site: left antecubital; ll3 06:33 Follow up: Response: No adverse reaction rv 03:00 Drug: NS 0.9% IV 500 ml Route: IV; Rate: bolus; Site: left forearm; rv 06:33 Follow up: IV Status: Completed infusion; IV Intake: 500ml rv Disposition Summary: 04/25/23 03:45 Transfer Ordered Transfer Location: [facility] amna Reason: Higher level of care amna Condition: Stable amna Problem: new amna Symptoms: have improved amna Accepting Physician: to (04/25/23 07:37) iw Diagnosis - Fall on same level, unspecified amna - Fracture of thoracic vertebra - T11 40% with retropulsion amna - Wedge compression fracture of unspecified thoracic vertebra amna - Alcohol abuse with intoxication amna Forms: - Medication Reconciliation Form amna - SBAR form amna Signatures: Dispatcher [employer] EDGil Hankins MD MD cha Williams, Irene RN RN iw Gil Anton PA PA cp Vicente, Ronaldo, RN RN rv Loubet, Lynsea, RN RN ll3 Corrections: (The following items were deleted from the chart) 01: 00:58 Elbow Left 3 View+RAD.RAD.BRZ ordered. EDMS EDMS 01: 00:58 Knee Left 3 View+RAD.RAD.BRZ ordered. EDMS EDMS 07:37 03:45 to [facility] iw
[2023-04-25 07:59] VITALS: TEMP 98
[2023-04-25 08:12] VITALS: BP 153/78; O2SAT 96
--- NOTE | 2023-04-25 15:05 | RAD REPORT ---
EXAM DESCRIPTION: CT - Head C Spine Cap Wo Con - 04/25/2023 6:55 am CLINICAL HISTORY: 62 years Female fall TECHNIQUE: Multiple axial CT images of the brain, cervical spine, chest, abdomen and pelvis were per formed followed by sagittal and coronal reconstructed images. The CT study is performed according to ALARA (as low as reasonably achievable) or ALARA/IMAGE GENTLY, with automatic adjustment of mA and/or kV according to patient size. Performed on: 04/25/2023 at 1:28 AM COMPARISON: CT head and cervical spine performed on 07/19/[address] chest without contrast performe d on 07/19/2022. CTA chest, abdomen and pelvis performed on 02/07/[address] thoracic spine report fro m 10/17/2022. FINDINGS: CT HEAD: There is no evidence of mass, acute mass effect or midline shift. There are no acute extra-axial flui d collections. There is no evidence of acute intracranial hemorrhage. The cerebral sulci and ventricles are normal in size and configuration. There are no focal abnormal areas of increased or decreased attenuation. There is no significant mucosal thickening of the paranasal sinuses. The mastoid air cells are The orbital contents are grossly unremarkable. No acute osseous abnormalities are identified. No focal soft tissue abnormalities are identified. CT CERVICAL SPINE: Limitations: There is some motion artifact on the images most pronounced at the level of C5 resulting in degradation of image quality. The cervical vertebrae are normal in height. There is normal alignment of the vertebrae. The disc spa benji are well preserved in height. Bone mineralization is normal. The atlanto-axial articulation is preserved and the odontoid process is intact. There is normal alignment of the facet joints on the parasagittal images. There are very mild degener ative changes of the cervical spine. There is no evidence of acute fracture or subluxation. As noted above, there is motion artifact on th e images particularly extending to the level of C5 resulting in degradation of image quality at this level. There is no significant canal stenosis. There is no significant neural foraminal stenosis. The paravertebral and paraspinal soft tissues are unremarkable. The lung apices reveal mild centrilobular emphysematous changes. CHEST: Lungs: The lungs are well-expanded. There is mild centrilobular emphysema. No focal acute parenchymal abnormalities are identified. There is minimal scarring and/or atelectasis in the lingula. There are no pleural effusions. There is no pneumothorax. The central airways are patent. Heart: The heart is normal in size. There is no pericardial effusion. There are moderate coronary artery calcifications. Mediastinum: The mediastinum is unremarkable. The mediastinal vessels are normal in caliber and con tour. Bones: There are chronic mild to moderate compression fractures of T6-T8. There is a new mild to mode rate superior endplate compression fracture T11 with approximately 40% loss of height. There is appro ximately 2 mm of retropulsion into the spinal canal. There also appears to be a mild chronic compress ion fracture T4 which was described previously. There is an old fracture of the right humeral diaphys is. Soft tissues: No focal soft tissue abnormalities are identified. Lymphadenopathy: No pathologic hilar, mediastinal or axillary lymphadenopathy is identified. ABDOMEN/PELVIS: Liver: The liver is normal in size and configuration. No focal hepatic abnormalities are identified. Liver attenuation is within normal limits. Spleen: The spleen is normal is size, configuration and attenuation. Gallbladder and bile duct: The gallbladder is well distended and contains a small gallstone. There is no biliary ductal dilatation. Pancreas: The pancreas is grossly normal in size and configuration. Adrenal Glands: The adrenal glands are normal in size and configuration. Kidneys: The kidneys are normal in size and configuration. There is no evidence of hydronephrosis. Th ere is no evidence of nephrolithiasis. No definite solid or cystic renal mass lesions are identified. Stomach: The stomach is grossly normal. There is no definite hiatal hernia. Bowel: The bowel gas pattern is non specific and non obstructive. There is scattered colonic divertic ulosis. Appendix: The appendix is normal. Free air: There is no evidence of free air. Free fluid: There is no evidence of free fluid. Vasculature: The aorta is normal in caliber and contour. The inferior vena cava is grossly unremarkab le. There are mild to moderate atherosclerotic calcifications along the abdominal aorta and proximal major branch vessels. Lymphadenopathy: No pathologic lymphadenopathy is identified. Bladder: The bladder is well distended and smooth in contour. Reproductive: The uterus is grossly within normal limits. Bones: No acute osseous abnormalities are identified. There is chronic, stable mild irregularity of the distal sacrum. Soft tissues: No acute soft tissue abnormalities are identified. IMPRESSION: CT HEAD: No evidence of acute intracranial pathology. CT CERVICAL SPINE: 1. There is motion artifact on the images particularly extending to the level of C5 resulting in de gradation of image quality at this level. 2. No definite acute osseous injury involving the cervical spine. CT CHEST: 1. No evidence of acute intrathoracic disease. 2. Mild to moderate superior endplate compression fracture T11 with approximately 40% loss of heigh t and approximately 2 mm of retropulsion into the spinal canal. This is new since the prior study. 3. Chronic mild to moderate compression fractures of T6-T8 and remote right humeral diaphyseal frac ture. 4. Minimal scarring and/or atelectasis in the lingula. 5. Mild centrilobular emphysema. 6. Moderate coronary artery calcifications. CT ABDOMEN AND PELVIS: 1. No evidence of acute intra-abdominal or intrapelvic pathology. 2. Cholelithiasis. 3. Scattered colonic diverticulosis. These critical findings were discussed with BOBY Najera on 04/25/2023 at 3: 37 AM central time. Electronically signed by: Aleta Bhatti DO 04/25/2023 3:46 AM CDT Due to temporary technical issues with the PACS/Fluency reporting system, reports are being signed by the in house radiologists without review as a courtesy to insure prompt reporting. The interpreting radiologist is fully responsible for the content of the report.
--- NOTE | 2023-04-25 16:32 | RAD REPORT ---
EXAM DESCRIPTION: RAD - Chest Single View - 04/25/2023 12:24 am CLINICAL HISTORY: SOB TECHNIQUE: Frontal view of the chest. COMPARISON: XR Chest dated 04/28/2022 FINDINGS: Lungs: Coarsened interstitial markings. No focal consolidation. Pleural space: Unremarkable. No pneumothorax. Heart: Unremarkable. No cardiomegaly. Mediastinum: Unremarkable. Bones/joints: Multilevel spondylosis. Remote right anterior 5th through 7th rib fractures. Terrance te right humeral diaphyseal fracture. Vasculature: Thoracic aortic atherosclerosis. IMPRESSION: No acute disease. Electronically signed by: Susan Caballero MD 04/25/2023 1:31 AM CDT Due to temporary technical issues with the PACS/Fluency reporting system, reports are being signed by the in house radiologists without review as a courtesy to insure prompt reporting. The interpreting radiologist is fully responsible for the content of the report.
--- NOTE | 2023-04-27 15:34 | EKG ---
Test Date: 2023-04-25 Test Time: 00:32:21 Bleach Boiler Filler: TAZ MEASUREMENT RESULTS: Intervals: Rate: 84 RI: 142 QRSD: 76 QT: 352 QTc: 415 [place]: P: 67 RI: 142 QRS: 70 T: 60 INTERPRETIVE STATEMENTS: Normal sinus rhythm Normal ECG Compared to ECG 10/16/2022 16:36:26 Myocardial infarct finding no longer present Electronically Signed On 04-27-23 15:31:14 CDT by González Guzman
== END 2023-04-25 07:37 | disposition short-term general hospital (02) ==
LOC: ER 23:59
DX: S22.080A Wedge compression fracture of T11-T12 vertebra, initial encounter for closed fracture (principal); F10.229 Alcohol dependence with intoxication, unspecified; W18.30XA Fall on same level, unspecified, initial encounter; I10 Essential (primary) hypertension; Z95.818 Presence of other cardiac implants and grafts
CPT/HCPCS: 96361; 93005; 85025; 80048; 36415; 83735; 85610; 84484; 83880; 70450; 71250; 72125; 71045; 96374; 99285; 82077; J2930

== ENCOUNTER 2024-09-05 10:45 | Inpatient (IN) | payer OTHER ==
[2024-09-05] MEDS ORDERED: NA CHLORIDE 0.9% 1,000 ML ONE (11:21)
[2024-09-05] MEDS ORDERED: FAMOTIDINE 20 MG/2 ML VIAL IV ONE (11:21)
[2024-09-05 11:46] LABS: Absolute Basophils 0.1 K/uL (0-0.5); Absolute Eosinophils 0.1 K/uL (0-0.5); Absolute Lymphocytes (CBC) 1.9 K/uL (0.7-4.9); Absolute Monocytes 0.8 K/uL (0.1-1.3); Basophils % 0.9 % (0-1.3); Eosinophils % 1.7 % (0-4.4); Hematocrit 39.1 % (36.0-45.0); Hemoglobin 12.3 g/dL (12.0-15.0); Lymphocytes % 23.9 % (15.3-44.8); MCH 28.1 pg (27.0-35.0); MCHC 31.6 g/dL (32.0-36.0); MCV 89.1 fL (80-100); Monocytes % 10.8 % (3.3-12.3); Neutrophils % 62.7 % (41.7-73.7); Nucleated Red Blood Cells % 0.1 % (0-0); Platelets 263 thou/uL (152-406); RBC Red Blood Cell Count 4.38 M/uL (3.86-4.86); Red Cell Distribution Width 13.3 % (12.1-15.2)
[2024-09-05 11:52] LABS: D-Dimer 0.441 FEUug/mL (0-0.500); PT Prothrombin Time 9.8 SECONDS (9.4-12.5); Protime INR 0.87
[2024-09-05 12:20] LABS: SARS-CoV-2 Antigen CONTROL BLUE LINE VIS/BG OK; SARS-CoV-2 Antigen Rapid Res Negative (Negative)
--- NOTE | 2024-09-05 12:21 | RAD REPORT ---
EXAMINATION: ONE VIEW CHEST XR CLINICAL INDICATION: COUGH TECHNIQUE: Frontal chest projection is submitted. Examination is limited by patient positioning and t echnique. COMPARISON: 02/17/2024 FINDINGS: The lungs are diffusely emphysematous but grossly clear. The heart is upper limit of normal in size. Ununited chronic right humeral fracture IMPRESSION: COPD without an acute process suspected.
--- NOTE | 2024-09-05 12:25 | ER ---
Nurse's Notes [facility] Name: Ansley Henderson Age: 63 yrs Sex: Female : 1960 Arrival Date: 09/05/2024 Time: 10:45 Bed 4 Private MD: Diagnosis: COPD/ Chronic obstructive pulmonary disease with (acute) exacerbation;Dyspnea;Chest pain, unspecified Presentation: 09/05 10:53 Chief complaint: EMS states: CP and SOB that began at approximately 0800. pt also kc6 reports dizziness. Coronavirus screen: At this time, the client does not indicate any symptoms associated with coronavirus-19. Ebola Screen: No symptoms or risks identified at this time. Initial Sepsis Screen: Does the patient meet any 2 criteria? HR > 90 bpm. Does the patient have a suspected source of infection? No. Patient's initial sepsis screen is negative. Risk Assessment: Do you want to hurt yourself or someone else? Patient reports no desire to harm self or others. Onset of symptoms was September 05, 2024. 10:53 Method Of Arrival: EMS: [facility] 10:53 Acuity: ENMANUEL 2 kc Historical: - Allergies: 10:54 No Known Allergies; kc6 - PMHx: 10:54 Alcoholism; CAD; COPD; CVA; GERD; HEART STENT; Hypertension; Myocardial infarction; kc6 - Immunization history:: Adult Immunizations not immunized. - Infectious Disease History:: Denies. - Social history:: Smoking status: Patient/guardian denies using tobacco, the patient reports quitting approximately 8 years ago. Screenin:55 [facility] ED Fall Risk Assessment (Adult) History of falling in the last 3 months, kc6 including since admission Yes- single mechanical fall (1 pt) Confusion or Disorientation No (0 pts) Intoxicated or Sedated No (0 pts) Impaired Gait No (0 pts) Mobility Assist Device Used No (0 pt) Altered Elimination No (0 pt) Score/Fall Risk Level 0 - 2 = Low Risk Oriented to surroundings, Maintained a safe environment, Educated pt \T\ family on fall prevention, incl call for assistance when getting out of bed. Abuse screen: Denies threats or abuse. Denies injuries from another. Nutritional screening: No deficits noted. Tuberculosis screening: No symptoms or risk factors identified. Assessment: 10:53 General: Appears in no apparent distress. uncomfortable, slender, unkempt, Behavior is kc6 calm, cooperative, appropriate for age. Pain: Complains of pain in chest Pain does not radiate. Pain began suddenly. Neuro: Level of Consciousness is awake, alert, obeys commands, Oriented to person, place, time, situation, Appropriate for age Health Care Liaison are equal bilaterally Moves all extremities. Full function Gait is steady, Speech is normal, Facial symmetry appears normal, Pupils are PERRLA, Intact Babinski is positive Reports dizziness. Cardiovascular: Reports chest pain, shortness of breath, Heart tones S1 S2 present Capillary refill < 3 seconds Rhythm is sinus tachycardia. Respiratory: Reports shortness of breath at rest on exertion cough that is productive, air hunger labored breathing pain with cough pain with respiration Airway is patent Trachea midline Respiratory effort is even, labored, pursed lip, using tripod position, Respiratory pattern is symmetrical, tachypnea Breath sounds with wheezes bilaterally. Onset: The symptoms/episode began/occurred this morning, the patient has moderate shortness of breath. GI: Abdomen is flat, non-distended, Reports constipation, nausea, Patient currently denies abdominal pain, diarrhea, vomiting. : No signs and/or symptoms were reported regarding the genitourinary system. EENT: No signs and/or symptoms were reported regarding the EENT system. Derm: No signs and/or symptoms reported regarding the dermatologic system. Skin is intact, is fragile, is thin, with poor turgor Skin is pink, warm \T\ dry. Musculoskeletal: No signs and/or symptoms reported regarding the musculoskeletal system. Circulation, motion, and sensation intact. Capillary refill < 3 seconds, Range of motion: intact in all extremities. 11:53 Reassessment: Patient appears in no apparent distress at this time. No changes from kc6 previously documented assessment. Patient and/or family updated on plan of care and expected duration. Pain level reassessed. Patient is alert, oriented x 3, equal unlabored respirations, skin warm/dry/pink. 12:45 Reassessment: Patient appears in no apparent distress at this time. No changes from kc6 previously documented assessment. Patient and/or family updated on plan of care and expected duration. Pain level reassessed. Patient is alert, oriented x 3, equal unlabored respirations, skin warm/dry/pink. 13:45 Reassessment: Patient appears in no apparent distress at this time. No changes from kc6 previously documented assessment. Patient and/or family updated on plan of care and expected duration. Pain level reassessed. Patient is alert, oriented x 3, equal unlabored respirations, skin warm/dry/pink. 14:30 Reassessment: RT at bedside for ABG. kc6 14:48 Reassessment: RT reports sticking pt twice, unable to obtain ABG at this time. tm6 15:12 Reassessment: Patient appears in no apparent distress at this time. No changes from kc6 previously documented assessment. Patient and/or family updated on plan of care and expected duration. Pain level reassessed. Patient is alert, oriented x 3, equal unlabored respirations, skin warm/dry/pink. Patient states feeling better. Patient states symptoms have improved. Vital Signs: 10:53 BP 173 / 51; Pulse 109; Resp 20 S; Temp 98.4(O); Pulse Ox 98% on 4 lpm NC; Weight 56.25 kc6 kg (M); Height 5 ft. 1 in. (R); Pain 10/10; 12:45 BP 183 / 65; Pulse 103; Resp 20 S; Pulse Ox 98% on 4 lpm NC; kc6 13:28 BP 132 / 50; Pulse 102; Resp 20 S; Pulse Ox 100% on 4 lpm NC; kc6 14:06 BP 137 / 54; Pulse 66; Resp 19 S; Pulse Ox 99% on 4 lpm NC; kc6 10:53 Body Mass Index 23.43 (56.25 kg, 154.94 cm) kc6 10:53 Pain Scale: Adult [facility] ED Course: 10:51 Patient arrived in ED. em1 10:52 Merline Bah RN is Primary Nurse. kc6 10:52 Gil Anderson MD is Attending Physician. amna 10:54 Triage completed. kc6 10:54 Arm band placed on. kc6 10:54 Patient has correct armband on for positive identification. Bed in low position. Call kc6 light in reach. Side rails up X2. platform power technician on. Pulse ox on. NIBP on. Door closed. Noise minimized. Lights dimmed. Pillow given. 10:54 Oxygen administration via nasal cannula \T\ 4L/min. kc6 11:49 Assisted to bedside commode. Repositioned patient. Linen changed. kc6 11:49 Inserted saline lock: 20 gauge in left forearm, using aseptic technique. Blood kc6 collected. Flushed with 10 mL NS. 12:11 XRAY Chest (1 view) In Process Unspecified. EDMS 12:23 Claudette Knapp is Hospitalizing Provider. amna 12:42 Lactate w/ 2H reflex if indic. Sent. kc6 12:42 Lab(s) recollected, by me, sent to lab. Initial Neb Treatment Given as ordered Patient kc6 was instructed and evaluated on procedure Patient tolerated procedure well without adverse effect. 13:05 EKG done, by ED staff, reviewed by Gil Anderson MD. kc6 13:27 Lab(s) recollected, by me, sent to lab. kc6 15:12 No provider procedures requiring assistance completed. Patient admitted, IV remains in kc6 place. Administered Medications: 11:49 Drug: NS 0.9% IV 1000 ml IV at 1 bolus Per protocol; to be given as a bolus over 60 kc6 minutes Route: IV; Rate: 1 bolus; Site: left forearm; 13:07 Follow up: Response: No adverse reaction; IV Status: Completed infusion; IV Intake: kc6 1000ml 11:49 Drug: Famotidine IVP 20 mg IVP once; dilute with 10 mL 0.9% NaCl; give over 2 minutes kc6 Route: IVP; Site: left forearm; 12:17 Follow up: Response: No adverse reaction kc6 12:41 Drug: Rocephin IV 1 grams IV at per protocol once; Given slow IV push per pharmacy kc6 instructions Route: IV; Rate: per protocol; Site: left forearm; 13:07 Follow up: Response: No adverse reaction; IV Status: Completed infusion; IV Intake: [id number] 12:41 Drug: Levalbuterol Inhalation 3.75 mg Inhalation once Route: Inhalation; kc6 13:08 Follow up: Response: No adverse reaction; Wheezing diminished kc6 12:41 Drug: Ipratropium Inhalation Aerosol 0.5 mg Inhalation once Route: Inhalation; kc6 13:08 Follow up: Response: No adverse reaction; Wheezing diminished kc6 12:41 Drug: Aspirin PO Chewable Tablet 81 mg PO once Route: PO; kc6 13:08 Follow up: Response: No adverse reaction kc6 12:42 Drug: NS 0.9% IV (30 ml/kg) 30 ml/kg IV at bolus once; Sepsis Protocol; to be given as kc6 a bolus over 90 minutes Route: IV; Rate: bolus; Site: left forearm; 13:06 Follow up: Response: No adverse reaction; IV Status: Completed infusion; IV Intake: kc6 1687ml 12:42 Drug: MethylPrednisoLONE IVP 125 mg IVP once Route: IVP; Site: left forearm; kc6 13:07 Follow up: Response: No adverse reaction kc6 12:42 Drug: Magnesium Sulfate IVPB 2 grams IVPB once over 2 hrs Route: IVPB; Infused Over: 2 kc6 hrs; Site: left forearm; 13:27 Follow up: Response: No adverse reaction; IV Status: Completed infusion; IV Intake: [id number] 13:33 Drug: Enoxaparin Sub-Q 1 mg/kg Sub-Q once Route: Sub-Q; Site: abdomen; kc6 14:07 Follow up: Response: No adverse reaction kc6 13:33 Drug: Metoprolol PO 25 mg PO once Route: PO; kc6 14:07 Follow up: Response: No adverse reaction; Blood pressure is lowered; Cardiac rhythm kc6 changed 13:36 Drug: levofloxacin IVPB 500 mg 100 ml IVPB once over 60 mins Volume: 100 ml; Route: kc6 IVPB; Infused Over: 60 mins; Site: left forearm; 14:31 Follow up: Response: No adverse reaction; IV Status: Completed infusion; IV Intake: kc6 100ml 14:21 Drug: Levalbuterol Inhalation 1.25 mg Inhalation once Route: Inhalation; kc6 14:31 Follow up: Response: No adverse reaction kc6 Medication: 15:12 VIS not applicable for this client. kc6 Intake: 13:06 IV: 1687ml; Total: 1687ml. kc6 13:07 IV: 1000ml; Total: 2687ml. kc6 13:07 IV: 10ml; Total: 2697ml. kc6 13:27 IV: 50ml; Total: 2747ml. kc6 14:31 IV: 100ml; Total: 2847ml. kc6 Outcome: 12:24 Decision to Hospitalize by Provider. amna 15:12 Admitted to Med/surg accompanied by tech, via wheelchair, room 210, with oxygen, with kc6 chart, 15:12 Condition: good 15:12 Instructed on the need for admit, 15:13 Patient left the ED. kc6 Signatures: Dispatcher [employer] Gil Hwang MD MD cha Martinez, Eric em1 Campbell, Kaitlyn, RN RN kc6 Timothy Escobar RN RN tm6
--- NOTE | 2024-09-05 12:25 | EDPHYS ---
Physician Documentation [facility] Name: Ansley Henderson Age: 63 yrs Sex: Female : 1960 Arrival Date: 09/05/2024 Time: 10:45 Bed 4 Private MD: ED Physician Gil Anderson HPI: 09/05 12:13 This 63 yrs old Female presents to ER via EMS with complaints of Chest Pain, amna Shortness Of Breath. 12:13 The patient or guardian reports chest pain that is located primarily in the anterior amna chest wall, bilaterally. Onset: 3 day(s) ago. The pain does not radiate. Associated signs and symptoms: The patient has no apparent associated signs or symptoms. The chest pain is described as squeezing. Modifying factors: The symptoms are alleviated by nothing. the symptoms are aggravated by breathing, cough. Severity of pain: At its worst the pain was mild in the emergency department the pain has resolved and did so earlier today. The patient has experienced similar episodes in the past, multiple times. Historical: - Allergies: 10:54 No Known Allergies; kc6 - PMHx: 10:54 Alcoholism; CAD; COPD; CVA; GERD; HEART STENT; Hypertension; Myocardial infarction; kc6 - Immunization history:: Adult Immunizations not immunized. - Infectious Disease History:: Denies. - Social history:: Smoking status: Patient/guardian denies using tobacco, the patient reports quitting approximately 8 years ago. ROS: 12:15 Constitutional: Negative for fever, chills, and weight loss, Eyes: Negative for injury, amna pain, redness, and discharge, ENT: Negative for injury, pain, and discharge, Neck: Negative for injury, pain, and swelling, Abdomen/GI: Negative for abdominal pain, nausea, vomiting, diarrhea, and constipation, Back: Negative for injury and pain, : Negative for injury, bleeding, discharge, and swelling, MS/Extremity: Negative for injury and deformity, Skin: Negative for injury, rash, and discoloration, Neuro: Negative for headache, weakness, numbness, tingling, and seizure, Psych: Negative for depression, anxiety, suicide ideation, homicidal ideation, and hallucinations, Allergy/Immunology: Negative for hives, rash, and allergies, Endocrine: Negative for neck swelling, polydipsia, polyuria, polyphagia, and marked weight changes, Hematologic/Lymphatic: Negative for swollen nodes, abnormal bleeding, and unusual bruising, 12:15 Cardiovascular: Positive for chest pain, with cough, 12:15 Respiratory: Positive for cough, shortness of breath, wheezing, inspiratory, expiratory, 12:15 MS/extremity: Negative for acute changes, swelling, tenderness, 12:15 Neuro: Positive for weakness, Exam: 12:15 Constitutional: This is a well developed, well nourished patient who is awake, alert, amna and in no acute distress. Head/Face: Normocephalic, atraumatic. Eyes: Pupils equal round and reactive to light, extra-ocular motions intact. Lids and lashes normal. Conjunctiva and sclera are non-icteric and not injected. Cornea within normal limits. Periorbital areas with no swelling, redness, or edema. ENT: Nares patent. No nasal discharge, no septal abnormalities noted. Tympanic membranes are normal and external auditory canals are clear. Oropharynx with no redness, swelling, or masses, exudates, or evidence of obstruction, uvula midline. Mucous membranes moist. Neck: Trachea midline, no thyromegaly or masses palpated, and no cervical lymphadenopathy. Supple, full range of motion without nuchal rigidity, or vertebral point tenderness. No Meningismus. Chest/axilla: Normal chest wall appearance and motion. Nontender with no deformity. No lesions are appreciated. Abdomen/GI: Soft, non-tender, with normal bowel sounds. No distension or tympany. No guarding or rebound. No evidence of tenderness throughout. Back: No spinal tenderness. No costovertebral tenderness. Full range of motion. Female : Normal external genitalia. Skin: Warm, dry with normal turgor. Normal color with no rashes, no lesions, and no evidence of cellulitis. MS/ Extremity: Pulses equal, no cyanosis. Neurovascular intact. Full, normal range of motion., bilateral aka Neuro: Awake and alert, GCS 15, oriented to person, place, time, and situation. Cranial nerves II-XII grossly intact. Motor strength 5/5 in all extremities. Sensory grossly intact. Cerebellar exam normal. Normal gait. Psych: Awake, alert, with orientation to person, place and time. Behavior, mood, and affect are within normal limits. 12:15 Cardiovascular: Rate: tachycardic, actual rate is 109 bpm, Rhythm: regular, Pulses: Pulses are 4+ in bilateral radial, brachial, femoral, popliteal, posterior tibial and and dorsalis pedis arteries.. Heart sounds: normal, Edema: is not appreciated, JVD: is not appreciated, 12:15 ECG was reviewed by the Attending Physician. 12:15 Musculoskeletal/extremity: DVT Exam: No signs of deep vein thrombosis. no pain, no swelling, no tenderness, negative Homans' sign noted on exam, no appreciated bluish discoloration, no erythema, no increased warmth, 13:05 ECG was reviewed by the Attending Physician. [facility] Vital Signs: 10:53 BP 173 / 51; Pulse 109; Resp 20 S; Temp 98.4(O); Pulse Ox 98% on 4 lpm NC; Weight 56.25 kc6 kg (M); Height 5 ft. 1 in. (R); Pain 10/10; 12:45 BP 183 / 65; Pulse 103; Resp 20 S; Pulse Ox 98% on 4 lpm NC; kc6 13:28 BP 132 / 50; Pulse 102; Resp 20 S; Pulse Ox 100% on 4 lpm NC; kc6 14:06 BP 137 / 54; Pulse 66; Resp 19 S; Pulse Ox 99% on 4 lpm NC; kc6 10:53 Body Mass Index 23.43 (56.25 kg, 154.94 cm) kc6 10:53 Pain Scale: Adult kc6 MDM: 10:52 Medical Screening Exam initiated amna 12:17 Antibiotic administration: Levaquin given, rocephin. Differential diagnosis: Anemia amna Anxiety Reaction asthma, Bronchitis CHF exacerbation, Chronic Obstructive Pulmonary Disease obstructed airway, bronchitis, flu, URI, abnormal EKG, acute myocardial infarction, acute pericarditis, anxiety, chest wall pain, costochondritis, gastritis, pancreatitis, peptic ulcer disease, pneumonia, pneumothorax, pulmonary embolus, stable angina, thoracic aortic disection, unstable angina, Myocardial Infarction pneumonia, Pneumothorax pulmonary edema, Pulmonary Embolism reactive airway disease, Sepsis Unstable Angina. HEART Score: History: Moderately Suspicious (1), ECG: Non specific repolarization disturbance / LBTB / PM (1), Age: > or = 65 years (2), Risk Factors: > or = 3 Risk factors for atherosclerotic disease (2), [Hypercholesterolemia] [Hypertension] [DM] [Active Smoker] [+ Family HX] Troponin: < or = 1 x Normal Limit (0). The patient was given aspirin in the Emergency Department. Differential Diagnosis: Obstructed Airway Bronchitis Influenza Upper Respiratory Infection Sinusitis Pharyngitis Otitis Media Asthma Exacerbation Viral Syndrome Pneumonia Tracheal Injury. Immunization status: Pneumococcal vaccine: within last 5 years. Influenza vaccine: within last 5 years. Data reviewed: vital signs, nurses notes, lab test result(s), EKG, radiologic studies, plain films. Consideration of Admission/Observation Patient was admitted/placed on observation. Escalation of care including admission/observation considered. I considered the following discharge prescriptions or medication management in the emergency department Medications were administered in the Emergency Department. See MAR. Independent interpretation of the following test(s) in the Emergency Department EKG: See my EKG interpretation above. Test considered but Not performed: CT: no ct pe. Historians other than the Patient: EMS: ems well informed. Care significantly affected by the following chronic conditions: Hypertension, Chronic Obstructive Pulmonary Disease. Post IV fluid administration reassessment for Sepsis: Client prescribed 30 mL/kg IVF. Sepsis focused reassessment complete. Counseling: I had a detailed discussion with the patient and/or guardian regarding the historical points, exam findings, and any diagnostic results supporting the discharge/admit diagnosis, lab results, radiology results, the need for further work-up and treatment in the hospital. 09/05 11:06 Order name: Basic Metabolic Panel; Complete Time: 14:01 [facility] 09/05 11:06 Order name: CBC with Diff; Complete Time: 12:08 [facility] 09/05 11:06 Order name: LFT's; Complete Time: 14:01 [facility] 09/05 11:06 Order name: Magnesium; Complete Time: 14:01 [facility] 09/05 11:06 Order name: NT PRO-BNP; Complete Time: 14:01 [facility] 09/05 11:06 Order name: PT-INR; Complete Time: 12:08 [facility] 09/05 11:06 Order name: Troponin HS; Complete Time: 14:01 [facility] 09/05 11:06 Order name: Lipase; Complete Time: 14:01 [facility] 09/05 11:06 Order name: Blood Culture Adult (2) [facility] 09/05 11:06 Order name: Urinalysis w/ reflexes [facility] 09/05 11:06 Order name: Flu; Complete Time: 12:36 [facility] 09/05 11:06 Order name: SARS RAPID; Complete Time: 12:20 [facility] 09/05 11:06 Order name: D-Dimer; Complete Time: 12:08 [facility] 09/05 12:13 Order name: Lactate w/ 2H reflex if indic.; Complete Time: 13:03 [facility] 09/05 14:01 Order name: ABG [facility] 09/05 14:11 Order name: CBC with Automated Diff EDMS 09/05 14:11 Order name: CBC with Automated Diff EDMS 09/05 14:11 Order name: Comprehensive Metabolic Panel EDMS 09/05 14:11 Order name: Comprehensive Metabolic Panel EDMS 09/05 14:11 Order name: Lipid Profile EDMS 09/05 14:11 Order name: Lipid Profile EDMS 09/05 14:11 Order name: Protime (+INR) EDMS 09/05 14:11 Order name: Protime (+INR) EDMS 09/05 14:11 Order name: Troponin High Sensitivity EDMS 09/05 14:11 Order name: Troponin High Sensitivity EDMS 09/05 14:11 Order name: Troponin High Sensitivity [facility] 09/05 11:06 Order name: XRAY Chest (1 view); Complete Time: 12:36 [facility] 09/05 13:08 Order name: EKG; Complete Time: 13:09 [facility] 09/05 11:06 Order name: Cardiac monitoring; Complete Time: 11:15 [facility] 09/05 11:06 Order name: EKG - Nurse/Tech; Complete Time: 11:15 [facility] 09/05 11:06 Order name: IV Saline Lock; Complete Time: 11:49 [facility] 09/05 11:06 Order name: Labs collected and sent; Complete Time: 11:49 [facility] 09/05 11:06 Order name: O2 Per Protocol; Complete Time: 11:15 [facility] 09/05 11:06 Order name: O2 Sat Monitoring; Complete Time: 11:15 [facility] 09/05 11:52 Order name: Labs - recollect needed: recollect purple top please; Complete Time: 12:42 em 09/05 13:08 Order name: EKG - Nurse/Tech; Complete Time: 13:19 [facility] EC:15 Rate is 101 beats/min. Rhythm is regular. QRS [place] is Normal. VA interval is normal. [facility] QRS interval is normal. QT interval is normal. No Q waves. T waves are Normal. No ST changes noted. Clinical impression: Sinus tachycardia and No evidence of ischemia. Interpreted by me. Reviewed by me. 13:05 Rate is 102 beats/min. Rhythm is regular. QRS [place] is Normal. VA interval is normal. amna QRS interval is normal. QT interval is normal. No Q waves. T waves are Normal. No ST changes noted. Clinical impression: Sinus tachycardia and No evidence of ischemia. Interpreted by me. Reviewed by me. Administered Medications: 11:49 Drug: NS 0.9% IV 1000 ml IV at 1 bolus Per protocol; to be given as a bolus over 60 kc6 minutes Route: IV; Rate: 1 bolus; Site: left forearm; 13:07 Follow up: Response: No adverse reaction; IV Status: Completed infusion; IV Intake: kc6 1000ml 11:49 Drug: Famotidine IVP 20 mg IVP once; dilute with 10 mL 0.9% NaCl; give over 2 minutes kc6 Route: IVP; Site: left forearm; 12:17 Follow up: Response: No adverse reaction kc6 12:41 Drug: Rocephin IV 1 grams IV at per protocol once; Given slow IV push per pharmacy kc6 instructions Route: IV; Rate: per protocol; Site: left forearm; 13:07 Follow up: Response: No adverse reaction; IV Status: Completed infusion; IV Intake: [id number] 12:41 Drug: Levalbuterol Inhalation 3.75 mg Inhalation once Route: Inhalation; kc6 13:08 Follow up: Response: No adverse reaction; Wheezing diminished kc6 12:41 Drug: Ipratropium Inhalation Aerosol 0.5 mg Inhalation once Route: Inhalation; kc6 13:08 Follow up: Response: No adverse reaction; Wheezing diminished kc6 12:41 Drug: Aspirin PO Chewable Tablet 81 mg PO once Route: PO; kc6 13:08 Follow up: Response: No adverse reaction kc6 12:42 Drug: NS 0.9% IV (30 ml/kg) 30 ml/kg IV at bolus once; Sepsis Protocol; to be given as kc6 a bolus over 90 minutes Route: IV; Rate: bolus; Site: left forearm; 13:06 Follow up: Response: No adverse reaction; IV Status: Completed infusion; IV Intake: kc6 1687ml 12:42 Drug: MethylPrednisoLONE IVP 125 mg IVP once Route: IVP; Site: left forearm; kc6 13:07 Follow up: Response: No adverse reaction kc6 12:42 Drug: Magnesium Sulfate IVPB 2 grams IVPB once over 2 hrs Route: IVPB; Infused Over: 2 kc6 hrs; Site: left forearm; 13:27 Follow up: Response: No adverse reaction; IV Status: Completed infusion; IV Intake: [id number] 13:33 Drug: Enoxaparin Sub-Q 1 mg/kg Sub-Q once Route: Sub-Q; Site: abdomen; kc6 14:07 Follow up: Response: No adverse reaction kc6 13:33 Drug: Metoprolol PO 25 mg PO once Route: PO; kc6 14:07 Follow up: Response: No adverse reaction; Blood pressure is lowered; Cardiac rhythm kc6 changed 13:36 Drug: levofloxacin IVPB 500 mg 100 ml IVPB once over 60 mins Volume: 100 ml; Route: kc6 IVPB; Infused Over: 60 mins; Site: left forearm; 14:31 Follow up: Response: No adverse reaction; IV Status: Completed infusion; IV Intake: kc6 100ml 14:21 Drug: Levalbuterol Inhalation 1.25 mg Inhalation once Route: Inhalation; kc6 14:31 Follow up: Response: No adverse reaction kc6 Disposition Summary: 09/05/24 12:24 Hospitalization Ordered Notes: Hospitalization Status: Inpatient Admission amna Provider: Claudette Knapp cha [facility] amna Condition: Fair amna Problem: new amna Symptoms: have improved amna Bed/Room Type: Standard amna Room Assignment: 210(09/05/24 14:18) em1 Diagnosis - COPD/ Chronic obstructive pulmonary disease with (acute) exacerbation amna - Dyspnea amna - Chest pain, unspecified amna Forms: - Medication Reconciliation Form amna - SBAR form amna - Leadership Thank You Letter amna Signatures: Dispatcher [employer] EDGil Hankins MD MD cha Waters, Shelly, COMMUNITY HEALTH DIRECTOR-C COMMUNITY HEALTH DIRECTOR-Chandu Solano em1 Merline Bah RN RN kc6 Corrections: (The following items were deleted from the chart) 11:07 11:07 BASIC METABOLIC PANEL+C.LAB.BRZ ordered. EDMS EDMS 11:07 11:07 CBC+H.LAB.BRZ ordered. EDMS EDMS 11:07 11:07 HEPATIC FUNCTION+C.LAB.BRZ ordered. EDMS EDMS 11:07 11:07 MAGNESIUM+C.LAB.BRZ ordered. EDMS EDMS 11: 11:07 PROBNP+C.LAB.BRZ ordered. EDMS EDMS : 11:07 PROTIME (+INR)+COAG.LAB.BRZ ordered. EDMS EDMS 11: 11:07 Troponin High Sensitivity+C.LAB.BRZ ordered. EDMS EDMS : 11:07 LIPASE+C.LAB.BRZ ordered. EDMS EDMS : 11:07 BLOOD CULTURE*+BA.LAB.BRZ ordered. EDMS EDMS : 11:07 Urinalysis+U.LAB.BRZ ordered. EDMS EDMS : 11:07 Influenza Screen (A \T\ B)+BA.LAB.BRZ ordered. EDMS EDMS : 11:07 SARS-COV-2 Antigen Rapid+I.LAB.BRZ ordered. EDMS EDMS : 11:07 D-DIMER+COAG.LAB.BRZ ordered. EDMS EDMS 14:18 12:24 amna em1
[2024-09-05] MEDS ORDERED: METHYLPREDNISOLONE 125 MG INJ ONE (12:27)
[2024-09-05] MEDS ORDERED: CEFTRIAXONE 1000 MG/VIAL ONE (12:27)
[2024-09-05] MEDS ORDERED: LEVALBUTEROL 1.25 MG/3 ML NEB ONE ×2 (12:27→14:16)
[2024-09-05] MEDS ORDERED: IPRATROPIUM BROM 0.5MG/2.5ML ONE (12:27)
[2024-09-05] MEDS ORDERED: Magnesium Sulfate 2gm IVPB 2 G/50 ML BAG IV ONE (12:28)
[2024-09-05] MEDS ORDERED: ASPIRIN 81 MG CHEWABLE TABLET ONE (12:28)
[2024-09-05] MEDS ORDERED: Levofloxacin500mg IV 500 MG/100 ML BAG IV ONE (12:28)
[2024-09-05] MEDS ORDERED: NA CHLORIDE 0.9% 500 ML ONE (12:28)
[2024-09-05] MEDS ORDERED: METOPROLOL TAR 25 MG TAB ONE (13:30)
[2024-09-05] MEDS ORDERED: ENOXAPARIN 60 MG/0.6 ML SQ ONE (13:30)
--- NOTE | 2024-09-05 13:31 | P.HP ---
Certification for Inpatient Patient admitted to: Observation With expected LOS: <2 Midnights Patient will require the following post-hospital care: None Practitioner: I am a practitioner with admitting privileges, knowledge of patient current condition, hospital course, and medical plan of care. Services: Services provided to patient in accordance with Admission requirements found in Title 42 Section 412.3 of the Code of Federal Regulations Patient History Date of Service: 09/05/24 Reason for admission: Chronic respiratory failure chronic respiratory failure and chest pain History of Present Illness: Ms. Henderson is a 63-year-old female with a past medical history of COPD, CAD, status post VT with stent, CVA, GERD, hypertension, and alcoholism. She presented to the emergency department this morning with left anterior chest wall and upper abdominal pain that waxes and wanes. She has home O2 at 4 L as she has lots of tubing, nebs, and sees Dr. Lucero. Imaging in the emergency department shows COPD without an acute process suspected. Sepsis labs are pending. Flu and COVID swabs are negative and her CBC is unremarkable. On exam she is frail with truncal obesity on a neb treatment. She has a splint to her right arm status post humeral fracture 5 years ago which is nonhealing. In the emergency department, she received a large normal saline bolus, Solu-Medrol 125 mg IV, magnesium 2 g IV, Pepcid 20 mg IV, Rocephin 1 g IV and Levaquin 500 mg IV. Her respiratory status seems chronic without exacerbation and we will continue to await cardiac enzymes. No EKG available for review, vital signs 173/51, 109, 20, 98% on 4 L O2 afebrile at 98.4. We will admit her for observation for serial enzymes and continued evaluation of her respiratory status. Allergies No Known Allergies Allergy (Verified 10/16/22 21:54) Home medications list reviewed: Yes Home Medications: Tiotropium Br/Olodaterol HCl [Stiolto Respimat Inhaler (60)] 2 puff IH DAILY 03/09/22 Ipratropium/Albuterol Sulfate [Iprat-Albut 0.5-3(2.5) mg/3 ml] 3 ml IH Q6HP PRN #60 ampul.neb 03/12/22 Aspirin [Aspirin EC 81 MG] 81 mg PO DAILY #30 tab 09/13/22 Acetaminophen [Tylenol Extra Strength] 500 mg PO Q6H 10/16/22 Omeprazole 1 tab PO DAILY 10/16/22 predniSONE [Prednisone] 10 mg PO DAILY 10/16/22 Hydrocodone 5/APAP 325 [[place] 5/325] 1 tab PO Q6H PRN 3 Days #12 tab 10/18/22 hydroCHLOROthiazide [Hydrochlorothiazide*] 12.5 mg PO DAILY #30 cap 10/18/22 Amlodipine [Norvasc*] 5 mg PO DAILY 30 Days #30 tab 02/20/24 Codeine/APAP [Tylenol #3*] 1 tab PO Q6H PRN #15 tab 02/20/24 - Past Medical/Surgical History Has patient received pneumonia vaccine in the past: No Diabetic: No -: Hypertension -: Coronary artery disease, stent 2016 -: COPD on home oxygen and chronic steroids -: hx Tobacco abuse - quit in 2015 -: GERD -: Gastric ulcers -: Alcohol abuse -: -: Stent placement Psychosocial/ Personal History: The patient is . She has 5 children. S he lives with her daughter and has O2 at home - Family History Mother -: Heart disease, Cancer - Social History Smoking Status: Former smoker Alcohol use: Yes CD- Drugs: No Caffeine use: Yes Place of Residence: Home Review of Systems 10-point ROS is otherwise unremarkable General: As per HPI Eyes: Unremarkable ENT: Unremarkable Respiratory: Shortness of Breath Cardiovascular: Chest Pain Gastrointestinal: Unremarkable Genitourinary: Unremarkable Musculoskeletal: Unremarkable Integumentary: Unremarkable Neurological: Unremarkable Lymphatics: Unremarkable Physical Examination - Physical Exam General: Alert, In no apparent distress, Oriented x3, Cachectic (With truncal obesity) HEENT: Atraumatic, Normocephalic, Other (Conjunctival pallor) Neck: Supple Respiratory: Normal air movement Cardiovascular: No edema, Regular rate/rhythm (Mild tachycardia) Capillary refill: <2 Seconds Gastrointestinal: Soft and benign, No tenderness, Ascites Musculoskeletal: No clubbing, Other (Nonhealing fracture to right humerus) Integumentary: No rashes, Other (Pallor) Neurological: Normal speech, Normal affect Lymphatics: No axilla or inguinal lymphadenopathy External genitalia: Deferred Rectal: Deferred - Studies Laboratory Data (last 24 hrs) 09/05/24 09/05/24 11:30 11:30 WBC 7.90 Hgb 12.3 Hct 39.1 Plt Count 263 PT 9.8 INR 0.87 Microbiology Data (last 24 hrs): 09/05/24 11:30 Nasopharnyx Influenza Type A Antigen Screen - Final 09/05/24 11:30 Nasopharnyx Influenza Type B Antigen Screen - Final Assessment and Plan - Plan Chest pain with hypertension Patient admitted with chest pain. Reports some shortness of breath, denies ill contacts, fever, worsening in respiratory status Plan: Serial troponins and EKG pain control Nitro prn Aspirin 81 mg p.o. daily Imdur Lovenox 30 mg subcu daily COPD Continue prednisone 15 mg p.o. daily Neb treatments every 4 to 6 hours as needed continue home inhalers O2 per protocol Hypertension Monitor and trend with current blood pressure medications and addition of Imdur GERD Protonix EtOH misuse Alcohol withdrawal protocol MVI Thiamine Monitor and trend mag level VTE/GI prophylaxis - Advance Directives Does patient have a Living Will: No Does patient have a Durable POA for Healthcare: No
[2024-09-05 13:52] LABS: ALT/SGPT 19 U/L (13-56); AST/SGOT 22 U/L (15-37); Albumin 2.8 g/dL (3.4-5.0); Alkaline Phosphatase 68 U/L (45-117); Anion Gap 10.7 mEq/L (5.0-15.0); BUN Blood Urea Nitrogen 5 mg/dL (7-18); Bicarbonate 36 mEq/L (21-32); Bilirubin Direct < 0.2 mg/dL (0-0.2); Bilirubin Indirect, Calculated 0.1 mg/dL (0.2-0.8); Bilirubin Total 0.3 mg/dL (0.2-1.0); Globulin 2.9 g/dL (2.3-3.5); Glomerular Filtration Rate 123 ml/min (=/>90); Glucose Level 109 mg/dL (74-106); Lipase 16 U/L (13-75); Magnesium 2.6 mg/dL (1.6-2.4); NT PRO-BNP 51 pg/mL (<125); Potassium 3.7 mEq/L (3.5-5.1); Protein, Total 5.7 g/dL (6.4-8.2); Sodium Level 134 mEq/L (136-145); Troponin High Sensitivity 23.9 pg/mL (<58.9)
[2024-09-05 15:47] VITALS: BMI 23.4
[2024-09-05] MEDS: FUROSEMIDE 40 MG TABLET PO SCH (16:54)
[2024-09-05] MEDS: ISOSORBIDE MONO SR 60 MG TAB PO SCH (16:55)
[2024-09-05] MEDS: ENOXAPARIN 30 MG/0.3 ML SQ SCH (16:55)
[2024-09-05] MEDS: ALBUTEROL 2.5 MG/3 ML NEB SOL NEB PRN (20:37)
[2024-09-05] MEDS: IPRATROPIUM BROM 0.5MG/2.5ML NEB SCH (20:37)
[2024-09-05] MEDS: SUCRALFATE 1 GM TABLET PO SCH (21:24)
[2024-09-05] MEDS: ATORVASTATIN 20 MG TAB PO SCH (21:24)
--- NOTE | 2024-09-05 21:27 | RAD REPORT ---
EXAMINATION: ONE VIEW CHEST XR CLINICAL INDICATION: chest pain TECHNIQUE: Frontal chest projection is submitted. Examination is limited by patient positioning and t echnique. COMPARISON: 09/05/2024 FINDINGS: The lungs are emphysematous but grossly clear. The heart is upper limit of normal in size. Ununited c hronic right humeral fracture again seen. IMPRESSION: COPD without an acute process suspected.
--- NOTE | 2024-09-05 21:28 | RAD REPORT ---
EXAM: XR of the abdomen HISTORY: Abdominal pain abd pain COMPARISON: 02/17/2024 FINDINGS: XR of the abdomen shows a nonspecific, nonobstructive bowel gas pattern. No suspicious theo cifications are seen. The bones are unremarkable. Prominent aortoiliac atherosclerosis. IMPRESSION: No acute finding demonstrated.
[2024-09-05] MEDS: HYDROMORPHONE HCL 1 MG/ML INJ IV ONE ×2 (22:48→23:44)
[2024-09-06] MEDS: HYDROMORPHONE HCL 1 MG/ML INJ IV ONE (04:58)
[2024-09-06 05:42] LABS: Absolute Lymphocytes (CBC) 0.5 K/uL (0.7-4.9); Absolute Monocytes 0.4 K/uL (0.1-1.3); Absolute Neutrophil 2.9 K/uL (1.8-8.0); Basophils % 0.2 % (0-1.3); Hematocrit 34.1 % (36.0-45.0); Lymphocytes % 13.6 % (15.3-44.8); MCH 28.5 pg (27.0-35.0); MCHC 32.2 g/dL (32.0-36.0); MCV 88.5 fL (80-100); MPV 7.1 fL (7.6-11.3); Monocytes % 9.8 % (3.3-12.3); Neutrophils % 76.4 % (41.7-73.7); Platelets 208 thou/uL (152-406); RBC Red Blood Cell Count 3.85 M/uL (3.86-4.86); Red Cell Distribution Width 12.9 % (12.1-15.2)
[2024-09-06 05:43] LABS: PT Prothrombin Time 10.3 SECONDS (9.4-12.5); Protime INR 0.92
[2024-09-06 06:22] LABS: Anion Gap 11.6 mEq/L (5.0-15.0); Bilirubin Total 0.5 mg/dL (0.2-1.0); Potassium 3.6 mEq/L (3.5-5.1); Troponin High Sensitivity 10.4 pg/mL (<58.9)
[2024-09-06] MEDS: PANTOPRAZOLE 40MG TABLET PO SCH ×2 (08:34→20:07)
[2024-09-06] MEDS: MULTIVITAMIN TAB PO SCH (08:34)
[2024-09-06] MEDS: THIAMINE HCL 100 MG TABLET PO SCH (08:34)
[2024-09-06] MEDS: ASPIRIN EC 81 MG TAB PO SCH (08:34)
[2024-09-06] MEDS: predniSONE 20 MG TAB PO SCH (08:34)
[2024-09-06] MEDS: AMLODIPINE 5 MG TAB PO SCH (08:34)
[2024-09-06] MEDS: CEFTRIAXONE 1,000 MG in NA CHLORIDE 0.9% 50 ML IVPB SCH (08:35)
[2024-09-06] MEDS ORDERED: ISOSORBIDE MONO SR 60 MG TAB PO SCH (09:00)
[2024-09-06] MEDS ORDERED: predniSONE 10 MG TAB PO SCH (09:00)
--- NOTE | 2024-09-06 09:41 | P.CNS ---
Date of Consult: 09/06/24 Chief Complaint: Chronic respiratory failure chronic respiratory failure and chest pain History of Present Illness: Patient with PMH of advanced COPD on home oxygen, presented with chest pain/epigastric pain that has been going on for months or even years, denies left side chest pain, no radiation, mid epigastric radiate to left and right upper quadrants, sharp in nature, reproducible on exam and get worse with deep breathing, denies any other cardiac symptoms. Allergies No Known Allergies Allergy (Verified 10/16/22 21:54) Home medications list reviewed: Yes Home Medications: Ipratropium/Albuterol Sulfate [Iprat-Albut 0.5-3(2.5) mg/3 ml] 3 ml IH Q6HP PRN #60 ampul.neb 03/12/22 Acetaminophen [Tylenol Extra Strength] 500 mg PO Q6H 10/16/22 Omeprazole 2 cap PO DAILY 10/16/22 predniSONE [Prednisone] 10 mg PO DAILY 10/16/22 Alendronate Sodium 1 tab PO EVERY 7TH DAY 09/05/24 Aspirin [Aspirin EC 81 MG] 1 tab PO DAILY 09/05/24 - Past Medical/Surgical History Diabetic: No -: Hypertension -: Coronary artery disease, stent 2016 -: COPD on home oxygen and chronic steroids -: hx Tobacco abuse - quit in 2016 -: GERD -: Gastric ulcers -: Alcohol abuse -: -: Stent placement Psychosocial/ Personal History: The patient is . She has 5 children. She lives with her daughter and has O2 at home - Family History Mother Medical History: Heart disease, Cancer - Social History Smoking Status: Unknown if ever smoked Alcohol use: Yes CD- Drugs: No Caffeine use: Yes Place of Residence: Home Review of Systems 10-point ROS is otherwise unremarkable Physical Examination Temp Pulse Resp BP Pulse Ox 98.2 F 94 H 16 146/60 H 92 09/06/24 04:00 09/06/24 08:35 09/06/24 05:28 09/06/24 08:35 09/06/24 05:28 General: Alert, In no apparent distress HEENT: Atraumatic, PERRLA, Mucous membr. moist/pink, EOMI, Sclerae nonicteric Neck: Supple, 2+ carotid pulse no bruit, No LAD, Without JVD or thyroid abnormality Respiratory: Clear to auscultation bilaterally, Normal air movement Cardiovascular: Regular rate/rhythm, Normal S1 S2 Gastrointestinal: Normal bowel sounds, No tenderness Musculoskeletal: No tenderness Integumentary: No rashes Neurological: Normal gait, Normal speech, Normal tone, Normal affect Lymphatics: No axilla or inguinal lymphadenopathy Laboratory Data (last 24 hrs) 09/05/24 09/05/24 09/05/24 13:25 11:30 11:30 WBC 7.90 Hgb 12.3 Hct 39.1 Plt Count 263 PT 9.8 INR 0.87 Sodium 134 L Potassium 3.7 BUN 5 L Creatinine < 0.25 L Glucose 109 H Magnesium 2.6 H Total Bilirubin 0.3 AST 22 ALT 19 Alkaline Phosphatase 68 Lipase 16 - Problems (1) Chest pain Onset Date: 12/22/17 Current Visit: No Status: Acute Plan: Atypical, non cardiac in nature, upper epigastric region and reproducible on exam. continue to trend cardiac enzymes for 3 sets and get echo, if normal then consider GI consult to rule out gastric causes for pain. Qualifiers: Chest pain type: chest pain on breathing Qualified Code(s): R07.1 - Chest pain on breathing; R07.81 - Pleurodynia (2) Coronary artery disease Current Visit: No Status: Chronic Plan: continue ASA 81 mg daily and lipitor 40 mg daily Qualifiers: (3) Hypertension Current Visit: No Status: Chronic Plan: continue patient current medications and monitor Qualifiers: Hypertension type: primary hypertension Qualified Code(s): I10 - Essential (primary) hypertension
--- NOTE | 2024-09-06 11:03 | P.PN ---
Subjective Date of Service: 09/07/24 Chief Complaint: Chronic respiratory failure chronic respiratory failure and chest pain Reports shortness of breath with exertion, reports chronic pain, Review of Systems 10-point ROS is otherwise unremarkable General: As per HPI Physical Examination - Vital Signs Temperature: 97.1 F Blood Pressure: 146/60 Pulse: 94 Respirations: 16 Pulse Ox (%): 91 - Physical Exam General: Alert, Mild distress HEENT: Atraumatic, Normocephalic Neck: 2+ carotid pulse no bruit, JVD not distended Respiratory: Expiratory wheezes, Inspiratory wheezes Cardiovascular: Normal pulses, Regular rate/rhythm, Normal S1 S2 Capillary refill: <2 Seconds Gastrointestinal: Normal bowel sounds, Soft and benign Musculoskeletal: Other (Nonhealing fracture to right humerus) Integumentary: No breakdown, No significant lesion Neurological: Normal speech, Normal strength at 5/5 x4 extr - Studies Laboratory Data (last 24 hrs) 09/06/24 09/06/24 09/06/24 05:13 05:13 05:13 WBC 3.80 L Hgb 11.0 L D Hct 34.1 L Plt Count 208 PT 10.3 INR 0.92 Sodium 129 L D Potassium 3.6 BUN 5 L Creatinine 0.36 L Glucose 162 H Magnesium Total Bilirubin 0.5 AST 22 ALT 23 Alkaline Phosphatase 73 Triglycerides 116 Cholesterol 267 H HDL Cholesterol 146 H Cholesterol/HDL Ratio 1.83 Lipase 12 L 09/05/24 09/05/24 09/05/24 20:27 13:25 11:30 WBC Hgb Hct Plt Count PT 9.8 INR 0.87 Sodium 134 L Potassium 3.7 BUN 5 L Creatinine < 0.25 L Glucose 109 H Magnesium 2.6 H Total Bilirubin 0.3 AST 22 ALT 19 Alkaline Phosphatase 68 Triglycerides Cholesterol HDL Cholesterol Cholesterol/HDL Ratio Lipase Cancelled 16 09/05/24 11:30 WBC 7.90 Hgb 12.3 Hct 39.1 Plt Count 263 PT INR Sodium Potassium BUN Creatinine Glucose Magnesium Total Bilirubin AST ALT Alkaline Phosphatase Triglycerides Cholesterol HDL Cholesterol Cholesterol/HDL Ratio Lipase Microbiology Data (last 24 hrs): 09/05/24 11:30 Nasopharnyx Influenza Type A Antigen Screen - Final 09/05/24 11:30 Nasopharnyx Influenza Type B Antigen Screen - Final Assessment And Plan - Plan - Plan Atypical chest pain Cardiology consult-notes negative, patient needs follow-up with cardiology after discharge Echo ordered Serial troponins and EKG pain control Nitro prn Aspirin 81 mg p.o. daily, Imdur Lovenox 30 mg subcu daily Acute hypoxic respiratory failure secondary to COPD exacerbation/atelectasis COPD exacerbation Home O2 dependent Continue prednisone 15 mg p.o. daily Neb treatments every 4 to 6 hours as needed continue home inhalers O2 per protocol CT no evidence of PE, extensive COPD, noted atelectasis, mucus in the right middle lobe EtOH use disorder Alcohol withdrawal protocol MVI, Thiamine Monitor and trend mag level Hypertension Monitor and trend with current blood pressure medications and addition of Imdur GERD Protonix VTE/GI prophylaxis disabilities services officer consult for discharge - Advance Directives Does patient have a Living Will: No Does patient have a Durable POA for Healthcare: No Discharge Plan: Home - Code Status/Comfort Care Code Status: Full Code Critical Care: No Time Spent Managing PTS Care (In Minutes): 35
--- NOTE | 2024-09-06 11:08 | EKG ---
Test Date: 2024-09-05 Test Time: 13:02:33 Pot Fluxer: ISMA MEASUREMENT RESULTS: Intervals: Rate: 102 SD: 146 QRSD: 80 QT: 340 QTc: 443 [place]: P: 77 SD: 146 QRS: 71 T: 66 INTERPRETIVE STATEMENTS: Sinus tachycardia Otherwise normal ECG Compared to ECG 02/18/2024 00:01:56 Sinus rhythm no longer present Ventricular premature complex(es) no longer present Electronically Signed On 09-06-24 11:07:01 AIR COMPRESSOR ENGINEER by Alberto Jackson
--- NOTE | 2024-09-06 12:59 | ECHO ---
HEIGHT: 5 ft 1 in WEIGHT: 124 lb 0.16 oz DATE OF STUDY: 09/06/[address]: Paulina Humphries 2-DIMENSIONAL: YES M.MODE: YES DOPPLER: YES COLOR FLOW: YES TDS: NO PORTABLE: YES DEFINITY: NO BUBBLE STUDY: NO DIAGNOSIS: HYPERTENSION CARDIAC HISTORY: CATHERIZATION: NO SURGERY: NO PROSTHETIC VALVE: NO PACEMAKER: NO MEASUREMENTS (cm) DIASTOLIC (NORMALS) SYSTOLIC (NORMALS) IVSd 0.9 (0.6-1.2) LA Diam 2.1 (1.9-4.0) LVEF 60-65% LVIDd 4.2 (3.5-5.7) LVIDs 3.2 (2.0-3.5) %FS 24% LVPWd 1.0 (0.6-1.2) Ao Diam 2.6 (2.0-3.7) 2 DIMENSIONAL ASSESSMENT: RIGHT ATRIUM: NORMAL LEFT ATRIUM: NORMAL RIGHT VENTRICLE: NORMAL LEFT VENTRICLE: NORMAL TRICUSPID VALVE: NORMAL MITRAL VALVE: NORMAL PULMONIC VALVE: NORMAL AORTIC VALVE: NORMAL PERICARDIAL EFFUSION: NONE AORTIC ROOT: NORMAL LEFT VENTRICULAR WALL MOTION: NORMAL. DOPPLER/COLOR FLOW: NORMAL. COMMENTS: 1. NORMAL LEFT VENTRICULAR SYSTOLIC FUNCTION. LEFT VENTRICULAR EJECTION FRACTION 60-65%. NORMAL WALL MOTION. 2. NORMAL DIASTOLIC FUNCTION. TECHNOLOGIST: GIANNA HANNAH
[2024-09-06] MEDS: HYDROMORPHONE HCL 0.5 MG/0.5 ML INJ IV ONE (13:47)
--- NOTE | 2024-09-06 14:30 | RAD REPORT ---
EXAMINATION: CTA CHEST PE CLINICAL INDICATION: Chest pain TECHNIQUE: 100 cc 370 Isovue administered intravenously. This examination was performed according to an angiographic protocol with 3D post-processing. This involves 3D reconstructions, MIPs, volume rendered images and/or shaded surface rendering. One or more of the following dose reduction techniqu es were used: Automated exposure control, adjustment of the mA and/or kV according to patient size, and/or iterative reconstruction. Unless otherwise specified, incidental findings do not require dedic ated imaging follow-up. [id number]. COMPARISON: 2022 FINDINGS: A pulmonary embolus is not seen. An aortic aneurysm not noted. No pleural effusion. No pericardial effusion. Mucous is present within a right middle lobe bronchus. Right middle lobe atelectasis is present COPD IMPRESSION: No evidence of a pulmonary embolism Mucous right middle lobe bronchus results in right middle lobe atelectasis
[2024-09-06] MEDS: CODEINE 12mg/APAP 120mg PER 5 ML UCUP PO PRN (20:07)
[2024-09-07] MEDS ORDERED: ALBUTEROL 2.5 MG/3 ML NEB SOL NEB PRN (08:32)
[2024-09-07] MEDS: ACETYLCYST 20% 4 ML VIAL IH SCH (09:00)
[2024-09-07] MEDS: IPRATROPIUM BROM 0.5MG/2.5ML NEB SCH (09:00)
[2024-09-07] MEDS ORDERED: COLLAGENASE 30 GM OINTMENT TOP SCH (10:00)
--- NOTE | 2024-09-07 12:16 | P.DS ---
Admission Date: 09/06/24 Discharge Date: 09/09/24 Disposition: ROUTINE DISCHARGE Discharge Condition: GOOD Reason for Admission: Chronic respiratory failure chronic respiratory failure and chest pain Brief History of Present Illness: Ms. Henderson is a 63-year-old female with a past medical history of COPD, CAD, status post MA with stent, CVA, GERD, hypertension, and alcoholism. She presented to the emergency department this morning with left anterior chest wall and upper abdominal pain that waxes and wanes. She has home O2 at 4 L as she has lots of tubing, nebs, and sees Dr. Lucero. Imaging in the emergency department shows COPD without an acute process suspected. Sepsis labs are pending. Flu and COVID swabs are negative and her CBC is unremarkable. On exam she is frail with truncal obesity on a neb treatment. She has a splint to her right arm status post humeral fracture 5 years ago which is nonhealing. In the emergency department, she received a large normal saline bolus, Solu-Medrol 125 mg IV, magnesium 2 g IV, Pepcid 20 mg IV, Rocephin 1 g IV and Levaquin 500 mg IV. Her respiratory status seems chronic without exacerbation and we will continue to await cardiac enzymes. No EKG available for review, vital signs 173/51, 109, 20, 98% on 4 L O2 afebrile at 98.4. We will admit her for observation for serial enzymes and continued evaluation of her respiratory status. Physical Exam General: Alert, In no apparent distress, Oriented x3 HEENT: Atraumatic, Normocephalic, Neck: Supple Respiratory: Normal air movement Cardiovascular: No edema, Regular rate/rhythm Capillary refill: <2 Seconds Gastrointestinal: Soft and benign, No tenderness, Musculoskeletal: No clubbing, Other (Nonhealing fracture to right humerus) Integumentary: No rashes, Other (Pallor) Neurological: Normal speech, Normal affect Lymphatics: No axilla or inguinal lymphadenopathy Hospital Course: Ms. Henderson is a 63-year-old female with a past medical history of COPD, CAD, status post MA with stent, CVA, GERD, hypertension, and alcoholism. She presented to the emergency department this morning with left anterior chest wall and upper abdominal pain that waxes and wanes. She has home O2 at 4 L as she has lots of tubing, nebs, and sees Dr. Lucero. Imaging in the emergency department shows COPD without an acute process suspected. Sepsis labs are pending. Flu and COVID swabs are negative and her CBC is unremarkable. On exam she is frail with truncal obesity on a neb treatment. She has a splint to her right arm status post humeral fracture 5 years ago which is nonhealing. In the emergency department, she received a large normal saline bolus, Solu-Medrol 125 mg IV, magnesium 2 g IV, Pepcid 20 mg IV, Rocephin 1 g IV and Levaquin 500 mg IV. Her respiratory status seems chronic without exacerbation and we will continue to await cardiac enzymes. No EKG available for review, vital signs 173/51, 109, 20, 98% on 4 L O2 afebrile at 98.4. He was treated for COPD exacerbation, discharged home on inhalers, nebulizers, patient has 4 L of home oxygen O2 already ordered, discharged home on prednisone, Librium, do not drink alcohol on Librium, Librium for alcohol cessation. Hypertension, started on Cozaar, discharged home on Cozaar 1 p.o. daily, may take as needed hydralazine for blood pressure uncontrolled with systolic over 160, needs to follow-up with PCP in 1 week Assessment Atypical chest pain troponins negative, patient needs to follow-up with cardiology outpatient test She was noted to have acute hypoxic failure, COPD exacerbation, treated with steroids, oxygen, nebulizers. Improved EtOH use disorder, treated with Librium, thiamine, multivitamin after discharge, recommend alcohol cessation stable for discharge Essential hypertension resume home antihypertensive Atypical chest pain likely secondary from COPD pleuritic chest pain GERD resume home PPI Imaging, resume home antihypertensive Continue home medicines as previously prescribed GOAL: Clear understanding of disease process INSTRUCTIONS: Physician Discharge Instructions: -Follow-up with PCP in 1 to 2 weeks -Please call Dr. Markham at [phone] if any questions regarding hospital stay -Please call nursing station at [phone] if any nursing or medication questions -Return to the emergency room if symptoms worsen Diet: ADA, low sodium Activity: Fall precautions Vital Signs/Physical Exam: Temp Pulse Resp BP Pulse Ox 98.2 F 109 H 22 H 154/72 H 97 09/07/24 08:00 09/07/24 08:00 09/07/24 08:00 09/07/24 08:00 09/07/24 08:00 Laboratory Data at Discharge: WBC 3.80 thou/uL (4.3-10.9) L 09/06/24 05:13 Hgb 11.0 g/dL (12.0-15.0) L D 09/06/24 05:13 Hct 34.1 % (36.0-45.0) L 09/06/24 05:13 Plt Count 208 thou/uL (152-406) 09/06/24 05:13 PT 10.3 SECONDS (9.4-12.5) 09/06/24 05:13 INR 0.92 09/06/24 05:13 Sodium 129 mEq/L (136-145) L D 09/06/24 05:13 Potassium 3.6 mEq/L (3.5-5.1) 09/06/24 05:13 BUN 5 mg/dL (7-18) L 09/06/24 05:13 Creatinine 0.36 mg/dL (0.55-1.02) L 09/06/24 05:13 Glucose 162 mg/dL (74-106) H 09/06/24 05:13 Magnesium 2.6 mg/dL (1.6-2.4) H 09/05/24 13:25 Total Bilirubin 0.5 mg/dL (0.2-1.0) 09/06/24 05:13 AST 22 U/L (15-37) 09/06/24 05:13 ALT 23 U/L (13-56) 09/06/24 05:13 Alkaline Phosphatase 73 U/L (45-117) 09/06/24 05:13 Triglycerides 116 mg/dL (<150) 09/06/24 05:13 Cholesterol 267 mg/dL (<200) H 09/06/24 05:13 HDL Cholesterol 146 mg/dL (40-60) H 09/06/24 05:13 Cholesterol/HDL Ratio 1.83 09/06/24 05:13 Lipase 12 U/L (13-75) L 09/06/24 05:13 Home Medications: Ipratropium/Albuterol Sulfate [Iprat-Albut 0.5-3(2.5) mg/3 ml] 3 ml IH Q6HP PRN #60 ampul.neb 03/12/22 Acetaminophen [Tylenol Extra Strength] 500 mg PO Q6H 10/16/22 Omeprazole 2 cap PO DAILY 10/16/22 predniSONE [Prednisone] 10 mg PO DAILY 10/16/22 Alendronate Sodium 1 tab PO EVERY 7TH DAY 09/05/24 Aspirin [Aspirin EC 81 MG] 1 tab PO DAILY 09/05/24 Atorvastatin Calcium [Lipitor] 20 mg PO BEDTIME 30 Days #30 tab 09/07/24 Cefdinir [Cefdinir*] 300 mg PO BID 7 Days #14 cap 09/07/24 Fluticasone Propion/Salmeterol [Wixela 250-50 Inhub] 1 each IH BID 30 Days #1 inh 09/07/24 Guaif/Dm [Robitussin Dm*] 10 ml PO BID 10 Days #1 bottle 09/07/24 Hydralazine [Apresoline*] 25 mg PO TID PRN 30 Days #90 tab 09/07/24 Losartan Potassium [Cozaar] 50 mg PO DAILY 30 Days #30 tablet 09/07/24 chlordiazePOXIDE HCl [Librium] 25 mg PO Q8HP PRN 7 Days #21 cap 09/07/24 predniSONE [Deltasone] 20 mg PO BID 5 Days #10 tab 09/07/24 New Medications: Hydralazine [Apresoline*] 25 mg PO TID PRN 30 Days #90 tab PRN Reason: Titrate To Sbp (Must Define) Cefdinir [Cefdinir*] 300 mg PO BID 7 Days #14 cap Losartan Potassium [Cozaar] 50 mg PO DAILY 30 Days #30 tablet chlordiazePOXIDE HCl [Librium] 25 mg PO Q8HP PRN 7 Days #21 cap PRN Reason: Agitation Atorvastatin Calcium [Lipitor] 20 mg PO BEDTIME 30 Days #30 tab predniSONE [Deltasone] 20 mg PO BID 5 Days #10 tab Guaif/Dm [Robitussin Dm*] 10 ml PO BID 10 Days #1 bottle Fluticasone Propion/Salmeterol [Wixela 250-50 Inhub] 1 each IH BID 30 Days #1 inh Physician Discharge Instructions: Ms. Henderson is a 63-year-old female with a past medical history of COPD, CAD, status post MA with stent, CVA, GERD, hypertension, and alcoholism. She presented to the emergency department this morning with left anterior chest wall and upper abdominal pain that waxes and wanes. She has home O2 at 4 L as she has lots of tubing, nebs, and sees Dr. Lucero. Imaging in the emergency department shows COPD without an acute process suspected. Sepsis labs are pending. Flu and COVID swabs are negative and her CBC is unremarkable. On exam she is frail with truncal obesity on a neb treatment. She has a splint to her right arm status post humeral fracture 5 years ago which is nonhealing. In the emergency department, she received a large normal saline bolus, Solu-Medrol 125 mg IV, magnesium 2 g IV, Pepcid 20 mg IV, Rocephin 1 g IV and Levaquin 500 mg IV. Her respiratory status seems chronic without exacerbation and we will continue to await cardiac enzymes. No EKG available for review, vital signs 173/51, 109, 20, 98% on 4 L O2 afebrile at 98.4. He was treated for COPD exacerbation, discharged home on inhalers, nebulizers, patient has 4 L of home oxygen O2 already ordered, discharged home on prednisone, Librium, do not drink alcohol on Librium, Librium for alcohol cessation. Hypertension, started on Cozaar, antilipid, discharged home on Cozaar 1 p.o. daily, may take as needed hydralazine for blood pressure uncontrolled with systolic over 160, needs to follow-up with PCP in 1 week Assessment Atypical chest pain troponins negative, patient needs to follow-up with cardiology outpatient, She was noted to have acute hypoxic failure, treated with steroids, oxygen, nebulizers. Improved EtOH use disorder, treated with Librium, thiamine, multivitamin after discharge, recommend alcohol cessation stable for [id number] with GI after discharge Essential hypertension resume home antihypertensive Atypical chest pain likely secondary from COPD GERD resume home PPI Continue home medicines as previously prescribed GOAL: Clear understanding of disease process INSTRUCTIONS: Physician Discharge Instructions: -Follow-up outpatient for GI for abdominal pain, EtOH -Follow-up with Dr. Elizalde for COPD exacerbation -Follow-up with cardiology for additional chest pain workup -Follow-up with PCP in 1 to 2 weeks -Please call Dr. Markham at [phone] if any questions regarding hospital stay -Please call nursing station at [phone] if any nursing or medication questions -Return to the emergency room if symptoms worsen Diet: ADA, low sodium Activity: Fall precautions Followup: Sd Lucero MD [ACTIVE - CAN ADMIT] - Andrés Forbes MD [ACTIVE - CAN ADMIT] - González Guzman MD [ACTIVE - CAN ADMIT] - Rhett Santillan MD [ACTIVE - CAN ADMIT] - Time spent managing pt's care (in minutes): 45
[2024-09-07] MEDS: NA CHLORIDE 0.9% 1,000 ML IV SCH (16:54)
[2024-09-07] MEDS: METHYLPREDNISOLONE 40 MG INJ IV SCH (17:00)
--- NOTE | 2024-09-07 17:30 | P.PN ---
Date of Service: 09/07/24 Subjective Reports shortness of breath with exertion, encouraged to get out of bed to chair daily with meals, incentive spirometery She refused to discharge home today, discussed with Dr. Markham, Review of Systems 10-point ROS is otherwise unremarkable Physical Examination - Vital Signs Reviewed - Physical Exam General: Alert, oriented x 3 HEENT: Atraumatic, Normocephalic Respiratory: Diminished, rhonchi, nonproductive cough, shortness of breath with exertion Cardiovascular: Normal pulses, Regular rate/rhythm, Normal S1 S2 Capillary refill: <2 Seconds Gastrointestinal: Normal bowel sounds, Soft and benign Musculoskeletal: Other (Nonhealing fracture to right humerus) Neurological: Normal speech, Normal strength at 5/5 x4 extr Assessment And Plan - Plan - Plan Atypical chest pain Cardiology consult-notes negative, patient needs follow-up with cardiology after discharge Echo ordered Serial troponins and EKG pain control Nitro prn Aspirin 81 mg p.o. daily, Imdur Lovenox 30 mg subcu daily Acute hypoxic respiratory failure secondary to COPD exacerbation/atelectasis COPD exacerbation Home O2 dependent Continue prednisone 15 mg p.o. daily Neb treatments every 4 to 6 hours as needed continue home inhalers O2 4 L, she is on baseline oxygen at home 4 L, incentive spirometer, CT no evidence of PE, extensive COPD, noted atelectasis, mucus in the right middle lobe EtOH use disorder Alcohol withdrawal protocol MVI, Thiamine Monitor and trend mag level Hypertension Monitor and trend with current blood pressure medications and addition of Imdur GERD Protonix VTE/GI prophylaxis access services assistant consult for discharge - Advance Directives Does patient have a Living Will: No Does patient have a Durable POA for Healthcare: No Discharge Plan: Home - Code Status/Comfort Care Code Status: Full Code Critical Care: No Time Spent Managing PTS Care (In Minutes): 30
[2024-09-07] MEDS: HYDROCODONE/CHLORPHEN 5 ML/OSYR PO PRN (20:57)
[2024-09-08 07:11] LABS: Absolute Lymphocytes (CBC) 0.4 K/uL (0.7-4.9); Absolute Monocytes 0.2 K/uL (0.1-1.3); Absolute Neutrophil 4.3 K/uL (1.8-8.0); Basophils % 0.4 % (0-1.3); Eosinophils % 0.1 % (0-4.4); Hematocrit 36.4 % (36.0-45.0); Hemoglobin 12.2 g/dL (12.0-15.0); MCH 28.9 pg (27.0-35.0); MCHC 33.5 g/dL (32.0-36.0); MCV 86.1 fL (80-100); MPV 7.4 fL (7.6-11.3); Monocytes % 3.7 % (3.3-12.3); Neutrophils % 86.8 % (41.7-73.7); Nucleated Red Blood Cells % 0.1 % (0-0); Platelets 223 thou/uL (152-406); RBC Red Blood Cell Count 4.23 M/uL (3.86-4.86); Red Cell Distribution Width 13.2 % (12.1-15.2)
[2024-09-08 07:37] LABS: Albumin 3.1 g/dL (3.4-5.0); Albumin/Globulin Ratio 0.9 (1.1-1.8); Anion Gap 6.7 mEq/L (5.0-15.0); Bilirubin Total 0.7 mg/dL (0.2-1.0); Globulin 3.3 g/dL (2.3-3.5); Magnesium 1.8 mg/dL (1.6-2.4); Phosphorus 1.7 mg/dL (2.5-4.9); Potassium 2.7 mEq/L (3.5-5.1); Protein, Total 6.4 g/dL (6.4-8.2); Thyroid Stimulating Hormone 1.02 uIU/mL (0.358-3.740)
[2024-09-08] MEDS: NA CHLORIDE 0.9% 1,000 ML IV SCH (08:37)
[2024-09-08] MEDS: LOSARTAN POTASSIUM 50 MG TABLET PO SCH (08:38)
[2024-09-08] MEDS: predniSONE 20 MG TAB PO SCH (08:38)
[2024-09-08 09:38] LABS: Blood Morphology Comment NOTED (NOT SEEN); Platelet Estimate ADEQ; Stomatocytes 2+; White Blood Cell Scan OK (OK)
--- NOTE | 2024-09-08 15:54 | RAD REPORT ---
EXAMINATION: ONE VIEW CHEST XR CLINICAL INDICATION: Female, 63 years old.,sob TECHNIQUE: Frontal chest projection is submitted. Examination is limited by patient positioning and t echnique. COMPARISON: 09/05/2024 FINDINGS: The lungs are diffusely emphysematous but grossly clear apart from stable right basilar chronic inter stitial changes. No pneumothorax or sizable effusion. The heart is normal in size. Mediastinal contours are unremarkable. Deformity of the maximal right humeral shaft, relating to fracture malunio n, grossly stable although incompletely included. IMPRESSION: No acute intrathoracic abnormalities. Apical findings as above.
[2024-09-08] MEDS: POTASS/SODIUM PHOSPHATE 1 PKT POWD.PACK PO ONE (16:22)
[2024-09-08] MEDS ORDERED: FENTANYL CITR 100 MCG/2 ML IV PRN (18:28)
[2024-09-08 22:27] LABS: Anion Gap 6.6 mEq/L (5.0-15.0); Magnesium 1.5 mg/dL (1.6-2.4)
[2024-09-08 22:29] LABS: Potassium 2.6 mEq/L (3.5-5.1)
[2024-09-08] MEDS ORDERED: POTASSIUM CL 40 MEQ in NA CHLORIDE 0.9% 500 ML IV SCH (23:00)
[2024-09-08] MEDS: KCL 20 MEQ/100 mL IVPB 20 MEQ/100 ML BAG IV SCH (23:11)
[2024-09-08] MEDS: POTASSIUM 25 MEQ EFFERV TAB PO ONE (23:11)
[2024-09-09] MEDS: Magnesium Sulfate 2gm IVPB 2 G/50 ML BAG IV ONE (00:55)
[2024-09-09] MEDS: POTASSIUM 25 MEQ EFFERV TAB PO ONE (00:55)
[2024-09-09] MEDS: HYDRALAZINE HCL 25 MG TABLET PO PRN (01:02)
[2024-09-09 05:22] LABS: Albumin 2.8 g/dL (3.4-5.0)
[2024-09-09 05:31] LABS: Phosphorus 1.4 mg/dL (2.5-4.9)
[2024-09-09 05:33] VITALS: TEMP 97.9
--- NOTE | 2024-09-09 07:22 | P.PN ---
Date of Service: 09/08/24 Subjective Reports shortness of breath with exertion, encouraged to get out of bed to chair daily with meals, incentive spirometery No reported anxiety, alcohol withdrawal symptoms Review of Systems 10-point ROS is otherwise unremarkable Physical Examination - Vital Signs Reviewed - Physical Exam General: Alert, oriented x 3, no acute distress noted HEENT: Atraumatic, Normocephalic Respiratory: Diminished, rhonchi, nonproductive cough, shortness of breath with exertion Cardiovascular: Normal pulses, Regular rate/rhythm, Normal S1 S2 Capillary refill: <2 Seconds Gastrointestinal: Normal bowel sounds, nontender Musculoskeletal: Other (Nonhealing fracture to right humerus) Neurological: Normal speech, Normal strength at 5/5 x4 extr Assessment And Plan - Plan - Plan Atypical chest pain Cardiology consult-notes negative, patient needs follow-up with cardiology after discharge Serial troponins and EKG pain control Nitro prn Aspirin 81 mg p.o. antihypertensive Lovenox 30 mg subcu daily Acute hypoxic respiratory failure secondary to COPD exacerbation/atelectasis COPD exacerbation Home O2 dependent Continue prednisone 15 mg p.o. daily Neb treatments every 4 to 6 hours as needed continue home inhalers O2 4 L, she is on baseline oxygen at home 4 L, incentive spirometer, CT no evidence of PE, extensive COPD, noted atelectasis, mucus in the right middle lobe EtOH use disorder Alcohol withdrawal protocol MVI, Thiamine, Librium Monitor and trend mag level Hypertension Monitor and trend with current blood pressure medications and addition of Imdur GERD Protonix VTE/GI prophylaxis medical services assistant consult for discharge - Advance Directives Does patient have a Living Will: No Does patient have a Durable POA for Healthcare: No Discharge Plan: Home - Code Status/Comfort Care Code Status: Full Code Critical Care: No Time Spent Managing PTS Care (In Minutes): 30
[2024-09-09] MEDS: acetaZOLAMIDE 250 MG TAB PO SCH (08:34)
[2024-09-09] MEDS: SODIUM PHOSPHATE 15 MM in NA CHLORIDE 0.9% 250 ML IV ONE (08:55)
[2024-09-09 08:58] VITALS: BP 156/72
[2024-09-09 09:09] VITALS: O2SAT 98
[2024-09-09] MEDS ORDERED: LORAZEPAM 0.5 MG TABLET PO ONE (10:40)
--- NOTE | 2024-09-10 13:48 | EKG ---
Test Date: 2024-09-05 Test Time: 21:02:04 Rail Track Layer: JOHNNY MEASUREMENT RESULTS: Intervals: Rate: 94 IL: 124 QRSD: 72 QT: 358 QTc: 447 [place]: P: 67 IL: 124 QRS: 69 T: 83 INTERPRETIVE STATEMENTS: Normal sinus rhythm Normal ECG Compared to ECG 09/05/2024 13:02:33 Sinus tachycardia no longer present Electronically Signed On 09-10-24 13:39:11 UTILITY DIVISION PROJECT MANAGER by González Guzman
--- NOTE | 2024-09-10 13:48 | EKG ---
Test Date: 2024-09-05 Test Time: 21:05:03 [employer] Lay Up Worker: JOHNNY MEASUREMENT RESULTS: Intervals: Rate: 95 NJ: 128 QRSD: 74 QT: 366 QTc: 459 Rhodelia: P: 69 NJ: 128 QRS: 67 T: 81 INTERPRETIVE STATEMENTS: Normal sinus rhythm Normal ECG Compared to ECG 09/05/2024 21:02:04 No significant changes Electronically Signed On 09-10-24 13:39:09 MEDICAL HEALTH RESEARCHER by González Guzman
== END 2024-09-09 12:05 | disposition home or self-care (01) | DRG 189 ==
LOC: ER 10:45 → ERHOLD 14:00 → 2ND 14:30 → OBSVTOIN 09-06 09:54
PROVIDERS: ADMIT Internal Medicine; ATTEND Hospitalist
PROC: 5A09357 Assistance with Respiratory Ventilation, Less than 24 Consecutive Hours, Continuous Positive Airway Pressure (ICD-10-PCS; principal; 2024-09-06)
DX: J96.01 Acute respiratory failure with hypoxia (principal); J44.1 Chronic obstructive pulmonary disease with (acute) exacerbation; R64 Cachexia; K21.9 Gastro-esophageal reflux disease without esophagitis; I10 Essential (primary) hypertension; F10.20 Alcohol dependence, uncomplicated; I25.2 Old myocardial infarction; I25.10 Atherosclerotic heart disease of native coronary artery without angina pectoris; Z95.5 Presence of coronary angioplasty implant and graft; Z79.82 Long term (current) use of aspirin; Z99.81 Dependence on supplemental oxygen; Z68.23 Body mass index [BMI] 23.0-23.9, adult; Z11.52 Encounter for screening for COVID-19; Z79.52 Long term (current) use of systemic steroids; Z86.73 Personal history of transient ischemic attack (TIA), and cerebral infarction without residual deficits; Z79.899 Other long term (current) drug therapy; Z87.891 Personal history of nicotine dependence
CPT/HCPCS: 36415; 71045; 71275; 74018; 80048; 80053; 80061; 80069; 80076; 83605; 83690; 83735; 83880; 84100; 84132; 84439; 84443; 84484; 85025; 85379; 85610; 87040; 87804; 87811; 93005; 93306; 94010; 94640; 96361; 96365; 96367; 96372; 96375; 99285; G0378; J0696; J1171; J1650; J2919; J3475; J3480; J3590; J7030; J7040; J7050; J7512; J7608; J7613; J7614; J7644; Q9967

== ENCOUNTER 2024-12-24 17:41 | Inpatient (IN) | payer OTHER ==
[2024-12-24] MEDS ORDERED: CEFTRIAXONE 1000 MG/VIAL ONE (18:38)
[2024-12-24] MEDS ORDERED: METHYLPREDNISOLONE 125 MG INJ ONE (18:38)
[2024-12-24] MEDS ORDERED: FAMOTIDINE 20 MG/2 ML VIAL IV ONE (18:38)
[2024-12-24] MEDS ORDERED: LEVALBUTEROL 1.25 MG/3 ML NEB ONE ×2 (18:38→20:25)
[2024-12-24] MEDS ORDERED: IPRATROPIUM BROM 0.5MG/2.5ML ONE (18:38)
[2024-12-24] MEDS ORDERED: NA CHLORIDE 0.9% 100 ML ONE (18:38)
[2024-12-24 18:42] LABS: Absolute Lymphocytes (CBC) 1.6 K/uL (0.7-4.9); Absolute Monocytes 0.4 K/uL (0.1-1.3); Absolute Neutrophil 5.9 K/uL (1.8-8.0); Basophils % 0.6 % (0-1.3); Eosinophils % 0.1 % (0-4.4); Hematocrit 37.5 % (36.0-45.0); Hemoglobin 12.6 g/dL (12.0-15.0); Lymphocytes % 19.6 % (15.3-44.8); MCH 29.9 pg (27.0-35.0); MCHC 33.7 g/dL (32.0-36.0); MCV 88.7 fL (80-100); MPV 7.5 fL (7.6-11.3); Monocytes % 5.6 % (3.3-12.3); Neutrophils % 74.1 % (41.7-73.7); Nucleated Red Blood Cells % 0.1 % (0-0); Platelets 319 thou/uL (152-406); RBC Red Blood Cell Count 4.22 M/uL (3.86-4.86); Red Cell Distribution Width 13.2 % (12.1-15.2)
--- NOTE | 2024-12-24 18:49 | RAD REPORT ---
EXAMINATION: ONE VIEW CHEST XR CLINICAL INDICATION: COPD TECHNIQUE: Frontal chest projection is submitted. Examination is limited by patient positioning and t echnique. COMPARISON: 09/08/2024 FINDINGS: Mild pulmonary edema. Small bilateral pleural effusions. The heart is mildly to moderately enlarged. No displaced fractures identified. IMPRESSION: Mild CHF.
[2024-12-24 19:02] LABS: ALT/SGPT 16 U/L (13-56); AST/SGOT 13 U/L (15-37); Albumin 3.6 g/dL (3.4-5.0); Albumin/Globulin Ratio 1.1 (1.1-1.8); Alkaline Phosphatase 72 U/L (45-117); Anion Gap 7.6 mEq/L (5.0-15.0); BUN Blood Urea Nitrogen 5 mg/dL (7-18); Bicarbonate 39 mEq/L (21-32); Bilirubin Total 0.3 mg/dL (0.2-1.0); Globulin 3.3 g/dL (2.3-3.5); Glomerular Filtration Rate 119 ml/min (=/>90); Glucose Level 92 mg/dL (74-106); Magnesium 1.6 mg/dL (1.6-2.4); NT PRO-BNP 47 pg/mL (<125); Potassium 4.6 mEq/L (3.5-5.1); Protein, Total 6.9 g/dL (6.4-8.2); Sodium Level 127 mEq/L (136-145); Troponin High Sensitivity 10.2 pg/mL (<58.9)
[2024-12-24 19:20] LABS: Bilirubin Direct < 0.2 mg/dL (0-0.2); Bilirubin Indirect, Calculated 0.1 mg/dL (0.2-0.8)
--- NOTE | 2024-12-24 19:38 | RAD REPORT ---
EXAM: CT brain without contrast HISTORY: DIZZINESS COMPARISON: None TECHNIQUE: Multiple contiguous axial images were obtained and a CT of the brain without contrast. Sag ittal and coronal reformats were performed. One or more of the following dose reduction techniques were used: Automated exposure control, adjust ment of the mA and/or kV according to patient size, and/or iterative reconstruction. FINDINGS: No evidence of hydrocephalus, intracranial hemorrhage, or extra-axial fluid collection. The brain is normal in morphology. No evidence of midline shift or areas of brain edema. The calvarium is intact. The visualized paranasal sinuses and mastoid air cells are essentially clear . IMPRESSION: No evidence of acute intracranial abnormality.
--- NOTE | 2024-12-24 19:53 | ER ---
Nurse's Notes [facility] Name: Ansley Henderson Age: 64 yrs Sex: Female : 1960 Arrival Date: 12/24/2024 Time: 17:41 Bed 20 Private MD: Diagnosis: COPD/ Chronic obstructive pulmonary disease with (acute) exacerbation;Dizziness and giddiness;Essential (primary) hypertension;Acute and chronic respiratory failure with hypercapnia;Acute and chronic respiratory failure with hypoxia Presentation: 12/24 17:43 Chief complaint: EMS states: toned out for SOB. Patient has some pushed respirations me1 and tripod positioning with o2 at 3 lpm via nc. Coronavirus screen: Vaccine status: Patient reports being unvaccinated. Ebola Screen: No symptoms or risks identified at this time. Initial Sepsis Screen: Does the patient meet any 2 criteria? No. Patient's initial sepsis screen is negative. Does the patient have a suspected source of infection? No. Patient's initial sepsis screen is negative. Risk Assessment: Do you want to hurt yourself or someone else? Patient reports no desire to harm self or others. Onset of symptoms is unknown. 17:43 Method Of Arrival: EMS: [facility] me1 17:43 Acuity: ENMANUEL 3 me1 Triage Assessment: 17:45 General: Appears distressed, unkempt, well developed, well nourished, Behavior is me1 cooperative, appropriate for age, anxious, Reports sob that started over the past few days and progressed to get worse. wears o2 at 3lpm via nc at home at all times. Pain: Denies pain. EENT: No signs and/or symptoms were reported regarding the EENT system. Neuro: Level of Consciousness is awake, alert, obeys commands, Oriented to person, place, time, situation, Appropriate for age. Cardiovascular: Patient's skin is warm and dry. Respiratory: Reports shortness of breath at rest on exertion Airway is patent Respiratory effort is even, labored, Respiratory pattern is tachypnea Onset: The symptoms/episode began/occurred yesterday, the patient has moderate shortness of breath. GI: No signs and/or symptoms were reported involving the gastrointestinal system. : No signs and/or symptoms were reported regarding the genitourinary system. Derm: Skin is intact, is healthy with good turgor, Skin is pink, warm \T\ dry. Musculoskeletal: No signs and/or symptoms reported regarding the musculoskeletal system. Historical: - Allergies: 17:45 No Known Allergies; me1 - PMHx: 17:45 Alcoholism; CAD; COPD; CVA; GERD; HEART STENT; Hypertension; Myocardial infarction; me1 - Immunization history:: Adult Immunizations up to date. - Infectious Disease History:: Denies. - Social history:: Smoking status: Patient/guardian denies using tobacco, but has a distant history of tobacco abuse. Screenin:48 [facility] ED Fall Risk Assessment (Adult) History of falling in the last 3 months, me1 including since admission No falls in past 3 months (0 pts) Confusion or Disorientation No (0 pts) Intoxicated or Sedated No (0 pts) Impaired Gait No (0 pts) Mobility Assist Device Used No (0 pt) Altered Elimination No (0 pt) Score/Fall Risk Level 0 - 2 = Low Risk Maintained a safe environment, Provided non-skid footwear, Hourly rounding (assess needs \T\ fall precautionary measures) done. Abuse screen: Denies threats or abuse. Nutritional screening: No deficits noted. Tuberculosis screening: No symptoms or risk factors identified. Assessment: 17:48 General: See triage assessment. Cardiovascular: Rhythm is regular. Respiratory: Airway me1 is patent Respiratory effort is even, labored, Respiratory pattern is regular, tachypnea Breath sounds with wheezes bilaterally. 21:40 General: Patient refused ABG. . me1 Vital Signs: 17:43 BP 179 / 76; Pulse 81; Resp 22; Temp 98.2; Pulse Ox 100% on 3 lpm NC; Weight 50.35 kg; me1 Height 5 ft. 1 in. ; Pain 0/10; 18:00 BP 168 / 76; Pulse 79; Resp 22; Pulse Ox 100% on 3 lpm NC; me1 19:00 BP 168 / 99; Pulse 82; Resp 16; Pulse Ox 100% on 3 lpm NC; me1 20:00 BP 174 / 83; Pulse 90; Resp 16; Pulse Ox 100% on 3 lpm NC; me1 21:00 BP 197 / 73; Pulse 91; Resp 20; Pulse Ox 98% 3 lpm ; me1 21:42 BP 168 / 62; Pulse 94; Resp 16; Pulse Ox 99% 3 lpm ; me1 17:43 Body Mass Index 20.97 (50.35 kg, 154.94 cm) me1 17:43 Pain Scale: Adult me1 ED Course: 17:42 Patient arrived in ED. me1 17:45 Triage completed. me1 17:45 Arm band placed on Patient placed in an exam room. me1 17:48 Patient has correct armband on for positive identification. Bed in low position. Call [facility] light in reach. Side rails up X 1. Provided Education on: POC. Verbalized understanding.. Client placed on continuous cardiac and pulse oximetry monitoring. NIBP monitoring applied. ekg monitor tech on. Pulse ox on. NIBP on. 17:48 No provider procedures requiring assistance completed. me1 18:08 Gil Anderson MD is Attending Physician. [facility] 18:12 Shikha Grullon, MESHA is Primary Nurse. me1 18:28 Initial lab(s) drawn, by ia, by EMS personnel. sent to lab. First set of blood cultures me1 drawn by ia. 18:32 Inserted saline lock: 22 gauge in left antecubital area, using aseptic technique. me1 18:32 Lactate w/ 2H reflex if indic. Sent. me1 18:32 Blood Culture Adult (2) Sent. me1 18:32 Basic Metabolic Panel Sent. me1 18:32 CBC with Diff Sent. me1 18:32 D-Dimer Sent. me1 18:32 LFT's Sent. me1 18:32 Magnesium Sent. me1 18:32 NT PRO-BNP Sent. me1 18:32 Troponin HS Sent. me1 18:37 Second set of blood cultures drawn by ia. me1 18:47 XRAY Chest (1 view) In Process Unspecified. EDMS 19:34 Head Brain Wo Cont In Process Unspecified. EDMS 19:51 Prince Orourke MD is Hospitalizing Provider. [facility] 21:24 Urine collected: clean catch specimen, clear. me1 22:17 Patient admitted, IV remains in place. [email or web address] Administered Medications: 18:47 Drug: Levalbuterol Inhalation 3.75 mg Inhalation once Route: Inhalation; me1 19:08 Follow up: Response: No adverse reaction; Wheezing diminished me1 18:47 Drug: Ipratropium Inhalation Aerosol 0.5 mg Inhalation once Route: Inhalation; me1 19:08 Follow up: Response: No adverse reaction; Wheezing diminished me1 18:47 Drug: Famotidine IVP 20 mg IVP once; dilute with 10 mL 0.9% NaCl; give over 2 minutes me1 Route: IVP; Site: left antecubital; 19:08 Follow up: Response: No adverse reaction me1 18:48 Drug: Rocephin IV 1 grams IV at per protocol once; Given slow IV push per pharmacy me1 instructions Route: IV; Rate: per protocol; Site: left antecubital; 19:08 Follow up: Response: No adverse reaction; IV Status: Completed infusion me1 18:48 Drug: MethylPrednisoLONE IVP 125 mg IVP once Route: IVP; Site: left antecubital; me1 19:08 Follow up: Response: No adverse reaction me1 20:31 Drug: Furosemide IVP 20 mg IVP once; give over 2 minutes Route: IVP; Site: left ia1 antecubital; 21:23 Follow up: Response: No adverse reaction me1 20:35 Drug: Levalbuterol Inhalation 1.25 mg Inhalation once Route: Inhalation; me1 21:23 Follow up: Response: No adverse reaction; Wheezing diminished me1 20:36 Drug: Levalbuterol Inhalation 1.25 mg Inhalation once Route: Inhalation; me1 21:24 Follow up: Response: No adverse reaction; Wheezing diminished me1 Medication: 17:48 VIS not applicable for this client. me1 Outcome: 19:53 Decision to Hospitalize by Provider. amna 22:16 Admitted to Med/surg accompanied by tech, via wheelchair, room 208, with oxygen, Report jj7 called to [place] FAXED BY SHIKHA ZIMMER 22:16 Condition: good 22:17 Patient left the ED. jj7 Signatures: Dispatcher [employer] Gil Hwang MD MD cha Johnson, Juwairiyah, RN RN jj7 Eddleman, Michelle, MESHA RN me1 Corrections: (The following items were deleted from the chart) 19:22 19:00 BP 168 / 99; Pulse 82bpm; Resp 16bpm; Pulse Ox 100%; me1 me1
--- NOTE | 2024-12-24 19:53 | EDPHYS ---
Physician Documentation [facility] Name: Ansley Henderson Age: 64 yrs Sex: Female : 1960 Arrival Date: 12/24/2024 Time: 17:41 Bed 20 Private MD: ED Physician Gil Anderson HPI: 12/24 19:40 This 64 yrs old Female presents to ER via EMS with complaints of Shortness Of amna Breath. 19:40 The patient has shortness of breath at rest, with light activity. Onset: The amna symptoms/episode began/occurred 2 day(s) ago. Duration: The symptoms are continuous, and are steadily getting worse. The patient's shortness of breath has no apparent modifying factors. Associated signs and symptoms: Pertinent positives: non-productive cough. Severity of symptoms: in the emergency department the symptoms are unchanged. The patient has experienced similar episodes in the past, multiple times. Historical: - Allergies: 17:45 No Known Allergies; me1 - PMHx: 17:45 Alcoholism; CAD; COPD; CVA; GERD; HEART STENT; Hypertension; Myocardial infarction; me1 - Immunization history:: Adult Immunizations up to date. - Infectious Disease History:: Denies. - Social history:: Smoking status: Patient/guardian denies using tobacco, but has a distant history of tobacco abuse. ROS: 19:45 Constitutional: Negative for fever, chills, and weight loss, Eyes: Negative for injury, amna pain, redness, and discharge, ENT: Negative for injury, pain, and discharge, Neck: Negative for injury, pain, and swelling, Cardiovascular: Negative for chest pain, palpitations, and edema, Abdomen/GI: Negative for abdominal pain, nausea, vomiting, diarrhea, and constipation, Back: Negative for injury and pain, : Negative for injury, bleeding, discharge, and swelling, MS/Extremity: Negative for injury and deformity, Skin: Negative for injury, rash, and discoloration, Neuro: Negative for headache, weakness, numbness, tingling, and seizure, Psych: Negative for depression, anxiety, suicide ideation, homicidal ideation, and hallucinations, Allergy/Immunology: Negative for hives, rash, and allergies, Endocrine: Negative for neck swelling, polydipsia, polyuria, polyphagia, and marked weight changes, Hematologic/Lymphatic: Negative for swollen nodes, abnormal bleeding, and unusual bruising, 19:45 Respiratory: Positive for cough, with no reported sputum, orthopnea, shortness of breath, at rest. Exam: 19:46 Constitutional: This is a well developed, well nourished patient who is awake, alert, amna and in no acute distress. Head/Face: Normocephalic, atraumatic. Eyes: Pupils equal round and reactive to light, extra-ocular motions intact. Lids and lashes normal. Conjunctiva and sclera are non-icteric and not injected. Cornea within normal limits. Periorbital areas with no swelling, redness, or edema. ENT: Nares patent. No nasal discharge, no septal abnormalities noted. Tympanic membranes are normal and external auditory canals are clear. Oropharynx with no redness, swelling, or masses, exudates, or evidence of obstruction, uvula midline. Mucous membranes moist. Neck: Trachea midline, no thyromegaly or masses palpated, and no cervical lymphadenopathy. Supple, full range of motion without nuchal rigidity, or vertebral point tenderness. No Meningismus. Chest/axilla: Normal chest wall appearance and motion. Nontender with no deformity. No lesions are appreciated. Cardiovascular: Regular rate and rhythm with a normal S1 and S2. No gallops, murmurs, or rubs. Normal PMI, no JVD. No pulse deficits. Abdomen/GI: Soft, non-tender, with normal bowel sounds. No distension or tympany. No guarding or rebound. No evidence of tenderness throughout. Back: No spinal tenderness. No costovertebral tenderness. Full range of motion. Female : Normal external genitalia. Skin: Warm, dry with normal turgor. Normal color with no rashes, no lesions, and no evidence of cellulitis. MS/ Extremity: Pulses equal, no cyanosis. Neurovascular intact. Full, normal range of motion., bilateral aka Neuro: Awake and alert, GCS 15, oriented to person, place, time, and situation. Cranial nerves II-XII grossly intact. Motor strength 5/5 in all extremities. Sensory grossly intact. Cerebellar exam normal. Normal gait. Psych: Awake, alert, with orientation to person, place and time. Behavior, mood, and affect are within normal limits. 19:46 Respiratory: mild respiratory distress is noted, Respirations: labored breathing, that is mild, Breath sounds: decreased breath sounds, that are moderate, are located in both bases, Respiratory rate: 22 19:46 Musculoskeletal/extremity: ROM: no acute changes, intact in all extremities, full active range of motion, full passive range of motion, Circulation is intact in all extremities. Sensation intact. Compartment Syndrome exam of affected extremity: is normal. Weight bearing: able to fully bear weight, DVT Exam: No signs of deep vein thrombosis. no pain, no swelling, no tenderness, negative Homans' sign noted on exam, no appreciated bluish discoloration, no erythema, no increased warmth, 20:00 ECG was reviewed by the Attending Physician. [facility] Vital Signs: 17:43 BP 179 / 76; Pulse 81; Resp 22; Temp 98.2; Pulse Ox 100% on 3 lpm NC; Weight 50.35 kg; ar1 Height 5 ft. 1 in. ; Pain 0/10; 18:00 BP 168 / 76; Pulse 79; Resp 22; Pulse Ox 100% on 3 lpm NC; ar1 19:00 BP 168 / 99; Pulse 82; Resp 16; Pulse Ox 100% on 3 lpm NC; ar1 20:00 BP 174 / 83; Pulse 90; Resp 16; Pulse Ox 100% on 3 lpm NC; ar1 21:00 BP 197 / 73; Pulse 91; Resp 20; Pulse Ox 98% 3 lpm ; ar1 21:42 BP 168 / 62; Pulse 94; Resp 16; Pulse Ox 99% 3 lpm ; ar1 17:43 Body Mass Index 20.97 (50.35 kg, 154.94 cm) [facility] 17:43 Pain Scale: [place] [facility] [place]DM: 18:08 Medical Screening Exam initiated [facility] 19:48 Differential diagnosis: Anemia Bronchitis CHF exacerbation, Chronic Obstructive amna Pulmonary Disease obstructed airway, tracheal injury, bronchitis, flu, URI, Myocardial Infarction pneumonia, Pneumothorax pulmonary edema, Pulmonary Embolism reactive airway disease, Sepsis Unstable Angina. Antibiotic administration: Rocephin and Zithromax given. Differential diagnosis: cardiac arrhythmia, CVA, generalized weakness, hypovolemia, idiopathic dizziness, sepsis, syncope. Immunization status: Pneumococcal vaccine: within last 5 years. Influenza vaccine: within last 5 years. Data reviewed: vital signs, nurses notes, lab test result(s), EKG, radiologic studies, plain films. Consideration of Admission/Observation Patient was admitted/placed on observation. Escalation of care including admission/observation considered. I considered the following discharge prescriptions or medication management in the emergency department Medications were administered in the Emergency Department. See MAR. Independent interpretation of the following test(s) in the Emergency Department EKG: See my EKG interpretation above. Test considered but Not performed: Ultrasound NO 2 D ECHO. Historians other than the Patient: EMS: EMS WELL INFORMED. Parent: . Care significantly affected by the following chronic conditions: Hypertension, Chronic Obstructive Pulmonary Disease, CAD, COPD, CVA, ETOH, [place], GERD. Counseling: I had a detailed discussion with the patient and/or guardian regarding the historical points, exam findings, and any diagnostic results supporting the discharge/admit diagnosis, the presence of at least one elevated blood pressure reading (>120/80) during this emergency department visit, lab results, radiology results, the need for further work-up and treatment in the hospital. 12/24 18:07 Order name: Basic Metabolic Panel; Complete Time: 19:32 rust 12/24 18:07 Order name: CBC with Diff; Complete Time: :32 rust 12/24 18:07 Order name: D-Dimer; Complete Time: 19:32 rust 12/24 18:07 Order name: LFT's; Complete Time: 19:32 rust 12/24 18:07 Order name: Magnesium; Complete Time: 19:32 rust 12/24 18:07 Order name: NT PRO-BNP; Complete Time: 19:32 rust 12/24 18:07 Order name: Troponin HS; Complete Time: 19:32 rust 12/24 18:10 Order name: Blood Culture Adult (2) [facility] 12/24 18:10 Order name: Lactate w/ 2H reflex if indic.; Complete Time: 19:32 [facility] 12/24 19:32 Order name: Osmolality, Serum [facility] 12/24 19:32 Order name: Urine Osmolality [facility] 12/24 19:32 Order name: Urine Sodium Random [facility] 12/24 19:40 Order name: ABG [facility] 12/24 18:07 Order name: XRAY Chest (1 view); Complete Time: 19:32 rust 12/24 19:12 Order name: Head Brain Wo Cont; Complete Time: 19:39 EDMS 12/24 18:07 Order name: Cardiac monitoring; Complete Time: 21:24 rust 12/24 18:07 Order name: EKG - Nurse/Tech; Complete Time: 21:24 12/24 18:07 Order name: IV Saline Lock; Complete Time: :12/24 18:07 Order name: Labs collected and sent; Complete Time: 12/24 18:07 Order name: O2 Per Protocol; Complete Time: :12/24 18:07 Order name: O2 Sat Monitoring; Complete Time: : EC:00 Rate is 87 beats/min. Rhythm is regular. QRS [place] is Normal. [place] interval is normal. QRS amna interval is normal. QT interval is normal. No Q waves. T waves are Normal. No ST changes noted. Clinical impression: NSR w/ Non-specific ST/T Changes and No evidence of ischemia. Interpreted by me. Reviewed by me. Administered Medications: 18:47 Drug: Levalbuterol Inhalation 3.75 mg Inhalation once Route: Inhalation; me1 19:08 Follow up: Response: No adverse reaction; Wheezing diminished me1 18:47 Drug: Ipratropium Inhalation Aerosol 0.5 mg Inhalation once Route: Inhalation; me1 19:08 Follow up: Response: No adverse reaction; Wheezing diminished me1 18:47 Drug: Famotidine IVP 20 mg IVP once; dilute with 10 mL 0.9% NaCl; give over 2 minutes me1 Route: IVP; Site: left antecubital; 19:08 Follow up: Response: No adverse reaction me1 18:48 Drug: Rocephin IV 1 grams IV at per protocol once; Given slow IV push per pharmacy me1 instructions Route: IV; Rate: per protocol; Site: left antecubital; 19:08 Follow up: Response: No adverse reaction; IV Status: Completed infusion me1 18:48 Drug: MethylPrednisoLONE IVP 125 mg IVP once Route: IVP; Site: left antecubital; me1 19:08 Follow up: Response: No adverse reaction me1 20:31 Drug: Furosemide IVP 20 mg IVP once; give over 2 minutes Route: IVP; Site: left ar1 antecubital; 21:23 Follow up: Response: No adverse reaction me1 20:35 Drug: Levalbuterol Inhalation 1.25 mg Inhalation once Route: Inhalation; me1 21:23 Follow up: Response: No adverse reaction; Wheezing diminished me1 20:36 Drug: Levalbuterol Inhalation 1.25 mg Inhalation once Route: Inhalation; me1 21:24 Follow up: Response: No adverse reaction; Wheezing diminished me1 Disposition Summary: 12/24/24 19:53 Hospitalization Ordered Notes: Hospitalization Status: Inpatient Admission amna Provider: Prince amna Orourke Condition: Fair amna Problem: new amna Symptoms: have improved amna Bed/Room Type: Standard amna Location: Telemetry/MedSurg (Inpatient)(12/24/24 20:55) ty Room Assignment: 208(12/24/24 20:55) kmf Diagnosis - COPD/ Chronic obstructive pulmonary disease with (acute) exacerbation amna - Dizziness and giddiness amna - Essential (primary) hypertension amna - Acute and chronic respiratory failure with hypercapnia amna - Acute and chronic respiratory failure with hypoxia amna Forms: - Medication Reconciliation Form amna - SBAR form amna - Leadership Thank You Letter amna Signatures: Dispatcher [employer] EDMS Gil Anderson MD MD cha Garcia, Cindy RN RN Michi Newberry MD MD rust Shikha Grullon RN RN ar1 Constance Lamas km David Ryan ty Corrections: (The following items were deleted from the chart) 18:08 18:08 Chest Single View+RAD.RAD.BRZ ordered. EDMS EDMS 18:11 18:11 BLOOD CULTURE*+BA.LAB.BRZ ordered. EDMS EDMS 18:11 18:11 LACTATE+C.LAB.BRZ ordered. EDMS EDMS 18:50 18:50 Head Brain Wo Cont+CT.RAD.BRZ ordered. EDMS EDMS 19:40 19:40 Arterial Blood Gas+RC.LAB.BRZ ordered. EDMS EDMS 20:18 19:53 Telemetry/MedSurg (Inpatient) amna cg 20:18 19:53 amna cg 20:55 20:18 [facility] ER HOLD cg ty 20:55 20:18 ERHOLD- cg ty 20:55 20:55 228 ty kmf
[2024-12-24] MEDS ORDERED: FUROSEMIDE 20 MG/ 2ML VIAL ONE (20:25)
[2024-12-24] MEDS ORDERED: ONDANSETRON 4 MG/2 ML VIAL IV PRN (20:41)
[2024-12-24] MEDS ORDERED: ALBUTEROL 2.5 MG/3 ML NEB SOL NEB PRN ×2 (20:41)
[2024-12-24] MEDS ORDERED: IPRATROPIUM BROM 0.5MG/2.5ML NEB PRN ×2 (20:41)
[2024-12-24] MEDS: FUROSEMIDE 40 MG/4 ML VIAL IV ONE (20:49)
--- NOTE | 2024-12-24 20:50 | P.HP ---
Certification for Inpatient Patient admitted to: Observation With expected LOS: <2 Midnights Practitioner: I am a practitioner with admitting privileges, knowledge of patient current condition, hospital course, and medical plan of care. Services: Services provided to patient in accordance with Admission requirements found in Title 42 Section 412.3 of the Code of Federal Regulations Patient History Date of Service: 12/24/24 Reason for admission: Shortness of breath History of Present Illness: Patient is a 64-year-old female former smoker. She presented to the ER complaining of shortness of breath. She denies any history of structural lung disease. Workup in the ER included chest x-ray which is concerning for pulmonary edema and mild CHF. She has a normal BNP and appears euvolemic. Lung auscultation with evidence of diminished air entry. She is being admitted for COPD exacerbation. Pulmonary embolism was ruled out by negative D-dimer. Allergies No Known Allergies Allergy (Verified 10/16/22 21:54) Home Medications: Ipratropium/Albuterol Sulfate [Iprat-Albut 0.5-3(2.5) mg/3 ml] 3 ml IH Q6HP PRN #60 ampul.neb 03/12/22 Acetaminophen [Tylenol Extra Strength] 500 mg PO Q6H 10/16/22 Omeprazole 2 cap PO DAILY 10/16/22 predniSONE [Prednisone] 10 mg PO DAILY 10/16/22 Alendronate Sodium 1 tab PO EVERY 7TH DAY 09/05/24 Aspirin [Aspirin EC 81 MG] 1 tab PO DAILY 09/05/24 Atorvastatin Calcium [Lipitor] 20 mg PO BEDTIME 30 Days #30 tab 09/07/24 Cefdinir [Cefdinir*] 300 mg PO BID 7 Days #14 cap 09/07/24 Fluticasone Propion/Salmeterol [Wixela 250-50 Inhub] 1 each IH BID 30 Days #1 inh 09/07/24 Guaif/Dm [Robitussin Dm*] 10 ml PO BID 10 Days #1 bottle 09/07/24 Hydralazine [Apresoline*] 25 mg PO TID PRN 30 Days #90 tab 09/07/24 Losartan Potassium [Cozaar] 50 mg PO DAILY 30 Days #30 tablet 09/07/24 predniSONE [Deltasone] 20 mg PO BID 5 Days #10 tab 09/07/24 Albuterol Neb [Proventil 0.083% Neb Soln] 2.5 mg NEB [id number] PRN #60 amp 09/09/24 Hydrocodone/Chlorphen Polis [Tussionex Oral Susp*] 5 ml PO Q6HP PRN #100 ml 09/09/24 Ipratropium Neb [Atrovent*] 0.5 mg NEB [id number] #60 amp 09/09/24 Sodium Chloride Tab [Sodium Chloride*] 1 gm PO BID #60 tab 09/09/24 acetaZOLAMIDE [Acetazolamide] 125 mg PO DAILY #30 tab 09/09/24 predniSONE [Prednisone*] 20 mg PO DAILY #7 tab 09/09/24 - Past Medical/Surgical History Diabetic: No -: Hypertension -: Coronary artery disease, stent 2016 -: COPD on home oxygen and chronic steroids -: hx Tobacco abuse - quit in 2015 -: GERD -: Gastric ulcers -: Alcohol abuse -: -: Stent placement Psychosocial/ Personal History: The patient is . She has 5 children. She lives with her daughter and has O2 at home - Family History Mother -: Heart disease, Cancer - Social History Alcohol use: Yes CD- Drugs: No Caffeine use: Yes Physical Examination - Physical Exam General: Acute distress HEENT: Atraumatic, Normocephalic Respiratory: Diminished Cardiovascular: No edema, Normal pulses, Regular rate/rhythm, Normal S1 S2 Neurological: Normal speech - Studies Laboratory Data (last 24 hrs) 12/24/24 12/24/24 18:28 18:28 WBC 7.90 Hgb 12.6 Hct 37.5 Plt Count 319 Sodium 127 L Potassium 4.6 BUN 5 L Creatinine 0.28 L Glucose 92 Magnesium 1.6 Total Bilirubin 0.3 AST 13 L ALT 16 Alkaline Phosphatase 72 Assessment and Plan - Problems (Diagnosis) (1) Acute and chronic respiratory failure Current Visit: Yes Status: Acute (2) COPD exacerbation Onset Date: 08/03/18 Current Visit: No Status: Acute (3) Coronary artery disease Current Visit: No Status: Chronic Qualifiers: (4) Former smoker Onset Date: 01/20/17 Current Visit: No Status: Chronic (5) Hypertension Current Visit: No Status: Chronic Qualifiers: - Plan Assessment Patient is a 64-year-old female with a past medical history of coronary disease, hypertension and former tobacco smoker. She is being admitted after she presented with shortness of breath. Chest imaging revealing mild pulmonary edema and small pleural effusion suggestive of mild CHF exacerbation. She has a normal BNP. Pulmonary embolism was ruled out with negative D-dimer. Patient has diminished air entry bilaterally. She also has a history of a COPD exacerbation. During my evaluation, patient was requiring 5 L of oxygen via nasal cannula. Baseline is 4 L. Acute on chronic respiratory failure COPD exacerbation Possible CHF exacerbation Coronary disease Hypertension Former smoker Hyponatremia Plan: Will admit on reservation with telemetry Scheduled Solu-Medrol, as needed DuoNebs IV antibiotics Will also give a trial of Lasix 2D echo to assess for CHF Repeat BMP tomorrow Resume rest of home medication upon reconciliation Wean off oxygen to baseline - Advance Directives Does patient have a Living Will: No Does patient have a Durable POA for Healthcare: No
[2024-12-24] MEDS: DULERA 200/5 (MOMETASONE/FORMOTEROL) INHALER IH SCH (21:17)
[2024-12-24 22:40] VITALS: BMI 20.9
[2024-12-24] MEDS: ACETAMINOPHEN 500 MG TAB PO PRN (23:27)
[2024-12-25 00:16] LABS: Specific Gravity 1.007 (1.005-1.030); Sqamous Epithelial <5 /HPF (None Seen); Urine Bacteria None Seen /HPF (<20); Urine Bilirubin NEGATIVE (Negative); Urine Blood Negative (Negative); Urine Clarity Turbid (Clear); Urine Color Colorless (Yellow); Urine Culture Reflex Order NOT NEEDED; Urine Glucose NEGATIVE (Negative); Urine Ketones TRACE (Negative); Urine Microscopic Reflex YN ORDER UMIC; Urine Mucus Slight /HPF (None Seen); Urine Nitrite NEGATIVE (Negative); Urine Protein NEGATIVE (Negative); Urine RBC None Seen /HPF (None Seen); Urine Urobilinogen Normal (Normal); Urine WBC <5 /HPF (<5)
[2024-12-25 00:17] LABS: Magnesium 1.4 mg/dL (1.6-2.4); Phosphorus 3.2 mg/dL (2.5-4.9)
[2024-12-25] MEDS: METHYLPREDNISOLONE 40 MG INJ IV SCH (01:07)
[2024-12-25 05:39] LABS: Absolute Lymphocytes (CBC) 0.3 K/uL (0.7-4.9); Absolute Neutrophil 4.1 K/uL (1.8-8.0); Basophils % 0.2 % (0-1.3); Hemoglobin 11.8 g/dL (12.0-15.0); Lymphocytes % 5.8 % (15.3-44.8); MCHC 33.6 g/dL (32.0-36.0); MCV 89.2 fL (80-100); MPV 7.8 fL (7.6-11.3); Nucleated Red Blood Cells % 0.1 % (0-0); Platelets 284 thou/uL (152-406); RBC Red Blood Cell Count 3.93 M/uL (3.86-4.86); Red Cell Distribution Width 13.1 % (12.1-15.2)
[2024-12-25 06:04] LABS: Anion Gap 6.2 mEq/L (5.0-15.0); Potassium 4.2 mEq/L (3.5-5.1)
[2024-12-25] MEDS: Magnesium Sulfate 2gm IVPB 2 G/50 ML BAG IV ONE (06:24)
[2024-12-25] MEDS: FLU (Fluarix Triv) TS24-25(6MOS UP)/PF 45 MCG/0.5 ML Syringe IM ONE (07:30)
[2024-12-25] MEDS: PNEUMOCOCCAL VACCINE 0.5 ML IMVAC ONE (08:00)
[2024-12-25] MEDS: ASPIRIN EC 81 MG TAB PO SCH (09:04)
[2024-12-25] MEDS: ENOXAPARIN 40 MG/0.4 ML SQ SCH (09:04)
[2024-12-25 09:25] LABS: Band Neutrophils 1 % (0-1); Blood Morphology Comment NOT SEEN (NOT SEEN); Differential Total Cells Count 100; Lymphocytes 8 % (15-42); Monocytes 1 % (0-10); Platelet Estimate ADEQ; Segmented Neutrophils 90 % (40-80)
[2024-12-25] MEDS ORDERED: NITROGLYCERIN 0.4 MG/TAB SL PRN (10:26)
[2024-12-25] MEDS: PANTOPRAZOLE 40MG TABLET PO SCH (12:16)
[2024-12-25] MEDS: METOPROLOL XL 50 MG TAB PO SCH (12:16)
[2024-12-25] MEDS: ALBUTEROL 2.5 MG/3 ML NEB SOL NEB SCH (14:06)
[2024-12-25] MEDS: IPRATROPIUM BROM 0.5MG/2.5ML NEB SCH (14:06)
--- NOTE | 2024-12-25 15:04 | P.PN ---
Subjective Date of Service: 12/25/24 Chief Complaint: COPD exacerbation Patient is 64 years of age with a history of alcohol abuse and COPD has been out of her inhalers for a while noncompliant ended up in the hospital she complained that she started feeling dizzy whenever she lies down with vertigo also having worsening shortness of breath and cough has not been taking her inhalers for a while denies any fever Review of Systems General: Weakness Respiratory: Cough, Shortness of Breath Neurological: Other (Vertigo) Physical Examination - Vital Signs Temperature: 98.4 F Blood Pressure: 172/74 Pulse: 69 Respirations: 18 Pulse Ox (%): 98 - Physical Exam General: Alert, In no apparent distress, Oriented x3 HEENT: Atraumatic Respiratory: Diminished, Expiratory wheezes Cardiovascular: No edema, Regular rate/rhythm, Normal S1 S2 Gastrointestinal: Normal bowel sounds, Soft and benign Integumentary: No rashes, No breakdown, No significant lesion - Studies Laboratory Data (last 24 hrs) 12/25/24 12/25/24 12/24/24 05:05 05:05 23:18 WBC 4.40 Hgb 11.8 L Hct 35.0 L Plt Count 284 Sodium 131 L D Potassium 4.2 BUN 13 Creatinine 0.35 L Glucose 178 H Phosphorus 3.2 Magnesium 1.4 L Total Bilirubin AST ALT Alkaline Phosphatase 12/24/24 12/24/24 18:28 18:28 WBC 7.90 Hgb 12.6 Hct 37.5 Plt Count 319 Sodium 127 L Potassium 4.6 BUN 5 L Creatinine 0.28 L Glucose 92 Phosphorus Magnesium 1.6 Total Bilirubin 0.3 AST 13 L ALT 16 Alkaline Phosphatase 72 Assessment And Plan - Current Problems (Diagnosis) (1) COPD exacerbation Onset Date: 08/03/18 Current Visit: No Status: Acute Plan: Patient is 64 years of age admitted with weakness vertigo COPD exacerbation noncompliant history of alcohol abuse recurrent falls labs chemistries reviewed CBC is unremarkable chemistries unremarkable as well patient's blood pressure is elevated has been using her medications doubt congestive heart failure as her BNP is less than 125 chest x-ray shows COPD changes blunting of the costophrenic angles plan to admit treat with prednisone start back on her spironolactone inhalers possible discharge tomorrow bicarb is elevated
[2024-12-25] MEDS: THIAMINE HCL 100 MG TABLET PO SCH (16:42)
[2024-12-25] MEDS: predniSONE 20 MG TAB PO SCH (20:10)
[2024-12-26] MEDS ORDERED: ASPIRIN 81 MG CHEWABLE TABLET PO SCH (09:00)
[2024-12-26] MEDS: AMLODIPINE 5 MG TAB PO ONE (09:02)
[2024-12-26 10:07] VITALS: O2SAT 100
--- NOTE | 2024-12-26 10:57 | P.DS ---
Admission Date: 12/25/24 Discharge Date: 12/26/24 Disposition: ROUTINE DISCHARGE Discharge Condition: FAIR Reason for Admission: COPD exacerbation - Problems (1) COPD exacerbation Onset Date: 08/03/18 Current Visit: No Status: Acute Brief History of Present Illness: Patient is 64 years of age admitted with hypertension dizziness COPD exacerbation Hospital Course: Patient is 64 years of age has a history of COPD alcohol abuse admitted with feeling dizzy she ran out of all her medications including her inhalers did not have a chance to fill the inhalers ended up here in the emergency room patient was admitted conservative therapy blood pressure remained high she was treated with bronchodilators and steroids in the time of discharge doing well alert oriented responsive cooperative mild dizziness which seems to have improved her chest shows diminished air entry cardiovascular system heart sounds normal abdomen soft vital signs apart from blood pressure mildly elevated stable patient to be discharged home resume all her medications inhalers and nebulizers called and I have started her on losartan her dose needs to be adjusted in 2 weeks Vital Signs/Physical Exam: Temp Pulse Resp BP Pulse Ox 98.2 F 73 16 182/81 H 99 12/26/24 08:00 12/26/24 08:00 12/26/24 08:00 12/26/24 08:00 12/26/24 08:00 Laboratory Data at Discharge: WBC 4.40 thou/uL (4.3-10.9) 12/25/24 05:05 Hgb 11.8 g/dL (12.0-15.0) L 12/25/24 05:05 Hct 35.0 % (36.0-45.0) L 12/25/24 05:05 Plt Count 284 thou/uL (152-406) 12/25/24 05:05 Sodium 131 mEq/L (136-145) L D 12/25/24 05:05 Potassium 4.2 mEq/L (3.5-5.1) 12/25/24 05:05 BUN 13 mg/dL (7-18) 12/25/24 05:05 Creatinine 0.35 mg/dL (0.55-1.02) L 12/25/24 05:05 Glucose 178 mg/dL (74-106) H 12/25/24 05:05 Phosphorus 3.2 mg/dL (2.5-4.9) 12/24/24 23:18 Magnesium 2.1 mg/dL (1.6-2.4) 12/26/24 05:54 Total Bilirubin 0.3 mg/dL (0.2-1.0) 12/24/24 18:28 AST 13 U/L (15-37) L 12/24/24 18:28 ALT 16 U/L (13-56) 12/24/24 18:28 Alkaline Phosphatase 72 U/L (45-117) 12/24/24 18:28 Home Medications: Albuterol Sulfate [Albuterol Sulfate Hfa] 2 puff IH Q6H 12/25/24 Aspirin [Children's Aspirin] 81 mg PO DAILY 12/25/24 acetaZOLAMIDE [Acetazolamide] 125 mg PO DAILY 12/25/24 Albuterol Neb [Proventil 0.083% Neb Soln] 3 ml NEB SEECOM #300 amp 12/26/24 Fluticasone/Umeclidin/Vilanter [Trelegy Ellipta 100-62.5-25] 1 each IH DAILY 30 Days #60 aero 12/26/24 Losartan/Hydrochlorothiazide [Losartan-Hctz 50-12.5 mg Tab] 1 each PO DAILY 90 Days #90 tab 12/26/24 Omeprazole [Prilosec] 40 mg PO DAILY 90 Days #90 tab 12/26/24 predniSONE [Deltasone*] 10 mg PO DAILY 90 Days #90 tab 12/26/24 New Medications: predniSONE [Deltasone*] 10 mg PO DAILY 90 Days #90 tab Losartan/Hydrochlorothiazide [Losartan-Hctz 50-12.5 mg Tab] 1 each PO DAILY 90 Days #90 tab Omeprazole [Prilosec] 40 mg PO DAILY 90 Days #90 tab Albuterol Neb [Proventil 0.083% Neb Soln] 3 ml NEB SEECOM #300 amp Fluticasone/Umeclidin/Vilanter [Trelegy Ellipta 100-62.5-25] 1 each IH DAILY 30 Days #60 aero Physician Discharge Instructions: Take daily multivitamin Diet: Regular Activity: Ad cathy Followup: NONE,NONE [Primary Care Provider] -
[2024-12-26 11:56] VITALS: BP 145/67; TEMP 97.8
--- NOTE | 2024-12-27 10:53 | EKG ---
Test Date: 2024-12-25 Test Time: 13:51:55 Assistant Professor Of Anthropology: FLASH Musa MEASUREMENT RESULTS: Intervals: Rate: 72 WY: 128 QRSD: 78 QT: 380 QTc: 416 [place]: P: 72 W[place]: 128 QRS: 71 T: 67 INTERPRETIVE STATEMENTS: Normal sinus rhythm Normal ECG Compared to ECG 09/05/2024 21:05:03 No significant changes Electronically Signed On 12-27-24 10:48:30 CDT by Alberto Jackson
--- NOTE | 2024-12-27 10:55 | EKG ---
Test Date: 2024-12-24 Test Time: 19:55:14 Cardiothoracic Surgeon: JUANITO MEASUREMENT RESULTS: Intervals: Rate: 87 CT: 152 QRSD: 70 QT: 352 QTc: 423 [place]: P: 78 CT: 152 QRS: 77 T: 74 INTERPRETIVE STATEMENTS: Normal sinus rhythm Normal ECG Compared to ECG 09/05/2024 21:05:03 No significant changes Electronically Signed On 12-27-24 10:49:58 CDT by Alberto Jackson
== END 2024-12-26 12:29 | disposition home or self-care (01) | DRG 189 ==
LOC: ER 17:41 → ERHOLD 20:41 → 2ND 21:55 → OBSVTOIN 12-25 10:30
PROVIDERS: ADMIT Internal Medicine; ATTEND Internal Medicine Sleep Medicine
DX: J96.21 Acute and chronic respiratory failure with hypoxia (principal); J44.1 Chronic obstructive pulmonary disease with (acute) exacerbation; E87.1 Hypo-osmolality and hyponatremia; J96.22 Acute and chronic respiratory failure with hypercapnia; I11.0 Hypertensive heart disease with heart failure; K21.9 Gastro-esophageal reflux disease without esophagitis; I25.10 Atherosclerotic heart disease of native coronary artery without angina pectoris; I25.2 Old myocardial infarction; R29.6 Repeated falls; Z99.81 Dependence on supplemental oxygen; Z95.5 Presence of coronary angioplasty implant and graft; Z79.52 Long term (current) use of systemic steroids; Z79.82 Long term (current) use of aspirin; Z79.899 Other long term (current) drug therapy; Z87.891 Personal history of nicotine dependence; Z91.199 Patient's noncompliance with other medical treatment and regimen due to unspecified reason
CPT/HCPCS: 36415; 70450; 71045; 80048; 80076; 81001; 82805; 82947; 83605; 83735; 83880; 83930; 83935; 84100; 84300; 84484; 85025; 85379; 87040; 93005; 94640; 94760; 96365; 96375; 99285; G0378; J0696; J1650; J1938; J2919; J3475; J3535; J7512; J7613; J7614; J7644

== ENCOUNTER 2025-06-08 06:06 | Emergency (ER) | payer OTHER ==
[2025-06-08] MEDS ORDERED: KETOROLAC 30 MG/ML INJ ONE (06:15)
--- NOTE | 2025-06-08 06:18 | EDPHYS ---
Physician Documentation [facility] Name: Ansley Henderson Age: 64 yrs Sex: Female : 1960 Arrival Date: 06/08/2025 Time: 06:06 Bed 7 Private MD: ED Physician Al Early HPI: 06/08 06:14 This 64 yrs old Female presents to ER via Unassigned with complaints of Back Pain. sp3 06:14 64-year-old female from [facility] with history of alcoholism, CAD, COPD, CVA, GERD, sp3 hypertension, prior DE, now presents to the ED for chief complaint back pain. Patient had a fall approximately 10 days ago causing compression wedge fractures. She is on [facility] at the [facility]. Her next dose was at 7 AM however she states that her pain was excessive and could not wait and she activated EMS 911 via her private phone who picked her up at 545 and brought her here at 6 AM. She denies any recurrent injury or other review of systems at this time.. Historical: - Allergies: 06:23 No Known Allergies; tb4 - Home Meds: 06:23 albuterol sulfate 90 mcg/actuation Inhl HFAA 1 puff every 4 hours [Active]; lisinopril tb4 20 mg Oral tab 1 tab once daily [Active]; prednisone 20 mg Oral tab 1 tab 2 times per day [Active]; omeprazole 40 mg Oral cpDR 1 cap once daily [Active]; aspirin 81 mg Oral TbEC 1 tab once daily [Active]; ProAir HFA 90 mcg/actuation inhalation HFAA [Active]; ranitidine HCl 150 mg Oral tab 1 tab once daily [Active]; Thiamine Oral [Active]; tiotropium bromide inhalation once daily [Active]; tramadol 50 mg Oral tab 1 tab twice a day [Active]; - PMHx: 06:23 GERD; CVA; COPD; CAD; Alcoholism; Hypertension; Myocardial infarction; HEART STENT; tb4 - PSHx: 06:23 section; tb4 - Immunization history:: Adult Immunizations up to date. - Infectious Disease History:: Denies. - Social history:: Patient/guardian denies using alcohol, street drugs, IV drugs, tobacco products, Smoking status: Patient denies any tobacco usage or history of. ROS: 06:15 Constitutional: Negative for fever, chills, and weight loss, Eyes: Negative for injury, sp3 pain, redness, and discharge, Neck: Negative for injury, pain, and swelling, Cardiovascular: Negative for chest pain, palpitations, and edema, Respiratory: Negative for shortness of breath, cough, wheezing, and pleuritic chest pain, Abdomen/GI: Negative for abdominal pain, nausea, vomiting, diarrhea, and constipation, MS/Extremity: Negative for injury and deformity, Skin: Negative for injury, rash, and discoloration, Neuro: Negative for headache, weakness, numbness, tingling, and seizure, Psych: Negative for depression, anxiety, suicide ideation, homicidal ideation, and hallucinations, Allergy/Immunology: Negative for hives, rash, and allergies, Endocrine: Negative for neck swelling, polydipsia, polyuria, polyphagia, and marked weight changes, Hematologic/Lymphatic: Negative for swollen nodes, abnormal bleeding, and unusual bruising, 06:15 All other systems are negative, Exam: 06:15 Constitutional: This is a well developed, well nourished patient who is awake, alert, sp3 and in no acute distress. Head/Face: Normocephalic, atraumatic. Neck: Trachea midline, no thyromegaly or masses palpated, and no cervical lymphadenopathy. Supple, full range of motion without nuchal rigidity, or vertebral point tenderness. No Meningismus. Chest/axilla: Normal chest wall appearance and motion. Nontender with no deformity. No lesions are appreciated. Cardiovascular: Regular rate and rhythm with a normal S1 and S2. No gallops, murmurs, or rubs. Normal PMI, no JVD. No pulse deficits. Respiratory: Lungs have equal breath sounds bilaterally, clear to auscultation and percussion. No rales, rhonchi or wheezes noted. No increased work of breathing, no retractions or nasal flaring. Abdomen/GI: Soft, non-tender, with normal bowel sounds. No distension or tympany. No guarding or rebound. No evidence of tenderness throughout. Skin: Warm, dry with normal turgor. Normal color with no rashes, no lesions, and no evidence of cellulitis. MS/ Extremity: Pulses equal, no cyanosis. Neurovascular intact. Full, normal range of motion. Neuro: Awake and alert, GCS 15, oriented to person, place, time, and situation. Cranial nerves II-XII grossly intact. Motor strength 5/5 in all extremities. Sensory grossly intact. Cerebellar exam normal. Normal gait. 06:15 Back: Patient has pain to palpation on the mid to lower back. Limited range of motion secondary to pain. This is likely baseline., Vital Signs: 06:12 BP 170 / 75; Pulse 89; Resp 18; Temp 97.8; Pulse Ox 100% on R/A; Weight 47.17 kg; oe Height 5 ft. 1 in. ; 06:23 BP 170 / 77; Pulse 71; Resp 19; Temp 97.9(O); Pulse Ox 100% on R/A; Height 5 ft. 4 in. tb4 ; Pain 10/10; 07:25 BP 156 / 68; Pulse 89; Resp 19; Pulse Ox 97% on 3 lpm NC; iw 06:12 Body Mass Index 19.65 (47.17 kg, 162.56 cm) oe 06:23 Pain Scale: Adult tb4 MDM: 06:12 Medical Screening Exam initiated sp3 06:16 Data reviewed: vital signs, nurses notes, old medical records. ED course: 64-year-old sp3 female with known compression/wedge fractures of the back. Here for pain control. Interval pain management needed and we will administer ketorolac 30 mg IM. She can return to her normal Providence regimen back at the [facility]. No further intervention indicated. Will safely discharge patient home at this time.. Administered Medications: 06:19 Drug: Ketorolac IM 30 mg IM once Route: IM; Site: left deltoid; tb4 07:25 Follow up: Response: No adverse reaction; Pain is decreased iw Disposition Summary: 06/08/25 06:17 Discharge Ordered Notes: Location: Home sp3 Condition: Stable sp3 Diagnosis - Acute on chronic back pain secondary to prior compression fracture sp3 Followup: sp3 - With: Private Physician - When: Upon discharge from the Emergency Department - Reason: Continuance of care Discharge Instructions: - Discharge Summary Sheet sp3 - Spinal Compression Fracture sp3 Forms: - Medication Reconciliation Form sp3 - Antibiotic Education sp3 - Prescription Opioid Use sp3 - Patient Portal Instructions sp3 - Leadership Thank You Letter sp3 Signatures: Al Early MD MD sp3 Bushra Perry RN RN tb4 Flavio, Melissa RN iw
--- NOTE | 2025-06-08 06:18 | ER ---
Nurse's Notes [facility] Name: Ansley Henderson Age: 64 yrs Sex: Female : 1960 Arrival Date: 06/08/2025 Time: 06:06 Bed 7 Private MD: Diagnosis: Acute on chronic back pain secondary to prior compression fracture Presentation: 06/08 06:03 Chief complaint: EMS states: Patient needs pain medication for her back pain. tb4 Coronavirus screen: At this time, the client does not indicate any symptoms associated with coronavirus-19. Ebola Screen: No symptoms or risks identified at this time. Initial Sepsis Screen: Does the patient meet any 2 criteria? No. Patient's initial sepsis screen is negative. Does the patient have a suspected source of infection? No. Patient's initial sepsis screen is negative. Risk Assessment: Do you want to hurt yourself or someone else? Patient reports no desire to harm self or others. Onset of symptoms is unknown. 06:03 Method Of Arrival: EMS: [facility] 4 06:03 Acuity: ENMANUEL 4 tb4 Triage Assessment: 06:23 General: Appears uncomfortable, Behavior is cooperative, agitated. Pain: Complains of tb4 pain in back Pain does not radiate. Pain currently is 10 out of 10 on a pain scale. Quality of pain is described as aching, sharp, Pain began gradually, Is continuous. Neuro: Level of Consciousness is awake, alert, obeys commands, Oriented to person, place, time, situation, Moves all extremities. Full function Weakness Generalized . Gait is unsteady, Patient uses a walker. Speech is normal, Facial symmetry appears normal. Cardiovascular: Patient's skin is warm and dry. Respiratory: Airway is patent Respiratory effort is even, unlabored, Respiratory pattern is regular, symmetrical. GI: No signs and/or symptoms were reported involving the gastrointestinal system. : No signs and/or symptoms were reported regarding the genitourinary system. Derm: No signs and/or symptoms reported regarding the dermatologic system. Skin is intact, is healthy with good turgor, Skin is dry, Skin is normal, Skin temperature is warm. Musculoskeletal: Circulation, motion, and sensation intact. Range of motion: intact in all extremities. Historical: - Allergies: :23 No Known Allergies; tb4 - Home Meds: 06:23 albuterol sulfate 90 mcg/actuation Inhl HFAA 1 puff every 4 hours [Active]; lisinopril tb4 20 mg Oral tab 1 tab once daily [Active]; prednisone 20 mg Oral tab 1 tab 2 times per day [Active]; omeprazole 40 mg Oral cpDR 1 cap once daily [Active]; aspirin 81 mg Oral TbEC 1 tab once daily [Active]; ProAir HFA 90 mcg/actuation inhalation HFAA [Active]; ranitidine HCl 150 mg Oral tab 1 tab once daily [Active]; Thiamine Oral [Active]; tiotropium bromide inhalation once daily [Active]; tramadol 50 mg Oral tab 1 tab twice a day [Active]; - PMHx: GERD; CVA; COPD; CAD; Alcoholism; Hypertension; Myocardial infarction; HEART STENT; tb4 - PSHx: section; tb4 - Immunization history:: Adult Immunizations up to date. - Infectious Disease History:: Denies. - Social history:: Patient/guardian denies using alcohol, street drugs, IV drugs, tobacco products, Smoking status: Patient denies any tobacco usage or history of. Screenin:30 [facility] ED Fall Risk Assessment (Adult) History of falling in the last 3 months, tb4 including since admission No falls in past 3 months (0 pts) Confusion or Disorientation No (0 pts) Intoxicated or Sedated No (0 pts) Impaired Gait Yes (1 pt) Mobility Assist Device Used Yes (1 pt) Altered Elimination No (0 pt) Score/Fall Risk Level 0 - 2 = Low Risk Maintained a safe environment. Abuse screen: Denies threats or abuse. Denies injuries from another. Nutritional screening: No deficits noted. Tuberculosis screening: No symptoms or risk factors identified. Assessment: 06:30 General: Appears uncomfortable, Behavior is cooperative, agitated. Pain: Complains of tb4 pain in back Pain does not radiate. Pain currently is 10 out of 10 on a pain scale. Quality of pain is described as pressure, shooting. Neuro: Level of Consciousness is awake, alert, obeys commands, Oriented to person, place, time, situation, Moves all extremities. Full function Weakness Generalized. Gait is unsteady, Patient uses a walker. Speech is normal, Facial symmetry appears normal. Cardiovascular: Patient's skin is warm and dry. Respiratory: Airway is patent Respiratory effort is even, unlabored, Respiratory pattern is regular, symmetrical. GI: No signs and/or symptoms were reported involving the gastrointestinal system. : No signs and/or symptoms were reported regarding the genitourinary system. EENT: No signs and/or symptoms were reported regarding the EENT system. Derm: No signs and/or symptoms reported regarding the dermatologic system. Skin is intact, is healthy with good turgor, Skin is dry, Skin is normal. Musculoskeletal: Circulation, motion, and sensation intact. Range of motion: intact in all extremities. Vital Signs: 06:12 BP 170 / 75; Pulse 89; Resp 18; Temp 97.8; Pulse Ox 100% on R/A; Weight 47.17 kg; oe Height 5 ft. 1 in. ; 06:23 BP 170 / 77; Pulse 71; Resp 19; Temp 97.9(O); Pulse Ox 100% on R/A; Height 5 ft. 4 in. tb4 ; Pain 10/10; 07:25 BP 156 / 68; Pulse 89; Resp 19; Pulse Ox 97% on 3 lpm NC; iw 06:12 Body Mass Index 19.65 (47.17 kg, 162.56 cm) oe 06:23 Pain Scale: Adult tb4 ED Course: 06:11 Patient arrived in ED. cp4 06:12 Al Early MD is Attending Physician. sp3 06:23 Triage completed. tb4 06:23 Arm band placed on right wrist. tb4 06:30 Patient has correct armband on for positive identification. Bed in low position. Call tb4 light in reach. Side rails up X 1. Side rails up X2. Client placed on continuous cardiac and pulse oximetry monitoring. NIBP monitoring applied. Pulse ox on. Door closed. Warm blanket given. 06:30 No provider procedures requiring assistance completed. tb4 07:25 Melissa Muniz, MESHA is Primary Nurse. iw 07:25 Patient did not have IV access during this emergency room visit. iw Administered Medications: 06:19 Drug: Ketorolac IM 30 mg IM once Route: IM; Site: left deltoid; tb4 07:25 Follow up: Response: No adverse reaction; Pain is decreased iw Medication: 06:30 VIS not applicable for this client. tb4 Outcome: 06:17 Discharge ordered by . sp3 07:25 Discharged to [facility]. iw 07:25 Condition: good 07:25 Discharge instructions given to patient, Instructed on discharge instructions, follow up and referral plans. Demonstrated understanding of instructions, follow-up care, 07:27 Patient left the ED. iw Signatures: Melissa Muniz, RN RN iw Mike Fuentes Setul, MD MD sp3 Doris Burkett 4 Bushra Perry, RN RN tb4
[2025-06-08 07:33] VITALS: TEMP 97.9
[2025-06-08 07:36] VITALS: BP 156/68; O2SAT 97
== END 2025-06-08 07:27 | disposition home or self-care (01) ==
LOC: ER 06:06
DX: M54.9 Dorsalgia, unspecified (principal); Z87.81 Personal history of (healed) traumatic fracture
CPT/HCPCS: 96372; 99284; J1885